=== PATIENT | female | born 1960 | race Caucasian/White ===

== ENCOUNTER 2020-04-16 13:41 | Inpatient (IN) | payer MEDICARE, MEDICAID, SELFPAY ==
[2020-04-16 13:52] VITALS: BP 104/83; PULSE 128; RESP 18; TEMP 36.6; O2SAT 95; BMI 32.9
[2020-04-16 14:55] LABS: Basophils Absolute Auto 0.1 X10*3/uL (0.0-0.2); Basophils Percent Auto 0.2 % (0-2); Eosinophils Absolute Auto 0.3 X10*3/uL (0.0-0.4); Hematocrit 42.8 % (37-47); Imm Gran Abs Auto 0.15 X10*3/uL (0.00-0.03); Imm Gran Pct Auto 0.5 % (0.0-0.4); Lymphocytes Percent Auto 7.2 % (20-40); MANUAL DIFF FLAG SCAN; Mean Corpuscular HGB Conc 32.7 g/dl (31.0-35.0); Mean Corpuscular Hemoglobin 29.1 pg (27.0-33.0); Mean Platelet Volume 10.7 fL (9.4-12.3); Monocytes Absolute Auto 1.4 X10*3/uL (0.1-1.2); Monocytes Percent Auto 4.9 % (2-11); Neutrophils Absolute Auto 23.8 X10*3/uL (2.0-8.3); Neutrophils Percent Auto 86.2 % (45-73); Platelet Count 412 X10*3/uL (160-400); Red Blood Count 4.81 X10*6/uL (4.20-5.50); Red Cell Distribution Width 12.7 % (11.0-16.0); SCAN SMEAR FLAG 1; White Blood Count 27.7 X10*3/uL (4.8-10.8)
[2020-04-16 15:21] LABS: Anion Gap 19 (12-20); Blood Urea Nitrogen 21 mg/dL (9-16); Calcium 9.8 mg/dL (8.4-10.2); Carbon Dioxide 24 mmol/L (22-29); Chloride 97 mmol/L (96-108); Creatinine Clr Calc Pharmacy 50.8; Estimated Glomerular Filt Rate 44; Glucose Random 189 mg/dL (60-115); Potassium 4.5 mmol/l (3.3-5.1); Sodium 135 mmol/L (135-145)
[2020-04-16 15:26] LABS: SLIDE REVIEW VERIFIED
[2020-04-16 19:34] VITALS: BP 103/66; PULSE 116; RESP 18; TEMP 37.1; O2SAT 96
--- NOTE | 2020-04-16 19:52 | CT_ITS ---
EXAMINATION: CT ABDOMEN AND PELVIS WITH CONTRAST CLINICAL INFORMATION: Left lower quadrant pain. COMPARISON: 09/27/2019 CT abdomen pelvis TECHNIQUE: Multidetector volumetric images were obtained from the superior aspect of the liver through the pubic symphysis following administration 100 mL of Omnipaque 350 intravenous contrast. Sagittal and coronal reformatted images were obtained on the technologist's workstation. Oral contrast: No This CT examination was performed using dose optimization techniques as appropriate, variously including the following: *Automated exposure control *Adjustment of mA and/or kV according to patient size (this includes techniques or standardized protocols for targeted exams where dose is matched to indication/reason for exam; i.e. extremities or head) *Use of iterative reconstruction technique DLP: 587 mGy-cm FINDINGS: LUNG BASES: The visualized lung bases are unremarkable. LIVER, GALLBLADDER, AND BILIARY TREE: Mild low-attenuation of liver parenchyma due to fatty change. Stable small hypodense lesion in the caudate lobe unchanged since CAT scan 09/27/2019. No suspicious focal liver lesion or intrahepatic bile duct dilatation. The right lobe of liver measures 19 cm superior inferior. Gallbladder is not visualized. There is no bile duct dilatation. PANCREAS: Unremarkable. SPLEEN: Unremarkable. ADRENAL GLANDS: Unremarkable. KIDNEYS AND URETERS: Mild fullness of the right and left renal pelvis and calyces without hydroureter. No renal or ureteral stone. Small exophytic cortical cyst at the midpole the right kidney. BLADDER: Unremarkable. GASTROINTESTINAL TRACT: Status post partial left kidney. Surgical suture line at the lower central pelvis at the rectum sigmoid junction. There are surgical sutures around the mid distal small bowel. There is no abnormal dilatation of the bowel loops or evidence of obstruction. There are scattered diverticula of the colon. There is no diverticulitis. There is no bowel wall thickening /edema. There is no bowel obstruction. There is a moderate volume of stool in the colon. The appendix is normal . The stomach is normal. There is no hiatal hernia. ABDOMINAL WALL: There is a complex Fat-containing abdominal wall hernia at the umbilicus and extending inferiorly. Inferior to the umbilicus is the largest hernia. This contains nonobstructed loops of small bowel. There is also a small right-sided spigelian hernia which contains nonobstructed loops of small bowel as well. LYMPH NODES: Normal. VASCULAR: Stable coarse calcification in the right gonadal vein. Normal enhancement of the abdominal and pelvic vasculature. PELVIC VISCERA: Unremarkable. OSSEOUS STRUCTURES: Unremarkable. CT/CT abdomen pelvis w con IMPRESSION: 1. No acute abnormality the abdomen or pelvis. 2. Stable ventral wall hernias and right-sided scalene hernia containing nonobstructive bowel loops. 3. Mild fullness of the right and left renal systems unchanged since prior studies. No renal or ureteral calculi. 4. Gallbladder is absent. No bile duct dilatation. 5. Hepatic steatosis. Stable small hypodense lesion caudate lobe
[2020-04-16] MEDS: iohexoL 350 MG/ML 100 ML INFUS..BTL IV (20:19)
--- NOTE | 2020-04-16 20:21 | ED_ITS ---
HPI - Abdominal Pain General Chief Complaint: Abdominal Pain Stated Complaint: abd pain Time Seen by Provider: 04/16/20 19:43 Source: patient Mode of arrival: ambulatory Limitations: no limitations History of Present Illness HPI narrative: Patient presents to ED for left lower quadrant pain. Patient states she is taking antibiotics for her diverticulitis that was diagnosed by telehealth by her PCP last . Patient states she started taking the meds yesterday. Patient denies any hematuria or dysuria, patient states no flank pain, fever, chills. Patient states history of multiple episodes of diverticul itis in the past. MD elicited complaint: abdominal pain Related Data Allergies Allergy/AdvReac Type Severity Reaction Status Date / Time Penicillins [PENICILLINS] Allergy Severe RASH Unverified 01/12/20 14:52 gabapentin [GABAPENTIN] Allergy Mild ABD PAIN Unverified 01/12/20 14:52 esomeprazole [Nexium] Allergy Unknown rash Verified 10/24/13 00:00 famotidine [From PEPCID] Allergy Unknown UPSET Unverified 01/12/20 14:52 STOMACH lansoprazole [Prevacid] Allergy Unknown rash Verified 10/24/13 00:00 penicillin V Allergy Unknown stomach Verified 10/24/13 00:00 pains From NEXIUM Allergy Unknown RASH Uncoded 01/12/20 14:52 Review of Systems Constitutional: Reports as per HPI and Reports no additional constitutional complaints Eyes: Reports as per HPI and Reports no additional eye complaints Reports system reviewed and no additional complaints, except as documented and Reports as per HPI Cardiovascular: Reports as per HPI and Reports no additional cardiovascular complaints Respiratory: Reports as per HPI and Reports no additional respiratory complaints Gastrointestinal: Reports as per HPI, Reports no additional gastrointestinal complaints, Reports abdominal pain and Reports vomiting Genitourinary: Reports no additional female genitourinary complaints and Reports as per HPI Musculoskeletal: Reports no additional musculoskeletal complaints and Reports as per HPI Skin/Breast: Reports system reviewed and no additional complaints, except as docu and Reports as per HPI Reports system reviewed and no additional complaints, except as documented and Reports as per HPI Physical Exam Vital Signs: Vital Signs: Last Vital Signs Temp 99.4 F 04/17/20 00:21 Pulse 112 H 04/17/20 00:21 Resp 16 04/17/20 00:21 BP 124/68 04/17/20 00:21 Pulse Ox 95 04/17/20 00:21 Body Mass Index 32.9 Const: General: cooperative, healthy appearing, comfortable, no acute distress, well developed, alert and awake Orientation/consciousness: oriented to person, oriented to place, oriented to time and patient oriented x3 HENMT: Head: Yes normal to inspection and Yes No palpable skull fracture present Eyes: General: appearance normal, both eyes and all related structures Neck: Neck: Yes normal visual inspection and Yes full ROM Chest: Chest palpation & inspection: normal inspection of the chest and normal palpation of entire chest wall Resp: Effort & Inspection: normal respiratory effort and able to speak in complete sentences Cardio: Jugular venous distension: no JVD Heart sounds: S1 normal heart sound present and S2 normal heart sound present GI: Inspection: Yes normal to inspection and No abdominal wall ecchymosis Palpation (GI): Soft to palpation, not firm and Tenderness to palpation present (GI) in the LLQ : General: No CVA tenderness and Yes no CVA tenderness Back/Spine/Pelvis: Back: no CVA tenderness, No CVA tenderness and No back tenderness Skin: General skin exam: no rashes or lesions noted and elasticity normal Neuro: General: oriented to person, oriented to place, oriented to time, patient oriented x3 and CN's II-XI intact bilaterally Cranial nerves: Yes CN's II-XII intact bilaterally Extrem: General: Yes normal to inspection and Yes full ROM Psych: Appearance: grossly normal, well kempt and not disheveled Course Course Course Narrative: Patient was in the waiting room for 5 hours before I saw her in a bed. Patient already have blood work done. Patient white blood cell count 27 and tachycardiac. Vital signs and labs were done and waiting room. Will start septic protocol which includes 2 L IV fluids, Levaquin, metronidazole IV antibiotics, and lactic acid. Patient also sent for abdominal CT scan Reevaluation(s) Reevaluation #1: Patient's abdominal CT scan came back negative for diverticulitis. Urine negative for infection. Chest x-ray negative for pneumonia. Due to patient meeting SIRS criteria is still having ?dry abdominal pain patient will be admitted to hospitalist service. Case accepted by hospitalist on-call. Time: 00:55 MDM - Abdominal Pain MDM Narrative Medical decision making narrative: Abdominal pain Lab Data Result diagrams: 04/16/20 14:48 04/16/20 14:48 Labs: Lab Results 04/16/20 04/16/20 04/16/20 Range/Units 14:48 14:48 20:07 WBC 27.7 H (4.8-10.8) X10*3/uL RBC 4.81 (4.20-5.50) X10*6/uL Hgb 14.0 (12.0-16.0) g/dl Hct 42.8 (37-47) % MCV 89.0 (80-98) fL MCH 29.1 (27.0-33.0) pg MCHC 32.7 (31.0-35.0) g/dl RDW 12.7 (11.0-16.0) % Plt Count 412 H (160-400) X10*3/uL MPV 10.7 (9.4-12.3) fL Immature Gran % (Auto) 0.5 H (0.0-0.4) % Neut % (Auto) 86.2 H (45-73) % Lymph % (Auto) 7.2 L (20-40) % [place] % (Auto) 4.9 (2-11) % Eos % (Auto) 1.0 (0-4) % Baso % (Auto) 0.2 (0-2) % Lymph # (Auto) 2.0 (1.2-4.9) X10*3/uL [place] # (Auto) 1.4 H (0.1-1.2) X10*3/uL Eos # (Auto) 0.3 (0.0-0.4) X10*3/uL Baso # (Auto) 0.1 (0.0-0.2) X10*3/uL Abs Immat Gran (auto) 0.15 H (0.00-0.03) X10*3/uL Absolute Neuts (auto) 23.8 H (2.0-8.3) X10*3/uL Absolute Nucleated RBC 0.000 (0.0-0.012) X10*3/uL Nucleated RBC % (auto) 0.0 (0.0-0.2) /100WBC Smear Tech's Comments VERIFIED Sodium 135 (135-145) mmol/L Potassium 4.5 (3.3-5.1) mmol/l Chloride 97 (96-108) mmol/L Carbon Dioxide 24 (22-29) mmol/L Anion Gap 19 (12-20) BUN 21 H (9-16) mg/dL Creatinine 1.24 (0.5-1.4) mg/dL Estim Creat Clear Calc 50.8 Estimated GFR 44 Random Glucose 189 H (60-115) mg/dL Lactic Acid 2.1 H* (0.5-2.0) mmol/L Lactic Acid Fup @ 2Hr (0.5-2.0) mmol/L Calcium 9.8 (8.4-10.2) mg/dL Urine Color Urine Appearance Urine pH (5.0-8.0) Ur Specific [place] (1.005-1.025) Urine Protein (NEG-TRACE) MG/DL Urine Glucose (UA) (NEG) MG/DL Urine Ketones (NEG) MG/DL Urine Blood (NEG) Urine Nitrite (NEG) Ur Leukocyte Esterase (NEG) 04/16/20 04/16/20 Range/Units 21:31 22:30 WBC (4.8-10.8) X10*3/uL RBC (4.20-5.50) X10*6/uL Hgb (12.0-16.0) g/dl Hct (37-47) % MCV (80-98) fL MCH (27.0-33.0) pg MCHC (31.0-35.0) g/dl RDW (11.0-16.0) % Plt Count (160-400) X10*3/uL MPV (9.4-12.3) fL Immature Gran % (Auto) (0.0-0.4) % Neut % (Auto) (45-73) % Lymph % (Auto) (20-40) % [place] % (Auto) (2-11) % Eos % (Auto) (0-4) % Baso % (Auto) (0-2) % Lymph # (Auto) (1.2-4.9) X10*3/uL [place] # (Auto) (0.1-1.2) X10*3/uL Eos # (Auto) (0.0-0.4) X10*3/uL Baso # (Auto) (0.0-0.2) X10*3/uL Abs Immat Gran (auto) (0.00-0.03) X10*3/uL Absolute Neuts (auto) (2.0-8.3) X10*3/uL Absolute Nucleated RBC (0.0-0.012) X10*3/uL Nucleated RBC % (auto) (0.0-0.2) /100WBC Smear Tech's Comments Sodium (135-145) mmol/L Potassium (3.3-5.1) mmol/l Chloride (96-108) mmol/L Carbon Dioxide (22-29) mmol/L Anion Gap (12-20) BUN (9-16) mg/dL Creatinine (0.5-1.4) mg/dL Estim Creat Clear Calc Estimated GFR Random Glucose (60-115) mg/dL Lactic Acid (0.5-2.0) mmol/L Lactic Acid Fup @ 2Hr 1.8 (0.5-2.0) mmol/L Calcium (8.4-10.2) mg/dL Urine Color YELLOW Urine Appearance CLEAR Urine pH 5.5 (5.0-8.0) Ur Specific [place] 1.025 (1.005-1.025) Urine Protein NEG (NEG-TRACE) MG/DL Urine Glucose (UA) 500 H (NEG) MG/DL Urine Ketones 5 (NEG) MG/DL Urine Blood NEG (NEG) Urine Nitrite NEG (NEG) Ur Leukocyte Esterase NEG (NEG) Discharge Plan Discharge Clinical Impression: Abdominal pain, SIRS (systemic inflammatory response syndrome) Patient Disposition: Admitted As Inpatient [facility] Past Medical History Medical History Asthma Depression Diabetes 1.5, managed as type 2 HTN (hypertension) Migraines Social History Social History Alcohol intake: never Smoking Status: Never smoker Use of substances other than those prescribed or required for medical reasons: No Advance Directives: No
[2020-04-16] MEDS: 0.9 % Sodium Chloride 1,000 ML 999 ML IV ×3 (20:26→22:15)
[2020-04-16] MEDS: metroNIDAZOLE/NS 500 MG/100 ML PIGGYBACK 100 MG IV (20:27)
[2020-04-16 21:02] LABS: Lactic Acid 2.1 mmol/L (0.5-2.0)
[2020-04-16] MEDS: Morphine Sulfate 4 MG/ML CARTRIDGE IVPUSH (21:03)
[2020-04-16] MEDS: ondansetron HCL 4 MG/2 ML VIAL IVPUSH (21:03)
[2020-04-16] MEDS: levoFLOXacin/D5W 750 MG/150 ML PIGGYBACK 100 MG IV (21:29)
[2020-04-16 21:37] VITALS: BP 116/68; PULSE 101; RESP 14; TEMP 36.7
[2020-04-16 21:38] LABS: Glucose Urine UA 500 MG/DL (NEG); Leukocyte Esterase Urine NEG (NEG); Nitrite Urine NEG (NEG); PH 5.5 (5.0-8.0); Specific Gravity - Urine 1.025 (1.005-1.025); Urine Blood NEG (NEG); Urine Ketones 5 MG/DL (NEG); Urine Protein NEG (NEG-TRACE)
[2020-04-16 21:42] LABS: Appearance Urine CLEAR; Color Urine YELLOW
--- NOTE | 2020-04-16 22:02 | XR_ITS ---
EXAMINATION: XR CHEST CLINICAL INFORMATION: Pneumonia COMPARISON: None TECHNIQUE: Frontal view of the chest was obtained. FINDINGS: Aside from hypoexpanded lungs and some minimal basilar cysts, no significant abnormality is noted involving the heart, lungs, mediastinum, bony thorax or soft tissues. XR/XR chest 1V IMPRESSION: No acute intrathoracic disease
[2020-04-16 22:13] LABS: Reflex Lactate? Lactic Acid Added
[2020-04-16 22:50] LABS: ~Lactic Acid-LAB USE ONLY 1.8 mmol/L (0.5-2.0)
[2020-04-17] VITALS (12 sets, daily range): BP systolic 98–138; BP diastolic 55–74; PULSE 56–112; RESP 16–20; TEMP 36.2–37.4; O2SAT 95–98; BMI 32.9
[2020-04-17 01:15] LABS: COVID-19 Test Negative (Negative)
--- NOTE | 2020-04-17 05:31 | P.HPHOSP_ITS ---
History of Present Illness Date of Service: 04/17/20 Chief Complaint: Abdominal pain This is a 59-year-old female with past medical history of diabetes, hypertension, migraine headaches, depression, asthma, history of diverticulitis status post colectomy who presents to the hospital with complaints of left lower quadrant abdominal pain that started on [place] night. Patient describes the pain as stabbing, 10/10, nonradiating, associated with nausea and vomiting, no diarrhea. Patient was clinically treated by her PCP for diverticulitis and was started on Cipro and Flagyl but patient was unable to give a down for 2 days. Therefore she decided to come to the hospital. She otherwise denies any chest pain, no shortness of breath cough. No fever but has been having chills. Currently experiencing a migraine headache , no change in vision, no urinary symptoms and no lower extremity edema. No weakness numb ness or tingling. On arrival to the ED hemodynamically stable with a heart rate of 128, other vitals normal Labs are significant for WBC count of 27.7, with a left shift, CMP significant for lactic acid of 2.1 which improved after fluids, BUN of 21, creatinine of 1.24 (baseline of 1.0) CT abdomen/pelvis shows no acute abnormality Past medical history: Diabetes, hypertension, migraine headache, depression, asthma, history of diverticulitis Surgical history: Colectomy after perforated diverticulitis per patient, hysterectomy, cholecystectomy Family history: Significant for diabetes hypertension Social history: Comes from home, denies any tobacco alcohol or illicit drugs Review of Systems Review of Systems: Yes all other systems are reviewed and are negative Neurologic: Reports system reviewed and no additional complaints, except as documented and Reports as per [facility] Medical History Asthma Depression Diabetes 1.5, managed as type 2 HTN (hypertension) Migraines Social History Household Members: Significant Other Housing: Apartment Do you presently have visiting nurse or other home services: No Alcohol intake: never Smoking Status: Never smoker Use of substances other than those prescribed or required for medical reasons: No Have you been hit, kicked, punched, or otherwise hurt by someone within the past year? If so, by whom?: No Do you feel safe in your current relationship?: Yes Is there a partner from a previous relationship who is making you feel unsafe now?: No Are you made to feel afraid or neglected: No Advance Directives: No Do you have thoughts of harming others: None Do you have a plan to hurt others: No Plan Recently lost weight without trying: No Meds Allergies Allergy/AdvReac Type Severity Reaction Status Date / Time Penicillins [PENICILLINS] Allergy Severe RASH Verified 04/17/20 05:30 gabapentin [GABAPENTIN] Allergy Mild ABD PAIN Verified 04/17/20 05:30 esomeprazole [Nexium] Allergy Unknown rash Verified 10/24/13 00:00 famotidine [From PEPCID] Allergy Unknown UPSET Verified 04/17/20 05:30 STOMACH lansoprazole [Prevacid] Allergy Unknown rash Verified 10/24/13 00:00 penicillin V Allergy Unknown stomach Verified 10/24/13 00:00 pains From NEXIUM Allergy Unknown RASH Uncoded 01/12/20 14:52 Home Medications Medication Instructions Recorded Confirmed Type aspirin 81 mg PO DAILY 04/17/20 04/17/20 History atorvastatin 1 tab PO DAILY 04/17/20 04/17/20 History budesonide-formoterol [Symbicort] 2 puff PO BID 04/17/20 04/17/20 History bupropion HCl 1 tab PO QAM 04/17/20 04/17/20 History yyrgqcshdl-mzzdgwi-nywwctov 1 cap PO Q6H PRN 04/17/20 04/17/20 History calcium carbonate-vitamin D3 1 tab PO BID 04/17/20 04/17/20 History empagliflozin [Jardiance] 1 tab PO DAILY 04/17/20 04/17/20 History glimepiride See Rx Instructions .ROUTE .COMPLEX 04/17/20 04/17/20 History hydroxyzine HCl 1 tab PO DAILY 04/17/20 04/17/20 History levocetirizine 1 tab PO BEDTIME 04/17/20 04/17/20 History lisinopril 1 tab PO DAILY 04/17/20 04/17/20 History omeprazole 2 cap PO BID 04/17/20 04/17/20 History ondansetron HCl 1 tab PO Q8H 04/17/20 04/17/20 History pregabalin 1 cap PO DAILY 04/17/20 04/17/20 History sucralfate 1 tab PO TID 04/17/20 04/17/20 History sumatriptan succinate 100 mg PO DAILY 04/17/20 04/17/20 History tiotropium bromide [Spiriva 2 puff INHALATION DAILY 04/17/20 04/17/20 History Respimat] tizanidine 1 tab PO TID 04/17/20 04/17/20 History zafirlukast 1 tab PO BID 04/17/20 04/17/20 History zolpidem 1 tab PO BEDTIME PRN 04/17/20 04/17/20 History Physical Exam Vital Signs and Narrative: Vital Signs: Last Vital Signs Temp 97.5 F 04/17/20 05:15 Pulse 56 04/17/20 05:15 Resp 18 04/17/20 05:15 BP 126/74 04/17/20 05:15 Pulse Ox 95 04/17/20 05:15 Body Mass Index 32.9 Const: General: cooperative and no acute distress Orientatio n/consciousness: patient oriented x3 Eyes: General: appearance normal, both eyes and all related structures Pupils: Equal, round and reactive pupils present Resp: Effort & Inspection: normal respiratory effort and able to speak in complete sentences Auscultation: clear to auscultation bilaterally Cardio: Rate: regular rate Rhythm: regular rhythm GI: Other: Very tender to soft palpation, in the left lower quadrant, there is rebound tenderness Auscultation: normal bowel sounds Skin: General skin exam: no rashes or lesions noted Neuro: General: patient oriented x3 Cranial nerves: Yes Equal, round and reactive pupils present Cognition (Neuro): normal cognition Extrem: General: Yes normal to inspection and Yes no pedal edema Results Labs CBC and Chem 7: 04/16/20 14:48 04/16/20 14:48 Labs: Laboratory Results - last 24 hr 04/16/20 04/16/20 04/16/20 14:48 14:48 20:07 MCV 89.0 MCH 29.1 MCHC 32.7 RDW 12.7 Plt Count 412 H MPV 10.7 Immature Gran % (Auto) 0.5 H Neut % (Auto) 86.2 H Lymph % (Auto) 7.2 L [place] % (Auto) 4.9 Eos % (Auto) 1.0 Baso % (Auto) 0.2 Lymph # (Auto) 2.0 [place] # (Auto) 1.4 H Eos # (Auto) 0.3 Baso # (Auto) 0.1 Abs Immat Gran (auto) 0.15 H Absolute Neuts (auto) 23.8 H Absolute Nucleated RBC 0.000 Nucleated RBC % (auto) 0.0 Smear Tech's Comments VERIFIED Anion Gap 19 Estim Creat Clear Calc 50.8 Estimated GFR 44 Random Glucose 189 H Lactic Acid 2.1 H* Lactic Acid Fup @ 2Hr Calcium 9.8 Urine Color Urine Appearance Urine pH Ur Specific [place] Urine Protein Urine Glucose (UA) Urine Ketones Urine Blood Urine Nitrite Ur Leukocyte Esterase COVID-19 (MARCI) COVID-19 Clin Com 04/16/20 04/16/20 04/17/20 21:31 22:30 00:35 MCV MCH MCHC RDW Plt Count MPV Immature Gran % (Auto) Neut % (Auto) Lymph % (Auto) [place] % (Auto) Eos % (Auto) Baso % (Auto) Lymph # (Auto) [place] # (Auto) Eos # (Auto) Baso # (Auto) Abs Immat Gran (auto) Absolute Neuts (auto) Absolute Nucleated RBC Nucleated RBC % (auto) Smear Tech's Comments Anion Gap Estim Creat Clear Calc Estimated GFR Random Glucose Lactic Acid Lactic Acid Fup @ 2Hr 1.8 Calcium Urine Color YELLOW Urine Appearance CLEAR Urine pH 5.5 Ur Specific [place] 1.025 Urine Protein NEG Urine Glucose (UA) 500 H Urine Ketones 5 Urine Blood NEG Urine Nitrite NEG Ur Leukocyte Esterase NEG COVID-19 (MARCI) Negative COVID-19 Clin Com See Note Imaging Radiologist's Impressions: Impressions Abdomen/Pelvis CT 04/16/20 19:52 IMPRESSION: 1. No acute abnormality the abdomen or pelvis. 2. Stable ventral wall hernias and right-sided scalene hernia containing nonobstructive bowel loops. 3. Mild fullness of the right and left renal systems unchanged since prior studies. No renal or ureteral calculi. 4. Gallbladder is absent. No bile duct dilatation. 5. Hepatic steatosis. Stable small hypodense lesion caudate lobe Chest X-Ray 04/16/20 22:02 IMPRESSION: No acute intrathoracic disease Assessment and Plan (1) Abdominal pain: Status: Acute (2) SIRS (systemic inflammatory response syndrome): Status: Acute (3) History of diverticulitis: Status: Acute This is an 59-year-old female who presents hospital with abdominal pain # intractable abdominal pain - patient has a history of diverticulitis, and although CT abdomen is negative, patient has intractable left lower quadrant abdominal - has leukocytosis with left shift - tachycardia, afebrile, - was treated with antibiotics outpatient was unable to acute p.o. due to constant vomiting Plan: - will start patient on antibiotics for presumed treatment of diverticulitis - pain control - follow symptom relief and also blood cultures # sepsis - has leukocytosis, tachycardia, lactic acidosis - source most likely diverticulitis although CT abdomen is negative Plan: - IV antibiotics as above - follow cultures # migraine headache - resume home regimen DVT prophylaxis: Lovenox
[2020-04-17] MEDS: cefTRIAXone sodium 1 GM in 0.9 % Sodium Chloride 50 ML IV (06:19)
[2020-04-17] MEDS: Morphine Sulfate 2 MG/ML CARTRIDGE IVPUSH ×4 (06:20→19:59)
[2020-04-17] MEDS: ondansetron HCL 4 MG/2 ML VIAL IVPUSH ×2 (06:20→17:10)
[2020-04-17] MEDS: Enoxaparin Sodium 40 MG/0.4 ML SYRINGE SUBCUT (06:21)
[2020-04-17] MEDS: Omeprazole 20 MG CAPSULE.DR 40 MG PO ×2 (06:25→17:10)
[2020-04-17] MEDS: metroNIDAZOLE/NS 500 MG/100 ML PIGGYBACK 100 MG IV ×3 (06:56→21:55)
[2020-04-17] MEDS: Fluticasone/Vilanterol 100/25 BLST.W.DEV 1 PUFF INHALE (07:43)
[2020-04-17] MEDS: Atorvastatin Calcium 20 MG TABLET PO (07:59)
[2020-04-17] MEDS: Aspirin Enteric Coated 81 MG TABLET.DR PO (07:59)
[2020-04-17] MEDS: SUMAtriptan succinate 100 MG TABLET PO (07:59)
[2020-04-17] MEDS: Pregabalin 150 MG CAPSULE PO (07:59)
[2020-04-17] MEDS: hydrOXYzine HCL 25 MG TABLET PO (07:59)
[2020-04-17] MEDS: Sucralfate 1 GM TABLET PO ×3 (07:59→17:10)
[2020-04-17] MEDS: buPROPion HCl XL 150 MG TAB.ER.24H PO (07:59)
[2020-04-17] MEDS: TiZANidine HCL 4 MG TABLET 2 MG PO ×3 (08:00→19:58)
[2020-04-17] MEDS: lisinopriL 10 MG TABLET PO (08:01)
[2020-04-17] MEDS: 0.9 % Sodium Chloride Flush 3 ML SYRINGE IVFLUSH ×2 (08:01→21:55)
[2020-04-17 08:12] LABS: Glucose, Whole Blood 105 mg/dL (60-115)
--- NOTE | 2020-04-17 10:13 | MHC.CM.PN ---
dc plan home n coraeiazul pt has own transportion home
[2020-04-17 11:27] LABS: Glucose, Whole Blood 112 mg/dL (60-115)
--- NOTE | 2020-04-17 12:07 | HO.PM.IMPN ---
Subjective Subjective Date of Service: 04/17/20 Interval History: abd pain Cardiovascular Cardiovascular: Reports no additional cardiovascular complaints Respiratory Respiratory: Reports no additional respiratory complaints Physical Exam Vital Signs: Vital Signs: Last Vital Signs Temp 97.7 F 04/17/20 11:29 Pulse 68 04/17/20 11:29 Resp 20 04/17/20 11:29 BP 106/57 L 04/17/20 11:29 Pulse Ox 95 04/17/20 11:29 Body Mass Index 32.9 General: AO X 3, no acute distress Resp: CTA bilateral CVS: S1,S2,RRR GI: soft, LLQ tender Neuro: motor grossly intact Psych: appropriate affect Objective Data Current Medications Generic Name Dose Route Start Last Admin Trade Name Freq PRN Reason Stop Dose Admin Acetaminophen 650 mg 04/17/20 04:38 Acetaminophen 325 Mg Tablet PO Q6H PRN Pain, Mild (Pain Scale 1-3) Acetaminophen/Butalbital/Caffeine 1 tab 04/17/20 06:24 Butalb/Acetamin/Caff 50/325/40 Tablet PO Q6H PRN Headache Aspirin 81 mg 04/17/20 09:00 04/17/20 07:59 Aspirin Enteric Coated 81 Mg Tablet.Dr PO 81 mg DAILY [facility] Administration Atorvastatin Calcium 20 mg 04/17/20 09:00 04/17/20 07:59 Atorvastatin Calcium 20 Mg Tablet PO 20 mg DAILY [facility] Administration Bupropion HCl 150 mg 04/17/20 09:00 04/17/20 07:59 Bupropion Hcl Xl 150 Mg Tab.Er.24h PO 150 mg DAILY [facility] Administration Docusate Sodium 100 mg 04/17/20 04:38 Docusate Sodium 100 Mg Capsule PO DAILY PRN Constipation Enoxaparin Sodium 40 mg 04/17/20 06:00 04/17/20 06:21 Enoxaparin Sodium 40 Mg/0.4 Ml Syringe SUBCUT 40 mg Q24H [facility] Administration Fluticasone/Vilanterol 1 puff 04/17/20 08:00 04/17/20 07:43 Fluticasone/Vilanterol 100/25 Blst.W.Dev INHALE 1 puff RDAILY [facility] Administration Hydroxyzine HCl 25 mg 04/17/20 09:00 04/17/20 07:59 Hydroxyzine Hcl 25 Mg Tablet PO 25 mg DAILY [facility] Administration Metronidazole 500 mg in 100 mls @ 100 mls/hr 04/17/20 06:00 04/17/20 07:56 Flagyl IV Infused Q8H [facility] Infusion Ceftriaxone Sodium 1 gm/ 50 mls @ 100 mls/hr 04/17/20 06:00 04/17/20 06:49 Sodium Chloride IV Infused Q24H [facility] Infusion Insulin Human Lispro 0 unit 04/17/20 07:30 04/17/20 11:30 Insulin Lispro 100 Unit/Ml 3 Ml Vial SUBCUT Not Given QIDACHS [facility] Protocol Lisinopril 10 mg 04/17/20 09:00 04/17/20 08:01 Lisinopril 10 Mg Tablet PO 10 mg DAILY [facility] Administration Protocol Morphine Sulfate 2 mg 04/17/20 04:38 04/17/20 11:30 Morphine Sulfate 2 Mg/Ml Cartridge IVPUSH 2 mg Q4H PRN Administration Pain, Severe (Pain Scale 7-10) Non-Formulary Medication 1 tab 04/17/20 09:00 Zafirlukast PO BID [facility] Non-Formulary Medication 1 tab 04/17/20 21:00 Levocetirizine PO BEDTIME [facility] Omeprazole 40 mg 04/17/20 06:30 04/17/20 06:25 Omeprazole 20 Mg Capsule.Dr PO 40 mg BID@0630,1630 [facility] Administration Ondansetron HCl 4 mg 04/17/20 04:38 04/17/20 06:20 Ondansetron Hcl 4 Mg/2 Ml Vial IVPUSH 4 mg Q8H PRN Administration Nausea and Vomiting Pregabalin 150 mg 04/17/20 09:00 04/17/20 07:59 Pregabalin 150 Mg Capsule PO 150 mg DAILY [facility] Administration Sodium Chloride 3 ml 04/17/20 08:00 04/17/20 08:01 0.9 % Sodium Chloride Flush 3 Ml Syringe IVFLUSH 3 ml QSHIFT [facility] Administration Sucralfate 1 gm 04/17/20 07:30 04/17/20 11:30 Sucralfate 1 Gm Tablet PO 1 gm TIDAC [facility] Administration Sumatriptan Succinate 100 mg 04/17/20 09:00 04/17/20 07:59 Sumatriptan Succinate 100 Mg Tablet PO 100 mg DAILY PRN Administration Migraine Headache Tiotropium [place] 1 puff 04/17/20 08:00 04/17/20 07:43 Tiotropium [place] 18 Mcg Cap.W.Dev INHALE 1 puff RDAILY [facility] Administration Tizanidine HCl 2 mg 04/17/20 09:00 04/17/20 08:00 Tizanidine Hcl 4 Mg Tablet PO 2 mg TID [facility] Administration Zolpidem Tartrate 5 mg 04/17/20 05:36 Zolpidem Tartrate 5 Mg Tablet PO BEDTIME PRN insomnia Labs CBC & Chem 7: 04/16/20 14:48 04/16/20 14:48 Assessment and Plan (1) Abdominal pain: Status: Acute (2) SIRS (systemic inflammatory response syndrome): Status: Acute (3) History of diverticulitis: Status: Acute Assessment and Plan: 59-year-old female who presents hospital with abdominal pain Left lower quadrant abdominal pain with inflammatory markers on labs No evidence of diverticulitis on CT scan GI eval Empiric antibiotics Doubt sepsis DM insulin HTN lisinipril
--- NOTE | 2020-04-17 13:13 | PM.EVENT ---
Event Note Date of Service: 04/17/20 Event Note: GI consult dictated LLQ pain, etiolgy unclear. Ddx includes partially treated diverticulitis, gastroenteritis, colitis CT reviewed, some nonspecific thickening of sigmoid rec, cont abx, check stools, follow clinically.
--- NOTE | 2020-04-17 13:27 | CONS_ITS ---
DATE OF SERVICE: 04/17/2020 REFERRING PHYSICIAN: Henok Celaya MD REASON FOR CONSULTATION: Left lower quadrant pain. HISTORY OF PRESENT ILLNESS: The patient is a pleasant 59-year-old woman, seen today in consultation because of left lower quadrant pain and she states she had this off and on over a week prior to admission and was seen by her primary care provider for a preop evaluation for cataract surgery and evaluated at that time. She was prescribed antibiotics and started these. Three days prior to admission, the pain became worse in the left lower quadrant, and was associated with nausea and vomiting of blackish material. She was unable to keep the medication down and presented to the emergency room. She denies fevers. She has had some chills. She has had some headaches. She denies any melena or hematochezia. She was evaluated in the emergency department, where she was noted to be tachycardic and laboratory studies showed an elevated white blood cell count to 27.7. She underwent CT scanning of the abdomen and pelvis, which was reviewed with Dr. Robins. This shows some nonspecific thickening in the sigmoid, but is negative for any pericolonic fat stranding. She does have a history of diverticular disease and previously underwent sigmoid resection approximately 10 years ago by her report. She has followed up at [facility] and has undergone upper endoscopy and colonoscopy about 3 years ago, which she states was remarkable for polyps. Those records are not available, but will be reviewed. PAST MEDICAL HISTORY: 1. Hypertension. 2. Diabetes. 3. Asthma. 4. Diverticular disease. 5. Migraines. 6. Depression. 7. Elevated cholesterol. CURRENT MEDICATIONS: Current medication list is reviewed in the chart. ALLERGIES: MULTIPLE MEDICATION ALLERGIES ARE REVIEWED. FAMILY HISTORY: This is reviewed with the patient and is noncontributory. SOCIAL HISTORY: There is no current tobacco, alcohol, or substance abuse. REVIEW OF SYSTEMS: SKIN: No pruritus. HEENT: Negative. CARDIOPULMONARY: She denies shortness of breath or chest pain. GASTROINTESTINAL: As above. GENITOURINARY: Negative. NEUROPSYCHIATRIC: Negative. PHYSICAL EXAMINATION: GENERAL: Shows a pleasant female, lying comfortably in bed. VITAL SIGNS: Reviewed in electronic medical record and are stable. SKIN: Anicteric. HEENT: No scleral icterus. NECK: Without lymphadenopathy or thyromegaly. LUNGS: Clear. HEART: Regular rate and rhythm. S1, S2. No murmur. ABDOMEN: Soft without focal masses or tenderness. Bowel sounds are present. There is some mild tenderness to palpation over the left lower quadrant. There is no guarding or rebound. EXTREMITIES: Without edema. LABORATORY DATA: Reviewed including her CT scan as above. IMPRESSION: Left lower quadrant pain. The etiology for her left lower quadrant pain is not clear. This is a broad differential diagnosis includes diverticular disease as well as colitis and gastroenteritis. We discussed possible causes today. Her CT scan shows some mild nonspecific thickening of the sigmoid and I did discuss with her that she may need followup colonoscopy as an outpatient. Once her present condition improves, I agree with treating her with antibiotics for the time being. I would obtain stool specimens to rule out any treatable infectious etiology and follow her clinically. Thank you for asking me to see her. I will follow her in the hospital with you. MD OSWALDO Grimes/NADYA / [id number]
[2020-04-17] MEDS: Butalb/Acetamin/Caff 50/325/40 TABLET 1 TAB PO ×2 (15:01→21:54)
[2020-04-17 16:50] LABS: Glucose, Whole Blood 93 mg/dL (60-115)
[2020-04-17 21:55] LABS: Glucose, Whole Blood 96 mg/dL (60-115)
[2020-04-17] MEDS: Zolpidem Tartrate 5 MG TABLET PO (21:55)
[2020-04-18] MEDS: Morphine Sulfate 2 MG/ML CARTRIDGE IVPUSH ×6 (04:15→21:35)
[2020-04-18 04:43] LABS: MANUAL DIFF FLAG NO
[2020-04-18 04:57] LABS: Basophils Percent Auto 0.2 % (0-2); Eosinophils Absolute Auto 0.4 X10*3/uL (0.0-0.4); Eosinophils Percent Auto 2.9 % (0-4); Imm Gran Abs Auto 0.08 X10*3/uL (0.00-0.03); Imm Gran Pct Auto 0.6 % (0.0-0.4); Lymphocytes Absolute Auto 2.5 X10*3/uL (1.2-4.9); Lymphocytes Percent Auto 17.7 % (20-40); Mean Corpuscular HGB Conc 32.3 g/dl (31.0-35.0); Mean Corpuscular Hemoglobin 29.5 pg (27.0-33.0); Mean Corpuscular Volume 91.4 fL (80-98); Mean Platelet Volume 10.8 fL (9.4-12.3); Monocytes Absolute Auto 0.9 X10*3/uL (0.1-1.2); Monocytes Percent Auto 6.5 % (2-11); Neutrophils Percent Auto 72.1 % (45-73); Platelet Count 239 X10*3/uL (160-400); Red Blood Count 3.39 X10*6/uL (4.20-5.50); Red Cell Distribution Width 12.6 % (11.0-16.0); White Blood Count 13.9 X10*3/uL (4.8-10.8)
[2020-04-18 05:20] LABS: Anion Gap 12 (12-20); Blood Urea Nitrogen 15 mg/dL (9-16); Calcium 7.6 mg/dL (8.4-10.2); Carbon Dioxide 21 mmol/L (22-29); Chloride 105 mmol/L (96-108); Creatinine Clr Calc Pharmacy 84.1; Estimated Glomerular Filt Rate > 60; Glucose Random 84 mg/dL (60-115); Potassium 3.8 mmol/l (3.3-5.1); Sodium 134 mmol/L (135-145)
[2020-04-18] MEDS: cefTRIAXone sodium 1 GM in 0.9 % Sodium Chloride 50 ML IV (05:38)
[2020-04-18] MEDS: Omeprazole 20 MG CAPSULE.DR 40 MG PO ×2 (05:38→17:27)
[2020-04-18] MEDS: Enoxaparin Sodium 40 MG/0.4 ML SYRINGE SUBCUT (05:38)
[2020-04-18] MEDS: SUMAtriptan succinate 100 MG TABLET PO (05:44)
[2020-04-18] MEDS: metroNIDAZOLE/NS 500 MG/100 ML PIGGYBACK 100 MG IV ×3 (06:14→21:57)
[2020-04-18] MEDS: ondansetron HCL 4 MG/2 ML VIAL IVPUSH ×2 (06:18→19:24)
[2020-04-18 07:25] VITALS: BP 108/63; PULSE 72; RESP 19; TEMP 36.7; O2SAT 94
[2020-04-18] MEDS: Fluticasone/Vilanterol 100/25 BLST.W.DEV 1 PUFF INHALE (07:35)
[2020-04-18 07:42] VITALS: PULSE 68; O2SAT 95
[2020-04-18] MEDS: TiZANidine HCL 4 MG TABLET 2 MG PO ×3 (07:51→20:34)
[2020-04-18] MEDS: buPROPion HCl XL 150 MG TAB.ER.24H PO (07:52)
[2020-04-18] MEDS: hydrOXYzine HCL 25 MG TABLET PO (07:52)
[2020-04-18] MEDS: Pregabalin 150 MG CAPSULE PO (07:53)
[2020-04-18] MEDS: Atorvastatin Calcium 20 MG TABLET PO (07:53)
[2020-04-18] MEDS: Aspirin Enteric Coated 81 MG TABLET.DR PO (07:54)
[2020-04-18] MEDS: Sucralfate 1 GM TABLET PO ×3 (07:54→17:27)
[2020-04-18] MEDS: lisinopriL 10 MG TABLET PO (07:55)
[2020-04-18 07:58] LABS: Glucose, Whole Blood 90 mg/dL (60-115)
[2020-04-18] MEDS: 0.9 % Sodium Chloride Flush 3 ML SYRINGE IVFLUSH ×3 (08:11→20:35)
--- NOTE | 2020-04-18 09:30 | HO.PM.IMPN ---
Subjective Subjective Date of Service: 04/18/20 Interval History: improving, wants to start diet Cardiovascular Cardiovascular: Reports no additional cardiovascular complaints Respiratory Respiratory: Reports no additional respiratory complaints Physical Exam Vital Signs: Vital Signs: Last Vital Signs Temp 98.0 F 04/18/20 07:25 Pulse 72 04/18/20 07:25 Resp 19 04/18/20 07:25 BP 108/63 04/18/20 07:25 Pulse Ox 94 04/18/20 07:25 Body Mass Index 32.9 General: AO X 3, no acute distress Resp: CTA bilateral CVS: S1,S2,RRR GI: soft, llq tender, non distended Neuro: motor grossly intact Psych: appropriate affect Objective Data Current Medications Generic Name Dose Route Start Last Admin Trade Name Freq PRN Reason Stop Dose Admin Acetaminophen 650 mg 04/17/20 04:38 Acetaminophen 325 Mg Tablet PO Q6H PRN Pain, Mild (Pain Scale 1-3) Acetaminophen/Butalbital/Caffeine 1 tab 04/17/20 06:24 04/17/20 21:54 Butalb/Acetamin/Caff 50/325/40 Tablet PO 1 tab Q6H PRN Administration Headache Aspirin 81 mg 04/17/20 09:00 04/18/20 07:54 Aspirin Enteric Coated 81 Mg Tablet.Dr PO 81 mg DAILY [facility] Administration Atorvastatin Calcium 20 mg 04/17/20 09:00 04/18/20 07:53 Atorvastatin Calcium 20 Mg Tablet PO 20 mg DAILY [facility] Administration Bupropion HCl 150 mg 04/17/20 09:00 04/18/20 07:52 Bupropion Hcl Xl 150 Mg Tab.Er.24h PO 150 mg DAILY [facility] Administration Docusate Sodium 100 mg 04/17/20 04:38 Docusate Sodium 100 Mg Capsule PO DAILY PRN Constipation Enoxaparin Sodium 40 mg 04/17/20 06:00 04/18/20 05:38 Enoxaparin Sodium 40 Mg/0.4 Ml Syringe SUBCUT 40 mg Q24H [facility] Administration Fluticasone/Vilanterol 1 puff 04/17/20 08:00 04/18/20 07:35 Fluticasone/Vilanterol 100/25 Blst.W.Dev INHALE 1 puff RDAILY [facility] Administration Hydroxyzine HCl 25 mg 04/17/20 09:00 04/18/20 07:52 Hydroxyzine Hcl 25 Mg Tablet PO 25 mg DAILY [facility] Administration Metronidazole 500 mg in 100 mls @ 100 mls/hr 04/17/20 06:00 04/18/20 07:21 Flagyl IV Infused Q8H [facility] Infusion Ceftriaxone Sodium 1 gm/ 50 mls @ 100 mls/hr 04/17/20 06:00 04/18/20 06:20 Sodium Chloride IV Infused Q24H [facility] Infusion Insulin Human Lispro 0 unit 04/17/20 07:30 04/18/20 07:31 Insulin Lispro 100 Unit/Ml 3 Ml Vial SUBCUT Not Given QIDACHS [facility] Protocol Lisinopril 10 mg 04/17/20 09:00 04/18/20 07:55 Lisinopril 10 Mg Tablet PO 10 mg DAILY [facility] Administration Protocol Morphine Sulfate 2 mg 04/17/20 04:38 04/18/20 08:11 Morphine Sulfate 2 Mg/Ml Cartridge IVPUSH 2 mg Q4H PRN Administration Pain, Severe (Pain Scale 7-10) Non-Formulary Medication 1 tab 04/17/20 09:00 Zafirlukast PO BID [facility] Non-Formulary Medication 1 tab 04/17/20 21:00 Levocetirizine PO BEDTIME [facility] Omeprazole 40 mg 04/17/20 06:30 04/18/20 05:38 Omeprazole 20 Mg Capsule.Dr PO 40 mg BID@0630,1630 [facility] Administration Ondansetron HCl 4 mg 04/17/20 04:38 04/18/20 06:18 Ondansetron Hcl 4 Mg/2 Ml Vial IVPUSH 4 mg Q8H PRN Administration Nausea and Vomiting Pregabalin 150 mg 04/17/20 09:00 04/18/20 07:53 Pregabalin 150 Mg Capsule PO 150 mg DAILY [facility] Administration Sodium Chloride 3 ml 04/17/20 08:00 04/18/20 08:11 0.9 % Sodium Chloride Flush 3 Ml Syringe IVFLUSH 3 ml QSHIFT [facility] Administration Sucralfate 1 gm 04/17/20 07:30 04/18/20 07:54 Sucralfate 1 Gm Tablet PO 1 gm TIDAC [facility] Administration Sumatriptan Succinate 100 mg 04/17/20 09:00 04/18/20 05:44 Sumatriptan Succinate 100 Mg Tablet PO 100 mg DAILY PRN Administration Migraine Headache Tiotropium [place] 1 puff 04/17/20 08:00 04/18/20 07:35 Tiotropium [place] 18 Mcg Cap.W.Dev INHALE 1 puff RDAILY [facility] Administration Tizanidine HCl 2 mg 04/17/20 09:00 04/18/20 07:51 Tizanidine Hcl 4 Mg Tablet PO 2 mg TID [facility] Administration Zolpidem Tartrate 5 mg 04/17/20 05:36 04/17/20 21:55 Zolpidem Tartrate 5 Mg Tablet PO 5 mg BEDTIME PRN Administration insomnia Labs CBC & Chem 7: 04/18/20 04:09 04/18/20 04:09 Microbiology Microbiology Results: Microbiology 04/16/20 20:08 Blood - Venous Blood Culture - Preliminary No growth after 24 hours. 04/16/20 20:07 Blood - Venous Blood Culture - Preliminary No growth after 24 hours. Assessment and Plan (1) Abdominal pain: Status: Acute (2) SIRS (systemic inflammatory response syndrome): Status: Acute (3) History of diverticulitis: Status: Acute Assessment and Plan: 59-year-old female who presents hospital with abdominal pain Left lower quadrant abdominal pain with inflammatory markers on labs No evidence of diverticulitis on CT scan GI appreciated - colitis vs undertreated diverticulitis vs gastroenteritis still no diarrhea for testing continue Empiric antibiotics will advance diet DM insulin HTN lisinipril
--- NOTE | 2020-04-18 10:56 | MHC.CM.PN ---
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
[2020-04-18 11:34] LABS: Glucose, Whole Blood 99 mg/dL (60-115)
--- NOTE | 2020-04-18 11:44 | MHC.CM.PN ---
PER PHYSICIAN ROUNDS, PATIENT NOT YET ABLE TO TOLERATE DIET. PLAN IS HOME NO SERVICES ONCE ABLE.
[2020-04-18] MEDS: Butalb/Acetamin/Caff 50/325/40 TABLET 1 TAB PO ×2 (12:29→19:27)
[2020-04-18 13:32] VITALS: RESP 18
[2020-04-18 15:14] VITALS: BP 94/57; PULSE 79; RESP 18; TEMP 37; O2SAT 93
[2020-04-18 16:25] LABS: Glucose, Whole Blood 179 mg/dL (60-115)
[2020-04-18] MEDS: Insulin Lispro 100 UNIT/ML 3 ML VIAL SUBCUT ×2 (17:28→20:35)
[2020-04-18] MEDS: Fluconazole 150 MG TABLET PO (19:21)
[2020-04-18 19:22] VITALS: BP 111/67; PULSE 94; RESP 19; TEMP 36.7; O2SAT 93
[2020-04-18 20:36] LABS: Glucose, Whole Blood 164 mg/dL (60-115)
[2020-04-18] MEDS: Zolpidem Tartrate 5 MG TABLET PO (21:57)
[2020-04-18 23:42] VITALS: BP 97/55; PULSE 81; RESP 19; TEMP 36.7; O2SAT 96
[2020-04-19 02:37] VITALS: BP 111/58; PULSE 80; RESP 19; TEMP 36.4; O2SAT 94
[2020-04-19] MEDS: Morphine Sulfate 2 MG/ML CARTRIDGE IVPUSH ×2 (02:45→08:03)
[2020-04-19] MEDS: Omeprazole 20 MG CAPSULE.DR 40 MG PO (05:43)
[2020-04-19] MEDS: Enoxaparin Sodium 40 MG/0.4 ML SYRINGE SUBCUT (05:43)
[2020-04-19] MEDS: cefTRIAXone sodium 1 GM in 0.9 % Sodium Chloride 50 ML IV (05:44)
[2020-04-19] MEDS: Butalb/Acetamin/Caff 50/325/40 TABLET 1 TAB PO (05:44)
[2020-04-19] MEDS: ondansetron HCL 4 MG/2 ML VIAL IVPUSH (05:49)
[2020-04-19] MEDS: metroNIDAZOLE/NS 500 MG/100 ML PIGGYBACK 100 MG IV (06:48)
[2020-04-19 07:13] VITALS: BP 102/61; PULSE 72; RESP 17; TEMP 36.8; O2SAT 94
[2020-04-19] MEDS: Fluticasone/Vilanterol 100/25 BLST.W.DEV 1 PUFF INHALE (07:37)
[2020-04-19 07:39] VITALS: PULSE 84; O2SAT 95
[2020-04-19] MEDS: Sucralfate 1 GM TABLET PO (08:01)
[2020-04-19] MEDS: Pregabalin 150 MG CAPSULE PO (08:01)
[2020-04-19] MEDS: Aspirin Enteric Coated 81 MG TABLET.DR PO (08:01)
[2020-04-19] MEDS: hydrOXYzine HCL 25 MG TABLET PO (08:02)
[2020-04-19] MEDS: buPROPion HCl XL 150 MG TAB.ER.24H PO (08:02)
[2020-04-19] MEDS: TiZANidine HCL 4 MG TABLET 2 MG PO (08:02)
[2020-04-19] MEDS: Atorvastatin Calcium 20 MG TABLET PO (08:02)
[2020-04-19 08:03] VITALS: BP 112/62; PULSE 71; RESP 16
[2020-04-19] MEDS: lisinopriL 10 MG TABLET PO (08:03)
[2020-04-19] MEDS: 0.9 % Sodium Chloride Flush 3 ML SYRINGE IVFLUSH (08:12)
[2020-04-19 08:15] LABS: Glucose, Whole Blood 126 mg/dL (60-115)
--- NOTE | 2020-04-19 09:42 | PM.DS ---
DS: Providers Provider Date of admission: 04/17/20 00:21 Primary care physician: Malika James MD Consults: 04/17/20 10:30 Consult to Gastroenterology Routine Consulting Provider: Oniel Agosto Reason for consultation: LLQ abdominal pain, CT negative, high WBC, platelets DS: Diagnosis Discharge Diagnosis (1) Abdominal pain: Status: Acute (2) SIRS (systemic inflammatory response syndrome): Status: Acute (3) History of diverticulitis: Status: Acute DS: Medications Discharge Medications Home Medications: Home Medications Medication Instructions Recorded Confirmed Jardiance 1 tab PO DAILY 04/17/20 04/17/20 Spiriva Respimat 2 puff INHALATION DAILY 04/17/20 04/17/20 aspirin 81 mg PO DAILY 04/17/20 04/17/20 atorvastatin 1 tab PO DAILY 04/17/20 04/17/20 budesonide-formoterol [Symbicort] 2 puff PO BID 04/17/20 04/17/20 bupropion HCl 1 tab PO QAM 04/17/20 04/17/20 bgidtxyvzv-awlpjrg-eoniceps 1 cap PO Q6H PRN 04/17/20 04/17/20 calcium carbonate-vitamin D3 1 tab PO BID 04/17/20 04/17/20 glimepiride See Rx Instructions .ROUTE .COMPLEX 04/17/20 04/17/20 hydroxyzine HCl 1 tab PO DAILY 04/17/20 04/17/20 levocetirizine 1 tab PO BEDTIME 04/17/20 04/17/20 lisinopril 1 tab PO DAILY 04/17/20 04/17/20 omeprazole 2 cap PO BID 04/17/20 04/17/20 ondansetron HCl 1 tab PO Q8H 04/17/20 04/17/20 pregabalin 1 cap PO DAILY 04/17/20 04/17/20 sucralfate 1 tab PO TID 04/17/20 04/17/20 sumatriptan succinate 100 mg PO DAILY 04/17/20 04/17/20 tizanidine 1 tab PO TID 04/17/20 04/17/20 zafirlukast 1 tab PO BID 04/17/20 04/17/20 zolpidem 1 tab PO BEDTIME PRN 04/17/20 04/17/20 buprenorphine 1 patch TRANSDERMAL Q7D 04/18/20 04/18/20 Previous Rx's Medication Instructions Recorded cefuroxime axetil 500 mg PO BID #14 tab 04/19/20 metronidazole [Flagyl] 500 mg PO BID #14 tab 04/19/20 DS: Summary Hospital Course Hospital Course: Patient was admitted for left lower quadrant abdominal pain and signs of inflammation. She was given ceftriaxone and Flagyl. Her abdominal pain improved and she was able to tolerate solid diet. She was seen by Gastroenterology felt differential could be incomplete the treated diverticulitis, versus colitis versus gastroenteritis. aS patient is doing much better she will be discharged home and will continue 1 more week of p.o. Ceftin and Flagyl and will follow up with GI as outpatient. Time Spent with Patient Time attestation: Total time spent providing and/or coordinating discharge services: Physical Exam Vital Signs: Vital Signs: Last Vital Signs Temp 98.2 F 04/19/20 07:13 Pulse 71 04/19/20 08:03 Resp 16 04/19/20 08:03 BP 112/62 04/19/20 08:03 Pulse Ox 94 04/19/20 07:13 Body Mass Index 32.9 General: AO X 3, no acute distress Resp: CTA bilateral CVS: S1,S2,RRR GI: soft, non tender, non distended Neuro: motor grossly intact Psych: appropriate affect DS: Data Data Completed and Pending Labs on day of discharge: 04/16/20 14:48 BMP [Basic Metabolic Panel] Stat Complete Blood Count Auto Diff Stat SLIDE REVIEW Stat 04/16/20 19:48 0.9 % Sodium Chloride [Ns] 1,000 ml IV 999 mls/hr levoFLOXacin/D5W [Levaquin] 750 mg in 150 ml IV ONCE metroNIDAZOLE/NS [Flagyl] 500 mg in 100 ml IV ONCE 04/16/20 19:51 0.9 % Sodium Chloride [Ns] 1,000 ml IV 999 mls/hr 04/16/20 19:52 CT abdomen pelvis w con Stat 0.9 % Sodium Chloride [Ns] 1,000 ml IV 999 mls/hr 04/16/20 20:07 Lactic Acid Stat 04/16/20 20:19 iohexoL 350 MG/ML [Omnipaque 350 MG/ML] 100 ml IV ONCE ONE 04/16/20 20:48 Morphine Sulfate 4 mg IVPUSH ONCE STA ondansetron HCL [Zofran] 4 mg IVPUSH ONCE STA 04/16/20 21:31 UA CC w/rflx Micro + Cult Stat 04/16/20 22:02 XR chest 1V Stat 04/16/20 22:30 ~Lactic Acid-LAB USE ONLY Stat 04/17/20 00:17 Transfer Order Routine 04/17/20 00:35 COVID-19 ID NOW ([facility]) Stat 04/17/20 06:07 cefTRIAXone sodium [Rocephin] 1 gm .ROUTE .STK-MED ONE 04/17/20 08:00 Tiotropium [place] [Spiriva] 1 puff INHALE RDAILY 04/17/20 08:08 Glucose, Whole Blood Routine 04/17/20 Breakfast NPO Diet 04/17/20 11:24 Glucose, Whole Blood Routine 04/17/20 16:47 Glucose, Whole Blood Routine 04/17/20 21:44 Glucose, Whole Blood Routine 04/18/20 04:09 Basic Metabolic Panel Routine Complete Blood Count Auto Diff Routine 04/18/20 05:34 cefTRIAXone sodium [Rocephin] 1 gm .ROUTE .STK-MED ONE 04/18/20 07:28 Glucose, Whole Blood Routine 04/18/20 11:19 Glucose, Whole Blood Routine 04/18/20 16:12 Glucose, Whole Blood Routine 04/18/20 17:43 Fluconazole [Diflucan] 150 mg PO ONCE ONE 04/18/20 20:20 Glucose, Whole Blood Routine 04/19/20 05:32 cefTRIAXone sodium [Rocephin] 1 gm .ROUTE .STK-MED ONE 04/19/20 07:10 Glucose, Whole Blood Routine Laboratory Last Values WBC 13.9 X10*3/uL (4.8-10.8) H 04/18/20 04:09 RBC 3.39 X10*6/uL (4.20-5.50) L D 04/18/20 04:09 Hgb 10.0 g/dl (12.0-16.0) L D 04/18/20 04:09 Hct 31.0 % (37-47) L D 04/18/20 04:09 MCV 91.4 fL (80-98) 04/18/20 04:09 MCH 29.5 pg (27.0-33.0) 04/18/20 04:09 MCHC 32.3 g/dl (31.0-35.0) 04/18/20 04:09 RDW 12.6 % (11.0-16.0) 04/18/20 04:09 Plt Count 239 X10*3/uL (160-400) D 04/18/20 04:09 MPV 10.8 fL (9.4-12.3) 04/18/20 04:09 Immature Gran % (Auto) 0.6 % (0.0-0.4) H 04/18/20 04:09 Neut % (Auto) 72.1 % (45-73) 04/18/20 04:09 Lymph % (Auto) 17.7 % (20-40) L 04/18/20 04:09 [place] % (Auto) 6.5 % (2-11) 04/18/20 04:09 Eos % (Auto) 2.9 % (0-4) 04/18/20 04:09 Baso % (Auto) 0.2 % (0-2) 04/18/20 04:09 Lymph # (Auto) 2.5 X10*3/uL (1.2-4.9) 04/18/20 04:09 [place] # (Auto) 0.9 X10*3/uL (0.1-1.2) 04/18/20 04:09 Eos # (Auto) 0.4 X10*3/uL (0.0-0.4) 04/18/20 04:09 Baso # (Auto) 0.0 X10*3/uL (0.0-0.2) 04/18/20 04:09 Abs Immat Gran (auto) 0.08 X10*3/uL (0.00-0.03) H 04/18/20 04:09 Absolute Neuts (auto) 10.0 X10*3/uL (2.0-8.3) H 04/18/20 04:09 Absolute Nucleated RBC 0.000 X10*3/uL (0.0-0.012) 04/18/20 04:09 Nucleated RBC % (auto) 0.0 /100WBC (0.0-0.2) 04/18/20 04:09 Smear Tech's Comments VERIFIED 04/16/20 14:48 Sodium 134 mmol/L (135-145) L 04/18/20 04:09 Potassium 3.8 mmol/l (3.3-5.1) 04/18/20 04:09 Chloride 105 mmol/L (96-108) 04/18/20 04:09 Carbon Dioxide 21 mmol/L (22-29) L 04/18/20 04:09 Anion Gap 12 (-) 04/18/20 04:09 BUN 15 mg/dL (9-16) 04/18/20 04:09 Creatinine 0.75 mg/dL (0.5-1.4) 04/18/20 04:09 Estim Creat Clear Calc 84.1 04/18/20 04:09 Estimated GFR > 60 04/18/20 04:09 POC Glucose 126 mg/dL (60-115) H 04/19/20 07:10 Random Glucose 84 mg/dL (60-115) D 04/18/20 04:09 Lactic Acid 2.1 mmol/L (0.5-2.0) H* 04/16/20 20:07 Lactic Acid Fup @ 2Hr 1.8 mmol/L (0.5-2.0) 04/16/20 22:30 Calcium 7.6 mg/dL (8.4-10.2) L D 04/18/20 04:09 Urine Color YELLOW 04/16/20 21:31 Urine Appearance CLEAR 04/16/20 21:31 Urine pH 5.5 (5.0-8.0) 04/16/20 21:31 Ur Specific [place] 1.025 (1.005-1.025) 04/16/20 21:31 Urine Protein NEG MG/DL (NEG-TRACE) 04/16/20 21:31 Urine Glucose (UA) 500 MG/DL (NEG) H 04/16/20 21:31 Urine Ketones 5 MG/DL (NEG) 04/16/20 21:31 Urine Blood NEG (NEG) 04/16/20 21:31 Urine Nitrite NEG (NEG) 04/16/20 21:31 Ur Leukocyte Esterase NEG (NEG) 04/16/20 21:31 COVID-19 ([facility]) Negative (Negative) 04/17/20 00:35 COVID-19 Clin Com See Note 04/17/20 00:35 Preliminary micro results at discharge 04/16/20 20:08 Blood Culture - Preliminary Blood - Venous No growth after 48 hours. 04/16/20 20:07 Blood Culture - Preliminary Blood - Venous No growth after 48 hours. Discharge Plan Discharge Patient Disposition: Home, Self-Care Referrals: Malika James MD [Primary Care Provider] - Discharge Medications: New cefuroxime axetil 500 mg tablet 500 mg PO BID Qty: 14 RF: 0 metronidazole [Flagyl] 500 mg tablet 500 mg PO BID Qty: 14 RF: 0 Continued atorvastatin 20 mg tablet 1 tab PO DAILY RF: 0 glimepiride 4 mg tablet See Rx Instructions .ROUTE .COMPLEX RF: 0 hydroxyzine HCl 25 mg tablet 1 tab PO DAILY RF: 0 zolpidem 5 mg tablet 1 tab PO BEDTIME PRN (Reason: insomnia) RF: 0 pregabalin 150 mg capsule 1 cap PO DAILY RF: 0 Jardiance 10 mg tablet 1 tab PO DAILY RF: 0 lisinopril 10 mg tablet 1 tab PO DAILY RF: 0 tizanidine 2 mg tablet 1 tab PO TID RF: 0 sumatriptan succinate 100 mg tablet 100 mg PO DAILY RF: 0 sucralfate 1 gram tablet 1 tab PO TID RF: 0 ondansetron HCl 4 mg tablet 1 tab PO Q8H RF: 0 ilwbsvhlci-ldudqhx-eteaohmy 50-325-40 mg capsule 1 cap PO Q6H PRN (Reason: Headache) RF: 0 zafirlukast 20 mg tablet 1 tab PO BID RF: 0 omeprazole 20 mg capsule,delayed release(DR/EC) 2 cap PO BID RF: 0 aspirin 81 mg Tablet 81 mg PO DAILY RF: 0 bupropion HCl 150 mg tablet extended release 24 hr 1 tab PO QAM RF: 0 calcium carbonate-vitamin D3 600 mg(1,500mg) -400 unit tablet 1 tab PO BID RF: 0 budesonide-formoterol [Symbicort] 80-4.5 mcg/actuation HFA aerosol inhaler 2 puff PO BID RF: 0 levocetirizine 5 mg tablet 1 tab PO BEDTIME RF: 0 Spiriva Respimat 2.5 mcg/actuation mist 2 puff inhalation DAILY RF: 0 buprenorphine 10 mcg/hour Patch Weekly 1 patch TRANSDERMAL Q7D RF: 0 Discharge Orders: Discharge Order (Routine); Ordered 04/19/20 Ordered By: Henok Celaya Activity on Discharge: As tolerated Visit Report Forms: Patient Portal Discharge page Care Plan Goals: recovery Health Concerns: pain Plan of Treatment: one week of antibiotics, follow up with gi
--- NOTE | 2020-04-19 09:59 | MHC.CM.PN ---
PT TO DC HOME NO SERVICES. PT TO SELF ARRANGE TRANSPORTATION
[2020-04-19] MEDS: SUMAtriptan succinate 100 MG TABLET PO (10:24)
== END 2020-04-19 11:10 | disposition home or self-care (01) | DRG 392 ==
LOC: HO.ED 04-17 00:56 → HO.IMC 04-17 03:23 → HO.S3 04-17 19:56
PROVIDERS: Physician Assistant; Admitting Provider Internal Medicine; Emergency Provider Internal Medicine; PCP Family Medicine; Visit Provider Internal Medicine
DX: K57.92 Diverticulitis of intestine, part unspecified, without perforation or abscess without bleeding (principal); R65.10 Systemic inflammatory response syndrome (SIRS) of non-infectious origin without acute organ dysfunction; F32.9 Major depressive disorder, single episode, unspecified; E11.9 Type 2 diabetes mellitus without complications; J45.909 Unspecified asthma, uncomplicated; G43.909 Migraine, unspecified, not intractable, without status migrainosus; Z20.828 Contact with and (suspected) exposure to other viral communicable diseases; Z88.0 Allergy status to penicillin; Z79.82 Long term (current) use of aspirin; Z79.899 Other long term (current) drug therapy
CPT/HCPCS: 36415; 71045; 74177; 80048; 81003; 82947; 83605; 85025; 87040; 87635; 96365; 96366; 96375; 99285; J0696; J1650; J1956; J2270; J2405; Q9967

== ENCOUNTER 2020-09-01 12:09 | Emergency (ER) | payer MEDICARE, MEDICAID, SELFPAY ==
--- NOTE | ~2020-09-01 | CT_ITS ---
EXAMINATION: CT ABDOMEN AND PELVIS WITH CONTRAST CLINICAL INFORMATION: Right-sided abdominal pain. History of diverticulitis. COMPARISON: 04/16/2020 CT abdomen. TECHNIQUE: Multidetector volumetric images were obtained from the superior aspect of the liver through the pubic symphysis following administration 85 mL of Omnipaque 350 intravenous contrast. Sagittal and coronal reformatted images were obtained on the technologist's workstation. Oral contrast: No This CT examination was performed using dose optimization techniques as appropriate, variously including the following: *Automated exposure control *Adjustment of mA and/or kV according to patient size (this includes techniques or standardized protocols for targeted exams where dose is matched to indication/reason for exam; i.e. extremities or head) *Use of iterative reconstruction technique DLP: 887 mGy-cm FINDINGS: LUNG BASES: Mild bibasilar atelectasis. LIVER, GALLBLADDER, AND BILIARY TREE: Liver measures 18.2 cm superior-inferior. Subtle small hypodense lesion in the caudate lobe, stable from previous. Gallbladder is not visualized, presumably surgically absent. No biliary duct dilatation seen. PANCREAS: Mildly atrophic. No acute inflammatory changes seen. SPLEEN: Unremarkable. ADRENAL GLANDS: Unremarkable. KIDNEYS AND URETERS: Mild right hydroureteronephrosis, new from previous. This probably is related to a 3 mm calculus in the distal right ureter in the region of the pelvis. Reference image 3:64, 5:68. No left renal calculi or hydronephrosis. BLADDER: Unremarkable. GASTROINTESTINAL TRACT: Redemonstrated is stable alignment in the lower central pelvis at the rectosigmoid junction. Surgical sutures in the small bowel in the right lower abdomen region. Stomach is nondistended. No dilated small-bowel loops. Moderate volume stool in the colon. Scattered colonic diverticuli. No findings to suggest diverticulitis. The cecum is in the pelvic region with the appendix in the left side of the pelvis, appearing unremarkable. No free fluid or free air. ABDOMINAL WALL: Redemonstrated is an umbilical hernia containing fat with mild stranding. Inferior to this, is a larger hernia which contains nonobstructed loops of small bowel. Similar findings were seen in the prior study. Small right-sided spigelian hernia, currently containing some fatty tissue. LYMPH NODES: No adenopathy seen. Normal caliber aorta. VASCULAR: Normal caliber aorta. PELVIC VISCERA: Unremarkable. OSSEOUS STRUCTURES: No evidence of acute osseous abnormality. CT/CT abdomen pelvis w con IMPRESSION: 1. Mild right hydroureteronephrosis, new from the prior study. This likely is related to a 3 mm calculus in the distal right ureter as detailed above. 2. Hepatomegaly. Stable small hypodense lesion in the caudate lobe. 3. Anterior abdominal wall hernias, similar to previous. The larger hernia contains nonobstructed small-bowel loops.
[2020-09-01 12:17] VITALS: BP 116/71; PULSE 101; RESP 16; TEMP 36.8; O2SAT 100; BMI 33.8
[2020-09-01 12:58] LABS: Basophils Absolute Auto 0.1 X10*3/uL (0.0-0.2); Basophils Percent Auto 0.3 % (0-2); Eosinophils Absolute Auto 0.5 X10*3/uL (0.0-0.4); Eosinophils Percent Auto 2.3 % (0-4); Hematocrit 40.2 % (37-47); Hemoglobin 12.8 g/dl (12.0-16.0); Imm Gran Abs Auto 0.08 X10*3/uL (0.00-0.03); Imm Gran Pct Auto 0.4 % (0.0-0.4); Lymphocytes Absolute Auto 3.1 X10*3/uL (1.2-4.9); Lymphocytes Percent Auto 15.1 % (20-40); MANUAL DIFF FLAG NO; Mean Corpuscular HGB Conc 31.8 g/dl (31.0-35.0); Mean Corpuscular Hemoglobin 27.8 pg (27.0-33.0); Mean Corpuscular Volume 87.4 fL (80-98); Mean Platelet Volume 10.3 fL (9.4-12.3); Monocytes Absolute Auto 1.1 X10*3/uL (0.1-1.2); Monocytes Percent Auto 5.6 % (2-11); Neutrophils Absolute Auto 15.5 X10*3/uL (2.0-8.3); Neutrophils Percent Auto 76.3 % (45-73); Platelet Count 345 X10*3/uL (160-400); Red Cell Distribution Width 13.8 % (11.0-16.0); White Blood Count 20.3 X10*3/uL (4.8-10.8)
--- NOTE | 2020-09-01 12:58 | ED.ABDPAIN ---
HPI - Abdominal Pain General Chief Complaint: Abdominal Pain Stated Complaint: Side Pain Time Seen by Provider: 09/01/20 12:38 Source: patient Mode of arrival: ambulatory Limitations: no limitations History of Present Illness HPI narrative: 59 yo female with a past medical history of diverticulitis status post partial resection, asthma, depression, diabetes, hypertension, migraines here with complaints of right-sided abdominal pain which has been going on for the last 2 weeks intermittently but this morning much more severe. Associated with nausea. No vomiting. No urinary symptoms, fevers, chills, diarrhea or constipation. Last BM yesterday and normal. Related Data Home Medications Medication Instructions Recorded Confirmed Jardiance 1 tab PO DAILY 04/17/20 04/17/20 Spiriva Respimat 2 puff INHALATION DAILY 04/17/20 04/17/20 aspirin 81 mg PO DAILY 04/17/20 04/17/20 atorvastatin 1 tab PO DAILY 04/17/20 04/17/20 budesonide-formoterol [Symbicort] 2 puff PO BID 04/17/20 04/17/20 bupropion HCl 1 tab PO QAM 04/17/20 04/17/20 zriklrmtpa-feumomp-dignsnvo 1 cap PO Q6H PRN 04/17/20 04/17/20 calcium carbonate-vitamin D3 1 tab PO BID 04/17/20 04/17/20 glimepiride See Rx Instructions .ROUTE .COMPLEX 04/17/20 04/17/20 hydroxyzine HCl 1 tab PO DAILY 04/17/20 04/17/20 levocetirizine 1 tab PO BEDTIME 04/17/20 04/17/20 lisinopril 1 tab PO DAILY 04/17/20 04/17/20 omeprazole 2 cap PO BID 04/17/20 04/17/20 ondansetron HCl 1 tab PO Q8H 04/17/20 04/17/20 pregabalin 1 cap PO DAILY 04/17/20 04/17/20 sucralfate 1 tab PO TID 04/17/20 04/17/20 sumatriptan succinate 100 mg PO DAILY 04/17/20 04/17/20 tizanidine 1 tab PO TID 04/17/20 04/17/20 zafirlukast 1 tab PO BID 04/17/20 04/17/20 zolpidem 1 tab PO BEDTIME PRN 04/17/20 04/17/20 buprenorphine 1 patch TRANSDERMAL Q7D 04/18/20 04/18/20 Previous Rx's Medication Instructions Recorded cefuroxime axetil 500 mg PO BID #14 tab 04/19/20 metronidazole [Flagyl] 500 mg PO BID #14 tab 04/19/20 ibuprofen 600 mg PO Q8H PRN #20 tab 09/01/20 oxycodone 5 mg PO Q6H PRN #5 tab 09/01/20 tamsulosin [Flomax] 0.4 mg PO DAILY #20 cap 09/01/20 Allergies Allergy/AdvReac Type Severity Reaction Status Date / Time Penicillins [PENICILLINS] Allergy Severe RASH Verified 04/17/20 05:30 gabapentin [GABAPENTIN] Allergy Mild ABD PAIN Verified 04/17/20 05:30 esomeprazole [Nexium] Allergy Unknown rash Verified 10/24/13 00:00 famotidine [From PEPCID] Allergy Unknown UPSET Verified 04/17/20 05:30 STOMACH lansoprazole [Prevacid] Allergy Unknown rash Verified 10/24/13 00:00 penicillin V Allergy Unknown stomach Verified 10/24/13 00:00 pains From NEXIUM Allergy Unknown RASH Uncoded 01/12/20 14:52 Review of Systems Review of Systems Yes all other systems are reviewed and are negative Constitutional: Reports no additional constitutional complaints, Denies body ache(s), Denies chills, Denies fever(s), Denies headache(s) and Denies weakness Eyes: Reports no additional eye complaints and Denies change in vision Reports system reviewed and no additional complaints, except as documented, Denies dizziness, Denies headache(s), Denies nasal congestion, Denies nasal discharge and Denies neck pain Cardiovascular: Reports no additional cardiovascular complaints, Denies chest pain, Denies leg edema and Denies dyspnea Respiratory: Reports no additional respiratory complaints, Denies cough and Denies dyspnea Gastrointestinal: Reports no additional gastrointestinal complaints, Reports abdominal pain, Denies diarrhea, Reports nausea and Denies vomiting Genitourinary: Reports no additional female genitourinary complaints and Denies urinary incontinence Musculoskeletal: Reports no additional musculoskeletal complaints, Denies back pain, Denies arthralgias, Denies joint swelling, Denies neck pain, Denies numbness and Denies tingling Skin/Breast: Reports system reviewed and no additional complaints, except as docu and Denies rash Reports system reviewed and no additional complaints, except as documented, Denies Abnormal speech present, Denies dizziness, Denies headache(s), Denies numbness, Denies tingling and Denies weakness Physical Exam Vital Signs: Vital Signs: Last Vital Signs Temp 98.6 F 09/01/20 15:40 Pulse 92 09/01/20 15:40 Resp 16 09/01/20 15:40 BP 113/58 L 09/01/20 15:40 Pulse Ox 96 09/01/20 15:40 Body Mass Index 33.8 Const: General: cooperative, healthy appearing, comfortable and no acute distress Orientation/consciousness: patient oriented x3 Limitations: no limitations HENMT: Head: Yes normal to inspection Ears: hearing grossly normal bilaterally General nose exam: Normal external nose present Face and sinus: Yes normal facial exam Mouth: Normal oral and palatal mucosa present Throat: Yes posterior oropharynx normal Eyes: General: appearance normal, both eyes and all related structures Pupils: Equal, round and reactive pupils present Neck: Neck: Yes normal visual inspection Chest: Chest palpation & inspection: normal inspection of the chest Resp: Effort & Inspection: normal respiratory effort Auscultation: clear to auscultation bilaterally Cardio: Rate: regular rate Rhythm: regular rhythm Peripheral pulses: Peripheral pulses 2+ throughout GI: Inspection: Yes normal to inspection Palpation (GI): Soft to palpation and Tenderness to palpation present (GI) (Moderate tenderness to the right lower quadrant with some guarding. No kristina) with no rebound tenderness Auscultation: normal bowel sounds Back/Spine/Pelvis: Thoracic/Lumbar Spine: thoracic and lumbar spine normal to inspection Skin: General skin exam: no rashes or lesions noted Neuro: General: patient oriented x3, no focal motor deficits and normal sensation to monofilament Cranial nerves: Yes Equal, round and reactive pupils present Cognition (Neuro): normal cognition Speech: No Abnormal speech present Gait exam (Neuro): Normal gait present Motor exam (neuro): 5/5 motor strength present throughout Extrem: General: Yes normal to inspection Course Course Course Narrative: 59 yo female here with right sided abdominal pain intermittent x 2 weeks now more focal, severe and persistent in right lower quadrant since this morning with associated with nausea. No vomiting or other associated symptoms. On exam has some tenderness with no rebound, +guarding. Will need labs, UA, CT A/P. Will provide analgesia, antiemetic and re-assess. 1750-CT shows a right 3 mm stone with mild right hydroureteronephrosis. UA shows no signs of infection. Renal function is stable. Patient has a leukocytosis which is likely reactive and not from infection. Patient required an additional dose of analgesia will plan to reassess, PO trial prior to dc 1745-pain is improved. Tolerating p.o.. Will discharge home with urology follow-up Reviewed worrisome signs and symptoms when to return to the emergency department. Comfortable discharge home. MDM - Abdominal Pain MDM Narrative Medical decision making narrative: Appendicitis, diverticulitis, small-bowel obstruction Medical Records Attestation: I reviewed the patient's medical records. Lab Data Attestation: I reviewed the patient's lab results. Result diagrams: 09/01/20 12:53 09/01/20 12:53 Labs: Lab Results 09/01/20 09/01/20 09/01/20 Range/Units 12:53 12:53 12:53 WBC 20.3 H (4.8-10.8) X10*3/uL RBC 4.60 D (4.20-5.50) X10*6/uL Hgb 12.8 D (12.0-16.0) g/dl Hct 40.2 D (37-47) % MCV 87.4 (80-98) fL MCH 27.8 (27.0-33.0) pg MCHC 31.8 (31.0-35.0) g/dl RDW 13.8 (11.0-16.0) % Plt Count 345 D (160-400) X10*3/uL MPV 10.3 (9.4-12.3) fL Immature Gran % (Auto) 0.4 (0.0-0.4) % Neut % (Auto) 76.3 H (45-73) % Lymph % (Auto) 15.1 L (20-40) % [place] % (Auto) 5.6 (2-11) % Eos % (Auto) 2.3 (0-4) % Baso % (Auto) 0.3 (0-2) % Lymph # (Auto) 3.1 (1.2-4.9) X10*3/uL [place] # (Auto) 1.1 (0.1-1.2) X10*3/uL Eos # (Auto) 0.5 H (0.0-0.4) X10*3/uL Baso # (Auto) 0.1 (0.0-0.2) X10*3/uL Abs Immat Gran (auto) 0.08 H (0.00-0.03) X10*3/uL Absolute Neuts (auto) 15.5 H (2.0-8.3) X10*3/uL Absolute Nucleated RBC 0.000 (0.0-0.012) X10*3/uL Nucleated RBC % (auto) 0.0 (0.0-0.2) /100WBC PT 12.6 (10.8-13.0) SEC INR 1.1 (0.9-1.1) Sodium 138 (135-145) mmol/L Potassium 4.5 (3.3-5.1) mmol/L Chloride 104 (96-108) mmol/L Carbon Dioxide 24 (22-29) mmol/L Anion Gap 15 (12-20) BUN 23 H D (9-16) mg/dL Creatinine 1.05 (0.5-1.4) mg/dL Estim Creat Clear Calc 58.7 Estimated GFR 54 Random Glucose 124 H D (60-115) mg/dL Calcium 9.6 D (8.4-10.2) mg/dL Magnesium 2.3 (1.6-2.6) mg/dL Total Bilirubin 0.2 (0.0-1.0) mg/dL Direct Bilirubin < 0.2 (0.0-0.5) mg/dL AST 12 (5-31) U/L ALT 20 (0-31) U/L Alkaline Phosphatase 116 (39-117) U/L Total Protein 7.5 (6.5-8.0) g/dL Albumin 4.2 (3.5-5.0) g/dL Lipase 15 (8-78) U/L Urine Color Urine Appearance Urine pH (5.0-8.0) Ur Specific Mcdonald (1.005-1.025) Urine Protein (NEG-TRACE) MG/DL Urine Glucose (UA) (NEG) MG/DL Urine Ketones (NEG) MG/DL Urine Blood (NEG) Urine Nitrite (NEG) Ur Leukocyte Esterase (NEG) Urine RBC (0) /HPF Urine WBC (0-4) /HPF Ur Squamous Epith Cells /LPF Urine Bacteria /LPF 09/01/20 Range/Units 12:53 WBC (4.8-10.8) X10*3/uL RBC (4.20-5.50) X10*6/uL Hgb (12.0-16.0) g/dl Hct (37-47) % MCV (80-98) fL MCH (27.0-33.0) pg MCHC (31.0-35.0) g/dl RDW (11.0-16.0) % Plt Count (160-400) X10*3/uL MPV (9.4-12.3) fL Immature Gran % (Auto) (0.0-0.4) % Neut % (Auto) (45-73) % Lymph % (Auto) (20-40) % [place] % (Auto) (2-11) % Eos % (Auto) (0-4) % Baso % (Auto) (0-2) % Lymph # (Auto) (1.2-4.9) X10*3/uL [place] # (Auto) (0.1-1.2) X10*3/uL Eos # (Auto) (0.0-0.4) X10*3/uL Baso # (Auto) (0.0-0.2) X10*3/uL Abs Immat Gran (auto) (0.00-0.03) X10*3/uL Absolute Neuts (auto) (2.0-8.3) X10*3/uL Absolute Nucleated RBC (0.0-0.012) X10*3/uL Nucleated RBC % (auto) (0.0-0.2) /100WBC PT (10.8-13.0) SEC INR (0.9-1.1) Sodium (135-145) mmol/L Potassium (3.3-5.1) mmol/L Chloride (96-108) mmol/L Carbon Dioxide (22-29) mmol/L Anion Gap (12-20) BUN (9-16) mg/dL Creatinine (0.5-1.4) mg/dL Estim Creat Clear Calc Estimated GFR Random Glucose (60-115) mg/dL Calcium (8.4-10.2) mg/dL Magnesium (1.6-2.6) mg/dL Total Bilirubin (0.0-1.0) mg/dL Direct Bilirubin (0.0-0.5) mg/dL AST (5-31) U/L ALT (0-31) U/L Alkaline Phosphatase (39-117) U/L Total Protein (6.5-8.0) g/dL Albumin (3.5-5.0) g/dL Lipase (8-78) U/L Urine Color YELLOW Urine Appearance CLEAR Urine pH 6.0 (5.0-8.0) Ur Specific Mcdonald 1.015 (1.005-1.025) Urine Protein NEG (NEG-TRACE) MG/DL Urine Glucose (UA) >=1000 H (NEG) MG/DL Urine Ketones NEG (NEG) MG/DL Urine Blood 3+ H (NEG) Urine Nitrite NEG (NEG) Ur Leukocyte Esterase NEG (NEG) Urine RBC 50-75 H (0) /HPF Urine WBC 0 (0-4) /HPF Ur Squamous Epith Cells TRACE /LPF Urine Bacteria NONE /LPF Imaging Data CT scan - abdomen: Attestation: I personally reviewed and interpreted this imaging study as follows: Radiologist's impression: 1. Mild right hydroureteronephrosis, new from the prior study. This likely is related to a 3 mm calculus in the distal right ureter as detailed above. 2. Hepatomegaly. Stable small hypodense lesion in the caudate lobe. 3. Anterior abdominal wall hernias, similar to previous. The larger hernia contains nonobstructed small-bowel loops. Discharge Plan Discharge Clinical Impression: Calculus of kidney Patient Disposition: Home, Self-Care Instructions: Renal Colic (ED) Additional Instructions: Increase fluids, rest Follow-up with urology Prescriptions: New tamsulosin [Flomax] 0.4 mg capsule 0.4 mg PO DAILY Qty: 20 RF: 0 ibuprofen 600 mg tablet 600 mg PO Q8H PRN (Reason: fever or pain) Qty: 20 RF: 0 oxycodone 5 mg tablet 5 mg PO Q6H PRN (Reason: pain) Qty: 5 RF: 0 No Action atorvastatin 20 mg tablet 1 tab PO DAILY RF: 0 glimepiride 4 mg tablet See Rx Instructions .ROUTE .COMPLEX RF: 0 hydroxyzine HCl 25 mg tablet 1 tab PO DAILY RF: 0 zolpidem 5 mg tablet 1 tab PO BEDTIME PRN (Reason: insomnia) RF: 0 pregabalin 150 mg capsule 1 cap PO DAILY RF: 0 Jardiance 10 mg tablet 1 tab PO DAILY RF: 0 lisinopril 10 mg tablet 1 tab PO DAILY RF: 0 tizanidine 2 mg tablet 1 tab PO TID RF: 0 sumatriptan succinate 100 mg tablet 100 mg PO DAILY RF: 0 sucralfate 1 gram tablet 1 tab PO TID RF: 0 ondansetron HCl 4 mg tablet 1 tab PO Q8H RF: 0 rlnprdbeyp-nvafwmy-tatbfggw 50-325-40 mg capsule 1 cap PO Q6H PRN (Reason: Headache) RF: 0 zafirlukast 20 mg tablet 1 tab PO BID RF: 0 omeprazole 20 mg capsule,delayed release(DR/EC) 2 cap PO BID RF: 0 aspirin 81 mg Tablet 81 mg PO DAILY RF: 0 bupropion HCl 150 mg tablet extended release 24 hr 1 tab PO QAM RF: 0 calcium carbonate-vitamin D3 600 mg(1,500mg) -400 unit tablet 1 tab PO BID RF: 0 budesonide-formoterol [Symbicort] 80-4.5 mcg/actuation HFA aerosol inhaler 2 puff PO BID RF: 0 levocetirizine 5 mg tablet 1 tab PO BEDTIME RF: 0 Spiriva Respimat 2.5 mcg/actuation mist 2 puff inhalation DAILY RF: 0 buprenorphine 10 mcg/hour Patch Weekly 1 patch TRANSDERMAL Q7D RF: 0 cefuroxime axetil 500 mg tablet 500 mg PO BID Qty: 14 RF: 0 metronidazole [Flagyl] 500 mg tablet 500 mg PO BID Qty: 14 RF: 0 Referrals: Sorin Lang MD [Physician] - 2 days [facility] [place] Past Medical History Attestation statement: The following information was validated with the patient. Source: old records reviewed and nursing notes reviewed Medical History Asthma Depression Diabetes 1.5, managed as type 2 Diverticulitis HTN (hypertension) Migraines Surgical History History of cholecystectomy Social History Social History Household Members: Significant Other Housing: Apartment Alcohol intake: never Smoking Status: Never smoker Smoked in Last 30 Days: No Use of substances other than those prescribed or required for medical reasons: No Advance Directives: No Advance Directives Information Provided: Yes Patient : No service: No
[2020-09-01 12:59] LABS: Glucose Urine UA >=1000 MG/DL (NEG); Leukocyte Esterase Urine NEG (NEG); Nitrite Urine NEG (NEG); Specific Gravity - Urine 1.015 (1.005-1.025); Urine Blood 3+ (NEG); Urine Ketones NEG (NEG); Urine Protein NEG (NEG-TRACE)
[2020-09-01 13:02] LABS: Appearance Urine CLEAR; Color Urine YELLOW
[2020-09-01 13:05] LABS: INTERNATIONAL NORM RATIO 1.1 (0.9-1.1); Prothrombin Time 12.6 SEC (10.8-13.0)
[2020-09-01] MEDS: ondansetron HCL 4 MG/2 ML VIAL IVPUSH (13:05)
[2020-09-01] MEDS: HYDROmorphone HCl 0.5 MG/0.5 ML SYRINGE IVPUSH (13:05)
[2020-09-01 13:13] LABS: WBC Urine 0 /HPF (0-4)
[2020-09-01 13:14] LABS: RBC Urine 50-75 /HPF (0); Squamous Epithelial Cell Urine TRACE /LPF
[2020-09-01 13:22] LABS: Alanine Aminotransferase 20 U/L (0-31); Albumin Level 4.2 g/dL (3.5-5.0); Alkaline Phosphatase 116 U/L (39-117); Anion Gap 15 (12-20); Aspartate Amino Transferase 12 U/L (5-31); Bilirubin Direct < 0.2 mg/dL (0.0-0.5); Bilirubin Total 0.2 mg/dL (0.0-1.0); Blood Urea Nitrogen 23 mg/dL (9-16); Calcium 9.6 mg/dL (8.4-10.2); Carbon Dioxide 24 mmol/L (22-29); Chloride 104 mmol/L (96-108); Creatinine Clr Calc Pharmacy 58.7; Estimated Glomerular Filt Rate 54; Glucose Random 124 mg/dL (60-115); Lipase 15 U/L (8-78); Magnesium 2.3 mg/dL (1.6-2.6); Potassium 4.5 mmol/L (3.3-5.1); Sodium 138 mmol/L (135-145); Total Protein 7.5 g/dL (6.5-8.0)
[2020-09-01 13:54] VITALS: BP 130/77
[2020-09-01] MEDS: iohexoL 350 MG/ML 100 ML INFUS..BTL IV (15:08)
[2020-09-01 15:40] VITALS: BP 113/58; PULSE 92; RESP 16; TEMP 37; O2SAT 96
[2020-09-01] MEDS: Ketorolac Tromethamine 30 MG/ML VIAL IVPUSH (16:51)
[2020-09-01] MEDS: Tamsulosin HCL 0.4 MG CAPSULE PO (16:51)
== END 2020-09-01 18:07 | disposition home or self-care (01) ==
PROVIDERS: Nurse Practitioner Family; Emergency Provider Emergency Medicine; PCP Family Medicine
DX: N13.2 Hydronephrosis with renal and ureteral calculous obstruction (principal); E11.9 Type 2 diabetes mellitus without complications; I10 Essential (primary) hypertension; Z87.19 Personal history of other diseases of the digestive system
CPT/HCPCS: 36415; 74177; 80048; 80076; 81001; 81003; 83690; 83735; 85025; 85610; 96374; 96375; 99284; J1170; J1885; J2405; Q9967

== ENCOUNTER → 2020-09-28 08:53 | Outpatient (BNVA) | payer MEDICARE, MEDICAID, SELFPAY | PROVIDERS: PCP Family Medicine; Visit Provider Urology | DX: N20.0 Calculus of kidney (principal) | CPT/HCPCS: 99202 ==

== ENCOUNTER 2020-10-01 18:08 | Day surgery (SDC) | payer MEDICARE, MEDICAID, SELFPAY ==
[2020-10-01] VITALS (11 sets, daily range): BP systolic 104–134; BP diastolic 54–66; PULSE 73–87; RESP 15–20; TEMP 36.2–36.7; O2SAT 93–99; BMI 32.4
--- NOTE | ~2020-10-01 | FL_ITS ---
EXAMINATION: XR FLUOROSCOPY WITH IMAGES CLINICAL INFORMATION: Right hydronephrosis COMPARISON: CT abdomen and pelvis 09/01/2020. TECHNIQUE: Fluoroscopy performed by Dr. Rickey Rowell. Fluoroscopy time: 35.8 second DAP: 14.51 mGycm2 Images: 1 FL/FL guidance in OR FINDINGS/IMPRESSION: Fluoroscopy was provided to Dr. Rickey Rowell for retrograde pyelogram. No images were obtained.
--- NOTE | 2020-10-01 17:56 | MHC.SHP ---
Pre-Procedural Eval Section A The patient is an INPATIENT: No Changes since office visit: No Cold of Flu in the past 2 weeks, No New Medical Problems, No Changes in Medication and No Patient answered all questions The History & Physical has been completed within 30 days and I have reviewed it.: Yes Section B Chief Complaint: calculus of kidney Allergies: Allergies Allergy/AdvReac Type Severity Reaction Status Date / Time Penicillins [PENICILLINS] Allergy Severe RASH Verified 09/28/20 08:58 gabapentin [GABAPENTIN] Allergy Mild ABD PAIN Verified 09/28/20 08:58 esomeprazole [Nexium] Allergy Unknown rash Verified 09/28/20 08:58 famotidine [From PEPCID] Allergy Unknown UPSET Verified 09/28/20 08:58 STOMACH lansoprazole [Prevacid] Allergy Unknown rash Verified 09/28/20 08:58 penicillin V Allergy Unknown stomach Verified 09/28/20 08:58 pains From NEXIUM Allergy Unknown RASH Uncoded 01/12/20 14:52 Plan Diagnosis/Plan: Unchanged ( cystoscopy, right retrograde, right ureteroscopy, laser, stent) I have reviewed the history and physical and performed a pertinent physical examination on my patient. No changes have occurred unless specified.
--- NOTE | 2020-10-01 18:11 | P.CONAN_ITS ---
[facility] Active Problems Active Problems: All Active Problems (Updated 09/28/20 @ 09:16 by Sorin hay MD) Abdominal pain (Acute) SIRS (systemic inflammatory response syndrome) (Acute) History of diverticulitis (Acute) Nephrolithiasis (Acute) Diabetes 1.5, managed as type 2 (Acute) Past Medical History Medical History Asthma Depression Diabetes 1.5, managed as type 2 Diverticulitis HTN (hypertension) Migraines Surgical History Surgical History (Updated 10/01/20 @ 17:58 by Nelly Diez, RN) History of cholecystectomy History of hysterectomy History of partial colectomy Social History Social History Household Members: Significant Other Housing: Apartment Do you presently have visiting nurse or other home services: No Alcohol intake: never Patient Tobacco Use Status: Never used Tobacco Second Hand Smoke Exposure: No Use of substances other than those prescribed or required for medical reasons: No Are you DNR?: No Advance Directives: Yes Advance Directives Information Provided: Yes Advance Directives on File: Yes (OBTAINED FROM PATIENT) Advance Directives Date on File: 10/01/20 Recently lost weight without trying: No Nutrition Risks: No Nutritional Risk Patient : No service: No Meds Allergies Allergy/AdvReac Type Severity Reaction Status Date / Time Penicillins [PENICILLINS] Allergy Severe RASH Verified 09/28/20 08:58 gabapentin [GABAPENTIN] Allergy Mild ABD PAIN Verified 09/28/20 08:58 esomeprazole [Nexium] Allergy Unknown rash Verified 09/28/20 08:58 famotidine [From PEPCID] Allergy Unknown UPSET Verified 09/28/20 08:58 STOMACH lansoprazole [Prevacid] Allergy Unknown rash Verified 09/28/20 08:58 penicillin V Allergy Unknown stomach Verified 09/28/20 08:58 pains From NEXIUM Allergy Unknown RASH Uncoded 01/12/20 14:52 Home Medications Medication Instructions Recorded Confirmed Last Taken Type Jardiance 1 tab PO DAILY 04/17/20 04/17/20 04/16/20 History Spiriva Respimat 2 puff INHALATION DAILY 04/17/20 04/17/20 04/15/20 History aspirin 81 mg PO DAILY 12/04/17/20 04/15/20 History atorvastatin 1 tab PO DAILY 04/17/20 04/17/20 04/15/20 History budesonide-formoterol [Symbicort] 2 puff PO BID 04/17/20 04/17/20 04/15/20 History bupropion HCl 1 tab PO QAM 04/17/20 04/17/20 04/15/20 History cjzgburvfv-naqmdfe-lyxxtnui 1 cap PO Q6H PRN 04/17/20 04/17/20 04/15/20 History calcium carbonate-vitamin D3 1 tab PO BID 04/17/20 04/17/20 04/15/20 History glimepiride See Rx Instructions .ROUTE .COMPLEX 04/17/20 04/17/20 04/16/20 History hydroxyzine HCl 1 tab PO DAILY 04/17/20 04/17/20 04/16/20 History levocetirizine 1 tab PO BEDTIME 04/17/20 04/17/20 04/15/20 History lisinopril 1 tab PO DAILY 04/17/20 04/17/20 04/15/20 History omeprazole 2 cap PO BID 04/17/20 04/17/20 04/15/20 History ondansetron HCl 1 tab PO Q8H 04/17/20 04/17/20 04/15/20 History pregabalin 1 cap PO DAILY 04/17/20 04/17/20 04/16/20 History sucralfate 1 tab PO TID 04/17/20 04/17/20 04/15/20 History sumatriptan succinate 100 mg PO DAILY 04/17/20 04/17/20 04/15/20 History tizanidine 1 tab PO TID 04/17/20 04/17/20 04/15/20 History zafirlukast 1 tab PO BID 04/17/20 04/17/20 04/15/20 History zolpidem 1 tab PO BEDTIME PRN 04/17/20 04/17/20 Unknown History buprenorphine 1 patch TRANSDERMAL Q7D 04/18/20 04/18/20 04/12/20 13:00 History blood sugar diagnostic #10 ea 09/28/20 Unknown History budesonide 180 mcg/actuation 1 inh PO BID 09/28/20 Unknown History breath activated powder inhaler buspirone 15 mg tablet 15 mg PO DAILY 09/28/20 Unknown History fluticasone propionate 50 spray INTRANASAL 09/28/20 Unknown History mcg/actuation nasal spray,suspension galcanezumab-gnlm 120 mg/mL 240 mg SUBCUT 09/28/20 Unknown History subcutaneous pen injector hydralazine 25 mg tablet 25 mg PO BEDTIME 09/28/20 Unknown History lancets 28 gauge #100 ea 09/28/20 Unknown History lisinopril 2.5 mg tablet 2.5 mg PO DAILY 09/28/20 Unknown History nystatin 100,000 unit/gram topical 1 appl TOPICAL BID-TID 09/28/20 Unknown History powder Exam Exam Date and Time: October 01, 20201810 Height,Weight and Vital Signs: Height 5 ft 3 in Weight 83.007 kg Last Vital Signs Temp 97.8 F 10/01/20 17:42 Pulse 87 10/01/20 17:42 Resp 20 10/01/20 17:42 BP 104/66 10/01/20 17:42 Pulse Ox 95 10/01/20 17:42 Airway Mallampati Class: II TM Dist: >3cm Neck ROM: Full Partial: Upper and Lower Heart: RRR Lungs: CTA Assessment and Plan Assessment Anesthesia Assessment: Anesthesia Plan Discussed and Chart Reviewed Final Anesthetic Review NPO: Yes ASA Class: III Final Preanesthetic Review: No Changes in Pt Med Stat, Meds/Allgs Chart Review ed, Consent Obtained/Reviewed and Anes Risks/Benef Reviewed Patient Risk: Intermediate Procedure Risk: Low Anesthetic Plan Anesthetic Plan: GA Disposition: Standard PACU
[2020-10-01] MEDS: levoFLOXacin 500 MG TABLET PO (18:14)
--- NOTE | 2020-10-01 19:50 | P.OP_ITS ---
Operative Note Operative Note Date of Service: 10/01/20 Narrative: PreOperative Diagnosis: distal right ureteric stone Post Operative Diagnosis: inflamed distal right ureter Procedure: - right cystoscopy, retrograde - dilatation of ureteric orifice under fluoroscopy - right ureteroscopy - stent placement Surgeon: Dr Sorin Lang Anesthesia: General Indications for procedure: Pati is a recurrent stone former. She presented through the emergency room last week with a CT scan that showed distal right 3 mm stone. She had symptoms. Recommendation was for intervention with ureteroscopy. Procedure: After informed consent was verified patient was brought to the operating placed in supine position. Anesthesia was administered per protocol. Patient was placed in modified dorsal lithotomy position and prepped and draped in a sterile fashion. Safety pause time-out and side of surgery confirmed. Antibiotics confirmed. A 22 Mauritian cystoscope was placed per urethra. No abnormality noted of the urethra or the bladder. Both ureteric orifices in normal position. Right ureteric orifice was cannulated and retrograde examination was performed. No filling defect was seen. Sensor guidewire was placed up to the level of the renal pelvis and the cystoscope was removed. The bladder was emptied. A rigid ureteral scope was then advanced alongside the wire. This was advanced up level to the anterior superior iliac spine level. No stone was noted within the ureter. Mild irritation was seen at the distal portion of the ureter consistent with stone passage. Due to ongoing symptoms a decision was made to place a stent. A 6 Mauritian by 22 cm stent was placed without difficulty and good coil was seen within the bladder and the kidney region. The patient tolerated the procedure well was extubated in operating room and transferred in stable condition to the recovery area Pathology: none Six Mauritian by 22 cm stent Drains:
[2020-10-01] MEDS: fentaNYL citrate/PF 100 MCG/2 ML VIAL 25 MCG IVPUSH (20:46)
[2020-10-01] MEDS: oxyCODONE HCl Immed Release 5 MG TABLET PO (21:05)
[2020-10-01] MEDS: Acetaminophen 325 MG TABLET 650 MG PO (21:05)
[2020-10-01] MEDS: Phenazopyridine HCL 100 MG TABLET PO (21:23)
--- NOTE | 2020-10-01 21:37 | PC.NURSE ---
[id number] Lang regarding history of tramadol making her nauseated and having abdominal pain. stated he would call in a different script.
[2020-10-02 07:30] LABS: Glucose, Whole Blood 85 mg/dL (60-115)
== END 2020-10-01 21:30 | disposition home or self-care (01) ==
PROVIDERS: PCP Family Medicine; Visit Provider Urology
PROC: (CPT 52351; principal; 2020-10-01 15:10)
DX: N20.1 Calculus of ureter (principal); Z87.442 Personal history of urinary calculi; I10 Essential (primary) hypertension; J45.909 Unspecified asthma, uncomplicated; E13.9 Other specified diabetes mellitus without complications; Z79.84 Long term (current) use of oral hypoglycemic drugs; Z79.82 Long term (current) use of aspirin; Z79.51 Long term (current) use of inhaled steroids; Z90.49 Acquired absence of other specified parts of digestive tract
CPT/HCPCS: 52351; 52332; 82947; C1758; C1769; C2617; J2405; J2550; J3010; Q9967

== ENCOUNTER → 2020-10-09 12:42 | Outpatient (BNVA) | payer MEDICARE, MEDICAID, SELFPAY | PROVIDERS: PCP Family Medicine; Visit Provider Urology | DX: N20.0 Calculus of kidney (principal) | CPT/HCPCS: 52310; 99212 ==

== ENCOUNTER 2020-11-07 13:15 | Inpatient (IN) | payer MEDICARE, MEDICAID, SELFPAY ==
[2020-11-07] VITALS (7 sets, daily range): BP systolic 94–148; BP diastolic 45–77; PULSE 61–91; RESP 16–18; TEMP 36.6–37.1; O2SAT 95–98; BMI 32.8
--- NOTE | ~2020-11-07 | CT_ITS ---
EXAMINATION: CT ABDOMEN AND PELVIS WITHOUT CONTRAST CLINICAL INFORMATION: Lower abdominal pain. Rule out diverticulitis. COMPARISON: Previous CT of the abdomen and pelvis August 2020 TECHNIQUE: Multidetector volumetric imaging was performed from the superior aspect of the liver through the pubic symphysis. Sagittal and coronal reformatted images were obtained on the technologist's workstation. This CT examination was performed using dose optimization techniques as appropriate, variously including the following: *Automated exposure control *Adjustment of mA and/or kV according to patient size (this includes techniques or standardized protocols for targeted exams where dose is matched to indication/reason for exam; i.e. extremities or head) *Use of iterative reconstruction technique DLP: 612 mGy-cm FINDINGS: LUNG BASES: The visualized lung bases are unremarkable. LIVER, GALLBLADDER, AND BILIARY TREE: The liver is normal in size, shape, and attenuation. No focal hepatic lesion or biliary ductal dilatation is present. The gallbladder is unremarkable with no evidence of radiopaque gallstones, gallbladder wall thickening, or obvious pericholecystic inflammatory changes. PANCREAS: Unremarkable. SPLEEN: Unremarkable. ADRENAL GLANDS: Unremarkable. KIDNEYS AND URETERS: There is a small 2 mm nonobstructing stone in the left kidney. The kidneys are otherwise unremarkable. BLADDER: Not optimally distended.. GASTROINTESTINAL TRACT: There are postsurgical changes with anastomotic staple line seen in the distal sigmoid colon or upper rectum. There is a surgical staple line seen in small bowel loops in the right lower quadrant. There is diverticulosis of the colon. There is mild wall thickening of the distal left and proximal sigmoid colon and mild stranding of the surrounding fat suggestive of mild diverticulitis. There is a low midline ventral hernia containing small bowel. The cecum is low in the pelvis. Small and large bowel is otherwise unremarkable. The appendix is unremarkable. ABDOMINAL WALL: There are multiple abdominal wall hernias. There is a small midline ventral hernia containing fat that is 10 cm above the umbilicus. There are multiple umbilical and periumbilical hernias containing fat. There is a larger lower abdominal wall hernia containing small bowel and fat. This is 5 cm inferior to the umbilicus. There is a right lateral abdominal wall hernia or spigelian hernia containing small bowel. LYMPH NODES: Normal. VASCULAR: Unremarkable. PELVIC VISCERA: The uterus appears to have been removed. No pelvic mass is seen. OSSEOUS STRUCTURES: Unremarkable. CT/CT abdomen pelvis wo con IMPRESSION: Mild diverticulitis of the distal left/proximal sigmoid colon. Multiple abdominal wall hernias including large lower midline abdominal wall hernia containing small bowel and fat and right lateral abdominal wall or spigelian hernia containing small bowel and fat.. No evidence of obstruction. Small left renal stone.
--- NOTE | ~2020-11-07 | XR_ITS ---
EXAMINATION: XR CHEST CLINICAL INFORMATION: Hypoxia COMPARISON: 04/16/2020 TECHNIQUE: Frontal view of the chest was obtained. FINDINGS: Normal symmetric lung volumes. No parenchymal consolidation. No pleural effusion. No pneumothorax. Cardiomediastinal silhouette and pulmonary vascularity are within normal limits. No acute osseous abnormalities. XR/XR chest 1V IMPRESSION: No acute findings
--- NOTE | 2020-11-07 15:23 | ED_ITS ---
HPI - Abdominal Pain General Chief Complaint: Abdominal Pain Stated Complaint: abd pain Time Seen by Provider: 11/07/20 15:17 Source: patient Mode of arrival: ambulatory Limitations: no limitations History of Present Illness HPI narrative: 60-year-old female came in for evaluation of abdominal pain. 60-year-old female started to have abdominal pain 2 days ago, pain is localized to lower abdomen, no radiation, no aggravating factor, no relieving factors, pain is associated with nausea but no vomiting, no urinary frequency or dysuria, no abnormal bowel movement. Patient had similar episode of abdominal pain in the past and patient was diagnosed with diverticulitis and kidney stones in the past. Related Data Home Medications Medication Instructions Recorded Confirmed Jardiance 1 tab PO DAILY 04/17/20 10/01/20 Spiriva Respimat 2 puff INHALATION DAILY 04/17/20 04/17/20 aspirin 81 mg PO DAILY 04/17/20 10/01/20 atorvastatin 1 tab PO DAILY 04/17/20 10/01/20 budesonide-formoterol [Symbicort] 2 puff PO BID 04/17/20 10/01/20 bupropion HCl 1 tab PO QAM 04/17/20 10/01/20 fngceztwax-umvoubo-dssgvqun 1 cap PO Q6H PRN 04/17/20 04/17/20 calcium carbonate-vitamin D3 1 tab PO BID 04/17/20 10/01/20 glimepiride See Rx Instructions .ROUTE .COMPLEX 04/17/20 04/17/20 hydroxyzine HCl 1 tab PO DAILY 04/17/20 04/17/20 levocetirizine 1 tab PO BEDTIME 04/17/20 10/01/20 lisinopril 1 tab PO DAILY 04/17/20 10/01/20 omeprazole 2 cap PO BID 04/17/20 04/17/20 ondansetron HCl 1 tab PO Q8H 04/17/20 04/17/20 pregabalin 1 cap PO DAILY 04/17/20 04/17/20 sucralfate 1 tab PO TID 04/17/20 04/17/20 sumatriptan succinate 100 mg PO DAILY 04/17/20 04/17/20 tizanidine 1 tab PO TID 04/17/20 04/17/20 zafirlukast 1 tab PO BID 04/17/20 04/17/20 zolpidem 1 tab PO BEDTIME PRN 04/17/20 04/17/20 buprenorphine 1 patch TRANSDERMAL Q7D 04/18/20 04/18/20 blood sugar diagnostic #10 ea 09/28/20 budesonide 180 mcg/actuation 1 inh PO BID 09/28/20 10/01/20 breath activated powder inhaler buspirone 15 mg tablet 15 mg PO DAILY 09/28/20 fluticasone propionate 50 spray INTRANASAL 09/28/20 mcg/actuation nasal spray,suspension galcanezumab-gnlm 120 mg/mL 240 mg SUBCUT 09/28/20 subcutaneous pen injector hydralazine 25 mg tablet 25 mg PO BEDTIME 09/28/20 lancets 28 gauge #100 ea 09/28/20 lisinopril 2.5 mg tablet 2.5 mg PO DAILY 09/28/20 nystatin 100,000 unit/gram topical 1 appl TOPICAL BID-TID 09/28/20 powder albuterol sulfate 90 mcg/actuation 2 puff INHALATION Q4H PRN 10/09/20 aerosol inhaler Previous Rx's Medication Instructions Recorded cefuroxime axetil 500 mg PO BID #14 tab 04/19/20 metronidazole [Flagyl] 500 mg PO BID #14 tab 04/19/20 ibuprofen 600 mg PO Q8H PRN #20 tab 09/01/20 oxycodone 5 mg PO Q6H PRN #5 tab 09/01/20 tamsulosin [Flomax] 0.4 mg PO DAILY #20 cap 09/01/20 phenazopyridine [Pyridium] 100 mg PO TID PRN 4 Days #12 tab 10/01/20 tamsulosin 0.4 mg PO BEDTIME 14 Days #14 cap 10/01/20 tramadol 50 mg PO Q6H PRN #14 tab 10/01/20 oxycodone-acetaminophen 5 mg-325 1 tab PO Q8H PRN #10 tab 10/02/20 mg tablet pyridoxine (vitamin B6) 100 mg 100 mg PO DAILY 90 Days #90 tab 10/09/20 tablet Allergies Allergy/AdvReac Type Severity Reaction Status Date / Time Penicillins [PENICILLINS] Allergy Severe RASH Verified 10/09/20 13:08 gabapentin [GABAPENTIN] Allergy Mild ABD PAIN Verified 10/09/20 13:08 esomeprazole [Nexium] Allergy Unknown rash Verified 10/09/20 13:08 famotidine [From PEPCID] Allergy Unknown UPSET Verified 10/09/20 13:08 STOMACH lansoprazole [Prevacid] Allergy Unknown rash Verified 10/09/20 13:08 penicillin V Allergy Unknown stomach Verified 10/09/20 13:08 pains From NEXIUM Allergy Unknown RASH Uncoded 01/12/20 14:52 Review of Systems Review of Systems All other systems are reviewed and are negative Constitutional: Reports as per HPI and Reports no additional constitutional complaints Eyes: Reports as per HPI and Reports no additional eye complaints Reports system reviewed and no additional complaints, except as documented Cardiovascular: Reports as per HPI and Reports no additional cardiovascular complaints Respiratory: Reports as per HPI and Reports no additional respiratory complaints Gastrointestinal: Reports as per HPI and Reports no additional gastrointestinal complaints Genitourinary: Reports no additional female genitourinary complaints Musculoskeletal: Reports no additional musculoskeletal complaints Skin/Breast: Reports system reviewed and no additional complaints, except as docu Psychiatric: Reports no additional psychiatric complaints Endocrine: Reports no additional endocrine complaints Hematologic/Lymphatic: Reports no additional hematologic/lymphatic complaints Allergic/Immunologic: Reports no additional allergic/immunologic complaints Reports system reviewed and no additional complaints, except as documented and Reports Abnormal speech present Physical Exam Vital Signs: Vital Signs: Last Vital Signs Temp 98.7 F 11/07/20 15:52 Pulse 78 11/07/20 15:52 Resp 18 11/07/20 15:52 BP 119/77 11/07/20 15:52 Pulse Ox 96 11/07/20 15:52 Body Mass Index 32.8 Vital signs have been reviewed as appeared to be correct. Blood pressure normal. Heart rate normal. Respiration rate normal. Temperature normal. Oxygen saturation normal. Appearance: Alert. Oriented X3. No acute distress. Head: Normal external exam. Normocephalic. Atraumatic. No Jesus signs noted. No raccoon eyes noted Eyes: PERRLA. EOMI. Conjunctiva and sclera normal. Eyelids normal. ENT: TM's Normal. Pharynx normal. Uvula midline. Moist mucous membranes. No trismus noted. No drooling noted. No muffled voice noted. Neck: Normal inspection. Neck supple. FROM. No adenopathy. Thyroid Normal. No meningeal signs. No neck mass noted. CVS: Normal heart rate and rhythm. Heart sound normal. No murmurs noted. Pulses normal throughout. Respiratory: No respiratory distress. Painless inspiration. Breath sounds normal. No wheezes/rales/rhonchi noted. Chest nontender. No accessory muscle usage noted or decreased air movement noted. Abdomen: Soft, mild suprapubic tenderness, no guarding, no rebound. Bowel sounds normal in all 4 quadrants. No distention noted. No organomegaly noted. No visible injury noted. Back: No CVA tenderness. Full range of motion noted. Skin: Skin warm and dry. Normal skin color. Normal skin turgor. No rashes/lesions/lacerations noted. Extremities: No lower extremity edema. Extremities exhibit normal range of motion. Extremities nontender. Neuro: Oriented X 3. No motor deficit. No sensory deficit. Reflexes normal. Course Course Course Narrative: Assessment and plan. 60 year female came in with abdominal pain, leukocytosis, nausea. Past history diverticulosis require colectomy in the past. Will start the patient on antibiotic/keeping p.o./IV fluids/admit. MDM - Abdominal Pain Lab Data Result diagrams: 11/07/20 16:05 11/07/20 16:03 Labs: Lab Results 11/07/20 11/07/20 11/07/20 Range/Units 16:03 16:03 16:03 WBC (4.8-10.8) X10*3/uL RBC (4.20-5.50) X10*6/uL Hgb (12.0-16.0) g/dl Hct (37-47) % MCV (80-98) fL MCH (27.0-33.0) pg MCHC (31.0-35.0) g/dl RDW (11.0-16.0) % Plt Count (160-400) X10*3/uL MPV (9.4-12.3) fL Immature Gran % (Auto) (0.0-0.4) % Neut % (Auto) (45-73) % Lymph % (Auto) (20-40) % Grant % (Auto) (2-11) % Eos % (Auto) (0-4) % Baso % (Auto) (0-2) % Lymph # (Auto) (1.2-4.9) X10*3/uL Grant # (Auto) (0.1-1.2) X10*3/uL Eos # (Auto) (0.0-0.4) X10*3/uL Baso # (Auto) (0.0-0.2) X10*3/uL Abs Immat Gran (auto) (0.00-0.03) X10*3/uL Absolute Neuts (auto) (2.0-8.3) X10*3/uL Absolute Nucleated RBC (0.0-0.012) X10*3/uL Nucleated RBC % (auto) (0.0-0.2) /100WBC Sodium 143 (135-145) mmol/L Potassium 4.5 (3.3-5.1) mmol/L Chloride 108 (96-108) mmol/L Carbon Dioxide 24 (22-29) mmol/L Anion Gap 16 (12-20) BUN 15 (9-16) mg/dL Creatinine 1.01 (0.5-1.4) mg/dL Estim Creat Clear Calc 61.5 Estimated GFR 56 Random Glucose 81 (60-115) mg/dL Calcium 10.2 D (8.4-10.2) mg/dL Total Bilirubin 0.4 (0.0-1.0) mg/dL Direct Bilirubin 0.2 (0.0-0.5) mg/dL AST 9 (5-31) U/L ALT 12 (0-31) U/L Alkaline Phosphatase 126 H (39-117) U/L Total Protein 7.7 (6.5-8.0) g/dL Albumin 4.2 (3.5-5.0) g/dL Lipase 13 (8-78) U/L Urine Color YELLOW Urine Appearance CLEAR Urine pH 6.0 (5.0-8.0) Ur Specific [place] <= 1.005 (1.005-1.025) Urine Protein NEG (NEG-TRACE) MG/DL Urine Glucose (UA) >=1000 H (NEG) MG/DL Urine Ketones NEG (NEG) MG/DL Urine Blood NEG (NEG) Urine Nitrite NEG (NEG) Ur Leukocyte Esterase NEG (NEG) Urine RBC 0 (0) /HPF Urine WBC 0 (0-4) /HPF Ur Squamous Epith Cells 2+ /LPF Talc Crystals TRACE /LPF Urine Bacteria 1+ /LPF Urine Yeast TRACE /HPF Urine Test NEGATIVE (NEGATIVE) 11/07/20 Range/Units 16:05 WBC 19.0 H (4.8-10.8) X10*3/uL RBC 4.62 (4.20-5.50) X10*6/uL Hgb 12.1 (12.0-16.0) g/dl Hct 38.9 (37-47) % MCV 84.2 (80-98) fL MCH 26.2 L (27.0-33.0) pg MCHC 31.1 (31.0-35.0) g/dl RDW 15.5 (11.0-16.0) % Plt Count 369 (160-400) X10*3/uL MPV 10.3 (9.4-12.3) fL Immature Gran % (Auto) 0.4 (0.0-0.4) % Neut % (Auto) 71.6 (45-73) % Lymph % (Auto) 20.2 (20-40) % Grant % (Auto) 5.5 (2-11) % Eos % (Auto) 1.9 (0-4) % Baso % (Auto) 0.4 (0-2) % Lymph # (Auto) 3.8 (1.2-4.9) X10*3/uL Grant # (Auto) 1.0 (0.1-1.2) X10*3/uL Eos # (Auto) 0.4 (0.0-0.4) X10*3/uL Baso # (Auto) 0.1 (0.0-0.2) X10*3/uL Abs Immat Gran (auto) 0.08 H (0.00-0.03) X10*3/uL Absolute Neuts (auto) 13.6 H (2.0-8.3) X10*3/uL Absolute Nucleated RBC 0.000 (0.0-0.012) X10*3/uL Nucleated RBC % (auto) 0.0 (0.0-0.2) /100WBC Sodium (135-145) mmol/L Potassium (3.3-5.1) mmol/L Chloride (96-108) mmol/L Carbon Dioxide (22-29) mmol/L Anion Gap (12-20) BUN (9-16) mg/dL Creatinine (0.5-1.4) mg/dL Estim Creat Clear Calc Estimated GFR Random Glucose (60-115) mg/dL Calcium (8.4-10.2) mg/dL Total Bilirubin (0.0-1.0) mg/dL Direct Bilirubin (0.0-0.5) mg/dL AST (5-31) U/L ALT (0-31) U/L Alkaline Phosphatase (39-117) U/L Total Protein (6.5-8.0) g/dL Albumin (3.5-5.0) g/dL Lipase (8-78) U/L Urine Color Urine Appearance Urine pH (5.0-8.0) Ur Specific [place] (1.005-1.025) Urine Protein (NEG-TRACE) MG/DL Urine Glucose (UA) (NEG) MG/DL Urine Ketones (NEG) MG/DL Urine Blood (NEG) Urine Nitrite (NEG) Ur Leukocyte Esterase (NEG) Urine RBC (0) /HPF Urine WBC (0-4) /HPF Ur Squamous Epith Cells /LPF Talc Crystals /LPF Urine Bacteria /LPF Urine Yeast /HPF Urine Test (NEGATIVE) Imaging Data CT scan - abdomen: Radiologist's impression: Mild diverticulitis of the distal left/proximal sigmoid colon. Multiple abdominal wall hernias including large lower midline abdominal wall hernia containing small bowel and fat and right lateral abdominal wall or spigelian hernia containing small bowel and fat.. No evidence of obstruction. Small left renal stone. Discharge Plan Discharge Clinical Impression: Abdominal pain, Diverticulitis Patient Disposition: Admitted As Inpatient Prescriptions: No Action oxycodone-acetaminophen [Percocet] 5-325 mg tablet 1 tab PO Q8H PRN (Reason: pain) Qty: 10 RF: 0 phenazopyridine [Pyridium] 100 mg tablet 100 mg PO TID PRN (Reason: spasm ) 4 Days Qty: 12 RF: 0 tramadol 50 mg tablet 50 mg PO Q6H PRN (Reason: pain (scale score 4-6)) Qty: 14 RF: 0 tamsulosin 0.4 mg capsule 0.4 mg PO BEDTIME 14 Days Qty: 14 RF: 0 atorvastatin 20 mg tablet 1 tab PO DAILY RF: 0 glimepiride 4 mg tablet See Rx Instructions .ROUTE .COMPLEX RF: 0 hydroxyzine HCl 25 mg tablet 1 tab PO DAILY RF: 0 zolpidem 5 mg tablet 1 tab PO BEDTIME PRN (Reason: insomnia) RF: 0 pregabalin 150 mg capsule 1 cap PO DAILY RF: 0 Jardiance 10 mg tablet 1 tab PO DAILY RF: 0 lisinopril 10 mg tablet 1 tab PO DAILY RF: 0 tizanidine 2 mg tablet 1 tab PO TID RF: 0 sumatriptan succinate 100 mg tablet 100 mg PO DAILY RF: 0 sucralfate 1 gram tablet 1 tab PO TID RF: 0 ondansetron HCl 4 mg tablet 1 tab PO Q8H RF: 0 qquyrquoff-uevmcoc-lndpmadx 50-325-40 mg capsule 1 cap PO Q6H PRN (Reason: Headache) RF: 0 zafirlukast 20 mg tablet 1 tab PO BID RF: 0 omeprazole 20 mg capsule,delayed release(DR/EC) 2 cap PO BID RF: 0 aspirin 81 mg Tablet 81 mg PO DAILY RF: 0 bupropion HCl 150 mg tablet extended release 24 hr 1 tab PO QAM RF: 0 calcium carbonate-vitamin D3 600 mg(1,500mg) -400 unit tablet 1 tab PO BID RF: 0 budesonide-formoterol [Symbicort] 80-4.5 mcg/actuation HFA aerosol inhaler 2 puff PO BID RF: 0 levocetirizine 5 mg tablet 1 tab PO BEDTIME RF: 0 Spiriva Respimat 2.5 mcg/actuation mist 2 puff inhalation DAILY RF: 0 buprenorphine 10 mcg/hour Patch Weekly 1 patch TRANSDERMAL Q7D RF: 0 cefuroxime axetil 500 mg tablet 500 mg PO BID Qty: 14 RF: 0 metronidazole [Flagyl] 500 mg tablet 500 mg PO BID Qty: 14 RF: 0 tamsulosin [Flomax] 0.4 mg capsule 0.4 mg PO DAILY Qty: 20 RF: 0 ibuprofen 600 mg tablet 600 mg PO Q8H PRN (Reason: fever or pain) Qty: 20 RF: 0 oxycodone 5 mg tablet 5 mg PO Q6H PRN (Reason: pain) Qty: 5 RF: 0 pyridoxine (vitamin B6) 100 mg tablet 100 mg PO DAILY 90 Days Qty: 90 RF: 1 PMFSH Past Medical History Medical History Asthma Depression Diabetes 1.5, managed as type 2 Diverticulitis HTN (hypertension) Migraines Surgical History History of cholecystectomy History of hysterectomy History of partial colectomy Social History Social History Household Members: Significant Other Housing: Apartment Do you presently have visiting nurse or other home services: No Alcohol intake: never Patient Tobacco Use Status: Never used Tobacco Second Hand Smoke Exposure: No Advance Directives: Yes Advance Directives on File: Yes Advance Directives Date on File: 10/01/20 Patient : No service: No
[2020-11-07 16:10] LABS: MANUAL DIFF FLAG NO
[2020-11-07] MEDS: Morphine Sulfate 2 MG/ML CARTRIDGE 1 MG IVPUSH (16:10)
[2020-11-07] MEDS: ondansetron HCL 4 MG/2 ML VIAL IVPUSH (16:10)
[2020-11-07] MEDS: 0.9 % Sodium Chloride 1,000 ML 999 ML IVCONT (16:10)
[2020-11-07 16:16] LABS: Basophils Absolute Auto 0.1 X10*3/uL (0.0-0.2); Basophils Percent Auto 0.4 % (0-2); Eosinophils Absolute Auto 0.4 X10*3/uL (0.0-0.4); Eosinophils Percent Auto 1.9 % (0-4); Hematocrit 38.9 % (37-47); Hemoglobin 12.1 g/dl (12.0-16.0); Imm Gran Abs Auto 0.08 X10*3/uL (0.00-0.03); Imm Gran Pct Auto 0.4 % (0.0-0.4); Lymphocytes Absolute Auto 3.8 X10*3/uL (1.2-4.9); Lymphocytes Percent Auto 20.2 % (20-40); Mean Corpuscular HGB Conc 31.1 g/dl (31.0-35.0); Mean Corpuscular Hemoglobin 26.2 pg (27.0-33.0); Mean Corpuscular Volume 84.2 fL (80-98); Mean Platelet Volume 10.3 fL (9.4-12.3); Monocytes Percent Auto 5.5 % (2-11); Neutrophils Absolute Auto 13.6 X10*3/uL (2.0-8.3); Neutrophils Percent Auto 71.6 % (45-73); Platelet Count 369 X10*3/uL (160-400); Red Blood Count 4.62 X10*6/uL (4.20-5.50); Red Cell Distribution Width 15.5 % (11.0-16.0)
[2020-11-07 16:19] LABS: Glucose Urine UA >=1000 MG/DL (NEG); Leukocyte Esterase Urine NEG (NEG); Nitrite Urine NEG (NEG); Specific Gravity - Urine <= 1.005 (1.005-1.025); Urine Blood NEG (NEG); Urine Ketones NEG (NEG); Urine Protein NEG (NEG-TRACE)
[2020-11-07 16:20] LABS: Appearance Urine CLEAR; Color Urine YELLOW
[2020-11-07 16:22] LABS: UPreg QC Valid YES; Urine Pregnancy NEGATIVE (NEGATIVE)
[2020-11-07 16:35] LABS: RBC Urine 0 /HPF (0); Squamous Epithelial Cell Urine 2+ /LPF; WBC Urine 0 /HPF (0-4)
[2020-11-07 16:36] LABS: Bacteria Urine 1+ /LPF; Urine Talc Crystals TRACE /LPF
[2020-11-07 16:41] LABS: Alanine Aminotransferase 12 U/L (0-31); Albumin Level 4.2 g/dL (3.5-5.0); Alkaline Phosphatase 126 U/L (39-117); Anion Gap 16 (12-20); Aspartate Amino Transferase 9 U/L (5-31); Bilirubin Direct 0.2 mg/dL (0.0-0.5); Bilirubin Total 0.4 mg/dL (0.0-1.0); Blood Urea Nitrogen 15 mg/dL (9-16); Calcium 10.2 mg/dL (8.4-10.2); Carbon Dioxide 24 mmol/L (22-29); Chloride 108 mmol/L (96-108); Creatinine Clr Calc Pharmacy 61.5; Estimated Glomerular Filt Rate 56; Glucose Random 81 mg/dL (60-115); Lipase 13 U/L (8-78); Potassium 4.5 mmol/L (3.3-5.1); Sodium 143 mmol/L (135-145); Total Protein 7.7 g/dL (6.5-8.0)
[2020-11-07] MEDS: metroNIDAZOLE 500 MG TABLET PO (17:09)
[2020-11-07] MEDS: levoFLOXacin/D5W 750 MG/150 ML PIGGYBACK 100 MG IV (17:09)
[2020-11-07 17:22] LABS: COVID-19 Test Negative (Negative)
[2020-11-07 17:23] LABS: Lactic Acid 1.2 mmol/L (0.5-2.0)
[2020-11-07] MEDS: Morphine Sulfate 2 MG/ML CARTRIDGE IVPUSH (17:41)
--- NOTE | 2020-11-07 17:44 | P.HPHOSP_ITS ---
History of Present Illness Date of Service: 11/07/20 Chief Complaint: abd pain 60yo F with DM2, asthma, nephrolithiasis, and 3 prior episodes of diverticulitis, presenting with 2d of bilateral lower quadrant abdominal pain, non-radiating, associated with nausea. 1 episode of watery diarrhea at onset, no blood present. No fever/chills. No urinary symptoms. No high-risk food or travel exposures. States the pain is similar to her prior episodes of diverticulitis. In 2010, she had sigmoid diverticulitis with abscess formation and subsequently underwent a laparoscopic sigmoid resection with ileostomy, which was subsequently closed. She had another 2 bouts of diverticulitis in 2018 and in 2019 that was managed medically with antibiotic treatment. She had a colonoscopy 3-4 years ago in [place] that she says showed diverticulosis and polyps. She is reportedly due for another colonoscopy in January at [facility]. In the ED, she met sepsis criteria by virtue of tachyardia and leukocytosis and was given levofloxacin and metronidazole due to penicillin allergy. Review of Systems Review of Systems: Yes all other systems are reviewed and are negative [facility] Medical History (Updated 11/07/20 @ 17:52 by Veronika Penn MD) Asthma Chronic back pain Depression Diabetes 1.5, managed as type 2 Diverticulitis HTN (hypertension) Migraines Pertinent family history: no FHx of colon CA Surgical History History of cholecystectomy History of hysterectomy History of partial colectomy Social History Household Members: Significant Other Housing: Apartment Do you presently have visiting nurse or other home services: No Alcohol intake: never Patient Tobacco Use Status: Never used Tobacco Second Hand Smoke Exposure: No Advance Directives: Yes Advance Directives on File: Yes Advance Directives Date on File: 10/01/20 Patient : No service: No Meds Allergies Allergy/AdvReac Type Severity Reaction Status Date / Time Penicillins [PENICILLINS] Allergy Severe RASH Verified 10/09/20 13:08 gabapentin [GABAPENTIN] Allergy Mild ABD PAIN Verified 10/09/20 13:08 esomeprazole [Nexium] Allergy Unknown rash Verified 10/09/20 13:08 famotidine [From PEPCID] Allergy Unknown UPSET Verified 10/09/20 13:08 STOMACH lansoprazole [Prevacid] Allergy Unknown rash Verified 10/09/20 13:08 penicillin V Allergy Unknown stomach Verified 10/09/20 13:08 pains From NEXIUM Allergy Unknown RASH Uncoded 01/12/20 14:52 Active Medications: Current Medications Generic Name Dose Route Start Last Admin Trade Name Freq PRN Reason Stop Dose Admin Levofloxacin 750 mg in 150 mls @ 100 mls/hr 11/07/20 17:45 Levaquin IV Q24H [facility] Metronidazole 500 mg in 100 mls @ 100 mls/hr 11/07/20 17:45 Flagyl IV Q8H [facility] Pharmacy Consult 1 each 11/07/20 17:18 Consult Rx Perform Med Rec MISCELLANE ONCE PRN Consult order Pharmacy Consult 1 each 11/07/20 17:41 Consult Rx Perform Med Rec MISCELLANE 11/07/20 17:42 STAT STA Home Medications Medication Instructions Recorded Confirmed Last Taken Type Jardiance 1 tab PO DAILY 04/17/20 11/07/20 09/30/20 History Spiriva Respimat 2 puff INHALATION DAILY 04/17/20 04/17/20 04/15/20 History aspirin 81 mg PO DAILY 04/17/20 11/07/20 11/07/20 History atorvastatin 1 tab PO DAILY 04/17/20 11/07/20 11/07/20 History budesonide-formoterol [Symbicort] 2 puff PO BID 04/17/20 11/07/20 11/07/20 History bupropion HCl 1 tab PO QAM 04/17/20 11/07/20 11/07/20 History calcium carbonate-vitamin D3 1 tab PO BID 04/17/20 11/07/20 11/07/20 History glimepiride See Rx Instructions .ROUTE .COMPLEX 04/17/20 11/07/20 04/16/20 History hydroxyzine HCl 1 tab PO DAILY 04/17/20 04/17/20 04/16/20 History levocetirizine 1 tab PO BEDTIME 04/17/20 11/07/20 09/30/20 History omeprazole 2 cap PO BID 04/17/20 04/17/20 04/15/20 History ondansetron HCl 1 tab PO Q8H 04/17/20 11/07/2004/15/20 History pregabalin 1 cap PO DAILY 04/17/20 11/07/20 04/16/20 History sucralfate 1 tab PO TID 04/17/20 11/07/20 04/15/20 History sumatriptan succinate 100 mg PO DAILY 04/17/20 11/07/20 04/15/20 History tizanidine 1 tab PO TID 04/17/20 11/07/20 04/15/20 History blood sugar diagnostic #10 ea 09/28/20 Unknown History budesonide 180 mcg/actuation 1 inh PO BID 09/28/20 11/07/20 11/07/20 History breath activated powder inhaler buspirone 15 mg tablet 15 mg PO DAILY 09/28/20 Unknown History lancets 28 gauge #100 ea 09/28/20 Unknown History lisinopril 2.5 mg tablet 2.5 mg PO DAILY 09/28/20 11/07/20 09/30/20 History nystatin 100,000 unit/gram topical 1 appl TOPICAL BID-TID 09/28/20 11/07/20 Unknown History powder albuterol sulfate 90 mcg/actuation 2 puff INHALATION Q4H PRN 10/09/20 11/07/20 11/07/20 History aerosol inhaler galcanezumab-gnlm [Emgality Pen] 120 mg SUBCUT Q4W 11/07/20 11/07/20 10/27/20 History glimepiride 2 mg PO BID@1400,2100 11/07/20 11/07/20 11/07/20 History glipizide 1 tab PO DAILY 11/07/20 11/07/20 Unknown History zileuton 2 tab PO BID 11/07/20 11/07/20 Unknown History Physical Exam Vital Signs and Narrative: Vital Signs: Last Vital Signs Temp 98.7 F 11/07/20 15:52 Pulse 78 11/07/20 15:52 Resp 18 11/07/20 15:52 BP 119/77 11/07/20 15:52 Pulse Ox 96 11/07/20 15:52 Body Mass Index 32.8 Gen: in no acute distress HEENT: sclera anicteric, moist mucus membranes Neck: supple Lungs: clear to auscultation bilaterally Heart: regular rate and rhythm, no murmurs Abd: soft, mildly tender bilateral lower quadrants Ext: no edema Skin: warm/well-perfused Neuro: alert and oriented x3, no focal findings Psych: appropriate affect Results Labs CBC and Chem 7: 11/07/20 16:05 11/07/20 16:03 Labs: Laboratory Results - last 24 hr 11/07/20 11/07/20 11/07/20 16:03 16:03 16:03 MCV MCH MCHC RDW Plt Count MPV Immature Gran % (Auto) Neut % (Auto) Lymph % (Auto) [place] % (Auto) Eos % (Auto) Baso % (Auto) Lymph # (Auto) [place] # (Auto) Eos # (Auto) Baso # (Auto) Abs Immat Gran (auto) Absolute Neuts (auto) Absolute Nucleated RBC Nucleated RBC % (auto) Anion Gap 16 Estim Creat Clear Calc 61.5 Estimated GFR 56 Random Glucose 81 Lactic Acid Calcium 10.2 D Total Bilirubin 0.4 Direct Bilirubin 0.2 AST 9 ALT 12 Alkaline Phosphatase 126 H Total Protein 7.7 Albumin 4.2 Lipase 13 Urine Color YELLOW Urine Appearance CLEAR Urine pH 6.0 Ur Specific [place] <= 1.005 Urine Protein NEG Urine Glucose (UA) >=1000 H Urine Ketones NEG Urine Blood NEG Urine Nitrite NEG Ur Leukocyte Esterase NEG Urine RBC 0 Urine WBC 0 Ur Squamous Epith Cells 2+ [place] Crystals TRACE Urine Bacteria 1+ Urine Yeast TRACE Urine Test NEGATIVE COVID-19 ([facility]) COVID-19 Clin Com 11/07/20 11/07/20 11/07/20 16:05 16:57 16:57 MCV 84.2 MCH 26.2 L MCHC 31.1 RDW 15.5 Plt Count 369 MPV 10.3 Immature Gran % (Auto) 0.4 Neut % (Auto) 71.6 Lymph % (Auto) 20.2 [place] % (Auto) 5.5 Eos % (Auto) 1.9 Baso % (Auto) 0.4 Lymph # (Auto) 3.8 [place] # (Auto) 1.0 Eos # (Auto) 0.4 Baso # (Auto) 0.1 Abs Immat Gran (auto) 0.08 H Absolute Neuts (auto) 13.6 H Absolute Nucleated RBC 0.000 Nucleated RBC % (auto) 0.0 Anion Gap Estim Creat Clear Calc Estimated GFR Random Glucose Lactic Acid 1.2 Calcium Total Bilirubin Direct Bilirubin AST ALT Alkaline Phosphatase Total Protein Albumin Lipase Urine Color Urine Appearance Urine pH Ur Specific [place] Urine Protein Urine Glucose (UA) Urine Ketones Urine Blood Urine Nitrite Ur Leukocyte Esterase Urine RBC Urine WBC Ur Squamous Epith Cells [place] Crystals Urine Bacteria Urine Yeast Urine Test COVID-19 ([facility]) Negative COVID-19 Clin Com See Note Imaging Radiologist's Impressions: Impressions Abdomen/Pelvis CT 11/07/20 15:17 IMPRESSION: Mild diverticulitis of the distal left/proximal sigmoid colon. Multiple abdominal wall hernias including large lower midline abdominal wall hernia containing small bowel and fat and right lateral abdominal wall or spigelian hernia containing small bowel and fat.. No evidence of obstruction. Small left renal stone. Assessment and Plan (1) Abdominal pain: Qualifiers: Abdominal location: lower abdomen, unspecified Qualified Code(s): R10.30 - Lower abdominal pain, unspecified Status: Acute (2) SIRS (systemic inflammatory response syndrome): Status: Acute (3) History of diverticulitis: Status: Acute 60yo F with DM2 and at least 3 prior episodes of diverticulitis and prior sigmoid resection presenting with recurrent sigmoid diverticulitis with sepsis # acute diverticulitis - admit to M/S, give IV levofloxacin/metronidazole, consult surgery for recurrence, give morphine prn pain, keep on clear liquid diet # chronic pain - continue pregabalin, tizanidine # migraines - prn sumatriptan, Fioricet # asthma, not in acute exacerbation - continue ICS/LABA, prn albuterol # HTN - continue lisinopril # DM2 - correction-dose lispro # VTE ppx - LMWH # code - FULL Quality Stroke Does the patient have a stroke diagnosis?: No VTE Prior VTE?: No VTE Risk Level:: Medical - moderate - high VTE Device Contraindication: N/A - Device Ordered VTE Drug Contraindication: N/A - Med Ordered
[2020-11-07 17:58] LABS: C Reactive Protein 2.71 mg/dL (< or = 0.50)
[2020-11-07 18:23] LABS: Glucose, Whole Blood 87 mg/dL (60-115)
[2020-11-07] MEDS: Acetaminophen 325 MG TABLET 650 MG PO (19:26)
--- NOTE | 2020-11-07 19:34 | MHC.CM.PN ---
CM met with pt. A&Ox3. IMM reviewed and signed per protocol 11/07/20@1900. [facility]/Luis Perez ([phone]), it is on file. Pt lives with Luis Chavez. Pt has no DME and no services. D/C plan is home without services. Transportation by family. CM to follow for d/c needs.
[2020-11-07] MEDS: Enoxaparin Sodium 40 MG/0.4 ML SYRINGE SUBCUT (21:00)
[2020-11-07] MEDS: Calcium + Vitamin D 250 MG TABLET 500 MG PO (21:00)
[2020-11-07] MEDS: TiZANidine HCL 4 MG TABLET 2 MG PO (21:01)
[2020-11-07] MEDS: Sucralfate 1 GM TABLET PO (21:01)
[2020-11-07 21:04] LABS: Glucose, Whole Blood 77 mg/dL (60-115)
--- NOTE | 2020-11-07 21:17 | PC.NURSE ---
PTS LOWER ABD PAIN HAS BEEN SOMEWHAT DIFFICULT TO CONTROL SINCE ARRIVAL TO ED. DISCUSSED WITH HOSPITALIST.
[2020-11-07] MEDS: HYDROmorphone HCl 0.5 MG/0.5 ML SYRINGE IVPUSH (21:42)
[2020-11-07] MEDS: SUMAtriptan succinate 100 MG TABLET PO (22:11)
[2020-11-08] VITALS (7 sets, daily range): BP systolic 93–116; BP diastolic 47–66; PULSE 60–77; RESP 16–20; TEMP 36.1–36.8; O2SAT 93–96
[2020-11-08] MEDS: metroNIDAZOLE/NS 500 MG/100 ML PIGGYBACK 100 MG IV ×3 (01:41→18:37)
[2020-11-08] MEDS: Zolpidem Tartrate 5 MG TABLET PO (01:41)
[2020-11-08] MEDS: HYDROmorphone HCl 0.5 MG/0.5 ML SYRINGE IVPUSH ×5 (01:41→18:44)
[2020-11-08] MEDS: ondansetron HCL 4 MG/2 ML VIAL IVPUSH (02:28)
[2020-11-08 06:49] LABS: Anion Gap 15 (12-20); Blood Urea Nitrogen 13 mg/dL (9-16); Calcium 9.1 mg/dL (8.4-10.2); Carbon Dioxide 21 mmol/L (22-29); Chloride 106 mmol/L (96-108); Creatinine Clr Calc Pharmacy 72.3; Estimated Glomerular Filt Rate > 60; Glucose Random 124 mg/dL (60-115); Potassium 4.2 mmol/L (3.3-5.1); Sodium 138 mmol/L (135-145)
[2020-11-08 06:51] LABS: Hematocrit 36.8 % (37-47); Hemoglobin 11.1 g/dl (12.0-16.0); Mean Corpuscular HGB Conc 30.2 g/dl (31.0-35.0); Mean Corpuscular Hemoglobin 25.8 pg (27.0-33.0); Mean Corpuscular Volume 85.4 fL (80-98); Mean Platelet Volume 10.6 fL (9.4-12.3); Platelet Count 305 X10*3/uL (160-400); Red Blood Count 4.31 X10*6/uL (4.20-5.50); Red Cell Distribution Width 15.4 % (11.0-16.0); White Blood Count 12.9 X10*3/uL (4.8-10.8)
[2020-11-08 07:21] LABS: Glucose, Whole Blood 119 mg/dL (60-115)
[2020-11-08] MEDS: Pregabalin 150 MG CAPSULE PO (08:19)
[2020-11-08] MEDS: Sucralfate 1 GM TABLET PO ×4 (08:19→20:38)
[2020-11-08] MEDS: Calcium + Vitamin D 250 MG TABLET 500 MG PO ×2 (08:19→20:38)
[2020-11-08] MEDS: TiZANidine HCL 4 MG TABLET 2 MG PO ×3 (08:19→20:37)
[2020-11-08] MEDS: Aspirin 81 MG TAB.CHEW PO (08:19)
[2020-11-08] MEDS: Atorvastatin Calcium 20 MG TABLET PO (08:19)
[2020-11-08] MEDS: buPROPion HCl XL 150 MG TAB.ER.24H PO (08:19)
[2020-11-08] MEDS: 0.9 % Sodium Chloride Flush 3 ML SYRINGE IVFLUSH ×2 (08:22→17:06)
--- NOTE | 2020-11-08 10:50 | P.CONGS_ITS ---
History of Present Illness Consult details Consult date: 11/08/20 Narrative: [age] year female referred to me because of diverticulitis. She was admitted last night because of a 2 day history lower abdominal pain. She denies any nausea or vomiting. She denies any fever at home. She has a history of diverticular disease. She had previously undergone anterior resection in [address] Paige with a diverting loop ileostomy because of her diverticular disease. The ileostomy was reversed in 2011. She says she has had about 3 episodes of diverticulitis again since then. Her last documented episode was in 2019 when she was admitted here. She had a colonoscopy in [place] about 4 years ago. She does state that she was told to have another colonoscopy sometime this year. Review of Systems Constitutional: Constitutional: Denies chills and Denies fever(s) Cardiovascular: Cardiovascular: Denies chest pain, Denies dyspnea and Denies dyspnea on exertion Respiratory: Respiratory: Denies cough, Denies dyspnea and Denies dyspnea on exertion Gastrointestinal: Gastrointestinal: Denies hematochezia and Denies change in bowel habits Genitourinary: Genitourinary: Denies hematuria Musculoskeletal: Musculoskeletal: Denies back pain and Denies limited range of motion Neurologic: Denies focal weakness and Denies convulsions Psychiatric: Psychiatric: Denies depression and Denies mood swings PMFSH Past Medical History Medical History Asthma Chronic back pain Depression Diabetes 1.5, managed as type 2 Diverticulitis HTN (hypertension) Migraines Surgical History Surgical History History of cholecystectomy History of hysterectomy History of partial colectomy Social History Social History Household Members: Significant Other Housing: Apartment Do you presently have visiting nurse or other home services: No Alcohol intake: never Patient Tobacco Use Status: Never used Tobacco Second Hand Smoke Exposure: Yes Use of substances other than those prescribed or required for medical reasons: No Currently Displaying Signs/Symptoms of Drug Intoxication Withdrawal: No Have you been hit, kicked, punched, or otherwise hurt by someone within the past year? If so, by whom?: No Do you feel safe in your current relationship?: Yes Is there a partner from a previous relationship who is making you feel unsafe now?: No Are you made to feel afraid or neglected: No Advance Directives: Yes Advance Directives on File: Yes Advance Directives Date on File: 10/01/20 Do you have thoughts of harming others: None Do you have a plan to hurt others: No Plan Recently lost weight without trying: No Eating poorly because of decreased appetite: No Nutrition Risks: No Nutritional Risk Patient : No : No Poor oral hygiene: No service: No Current occupational status: disabled Meds Allergies Allergy/AdvReac Type Severity Reaction Status Date / Time Penicillins [PENICILLINS] Allergy Severe RASH Verified 10/09/20 13:08 gabapentin [GABAPENTIN] Allergy Mild ABD PAIN Verified 10/09/20 13:08 esomeprazole [Nexium] Allergy Unknown rash Verified 10/09/20 13:08 famotidine [From PEPCID] Allergy Unknown UPSET Verified 10/09/20 13:08 STOMACH lansoprazole [Prevacid] Allergy Unknown rash Verified 10/09/20 13:08 penicillin V Allergy Unknown stomach Verified 10/09/20 13:08 pains From NEXIUM Allergy Unknown RASH Uncoded 01/12/20 14:52 Active Medications: Current Medications Generic Name Dose Route Start Last Admin Trade Name Freq PRN Reason Stop Dose Admin Acetaminophen 650 mg 11/07/20 18:02 11/07/20 19:26 Acetaminophen 325 Mg Tablet PO 650 mg Q6H PRN Administration Pain, Mild (Pain Scale 1-3) Albuterol Sulfate 2 puff 11/07/20 18:45 Albuterol Sulfate 90 Mcg 8 Gm Inhaler INHALE Q4H PRN Shortness of Breath/Wheezing Aspirin 81 mg 11/08/20 09:00 11/08/20 08:19 Aspirin 81 Mg Tab.Chew PO 81 mg DAILY [facility] Administration Atorvastatin Calcium 20 mg 11/08/20 09:00 11/08/20 08:19 Atorvastatin Calcium 20 Mg Tablet PO 20 mg DAILY [facility] Administration Bupropion HCl 150 mg 11/08/20 09:00 11/08/20 08:19 Bupropion Hcl Xl 150 Mg Tab.Er.24h PO 150 mg DAILY [facility] Administration Calcium Carbonate/Cholecalciferol 500 mg 11/07/20 21:00 11/08/20 08:19 Calcium + Vitamin D 250 Mg Tablet PO 500 mg BID [facility] Administration Enoxaparin Sodium 40 mg 11/07/20 20:00 11/07/20 21:00 Enoxaparin Sodium 40 Mg/0.4 Ml Syringe SUBCUT 40 mg Q24H [facility] Administration Fluticasone/Vilanterol 1 puff 11/08/20 08:00 Fluticasone/Vilanterol 100/25 Blst.W.Dev INHALE RDAILY [facility] Hydromorphone HCl 0.5 mg 11/07/20 21:14 11/08/20 10:22 Hydromorphone Hcl 0.5 Mg/0.5 Ml Syringe IVPUSH 0.5 mg Q4H PRN Administration Pain, Severe (Pain Scale 7-10) Levofloxacin 750 mg in 150 mls @ 100 mls/hr 11/08/20 17:00 Levaquin IV Q24H [facility] Metronidazole 500 mg in 100 mls @ 100 mls/hr 11/08/20 01:00 11/08/20 09:40 Flagyl IV Infused Q8H [facility] Infusion Promethazine HCl 12.5 mg/ 50.5 mls @ 202 mls/hr 11/08/20 09:08 11/08/20 10:25 Sodium Chloride IV Infused Q6H PRN Infusion Nausea Insulin Human Lispro 0 unit 11/07/20 21:00 11/08/20 08:12 Insulin Lispro 100 Unit/Ml 3 Ml Vial SUBCUT [facility] Protocol Insulin Human Lispro 0 unit 11/08/20 07:30 11/08/20 08:12 Insulin Lispro 100 Unit/Ml 3 Ml Vial SUBCUT Not Given [facility] Protocol Ondansetron HCl 4 mg 11/07/20 18:02 11/08/20 02:28 Ondansetron Hcl 4 Mg/2 Ml Vial IVPUSH 4 mg Q8H PRN Administration Nausea and Vomiting Pharmacy Consult 1 each 11/07/20 17:18 Consult Rx Perform Med Rec MISCELLANE ONCE PRN Consult order Pregabalin 150 mg 11/08/20 09:00 11/08/20 08:19 Pregabalin 150 Mg Capsule PO 150 mg DAILY [facility] Administration Sodium Chloride 3 ml 11/08/20 00:00 11/08/20 08:22 0.9 % Sodium Chloride Flush 3 Ml Syringe IVFLUSH 3 ml QSHIFT [facility] Administration Sucralfate 1 gm 11/07/20 21:00 11/08/20 08:19 Sucralfate 1 Gm Tablet PO 1 gm QIDWMHS [facility] Administration Sumatriptan Succinate 100 mg 11/07/20 18:39 11/07/20 22:11 Sumatriptan Succinate 100 Mg Tablet PO 100 mg DAILY PRN Administration headache Tiotropium [place] 2 puff 11/08/20 08:00 Tiotropium [place] 18 Mcg Cap.W.Dev INHALE RDAILY [facility] Tizanidine HCl 2 mg 11/07/20 21:00 11/08/20 08:19 Tizanidine Hcl 4 Mg Tablet PO 2 mg TID [facility] Administration Zolpidem Tartrate 5 mg 11/07/20 18:39 11/08/20 01:41 Zolpidem Tartrate 5 Mg Tablet PO 5 mg BEDTIME PRN Administration insomnia Home Medications Medication Instructions Recorded Confirmed Last Taken Type Jardiance 1 tab PO DAILY 04/17/20 11/07/20 11/07/20 History aspirin 81 mg PO DAILY 04/17/20 11/07/20 11/07/20 History atorvastatin 1 tab PO DAILY 04/17/20 11/07/20 11/07/20 History budesonide-formoterol [Symbicort] 2 puff PO BID 04/17/20 11/07/20 11/07/20 History bupropion HCl 1 tab PO QAM 04/17/20 11/07/20 11/07/20 History calcium carbonate-vitamin D3 1 tab PO BID 04/17/20 11/07/20 11/07/20 History glimepiride 4 mg PO QAM 04/17/20 11/07/20 04/16/20 History hydroxyzine HCl 1 tab PO DAILY 04/17/20 11/07/20 11/07/20 History levocetirizine 1 tab PO BEDTIME 04/17/20 11/07/20 11/07/20 History omeprazole 2 cap PO BID 04/17/20 11/07/20 11/07/20 History ondansetron HCl 1 tab PO Q8H 04/17/20 11/07/20 04/15/20 History pregabalin 1 cap PO DAILY 04/17/20 11/07/20 11/07/20 History sucralfate 1 tab PO QIDWMHS 04/17/20 11/07/20 04/15/20 History sumatriptan succinate 100 mg PO DAILY 04/17/20 11/07/20 04/15/20 History tizanidine 1 tab PO TID 04/17/20 11/07/20 11/07/20 History blood sugar diagnostic #10 ea 09/28/20 Unknown History lancets 28 gauge #100 ea 09/28/20 Unknown History albuterol sulfate 90 mcg/actuation 2 puff INHALATION Q4H PRN 10/09/20 11/07/20 11/07/20 History aerosol inhaler buspirone 1 tab PO DAILY 11/07/20 11/07/20 11/07/20 History galcanezumab-gnlm [Emgality Pen] 120 mg SUBCUT Q4W 11/07/20 11/07/20 10/27/20 History glimepiride 2 mg PO BID@1400,2100 11/07/20 11/07/20 11/07/20 History glipizide 1 tab PO DAILY 11/07/20 11/07/20 11/07/20 History lisinopril 2.5 mg PO DAILY 11/07/20 11/07/20 11/07/20 History tiotropium bromide [Spiriva with 1 cap INHALATION DAILY 11/07/20 11/07/20 11/07/20 History HandiHaler] zileuton 2 tab PO BID 11/07/20 11/07/20 11/07/20 History Physical Exam Vital Signs: Vital Signs: Last Vital Signs Temp 97.7 F 11/08/20 07:46 Pulse 65 11/08/20 07:46 Resp 20 11/08/20 07:46 BP 116/62 11/08/20 07:46 Pulse Ox 94 11/08/20 07:46 Body Mass Index 32.8 Const: General: comfortable and no acute distress Orientation/consciousness: patient oriented x3 Neck: Neck: Yes no lymphadenopathy Resp: Auscultation: clear to auscultation bilaterally Cardio: Rhythm: regular rhythm GI: Other: Mild tenderness on the lower abdomen without any rebound or guarding Palpation (GI): Soft to palpation and no guarding Neuro: General: patient oriented x3 Results Labs Result diagrams: 11/08/20 05:38 11/08/20 05:38 Labs: Abnormal lab results 11/07/20 11/07/20 11/07/20 Range/Units 16:03 16:03 16:05 WBC 19.0 H (4.8-10.8) X10*3/uL Hgb (12.0-16.0) g/dl Hct (37-47) % MCH 26.2 L (27.0-33.0) pg MCHC (31.0-35.0) g/dl Abs Immat Gran (auto) 0.08 H (0.00-0.03) X10*3/uL Absolute Neuts (auto) 13.6 H (2.0-8.3) X10*3/uL Carbon Dioxide (22-29) mmol/L POC Glucose (60-115) mg/dL Random Glucose (60-115) mg/dL Alkaline Phosphatase 126 H (39-117) U/L C-Reactive Protein 2.71 H (< or = 0.50) mg/dL Urine Glucose (UA) >=1000 H (NEG) MG/DL 11/08/20 11/08/20 11/08/20 Range/Units 05:38 05:38 07:17 WBC 12.9 H (4.8-10.8) X10*3/uL Hgb 11.1 L (12.0-16.0) g/dl Hct 36.8 L (37-47) % MCH 25.8 L (27.0-33.0) pg MCHC 30.2 L (31.0-35.0) g/dl Abs Immat Gran (auto) (0.00-0.03) X10*3/uL Absolute Neuts (auto) (2.0-8.3) X10*3/uL Carbon Dioxide 21 L (22-29) mmol/L POC Glucose 119 H (60-115) mg/dL Random Glucose 124 H D (60-115) mg/dL Alkaline Phosphatase (39-117) U/L C-Reactive Protein (< or = 0.50) mg/dL Urine Glucose (UA) (NEG) MG/DL Short CBC 11/07/20 11/08/20 Range/Units 16:05 05:38 WBC 19.0 H 12.9 H (4.8-10.8) X10*3/uL Hgb 12.1 11.1 L (12.0-16.0) g/dl Hct 38.9 36.8 L (37-47) % Plt Count 369 305 (160-400) X10*3/uL BMP 11/07/20 11/08/20 16:03 05:38 Sodium 143 138 Potassium 4.5 4.2 Chloride 108 106 Carbon Dioxide 24 21 L BUN 15 13 Creatinine 1.01 0.86 Calcium 10.2 D 9.1 D Liver Function 11/07/20 Range/Units 16:03 Total Bilirubin 0.4 (0.0-1.0) mg/dL Direct Bilirubin 0.2 (0.0-0.5) mg/dL AST 9 (5-31) U/L ALT 12 (0-31) U/L Alkaline Phosphatase 126 H (39-117) U/L Albumin 4.2 (3.5-5.0) g/dL Urine 11/07/20 11/07/20 Range/Units 16:03 16:03 Urine Color YELLOW Urine Appearance CLEAR Urine pH 6.0 (5.0-8.0) Ur Specific [place] <= 1.005 (1.005-1.025) Urine Protein NEG (NEG-TRACE) MG/DL Urine Glucose (UA) >=1000 H (NEG) MG/DL Urine Test NEGATIVE (NEGATIVE) All other labs normal. Imaging Abdomen CT scan report/results: report reviewed and image reviewed CT scan - pelvis: report reviewed and image reviewed Assessment and Plan (1) Diverticulitis: Status: Acute She has changes consistent with diverticulitis on the area of the colon just proximal to her previous resection. She does have a benign exam at this time and says that pain is better compared to yesterday. I would agree on continuing her treatment with antibiotic therapy. She does not appear to require urgent surgical intervention at this time. She does understand that if she has repeated episodes, she has the option of proceeding with another resection down the line. I will follow along while she is in the hospital. Reviewed her CAT scan and this shows mild inflammatory stranding around the proximal sigmoid. There was no abscess or significant wall thickening. Procedures Date of Service Date of Service: 11/09/20
--- NOTE | 2020-11-08 10:54 | HO.PM.IMPN ---
Subjective Subjective Date of Service: 11/08/20 Interval History: reports nausea lower abd pain improved Physical Exam Vital Signs: Vital Signs: Last Vital Signs Temp 97.7 F 11/08/20 07:46 Pulse 65 11/08/20 07:46 Resp 20 11/08/20 07:46 BP 116/62 11/08/20 07:46 Pulse Ox 94 11/08/20 07:46 Body Mass Index 32.8 Gen: in no acute distress HEENT: sclera anicteric, moist mucus membranes Neck: supple Lungs: clear to auscultation bilaterally Heart: regular rate and rhythm, no murmurs Abd: soft, mildly tender bilateral lower quadrants without rebound or guarding Ext: no edema Skin: warm/well-perfused Neuro: alert and oriented x3, no focal findings Psych: appropriate affect Objective Data Current Medications Generic Name Dose Route Start Last Admin Trade Name Freq PRN Reason Stop Dose Admin Acetaminophen 650 mg 11/07/20 18:02 11/07/20 19:26 Acetaminophen 325 Mg Tablet PO 650 mg Q6H PRN Administration Pain, Mild (Pain Scale 1-3) Albuterol Sulfate 2 puff 11/07/20 18:45 Albuterol Sulfate 90 Mcg 8 Gm Inhaler INHALE Q4H PRN Shortness of Breath/Wheezing Aspirin 81 mg 11/08/20 09:00 11/08/20 08:19 Aspirin 81 Mg Tab.Chew PO 81 mg DAILY [facility]ORIO Administration Atorvastatin Calcium 20 mg 11/08/20 09:00 11/08/20 08:19 Atorvastatin Calcium 20 Mg Tablet PO 20 mg DAILY [facility]ORIO Administration Bupropion HCl 150 mg 11/08/20 09:00 11/08/20 08:19 Bupropion Hcl Xl 150 Mg Tab.Er.24h PO 150 mg DAILY [facility]ORIO Administration Calcium Carbonate/Cholecalciferol 500 mg 11/07/20 21:00 11/08/20 08:19 Calcium + Vitamin D 250 Mg Tablet PO 500 mg BID [facility]IO Administration Enoxaparin Sodium 40 mg 11/07/20 20:00 11/07/20 21:00 Enoxaparin Sodium 40 Mg/0.4 Ml Syringe SUBCUT 40 mg Q24H [facility] Administration Fluticasone/Vilanterol 1 puff 11/08/20 08:00 Fluticasone/Vilanterol 100/25 Blst.W.Dev INHALE RDAILY [facility] Hydromorphone HCl 0.5 mg 11/07/20 21:14 11/08/20 10:22 Hydromorphone Hcl 0.5 Mg/0.5 Ml Syringe IVPUSH 0.5 mg Q4H PRN Administration Pain, Severe (Pain Scale 7-10) Levofloxacin 750 mg in 150 mls @ 100 mls/hr 11/08/20 17:00 Levaquin IV Q24H [facility] Metronidazole 500 mg in 100 mls @ 100 mls/hr 11/08/20 01:00 11/08/20 09:40 Flagyl IV Infused Q8H [facility] Infusion Promethazine HCl 12.5 mg/ 50.5 mls @ 202 mls/hr 11/08/20 09:08 11/08/20 10:25 Sodium Chloride IV Infused Q6H PRN Infusion Nausea Insulin Human Lispro 0 unit 11/07/20 21:00 11/08/20 08:12 Insulin Lispro 100 Unit/Ml 3 Ml Vial SUBCUT [facility] Protocol Insulin Human Lispro 0 unit 11/08/20 07:30 11/08/20 08:12 Insulin Lispro 100 Unit/Ml 3 Ml Vial SUBCUT Not [facility] Protocol Ondansetron HCl 4 mg 11/07/20 18:02 11/08/20 02:28 Ondansetron Hcl 4 Mg/2 Ml Vial IVPUSH 4 mg Q8H PRN Administration Nausea and Vomiting Pharmacy Consult 1 each 11/07/20 17:18 Consult Rx Perform Med Rec MISCELLANE ONCE PRN Consult order Pregabalin 150 mg 11/08/20 09:00 11/08/20 08:19 Pregabalin 150 Mg Capsule PO 150 mg DAILY [facility] Administration Sodium Chloride 3 ml 11/08/20 00:00 11/08/20 08:22 0.9 % Sodium Chloride Flush 3 Ml Syringe IVFLUSH 3 ml QSHIFT [facility] Administration Sucralfate 1 gm 11/07/20 21:00 11/08/20 08:19 Sucralfate 1 Gm Tablet PO 1 gm QIDWMHS [facility] Administration Sumatriptan Succinate 100 mg 11/07/20 18:39 11/07/20 22:11 Sumatriptan Succinate 100 Mg Tablet PO 100 mg DAILY PRN Administration headache Tiotropium [place] 2 puff 11/08/20 08:00 Tiotropium [place] 18 Mcg Cap.W.Dev INHALE RDAILY LIBORIO Tizanidine HCl 2 mg 11/07/20 21:00 11/08/20 08:19 Tizanidine Hcl 4 Mg Tablet PO 2 mg TID [facility]ORIO Administration Zolpidem Tartrate 5 mg 11/07/20 18:39 11/08/20 01:41 Zolpidem Tartrate 5 Mg Tablet PO 5 mg BEDTIME PRN Administration insomnia Labs CBC & Chem 7: 11/08/20 05:38 11/08/20 05:38 Labs: Laboratory Results - last 24 hr 11/07/20 11/07/20 11/07/20 16:03 16:03 16:03 WBC RBC Hgb Hct MCV MCH MCHC RDW Plt Count MPV Immature Gran % (Auto) Neut % (Auto) Lymph % (Auto) Me[place] % (Auto) Eos % (Auto) Baso % (Auto) Lymph # (Auto) [place] # (Auto) Eos # (Auto) Baso # (Auto) Abs Immat Gran (auto) Absolute Neuts (auto) Absolute Nucleated RBC Nucleated RBC % (auto) Sodium 143 Potassium 4.5 Chloride 108 Carbon Dioxide 24 Anion Gap 16 BUN 15 Creatinine 1.01 Estim Creat Clear Calc 61.5 Estimated GFR 56 POC Glucose Random Glucose 81 Lactic Acid Calcium 10.2 D Total Bilirubin 0.4 Direct Bilirubin 0.2 AST 9 ALT 12 Alkaline Phosphatase 126 H C-Reactive Protein 2.71 H Total Protein 7.7 Albumin 4.2 Lipase 13 Urine Color YELLOW Urine Appearance CLEAR Urine pH 6.0 Ur Specific [place] <= 1.005 Urine Protein NEG Urine Glucose (UA) >=1000 H Urine Ketones NEG Urine Blood NEG Urine Nitrite NEG Ur Leukocyte Esterase NEG Urine RBC 0 Urine WBC 0 Ur Squamous Epith Cells 2+ [place] Crystals TRACE Urine Bacteria 1+ Urine Yeast TRACE Urine Test NEGATIVE COVID-19 ([facility]) COVID-19 Clin Com 11/07/20 11/07/20 11/07/20 16:05 16:57 16:57 WBC 19.0 H RBC 4.62 Hgb 12.1 Hct 38.9 MCV 84.2 MCH 26.2 L MCHC 31.1 RDW 15.5 Plt Count 369 MPV 10.3 Immature Gran % (Auto) 0.4 Neut % (Auto) 71.6 Lymph % (Auto) 20.2 Meagher % (Auto) 5.5 Eos % (Auto) 1.9 Baso % (Auto) 0.4 Lymph # (Auto) 3.8 Meagher # (Auto) 1.0 Eos # (Auto) 0.4 Baso # (Auto) 0.1 Abs Immat Gran (auto) 0.08 H Absolute Neuts (auto) 13.6 H Absolute Nucleated RBC 0.000 Nucleated RBC % (auto) 0.0 Sodium Potassium Chloride Carbon Dioxide Anion Gap BUN Creatinine Estim Creat Clear Calc Estimated GFR POC Glucose Random Glucose Lactic Acid 1.2 Calcium Total Bilirubin Direct Bilirubin AST ALT Alkaline Phosphatase C-Reactive Protein Total Protein Albumin Lipase Urine Color Urine Appearance Urine pH Ur Specific [place] Urine Protein Urine Glucose (UA) Urine Ketones Urine Blood Urine Nitrite Ur Leukocyte Esterase Urine RBC Urine WBC Ur Squamous Epith Cells Talc Crystals Urine Bacteria Urine Yeast Urine Test COVID-19 ([facility]) Negative COVID-19 Clin Com See Note 11/07/20 11/07/20 11/08/20 18:19 21:01 05:38 WBC 12.9 H RBC 4.31 Hgb 11.1 L Hct 36.8 L MCV 85.4 MCH 25.8 L MCHC 30.2 L RDW 15.4 Plt Count 305 MPV 10.6 Immature Gran % (Auto) Neut % (Auto) Lymph % (Auto) [place] % (Auto) Eos % (Auto) Baso % (Auto) Lymph # (Auto) [place] # (Auto) Eos # (Auto) Baso # (Auto) Abs Immat Gran (auto) Absolute Neuts (auto) Absolute Nucleated RBC 0.000 Nucleated RBC % (auto) 0.0 Sodium Potassium Chloride Carbon Dioxide Anion Gap BUN Creatinine Estim Creat Clear Calc Estimated GFR POC Glucose 87 77 Random Glucose Lactic Acid Calcium Total Bilirubin Direct Bilirubin AST ALT Alkaline Phosphatase C-Reactive Protein Total Protein Albumin Lipase Urine Color Urine Appearance Urine pH Ur Specific [place] Urine Protein Urine Glucose (UA) Urine Ketones Urine Blood Urine Nitrite Ur Leukocyte Esterase Urine RBC Urine WBC Ur Squamous Epith Cells Talc Crystals Urine Bacteria Urine Yeast Urine Test COVID-19 ([facility]) COVID-SoCAT Com 11/08/20 11/08/20 05:38 07:17 WBC RBC Hgb Hct MCV MCH MCHC RDW Plt Count MPV Immature Gran % (Auto) Neut % (Auto) Lymph % (Auto) [place] % (Auto) Eos % (Auto) Baso % (Auto) Lymph # (Auto) [place] # (Auto) Eos # (Auto) Baso # (Auto) Abs Immat Gran (auto) Absolute Neuts (auto) Absolute Nucleated RBC Nucleated RBC % (auto) Sodium 138 Potassium 4.2 Chloride 106 Carbon Dioxide 21 L Anion Gap 15 BUN 13 Creatinine 0.86 Estim Creat Clear Calc 72.3 Estimated GFR > 60 POC Glucose 119 H Random Glucose 124 H D Lactic Acid Calcium 9.1 D Total Bilirubin Direct Bilirubin AST ALT Alkaline Phosphatase C-Reactive Protein Total Protein Albumin Lipase Urine Color Urine Appearance Urine pH Ur Specific [place] Urine Protein Urine Glucose (UA) Urine Ketones Urine Blood Urine Nitrite Ur Leukocyte Esterase Urine RBC Urine WBC Ur Squamous Epith Cells Talc Crystals Urine Bacteria Urine Yeast Urine Test COVID-19 ([facility]) COVID-19 Clin Com Quality Stroke Does the patient have a stroke diagnosis?: No VTE Prior VTE?: No VTE Risk Level:: Medical - moderate - high VTE Device Contraindication: N/A - Device Ordered VTE Drug Contraindication: N/A - Med Ordered Assessment and Plan (1) Diverticulitis: Status: Acute Assessment and Plan: 60yo F with DM2 and at least 3 prior episodes of diverticulitis and prior sigmoid resection presenting with recurrent sigmoid diverticulitis with sepsis # acute diverticulitis - IV levofloxacin/metronidazole d#2, consult surgery given recurrence, give morphine prn pain, keep on clear liquid diet # chronic pain - continue pregabalin, tizanidine # migraines - prn sumatriptan, Fioricet # asthma, not in acute exacerbation - continue ICS/LABA, prn albuterol # HTN - continue lisinopril # DM2 - correction-dose lispro # VTE ppx - LMWH
[2020-11-08 11:22] LABS: Glucose, Whole Blood 136 mg/dL (60-115)
[2020-11-08] MEDS: lisinopriL 2.5 MG TABLET PO (12:25)
[2020-11-08] MEDS: Butalb/Acetamin/Caff 50/325/40 TABLET 1 TAB PO ×2 (13:08→18:40)
[2020-11-08 16:43] LABS: Glucose, Whole Blood 84 mg/dL (60-115)
[2020-11-08] MEDS: levoFLOXacin/D5W 750 MG/150 ML PIGGYBACK 100 MG IV (17:06)
[2020-11-08] MEDS: Omeprazole 40 MG CAPSULE.DR PO (17:06)
[2020-11-08] MEDS: Enoxaparin Sodium 40 MG/0.4 ML SYRINGE SUBCUT (20:31)
[2020-11-08] MEDS: busPIRone HCl 5 MG TABLET 15 MG PO (20:37)
[2020-11-08] MEDS: Clotrimazole 1 % Vaginal Cream 45 GM TUBE 1 APPL VAGINAL (20:40)
[2020-11-08 21:00] LABS: Glucose, Whole Blood 98 mg/dL (60-115)
[2020-11-09] VITALS (13 sets, daily range): BP systolic 83–134; BP diastolic 50–70; PULSE 60–86; RESP 18–20; TEMP 36–36.8; O2SAT 92–96
[2020-11-09] MEDS: 0.9 % Sodium Chloride Flush 3 ML SYRINGE IVFLUSH ×4 (00:01→21:23)
[2020-11-09] MEDS: SUMAtriptan succinate 100 MG TABLET PO (00:04)
[2020-11-09] MEDS: Zolpidem Tartrate 5 MG TABLET PO ×2 (00:04→21:28)
[2020-11-09] MEDS: HYDROmorphone HCl 0.5 MG/0.5 ML SYRINGE IVPUSH ×6 (04:35→21:22)
[2020-11-09] MEDS: Omeprazole 40 MG CAPSULE.DR PO ×2 (06:27→16:37)
[2020-11-09 07:56] LABS: Glucose, Whole Blood 127 mg/dL (60-115)
[2020-11-09] MEDS: buPROPion HCl XL 150 MG TAB.ER.24H PO (08:49)
[2020-11-09] MEDS: Aspirin 81 MG TAB.CHEW PO (08:49)
[2020-11-09] MEDS: lisinopriL 2.5 MG TABLET PO (08:49)
[2020-11-09] MEDS: TiZANidine HCL 4 MG TABLET 2 MG PO ×3 (08:49→21:28)
[2020-11-09] MEDS: Atorvastatin Calcium 20 MG TABLET PO (08:49)
[2020-11-09] MEDS: ondansetron HCL 4 MG/2 ML VIAL IVPUSH ×2 (08:50→19:24)
[2020-11-09] MEDS: Pregabalin 150 MG CAPSULE PO (08:50)
[2020-11-09] MEDS: Sucralfate 1 GM TABLET PO ×4 (08:50→21:23)
[2020-11-09] MEDS: Calcium + Vitamin D 250 MG TABLET 500 MG PO ×2 (08:50→21:23)
[2020-11-09] MEDS: metroNIDAZOLE/NS 500 MG/100 ML PIGGYBACK 100 MG IV ×3 (08:51→18:04)
[2020-11-09] MEDS: Butalb/Acetamin/Caff 50/325/40 TABLET 1 TAB PO ×2 (08:58→17:16)
[2020-11-09] MEDS: Fluticasone/Vilanterol 100/25 BLST.W.DEV 1 PUFF INHALE (09:09)
--- NOTE | 2020-11-09 10:19 | P.PNGS_ITS ---
Subjective Subjective Date of Service: 11/09/20 Interval history: Says she feels a little nauseous when she eats - says she is not ready for regular food yet Still some lower abdominal pain Passing flatus Physical Exam Vital Signs: Vital Signs: Last Vital Signs Temp 98.2 F 11/09/20 08:00 Pulse 78 11/09/20 09:19 Resp 18 11/09/20 08:51 BP 113/58 L 11/09/20 08:49 Pulse Ox 95 11/09/20 08:00 Body Mass Index 32.8 Chemistry 11/07/20 11/08/20 16:03 05:38 Sodium 143 138 Potassium 4.5 4.2 Carbon Dioxide 24 21 L BUN 15 13 Creatinine 1.01 0.86 Calcium 10.2 D 9.1 D Hematology 11/07/20 11/08/20 16:05 05:38 WBC 19.0 H 12.9 H Hgb 12.1 11.1 L Plt Count 369 305 Urinalysis 11/07/20 16:03 Urine Color YELLOW Urine Appearance CLEAR Urine pH 6.0 Ur Specific Gravit y <= 1.005 Urine Protein NEG Urine Glucose (UA) >=1000 H Urine Ketones NEG Urine Blood NEG Urine Nitrite NEG Ur Leukocyte Tere ase NEG Urine RBC 0 Urine WBC 0 Ur Squamous Epith Cells 2+ Const: Other: Appears anxious General: no acute distress Resp: Effort & Inspection: normal respiratory effort Cardio: Rate: regular rate GI: Other: Soft, no guarding or rebound, some tenderness in lower abdomen Progress Note: A&P Assessment and plan (1) Diverticulitis: Status: Acute Assessment and Plan: She states she is not ready to regular food - with therefore put back clear liquids WBC improved No fever Exam otherwise benign CT scan shows only mild inflammatory changes Continue antibiotics Advance diet as tolerated Fall Risk Details Current Medications: Current Medications Generic Name Dose Route Start Last Admin Trade Name Freq PRN Reason Stop Dose Admin Acetaminophen 650 mg 11/07/20 18:02 11/07/20 19:26 Acetaminophen 325 Mg Tablet PO 650 mg Q6H PRN Administration Pain, Mild (Pain Scale 1-3) Acetaminophen/Butalbital/Caffeine 1 tab 11/08/20 12:34 11/09/20 08:58 Butalb/Acetamin/Caff 50/325/40 Tablet PO 1 tab Q4H PRN Administration migraine headache Albuterol Sulfate 2 puff 11/07/20 18:45 Albuterol Sulfate 90 Mcg 8 Gm Inhaler INHALE Q4H PRN Shortness of Breath/Wheezing Aspirin 81 mg 11/08/20 09:00 11/09/20 08:49 Aspirin 81 Mg Tab.Chew PO 81 mg DAILY [facility] Administration Atorvastatin Calcium 20 mg 11/08/20 09:00 11/09/20 08:49 Atorvastatin Calcium 20 Mg Tablet PO 20 mg DAILY [facility] Administration Bupropion HCl 150 mg 11/08/20 09:00 11/09/20 08:49 Bupropion Hcl Xl 150 Mg Tab.Er.24h PO 150 mg DAILY [facility] Administration Buspirone HCl 15 mg 11/08/20 21:00 11/08/20 20:37 Buspirone Hcl 5 Mg Tablet PO 15 mg BEDTIME [facility] Administration Calcium Carbonate/Cholecalciferol 500 mg 11/07/20 21:00 11/09/20 08:50 Calcium + Vitamin D 250 Mg Tablet PO 500 mg BID [facility] Administration Clotrimazole 1 appl 11/08/20 21:00 11/08/20 20:40 Clotrimazole 1 % Vaginal Cream 45 Gm Tube VAGINAL 11/14/20 21:01 1 appl BEDTIME [facility] Administration Enoxaparin Sodium 40 mg 11/07/20 20:00 11/08/20 20:31 Enoxaparin Sodium 40 Mg/0.4 Ml Syringe SUBCUT 40 mg Q24H [facility] Administration Fluticasone/Vilanterol 1 puff 11/08/20 08:00 11/09/20 09:09 Fluticasone/Vilanterol 100/25 Blst.W.Dev INHALE 1 puff RDAILY [facility] Administration Hydromorphone HCl 0.5 mg 11/07/20 21:14 11/09/20 08:51 Hydromorphone Hcl 0.5 Mg/0.5 Ml Syringe IVPUSH 0.5 mg Q4H PRN Administration Pain, Severe (Pain Scale 7-10) Levofloxacin 750 mg in 150 mls @ 100 mls/hr 11/08/20 17:00 11/08/20 18:48 Levaquin IV Infused Q24H [facility] Infusion Metronidazole 500 mg in 100 mls @ 100 mls/hr 11/08/20 01:00 11/09/20 10:04 Flagyl IV Infused Q8H [facility] Infusion Promethazine HCl 12.5 mg/ 50.5 mls @ 202 mls/hr 11/08/20 09:08 11/08/20 20:43 Sodium Chloride IV Infused Q6H PRN Infusion Nausea Insulin Human Lispro 0 unit 11/07/20 21:00 11/09/20 07:57 Insulin Lispro 100 Unit/Ml 3 Ml Vial SUBCUT Not Given QIDACHS [facility] Protocol Insulin Human Lispro 0 unit 11/08/20 07:30 11/09/20 07:35 Insulin Lispro 100 Unit/Ml 3 Ml [facility]ial SUBCUT [facility] Protocol Lisinopril 2.5 mg 11/08/20 12:15 11/09/20 08:49 Lisinopril 2.5 Mg Tablet PO 2.5 mg DAILY [facility] Administration Protocol Omeprazole 40 mg 11/08/20 16:30 11/09/20 06:27 Omeprazole 40 Mg Capsule.Dr PO 40 mg BID@0630,1630 [facility] Administration Ondansetron HCl 4 mg 11/07/20 18:02 11/09/20 08:50 Ondansetron Hcl 4 Mg/2 Ml Vial IVPUSH 4 mg Q8H PRN Administration Nausea and Vomiting Pharmacy Consult 1 each 11/07/20 17:18 Consult Rx Perform Med Rec MISCELLANE ONCE PRN Consult order Pregabalin 150 mg 11/08/20 09:00 11/09/20 08:50 Pregabalin 150 Mg Capsule PO 150 mg DAILY [facility] Administration Sodium Chloride 3 ml 11/08/20 00:00 11/09/20 08:48 0.9 % Sodium Chloride Flush 3 Ml Syringe IVFLUSH 3 ml QSHIFT [facility] Administration Sucralfate 1 gm 11/07/20 21:00 11/09/20 08:50 Sucralfate 1 Gm Tablet PO 1 gm QIDWMHS [facility] Administration Sumatriptan Succinate 100 mg 11/07/20 18:39 11/09/20 00:04 Sumatriptan Succinate 100 Mg Tablet PO 100 mg DAILY PRN Administration headache Tiotropium [place] 2 puff 11/08/20 08:00 11/09/20 09:10 Tiotropium [place] 18 Mcg Cap.W.Dev INHALE 2 puff RDAILY [facility] Administration Tizanidine HCl 2 mg 11/07/20 21:00 11/09/20 08:49 Tizanidine Hcl 4 Mg Tablet PO 2 mg TID [facility] Administration Zolpidem Tartrate 5 mg 11/07/20 18:39 11/09/20 00:04 Zolpidem Tartrate 5 Mg Tablet PO 5 mg BEDTIME PRN Administration insomnia Time Spent With Patient Time: Total time spent is greater than 50% in coordination of care (as documented) at patient's floor/unit and/or counseling patient: Time with patient: 15 - 24 minutes Procedures Date of Service Date of Service: 11/09/20 Quality Stroke Does the patient have a stroke diagnosis?: No VTE Prior VTE?: No VTE Risk Level:: Medical - moderate - high VTE Device Contraindication: N/A - Device Ordered VTE Drug Contraindication: N/A - Med Ordered
--- NOTE | 2020-11-09 11:25 | MHC.CM.PN ---
Per ROUNDS discussion, Patient is not yet medically cleared for dc (on clear liquids and will attempt to advance diet). Home is the goal for dc and CM will follow for possible need to adjust the dc plan.
[2020-11-09 12:20] LABS: Glucose, Whole Blood 184 mg/dL (60-115)
[2020-11-09] MEDS: Insulin Lispro 100 UNIT/ML 3 ML VIAL SUBCUT (12:30)
--- NOTE | 2020-11-09 14:55 | HO.PM.IMPN ---
Subjective Subjective Date of Service: 11/09/20 Interval History: more nauseous- placed back on clear liquids diet abd pain improved no fever no headache Physical Exam Vital Signs: Vital Signs: Last Vital Signs Temp 98.1 F 11/09/20 12:00 Pulse 71 11/09/20 12:00 Resp 19 11/09/20 12:59 BP 103/57 L 11/09/20 12:00 Pulse Ox 94 11/09/20 12:00 Body Mass Index 32.8 Gen: in no acute distress HEENT: sclera anicteric, moist mucus membranes Neck: supple Lungs: clear to auscultation bilaterally Heart: regular rate and rhythm, no murmurs Abd: soft, mildly tender bilateral lower quadrants without rebound or guarding Ext: no edema Skin: warm/well-perfused Neuro: alert and oriented x3, no focal findings Psych: appropriate affect Objective Data Current Medications Generic Name Dose Route Start Last Admin Trade Name Freq PRN Reason Stop Dose Admin Acetaminophen 650 mg 11/07/20 18:02 11/07/20 19:26 Acetaminophen 325 Mg Tablet PO 650 mg Q6H PRN Administration Pain, Mild (Pain Scale 1-3) Acetaminophen/Butalbital/Caffeine 1 tab 11/08/20 12:34 11/09/20 08:58 Butalb/Acetamin/Caff 50/325/40 Tablet PO 1 tab Q4H PRN Administration migraine headache Albuterol Sulfate 2 puff 11/07/20 18:45 Albuterol Sulfate 90 Mcg 8 Gm Inhaler INHALE Q4H PRN Shortness of Breath/Wheezing Aspirin 81 mg 11/08/20 09:00 11/09/20 08:49 Aspirin 81 Mg Tab.Chew PO 81 mg DAILY [facility] Administration Atorvastatin Calcium 20 mg 11/08/20 09:00 11/09/20 08:49 Atorvastatin Calcium 20 Mg Tablet PO 20 mg DAILY [facility] Administration Bupropion HCl 150 mg 11/08/20 09:00 11/09/20 08:49 Bupropion Hcl Xl 150 Mg Tab.Er.24h PO 150 mg DAILY [facility] Administration Buspirone HCl 15 mg 11/08/20 21:00 11/08/20 20:37 Buspirone Hcl 5 Mg Tablet PO 15 mg BEDTIME [facility] Administration Calcium Carbonate/Cholecalciferol 500 mg 11/07/20 21:00 11/09/20 08:50 Calcium + Vitamin D 250 Mg Tablet PO 500 mg BID [facility] Administration Clotrimazole 1 appl 11/08/20 21:00 11/08/20 20:40 Clotrimazole 1 % Vaginal Cream 45 Gm Tube VAGINAL 11/14/20 21:01 1 appl BEDTIME [facility] Administration Enoxaparin Sodium 40 mg 11/07/20 20:00 11/08/20 20:31 Enoxaparin Sodium 40 Mg/0.4 Ml Syringe SUBCUT 40 mg Q24H [facility] Administration Fluticasone/Vilanterol 1 puff 11/08/20 08:00 11/09/20 09:09 Fluticasone/Vilanterol 100/25 Blst.W.Dev INHALE 1 puff RDAILY [facility] Administration Hydromorphone HCl 0.5 mg 11/07/20 21:14 11/09/20 12:59 Hydromorphone Hcl 0.5 Mg/0.5 Ml Syringe IVPUSH 0.5 mg Q4H PRN Administration Pain, Severe (Pain Scale 7-10) Levofloxacin 750 mg in 150 mls @ 100 mls/hr 11/08/20 17:00 11/08/20 18:48 Levaquin IV Infused Q24H [facility] Infusion Metronidazole 500 mg in 100 mls @ 100 mls/hr 11/08/20 01:00 11/09/20 10:04 Flagyl IV Infused Q8H [facility] Infusion Promethazine HCl 12.5 mg/ 50.5 mls @ 202 mls/hr 11/08/20 09:08 11/08/20 20:43 Sodium Chloride IV Infused Q6H PRN Infusion Nausea Insulin Human Lispro 0 unit 11/07/20 21:00 11/09/20 12:30 Insulin Lispro 100 Unit/Ml 3 Ml Vial SUBCUT 2 unit [facility]ID[facility]HS [facility] Administration Protocol Insulin Human Lispro 0 unit 11/08/20 07:30 11/09/20 11:40 Insulin Lispro 100 Unit/Ml 3 Ml Vial SUBCUT [facility] Protocol Lisinopril 2.5 mg 11/08/20 12:15 11/09/20 08:49 Lisinopril 2.5 Mg Tablet PO 2.5 mg DAILY [facility] Administration Protocol Omeprazole 40 mg 11/08/20 16:30 11/09/20 06:27 Omeprazole 40 Mg Capsule. PO 40 mg BID@0630,1630 [facility] Administration Ondansetron HCl 4 mg 11/07/20 18:02 11/09/20 08:50 Ondansetron Hcl 4 Mg/2 Ml Vial IVPUSH 4 mg Q8H PRN Administration Nausea and Vomiting Pharmacy Consult 1 each 11/07/20 17:18 Consult Rx Perform Med Rec MISCELLANE ONCE PRN Consult order Pregabalin 150 mg 11/08/20 09:00 11/09/20 08:50 Pregabalin 150 Mg Capsule PO 150 mg DAILY [facility] Administration Sodium Chloride 3 ml 11/08/20 00:00 11/09/20 08:48 0.9 % Sodium Chloride Flush 3 Ml Syringe IVFLUSH 3 ml QSHIFT [facility] Administration Sucralfate 1 gm 11/07/20 21:00 11/09/20 12:30 Sucralfate 1 Gm Tablet PO 1 gm QIDWMHS [facility] Administration Sumatriptan Succinate 100 mg 11/07/20 18:39 11/09/20 00:04 Sumatriptan Succinate 100 Mg Tablet PO 100 mg DAILY PRN Administration headache Tiotropium [place] 2 puff 11/08/20 08:00 11/09/20 09:10 Tiotropium [place] 18 Mcg Cap.W.Dev INHALE 2 puff RDAILY [facility] Administration Tizanidine HCl 2 mg 11/07/20 21:00 11/09/20 14:14 Tizanidine Hcl 4 Mg Tablet PO 2 mg TID [facility] Administration Zolpidem Tartrate 5 mg 11/07/20 18:39 11/09/20 00:04 Zolpidem Tartrate 5 Mg Tablet PO 5 mg BEDTIME PRN Administration insomnia Labs CBC & Chem 7: 11/08/20 05:38 11/08/20 05:38 Labs: Laboratory Results - last 24 hr 11/08/20 11/08/20 11/09/20 16:40 20:52 07:52 POC Glucose 84 98 127 H 11/09/20 12:01 POC Glucose 184 H Microbiology Microbiology Results: Microbiology 11/07/20 17:14 Blood Culture - Preliminary Blood - Venous No growth after 24 hours. 11/07/20 16:57 Blood Culture - Preliminary Blood - Venous No growth after 24 hours. Quality Stroke Does the patient have a stroke diagnosis?: No VTE Prior VTE?: No VTE Risk Level:: Medical - moderate - high VTE Device Contraindication: N/A - Device Ordered VTE Drug Contraindication: N/A - Med Ordered Assessment and Plan (1) Diverticulitis: Status: Acute Assessment and Plan: hospital d#3 60yo F with DM2 and at least 3 prior episodes of diverticulitis and prior sigmoid resection presenting with recurrent sigmoid diverticulitis with sepsis # acute diverticulitis - IV levofloxacin/metronidazole d#3, surgery following, clear liquid diet, morphine prn pain # chronic pain - continue pregabalin, tizanidine # migraines - prn sumatriptan, Fioricet # asthma, not in acute exacerbation - continue ICS/LABA, prn albuterol # HTN - continue lisinopril # DM2 - correction-dose lispro # VTE ppx - LMWH
[2020-11-09] MEDS: 0.9 % Sodium Chloride 1,000 ML 999 ML IV (15:45)
[2020-11-09 16:24] LABS: Glucose, Whole Blood 71 mg/dL (60-115)
[2020-11-09] MEDS: levoFLOXacin/D5W 750 MG/150 ML PIGGYBACK 100 MG IV (16:38)
[2020-11-09 20:11] LABS: Glucose, Whole Blood 71 mg/dL (60-115)
[2020-11-09] MEDS: Enoxaparin Sodium 40 MG/0.4 ML SYRINGE SUBCUT (21:23)
[2020-11-09] MEDS: busPIRone HCl 5 MG TABLET 15 MG PO (21:24)
[2020-11-10] VITALS (9 sets, daily range): BP systolic 93–122; BP diastolic 53–61; PULSE 58–83; RESP 18–20; TEMP 36.4–37.2; O2SAT 88–95
[2020-11-10] MEDS: SUMAtriptan succinate 100 MG TABLET PO (01:13)
[2020-11-10] MEDS: metroNIDAZOLE/NS 500 MG/100 ML PIGGYBACK 100 MG IV ×3 (01:13→17:35)
[2020-11-10] MEDS: HYDROmorphone HCl 0.5 MG/0.5 ML SYRINGE IVPUSH ×6 (01:14→21:39)
[2020-11-10] MEDS: ondansetron HCL 4 MG/2 ML VIAL IVPUSH ×2 (05:43→19:33)
[2020-11-10] MEDS: Omeprazole 40 MG CAPSULE.DR PO ×2 (05:44→17:34)
[2020-11-10] MEDS: Butalb/Acetamin/Caff 50/325/40 TABLET 1 TAB PO ×4 (05:44→23:50)
[2020-11-10 06:10] LABS: Hematocrit 35.5 % (37-47); Hemoglobin 10.9 g/dl (12.0-16.0); Mean Corpuscular HGB Conc 30.7 g/dl (31.0-35.0); Mean Corpuscular Hemoglobin 25.8 pg (27.0-33.0); Mean Corpuscular Volume 83.9 fL (80-98); Mean Platelet Volume 10.7 fL (9.4-12.3); Platelet Count 328 X10*3/uL (160-400); Red Blood Count 4.23 X10*6/uL (4.20-5.50); Red Cell Distribution Width 15.1 % (11.0-16.0); White Blood Count 11.8 X10*3/uL (4.8-10.8)
[2020-11-10 07:14] LABS: Glucose, Whole Blood 120 mg/dL (60-115)
[2020-11-10] MEDS: Fluticasone/Vilanterol 100/25 BLST.W.DEV 1 PUFF INHALE (07:48)
[2020-11-10] MEDS: 0.9 % Sodium Chloride Flush 3 ML SYRINGE IVFLUSH ×2 (09:38→17:31)
[2020-11-10] MEDS: Aspirin 81 MG TAB.CHEW PO (09:50)
[2020-11-10] MEDS: Calcium + Vitamin D 250 MG TABLET 500 MG PO ×2 (09:50→20:15)
[2020-11-10] MEDS: Pregabalin 150 MG CAPSULE PO (09:50)
[2020-11-10] MEDS: buPROPion HCl XL 150 MG TAB.ER.24H PO (09:50)
[2020-11-10] MEDS: Atorvastatin Calcium 20 MG TABLET PO (09:51)
[2020-11-10] MEDS: Sucralfate 1 GM TABLET PO ×4 (09:51→20:15)
[2020-11-10] MEDS: lisinopriL 2.5 MG TABLET PO (09:51)
[2020-11-10] MEDS: TiZANidine HCL 4 MG TABLET 2 MG PO ×3 (11:45→20:15)
[2020-11-10 11:47] LABS: Glucose, Whole Blood 142 mg/dL (60-115)
--- NOTE | 2020-11-10 12:11 | P.PNIM_ITS ---
Subjective Subjective Date of Service: 11/10/20 Interval History: still nauseous + notes lower abd pain/cramping got IV fluid bolus yesterday for low BP -> improved Physical Exam Vital Signs: Vital Signs: Last Vital Signs Temp 98.6 F 11/10/20 11:29 Pulse 70 11/10/20 11:29 Resp 18 11/10/20 11:29 BP 99/59 L 11/10/20 11:29 Pulse Ox 88 L 11/10/20 11:29 Body Mass Index 32.8 Gen: in no acute distress HEENT: sclera anicteric, moist mucus membranes Neck: supple Lungs: clear to auscultation bilaterally Heart: regular rate and rhythm, no murmurs Abd: soft, mildly tender bilateral lower quadrants without rebound or guarding Ext: no edema Skin: warm/well-perfused Neuro: alert and oriented x3, no focal findings Psych: appropriate affect Objective Data Current Medications Generic Name Dose Route Start Last Admin Trade Name Freq PRN Reason Stop Dose Admin Acetaminophen 650 mg 11/07/20 18:02 11/07/20 19:26 Acetaminophen 325 Mg Tablet PO 650 mg Q6H PRN Administration Pain, Mild (Pain Scale 1-3) Acetaminophen/Butalbital/Caffeine 1 tab 11/08/20 12:34 11/10/20 11:42 Butalb/Acetamin/Caff 50/325/40 Tablet PO 1 tab Q4H PRN Administration migraine headache Albuterol Sulfate 2 puff 11/07/20 18:45 Albuterol Sulfate 90 Mcg 8 Gm Inhaler INHALE Q4H PRN Shortness of Breath/Wheezing Aspirin 81 mg 11/08/20 09:00 11/10/20 09:50 Aspirin 81 Mg Tab.Chew PO 81 mg DAILY [facility] Administration Atorvastatin Calcium 20 mg 11/08/20 09:00 11/10/20 09:51 Atorvastatin Calcium 20 Mg Tablet PO 20 mg DAILY [facility] Administration Bupropion HCl 150 mg 11/08/20 09:00 11/10/20 09:50 Bupropion Hcl Xl 150 Mg Tab.Er.24h PO 150 mg DAILY [facility] Administration Buspirone HCl 15 mg 11/08/20 21:00 11/09/20 21:24 Buspirone Hcl 5 Mg Tablet PO 15 mg BEDTIME [facility] Administration Calcium Carbonate/Cholecalciferol 500 mg 11/07/20 21:00 11/10/20 09:50 Calcium + Vitamin D 250 Mg Tablet PO 500 mg BID COUNTS INCLUDE 234 BEDS AT [facility] Administration Clotrimazole 1 appl 11/08/20 21:00 11/09/20 21:34 Clotrimazole 1 % Vaginal Cream 45 Gm Tube VAGINAL 11/14/20 21:01 Not Given BEDTIME [facility] Enoxaparin Sodium 40 mg 11/07/20 20:00 11/09/20 21:23 Enoxaparin Sodium 40 Mg/0.4 Ml Syringe SUBCUT 40 mg Q24H [facility] Administration Fluticasone/Vilanterol 1 puff 11/08/20 08:00 11/10/20 07:48 Fluticasone/Vilanterol 100/25 Blst.W.Dev INHALE 1 puff RDAILY COUNTS INCLUDE 234 BEDS AT [facility] Administration Hydromorphone HCl 0.5 mg 11/07/20 21:14 11/10/20 09:40 Hydromorphone Hcl 0.5 Mg/0.5 Ml Syringe IVPUSH 0.5 mg Q4H PRN Administration Pain, Severe (Pain Scale 7-10) Levofloxacin 750 mg in 150 mls @ 100 mls/hr 11/08/20 17:00 11/09/20 18:25 Levaquin IV Infused Q24H [facility] Infusion Metronidazole 500 mg in 100 mls @ 100 mls/hr 11/08/20 01:00 11/10/20 11:47 Flagyl IV Infused Q8H [facility] Infusion Promethazine HCl 12.5 mg/ 50.5 mls @ 202 mls/hr 11/08/20 09:08 11/10/20 11:46 Sodium Chloride IV Infused Q6H PRN Infusion Nausea Insulin Human Lispro 0 unit 11/07/20 21:00 11/10/20 07:34 Insulin Lispro 100 Unit/Ml 3 Ml Vial SUBCUT [facility] Protocol Insulin Human Lispro 0 unit 11/08/20 07:30 11/10/20 07:35 Insulin Lispro 100 Unit/Ml 3 Ml Vial SUBCUT Not Given QIDAS COUNTS INCLUDE 234 BEDS AT [facility] Protocol Lisinopril 2.5 mg 11/08/20 12:15 11/10/20 09:51 Lisinopril 2.5 Mg Tablet PO 2.5 mg DAILY COUNTS INCLUDE 234 BEDS AT [facility] Administration Protocol Omeprazole 40 mg 11/08/20 16:30 11/10/20 05:44 Omeprazole 40 Mg Capsule.Dr PO 40 mg BID@5672,3620 [facility] Administration Ondansetron HCl 4 mg 11/07/20 18:02 11/10/20 05:43 Ondansetron Hcl 4 Mg/2 Ml Vial IVPUSH 4 mg Q8H PRN Administration Nausea and Vomiting Pharmacy Consult 1 each 11/07/20 17:18 Consult Rx Perform Med Rec MISCELLANE ONCE PRN Consult order Pregabalin 150 mg 11/08/20 09:00 11/10/20 09:50 Pregabalin 150 Mg Capsule PO 150 mg DAILY [facility] Administration Sodium Chloride 3 ml 11/08/20 00:00 11/10/20 09:38 0.9 % Sodium Chloride Flush 3 Ml Syringe IVFLUSH 3 ml QSHIFT [facility] Administration Sucralfate 1 gm 11/07/20 21:00 11/10/20 11:42 Sucralfate 1 Gm Tablet PO 1 gm QIDWMHS [facility] Administration Sumatriptan Succinate 100 mg 11/07/20 18:39 11/10/20 01:13 Sumatriptan Succinate 100 Mg Tablet PO 100 mg DAILY PRN Administration headache Tiotropium [place] 2 puff 11/08/20 08:00 11/10/20 07:48 Tiotropium [place] 18 Mcg Cap.W.Dev INHALE 2 puff RDAILY [facility] Administration Tizanidine HCl 2 mg 11/07/20 21:00 11/10/20 11:45 Tizanidine Hcl 4 Mg Tablet PO 2 mg TID [facility] Administration Zolpidem Tartrate 5 mg 11/07/20 18:39 11/09/20 21:28 Zolpidem Tartrate 5 Mg Tablet PO 5 mg BEDTIME PRN Administration insomnia Labs CBC & Chem 7: 11/10/20 05:14 11/08/20 05:38 Labs: Laboratory Results - last 24 hr 11/09/20 11/09/20 11/09/20 12:01 16:21 20:07 WBC RBC Hgb Hct MCV MCH MCHC RDW Plt Count MPV Absolute Nucleated RBC Nucleated RBC % (auto) POC Glucose 184 H 71 71 C-Reactive Protein 11/10/20 11/10/20 11/10/20 05:14 05:14 07:04 WBC 11.8 H RBC 4.23 Hgb 10.9 L Hct 35.5 L MCV 83.9 MCH 25.8 L MCHC 30.7 L RDW 15.1 Plt Count 328 MPV 10.7 Absolute Nucleated RBC 0.000 Nucleated RBC % (auto) 0.0 POC Glucose 120 H C-Reactive Protein 1.30 H 11/10/20 11:33 WBC RBC Hgb Hct MCV MCH MCHC RDW Plt Count MPV Absolute Nucleated RBC Nucleated RBC % (auto) POC Glucose 142 H C-Reactive Protein Microbiology Microbiology Results: Microbiology 11/07/20 17:14 Blood Culture - Preliminary Blood - Venous No growth after 48 hours. 11/07/20 16:57 Blood Culture - Preliminary Blood - Venous No growth after 48 hours. Quality Stroke Does the patient have a stroke diagnosis?: No VTE Prior VTE?: No VTE Risk Level:: Medical - moderate - high VTE Device Contraindication: N/A - Device Ordered VTE Drug Contraindication: N/A - Med Ordered Assessment and Plan (1) Diverticulitis: Status: Acute Assessment and Plan: hospital d#4 60yo F with DM2 and at least 3 prior episodes of diverticulitis and prior sigmoid resection presenting with recurrent sigmoid diverticulitis with sepsis # acute diverticulitis - IV levofloxacin/metronidazole d#4, surgery following, continue clear liquid diet, morphine prn pain. WBCs improved # hypotension - fluid-responsive; hold lisinopril # chronic pain - continue pregabalin, tizanidine # migraines - prn sumatriptan, Fioricet # asthma, not in acute exacerbation - continue ICS/LABA, prn albuterol # HTN - hold lisinopril as above # DM2 - correction-dose lispro # VTE ppx - LMWH
[2020-11-10 15:54] LABS: Glucose, Whole Blood 83 mg/dL (60-115)
--- NOTE | 2020-11-10 16:27 | P.PNGS_ITS ---
Subjective Subjective Date of Service: 11/10/20 Interval history: Complains of left lower abdominal pain, mildly improved. No BM, passing flatus Physical Exam Vital Signs: Vital Signs: Last Vital Signs Temp 98.5 F 11/10/20 15:35 Pulse 58 11/10/20 15:35 Resp 18 11/10/20 15:35 BP 114/55 L 11/10/20 15:35 Pulse Ox 95 11/10/20 15:35 Body Mass Index 32.8 Resp: Effort & Inspection: normal respiratory effort GI: Other: soft, obese, nondistended, tender in the LLQ, no rebound or guarding Extrem: General: Yes no clubbing, cyanosis or edema Progress Note: A&P Assessment and plan (1) Diverticulitis: Status: Acute Assessment and Plan: 60 year old female patient with a previous history of diverticulitis, s/p sigmoid resection, now with recurrent left lower quadrant abdominal pain, found to have mild sigmoid diverticulitis at the distal left colon; multiple incisional hernias noted as well. WBC is improving. Continue IV antibiotics (Levaquin and Flagyl) and follow clinical exam. Fall Risk Details Current Medications: Current Medications Generic Name Dose Route Start Last Admin Trade Name Freq PRN Reason Stop Dose Admin Acetaminophen 650 mg 11/07/20 18:02 11/07/20 19:26 Acetaminophen 325 Mg Tablet PO 650 mg Q6H PRN Administration Pain, Mild (Pain Scale 1-3) Acetaminophen/Butalbital/Caffeine 1 tab 11/08/20 12:34 11/10/20 11:42 Butalb/Acetamin/Caff 50/325/40 Tablet PO 1 tab Q4H PRN Administration migraine headache Albuterol Sulfate 2 puff 11/07/20 18:45 Albuterol Sulfate 90 Mcg 8 Gm Inhaler INHALE Q4H PRN Shortness of Breath/Wheezing Aspirin 81 mg 11/08/20 09:00 11/10/20 09:50 Aspirin 81 Mg Tab.Chew PO 81 mg DAILY [facility] Administration Atorvastatin Calcium 20 mg 11/08/20 09:00 11/10/20 09:51 Atorvastatin Calcium 20 Mg Tablet PO 20 mg DAILY [facility] Administration Bupropion HCl 150 mg 11/08/20 09:00 11/10/20 09:50 Bupropion Hcl Xl 150 Mg Tab.Er.24h PO 150 mg DAILY [facility] Administration Buspirone HCl 15 mg 11/08/20 21:00 11/09/20 21:24 Buspirone Hcl 5 Mg Tablet PO 15 mg BEDTIME [facility] Administration Calcium Carbonate/Cholecalciferol 500 mg 11/07/20 21:00 11/10/20 09:50 Calcium + Vitamin D 250 Mg Tablet PO 500 mg BID [facility] Administration Clotrimazole 1 appl 11/08/20 21:00 11/09/20 21:34 Clotrimazole 1 % Vaginal Cream 45 Gm Tube VAGINAL 11/14/20 21:01 Not Given BEDTIME [facility] Enoxaparin Sodium 40 mg 11/07/20 20:00 11/09/20 21:23 Enoxaparin Sodium 40 Mg/0.4 Ml Syringe SUBCUT 40 mg Q24H [facility] Administration Fluticasone/Vilanterol 1 puff 11/08/20 08:00 11/10/20 07:48 Fluticasone/Vilanterol 100/25 Blst.W.Dev INHALE 1 puff RDAILY [facility] Administration Hydromorphone HCl 0.5 mg 11/07/20 21:14 11/10/20 13:35 Hydromorphone Hcl 0.5 Mg/0.5 Ml Syringe IVPUSH 0.5 mg Q4H PRN Administration Pain, Severe (Pain Scale 7-10) Levofloxacin 750 mg in 150 mls @ 100 mls/hr 11/08/20 17:00 11/09/20 18:25 Levaquin IV Infused Q24H [facility] Infusion Metronidazole 500 mg in 100 mls @ 100 mls/hr 11/08/20 01:00 11/10/20 11:47 Flagyl IV Infused Q8H [facility] Infusion Promethazine HCl 12.5 mg/ 50.5 mls @ 202 mls/hr 11/08/20 09:08 11/10/20 11:46 Sodium Chloride IV Infused Q6H PRN Infusion Nausea Insulin Human Lispro 0 unit 11/07/20 21:00 11/10/20 12:42 Insulin Lispro 100 Unit/Ml 3 Ml Vial SUBCUT [facility] Insulin Human Lispro 0 unit 11/08/20 07:30 11/10/20 12:42 Insulin Lispro 100 Unit/Ml 3 Ml Vial SUBCUT Not [facility] Protocol Omeprazole 40 mg 11/08/20 16:30 11/10/20 05:44 Omeprazole 40 Mg Capsule.Dr PO 40 mg BID@0603,1580 [facility] Administration Ondansetron HCl 4 mg 11/07/20 18:02 11/10/20 05:43 Ondansetron Hcl 4 Mg/2 Ml Vial IVPUSH 4 mg Q8H PRN Administration Nausea and Vomiting Pharmacy Consult 1 each 11/07/20 17:18 Consult Rx Perform Med Rec MISCELLANE ONCE PRN Consult order Pregabalin 150 mg 11/08/20 09:00 11/10/20 09:50 Pregabalin 150 Mg Capsule PO 150 mg DAILY [facility] Administration Sodium Chloride 3 ml 11/08/20 00:00 11/10/20 09:38 0.9 % Sodium Chloride Flush 3 Ml Syringe IVFLUSH 3 ml QSHIFT [facility] Administration Sucralfate 1 gm 11/07/20 21:00 11/10/20 11:42 Sucralfate 1 Gm Tablet PO 1 gm QIDWMHS [facility] Administration Sumatriptan Succinate 100 mg 11/07/20 18:39 11/10/20 01:13 Sumatriptan Succinate 100 Mg Tablet PO 100 mg DAILY PRN Administration headache Tiotropium [place] 2 puff 11/08/20 08:00 11/10/20 07:48 Tiotropium [place] 18 Mcg Cap.W.Dev INHALE 2 puff RDAILY [facility] Administration Tizanidine HCl 2 mg 11/07/20 21:00 11/10/20 15:48 Tizanidine Hcl 4 Mg Tablet PO 2 mg TID [facility] Administration Zolpidem Tartrate 5 mg 11/07/20 18:39 11/09/20 21:28 Zolpidem Tartrate 5 Mg Tablet PO 5 mg BEDTIME PRN Administration insomnia Time Spent With Patient Time: Total time spent is greater than 50% in coordination of care (as documented) at patient's floor/unit and/or counseling patient: Time with patient: 15 - 24 minutes Procedures Date of Service Date of Service: 11/10/20 Quality Stroke Does the patient have a stroke diagnosis?: No VTE Prior VTE?: No VTE Risk Level:: Medical - moderate - high VTE Device Contraindication: N/A - Device Ordered VTE Drug Contraindication: N/A - Med Ordered
[2020-11-10] MEDS: levoFLOXacin/D5W 750 MG/150 ML PIGGYBACK 100 MG IV (18:47)
[2020-11-10 19:51] LABS: Glucose, Whole Blood 167 mg/dL (60-115)
[2020-11-10] MEDS: Enoxaparin Sodium 40 MG/0.4 ML SYRINGE SUBCUT (20:14)
[2020-11-10] MEDS: Zolpidem Tartrate 5 MG TABLET PO (20:15)
[2020-11-10] MEDS: Lactated Ringers 500 ML IV (20:15)
[2020-11-10] MEDS: busPIRone HCl 5 MG TABLET 15 MG PO (20:15)
[2020-11-10] MEDS: Clotrimazole 1 % Vaginal Cream 45 GM TUBE 1 APPL VAGINAL (21:39)
[2020-11-11] MEDS: HYDROmorphone HCl 0.5 MG/0.5 ML SYRINGE IVPUSH ×3 (01:31→10:59)
[2020-11-11] MEDS: SUMAtriptan succinate 100 MG TABLET PO (01:35)
[2020-11-11] MEDS: metroNIDAZOLE/NS 500 MG/100 ML PIGGYBACK 100 MG IV ×2 (02:08→09:14)
[2020-11-11 03:11] VITALS: BP 111/56; PULSE 67; RESP 18; TEMP 36.4; O2SAT 93
[2020-11-11 05:22] LABS: Hematocrit 34.4 % (37-47); Hemoglobin 10.6 g/dl (12.0-16.0); Mean Corpuscular HGB Conc 30.8 g/dl (31.0-35.0); Mean Corpuscular Volume 84.3 fL (80-98); Mean Platelet Volume 10.1 fL (9.4-12.3); Platelet Count 308 X10*3/uL (160-400); Red Blood Count 4.08 X10*6/uL (4.20-5.50); White Blood Count 11.6 X10*3/uL (4.8-10.8)
[2020-11-11 05:52] LABS: Anion Gap 13 (12-20); Blood Urea Nitrogen 7 mg/dL (9-16); Calcium 8.7 mg/dL (8.4-10.2); Carbon Dioxide 21 mmol/L (22-29); Chloride 111 mmol/L (96-108); Creatinine Clr Calc Pharmacy 78.6; Estimated Glomerular Filt Rate > 60; Glucose Random 102 mg/dL (60-115); Potassium 3.7 mmol/L (3.3-5.1); Sodium 141 mmol/L (135-145)
[2020-11-11] MEDS: Omeprazole 40 MG CAPSULE.DR PO (06:18)
[2020-11-11] MEDS: Lactated Ringers 1,000 ML 100 ML IVCONT (06:19)
[2020-11-11] MEDS: Butalb/Acetamin/Caff 50/325/40 TABLET 1 TAB PO ×2 (06:27→11:47)
[2020-11-11] MEDS: Fluticasone/Vilanterol 100/25 BLST.W.DEV 1 PUFF INHALE (07:48)
[2020-11-11 07:50] VITALS: PULSE 78; O2SAT 91
[2020-11-11 08:00] VITALS: BP 112/58; PULSE 67; RESP 16; TEMP 36.9; O2SAT 96
[2020-11-11 08:15] LABS: Glucose, Whole Blood 127 mg/dL (60-115)
[2020-11-11] MEDS: TiZANidine HCL 4 MG TABLET 2 MG PO (09:13)
[2020-11-11] MEDS: Aspirin 81 MG TAB.CHEW PO (09:14)
[2020-11-11] MEDS: Pregabalin 150 MG CAPSULE PO (09:14)
[2020-11-11] MEDS: Calcium + Vitamin D 250 MG TABLET 500 MG PO (09:14)
[2020-11-11] MEDS: Atorvastatin Calcium 20 MG TABLET PO (09:14)
[2020-11-11] MEDS: Sucralfate 1 GM TABLET PO ×2 (09:14→11:47)
[2020-11-11] MEDS: buPROPion HCl XL 150 MG TAB.ER.24H PO (09:14)
[2020-11-11] MEDS: ondansetron HCL 4 MG/2 ML VIAL IVPUSH (09:14)
[2020-11-11 11:17] VITALS: BP 110/69; PULSE 76; RESP 16; TEMP 36.8; O2SAT 96
[2020-11-11 11:36] LABS: Glucose, Whole Blood 151 mg/dL (60-115)
--- NOTE | 2020-11-11 12:50 | P.DS_ITS ---
DS: Providers Provider Date of Service: 11/11/20 Date of admission: 11/07/20 18:02 Primary care physician: Venancio Lomeli NP Consults: 11/07/20 17:52 Consult to General Surgery Routine Consulting Provider: [facility] [place] General Surgeons Reason for consultation: recurrent diverticulitis episode #3 DS: Diagnosis Discharge Diagnosis (1) Diverticulitis: Status: Acute (2) Sepsis: Status: Acute DS: Medications Discharge Medications Home Medications: Home Medications Medication Instructions Recorded Confirmed Jardiance 1 tab PO DAILY 04/17/20 11/07/20 aspirin 81 mg PO DAILY 04/17/20 11/07/20 atorvastatin 1 tab PO DAILY 04/17/20 11/07/20 budesonide-formoterol [Symbicort] 2 puff PO BID 04/17/20 11/07/20 bupropion HCl 1 tab PO QAM 04/17/20 11/07/20 calcium carbonate-vitamin D3 1 tab PO BID 04/17/20 11/07/20 glimepiride 4 mg PO QAM 04/17/20 11/07/20 hydroxyzine HCl 1 tab PO DAILY 04/17/20 11/07/20 levocetirizine 1 tab PO BEDTIME 04/17/20 11/07/20 omeprazole 2 cap PO BID 04/17/20 11/07/20 ondansetron HCl 1 tab PO Q8H 04/17/20 11/07/20 pregabalin 1 cap PO DAILY 04/17/20 11/07/20 sucralfate 1 tab PO QIDWMHS 04/17/20 11/07/20 sumatriptan succinate 100 mg PO DAILY 04/17/20 11/07/20 tizanidine 1 tab PO TID 04/17/20 11/07/20 blood sugar diagnostic #10 ea 09/28/20 lancets 28 gauge #100 ea 09/28/20 albuterol sulfate 90 mcg/actuation 2 puff INHALATION Q4H PRN 10/09/20 11/07/20 aerosol inhaler Emgality Pen 120 mg SUBCUT Q4W 11/07/20 11/07/20 Spiriva with HandiHaler 1 cap INHALATION DAILY 11/07/20 11/07/20 buspirone 1 tab PO DAILY 11/07/20 11/07/20 glimepiride 2 mg PO BID@1400,2100 11/07/20 11/07/20 glipizide 1 tab PO DAILY 11/07/20 11/07/20 lisinopril 2.5 mg PO DAILY 11/07/20 11/07/20 zileuton 2 tab PO BID 11/07/20 11/07/20 Previous Rx's Medication Instructions Recorded hydrocodone-acetaminophen 1 tab PO Q8H PRN #10 tab 11/11/20 levofloxacin 750 mg PO DAILY #6 tab 11/11/20 metronidazole 500 mg PO TID #18 tab 11/11/20 DS: Summary Hospital Course Hospital Course: from my admission H+P, 11/07/20: 60yo F with DM2, asthma, nephrolithiasis, and 3 prior episodes of diverticulitis, presenting with 2d of bilateral lower quadrant abdominal pain, non-radiating, associated with nausea. 1 episode of watery diarrhea at onset, no blood present. No fever/chills. No urinary symptoms. No high-risk food or travel exposures. States the pain is similar to her prior episodes of diverticulitis. In 2010, she had sigmoid diverticulitis with abscess formation and subsequently underwent a laparoscopic sigmoid resection with ileostomy, which was subsequently closed. She had another 2 bouts of diverticulitis in 2018 and in 2019 that was managed medically with antibiotic treatment. She had a colonoscopy 3-4 years ago in [place] that she says showed diverticulosis and polyps. She is reportedly due for another colonoscopy in January at [facility]. In the ED, she met sepsis criteria by virtue of tachyardia and leukocytosis and was given levofloxacin and metronidazole due to penicillin allergy. The patient was admitted to the medical/surgical service and treated with IV levofloxacin and metronidazole and clear liquid diet. Surgery was consulted and medical management was recommended. She gradually improved to the point where she was tolerating a solid diet. Leukocytosis improved and abdominal pain resolved. She was discharged home with 6 more days of antibiotic treatment and should follow up with her PCP in 1 week and the surgeon in 2 weeks. Time Spent with Patient Time attestation: Total time spent providing and/or coordinating discharge services: 35 Discharge coordination time: Greater than 30 minutes Quality: Stroke Does the patient have a stroke diagnosis?: No Physical Exam Vital Signs: Vital Signs: Last Vital Signs Temp 98.3 F 11/11/20 11:17 Pulse 76 11/11/20 11:17 Resp 16 11/11/20 11:17 BP 110/69 11/11/20 11:17 Pulse Ox 96 11/11/20 11:17 Body Mass Index 32.8 Gen: in no acute distress HEENT: sclera anicteric, moist mucus membranes Neck: supple Lungs: clear to auscultation bilaterally Heart: regular rate and rhythm, no murmurs Abd: soft, non-tender, no rebound/guarding Ext: no edema Skin: warm/well-perfused Neuro: alert and oriented x3, no focal findings Psych: appropriate affect DS: Data Data Completed and Pending Completed studies during hospitalization [Text1]: Laboratory Results WBC 11.6 X10*3/uL (4.8-10.8) H 11/11/20 04:57 RBC 4.08 X10*6/uL (4.20-5.50) L 11/11/20 04:57 Hgb 10.6 g/dl (12.0-16.0) L 11/11/20 04:57 Hct 34.4 % (37-47) L 11/11/20 04:57 MCV 84.3 fL (80-98) 11/11/20 04:57 MCH 26.0 pg (27.0-33.0) L 11/11/20 04:57 MCHC 30.8 g/dl (31.0-35.0) L 11/11/20 04:57 RDW 15.0 % (11.0-16.0) 11/11/20 04:57 Plt Count 308 X10*3/uL (160-400) 11/11/20 04:57 MPV 10.1 fL (9.4-12.3) 11/11/20 04:57 Immature Gran % (Auto) 0.4 % (0.0-0.4) 11/07/20 16:05 Neut % (Auto) 71.6 % (45-73) 11/07/20 16:05 Lymph % (Auto) 20.2 % (20-40) 11/07/20 16:05 [place] % (Auto) 5.5 % (2-11) 11/07/20 16:05 Eos % (Auto) 1.9 % (0-4) 11/07/20 16:05 Baso % (Auto) 0.4 % (0-2) 11/07/20 16:05 Lymph # (Auto) 3.8 X10*3/uL (1.2-4.9) 11/07/20 16:05 [place]ies # (Auto) 1.0 X10*3/uL (0.1-1.2) 11/07/20 16:05 Eos # (Auto) 0.4 X10*3/uL (0.0-0.4) 11/07/20 16:05 Baso # (Auto) 0.1 X10*3/uL (0.0-0.2) 11/07/20 16:05 Abs Immat Gran (auto) 0.08 X10*3/uL (0.00-0.03) H 11/07/20 16:05 Absolute Neuts (auto) 13.6 X10*3/uL (2.0-8.3) H 11/07/20 16:05 Absolute Nucleated RBC 0.000 X10*3/uL (0.0-0.012) 11/11/20 04:57 Nucleated RBC % (auto) 0.0 /100WBC (0.0-0.2) 11/11/20 04:57 Sodium 141 mmol/L (135-145) 11/11/20 04:57 Potassium 3.7 mmol/L (3.3-5.1) 11/11/20 04:57 Chloride 111 mmol/L (96-108) H 11/11/20 04:57 Carbon Dioxide 21 mmol/L (22-29) L 11/11/20 04:57 Anion Gap 13 (12-20) 11/11/20 04:57 BUN 7 mg/dL (9-16) L 11/11/20 04:57 Creatinine 0.79 mg/dL (0.5-1.4) 11/11/20 04:57 Estim Creat Clear Calc 78.6 11/11/20 04:57 Estimated GFR > 60 11/11/20 04:57 POC Glucose 151 mg/dL (60-115) H 11/11/20 11:19 Random Glucose 102 mg/dL (60-115) 11/11/20 04:57 Lactic Acid 1.2 mmol/L (0.5-2.0) 11/07/20 16:57 Calcium 8.7 mg/dL (8.4-10.2) 11/11/20 04:57 Total Bilirubin 0.4 mg/dL (0.0-1.0) 11/07/20 16:03 Direct Bilirubin 0.2 mg/dL (0.0-0.5) 11/07/20 16:03 AST 9 U/L (5-31) 11/07/20 16:03 ALT 12 U/L (0-31) 11/07/20 16:03 Alkaline Phosphatase 126 U/L (39-117) H 11/07/20 16:03 C-Reactive Protein 1.30 mg/dL (< or = 0.50) H 11/10/20 05:14 Total Protein 7.7 g/dL (6.5-8.0) 11/07/20 16:03 Albumin 4.2 g/dL (3.5-5.0) 11/07/20 16:03 Lipase 13 U/L (8-78) 11/07/20 16:03 Urine Color YELLOW 11/07/20 16:03 Urine Appearance CLEAR 11/07/20 16:03 Urine pH 6.0 (5.0-8.0) 11/07/20 16:03 Ur Specific [place] <= 1.005 (1.005-1.025) 11/07/20 16:03 Urine Protein NEG MG/DL (NEG-TRACE) 11/07/20 16:03 Urine Glucose (UA) >=1000 MG/DL (NEG) H 11/07/20 16:03 Urine Ketones NEG MG/DL (NEG) 11/07/20 16:03 Urine Blood NEG (NEG) 11/07/20 16:03 Urine Nitrite NEG (NEG) 11/07/20 16:03 Ur Leukocyte Esterase NEG (NEG) 11/07/20 16:03 Urine RBC 0 /HPF (0) 11/07/20 16:03 Urine WBC 0 /HPF (0-4) 11/07/20 16:03 Ur Squamous Epith Cells 2+ /LPF 11/07/20 16:03 Talc Crystals TRACE /LPF 11/07/20 16:03 Urine Bacteria 1+ /LPF 11/07/20 16:03 Urine Yeast TRACE /HPF 11/07/20 16:03 Urine Test NEGATIVE (NEGATIVE) 11/07/20 16:03 COVID-19 (MARCI) Negative (Negative) 11/07/20 16:57 COVID-19 Clin Com See Note 11/07/20 16:57 Impressions Abdomen/Pelvis CT 11/07/20 15:17 IMPRESSION: Mild diverticulitis of the distal left/proximal sigmoid colon. Multiple abdominal wall hernias including large lower midline abdominal wall hernia containing small bowel and fat and right lateral abdominal wall or spigelian hernia containing small bowel and fat.. No evidence of obstruction. Small left renal stone. Chest X-Ray 11/10/20 13:23 IMPRESSION: No acute findings Discharge Plan Discharge Patient Disposition: Home, Self-Care Discharge Diagnosis: sepsis from diverticulitis Referrals: Ramses Rabago MD [Physician] - 1 Week Venancio Lomeli NP [Primary Care Provider] - 1 Week Discharge Medications: New levofloxacin 750 mg tablet 750 mg PO DAILY Qty: 6 RF: 0 metronidazole 500 mg tablet 500 mg PO TID Qty: 18 RF: 0 hydrocodone-acetaminophen 5-325 mg tablet 1 tab PO Q8H PRN (Reason: severe pain) Qty: 10 RF: 0 Continued glipizide 2.5 mg tablet extended release 24hr 1 tab PO DAILY RF: 0 zileuton 600 mg tablet, ER multiphase 12 hr 2 tab PO BID RF: 0 glimepiride 2 mg tablet 2 mg PO BID@1400,2100 RF: 0 Emgality Pen 120 mg/mL Pen Injector 120 mg SUBCUT Q4W RF: 0 lisinopril 2.5 mg Tablet 2.5 mg PO DAILY RF: 0 Spiriva with HandiHaler 18 mcg Capsule, W/Inhalation Device 1 cap INHALATION DAILY RF: 0 buspirone 15 mg tablet 1 tab PO DAILY RF: 0 atorvastatin 20 mg tablet 1 tab PO DAILY RF: 0 glimepiride 4 mg tablet 4 mg PO QAM RF: 0 hydroxyzine HCl 25 mg tablet 1 tab PO DAILY RF: 0 pregabalin 150 mg capsule 1 cap PO DAILY RF: 0 Jardiance 10 mg tablet 1 tab PO DAILY RF: 0 tizanidine 2 mg tablet 1 tab PO TID RF: 0 sumatriptan succinate 100 mg tablet 100 mg PO DAILY RF: 0 sucralfate 1 gram tablet 1 tab PO QIDWMHS RF: 0 ondansetron HCl 4 mg tablet 1 tab PO Q8H RF: 0 omeprazole 20 mg capsule,delayed release(DR/EC) 2 cap PO BID RF: 0 aspirin 81 mg Tablet 81 mg PO DAILY RF: 0 bupropion HCl 150 mg tablet extended release 24 hr 1 tab PO QAM RF: 0 calcium carbonate-vitamin D3 600 mg(1,500mg) -400 unit tablet 1 tab PO BID RF: 0 budesonide-formoterol [Symbicort] 80-4.5 mcg/actuation HFA aerosol inhaler 2 puff PO BID RF: 0 levocetirizine 5 mg tablet 1 tab PO BEDTIME RF: 0 Discharge Orders: Discharge Order (Routine); Ordered 11/11/20 Ordered By: Veronika Penn Diet: diabetic diet Activity on Discharge: As tolerated Stand Alone Forms: Patient Portal Discharge page Care Plan Goals: treat diverticulitis, avoid future episodes Health Concerns: recurrent diverticulitis Plan of Treatment: take antibiotics for 6 days: levofloxacin 750 mg daily metronidazole 500 mg three times a day [place] as needed for severe pain; acetaminophen for moderate pain see your primary care doctor in 1 week see the surgeon in 2 weeks Assessment: as above
--- NOTE | 2020-11-11 13:10 | MHC.CM.PN ---
PATIENT IS DISCHARGED HOME - SELF CARE. SHE HAS TRANSPORTATION HOME. RN AWARE OF PLAN. IMM 11/10 IN CHART
== END 2020-11-11 14:26 | disposition home or self-care (01) | DRG 872 ==
LOC: HO.ED 17:04 → HO.EDOVER 18:12 → HO.IMC 23:33 → HO.S3 11-11 05:56
PROVIDERS: Admitting Provider Family Medicine; Emergency Provider Emergency Medicine; PCP Nurse Practitioner Family; Visit Provider Family Medicine
DX: A41.9 Sepsis, unspecified organism (principal); K57.32 Diverticulitis of large intestine without perforation or abscess without bleeding; F32.9 Major depressive disorder, single episode, unspecified; G89.29 Other chronic pain; I10 Essential (primary) hypertension; E11.9 Type 2 diabetes mellitus without complications; J45.909 Unspecified asthma, uncomplicated; G43.909 Migraine, unspecified, not intractable, without status migrainosus; Z20.822 Contact with and (suspected) exposure to COVID-19; Z88.0 Allergy status to penicillin; Z79.82 Long term (current) use of aspirin; Z79.84 Long term (current) use of oral hypoglycemic drugs; Z79.899 Other long term (current) drug therapy
CPT/HCPCS: 36415; 71045; 74176; 80048; 80076; 81001; 81025; 82947; 83605; 83690; 85025; 85027; 86140; 87040; 87635; 94640; 99285; J1170; J1650; J1956; J2270; J2405; J2550

== ENCOUNTER 2020-11-17 15:42 | Inpatient (IN) | payer MEDICARE, MEDICAID, SELFPAY ==
--- NOTE | ~2020-11-17 | CT_ITS ---
EXAMINATION: CT ABDOMEN AND PELVIS WITH CONTRAST CLINICAL INFORMATION: Abdominal pain COMPARISON: 11/07/2020 TECHNIQUE: Multidetector volumetric images were obtained from the superior aspect of the liver through the pubic symphysis following administration 85 mL of Omnipaque 350 intravenous contrast. Sagittal and coronal reformatted images were obtained on the technologist's workstation. Oral contrast: No This CT examination was performed using dose optimization techniques as appropriate, variously including the following: *Automated exposure control *Adjustment of mA and/or kV according to patient size (this includes techniques or standardized protocols for targeted exams where dose is matched to indication/reason for exam; i.e. extremities or head) *Use of iterative reconstruction technique DLP: 669 mGy-cm FINDINGS: LUNG BASES: The visualized lung bases are unremarkable. LIVER, GALLBLADDER, AND BILIARY TREE: The liver is normal in size, shape, and attenuation. No focal hepatic lesion or biliary ductal dilatation is present. The gallbladder has been removed. PANCREAS: Unremarkable. SPLEEN: Unremarkable. ADRENAL GLANDS: Unremarkable. KIDNEYS AND URETERS: The kidneys are normal in size, shape, and attenuation. No hydronephrosis or hydroureter seen. No perinephric stranding. A punctate nonobstructive intrarenal calculus is again noted in the mid left kidney. No ureteral calculus is seen. There is an 8 mm cortical cyst posteriorly in the mid right kidney which remains stable. BLADDER: Unremarkable. GASTROINTESTINAL TRACT: There is been previous resection and anastomosis of the sigmoid colon. There is mild diverticulosis in the distal descending and proximal sigmoid colon. Previously demonstrated pericolonic inflammation this region has improved and nearly resolved. There is no perforation or abscess. No bowel dilatation or other focal bowel inflammation is seen. There is evidence of a small bowel anastomosis in the right lower quadrant. The cecum is located in the pelvis. The appendix is normal. ABDOMINAL WALL: There are midline ventral hernias containing fat. There is an infraumbilical hernia containing fat and loops of small bowel without bowel obstruction or inflammation. There is also a small right lateral lower abdominal wall hernia containing fat and small bowel, also without inflammation or bowel obstruction. LYMPH NODES: No adenopathy is seen. VASCULAR: Unremarkable. PELVIC VISCERA: The uterus and ovaries have been removed. OSSEOUS STRUCTURES: Unremarkable. CT/CT abdomen pelvis w con IMPRESSION: Mild colonic diverticulosis with evidence of improving resolving diverticulitis in the proximal sigmoid colon in the left pelvis. No other acute process is seen in the abdomen or pelvis. Anterior abdominal wall hernias are seen which contain bowel, but there is no associated inflammation or obstruction.
[2020-11-17 15:48] VITALS: BP 117/60; PULSE 75; RESP 18; TEMP 36.9; O2SAT 95
[2020-11-17 15:53] VITALS: BP 117/60; PULSE 73; RESP 18; TEMP 36.9; O2SAT 96; BMI 33.8
--- NOTE | 2020-11-17 16:18 | ECG_ITS ---
Test Reason : ABDOMINAL PAIN Blood Pressure : / mmHG Vent. Rate : 073 BPM Atrial Rate : 073 BPM P-R Int : 150 ms QRS Dur : 080 ms QT Int : 392 ms P-R-T Axes : 026 023 019 degrees QTc Int : 431 ms Normal sinus rhythm Normal ECG When compared with ECG of 10-FEB-2011 14:28, No significant change was found Referred By: Delmy Walter Electronically Signed By:NICOLLE CROSS MD
--- NOTE | 2020-11-17 16:23 | ED_ITS ---
HPI - Abdominal Pain General Chief Complaint: Abdominal Pain Stated Complaint: abd pain Time Seen by Provider: 11/17/20 21:01 Source: patient Mode of arrival: ambulatory Limitations: no limitations History of Present Illness HPI narrative: 60-year-old female with past medical history of diabetes, high blood pressure, hyperlipidemia, peptic ulcer disease, asthma, migraines, recently admitted to this facility for diverticulitis on 11/07/2020 and discharged with p.o. antibiotics Levaquin. She presents with 10 abdominal pain that has increased from manageable to severe since her discharge on Thursday. She has not been able to eat or drink for 2 days, and vomits everything she takes in. She feels weak, fatigued, and has subjective fevers and chills. Related Data Home Medications Medication Instructions Recorded Confirmed Jardiance 1 tab PO DAILY 04/17/20 11/17/20 aspirin 81 mg PO DAILY 04/17/20 11/17/20 atorvastatin 1 tab PO DAILY 04/17/20 11/17/20 budesonide-formoterol [Symbicort] 2 puff PO BID 04/17/20 11/17/20 bupropion HCl 1 tab PO QAM 04/17/20 11/17/20 calcium carbonate-vitamin D3 1 tab PO BID 04/17/20 11/17/20 glimepiride 4 mg PO QAM 04/17/20 11/17/20 hydroxyzine HCl 1 tab PO DAILY 04/17/20 11/17/20 levocetirizine 1 tab PO BEDTIME 04/17/20 11/17/20 omeprazole 2 cap PO BID 04/17/20 11/17/20 ondansetron HCl 1 tab PO Q8H 04/17/20 11/17/20 pregabalin 1 cap PO DAILY 04/17/20 11/17/20 sucralfate 1 tab PO QIDWMHS 04/17/20 11/17/20 sumatriptan succinate 100 mg PO DAILY 04/17/20 11/17/20 tizanidine 1 tab PO TID 04/17/20 11/17/20 blood sugar diagnostic #10 ea 09/28/20 11/17/20 lancets 28 gauge #100 ea 09/28/20 11/17/20 albuterol sulfate 90 mcg/actuation 2 puff INHALATION Q4H PRN 10/09/20 11/17/20 aerosol inhaler Emgality Pen 120 mg SUBCUT Q4W 11/07/20 11/17/20 Spiriva with HandiHaler 1 cap INHALATION DAILY 11/07/20 11/17/20 buspirone 1 tab PO DAILY 11/07/20 11/17/20 glimepiride 2 mg PO BID@1400,2100 11/07/20 11/17/20 glipizide 1 tab PO DAILY 11/07/20 11/17/20 lisinopril 2.5 mg PO DAILY 11/07/20 11/17/20 zileuton 2 tab PO BID 11/07/20 11/17/20 Previous Rx's Medication Instructions Recorded hydrocodone-acetaminophen 1 tab PO Q8H PRN #10 tab 11/11/20 levofloxacin 750 mg PO DAILY #6 tab 11/11/20 metronidazole 500 mg PO TID #18 tab 11/11/20 Allergies Allergy/AdvReac Type Severity Reaction Status Date / Time Penicillins [PENICILLINS] Allergy Severe RASH Verified 10/09/20 13:08 gabapentin [GABAPENTIN] Allergy Mild ABD PAIN Verified 10/09/20 13:08 esomeprazole [Nexium] Allergy Unknown rash Verified 10/09/20 13:08 famotidine [From PEPCID] Allergy Unknown UPSET Verified 10/09/20 13:08 STOMACH lansoprazole [Prevacid] Allergy Unknown rash Verified 10/09/20 13:08 penicillin V Allergy Unknown stomach Verified 10/09/20 13:08 pains From NEXIUM Allergy Unknown RASH Uncoded 01/12/20 14:52 Review of Systems Review of Systems Constitutional: No Weight loss, Positive Fever, positive Chills, No Night Sweats, No Fatigue, No Malaise ENT/Mouth: No Hearing loss, No Ear Pain, No Nasal Congestion, No Sinus Pain, No Hoarseness, No sore throat, No Rhinorrhea, No Swallowing Difficulty Eyes: No Eye Pain, No Swelling, No Redness, No Foreign Body, No Discharge, No Vision Changes Cardiovascular: No Chest Pain, No SOB, No Dyspnea on Exertion, No Orthopnea, No Edema, No Palpitations Respiratory: No Cough, No Sputum, No Wheezing, No Smoke Exposure, No Dyspnea Gastrointestinal: Positive Nausea, Positive Vomiting, positive Diarrhea, positive abdominal Pain, No Hematochezia, No Melena Genitourinary: no irregular bleeding, No Dysuria, No Urinary Frequency, No Hematuria, No Urinary Incontinence, No Urgency, No Flank Pain, No Urinary Flow Changes, No Hesitancy Musculoskeletal: No joint pain, No Myalgias, No Joint Swelling Skin: No Skin Lesions, No rash Neuro: No Weakness, No Numbness, No Paresthesias, No Loss of Consciousness, No Dizziness, No Headache Psych: No Anxiety/Panic, No Depression, No SI/HI/AH/VH, No Social Issues Heme/Lymph: No Bruising, No Bleeding,No Lymphadenopathy Endocrine: No Polyuria, No Polydipsia, No Temperature Intolerance Yes all other systems are reviewed and are negative Physical Exam Vital Signs: Vital Signs: Last Vital Signs Temp 98.6 F 11/17/20 21:58 Pulse 87 11/17/20 21:58 Resp 16 11/17/20 21:58 BP 108/48 L 11/17/20 21:58 Pulse Ox 93 11/17/20 21:58 Body Mass Index 33.8 Appearance: Alert. Oriented X3. moderate distress. Eyes: Pupils equal, round and reactive to light. ENT: Pharynx normal. Neck: Normal inspection. Neck supple. CVS: Normal heart rate and rhythm. Pulses normal. Respiratory: No respiratory distress. Breath sounds normal. Abdomen: Soft and diffusely tender with rebound. Skin: Skin warm and dry. Normal skin color. Normal skin turgor. Extremities: No lower extremity edema. Neuro: No motor deficit. No sensory deficit. Course Course Course Narrative: 60-year-old female presents with abdominal pain nausea vo miting subjective fevers and chills, recent admission for diverticulitis, last dose of p.o. antibiotics this morning Levaquin. Patient's abdomen is tender with rebound, question perforation or abscess. Will order labs, CT scan of abdomen and pelvis with contrast. Will give Zosyn and resuscitate with fluids at this time. Will give antiemetics and pain management. White count is 17, lactate 1.2, patient is afebrile, normotensive, without tachycardia. Patient is not septic at this time. CT scan of abdomen and pelvis indicates diverticulitis which is improving, and 2 small-bowel hernias. I did discuss this case with Dr. Leos, who deferred to Surgical. 8:04 p.m., discussion with on-call surgery, plan to admit Consultations Consultation #1: [place] Time: 19:54 Consultation #2: Candie Time: 20:04 MDM - Abdominal Pain Differential Diagnosis Differential diagnosis: Likely abdominal pain, acute appendicitis, bowel perforation, diverticulitis, mesenteric ischemia, pancreatitis, peptic ulcer disease and small bowel obstruction Medical Records Attestation: I reviewed the patient's medical records. Lab Data Attestation: I reviewed the patient's lab results. Result diagrams: 11/17/20 16:49 11/17/20 16:49 Labs: Lab Results 11/17/20 11/17/20 11/17/20 Range/Units 16:49 16:49 16:49 WBC 17.0 H (4.8-10.8) X10*3/uL RBC 4.38 (4.20-5.50) X10*6/uL Hgb 11.2 L (12.0-16.0) g/dl Hct 36.6 L (37-47) % MCV 83.6 (80-98) fL MCH 25.6 L (27.0-33.0) pg MCHC 30.6 L (31.0-35.0) g/dl RDW 15.8 (11.0-16.0) % Plt Count 382 (160-400) X10*3/uL MPV 10.9 (9.4-12.3) fL Immature Gran % (Auto) 0.6 H (0.0-0.4) % Neut % (Auto) 75.1 H (45-73) % Lymph % (Auto) 16.3 L (20-40) % [place] % (Auto) 5.5 (2-11) % Eos % (Auto) 2.0 (0-4) % Baso % (Auto) 0.5 (0-2) % Lymph # (Auto) 2.8 (1.2-4.9) X10*3/uL [place] # (Auto) 0.9 (0.1-1.2) X10*3/uL Eos # (Auto) 0.3 (0.0-0.4) X10*3/uL Baso # (Auto) 0.1 (0.0-0.2) X10*3/uL Abs Immat Gran (auto) 0.10 H (0.00-0.03) X10*3/uL Absolute Neuts (auto) 12.7 H (2.0-8.3) X10*3/uL Absolute Nucleated RBC 0.000 (0.0-0.012) X10*3/uL Nucleated RBC % (auto) 0.0 (0.0-0.2) /100WBC PT 14.5 H (9.9-13.0) SEC INR 1.3 H (0.9-1.1) Sodium 140 (135-145) mmol/L Potassium 3.8 (3.3-5.1) mmol/L Chloride 107 (96-108) mmol/L Carbon Dioxide 23 (22-29) mmol/L Anion Gap 14 (12-20) BUN 9 (9-16) mg/dL Creatinine 0.94 (0.5-1.4) mg/dL Estim Creat Clear Calc 67.2 Estimated GFR > 60 Random Glucose 72 (60-115) mg/dL Lactic Acid (0.5-2.0) mmol/L Calcium 9.2 (8.4-10.2) mg/dL Magnesium (1.6-2.6) mg/dL Total Bilirubin 0.2 (0.0-1.0) mg/dL Direct Bilirubin < 0.2 (0.0-0.5) mg/dL AST 11 (5-31) U/L ALT 7 (0-31) U/L Alkaline Phosphatase 106 (39-117) U/L Troponin I High Sens (<3.5-17.0) ng/L Total Protein 7.0 (6.5-8.0) g/dL Albumin 3.9 (3.5-5.0) g/dL Lipase 14 (8-78) U/L Urine Color Urine Appearance Urine pH (5.0-8.0) Ur Specific [place] (1.005-1.025) Urine Protein (NEG-TRACE) MG/DL Urine Glucose (UA) (NEG) MG/DL Urine Ketones (NEG) MG/DL Urine Blood (NEG) Urine Nitrite (NEG) Ur Leukocyte Esterase (NEG) 11/17/20 11/17/20 11/17/20 Range/Units 16:49 16:49 16:49 WBC (4.8-10.8) X10*3/uL RBC (4.20-5.50) X10*6/uL Hgb (12.0-16.0) g/dl Hct (37-47) % MCV (80-98) fL MCH (27.0-33.0) pg MCHC (31.0-35.0) g/dl RDW (11.0-16.0) % Plt Count (160-400) X10*3/uL MPV (9.4-12.3) fL Immature Gran % (Auto) (0.0-0.4) % Neut % (Auto) (45-73) % Lymph % (Auto) (20-40) % [place] % (Auto) (2-11) % Eos % (Auto) (0-4) % Baso % (Auto) (0-2) % Lymph # (Auto) (1.2-4.9) X10*3/uL [place] # (Auto) (0.1-1.2) X10*3/uL Eos # (Auto) (0.0-0.4) X10*3/uL Baso # (Auto) (0.0-0.2) X10*3/uL Abs Immat Gran (auto) (0.00-0.03) X10*3/uL Absolute Neuts (auto) (2.0-8.3) X10*3/uL Absolute Nucleated RBC (0.0-0.012) X10*3/uL Nucleated RBC % (auto) (0.0-0.2) /100WBC PT (9.9-13.0) SEC INR (0.9-1.1) Sodium (135-145) mmol/L Potassium (3.3-5.1) mmol/L Chloride (96-108) mmol/L Carbon Dioxide (22-29) mmol/L Anion Gap (12-20) BUN (9-16) mg/dL Creatinine (0.5-1.4) mg/dL Estim Creat Clear Calc Estimated GFR Random Glucose (60-115) mg/dL Lactic Acid 1.2 (0.5-2.0) mmol/L Calcium (8.4-10.2) mg/dL Magnesium 2.1 (1.6-2.6) mg/dL Total Bilirubin (0.0-1.0) mg/dL Direct Bilirubin (0.0-0.5) mg/dL AST (5-31) U/L ALT (0-31) U/L Alkaline Phosphatase (39-117) U/L Troponin I High Sens < 3.5 (<3.5-17.0) ng/L Total Protein (6.5-8.0) g/dL Albumin (3.5-5.0) g/dL Lipase (8-78) U/L Urine Color Urine Appearance Urine pH (5.0-8.0) Ur Specific [place] (1.005-1.025) Urine Protein (NEG-TRACE) MG/DL Urine Glucose (UA) (NEG) MG/DL Urine Ketones (NEG) MG/DL Urine Blood (NEG) Urine Nitrite (NEG) Ur Leukocyte Esterase (NEG) 11/17/20 Range/Units 16:49 WBC (4.8-10.8) X10*3/uL RBC (4.20-5.50) X10*6/uL Hgb (12.0-16.0) g/dl Hct (37-47) % MCV (80-98) fL MCH (27.0-33.0) pg MCHC (31.0-35.0) g/dl RDW (11.0-16.0) % Plt Count (160-400) X10*3/uL MPV (9.4-12.3) fL Immature Gran % (Auto) (0.0-0.4) % Neut % (Auto) (45-73) % Lymph % (Auto) (20-40) % [place] % (Auto) (2-11) % Eos % (Auto) (0-4) % Baso % (Auto) (0-2) % Lymph # (Auto) (1.2-4.9) X10*3/uL [place] # (Auto) (0.1-1.2) X10*3/uL Eos # (Auto) (0.0-0.4) X10*3/uL Baso # (Auto) (0.0-0.2) X10*3/uL Abs Immat Gran (auto) (0.00-0.03) X10*3/uL Absolute Neuts (auto) (2.0-8.3) X10*3/uL Absolute Nucleated RBC (0.0-0.012) X10*3/uL Nucleated RBC % (auto) (0.0-0.2) /100WBC PT (9.9-13.0) SEC INR (0.9-1.1) Sodium (135-145) mmol/L Potassium (3.3-5.1) mmol/L Chloride (96-108) mmol/L Carbon Dioxide (22-29) mmol/L Anion Gap (12-20) BUN (9-16) mg/dL Creatinine (0.5-1.4) mg/dL Estim Creat Clear Calc Estimated GFR Random Glucose (60-115) mg/dL Lactic Acid (0.5-2.0) mmol/L Calcium (8.4-10.2) mg/dL Magnesium (1.6-2.6) mg/dL Total Bilirubin (0.0-1.0) mg/dL Direct Bilirubin (0.0-0.5) mg/dL AST (5-31) U/L ALT (0-31) U/L Alkaline Phosphatase (39-117) U/L Troponin I High Sens (<3.5-17.0) ng/L Total Protein (6.5-8.0) g/dL Albumin (3.5-5.0) g/dL Lipase (8-78) U/L Urine Color STRAW Urine Appearance CLEAR Urine pH 6.0 (5.0-8.0) Ur Specific [place] <= 1.005 (1.005-1.025) Urine Protein NEG (NEG-TRACE) MG/DL Urine Glucose (UA) 250 H (NEG) MG/DL Urine Ketones NEG (NEG) MG/DL Urine Blood NEG (NEG) Urine Nitrite NEG (NEG) Ur Leukocyte Esterase NEG (NEG) Imaging Data CT scan - abdomen: Attestation: I personally reviewed and interpreted this imaging study as follows: Radiologist's impression: FINDINGS: LUNG BASES: The visualized lung bases are unremarkable. LIVER, GALLBLADDER, AND BILIARY TREE: The liver is normal in size, shape, and attenuation. No focal hepatic lesion or biliary ductal dilatation is present. The gallbladder has been removed. PANCREAS: Unremarkable. SPLEEN: Unremarkable. ADRENAL GLANDS: Unremarkable. KIDNEYS AND URETERS: The kidneys are normal in size, shape, and attenuation. No hydronephrosis or hydroureter seen. No perinephric stranding. A punctate nonobstructive intrarenal calculus is again noted in the mid left kidney. No ureteral calculus is seen. There is an 8 mm cortical cyst posteriorly in the mid right kidney which remains stable. BLADDER: Unremarkable. GASTROINTESTINAL TRACT: There is been previous resection and anastomosis of the sigmoid colon. There is mild diverticulosis in the distal descending and proximal sigmoid colon. Previously demonstrated pericolonic inflammation this region has improved and nearly resolved. There is no perforation or abscess. No bowel dilatation or other focal bowel inflammation is seen. There is evidence of a small bowel anastomosis in the right lower quadrant. The cecum is located in the pelvis. The appendix is normal. ABDOMINAL WALL: There are midline ventral hernias containing fat. There is an infraumbilical hernia containing fat and loops of small bowel without bowel obstruction or inflammation. There is also a small right lateral lower abdominal wall hernia containing fat and small bowel, also without inflammation or bowel obstruction. LYMPH NODES: No adenopathy is seen. VASCULAR: Unremarkable. PELVIC VISCERA: The uterus and ovaries have been removed. OSSEOUS STRUCTURES: Unremarkable. IMPRESSION: Mild colonic diverticulosis with evidence of improving resolving diverticulitis in the proximal sigmoid colon in the left pelvis. No other acute process is seen in the abdomen or pelvis. Anterior abdominal wall hernias are seen which contain bowel, but there is no associated inflammation or obstruction. ECG Data Attestation: I personally reviewed and interpreted this ECG as follows: ECG interpretation date: 11/17/20 ECG interpretation time: 16:36 Prior ECG tracings: available for review Interpretation: Vent. rate 73 BPM GA interval 150 ms QRS duration 80 ms QT/QTc 392/431 ms P-R-T axes 26 23 19 Normal sinus rhythm Normal ECG When compared with ECG of 10-FEB-2011 14:28, No significant change was found Critical Care Time Critical Care Time Critical Care Time: Yes Total Critical Care Time: 65 Attestation: I have personally provided critical care time exclusive of time spent on separately billable procedures. Time includes review of laboratory data, radiology results, discussion with consultants, and monitoring for potential decompensation. Interventions were performed as documented. Discharge Plan Discharge Clinical Impression: Diverticulitis, Hernia of small intestine Patient Disposition: Admitted As Inpatient [facility] Past Medical History Attestation statement: The following information was validated with the patient. Source: old records reviewed Medical History Asthma Chronic back pain Depression Diabetes 1.5, managed as type 2 Diverticulitis HTN (hypertension) Migraines Surgical History History of cholecystectomy History of hysterectomy History of partial colectomy Social History Social History Household Members: Significant Other Housing: Apartment Do you presently have visiting nurse or other home services: No Alcohol intake: never Patient Tobacco Use Status: Never used Tobacco Second Hand Smoke Exposure: Yes Use of substances other than those prescribed or required for medical reasons: No Advance Directives: No Advance Directives Information Provided: No Advance Directives Date on File: 10/01/20 Patient : No service: No Current occupational status: disabled
[2020-11-17] MEDS: oxyCODONE HCl Immed Release 5 MG TABLET PO (16:36)
[2020-11-17] MEDS: 0.9 % Sodium Chloride 1,000 ML 999 ML IVCONT (16:37)
[2020-11-17 16:56] LABS: MANUAL DIFF FLAG NO
[2020-11-17 16:58] LABS: Basophils Absolute Auto 0.1 X10*3/uL (0.0-0.2); Basophils Percent Auto 0.5 % (0-2); Eosinophils Absolute Auto 0.3 X10*3/uL (0.0-0.4); Hematocrit 36.6 % (37-47); Hemoglobin 11.2 g/dl (12.0-16.0); Imm Gran Pct Auto 0.6 % (0.0-0.4); Lymphocytes Absolute Auto 2.8 X10*3/uL (1.2-4.9); Lymphocytes Percent Auto 16.3 % (20-40); Mean Corpuscular HGB Conc 30.6 g/dl (31.0-35.0); Mean Corpuscular Hemoglobin 25.6 pg (27.0-33.0); Mean Corpuscular Volume 83.6 fL (80-98); Mean Platelet Volume 10.9 fL (9.4-12.3); Monocytes Absolute Auto 0.9 X10*3/uL (0.1-1.2); Monocytes Percent Auto 5.5 % (2-11); Neutrophils Absolute Auto 12.7 X10*3/uL (2.0-8.3); Neutrophils Percent Auto 75.1 % (45-73); Platelet Count 382 X10*3/uL (160-400); Red Blood Count 4.38 X10*6/uL (4.20-5.50); Red Cell Distribution Width 15.8 % (11.0-16.0)
[2020-11-17 17:04] LABS: INTERNATIONAL NORM RATIO 1.3 (0.9-1.1); Prothrombin Time 14.5 SEC (9.9-13.0)
[2020-11-17 17:07] LABS: Glucose Urine UA 250 MG/DL (NEG); Leukocyte Esterase Urine NEG (NEG); Nitrite Urine NEG (NEG); Specific Gravity - Urine <= 1.005 (1.005-1.025); Urine Blood NEG (NEG); Urine Ketones NEG (NEG); Urine Protein NEG (NEG-TRACE)
[2020-11-17 17:09] LABS: Appearance Urine CLEAR; Color Urine STRAW
[2020-11-17 17:15] LABS: Lactic Acid 1.2 mmol/L (0.5-2.0)
[2020-11-17 17:19] LABS: Magnesium 2.1 mg/dL (1.6-2.6)
[2020-11-17 17:20] LABS: Alanine Aminotransferase 7 U/L (0-31); Albumin Level 3.9 g/dL (3.5-5.0); Alkaline Phosphatase 106 U/L (39-117); Anion Gap 14 (12-20); Aspartate Amino Transferase 11 U/L (5-31); Bilirubin Direct < 0.2 mg/dL (0.0-0.5); Bilirubin Total 0.2 mg/dL (0.0-1.0); Blood Urea Nitrogen 9 mg/dL (9-16); Calcium 9.2 mg/dL (8.4-10.2); Carbon Dioxide 23 mmol/L (22-29); Chloride 107 mmol/L (96-108); Creatinine Clr Calc Pharmacy 67.2; Estimated Glomerular Filt Rate > 60; Glucose Random 72 mg/dL (60-115); Lipase 14 U/L (8-78); Potassium 3.8 mmol/L (3.3-5.1); Sodium 140 mmol/L (135-145)
[2020-11-17 17:23] LABS: Troponin-I High Sensitivity < 3.5 ng/L (<3.5-17.0)
[2020-11-17 17:43] VITALS: RESP 16
[2020-11-17] MEDS: HYDROmorphone HCl 2 MG/ML VIAL IVPUSH ×2 (17:43→21:07)
[2020-11-17] MEDS: Piperacillin Sodium/Tazobactam 4.5 GM in 0.9 % Sodium Chloride 100 ML IV (17:43)
--- NOTE | 2020-11-17 17:44 | PC.NURSE ---
IV FROM EMS INFILTRATED. IV PLACED BY JEAN-PIERRE SAMS R AC 20G
[2020-11-17] MEDS: iohexoL 350 MG/ML 100 ML INFUS..BTL IV (18:08)
[2020-11-17] MEDS: diphenhydrAMINE HCL 50 MG/ML VIAL 25 MG IVPUSH ×2 (18:27→22:44)
[2020-11-17] MEDS: Metoclopramide HCl 10 MG/2 ML VIAL IVPUSH (18:27)
--- NOTE | 2020-11-17 18:31 | PC.NURSE ---
pt reports continued nausea- medicated per emar. 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
[2020-11-17 18:32] VITALS: BP 115/43; PULSE 70; RESP 18; TEMP 36.8; O2SAT 97
[2020-11-17] MEDS: metroNIDAZOLE 500 MG TABLET PO (18:48)
[2020-11-17 21:03] VITALS: BP 108/48; PULSE 87; RESP 16; TEMP 37; O2SAT 93
[2020-11-17 21:58] VITALS: BP 108/48; PULSE 87; RESP 16; TEMP 37; O2SAT 93
[2020-11-17] MEDS: 0.9 % Sodium Chloride 1,000 ML 100 ML IVCONT (22:06)
--- NOTE | 2020-11-17 22:13 | PM.HPGS ---
Assessment and Plan (1) Diverticulitis: Status: Acute pt is a 60 year old female, DM, Htn, Asthma with recurrent sig diverticulitis despite remote sig colectomy - recent admission did well but now worsened on levaquin and flagyl po meds. ct scan not showing any complication, wbc 17 and pt with right lower quad pain but no peritoneal signs. plan for conservative care, npo, ivf, iv antibx, serial exam and labs. hope to get her better perhaps do cscope and then plan for elective re-resection. her ventral hernias are not obstructing or complicating at this time. she understands and agrees with the above plan. History of Present Illness History of Present Illness Date of Service: 11/17/20 Chief complaint: abd pain Narrative: Pati Rawls is a 60 year old female with a known history of recurrent diverticulitis and was here several days ago treated with iv and then po antibx for this. She went home about a week ago taking Levaquin and Flagyl and this ended today but yesterday she felt worse with increasing pain in the suprapubic and right lower quadrant area consistent with the pain she gets for her diverticulitis. As a result she comes into the ER. no fever or chills, no vomiting but nauseated with eating. has been trying to eat lightly. Had a sigmoid resection here several years ago with Dr Rabago but unfortunately it looks like an area in the recto sigmoid junction has had recurrent flare ups. She had a cscope about 4 yrs ago at [facility] and was told she had polyps. She is due for another one now. Review of Systems Review of Systems: Constitutional: No Weight loss, Positive Fever, positive Chills, No Night Sweats, No Fatigue, No Malaise ENT/Mouth: No Hearing loss, No Ear Pain, No Nasal Congestion, No Sinus Pain, No Hoarseness, No sore throat, No Rhinorrhea, No Swallowing Difficulty Eyes: No Eye Pain, No Swelling, No Redness, No Foreign Body, No Discharge, No Vision Changes Cardiovascular: No Chest Pain, No SOB, No Dyspnea on Exertion, No Orthopnea, No Edema, No Palpitations Respiratory: No Cough, No Sputum, No Wheezing, No Smoke Exposure, No Dyspnea Gastrointestinal: Positive Nausea, Positive Vomiting, positive Diarrhea, positive abdominal Pain, No Hematochezia, No Melena Genitourinary: no irregular bleeding, No Dysuria, No Urinary Frequency, No Hematuria, No Urinary Incontinence, No Urgency, No Flank Pain, No Urinary Flow Changes, No Hesitancy Musculoskeletal: No joint pain, No Myalgias, No Joint Swelling Skin: No Skin Lesions, No rash Neuro: No Weakness, No Numbness, No Paresthesias, No Loss of Consciousness, No Dizziness, No Headache Psych: No Anxiety/Panic, No Depression, No SI/HI/AH/VH, No Social Issues Heme/Lymph: No Bruising, No Bleeding,No Lymphadenopathy Endocrine: No Polyuria, No Polydipsia, No Temperature Intolerance Yes all other systems are reviewed and are negative [facility] Past Medical History Medical History Asthma Chronic back pain Depression Diabetes 1.5, managed as type 2 Diverticulitis HTN (hypertension) Migraines Surgical History Surgical History History of cholecystectomy History of hysterectomy History of partial colectomy Social History Social History Household Members: Significant Other Housing: Apartment Do you presently have visiting nurse or other home services: No Alcohol intake: never Patient Tobacco Use Status: Never used Tobacco Second Hand Smoke Exposure: Yes Use of substances other than those prescribed or required for medical reasons: No Advance Directives: No Advance Directives Information Provided: No Advance Directives Date on File: 10/01/20 Patient : No service: No Current occupational status: disabled Meds Allergies Allergy/AdvReac Type Severity Reaction Status Date / Time Penicillins [PENICILLINS] Allergy Severe RASH Verified 10/09/20 13:08 gabapentin [GABAPENTIN] Allergy Mild ABD PAIN Verified 10/09/20 13:08 esomeprazole [Nexium] Allergy Unknown rash Verified 10/09/20 13:08 famotidine [From PEPCID] Allergy Unknown UPSET Verified 10/09/20 13:08 STOMACH lansoprazole [Prevacid] Allergy Unknown rash Verified 10/09/20 13:08 penicillin V Allergy Unknown stomach Verified 10/09/20 13:08 pains From NEXIUM Allergy Unknown RASH Uncoded 01/12/20 14:52 Active Medications: Current Medications Generic Name Dose Route Start Last Admin Trade Name Freq PRN Reason Stop Dose Admin Bupropion HCl 150 mg 11/18/20 09:00 Bupropion Hcl Xl 150 Mg Tab.Er.24h PO DAILY [facility] Buspirone HCl 15 mg 11/18/20 09:00 Buspirone Hcl 5 Mg Tablet PO DAILY [facility] Enoxaparin Sodium 40 mg 11/17/20 22:00 Enoxaparin Sodium 40 Mg/0.4 Ml Syringe SUBCUT Q24H [facility] Fluticasone/Vilanterol 1 puff 11/18/20 09:00 Fluticasone/Vilanterol 100/25 Blst.W.Dev INHALE DAILY [facility] Hydromorphone HCl 1 mg 11/17/20 22:03 Hydromorphone Hcl 1 Mg/Ml Syringe IVPUSH Q4H PRN Pain, Severe (Pain Scale 7-10) Hydroxyzine HCl 25 mg 11/18/20 09:00 Hydroxyzine Hcl 25 Mg Tablet PO DAILY [facility] Sodium Chloride 1,000 mls @ 125 mls/hr 11/17/20 22:00 11/17/20 22:06 Ns IVCONT 100 mls/hr .Q8H [facility] Administration Piperacillin Sod/Tazobactam 50 mls @ 100 mls/hr 11/17/20 22:15 Sod 3.375 gm/ Sodium Chloride IV Q6H [facility] Lisinopril 2.5 mg 11/18/20 09:00 Lisinopril 2.5 Mg Tablet PO DAILY [facility] Protocol Montelukast Sodium 10 mg 11/18/20 21:00 Montelukast Sodium 10 Mg Tablet PO BEDTIME [facility] Ondansetron HCl 4 mg 11/17/20 22:04 Ondansetron Hcl 4 Mg/2 Ml Vial IVPUSH Q6H PRN Nausea Pregabalin 150 mg 11/18/20 09:00 Pregabalin 150 Mg Capsule PO DAILY [facility] Sodium Chloride 3 ml 11/18/20 00:00 0.9 % Sodium Chloride Flush 3 Ml Syringe IVFLUSH QSHIFT [facility] Sumatriptan Succinate 100 mg 11/18/20 09:00 Sumatriptan Succinate 100 Mg Tablet PO DAILY [facility]N [facility] Tiotropium [place] 1 puff 11/18/20 09:00 Tiotropium [place] 18 Mcg Cap.W.Dev INHALE DAILY [facility] Tizanidine HCl 2 mg 11/18/20 09:00 Tizanidine Hcl 4 Mg Tablet PO TID [facility] Home Medications Medication Instructions Recorded Confirmed Last Taken Type Jardiance 1 tab PO DAILY 04/17/20 11/17/20 11/07/20 History aspirin 81 mg PO DAILY 04/17/20 11/17/20 11/07/20 History atorvastatin 1 tab PO DAILY 04/17/20 11/17/20 11/07/20 History budesonide-formoterol [Symbicort] 2 puff PO BID 04/17/20 11/17/20 11/07/20 History bupropion HCl 1 tab PO QAM 04/17/20 11/17/20 11/07/20 History calcium carbonate-vitamin D3 1 tab PO BID 04/17/20 11/17/20 11/07/20 History glimepiride 4 mg PO QAM 04/17/20 11/17/20 04/16/20 History hydroxyzine HCl 1 tab PO DAILY 04/17/20 11/17/20 11/07/20 History levocetirizine 1 tab PO BEDTIME 04/17/20 11/17/20 11/07/20 History omeprazole 2 cap PO BID 04/17/20 11/17/20 11/07/20 History ondansetron HCl 1 tab PO Q8H 04/17/20 11/17/20 04/15/20 History pregabalin 1 cap PO DAILY 04/17/20 11/17/20 11/07/20 History sucralfate 1 tab PO QIDWMHS 04/17/20 11/17/20 04/15/20 History sumatriptan succinate 100 mg PO DAILY 04/17/20 11/17/20 04/15/20 History tizanidine 1 tab PO TID 04/17/20 11/17/20 11/07/20 History blood sugar diagnostic #10 ea 09/28/20 11/17/20 Unknown History lancets 28 gauge #100 ea 09/28/20 11/17/20 Unknown History albuterol sulfate 90 mcg/actuation 2 puff INHALATION Q4H PRN 10/09/20 11/17/20 11/07/20 History aerosol inhaler Emgality Pen 120 mg SUBCUT Q4W 11/07/20 11/17/20 10/27/20 History Spiriva with HandiHaler 1 cap INHALATION DAILY 11/07/20 11/17/20 11/07/20 History buspirone 1 tab PO DAILY 11/07/20 11/17/20 11/07/20 History glimepiride 2 mg PO BID@1400,2100 11/07/20 11/17/20 11/07/20 History glipizide 1 tab PO DAILY 11/07/20 11/17/20 11/07/20 History lisinopril 2.5 mg PO DAILY 11/07/20 11/17/20 11/07/20 History zileuton 2 tab PO BID 11/07/20 11/17/20 11/07/20 History Physical Exam Vital Signs: Vital Signs: Last Vital Signs Temp 98.6 F 11/17/20 21:58 Pulse 87 11/17/20 21:58 Resp 16 11/17/20 21:58 BP 108/48 L 11/17/20 21:58 Pulse Ox 93 11/17/20 21:58 Body Mass Index 33.8 Const: General: cooperative, healthy appearing, comfortable, alert and awake Nutritional Appearance: overweight Orientation/consciousness: oriented to person, oriented to place and oriented to time Limitations: no limitations HENMT: Head: Yes normal to inspection Eyes: Sclerae: sclerae normal Neck: Neck: Yes normal visual inspection, Yes full ROM and Yes supple Chest: Chest palpation & inspection: normal inspection of the chest Resp: Auscultation: clear to auscultation bilaterally Cardio: Rate: regular rate Rhythm: regular rhythm GI: Other: soft tender in right lower quadrant area with some guarding no peritoneal signs, active bowel sounds, midline area inferior to umbilicus has mass nontender consitent with ventral/incisional hernia Skin: General skin exam: no rashes or lesions noted Neuro: General: oriented to person, oriented to place and oriented to time Cranial nerves: Yes CN's II-XII intact bilaterally Extrem: General: Yes normal to inspection and Yes full ROM Psych: Appearance: grossly normal Mental Status: mental status grossly normal Speech and movement: Normal speech and movement present Affect: normal affect Attitude: cooperative Thought process: Normal thought process present Thought content: Normal thought content present Insight: Good insight present (Psych) Judgement: Good judgement present (Psych) Results Results Labs: Short CBC 11/17/20 Range/Units 16:49 WBC 17.0 H (4.8-10.8) X10*3/uL Hgb 11.2 L (12.0-16.0) g/dl Hct 36.6 L (37-47) % Plt Count 382 (160-400) X10*3/uL BMP 11/17/20 16:49 Sodium 140 Potassium 3.8 Chloride 107 Carbon Dioxide 23 BUN 9 Creatinine 0.94 Calcium 9.2 Liver Function 11/17/20 Range/Units 16:49 Total Bilirubin 0.2 (0.0-1.0) mg/dL Direct Bilirubin < 0.2 (0.0-0.5) mg/dL AST 11 (5-31) U/L ALT 7 (0-31) U/L Alkaline Phosphatase 106 (39-117) U/L Albumin 3.9 (3.5-5.0) g/dL Urine 11/17/20 Range/Units 16:49 Urine Color STRAW Urine Appearance CLEAR Urine pH 6.0 (5.0-8.0) Ur Specific [place] <= 1.005 (1.005-1.025) Urine Protein NEG (NEG-TRACE) MG/DL Urine Glucose (UA) 250 H (NEG) MG/DL Quality Stroke Does the patient have a stroke diagnosis?: No VTE Prior VTE?: No VTE Risk Level:: Medical - moderate - high VTE Device Contraindication: N/A - Device Ordered VTE Drug Contraindication: N/A - Med Ordered Procedures Date of Service Date of Service: 11/17/20
[2020-11-17 22:24] LABS: COVID-19 Test Negative (Negative); IDNOW Serial# 9DD0AD1C
[2020-11-17] MEDS: Enoxaparin Sodium 40 MG/0.4 ML SYRINGE SUBCUT (22:44)
[2020-11-17] MEDS: Piperacillin Sodium/Tazobactam 3.375 GM in 0.9 % Sodium Chloride 50 ML IV (22:48)
[2020-11-18] MEDS: HYDROmorphone HCl 1 MG/ML SYRINGE IVPUSH ×5 (00:31→22:12)
[2020-11-18] MEDS: ondansetron HCL 4 MG/2 ML VIAL IVPUSH ×2 (00:34→18:46)
[2020-11-18] MEDS: SUMAtriptan succinate 100 MG TABLET PO ×2 (03:10→14:54)
[2020-11-18] MEDS: Piperacillin Sodium/Tazobactam 3.375 GM in 0.9 % Sodium Chloride 50 ML IV ×3 (05:21→18:06)
[2020-11-18] MEDS: 0.9 % Sodium Chloride 1,000 ML 100 ML IVCONT (05:21)
[2020-11-18 05:22] VITALS: BP 105/45; PULSE 65; RESP 16; O2SAT 100
[2020-11-18] MEDS: diphenhydrAMINE HCL 50 MG/ML VIAL 25 MG IVPUSH ×3 (05:28→18:04)
[2020-11-18 07:23] LABS: MANUAL DIFF FLAG NO
[2020-11-18 07:25] LABS: Basophils Percent Auto 0.4 % (0-2); Eosinophils Absolute Auto 0.4 X10*3/uL (0.0-0.4); Eosinophils Percent Auto 3.5 % (0-4); Hemoglobin 11.2 g/dl (12.0-16.0); Imm Gran Abs Auto 0.08 X10*3/uL (0.00-0.03); Imm Gran Pct Auto 0.7 % (0.0-0.4); Lymphocytes Absolute Auto 3.4 X10*3/uL (1.2-4.9); Lymphocytes Percent Auto 32.1 % (20-40); Mean Corpuscular HGB Conc 30.3 g/dl (31.0-35.0); Mean Platelet Volume 10.9 fL (9.4-12.3); Monocytes Absolute Auto 0.6 X10*3/uL (0.1-1.2); Monocytes Percent Auto 5.9 % (2-11); Neutrophils Absolute Auto 6.2 X10*3/uL (2.0-8.3); Neutrophils Percent Auto 57.4 % (45-73); Platelet Count 289 X10*3/uL (160-400); White Blood Count 10.7 X10*3/uL (4.8-10.8)
[2020-11-18 07:54] LABS: Anion Gap 11 (12-20); Blood Urea Nitrogen 7 mg/dL (9-16); Carbon Dioxide 21 mmol/L (22-29); Chloride 112 mmol/L (96-108); Creatinine Clr Calc Pharmacy 68.7; Estimated Glomerular Filt Rate > 60; Glucose Random 98 mg/dL (60-115); Potassium 4.1 mmol/L (3.3-5.1); Sodium 140 mmol/L (135-145)
[2020-11-18] MEDS: busPIRone HCl 5 MG TABLET 15 MG PO (08:04)
[2020-11-18 08:05] VITALS: BP 132/75; PULSE 65
[2020-11-18 08:05] LABS: Calcium 7.8 mg/dL (8.4-10.2)
[2020-11-18] MEDS: lisinopriL 2.5 MG TABLET PO (08:05)
[2020-11-18] MEDS: hydrOXYzine HCL 25 MG TABLET PO (08:07)
[2020-11-18] MEDS: buPROPion HCl XL 150 MG TAB.ER.24H PO (08:07)
[2020-11-18] MEDS: Pregabalin 150 MG CAPSULE PO (08:07)
[2020-11-18] MEDS: TiZANidine HCL 4 MG TABLET 2 MG PO ×3 (08:07→20:35)
[2020-11-18] MEDS: Fluticasone/Vilanterol 100/25 BLST.W.DEV 1 PUFF INHALE (09:29)
[2020-11-18 09:34] VITALS: PULSE 69; O2SAT 90
--- NOTE | 2020-11-18 13:01 | MHC.CM.PN ---
Met with pt to discuss d/c planning: Pt resides with her significant other Scott and is independent with all care needs. She does not have adaptive equipment or services and offers no barriers to medical care. HCP on file: verified with pt. IMM reviewed and copy given to pt. PCP verified. At this time, no d/c services needs are identified and pt should be able to d/c to home with family support. Scott to transport.
--- NOTE | 2020-11-18 15:57 | P.PNGS_ITS ---
Progress Note: A&P Assessment and plan (1) Diverticulitis: Status: Acute Assessment and Plan: pt is a 60 year old female, DM, Htn, Asthma with recurrent sig diverticulitis despite remote sig colectomy - recent admission did well but now worsened on lev aquin and flagyl po meds. doing better, less tender and wbc normal now. cont with iv antibx and ice chips and sips of clears. will discuss with dr Rabago tomorrow she understands and agrees with the above plan. Fall Risk Details Current Medications: Current Medications Generic Name Dose Route Start Last Admin Trade Name Freq PRN Reason Stop Dose Admin Bupropion HCl 150 mg 11/18/20 09:00 11/18/20 08:07 Bupropion Hcl Xl 150 Mg Tab.Er.24h PO 150 mg DAILY [facility] Administration Buspirone HCl 15 mg 11/18/20 09:00 11/18/20 08:04 Buspirone Hcl 5 Mg Tablet PO 15 mg DAILY [facility] Administration Diphenhydramine HCl 25 mg 11/18/20 00:00 11/18/20 13:45 Diphenhydramine Hcl 50 Mg/Ml Vial IVPUSH 25 mg Q6H [facility] Administration Enoxaparin Sodium 40 mg 11/17/20 22:00 11/17/20 22:44 Enoxaparin Sodium 40 Mg/0.4 Ml Syringe SUBCUT 40 mg Q24H [facility] Administration Fluticasone/Vilanterol 1 puff 11/18/20 09:00 11/18/20 09:29 Fluticasone/Vilanterol 100/25 Blst.W.Dev INHALE 1 puff DAILY [facility] Administration Hydromorphone HCl 1 mg 11/17/20 22:03 11/18/20 13:45 Hydromorphone Hcl 1 Mg/Ml Syringe IVPUSH 1 mg Q4H PRN Administration Pain, Severe (Pain Scale 7-10) Hydroxyzine HCl 25 mg 11/18/20 09:00 11/18/20 08:07 Hydroxyzine Hcl 25 Mg Tablet PO 25 mg DAILY [facility] Administration Sodium Chloride 1,000 mls @ 125 mls/hr 11/17/20 22:00 11/18/20 05:21 Ns IVCONT 100 mls/hr .Q8H [facility] Administration Piperacillin Sod/Tazobactam 50 mls @ 100 mls/hr 11/18/20 00:00 11/18/20 13:31 Sod 3.375 gm/ Sodium Chloride IV 100 mls/hr Q6H [facility] Administration Sodium Chloride 1,000 mls @ 125 mls/hr 11/18/20 16:00 Ns IVCONT .Q8H [facility] Lisinopril 2.5 mg 11/18/20 09:00 11/18/20 08:05 Lisinopril 2.5 Mg Tablet PO 2.5 mg DAILY [facility] Administration Protocol Montelukast Sodium 10 mg 11/18/20 21:00 Montelukast Sodium 10 Mg Tablet PO BEDTIME [facility] Ondansetron HCl 4 mg 11/17/20 22:04 11/18/20 00:34 Ondansetron Hcl 4 Mg/2 Ml Vial IVPUSH 4 mg Q6H PRN Administration Nausea Pregabalin 150 mg 11/18/20 09:00 11/18/20 08:07 Pregabalin 150 Mg Capsule PO 150 mg DAILY [facility] Administration Sodium Chloride 3 ml 11/18/20 00:00 11/18/20 13:46 0.9 % Sodium Chloride Flush 3 Ml Syringe IVFLUSH Not Given QSHIFT [facility] Sumatriptan Succinate 100 mg 11/18/20 09:00 11/18/20 14:54 Sumatriptan Succinate 100 Mg Tablet PO 100 mg DAILY PRN Administration MIGRANE Tiotropium [place] 1 puff 11/18/20 09:00 11/18/20 09:29 Tiotropium [place] 18 Mcg Cap.W.Dev INHALE 1 puff DAILY [facility] Administration Tizanidine HCl 2 mg 11/18/20 09:00 11/18/20 13:46 Tizanidine Hcl 4 Mg Tablet PO 2 mg TID [facility] Administration Time Spent With Patient Time: Total time spent is greater than 50% in coordination of care (as documented) at patient's floor/unit and/or counseling patient: Time with patient: 25 - 35 minutes Subjective Subjective Date of Service: 11/18/20 Physical Exam Vital Signs: Vital Signs: Last Vital Signs Temp 98.6 F 11/17/20 21:58 Pulse 69 11/18/20 09:34 Resp 16 11/18/20 05:22 BP 132/75 11/18/20 08:05 Pulse Ox 100 11/18/20 05:22 Body Mass Index 33.8 Const: General: cooperative, healthy appearing, comfortable, alert and awake Nutritional Appearance: overweight Orientation/consciousness: oriented to person, oriented to place and oriented to time Limitations: no limitations HENMT: Head: Yes normal to inspection Eyes: Sclerae: sclerae normal Neck: Neck: Yes normal visual inspection, Yes full ROM and Yes supple Chest: Chest palpation & inspection: normal inspection of the chest Resp: Auscultation: clear to auscultation bilaterally Cardio: Rate: regular rate Rhythm: regular rhythm GI: Other: decreased tenderness but still with some in lowr abdomen Skin: General skin exam: no rashes or lesions noted Neuro: General: oriented to person, oriented to place and oriented to time Cranial nerves: Yes CN's II-XII intact bilaterally Extrem: General: Yes normal to inspection and Yes full ROM Psych: Appearance: grossly normal Mental Status: mental status grossly normal Speech and movement: Normal speech and movement present Affect: normal affect Attitude: cooperative Thought process: Normal thought process present Thought content: Normal thought content present Insight: Good insight present (Psych) Judgement: Good judgement present (Psych) Procedures Date of Service Date of Service: 11/18/20 Quality Stroke Does the patient have a stroke diagnosis?: No VTE Prior VTE?: No VTE Risk Level:: Medical - moderate - high VTE Device Contraindication: N/A - Device Ordered VTE Drug Contraindication: N/A - Med Ordered
[2020-11-18 17:57] VITALS: BP 129/60; PULSE 71; RESP 16; TEMP 36.4; O2SAT 93
[2020-11-18] MEDS: metroNIDAZOLE/NS 500 MG/100 ML PIGGYBACK 100 MG IV (18:04)
[2020-11-18] MEDS: 0.9 % Sodium Chloride Flush 3 ML SYRINGE IVFLUSH (18:06)
[2020-11-18] MEDS: 0.9 % Sodium Chloride 1,000 ML 125 ML IVCONT (18:06)
[2020-11-18 18:14] VITALS: BMI 32.5
[2020-11-18] MEDS: Butalb/Acetamin/Caff 50/325/40 TABLET 1 TAB PO (19:44)
[2020-11-18 20:33] LABS: Glucose, Whole Blood 78 mg/dL (60-115)
[2020-11-18] MEDS: Enoxaparin Sodium 40 MG/0.4 ML SYRINGE SUBCUT (20:35)
[2020-11-18] MEDS: HYDROmorphone HCl 0.5 MG/0.5 ML SYRINGE IVPUSH (20:35)
[2020-11-18] MEDS: Montelukast Sodium 10 MG TABLET PO (20:36)
[2020-11-18] MEDS: Zolpidem Tartrate 5 MG TABLET PO (23:25)
[2020-11-19] VITALS: BP 101/59; PULSE 54; RESP 18; O2SAT 91
[2020-11-19] MEDS: ondansetron HCL 4 MG/2 ML VIAL IVPUSH ×3 (00:20→13:22)
[2020-11-19] MEDS: metroNIDAZOLE/NS 500 MG/100 ML PIGGYBACK 100 MG IV ×4 (00:20→23:11)
[2020-11-19] MEDS: Piperacillin Sodium/Tazobactam 3.375 GM in 0.9 % Sodium Chloride 50 ML IV ×5 (00:20→23:12)
[2020-11-19] MEDS: diphenhydrAMINE HCL 50 MG/ML VIAL 25 MG IVPUSH ×5 (00:26→23:10)
[2020-11-19] MEDS: Butalb/Acetamin/Caff 50/325/40 TABLET 1 TAB PO ×4 (00:27→23:11)
[2020-11-19] MEDS: 0.9 % Sodium Chloride 1,000 ML 125 ML IVCONT ×3 (01:32→23:11)
[2020-11-19] MEDS: HYDROmorphone HCl 1 MG/ML SYRINGE IVPUSH ×5 (03:04→20:35)
[2020-11-19 03:11] LABS: Glucose, Whole Blood 92 mg/dL (60-115)
[2020-11-19 06:00] VITALS: BMI 32.8
[2020-11-19 07:28] VITALS: BP 105/52; PULSE 63; RESP 18; TEMP 36.7; O2SAT 92
[2020-11-19] MEDS: buPROPion HCl XL 150 MG TAB.ER.24H PO (07:33)
[2020-11-19] MEDS: busPIRone HCl 5 MG TABLET 15 MG PO (07:33)
[2020-11-19] MEDS: Pregabalin 150 MG CAPSULE PO (07:33)
[2020-11-19] MEDS: TiZANidine HCL 4 MG TABLET 2 MG PO ×3 (07:33→20:33)
[2020-11-19] MEDS: hydrOXYzine HCL 25 MG TABLET PO (07:37)
[2020-11-19 07:47] LABS: Glucose, Whole Blood 103 mg/dL (60-115)
[2020-11-19 11:52] VITALS: BP 110/55; PULSE 55; RESP 18; TEMP 36.1; O2SAT 93
[2020-11-19] MEDS: SUMAtriptan succinate 100 MG TABLET PO (12:07)
[2020-11-19 13:24] LABS: Glucose, Whole Blood 98 mg/dL (60-115)
--- NOTE | 2020-11-19 13:25 | P.PNGS_ITS ---
Subjective Subjective Date of Service: 11/19/20 <Nova Dennis PA-C - Last Filed: 11/19/20 14:17> 11/19/20 <Ramses Rabago MD - Last Filed: 11/19/20 14:25> Interval history: Does not feel any better. Pain is the same as when she was admitted- remains in RLQ, sharp. Continues to have nausea. Passing flatus. <Nova Dennis PA-C - Last Filed: 11/19/20 14:17> Physical Exam Vital Signs: Vital Signs: Last Vital Signs Temp 97.0 F 11/19/20 11:52 Pulse 55 11/19/20 11:52 Resp 18 11/19/20 11:52 BP 110/55 L 11/19/20 11:52 Pulse Ox 93 11/19/20 11:52 Body Mass Index 32.8 <Nova Dennis PA-C - Last Filed: 11/19/20 14:17> Const: General: comfortable and no acute distress <TRACY Prado - Last Filed: 11/19/20 14:17> Nutritional Appearance: obese <Nova Dennis PA-C - Last Filed: 11/19/20 14:17> Orientation/consciousness: patient oriented x3 <Nova Dennis PA-C - Last Filed: 11/19/20 14:17> Resp: Effort & Inspection: normal respiratory effort <Nova Dennis PA-C - Last Filed: 11/19/20 14:17> Cardio: Rate: regular rate <Nova Dennis PA-C - Last Filed: 11/19/20 14:17> GI: Inspection: No distended <Nova Dennis PA-C - Last Filed: 11/19/20 14:17> Palpation (GI): Soft to palpation, Tenderness to palpation present (GI) in the RLQ, no guarding and not rigid <VICKY Prado Last Filed: 11/19/20 14:17> Percussion: Yes normal to percussion <Nova Dennis PA-C - Last Filed: 11/19/20 14:17> Auscultation: normal bowel sounds <Nova Dennis PA-C Narendra Last Filed: 11/19/20 14:17> Skin: General skin exam: no rashes or lesions noted <Nova Dennis PA-C Last Filed: 11/19/20 14:17> Neuro: General: patient oriented x3 <Nova Dennis PA-C Narendra Last Filed: 11/19/20 14:17> Extrem: General: Yes no clubbing, cyanosis or edema <Nova Dennis PA-C Filed: 11/19/20 14:17> Procedures Date of Service Date of Service: 11/19/20 <Nova Dennis PA-C Filed: 11/19/20 14:17> Progress Note: A&P Assessment and plan (1) Abdominal pain: Status: Acute <Nova Dennis PA-C Narendra Filed: 11/19/20 14:17> Assessment and Plan: Ms. Rawls is a 60 year old female with PMH including DM, HtN, asthma presenting with c/o RLQ abdominal pain. Patient with history of sig diverticulitis requiring low anterior resection, ileostomy with subsequent ileostomy reversal. She had a recent admission this October and did well with nonoperative management but worsened at home after finishing PO course of abx. CT scan showed resolution of inflammatory changes, no evidence of abscess or perforation. She was admitted to the surgical service and treated conservatively for recurrent diverticulitis with IV zosyn and flagyl. Today she does not feel improved- her pain remains the same and now has persistent nausea. VSS. Abd exam- soft, non distended, RLQ tender to palpation. Her WBC has normalized. Unclear etiology of current pain as CT scan suggests resolution of inflammatory changes. Will consult GI for input, possible colonoscopy. Cont IV abx, IVF, PRN antiemetics and analgesics for now. <Nova Dennis PA-C Narendra Last Filed: 11/19/20 14:17> Patient seen and examined H&P reviewed Unclear as to the exact etiology of her abdominal pain She points to the right lower quadrant as where her pain usually is CT scan shows resolution of inflammatory changes in the sigmoid Heavy stool volume in the distal colon Abdomen soft, benign, mild tenderness in right upper quadrant Okay to start on clear liquids GI consult - patient says he is due for her colonoscopy Seen and examined independently - agree with CHARLIE Dennis <Ramses Rabago MD - Last Filed: 11/19/20 14:25> Fall Risk Details Current Medications: Current Medications Generic Name Dose Route Start Last Admin Trade Name Freq PRN Reason Stop Dose Admin Acetaminophen/Butalbital/Caffeine 1 tab 11/18/20 18:40 11/19/20 06:26 Butalb/Acetamin/Caff 50/325/40 Tablet PO 1 tab Q4H PRN Administration Migraine Headache Bupropion HCl 150 mg 11/18/20 09:00 11/19/20 07:33 Bupropion Hcl Xl 150 Mg Tab.Er.24h PO 150 mg DAILY [facility] Administration Buspirone HCl 15 mg 11/18/20 09:00 11/19/20 07:33 Buspirone Hcl 5 Mg Tablet PO 15 mg DAILY [facility] Administration Diphenhydramine HCl 25 mg 11/18/20 00:00 11/19/20 11:42 Diphenhydramine Hcl 50 Mg/Ml Vial IVPUSH 25 mg Q6H [facility] Administration Enoxaparin Sodium 40 mg 11/17/20 22:00 11/18/20 20:35 Enoxaparin Sodium 40 Mg/0.4 Ml Syringe SUBCUT 40 mg Q24H [facility] Administration Fluticasone/Vilanterol 1 puff 11/18/20 09:00 11/19/20 08:29 Fluticasone/Vilanterol 100/25 Blst.W.Dev INHALE Not Given DAILY [facility] Hydromorphone HCl 1 mg 11/17/20 22:03 11/19/20 12:08 Hydromorphone Hcl 1 Mg/Ml Syringe IVPUSH 1 mg Q4H PRN Administration Pain, Severe (Pain Scale 7-10) Hydroxyzine HCl 25 mg 11/18/20 09:00 11/19/20 07:37 Hydroxyzine Hcl 25 Mg Tablet PO 25 mg DAILY [facility] Administration Piperacillin Sod/Tazobactam 50 mls @ 100 mls/hr 11/18/20 00:00 11/19/20 12:28 Sod 3.375 gm/ Sodium Chloride IV Infused Q6H [facility] Infusion Sodium Chloride 1,000 mls @ 125 mls/hr 11/18/20 16:00 11/19/20 11:41 Ns IVCONT 125 mls/hr .Q8H [facility] Administration Metronidazole 500 mg in 100 mls @ 100 mls/hr 11/18/20 16:00 11/19/20 09:51 Flagyl IV Infused Q8H [facility] Infusion Lisinopril 2.5 mg 11/18/20 09:00 11/19/20 11:08 Lisinopril 2.5 Mg Tablet PO Not Given DAILY [facility] Protocol Montelukast Sodium 10 mg 11/18/20 21:00 11/18/20 20:36 Montelukast Sodium 10 Mg Tablet PO 10 mg BEDTIME [facility] Administration Ondansetron HCl 4 mg 11/17/20 22:04 11/19/20 13:22 Ondansetron Hcl 4 Mg/2 Ml Vial IVPUSH 4 mg Q6H PRN Administration Nausea Pregabalin 150 mg 11/18/20 09:00 11/19/20 07:33 Pregabalin 150 Mg Capsule PO 150 mg DAILY [facility] Administration Sodium Chloride 3 ml 11/18/20 00:00 11/19/20 09:43 0.9 % Sodium Chloride Flush 3 Ml Syringe IVFLUSH Not Given QSHIFT [facility] Sumatriptan Succinate 100 mg 11/18/20 09:00 11/19/20 12:07 Sumatriptan Succinate 100 Mg Tablet PO 100 mg DAILY PRN Administration MIGRANE Tiotropium [place] 1 puff 11/18/20 09:00 11/19/20 08:29 Tiotropium [place] 18 Mcg Cap.W.Dev INHALE Not Given DAILY [facility] Tizanidine HCl 2 mg 11/18/20 09:00 11/19/20 07:33 Tizanidine Hcl 4 Mg Tablet PO 2 mg TID [facility] Administration <Nova Dennis PA-C - Last Filed: 11/19/20 14:17> Time Spent With Patient Time: Total time spent is greater than 50% in coordination of care (as documented) at patient's floor/unit and/or counseling patient: <VICKY Prado Last Filed: 11/19/20 14:17> Time with patient: 15 - 24 minutes <VICKY Prado Last Filed: 11/19/20 14:17> Quality Stroke Does the patient have a stroke diagnosis?: No <Nova Dennis PA-C - Last Filed: 11/19/20 14:17> VTE Prior VTE?: No <Nova Dennis PA-C - Last Filed: 11/19/20 14:17> VTE Risk Level:: Medical - moderate - high <Nova Dennis PA-C - Last Filed: 11/19/20 14:17> VTE Device Contraindication: N/A - Device Ordered <Nova Dennis PA-C - Last Filed: 11/19/20 14:17> VTE Drug Contraindication: N/A - Med Ordered <Nova Dennis PA-C - Last Filed: 11/19/20 14:17>
--- NOTE | 2020-11-19 15:00 | P.CNGI_ITS ---
History of Present Illness Data of Consult Service Date: 11/19/20 Requesting physician: Claudia Schreiber Primary Care Provider: Venancio Lomeli NP [facility] Reason for consult: recurrent diverticulitis 60 year old female with PMH of DM, HtN, asthma, hx of LAR with ileostomy and reversal who I am seeing for assessment for RLQ pain. She has had RLQ sharp, burning pain for 2 weeks. She felt this pain was similar to her prior episodes of diverticulitis, at least 6 since her LAR surgery 2010. It was severe and worse with movement. she has persistent nausea for months and was waiting for an EGD at [facility], She denies diarrhea, consitpation, no melena or rectal bleeding. No fever or sweats. She feels better today, passing gas and stool. LAst colonoscopy 3 yrs ago at [facility], results not known. She had CT scan 11/07/20 with sigmoid diverticulitis and several internal hernias, incl ventral and umbilical areas. Repeat CT 11/18/20--- no areas of stranding seen but large ventral hernia noted, lots of stool content in bowel Review of Systems Review of Systems: Constitutional: No Weight loss, Positive Fever, positive Chills, No Night Sweats, No Fatigue, No Malaise ENT/Mouth: No Hearing loss, No Ear Pain, No Nasal Congestion, No Sinus Pain, No Hoarseness, No sore throat, No Rhinorrhea, No Swallowing Difficulty Eyes: No Eye Pain, No Swelling, No Redness, No Foreign Body, No Discharge, No Vision Changes Cardiovascular: No Chest Pain, No SOB, No Dyspnea on Exertion, No Orthopnea, No Edema, No Palpitations Respiratory: No Cough, No Sputum, No Wheezing, No Smoke Exposure, No Dyspnea Gastrointestinal: Positive Nausea, Positive Vomiting, positive Diarrhea, positive abdominal Pain, No Hematochezia, No Melena Genitourinary: no irregular bleeding, No Dysuria, No Urinary Frequency, No Hematuria, No Urinary Incontinence, No Urgency, No Flank Pain, No Urinary Flow Changes, No Hesitancy Musculoskeletal: No joint pain, No Myalgias, No Joint Swelling --chornic back pain Skin: No Skin Lesions, No rash Neuro: No Weakness, No Numbness, No Paresthesias, No Loss of Consciousness, No Dizziness, No Headache Psych: No Anxiety/Panic, No Depression, No SI/HI/AH/VH, No Social Issues Heme/Lymph: No Bruising, No Bleeding,No Lymphadenopathy Endocrine: No Polyuria, No Polydipsia, No Temperature Intolerance Yes all other systems are reviewed and are negative [facility] Past Medical History Medical History Asthma Chronic back pain Depression Diabetes 1.5, managed as type 2 Diverticulitis HTN (hypertension) Migraines Surgical History Surgical History History of cholecystectomy History of hysterectomy History of partial colectomy Social History Social History Household Members: Spouse Housing: House Do you presently have visiting nurse or other home services: No Alcohol intake: never Patient Tobacco Use Status: Never used Tobacco Second Hand Smoke Exposure: Yes Use of substances other than those prescribed or required for medical reasons: No Currently Displaying Signs/Symptoms of Drug Intoxication Withdrawal: No Have you been hit, kicked, punched, or otherwise hurt by someone within the past year? If so, by whom?: No Do you feel safe in your current relationship?: Yes Is there a partner from a previous relationship who is making you feel unsafe now?: No Are you made to feel afraid or neglected: No Advance Directives: No Advance Directives Information Provided: No Advance Directives Date on File: 10/01/20 Do you have thoughts of harming others: None Do you have a plan to hurt others: No Plan Recently lost weight without trying: No Nutrition Risks: Poor intake 0-25% >4 days Patient : No : No Poor oral hygiene: No service: No Current occupational status: disabled Meds Allergies Allergy/AdvReac Type Severity Reaction Status Date / Time Penicillins [PENICILLINS] Allergy Severe RASH Verified 10/09/20 13:08 gabapentin [GABAPENTIN] Allergy Mild ABD PAIN Verified 10/09/20 13:08 esomeprazole [Nexium] Allergy Unknown rash Verified 10/09/20 13:08 famotidine [From PEPCID] Allergy Unknown UPSET Verified 10/09/20 13:08 STOMACH lansoprazole [Prevacid] Allergy Unknown rash Verified 10/09/20 13:08 penicillin V Allergy Unknown stomach Verified 10/09/20 13:08 pains From NEXIUM Allergy Unknown RASH Uncoded 01/12/20 14:52 Active Medications: Current Medications Generic Name Dose Route Start Last Admin Trade Name Freq PRN Reason Stop Dose Admin Acetaminophen/Butalbital/Caffeine 1 tab 11/18/20 18:40 11/19/20 06:26 Butalb/Acetamin/Caff 50/325/40 Tablet PO 1 tab Q4H PRN Administration Migraine Headache Bupropion HCl 150 mg 11/18/20 09:00 11/19/20 07:33 Bupropion Hcl Xl 150 Mg Tab.Er.24h PO 150 mg DAILY [facility]ORIO Administration Buspirone HCl 15 mg 11/18/20 09:00 11/19/20 07:33 Buspirone Hcl 5 Mg Tablet PO 15 mg DAILY [facility]IO Administration Diphenhydramine HCl 25 mg 11/18/20 00:00 11/19/20 11:42 Diphenhydramine Hcl 50 Mg/Ml Vial IVPUSH 25 mg Q6H [facility]IO Administration Enoxaparin Sodium 40 mg 11/17/20 22:00 11/18/20 20:35 Enoxaparin Sodium 40 Mg/0.4 Ml Syringe SUBCUT 40 mg Q24H [facility]ORIO Administration Fluticasone/Vilanterol 1 puff 11/18/20 09:00 11/19/20 08:29 Fluticasone/Vilanterol 100/25 Blst.W.Dev INHALE Not Given DAILY [facility]IO Hydromorphone HCl 1 mg 11/17/20 22:03 11/19/20 12:08 Hydromorphone Hcl 1 Mg/Ml Syringe IVPUSH 1 mg Q4H PRN Administration Pain, Severe (Pain Scale 7-10) Hydroxyzine HCl 25 mg 11/18/20 09:00 11/19/20 07:37 Hydroxyzine Hcl 25 Mg Tablet PO 25 mg DAILY [facility]ORIO Administration Piperacillin Sod/Tazobactam 50 mls @ 100 mls/hr 11/18/20 00:00 11/19/20 12:28 Sod 3.375 gm/ Sodium Chloride IV Infused Q6H [facility] Infusion Sodium Chloride 1,000 mls @ 125 mls/hr 11/18/20 16:00 11/19/20 11:41 Ns IVCONT 125 mls/hr .Q8H [facility] Administration Metronidazole 500 mg in 100 mls @ 100 mls/hr 11/18/20 16:00 11/19/20 09:51 Flagyl IV Infused Q8H [facility] Infusion Lisinopril 2.5 mg 11/18/20 09:00 11/19/20 11:08 Lisinopril 2.5 Mg Tablet PO Not Given DAILY [facility]ORIO Protocol Montelukast Sodium 10 mg 11/18/20 21:00 11/18/20 20:36 Montelukast Sodium 10 Mg Tablet PO 10 mg BEDTIME [facility]IO Administration Ondansetron HCl 4 mg 11/17/20 22:04 11/19/20 13:22 Ondansetron Hcl 4 Mg/2 Ml Vial IVPUSH 4 mg Q6H PRN Administration Nausea Pregabalin 150 mg 11/18/20 09:00 11/19/20 07:33 Pregabalin 150 Mg Capsule PO 150 mg DAILY [facility]ORIO Administration Sodium Chloride 3 ml 11/18/20 00:00 11/19/20 09:43 0.9 % Sodium Chloride Flush 3 Ml Syringe IVFLUSH Not Given QSHIFT [facility] Sumatriptan Succinate 100 mg 11/18/20 09:00 11/19/20 12:07 Sumatriptan Succinate 100 Mg Tablet PO 100 mg DAILY PRN Administration MIGRANE Tiotropium [place] 1 puff 11/18/20 09:00 11/19/20 08:29 Tiotropium [place] 18 Mcg Cap.W.Dev INHALE Not Given DAILY [facility] Tizanidine HCl 2 mg 11/18/20 09:00 11/19/20 07:33 Tizanidine Hcl 4 Mg Tablet PO 2 mg TID LIBORIO Administration Home Medications Medication Instructions Recorded Confirmed Last Taken Type Jardiance 1 tab PO DAILY 04/17/20 11/17/20 11/07/20 History aspirin 81 mg PO DAILY 04/17/20 11/17/20 11/07/20 History atorvastatin 1 tab PO DAILY 04/17/20 11/17/20 11/07/20 History budesonide-formoterol [Symbicort] 2 puff PO BID 04/17/20 11/17/20 11/07/20 History bupropion HCl 1 tab PO QAM 04/17/20 11/17/20 11/07/20 History calcium carbonate-vitamin D3 1 tab PO BID 04/17/20 11/17/20 11/07/20 History glimepiride 4 mg PO QAM 04/17/20 11/17/20 04/16/20 History hydroxyzine HCl 1 tab PO DAILY 04/17/20 11/17/20 11/07/20 History levocetirizine 1 tab PO BEDTIME 04/17/20 11/17/20 11/07/20 History omeprazole 2 cap PO BID 04/17/20 11/17/20 11/07/20 History ondansetron HCl 1 tab PO Q8H 04/17/20 11/17/20 04/15/20 History pregabalin 1 cap PO DAILY 04/17/20 11/17/20 11/07/20 History sucralfate 1 tab PO QIDWMHS 04/17/20 11/17/20 04/15/20 History sumatriptan succinate 100 mg PO DAILY 04/17/20 11/17/20 04/15/20 History tizanidine 1 tab PO TID 04/17/20 11/17/20 11/07/20 History blood sugar diagnostic #10 ea 09/28/20 11/17/20 Unknown History lancets 28 gauge #100 ea 09/28/20 11/17/20 Unknown History albuterol sulfate 90 mcg/actuation 2 puff INHALATION Q4H PRN 10/09/20 11/17/20 11/07/20 History aerosol inhaler Emgality Pen 120 mg SUBCUT Q4W 11/07/20 11/17/20 10/27/20 History Spiriva with HandiHaler 1 cap INHALATION DAILY 11/07/20 11/17/20 11/07/20 History buspirone 1 tab PO DAILY 11/07/20 11/17/20 11/07/20 History glimepiride 2 mg PO BID@1400,2100 11/07/20 11/17/20 11/07/20 History glipizide 1 tab PO DAILY 11/07/20 11/17/20 11/07/20 History lisinopril 2.5 mg PO DAILY 11/07/20 11/17/20 11/07/20 History zileuton 2 tab PO BID 11/07/20 11/17/20 11/07/20 History Physical Exam Vital Signs: Vital Signs: Last Vital Signs Temp 97.0 F 11/19/20 11:52 Pulse 55 11/19/20 11:52 Resp 18 11/19/20 11:52 BP 110/55 L 11/19/20 11:52 Pulse Ox 93 11/19/20 11:52 Body Mass Index 32.8 Const: General: cooperative, healthy appearing, comfortable, no acute distress, alert and awake Nutritional Appearance: obese and overweight Orientation/consciousness: oriented to person, oriented to place, oriented to time and patient oriented x3 Limitations: no limitations HENMT: Head: Yes normal to inspection Eyes: Sclerae: sclerae normal Neck: Neck: Yes normal visual inspection, Yes full ROM and Yes supple Chest: Chest palpation & inspection: normal inspection of the chest Resp: Effort & Inspection: normal respiratory effort Auscultation: clear to auscultation bilaterally Cardio: Rate: regular rate Rhythm: regular rhythm GI: Inspection: No distended Palpation (GI): Soft to palpation, Tenderness to palpation present (GI) in the RLQ, no guarding and not rigid Percussion: Yes normal to percussion Auscultation: normal bowel sounds Skin: General skin exam: no rashes or lesions noted Neuro: General: oriented to person, oriented to place, oriented to time and patient oriented x3 Cranial nerves: Yes CN's II-XII intact bilaterally Extrem: General: Yes normal to inspection, Yes full ROM and Yes no clubbing, cyanosis or edema Psych: Appearance: grossly normal Mental Status: mental status grossly normal Speech and movement: Normal speech and movement present Affect: normal affect Attitude: cooperative Thought process: Normal thought process present Thought content: Normal thought content present Insight: Good insight present (Psych) Judgement: Good judgement present (Psych) Results Labs CBC & Chem 7: 11/18/20 07:11 11/18/20 07:11 Microbiology Microbiology Results: Microbiology 11/17/20 17:14 Blood - Venous Blood Culture - Preliminary No growth after 24 hours. 11/17/20 16:49 Blood - Venous Blood Culture - Preliminary No growth after 24 hours. Assessment and Plan (1) Hernia of small intestine: Status: Acute (2) Abdominal pain: Status: Acute 1/ Ongoing but improving RLQ abdominal pain, initial imaging with mild diverticulitis ofr sigmoid, WCC has normalized. Suspect her pain is combination due to her large ventral hernia and not necessarily her diverticulitis alone. Biochemically has improved also, as well as radiologically. May also be due to her constipation and stool burden, vs radicular pain from her back. PLAN: 1/stool regimen, e.g miralax bid, and colace, high fiber diet 2/ minimize narcotics 3/ o/p colonoscopy in 3-4 weeks if conts to improve otherwise inpatient colonoscopy along with EGD for her nausea (may be due to gastroparesis or 2/2 diabtes medications) 4/ o/p surgical assessment for henria repairs 5/ check tsh Procedures Date of Service Date of Service: 11/19/20
[2020-11-19 16:00] VITALS: BP 141/76; PULSE 58; RESP 18; TEMP 36.3; O2SAT 99
[2020-11-19] MEDS: 0.9 % Sodium Chloride Flush 3 ML SYRINGE IVFLUSH ×2 (16:07→20:35)
[2020-11-19 19:51] VITALS: BP 96/45; PULSE 62; RESP 18; TEMP 36.1; O2SAT 94
[2020-11-19] MEDS: Montelukast Sodium 10 MG TABLET PO (20:33)
[2020-11-19] MEDS: Enoxaparin Sodium 40 MG/0.4 ML SYRINGE SUBCUT (20:33)
[2020-11-19 22:58] VITALS: BP 111/53; PULSE 65; RESP 18; TEMP 36.4; O2SAT 96
[2020-11-20] MEDS: HYDROmorphone HCl 1 MG/ML SYRINGE IVPUSH ×5 (01:22→22:04)
[2020-11-20] MEDS: ondansetron HCL 4 MG/2 ML VIAL IVPUSH ×3 (01:29→16:13)
[2020-11-20 03:24] VITALS: BP 139/66; PULSE 55; RESP 18; TEMP 37; O2SAT 93
[2020-11-20] MEDS: Butalb/Acetamin/Caff 50/325/40 TABLET 1 TAB PO ×3 (03:30→21:11)
[2020-11-20 05:47] VITALS: BMI 32.9
[2020-11-20] MEDS: diphenhydrAMINE HCL 50 MG/ML VIAL 25 MG IVPUSH ×4 (05:56→23:52)
[2020-11-20 05:57] VITALS: RESP 18
[2020-11-20] MEDS: Piperacillin Sodium/Tazobactam 3.375 GM in 0.9 % Sodium Chloride 50 ML IV ×4 (05:59→23:52)
[2020-11-20 06:03] LABS: MANUAL DIFF FLAG NO
[2020-11-20 06:04] LABS: Basophils Percent Auto 0.3 % (0-2); Eosinophils Absolute Auto 0.4 X10*3/uL (0.0-0.4); Eosinophils Percent Auto 3.2 % (0-4); Hematocrit 32.4 % (37-47); Imm Gran Abs Auto 0.06 X10*3/uL (0.00-0.03); Imm Gran Pct Auto 0.5 % (0.0-0.4); Lymphocytes Absolute Auto 3.1 X10*3/uL (1.2-4.9); Lymphocytes Percent Auto 25.8 % (20-40); Mean Corpuscular HGB Conc 30.9 g/dl (31.0-35.0); Mean Corpuscular Hemoglobin 26.2 pg (27.0-33.0); Mean Platelet Volume 10.9 fL (9.4-12.3); Monocytes Absolute Auto 0.8 X10*3/uL (0.1-1.2); Monocytes Percent Auto 6.8 % (2-11); Neutrophils Absolute Auto 7.7 X10*3/uL (2.0-8.3); Neutrophils Percent Auto 63.4 % (45-73); Platelet Count 305 X10*3/uL (160-400); Red Blood Count 3.81 X10*6/uL (4.20-5.50); Red Cell Distribution Width 15.4 % (11.0-16.0); White Blood Count 12.2 X10*3/uL (4.8-10.8)
[2020-11-20 06:38] LABS: Anion Gap 9 (12-20); Blood Urea Nitrogen 6 mg/dL (9-16); Calcium 7.8 mg/dL (8.4-10.2); Carbon Dioxide 22 mmol/L (22-29); Chloride 113 mmol/L (96-108); Creatinine Clr Calc Pharmacy 79.9; Estimated Glomerular Filt Rate > 60; Glucose Fasting 101 mg/dL (60-99); Potassium 3.7 mmol/L (3.3-5.1); Sodium 140 mmol/L (135-145)
[2020-11-20] MEDS: metroNIDAZOLE/NS 500 MG/100 ML PIGGYBACK 100 MG IV ×2 (07:17→16:13)
[2020-11-20] MEDS: 0.9 % Sodium Chloride 1,000 ML 125 ML IVCONT ×2 (07:21→21:23)
[2020-11-20 07:35] VITALS: BP 103/51; PULSE 57; RESP 16; TEMP 36.1; O2SAT 92
--- NOTE | 2020-11-20 08:25 | PM.PNGS ---
Subjective Subjective Date of Service: 11/20/20 <Nova Dennis PA-C - Last Filed: 11/20/20 08:32> 11/20/20 <Ramses Rabago MD - Last Filed: 11/20/20 12:13> Interval history: Feels better this morning. Pain improved and nausea improved yesterday but woke up with it this morning. Tolerating some clear liquids. Passing flatus but no BM. Asking to go home tomorrow. <Nova Dennis PA-C - Last Filed: 11/20/20 08:32> Physical Exam Vital Signs: Vital Signs: Last Vital Signs Temp 97.0 F 11/20/20 07:35 Pulse 57 11/20/20 07:35 Resp 16 11/20/20 07:35 BP 103/51 L 11/20/20 07:35 Pulse Ox 92 11/20/20 07:35 Body Mass Index 32.9 <Nova Dennis PA-C - Last Filed: 11/20/20 08:32> Const: General: comfortable, no acute distress and alert <Nova Dennis PA-C - Last Filed: 11/20/20 08:32> Orientation/consciousness: patient oriented x3 <VICKY Prado Last Filed: 11/20/20 08:32> Eyes: Sclerae: sclerae normal <Nova Dennis PA-C - Last Filed: 11/20/20 08:32> Resp: Effort & Inspection: normal respiratory effort <Nova Dennis PA-C - Last Filed: 11/20/20 08:32> GI: Inspection: No distended <Nova Dennis PA-C - Last Filed: 11/20/20 08:32> Palpation (GI): Soft to palpation and Tenderness to palpation present (GI) in the RLQ (moderate, improved) <VICKY Prado Last Filed: 11/20/20 08:32> Percussion: Yes normal to percussion <VICKY Prado Last Filed: 11/20/20 08:32> Auscultation: normal bowel sounds <VICKY Prado Last Filed: 11/20/20 08:32> Skin: General skin exam: no rashes or lesions noted <Nova Dennis PA-C - Last Filed: 11/20/20 08:32> Neuro: General: patient oriented x3 <Nova Dennis PA-C - Last Filed: 11/20/20 08:32> Extrem: General: Yes no clubbing, cyanosis or edema <Nova Dennis PA-C - Last Filed: 11/20/20 08:32> Procedures Date of Service Date of Service: 11/20/20 <Nova Dennis PA-C - Last Filed: 11/20/20 08:32> Progress Note: A&P Assessment and plan (1) Abdominal pain: Status: Acute <Nova Dennis PA-C - Last Filed: 11/20/20 08:32> Assessment and Plan: She feels improved this morning pain geiger but still having nausea. VSS. Abd exam improved- remains soft, non distended, tender at RLQ. Abd pain etiology unclear, may be multifactorial and related to stool burden or hernias. Started on miralax/colace for bowel regimen. Encouraged OOB/ambulation. If continues to improve, advance diet later today. Seen by GI- outpatient colonoscopy, possible inpatient endoscopy if nausea does not improve. Will consult ID for one positive blood culture. If contaminant, will d/c IV abx, as pain likely not secondary to acute diverticulitis. <Nova Dennis PA-C - Last Filed: 11/20/20 08:32> feels better looks well predominant complaint now is nausea tolerating liquids abd remains soft and benign 1/2 blood cultures positive for E coli currentlly on ZOsyn, Dr. [place] consulted she remains afebrile advance diet as tolerated etiology of complains unclear - does not seem to be c/w diverticulitis <Ramses Rabago MD - Last Filed: 11/20/20 12:13> Fall Risk Details Current Medications: Current Medications Generic Name Dose Route Start Last Admin Trade Name Freq PRN Reason Stop Dose Admin Acetaminophen 650 mg 11/20/20 07:15 Acetaminophen 325 Mg Tablet PO Q6H PRN Pain, Mild (Pain Scale 1-3) Acetaminophen/Butalbital/Caffeine 1 tab 11/18/20 18:40 11/20/20 03:30 Butalb/Acetamin/Caff 50/325/40 Tablet PO 1 tab Q4H PRN Administration Migraine Headache Bupropion HCl 150 mg 11/18/20 09:00 11/19/20 07:33 Bupropion Hcl Xl 150 Mg Tab.Er.24h PO 150 mg DAILY LIBORIO Administration Buspirone HCl 15 mg 11/18/20 09:00 11/19/20 07:33 Buspirone Hcl 5 Mg Tablet PO 15 mg DAILY LIBORIO Administration Diphenhydramine HCl 25 mg 11/18/20 00:00 11/20/20 05:56 Diphenhydramine Hcl 50 Mg/Ml Vial IVPUSH 25 mg Q6H LIBORIO Administration Docusate Sodium 100 mg 11/20/20 09:00 Docusate Sodium 100 Mg Capsule PO BID LIBORIO Enoxaparin Sodium 40 mg 11/17/20 22:00 11/19/20 20:33 Enoxaparin Sodium 40 Mg/0.4 Ml Syringe SUBCUT 40 mg Q24H LIBORIO Administration Fluticasone/Vilanterol 1 puff 11/18/20 09:00 11/20/20 07:44 Fluticasone/Vilanterol 100/25 Blst.W.Dev INHALE Not Given DAILY LIBORIO Hydromorphone HCl 1 mg 11/17/20 22:03 11/20/20 05:57 Hydromorphone Hcl 1 Mg/Ml Syringe IVPUSH 1 mg Q4H PRN Administration Pain, Severe (Pain Scale 7-10) Hydroxyzine HCl 25 mg 11/18/20 09:00 11/19/20 07:37 Hydroxyzine Hcl 25 Mg Tablet PO 25 mg DAILY LIBORIO Administration Piperacillin Sod/Tazobactam 50 mls @ 100 mls/hr 11/18/20 00:00 11/20/20 07:14 Sod 3.375 gm/ Sodium Chloride IV Infused Q6H LIBORIO Infusion Sodium Chloride 1,000 mls @ 125 mls/hr 11/18/20 16:00 11/20/20 07:21 Ns IVCONT 125 mls/hr .Q8H LIBORIO Administration Metronidazole 500 mg in 100 mls @ 100 mls/hr 11/18/20 16:00 11/20/20 07:17 Flagyl IV 100 mls/hr Q8H LIBORIO Administration Lisinopril 2.5 mg 11/18/20 09:00 11/19/20 11:08 Lisinopril 2.5 Mg Tablet PO Not Given DAILY LIBORIO Protocol Montelukast Sodium 10 mg 11/18/20 21:00 11/19/20 20:33 Montelukast Sodium 10 Mg Tablet PO 10 mg BEDTIME LIBORIO Administration Ondansetron HCl 4 mg 11/17/20 22:04 11/20/20 01:29 Ondansetron Hcl 4 Mg/2 Ml Vial IVPUSH 4 mg Q6H PRN Administration Nausea Oxycodone HCl 5 mg 11/20/20 07:15 Oxycodone Hcl Immed Release 5 Mg Tablet PO Q4H PRN Pain, Moderate (Pain Scale 4-6 Polyethylene Glycol 17 gm 11/20/20 09:00 Polyethylene Glycol 3350 17 Gm Powd.Pack PO DAILY LIBORIO Pregabalin 150 mg 11/18/20 09:00 11/19/20 07:33 Pregabalin 150 Mg Capsule PO 150 mg DAILY LIBORIO Administration Sodium Chloride 3 ml 11/18/20 00:00 11/20/20 07:21 0.9 % Sodium Chloride Flush 3 Ml Syringe IVFLUSH Not Given QSHIFT LIBORIO Sumatriptan Succinate 100 mg 11/18/20 09:00 11/19/20 12:07 Sumatriptan Succinate 100 Mg Tablet PO 100 mg DAILY PRN Administration MIGRANE Tiotropium [place] 1 puff 11/18/20 09:00 11/20/20 07:44 Tiotropium [place] 18 Mcg Cap.W.Dev INHALE Not Given DAILY LIBORIO Tizanidine HCl 2 mg 11/18/20 09:00 11/19/20 20:33 Tizanidine Hcl 4 Mg Tablet PO 2 mg TID LIBORIO Administration <Nova Dennis PA-C - Last Filed: 11/20/20 08:32> Time Spent With Patient Time: Total time spent is greater than 50% in coordination of care (as documented) at patient's floor/unit and/or counseling patient: <VICKY Prado Last Filed: 11/20/20 08:32> Time with patient: 15 - 24 minutes <VICKY Prado Last Filed: 11/20/20 08:32> Quality Stroke Does the patient have a stroke diagnosis?: No <Nova Dennis PA-C - Last Filed: 11/20/20 08:32> VTE Prior VTE?: No <Nova Dennis PA-C - Last Filed: 11/20/20 08:32> VTE Risk Level:: Medical - moderate - high <Nova Dennis PA-C - Last Filed: 11/20/20 08:32> VTE Device Contraindication: N/A - Device Ordered <Nova Dennis PA-C - Last Filed: 11/20/20 08:32> VTE Drug Contraindication: N/A - Med Ordered <Nova Dennis PA-C - Last Filed: 11/20/20 08:32>
[2020-11-20] MEDS: busPIRone HCl 5 MG TABLET 15 MG PO (09:10)
[2020-11-20] MEDS: lisinopriL 2.5 MG TABLET PO (09:10)
[2020-11-20] MEDS: buPROPion HCl XL 150 MG TAB.ER.24H PO (09:11)
[2020-11-20] MEDS: Docusate Sodium 100 MG CAPSULE PO ×2 (09:11→21:11)
[2020-11-20] MEDS: TiZANidine HCL 4 MG TABLET 2 MG PO ×3 (09:11→21:11)
[2020-11-20] MEDS: hydrOXYzine HCL 25 MG TABLET PO (09:11)
[2020-11-20] MEDS: Pregabalin 150 MG CAPSULE PO (09:11)
[2020-11-20] MEDS: SUMAtriptan succinate 100 MG TABLET PO (12:24)
--- NOTE | 2020-11-20 13:29 | MHC.CM.PN ---
PER REVIEW OF REPORTS, PATIENT IS ADVANCE DIET TO SIPS IF TOLERATE, INCREASE DIET POSSIBLE DC TO HOME TUESDAY 11/21. CASE MANAGEMENT FOLLOWING.
[2020-11-20 16:00] VITALS: BP 120/65; PULSE 57; RESP 18; TEMP 36.4; O2SAT 95
[2020-11-20 20:08] VITALS: BP 121/77; PULSE 55; RESP 12; TEMP 37.3; O2SAT 90
[2020-11-20] MEDS: Enoxaparin Sodium 40 MG/0.4 ML SYRINGE SUBCUT (21:11)
[2020-11-20] MEDS: Montelukast Sodium 10 MG TABLET PO (21:11)
[2020-11-20] MEDS: Zolpidem Tartrate 5 MG TABLET PO (22:04)
[2020-11-20 23:56] VITALS: BP 91/48; PULSE 60; RESP 12; TEMP 37.1; O2SAT 90
[2020-11-21] MEDS: metroNIDAZOLE/NS 500 MG/100 ML PIGGYBACK 100 MG IV ×2 (00:24→07:41)
[2020-11-21] MEDS: ondansetron HCL 4 MG/2 ML VIAL IVPUSH ×3 (00:36→13:22)
[2020-11-21] MEDS: HYDROmorphone HCl 1 MG/ML SYRINGE IVPUSH ×3 (04:00→12:17)
[2020-11-21] MEDS: Butalb/Acetamin/Caff 50/325/40 TABLET 1 TAB PO ×2 (04:00→08:17)
[2020-11-21] MEDS: diphenhydrAMINE HCL 50 MG/ML VIAL 25 MG IVPUSH ×2 (05:45→12:11)
[2020-11-21] MEDS: Piperacillin Sodium/Tazobactam 3.375 GM in 0.9 % Sodium Chloride 50 ML IV ×2 (05:45→12:11)
[2020-11-21 06:00] VITALS: BMI 33.1
[2020-11-21] MEDS: 0.9 % Sodium Chloride 1,000 ML 125 ML IVCONT (06:33)
--- NOTE | 2020-11-21 07:40 | PM.PNGS ---
Subjective Subjective Date of Service: 11/21/20 <Nova Dennis PA-C - Last Filed: 11/21/20 07:43> 11/21/20 <Ramses Rabago MD - Last Filed: 11/21/20 09:48> Interval history: Pain improved. Continues to c/o nausea. Had this prior to admission- worsening nausea following eating. WAnts solid food. <Nova Dennis PA-C - Last Filed: 11/21/20 07:43> Physical Exam Vital Signs: Vital Signs: Last Vital Signs Temp 98.7 F 11/20/20 23:56 Pulse 60 11/20/20 23:56 Resp 12 11/20/20 23:56 BP 91/48 L 11/20/20 23:56 Pulse Ox 90 L 11/20/20 23:56 Body Mass Index 33.1 <Nova Dennis PA-C - Last Filed: 11/21/20 07:43> Const: General: healthy appearing, comfortable, no acute distress and alert <Nova Dennis PA-C - Last Filed: 11/21/20 07:43> Orientation/consciousness: patient oriented x3 <Nova Dennis PA-C - Last Filed: 11/21/20 07:43> Resp: Effort & Inspection: normal respiratory effort <Nova Dennis PA-C - Last Filed: 11/21/20 07:43> GI: Inspection: No distended <Nova Dennis PA-C - Last Filed: 11/21/20 07:43> Palpation (GI): Soft to palpation and Tenderness to palpation present (GI) (mild, RLQ) <Nova Dennis PA-C - Last Filed: 11/21/20 07:43> Skin: General skin exam: no rashes or lesions noted <VICKY Prado Last Filed: 11/21/20 07:43> Neuro: General: patient oriented x3 <Nova Dennis PA-C - Last Filed: 11/21/20 07:43> Procedures Date of Service Date of Service: 11/21/20 <Nova Dennis PA-C - Last Filed: 11/21/20 07:43> Progress Note: A&P Assessment and plan (1) Abdominal pain: Status: Acute <Nova Dennis PA-C - Last Filed: 11/21/20 07:43> Assessment and Plan: Nausea persistent- seems more of chronic problem. VSS. Abd exam improved- remains soft, non distended, tender at RLQ. Advance to solid diet. On miralax/colace for bowel regimen. Encouraged OOB/ambulation. Seen by GI- outpatient colonoscopy, endoscopy for nausea. Possible gastroparesis. Awaiting final blood culture. On zosyn. Possibly home later today. <Nova Dennis PA-C - Last Filed: 11/21/20 07:43> Assessment and Plan: Patient seen and examined Looks comfortable Passing flatus and had bowel movements Predominant complaint is nausea GI follow-up She wants to eat regular food Otherwise benign exam Nausea appears to be chronic by history If able to tolerate regular diet, possible discharge with GI follow-up She says she is agreeable with the plan <Ramses Rabago MD - Last Filed: 11/21/20 09:48> Fall Risk Details Current Medications: Current Medications Generic Name Dose Route Start Last Admin Trade Name Freq PRN Reason Stop Dose Admin Acetaminophen 650 mg 11/20/20 07:15 Acetaminophen 325 Mg Tablet PO Q6H PRN Pain, Mild (Pain Scale 1-3) Acetaminophen/Butalbital/Caffeine 1 tab 11/18/20 18:40 11/21/20 04:00 Butalb/Acetamin/Caff 50/325/40 Tablet PO 1 tab Q4H PRN Administration Migraine Headache Bupropion HCl 150 mg 11/18/20 09:00 11/20/20 09:11 Bupropion Hcl Xl 150 Mg Tab.Er.24h PO 150 mg DAILY LIBORIO Administration Buspirone HCl 15 mg 11/18/20 09:00 11/20/20 09:10 Buspirone Hcl 5 Mg Tablet PO 15 mg DAILY LIBORIO Administration Diphenhydramine HCl 25 mg 11/18/20 00:00 11/21/20 05:45 Diphenhydramine Hcl 50 Mg/Ml Vial IVPUSH 25 mg Q6H LIBORIO Administration Docusate Sodium 100 mg 11/20/20 09:00 11/20/20 21:11 Docusate Sodium 100 Mg Capsule PO 100 mg BID LIBORIO Administration Enoxaparin Sodium 40 mg 11/17/20 22:00 11/20/20 21:11 Enoxaparin Sodium 40 Mg/0.4 Ml Syringe SUBCUT 40 mg Q24H LIBORIO Administration Fluticasone/Vilanterol 1 puff 11/18/20 09:00 11/20/20 07:44 Fluticasone/Vilanterol 100/25 Blst.W.Dev INHALE Not Given DAILY LIBORIO Hydromorphone HCl 1 mg 11/17/20 22:03 11/21/20 04:00 Hydromorphone Hcl 1 Mg/Ml Syringe IVPUSH 1 mg Q4H PRN Administration Pain, Severe (Pain Scale 7-10) Hydroxyzine HCl 25 mg 11/18/20 09:00 11/20/20 09:11 Hydroxyzine Hcl 25 Mg Tablet PO 25 mg DAILY LIBORIO Administration Piperacillin Sod/Tazobactam 50 mls @ 100 mls/hr 11/18/20 00:00 11/21/20 06:20 Sod 3.375 gm/ Sodium Chloride IV Infused Q6H LIBORIO Infusion Metronidazole 500 mg in 100 mls @ 100 mls/hr 11/18/20 16:00 11/21/20 01:30 Flagyl IV Infused Q8H LIBORIO Infusion Lisinopril 2.5 mg 11/18/20 09:00 11/20/20 09:10 Lisinopril 2.5 Mg Tablet PO 2.5 mg DAILY LIBORIO Administration Protocol Montelukast Sodium 10 mg 11/18/20 21:00 11/20/20 21:11 Montelukast Sodium 10 Mg Tablet PO 10 mg BEDTIME LIBORIO Administration Ondansetron HCl 4 mg 11/17/20 22:04 11/21/20 06:33 Ondansetron Hcl 4 Mg/2 Ml Vial IVPUSH 4 mg Q6H PRN Administration Nausea Oxycodone HCl 5 mg 11/20/20 07:15 Oxycodone Hcl Immed Release 5 Mg Tablet PO Q4H PRN Pain, Moderate (Pain Scale 4-6 Polyethylene Glycol 17 gm 11/20/20 09:00 11/20/20 09:10 Polyethylene Glycol 3350 17 Gm Powd.Pack PO 17 gm DAILY LIBORIO Administration Pregabalin 150 mg 11/18/20 09:00 11/20/20 09:11 Pregabalin 150 Mg Capsule PO 150 mg DAILY LIBORIO Administration Sodium Chloride 3 ml 11/18/20 00:00 11/21/20 07:35 0.9 % Sodium Chloride Flush 3 Ml Syringe IVFLUSH Not Given QSHIFT LIBORIO Sumatriptan Succinate 100 mg 11/18/20 09:00 11/20/20 12:24 Sumatriptan Succinate 100 Mg Tablet PO 100 mg DAILY PRN Administration MIGRANE Tiotropium [place] 1 puff 11/18/20 09:00 11/20/20 07:44 Tiotropium [place] 18 Mcg Cap.W.Dev INHALE Not Given DAILY LIBORIO Tizanidine HCl 2 mg 11/18/20 09:00 11/20/20 21:11 Tizanidine Hcl 4 Mg Tablet PO 2 mg TID LIBORIO Administration Zolpidem Tartrate 5 mg 11/20/20 21:52 11/20/20 22:04 Zolpidem Tartrate 5 Mg Tablet PO 5 mg BEDTIME PRN Administration Insomnia <Nova Dennis PA-C - Last Filed: 11/21/20 07:43> Time Spent With Patient Time: Total time spent is greater than 50% in coordination of care (as documented) at patient's floor/unit and/or counseling patient: <Nova Dennis PA-C - Last Filed: 11/21/20 07:43> Time with patient: 15 - 24 minutes <Nova Dennis PA-C - Last Filed: 11/21/20 07:43> Quality Stroke Does the patient have a stroke diagnosis?: No <Nova Dennis PA-C - Last Filed: 11/21/20 07:43> VTE Prior VTE?: No <Nova Dennis PA-C - Last Filed: 11/21/20 07:43> VTE Risk Level:: Medical - moderate - high <Nova Dennis PA-C - Last Filed: 11/21/20 07:43> VTE Device Contraindication: N/A - Device Ordered <Nova Dennis PA-C - Last Filed: 11/21/20 07:43> VTE Drug Contraindication: N/A - Med Ordered <Nova Dennis PA-C - Last Filed: 11/21/20 07:43>
[2020-11-21] MEDS: busPIRone HCl 5 MG TABLET 15 MG PO (07:41)
[2020-11-21] MEDS: Docusate Sodium 100 MG CAPSULE PO (07:41)
[2020-11-21] MEDS: lisinopriL 2.5 MG TABLET PO (07:41)
[2020-11-21] MEDS: Pregabalin 150 MG CAPSULE PO (07:41)
[2020-11-21] MEDS: buPROPion HCl XL 150 MG TAB.ER.24H PO (07:42)
[2020-11-21] MEDS: TiZANidine HCL 4 MG TABLET 2 MG PO (07:42)
[2020-11-21] MEDS: hydrOXYzine HCL 25 MG TABLET PO (07:42)
[2020-11-21 08:00] VITALS: BP 115/63; PULSE 51; RESP 18; TEMP 36.9; O2SAT 92
[2020-11-21] MEDS: Fluticasone/Vilanterol 100/25 BLST.W.DEV 1 PUFF INHALE (08:47)
[2020-11-21 08:52] VITALS: PULSE 62; O2SAT 94
--- NOTE | 2020-11-21 10:52 | P.DS_ITS ---
DS: Providers Provider Date of Service: 11/21/20 Date of admission: 11/17/20 21:58 Primary care physician: Venancio Lomeli NP Consults: 11/19/20 14:17 Consult to Gastroenterology Routine Consulting Provider: Garland Mendiola Reason for consultation: RLQ pain, hx of recurrent diverticulitis Has provider been notified: No 11/20/20 08:30 Consult to Infectious Diseases Routine Consulting Provider: Imani Hendricks Reason for consultation: one positive blood culture, ?contaminant Has provider been notified: No DS: Diagnosis Discharge Diagnosis (1) Abdominal pain: Status: Acute DS: Medications Discharge Medications Home Medications: Home Medications Medication Instructions Recorded Confirmed aspirin 81 mg tablet 81 mg PO DAILY 04/17/20 11/17/20 atorvastatin 20 mg tablet 1 tab PO DAILY 04/17/20 11/17/20 budesonide-formoterol HFA 80 2 puff PO BID 04/17/20 11/17/20 mcg-4.5 mcg/actuation aerosol inhaler (Symbicort) bupropion HCl 150 mg 24 hr tablet, 1 tab PO QAM 04/17/20 11/17/20 extended release calcium carbonate 600 mg (1,500 1 tab PO BID 04/17/20 11/17/20 mg)-vitamin D3 400 unit tablet empagliflozin 10 mg tablet 1 tab PO DAILY 04/17/20 11/17/20 (Jardiance) glimepiride 4 mg tablet 4 mg PO QAM 04/17/20 11/17/20 hydroxyzine HCl 25 mg tablet 1 tab PO DAILY 04/17/20 11/17/20 levocetirizine 5 mg tablet 1 tab PO BEDTIME 04/17/20 11/17/20 omeprazole 20 mg capsule,delayed 2 cap PO BID 04/17/20 11/17/20 release ondansetron HCl 4 mg tablet 1 tab PO Q8H 04/17/20 11/17/20 pregabalin 150 mg capsule 1 cap PO DAILY 04/17/20 11/17/20 sucralfate 1 gram tablet 1 tab PO QIDWMHS 04/17/20 11/17/20 sumatriptan succinate 100 mg tablet 100 mg PO DAILY 04/17/20 11/17/20 tizanidine 2 mg tablet 1 tab PO TID 04/17/20 11/17/20 blood sugar diagnostic #10 ea 09/28/20 11/17/20 lancets 28 gauge #100 ea 09/28/20 11/17/20 albuterol sulfate 90 mcg/actuation 2 puff INHALATION Q4H PRN 10/09/20 11/17/20 aerosol inhaler buspirone 15 mg tablet 1 tab PO DAILY 11/07/20 11/17/20 galcanezumab-gnlm 120 mg/mL 120 mg SUBCUT Q4W 11/07/20 11/17/20 subcutaneous pen injector (Emgality Pen) glimepiride 2 mg tablet 2 mg PO BID@1400,2100 11/07/20 11/17/20 glipizide 2.5 mg tablet, extended 1 tab PO DAILY 11/07/20 11/17/20 release 24 hr lisinopril 2.5 mg tablet 2.5 mg PO DAILY 11/07/20 11/17/20 tiotropium bromide 18 mcg capsule 1 cap INHALATION DAILY 11/07/20 11/17/20 with inhalation device (Spiriva with HandiHaler) zileuton 600 mg tablet,extended 2 tab PO BID 11/07/20 11/17/20 release 12hr mphase Previous Rx's Medication Instructions Recorded hydrocodone 5 mg-acetaminophen 325 1 tab PO Q8H PRN #10 tab 11/11/20 mg tablet levofloxacin 750 mg tablet 750 mg PO DAILY #6 tab 11/11/20 metronidazole 500 mg tablet 500 mg PO TID #18 tab 11/11/20 DS: Summary Hospital Course Hospital Course: Brief HPI: Pati Rawls is a 60 year old female with a known history of recurrent diverticulitis and was here several days ago treated with iv and then po antibx for this. She went home about a week ago taking Levaquin and Flagyl and this ended today but yesterday she felt worse with increasing pain in the suprapubic and right lower quadrant area consistent with the pain she gets for her diverticulitis. As a result she comes into the ER. no fever or chills, no vomiting but nauseated with eating. has been trying to eat lightly. She had a sigmoid resection here several years ago with Dr Paige but unfortunately it looks like an area in the recto sigmoid junction has had recurrent flare ups.? She had a cscope about 4 yrs ago at [facility] and was told she had polyps. She is due for another one now. Hospital course: The patient was admitted to the surgical service under Dr. Schreiber. She was started on IV zosyn and flagyl and managed conservatively. Care was transferred to Dr. Rabago. Her pain did not seem consistent with diverticulitis. Review of the CT scan showed resolution of the prior inflammatory changes however she had a large stool burden. Her main complaint became nausea. A GI consult was obtained who recommended initiation of a bowel regimen with outpatient colonoscopy and endoscopy for the nausea. She was advanced to a clear liquid diet and this was advanced further as tolerated. Her RLQ pain and nausea improved. On the day of discharge, she was tolerating a solid diet, her pain was improved and she was comfortable and moving her bowels. She did have one positive blood culture for coag negative Staph upon admission. This was discussed with ID and deemed likely a contaminant. Her antibiotics were discontinued. She was discharged to home on 11/21/20 with follow up with her PCP and Dr. Mendiola for outpatient colonoscopy and endoscopy. She can follow up with general surgery if she decides to proceed with repair of her ventral hernias. Status at Discharge Functional status at discharge: independent ambulation Overall status at discharge: patient is progressing back to baseline Time Spent with Patient Time attestation: Total time spent providing and/or coordinating discharge ser vices: Discharge coordination time: Greater than 30 minutes Quality: Stroke Does the patient have a stroke diagnosis?: No Physical Exam Vital Signs: Vital Signs: Last Vital Signs Temp 98.5 F 11/21/20 08:00 Pulse 62 11/21/20 08:52 Resp 18 11/21/20 08:00 BP 115/63 11/21/20 08:00 Pulse Ox 92 11/21/20 08:00 Body Mass Index 33.1 Const: General: comfortable, no acute distress and alert Orientation /consciousness: patient oriented x3 Resp: Effort & Inspection: normal respiratory effort GI: Inspection: No distended Palpation (GI): Soft to palpation, Tenderness to palpation present (GI) (RLQ, mild), no guarding and not rigid Skin: General skin exam: no rashes or lesions noted Neuro: General: patient oriented x3 Extrem: General: Yes no clubbing, cyanosis or edema DS: Data Data Completed and Pending Labs on day of discharge: Preliminary micro results at discharge 11/17/20 17:14 Blood Culture - Preliminary Blood - Venous No growth after 48 hours. Discharge Plan Discharge Patient Disposition: Home, Self-Care Discharge Diagnosis: abdominal pain Referrals: Garland Mendiola MD [Physician] - 1 Week (Repeat colonoscopy, possible upper endoscopy) Venancio Lomeli NP [Primary Care Provider] - 11/26/20 3:00 pm (You have a primary care follow up appointment on November 26 at 3 pm. Please call your doctor's office if you need to reschedule.) Discharge Medications: New docusate sodium [Colace] 100 mg capsule 100 mg PO BID Qty: 60 RF: 0 polyethylene glycol 3350 [Miralax] 17 gram/dose powder 17 g PO DAILY Qty: 119 RF: 0 ondansetron 8 mg tablet,disintegrating 8 mg PO Q8H PRN (Reason: nausea and vomiting) Qty: 30 RF: 0 oxycodone 5 mg tablet 5 mg PO Q6H PRN (Reason: pain) Qty: 12 RF: 0 Continued glipizide 2.5 mg tablet extended release 24hr 1 tab PO DAILY RF: 0 zileuton 600 mg tablet, ER multiphase 12 hr 2 tab PO BID RF: 0 glimepiride 2 mg tablet 2 mg PO BID@1400,2100 RF: 0 Emgality Pen 120 mg/mL Pen Injector 120 mg SUBCUT Q4W RF: 0 lisinopril 2.5 mg Tablet 2.5 mg PO DAILY RF: 0 Spiriva with HandiHaler 18 mcg Capsule, W/Inhalation Device 1 cap INHALATION DAILY RF: 0 buspirone 15 mg tablet 1 tab PO DAILY RF: 0 hydrocodone-acetaminophen 5-325 mg tablet 1 tab PO Q8H PRN (Reason: severe pain) Qty: 10 RF: 0 atorvastatin 20 mg tablet 1 tab PO DAILY RF: 0 glimepiride 4 mg tablet 4 mg PO QAM RF: 0 hydroxyzine HCl 25 mg tablet 1 tab PO DAILY RF: 0 pregabalin 150 mg capsule 1 cap PO DAILY RF: 0 Jardiance 10 mg tablet 1 tab PO DAILY RF: 0 tizanidine 2 mg tablet 1 tab PO TID RF: 0 sumatriptan succinate 100 mg tablet 100 mg PO DAILY RF: 0 sucralfate 1 gram tablet 1 tab PO QIDWMHS RF: 0 ondansetron HCl 4 mg tablet 1 tab PO Q8H RF: 0 omeprazole 20 mg capsule,delayed release(DR/EC) 2 cap PO BID RF: 0 aspirin 81 mg Tablet 81 mg PO DAILY RF: 0 bupropion HCl 150 mg tablet extended release 24 hr 1 tab PO QAM RF: 0 calcium carbonate-vitamin D3 600 mg(1,500mg) -400 unit tablet 1 tab PO BID RF: 0 budesonide-formoterol [Symbicort] 80-4.5 mcg/actuation HFA aerosol inhaler 2 puff PO BID RF: 0 levocetirizine 5 mg tablet 1 tab PO BEDTIME RF: 0 Discontinued levofloxacin 750 mg tablet 750 mg PO DAILY Qty: 6 RF: 0 metronidazole 500 mg tablet 500 mg PO TID Qty: 18 RF: 0 Discharge Orders: Discharge Order (Routine); Ordered 11/21/20 Ordered By: Nova Dennis Diet: advance to usual diet and diabetic diet Activity on Discharge: As tolerated Stand Alone Forms: Patient Portal Discharge page Care Plan Goals: Return to baseline health and activity. Health Concerns: Diabetes Mellitus Plan of Treatment: Discharge to home, follow up in office with Dr. Mendiola for repeat colonoscopy. Assessment: Ms. Rawls is a 60 year old female with PMH including DM, HtN, asthma presenting with c/o RLQ abdominal pain. Patient with history of sig diverticulitis requiring low anterior resection, ileostomy with subsequent ileostomy reversal. She had a recent admission this October and did well with nonoperative management but worsened at home after finishing PO course of abx. CT scan showed resolution of inflammatory changes, no evidence of abscess or perforation. She was initially admitted to the surgical service and treated conservatively for recurrent diverticulitis with IV zosyn and flagyl. Her abdominal pain improved slowly and nausea became the persistent symptom, which was thought secondary to possible gastroparesis. She was eventually able to tolerate a solid diet and is to follow up with GI for outpatient colonoscopy, endoscopy. Discharge Date/Time: 11/21/20 15:28
[2020-11-21] MEDS: SUMAtriptan succinate 100 MG TABLET PO (12:11)
--- NOTE | 2020-11-21 14:57 | MHC.CM.PN ---
PATIENT IS DISCHARGED HOME - SELF CARE. SPOUSE TO TRANSPORT. RN AWARE OF PLAN. IMM 11/21 IN CHART
--- NOTE | 2020-11-21 15:12 | MHC.CLN ---
FOLLOW UP DIET=DIABETIC 1800 KCAL. REPORTS THAT INTAKE IS LIMITED BY [facility]. PATIENT SCHEDULED FOR DISCHARGE TODAY.
== END 2020-11-21 15:28 | disposition home or self-care (01) | DRG 74 ==
LOC: HO.ED 21:56 → HO.EDOVER 23:18 → HO.S3 11-18 16:42
PROVIDERS: Nurse Practitioner Family; Physician Assistant Surgical; Admitting Provider Surgery; Emergency Provider Emergency Medicine; PCP Nurse Practitioner Family; Visit Provider Surgery
DX: E11.43 Type 2 diabetes mellitus with diabetic autonomic (poly)neuropathy (principal); K57.92 Diverticulitis of intestine, part unspecified, without perforation or abscess without bleeding; E78.5 Hyperlipidemia, unspecified; K31.84 Gastroparesis; I10 Essential (primary) hypertension; J45.909 Unspecified asthma, uncomplicated; K59.00 Constipation, unspecified; K43.9 Ventral hernia without obstruction or gangrene; Z20.822 Contact with and (suspected) exposure to COVID-19; Z88.0 Allergy status to penicillin; Z79.82 Long term (current) use of aspirin; Z79.84 Long term (current) use of oral hypoglycemic drugs; Z79.899 Other long term (current) drug therapy
CPT/HCPCS: 36415; 74177; 80048; 80076; 81003; 82947; 83605; 83690; 83735; 84484; 85025; 85610; 87040; 87147; 87205; 87635; 93005; 94640; 99285; J1170; J1200; J1650; J2405; J2543; J2765; Q9967

== ENCOUNTER 2020-11-29 09:07 | Day surgery (SDC) | payer MEDICARE, MEDICAID, SELFPAY ==
--- NOTE | 2020-11-28 09:22 | P.CONAN_ITS ---
Documented by User: Ann Diazney 11/28/20 09:25 HPI - Anesthesia Eval Consult details Narrative: 60yo F for Upper Endoscopy and Colonoscopy *multiple med allergies* 11/20/20 [facility] [place]/o [place]ic. PMFSH Active Problems Active Problems: All Active Problems (Updated 11/19/20 @ 13:28 by Nova Dennis PA-C) Abdominal pain (Acute) Hernia of small intestine (Acute) Sepsis (Acute) Nephrolithiasis (Acute) Diabetes 1.5, managed as type 2 (Acute) Past Medical History Medical History Asthma Chronic back pain Depression Diabetes 1.5, managed as type 2 Diverticulitis HTN (hypertension) Migraines Surgical History Surgical History History of cholecystectomy History of hysterectomy History of partial colectomy Social History Social History Household Members: Spouse Housing: House Do you presently have visiting nurse or other home services: No Alcohol intake: never Patient Tobacco Use Status: Never used Tobacco Second Hand Smoke Exposure: Yes Use of substances other than those prescribed or required for medical reasons: No Are you DNR?: No Advance Directives: No Advance Directives Information Provided: Yes Advance Directives Date on File: 10/01/20 Recently lost weight without trying: No Nutrition Risks: No Nutritional Risk Patient : No service: No Current occupational status: disabled Meds Allergies Allergy/AdvReac Type Severity Reaction Status Date / Time Penicillins [PENICILLINS] Allergy Severe RASH Verified 10/09/20 13:08 gabapentin [GABAPENTIN] Allergy Mild ABD PAIN Verified 10/09/20 13:08 esomeprazole [Nexium] Allergy Unknown rash Verified 10/09/20 13:08 famotidine [From PEPCID] Allergy Unknown UPSET Verified 10/09/20 13:08 STOMACH lansoprazole [Prevacid] Allergy Unknown rash Verified 10/09/20 13:08 penicillin V Allergy Unknown stomach Verified 10/09/20 13:08 pains tramadol Allergy Hives Verified 11/29/20 09:14 morphine AdvReac Headache Verified 11/29/20 09:13 From NEXIUM Allergy Unknown RASH Uncoded 01/12/20 14:52 Home Medications Medication Instructions Recorded Confirmed Last Taken Type aspirin 81 mg tablet 81 mg PO DAILY 04/17/20 11/17/20 11/26/20 History atorvastatin 20 mg tablet 1 tab PO DAILY 04/17/20 11/17/20 11/07/20 History budesonide-formoterol HFA 80 2 puff PO BID 04/17/20 11/17/20 11/07/20 History mcg-4.5 mcg/actuation aerosol inhaler (Symbicort) bupropion HCl 150 mg 24 hr tablet, 1 tab PO QAM 04/17/20 11/17/20 11/07/20 History extended release calcium carbonate 600 mg (1,500 1 tab PO BID 04/17/20 11/17/20 11/07/20 History mg)-vitamin D3 400 unit tablet empagliflozin 10 mg tablet 1 tab PO DAILY 04/17/20 11/17/20 11/07/20 History (Jardiance) glimepiride 4 mg tablet 4 mg PO QAM 04/17/20 11/17/20 04/16/20 History hydroxyzine HCl 25 mg tablet 1 tab PO DAILY 04/17/20 11/17/20 11/07/20 History levocetirizine 5 mg tablet 1 tab PO BEDTIME 04/17/20 11/17/20 11/07/20 History omeprazole 20 mg capsule,delayed 2 cap PO BID 04/17/20 11/17/20 11/07/20 History release ondansetron HCl 4 mg tablet 1 tab PO Q8H 04/17/20 11/17/20 11/29/20 History pregabalin 150 mg capsule 1 cap PO DAILY 04/17/20 11/17/20 11/07/20 History sucralfate 1 gram tablet 1 tab PO QIDWMHS 04/17/20 11/17/20 04/15/20 History sumatriptan succinate 100 mg tablet 100 mg PO DAILY 04/17/20 11/17/20 04/15/20 History tizanidine 2 mg tablet 1 tab PO TID 04/17/20 11/17/20 11/07/20 History blood sugar diagnostic #10 ea 09/28/20 11/17/20 Unknown History lancets 28 gauge #100 ea 09/28/20 11/17/20 Unknown History albuterol sulfate 90 mcg/actuation 2 puff INHALATION Q4H PRN 10/09/20 11/17/20 11/07/20 History aerosol inhaler buspirone 15 mg tablet 1 tab PO DAILY 11/07/20 11/17/20 11/07/20 History galcanezumab-gnlm 120 mg/mL 120 mg SUBCUT Q4W 11/07/20 11/17/20 10/27/20 History subcutaneous pen injector (Emgality Pen) glimepiride 2 mg tablet 2 mg PO BID@1400,2100 11/07/20 11/17/20 11/07/20 History glipizide 2.5 mg tablet, extended 1 tab PO DAILY 11/07/20 11/17/20 11/07/20 History release 24 hr lisinopril 2.5 mg tablet 2.5 mg PO DAILY 11/07/20 11/17/20 11/07/20 History tiotropium bromide 18 mcg capsule 1 cap INHALATION DAILY 11/07/20 11/17/20 11/07/20 History with inhalation device (Spiriva with HandiHaler) zileuton 600 mg tablet,extended 2 tab PO BID 11/07/20 11/17/20 11/07/20 History release 12hr mphase Exam Exam Date and Time: November 28, [id number] Pertinent Lab Results Pertinent Lab Results: Laboratory Tests 11/20/20 11/20/20 05:34 05:34 WBC 12.2 H Hgb 10.0 L Hct 32.4 L Plt Count 305 Sodium 140 Potassium 3.7 Chloride 113 H Carbon Dioxide 22 BUN 6 L Creatinine 0.78 Narrative Narrative: EKG 10/2020 Vent. Rate : 073 BPM ? ? Atrial Rate : 073 BPM ?? P-R Int : 150 ms? QRS Dur : 080 ms ? ? QT Int : 392 ms ? ? ? P-R-T Axes : 026 023 019 degrees ?? QTc Int : 431 ms ? Normal sinus rhythm Normal ECG When compared with ECG of 10-FEB-2011 14:28, No significant change was found Assessment and Plan Assessment Anesthesia Assessment: Chart Reviewed Documented by User: Analisa Lorenzo MD 11/29/20 09:57 PMFSH Past Medical History Medical History Asthma Chronic back pain Depression Diabetes 1.5, managed as type 2 Diverticulitis HTN (hypertension) Migraines Surgical History Surgical History History of cholecystectomy History of hysterectomy History of partial colectomy History of Problems with Anesthesia: No Social History Social History Household Members: Spouse Housing: House Do you presently have visiting nurse or other home services: No Alcohol intake: never Patient Tobacco Use Status: Never used Tobacco Second Hand Smoke Exposure: Yes Use of substances other than those prescribed or required for medical reasons: No Are you DNR?: No Advance Directives: No Advance Directives Information Provided: Yes Advance Directives Date on File: 10/01/20 Recently lost weight without trying: No Nutrition Risks: No Nutritional Risk Patient : No service: No Current occupational status: disabled Meds Allergies Allergy/AdvReac Type Severity Reaction Status Date / Time Penicillins [PENICILLINS] Allergy Severe RASH Verified 10/09/20 13:08 gabapentin [GABAPENTIN] Allergy Mild ABD PAIN Verified 10/09/20 13:08 esomeprazole [Nexium] Allergy Unknown rash Verified 10/09/20 13:08 famotidine [From PEPCID] Allergy Unknown UPSET Verified 10/09/20 13:08 STOMACH lansoprazole [Prevacid] Allergy Unknown rash Verified 10/09/20 13:08 penicillin V Allergy Unknown stomach Verified 10/09/20 13:08 pains tramadol Allergy Hives Verified 11/29/20 09:14 morphine AdvReac Headache Verified 11/29/20 09:13 From NEXIUM Allergy Unknown RASH Uncoded 01/12/20 14:52 Home Medications Medication Instructions Recorded Confirmed Last Taken Type aspirin 81 mg tablet 81 mg PO DAILY 04/17/20 11/17/20 11/26/20 History atorvastatin 20 mg tablet 1 tab PO DAILY 04/17/20 11/17/20 11/07/20 History budesonide-formoterol HFA 80 2 puff PO BID 04/17/20 11/17/20 11/07/20 History mcg-4.5 mcg/actuation aerosol inhaler (Symbicort) bupropion HCl 150 mg 24 hr tablet, 1 tab PO QAM 04/17/20 11/17/20 11/07/20 History extended release calcium carbonate 600 mg (1,500 1 tab PO BID 04/17/20 11/17/20 11/07/20 History mg)-vitamin D3 400 unit tablet empagliflozin 10 mg tablet 1 tab PO DAILY 04/17/20 11/17/20 11/07/20 History (Jardiance) glimepiride 4 mg tablet 4 mg PO QAM 04/17/20 11/17/20 04/16/20 History hydroxyzine HCl 25 mg tablet 1 tab PO DAILY 04/17/20 11/17/20 11/07/20 History levocetirizine 5 mg tablet 1 tab PO BEDTIME 04/17/20 11/17/20 11/07/20 History omeprazole 20 mg capsule,delayed 2 cap PO BID 04/17/20 11/17/20 11/07/20 History release ondansetron HCl 4 mg tablet 1 tab PO Q8H 04/17/20 11/17/20 11/29/20 History pregabalin 150 mg capsule 1 cap PO DAILY 04/17/20 11/17/20 11/07/20 History sucralfate 1 gram tablet 1 tab PO QIDWMHS 04/17/20 11/17/20 04/15/20 History sumatriptan succinate 100 mg tablet 100 mg PO DAILY 04/17/20 11/17/20 04/15/20 History tizanidine 2 mg tablet 1 tab PO TID 04/17/20 11/17/20 11/07/20 History blood sugar diagnostic #10 ea 09/28/20 11/17/20 Unknown History lancets 28 gauge #100 ea 09/28/20 11/17/20 Unknown History albuterol sulfate 90 mcg/actuation 2 puff INHALATION Q4H PRN 10/09/20 11/17/20 11/07/20 History aerosol inhaler buspirone 15 mg tablet 1 tab PO DAILY 11/07/20 11/17/2021 History galcanezumab-gnlm 120 mg/mL 120 mg SUBCUT Q4W 11/07/20 11/17/20 10/27/20 History subcutaneous pen injector (Emgality Pen) glimepiride 2 mg tablet 2 mg PO BID@1400,2100 11/07/20 11/17/20 11/07/20 History glipizide 2.5 mg tablet, extended 1 tab PO DAILY 11/07/20 11/17/20 11/07/20 History release 24 hr lisinopril 2.5 mg tablet 2.5 mg PO DAILY 11/07/20 11/17/20 11/07/20 History tiotropium bromide 18 mcg capsule 1 cap INHALATION DAILY 11/07/20 11/17/20 11/07/20 History with inhalation device (Spiriva with HandiHaler) zileuton 600 mg tablet,extended 2 tab PO BID 11/07/20 11/17/20 11/07/20 History release 12hr mphase Exam Airway Mallampati Class: II Neck ROM: Full Loose/Missing/Broken Teeth: Yes, Upper and Lower Heart: RRR Lungs: CTA Assessment and Plan Assessment Anesthesia Assessment: Anesthesia Plan Discussed Final Anesthetic Review History of Problems with Anesthesia: No NPO: Yes ASA Class: II and III Final Preanesthetic Review: Meds/Allgs Chart Reviewed, Consent Obtained/Reviewed and Anes Risks/Benef Reviewed Patient Risk: Low Procedure Risk: Intermediate Anesthetic Plan Anesthetic Plan: MAC: Disposition: Standard PACU
[2020-11-29 09:16] VITALS: BMI 31.8
[2020-11-29 09:19] VITALS: BP 144/74; PULSE 89; RESP 16; TEMP 36.7; O2SAT 96
--- NOTE | 2020-11-29 09:19 | MHC.SHP ---
Pre-Procedural Eval Section A Date of Service: 11/29/20 Section B Chief Complaint: diverticulitis of intestine,abdominal pain, Details of Present Illness: nausea possibel gastroparesis Relevant Family History (Specify if Yes): No Relevant Social History: None Present Medications: see Short Stay Collaborative assessment Medical History: Significant History (Asthma Chronic back pain Depression Diabetes 1.5, managed as type 2 Diverticulitis HTN (hypertension) Migraines) History of Previous Operations: Relevant previous surgery/procedure and date(s) (History of cholecystectomy History of hysterectomy History of partial colectomy) Allergies: Allergies Allergy/AdvReac Type Severity Reaction Status Date / Time Penicillins [PENICILLINS] Allergy Severe RASH Verified 10/09/20 13:08 gabapentin [GABAPENTIN] Allergy Mild ABD PAIN Verified 10/09/20 13:08 esomeprazole [Nexium] Allergy Unknown rash Verified 10/09/20 13:08 famotidine [From PEPCID] Allergy Unknown UPSET Verified 10/09/20 13:08 STOMACH lansoprazole [Prevacid] Allergy Unknown rash Verified 10/09/20 13:08 penicillin V Allergy Unknown stomach Verified 10/09/20 13:08 pains tramadol Allergy Hives Verified 11/29/20 09:14 morphine AdvReac Headache Verified 11/29/20 09:13 From NEXIUM Allergy Unknown RASH Uncoded 01/12/20 14:52 Review of Systems Sugical H&P ROS: Negative: Constitution, Cardiovascular, Respiratory, Neurological, Psychiatric, Hem-Onc, Allergic/Immunologic, Gastrointestinal, Genitourinary, Musculoskeletal, Integumentary, Endocrine and Eyes/Ears/Nose/Throat Exam Surgical H&P Exam: Normal: HEENT, Normal: Heart, Normal: Lungs, Normal: Extremities, Normal: Abdomen, Normal: Skin and Normal: Neurological Plan Diagnosis/Plan: Unchanged I have reviewed the history and physical and performed a pertinent physical examination on my patient. No changes have occurred unless specified.
[2020-11-29 09:20] LABS: Glucose, Whole Blood 173 mg/dL (60-115)
[2020-11-29] MEDS: Lactated Ringers 1,000 ML 100 ML IVCONT (09:48)
--- NOTE | 2020-11-29 10:26 | PM.OP ---
Brief Operative Note Date of Service: 11/29/20 Pre-op diagnosis: nausea, abdo pain, diverticulitis Post-op diagnosis: same Procedure: see op note Surgeon: Garland Mendiola MD Anesthesia: MAC Was an Water[employer]er used for this Procedure?: No Estimated blood loss (mL): 0 Condition: stable Disposition: PACU
--- NOTE | 2020-11-29 10:26 | W.PM.OPN ---
Operative Note Operative Note Date of Service: 11/29/20 Narrative: Operative Information Procedure Description: EGD, Colonoscopy FLEXIBLE TRANSORAL UPPER GASTROINTESTINAL ENDOSCOPY AND COLONOSCOPY PROCEDURE NOTE UPPER ENDOSCOPY Consent: Indications for the procedure and potential complications of bleeding, perforation, reaction to medications and missed diagnosis were discussed with the patient and informed consent was obtained. Instrument: Olympus GIF H 190 J mid size upper endoscope Monitoring: Vital signs and clinical assessment, continuous EKG monitoring, Pulse oximetry, Carbon Dioxide monitoring and blood pressure monitoring were done throughout the procedure. Procedure: The patient was placed in the left lateral decubitis position and pre-procedure medications were administered and a bite block was placed. The endoscope was inserted into the mouth and advanced under direct vision to the third part of duodenum. A careful inspection was made as the upper endoscope was withdrawn including a retroflexed examination of the proximal stomach; Findings and interventions are described below. Findings: Larynx:normal Esophagus: GE junction at 33 cm, diaphragm hiatus not easily identified and I wasn;t sure if in fact she had a large hiatal hernia, the esophagus had nodular appearing mucosa with granularity, random bx taken Stomach: Marked inflamamtion and redness in distal stomach. Biopsies were obtained. Grade 2 flap valve on retroflexed examination of the cardia. several fundic gland polyps noted, x2 were 10-12 mm in length and removed with cold snare. Duodenum: Normal bulb and descending duodenum, bx taken Intervention: Biopsies as noted above COLONOSCOPY Instrument: Olympus variable stiffness pediatric scope 190L Colonoscopy Monitoring: Vital signs and clinical assessment, continuous EKG monitoring, Pulse oximetry, Carbon Dioxide monitoring and blood pressure monitoring were done throughout the procedure. Colon withdrawal time was [] minutes. Procedure: The patient was placed in the left lateral decubitis position and pre-procedure medications were administered. After a digital rectal examination of the ano-rectum, the video colonoscope was inserted into the rectum and advanced through the colon to the cecum/TI. The colonoscope was slowly withdrawn in a retrograde panoramic fashion and the colon mucosa was carefully examined including a retroflexed view of the rectum. Findings and interventions are described below. Procedure Difficulty:moderate Findings: Terminal Ileum-not intubated due to looping Cecum:normal Ascending Colon: several diverticula seen Transverse Colon -several diverticula seen Descending Colon: many small diverticula seen colo-colonic anastomosis seen-- side to side Rectum: Retroflexion with small internal hemorrhoids, grade I Anorectum - normal Colon preparation: [place] Bowel Preparation Scale Right colon; borderline 2 Transverse colon: 2 Left colon; 2 (0 = Unprepared colon segment with mucosa not seen due to solid stool that cannot be cleared. 1 = Portion of mucosa of the colon segment seen, but other areas of the colon segment not well seen due to staining, residual stool and/or opaque liquid. 2 = Minor amount of residual staining, small fragments of stool and/or opaque liquid, but mucosa of colon segment seen well. 3 = Entire mucosa of colon segment seen well with no residual staining, small fragments of stool or opaque liquid) Impression and Post Procedure Diagnosis: Endoscopy Findings: possible hiatal hernia gastritis fundic gland polyps Colonoscopy Findings: internal hemorrhoids diverticular disease Plan: Await Pathology results Repeat Colonoscopy in 5 years due to fair prep on right side or earlier if clinically indicated High fiber diet leaflet avoid straining at stool, epsom salts and sitz bath, anusol supps or cream Ba swallow for further delineation of whether she has a hiatal hernia and its size Above findings were reviewed with the patient and relevant handouts were provided if indicated.
[2020-11-29 11:10] VITALS: BP 97/48; PULSE 64; RESP 18; TEMP 36.4; O2SAT 99
[2020-11-29 11:25] VITALS: BP 134/65; PULSE 64; RESP 18; TEMP 36.4; O2SAT 96
== END 2020-11-29 11:55 | disposition home or self-care (01) ==
PROVIDERS: PCP Nurse Practitioner Family; Visit Provider Internal Medicine Gastroenterology
PROC: (CPT 43251; principal; 2020-11-29 10:30)
DX: K57.30 Diverticulosis of large intestine without perforation or abscess without bleeding (principal); K64.0 First degree hemorrhoids; K29.50 Unspecified chronic gastritis without bleeding; K31.7 Polyp of stomach and duodenum; K44.9 Diaphragmatic hernia without obstruction or gangrene; E13.9 Other specified diabetes mellitus without complications; Z90.49 Acquired absence of other specified parts of digestive tract; Z79.84 Long term (current) use of oral hypoglycemic drugs; Z79.82 Long term (current) use of aspirin; Z79.899 Other long term (current) drug therapy
CPT/HCPCS: 43251; 43239; G0121; 82947; 88305; 88312; 88342; J1610; Q9967

== ENCOUNTER → 2020-12-03 09:10 | Outpatient (BNVA) | payer MEDICARE, MEDICAID, SELFPAY | PROVIDERS: PCP Nurse Practitioner Family; Visit Provider Surgery | DX: R10.9 Unspecified abdominal pain (principal); K44.9 Diaphragmatic hernia without obstruction or gangrene | CPT/HCPCS: 99215; Q3014 ==

== ENCOUNTER 2020-12-06 08:55 | Outpatient (REF) | payer MEDICARE, MEDICAID, SELFPAY ==
--- NOTE | ~2020-12-06 | FL_ITS ---
EXAMINATION: FL UPPER GI SERIES AND BARIUM SWALLOW CLINICAL INFORMATION: R10.9 - Unspecified abdominal pain. Recent endoscopic findings: Possible hiatal hernia, gastritis, fundic gland polyps. COMPARISON: CT abdomen and pelvis noncontrast 11/07/2020, endoscopy report 11/29/2020. TECHNIQUE: Upper GI series and barium swallow are performed using fluoroscopic evaluation in addition to multiple fluoroscopic spot views, including cine images during swallowing. The patient is imaged both upright and prone and using both thick and thin barium sulfate along with effervescent granules. Water siphon test performed. Fluoroscopy time: 1.6 minutes DAP: 23.715 Gycm2 Fluoroscopic spot images: 43 FINDINGS: There is normal esophageal motility. The cervical esophagus shows no web or diverticulum, No cervical achalasia. The thoracic esophagus show no obstruction, stricture, or ulceration. There is no hiatal hernia demonstrated. No gastroesophageal reflux. The stomach shows no thickened folds or ulcer crater or outlet obstruction. The duodenal bulb is pliable and without ulcer crater or scarring. The post bulbar duodenum and the upper jejunal mucosal pattern are unremarkable. FL/FL upper GI w Ba Swallow IMPRESSION: 1. Normal esophageal motility. No hiatal hernia or gastroesophageal reflux. 2. No gastric ulcer crater or outlet obstruction.
== END 2020-12-06 08:56 | disposition home or self-care (01) ==
LOC: HO.XRAY 08:55
PROVIDERS: PCP Nurse Practitioner Family; Visit Provider Internal Medicine Gastroenterology
DX: R10.9 Unspecified abdominal pain (principal); K46.9 Unspecified abdominal hernia without obstruction or gangrene
CPT/HCPCS: 74220; 74250

== ENCOUNTER 2020-12-11 14:17 | Inpatient (IN) | payer MEDICARE, MEDICAID, SELFPAY ==
--- NOTE | ~2020-12-11 | CT_ITS ---
EXAMINATION: CT ABDOMEN AND PELVIS WITH CONTRAST CLINICAL INFORMATION: lower abd pain> LLQ. Concern for complicated diverticulitis COMPARISON: CT abdomen pelvis 11/17/2020, 10/08/2020, 09/01/2020 and multiple others TECHNIQUE: Initial manual plate filler film was performed that demonstrated a large amount of dense retained barium in the colon presumably from the patient's recent upper GI. Because of this, the CT scan was not performed. CT/CT abdomen pelvis w con IMPRESSION: CT scan not performed because of dense contrast in the colon.
[2020-12-11 14:51] VITALS: BP 136/71; PULSE 72; RESP 18; TEMP 37.1; O2SAT 96; BMI 31.8
[2020-12-11 16:59] LABS: MANUAL DIFF FLAG NO
[2020-12-11 17:08] LABS: Basophils Absolute Auto 0.1 X10*3/uL (0.0-0.2); Basophils Percent Auto 0.3 % (0-2); Eosinophils Absolute Auto 0.6 X10*3/uL (0.0-0.4); Eosinophils Percent Auto 2.8 % (0-4); Hematocrit 38.5 % (37-47); Imm Gran Abs Auto 0.15 X10*3/uL (0.00-0.03); Imm Gran Pct Auto 0.8 % (0.0-0.4); Lymphocytes Absolute Auto 3.4 X10*3/uL (1.2-4.9); Lymphocytes Percent Auto 17.5 % (20-40); Mean Corpuscular HGB Conc 31.2 g/dl (31.0-35.0); Mean Corpuscular Hemoglobin 25.6 pg (27.0-33.0); Mean Corpuscular Volume 82.3 fL (80-98); Mean Platelet Volume 11.6 fL (9.4-12.3); Monocytes Absolute Auto 0.9 X10*3/uL (0.1-1.2); Monocytes Percent Auto 4.8 % (2-11); Neutrophils Absolute Auto 14.3 X10*3/uL (2.0-8.3); Neutrophils Percent Auto 73.8 % (45-73); Platelet Count 308 X10*3/uL (160-400); Red Blood Count 4.68 X10*6/uL (4.20-5.50); Red Cell Distribution Width 15.9 % (11.0-16.0); White Blood Count 19.3 X10*3/uL (4.8-10.8)
[2020-12-11 17:19] LABS: Glucose Urine UA 500 MG/DL (NEG); Leukocyte Esterase Urine NEG (NEG); Nitrite Urine NEG (NEG); Specific Gravity - Urine 1.015 (1.005-1.025); Urine Blood NEG (NEG); Urine Ketones NEG (NEG); Urine Protein NEG (NEG-TRACE)
[2020-12-11 17:22] LABS: Appearance Urine CLEAR; Color Urine YELLOW
[2020-12-11 17:38] LABS: Alanine Aminotransferase 16 U/L (0-31); Albumin Level 4.4 g/dL (3.5-5.0); Alkaline Phosphatase 129 U/L (39-117); Anion Gap 16 (12-20); Aspartate Amino Transferase 12 U/L (5-31); Bilirubin Total 0.3 mg/dL (0.0-1.0); Blood Urea Nitrogen 14 mg/dL (9-16); Calcium 9.7 mg/dL (8.4-10.2); Carbon Dioxide 21 mmol/L (22-29); Chloride 108 mmol/L (96-108); Creatinine Clr Calc Pharmacy 68.1; Estimated Glomerular Filt Rate > 60; Glucose Random 82 mg/dL (60-115); Potassium 3.9 mmol/L (3.3-5.1); Sodium 141 mmol/L (135-145); Total Protein 7.9 g/dL (6.5-8.0)
[2020-12-11 20:00] VITALS: BP 136/71; PULSE 72; RESP 18; TEMP 37.1; O2SAT 96
--- NOTE | 2020-12-11 20:14 | ED_ITS ---
HPI - Abdominal Pain General Chief Complaint: Abdominal Pain Stated Complaint: abd pain x3 days Time Seen by Provider: 12/11/20 19:57 Source: patient Mode of arrival: ambulatory History of Present Illness HPI narrative: 60-year-old female with a past medical history of asthma, depression, diabetes, HTN, recent admission for facility on 11/07 and 11/17 for recurrent diverticulitis presenting to the ED complaining of recurrent lower abdominal pain > LLQ with associated nausea and decreased p.o. intake x4 days. Also reports chills. Denies fever, vomiting, diarrhea/constipation, dysuria/hematuria. MD elicited complaint: abdominal pain Pertinent past history: diverticulitis Related Data Home Medications Medication Instructions Recorded Confirmed atorvastatin 20 mg tablet 1 tab PO DAILY 04/17/20 12/11/20 bupropion HCl 150 mg 24 hr tablet, 1 tab PO QAM 04/17/20 12/11/20 extended release calcium carbonate 600 mg (1,500 1 tab PO BID 04/17/20 12/11/20 mg)-vitamin D3 400 unit tablet empagliflozin 10 mg tablet 1 tab PO DAILY 04/17/20 12/11/20 (Jardiance) glimepiride 4 mg tablet 4 mg PO QAM 04/17/20 12/11/20 levocetirizine 5 mg tablet 1 tab PO BEDTIME 04/17/20 12/11/20 omeprazole 20 mg capsule,delayed 2 cap PO BID 04/17/20 12/11/20 release pregabalin 150 mg capsule 1 cap PO DAILY 04/17/20 12/11/20 sucralfate 1 gram tablet 1 tab PO QIDWMHS 04/17/20 12/11/20 sumatriptan succinate 100 mg tablet 100 mg PO DAILY MRX1 PRN 04/17/20 12/11/20 blood sugar diagnostic #10 ea 09/28/20 12/03/20 lancets 28 gauge #100 ea 09/28/20 12/03/20 albuterol sulfate 90 mcg/actuation 2 puff INHALATION Q4H PRN 10/09/20 12/11/20 aerosol inhaler buspirone 15 mg tablet 1 tab PO DAILY 11/07/20 12/11/20 galcanezumab-gnlm 120 mg/mL 120 mg SUBCUT Q4W 11/07/20 12/11/20 subcutaneous pen injector (Emgality Pen) glimepiride 2 mg tablet 2 mg PO BID@1400,2100 11/07/20 12/11/20 glipizide 2.5 mg tablet, extended 1 tab PO DAILY 11/07/20 12/11/20 release 24 hr lisinopril 2.5 mg tablet 2.5 mg PO DAILY 11/07/20 12/11/20 zileuton 600 mg tablet,extended 2 tab PO BID 11/07/20 12/11/20 release 12hr mphase aspirin 81 mg tablet,delayed 81 mg PO DAILY 12/11/20 12/11/20 release budesonide 180 mcg/actuation 1 puff PO BID 12/11/20 12/11/20 breath activated powder inhaler (Pulmicort Flexhaler) ldpcpxbkiw-rqjnpka-fkygpoqy 50 1 cap PO Q6H PRN 12/11/20 12/11/20 mg-325 mg-40 mg capsule cromolyn 4 % eye drops 1 drp OPHTHALMIC (EYE) QID 12/11/20 12/11/20 hydralazine 25 mg tablet 1 tab PO DAILY 12/11/20 12/11/20 levalbuterol HCl 0.31 mg/3 mL 0.31 mg INHALATION QID PRN 12/11/20 12/11/20 solution for nebulization nystatin 100,000 unit/gram topical 1 appl TOPICAL BID 12/11/20 12/11/20 powder tiotropium bromide 2.5 2 puff INHALATION DAILY 12/11/20 12/11/20 mcg/actuation mist for inhalation (Spiriva Respimat) tizanidine 4 mg tablet 1 tab PO Q8H 12/11/20 12/11/20 zolpidem 5 mg tablet 1 tab PO BEDTIME PRN 12/11/20 12/11/20 Previous Rx's Medication Instructions Recorded docusate sodium 100 mg capsule 100 mg PO BID #60 cap 11/21/20 (Colace) ondansetron 8 mg disintegrating 8 mg PO Q8H PRN #30 tab 11/21/20 tablet oxycodone 5 mg tablet 5 mg PO Q6H PRN #12 tab 11/21/20 Allergies Allergy/AdvReac Type Severity Reaction Status Date / Time Penicillins [PENICILLINS] Allergy Severe RASH Verified 12/03/20 09:17 gabapentin [GABAPENTIN] Allergy Mild ABD PAIN Verified 12/03/20 09:17 esomeprazole [Nexium] Allergy Unknown rash Verified 12/03/20 09:17 famotidine [From PEPCID] Allergy Unknown UPSET Verified 12/03/20 09:17 STOMACH lansoprazole [Prevacid] Allergy Unknown rash Verified 12/03/20 09:17 penicillin V Allergy Unknown stomach Verified 12/03/20 09:17 pains tramadol Allergy Hives Verified 12/03/20 09:17 morphine AdvReac Headache Verified 12/03/20 09:17 From NEXIUM Allergy Unknown RASH Uncoded 01/12/20 14:52 Review of Systems Review of Systems Constitutional: No Fever, + Chills, No Fatigue, No Malaise ENT/Mouth: No Ear Pain, No Nasal Congestion, No Swallowing Difficulty Eyes: No Eye Pain, No Swelling, No Vision Changes Cardiovascular: No Chest Pain, No SOB Respiratory: No Cough, No Dyspnea Gastrointestinal: + Nausea, No Vomiting, No Diarrhea, No Constipation, + Abdominal pain Genitourinary: No Dysuria, No Urinary Frequency, No Hematuria, No Flank Pain Musculoskeletal: No joint pain, No Myalgias, No Joint Swelling Skin: No Skin Lesions, No rash Neuro: No Weakness, No Numbness, No Headache Yes all other systems are reviewed and are negative Physical Exam Vital Signs: Vital Signs: Last Vital Signs Temp 98.7 F 12/11/20 20:00 Pulse 72 12/11/20 20:00 Resp 18 12/11/20 20:00 BP 136/71 12/11/20 20:00 Pulse Ox 96 12/11/20 20:00 Body Mass Index 31.8 Const: General: cooperative and healthy appearing Orientatio n/consciousness: patient oriented x3 Limitations: no limitations HENMT: Head: Yes normal to inspection Ears: hearing grossly normal bilaterally General nose exam: Normal external nose present Face and sinus: Yes normal facial exam Eyes: General: appearance normal, both eyes and all related structures EOM: EOMs intact bilaterally Neck: Neck: Yes normal visual inspection Resp: Effort & Inspection: normal respiratory effort and no respiratory distress Cardio: Rate: regular rate GI: Inspection: Yes normal to inspection Palpation (GI): Soft to palpation, Tenderness to palpation present (GI) (Lower abdomen) in the LLQ, no guarding and not rigid Skin: Rashes: no rashes Wounds: no wounds Neuro: General: patient oriented x3 Gait exam (Neuro): Normal gait present Extrem: General: Yes normal to inspection Course Course Course Narrative: -2018-- leukocytosis of 19.3 >> empiric IV Levaquin and Flagyl ordered. -labs otherwise reassuring, UA with glucose/not infected -2241--patient on CT table however still has barium contrast in abdomen from study last week which will inhibit CT today, unable to perform CT, will be nondiagnostic per radiologist. Case discussed with Dr. Rabago, surgery, he will evaluate patient in the ED -patient will be admitted to surgical service for observation/further management MDM - Abdominal Pain MDM Narrative Medical decision making narrative: 60-year-old female with a past medical history of asthma, depression, diabetes, HTN, recent admission for facility on 11/07 and 11/17 for recurrent diverticulitis presenting to the ED complaining of recurrent lower abdominal pain > LLQ with associated nausea and decreased p.o. intake x4 days. On exam VSS, NAD, abdomen soft and lower/LLQ TTP, no rebound or guarding. Concern for recurrent/complicated diverticulitis. Low concern for SBO/appendicitis or cholecystitis/pancreatitis Plan: Repeat labs, UA, repeat CT, IVF, empiric IV antibiotics, anticipate admission Medical Records Attestation: I reviewed the patient's medical records. Lab Data Attestation: I reviewed the patient's lab results. Result diagrams: 12/11/20 16:53 12/11/20 16:53 Labs: Lab Results 12/11/20 12/11/20 12/11/20 Range/Units 16:53 16:53 17:07 WBC 19.3 H (4.8-10.8) X10*3/uL RBC 4.68 D (4.20-5.50) X10*6/uL Hgb 12.0 (12.0-16.0) g/dl Hct 38.5 (37-47) % MCV 82.3 (80-98) fL MCH 25.6 L (27.0-33.0) pg MCHC 31.2 (31.0-35.0) g/dl RDW 15.9 (11.0-16.0) % Plt Count 308 (160-400) X10*3/uL MPV 11.6 (9.4-12.3) fL Immature Gran % (Auto) 0.8 H (0.0-0.4) % Neut % (Auto) 73.8 H (45-73) % Lymph % (Auto) 17.5 L (20-40) % [place] % (Auto) 4.8 (2-11) % Eos % (Auto) 2.8 (0-4) % Baso % (Auto) 0.3 (0-2) % Lymph # (Auto) 3.4 (1.2-4.9) X10*3/uL [place] # (Auto) 0.9 (0.1-1.2) X10*3/uL Eos # (Auto) 0.6 H (0.0-0.4) X10*3/uL Baso # (Auto) 0.1 (0.0-0.2) X10*3/uL Abs Immat Gran (auto) 0.15 H (0.00-0.03) X10*3/uL Absolute Neuts (auto) 14.3 H (2.0-8.3) X10*3/uL Absolute Nucleated RBC 0.000 (0.0-0.012) X10*3/uL Nucleated RBC % (auto) 0.0 (0.0-0.2) /100WBC Sodium 141 (135-145) mmol/L Potassium 3.9 (3.3-5.1) mmol/L Chloride 108 (96-108) mmol/L Carbon Dioxide 21 L (22-29) mmol/L Anion Gap 16 (12-20) BUN 14 D (9-16) mg/dL Creatinine 0.90 (0.5-1.4) mg/dL Estim Creat Clear Calc 68.1 Estimated GFR > 60 Random Glucose 82 (60-115) mg/dL Lactic Acid (0.5-2.0) mmol/L Calcium 9.7 D (8.4-10.2) mg/dL Magnesium 2.1 (1.6-2.6) mg/dL Total Bilirubin 0.3 (0.0-1.0) mg/dL AST 12 (5-31) U/L ALT 16 (0-31) U/L Alkaline Phosphatase 129 H D (39-117) U/L Total Protein 7.9 (6.5-8.0) g/dL Albumin 4.4 (3.5-5.0) g/dL Lipase 12 (8-78) U/L Urine Color YELLOW Urine Appearance CLEAR Urine pH 6.0 (5.0-8.0) Ur Specific [place] 1.015 (1.005-1.025) Urine Protein NEG (NEG-TRACE) MG/DL Urine Glucose (UA) 500 H (NEG) MG/DL Urine Ketones NEG (NEG) MG/DL Urine Blood NEG (NEG) Urine Nitrite NEG (NEG) Ur Leukocyte Esterase NEG (NEG) COVID-19 (MARCI) (Negative) COVID-19 Clin Com 12/11/20 12/11/20 Range/Units 22:44 22:45 WBC (4.8-10.8) X10*3/uL RBC (4.20-5.50) X10*6/uL Hgb (12.0-16.0) g/dl Hct (37-47) % MCV (80-98) fL MCH (27.0-33.0) pg MCHC (31.0-35.0) g/dl RDW (11.0-16.0) % Plt Count (160-400) X10*3/uL MPV (9.4-12.3) fL Immature Gran % (Auto) (0.0-0.4) % Neut % (Auto) (45-73) % Lymph % (Auto) (20-40) % [place] % (Auto) (2-11) % Eos % (Auto) (0-4) % Baso % (Auto) (0-2) % Lymph # (Auto) (1.2-4.9) X10*3/uL [place] # (Auto) (0.1-1.2) X10*3/uL Eos # (Auto) (0.0-0.4) X10*3/uL Baso # (Auto) (0.0-0.2) X10*3/uL Abs Immat Gran (auto) (0.00-0.03) X10*3/uL Absolute Neuts (auto) (2.0-8.3) X10*3/uL Absolute Nucleated RBC (0.0-0.012) X10*3/uL Nucleated RBC % (auto) (0.0-0.2) /100WBC Sodium (135-145) mmol/L Potassium (3.3-5.1) mmol/L Chloride (96-108) mmol/L Carbon Dioxide (22-29) mmol/L Anion Gap (12-20) BUN (9-16) mg/dL Creatinine (0.5-1.4) mg/dL Estim Creat Clear Calc Estimated GFR Random Glucose (60-115) mg/dL Lactic Acid 1.3 (0.5-2.0) mmol/L Calcium (8.4-10.2) mg/dL Magnesium (1.6-2.6) mg/dL Total Bilirubin (0.0-1.0) mg/dL AST (5-31) U/L ALT (0-31) U/L Alkaline Phosphatase (39-117) U/L Total Protein (6.5-8.0) g/dL Albumin (3.5-5.0) g/dL Lipase (8-78) U/L Urine Color Urine Appearance Urine pH (5.0-8.0) Ur Specific [place] (1.005-1.025) Urine Protein (NEG-TRACE) MG/DL Urine Glucose (UA) (NEG) MG/DL Urine Ketones (NEG) MG/DL Urine Blood (NEG) Urine Nitrite (NEG) Ur Leukocyte Esterase (NEG) COVID-19 (MARCI) Negative (Negative) COVID-19 Clin Com See Note Discharge Plan Discharge Clinical Impression: Abdominal pain Patient Disposition: Admitted As Inpatient Prescriptions: No Action glipizide 2.5 mg tablet extended release 24hr 1 tab PO DAILY RF: 0 zileuton 600 mg tablet, ER multiphase 12 hr 2 tab PO BID RF: 0 glimepiride 2 mg tablet 2 mg PO BID@1400,2100 RF: 0 Emgality Pen 120 mg/mL Pen Injector 120 mg SUBCUT Q4W RF: 0 lisinopril 2.5 mg Tablet 2.5 mg PO DAILY RF: 0 buspirone 15 mg tablet 1 tab PO DAILY RF: 0 atorvastatin 20 mg tablet 1 tab PO DAILY RF: 0 glimepiride 4 mg tablet 4 mg PO QAM RF: 0 pregabalin 150 mg capsule 1 cap PO DAILY RF: 0 Jardiance 10 mg tablet 1 tab PO DAILY RF: 0 sumatriptan succinate 100 mg tablet 100 mg PO DAILY MRX1 PRN (Reason: Migraine Headache) RF: 0 sucralfate 1 gram tablet 1 tab PO QIDWMHS RF: 0 omeprazole 20 mg capsule,delayed release(DR/EC) 2 cap PO BID RF: 0 bupropion HCl 150 mg tablet extended release 24 hr 1 tab PO QAM RF: 0 calcium carbonate-vitamin D3 600 mg(1,500mg) -400 unit tablet 1 tab PO BID RF: 0 levocetirizine 5 mg tablet 1 tab PO BEDTIME RF: 0 docusate sodium [Colace] 100 mg capsule 100 mg PO BID Qty: 60 RF: 0 ondansetron 8 mg tablet,disintegrating 8 mg PO Q8H PRN (Reason: nausea and vomiting) Qty: 30 RF: 0 oxycodone 5 mg tablet 5 mg PO Q6H PRN (Reason: pain) Qty: 12 RF: 0 tizanidine 4 mg tablet 1 tab PO Q8H RF: 0 cromolyn 4 % drops 1 drp ophthalmic (eye) QID RF: 0 hydralazine 25 mg tablet 1 tab PO DAILY RF: 0 qavvuhyiqv-imntijz-zousjmow 50-325-40 mg capsule 1 cap PO Q6H PRN (Reason: Headache) RF: 0 zolpidem 5 mg tablet 1 tab PO BEDTIME PRN (Reason: Insomnia) RF: 0 nystatin 100,000 unit/gram powder 1 appl topical BID RF: 0 levalbuterol HCl 0.31 mg/3 mL solution for nebulization 0.31 mg inhalation QID PRN (Reason: Shortness Of Breath) RF: 0 Pulmicort Flexhaler 180 mcg/actuation aerosol powdr breath activated 1 puff PO BID RF: 0 Spiriva Respimat 2.5 mcg/actuation mist 2 puff inhalation DAILY RF: 0 aspirin 81 mg Tablet,Delayed Release (Dr/Ec) 81 mg PO DAILY RF: 0 (DME) blood sugar diagnostic Strip See Rx Instructions ea Not Applicable TID Qty: 10 RF: 0 (DME) lancets 28 gauge misc See Rx Instructions ea topical TID Qty: 100 RF: 0 albuterol sulfate 90 mcg/actuation HFA aerosol inhaler 2 puff inhalation Q4H PRN (Reason: wheezing) RF: 0 PMFSH Past Medical History Attestation statement: The following information was validated with the patient. Medical History Abdominal pain Asthma Chronic back pain Depression Diabetes 1.5, managed as type 2 Diverticulitis Diverticulitis History of diverticulitis HTN (hypertension) Migraines SIRS (systemic inflammatory response syndrome) Surgical History History of cholecystectomy History of hysterectomy History of partial colectomy Social History Social History Household Members: Spouse Housing: House Do you presently have visiting nurse or other home services: No Alcohol intake: never Patient Tobacco Use Status: Never used Tobacco Second Hand Smoke Exposure: Yes Advance Directives: Yes Advance Directives on File: Yes Advance Directives Date on File: 10/01/20 service: No Current occupational status: disabled
[2020-12-11 20:43] LABS: Lipase 12 U/L (8-78); Magnesium 2.1 mg/dL (1.6-2.6)
--- NOTE | 2020-12-11 21:00 | PHA.MEDREC ---
Pharmacy Consult ? Medication Reconciliation Pharmacy has completed the medication reconciliation.
[2020-12-11 23:08] LABS: COVID-19 Test Negative (Negative)
--- NOTE | 2020-12-11 23:10 | PM.HPGS ---
History of Present Illness History of Present Illness Date of Service: 12/13/20 Chief complaint: Abd pain Narrative: Pati Rawls is a 60 year old female who is well known to me, who came to the emergency room today because of about a 4 day history of abdominal pain. She describes is mostly in the lower abdomen. She describes significant nausea as well. She describes nausea as more of a reflux as she does not really have vomiting. She feels that her stomach contents go up all the way into the upper chest. She has had similar problems for the past month. As matter of fact, she was admitted twice last October because of this similar problem. She therefore underwent an EGD and colonoscopy with Dr. Mendiola as an outpatient last November 29 and she was noted to have erythema of the distal stomach, with diverticulosis of the remaining colon. She had a volumes swallow study last week which was unremarkable. She has a history of diverticular disease.? She had previously undergone anterior resection in [address] Paige with a diverting loop ileostomy because of her diverticular disease.? The ileostomy was reversed in 2011. She says she has had about 3 episodes of diverticulitis again since then.? Prior to her admission last month, her last episode of abdominal pain was in 2019. She had a CAT scan last month which showed mild diverticulitis proximal to the staple line in the left colon, and multiple nonobstructing hernias of the abdominal wall. She denies diarrhea constipation. She denies any fever or chills at home. She says she had called the office of Dr. Mendiola yesterday and was instructed to go to the emergency room. Review of Systems Constitutional: Constitutional: Denies chills and Denies fever(s) Cardiovascular: Cardiovascular: Denies chest pain, Denies dyspnea and Denies dyspnea on exertion Respiratory: Respiratory: Denies cough, Denies dyspnea and Denies dyspnea on exertion Gastrointestinal: Gastrointestinal: Denies hematochezia and Denies change in bowel habits Genitourinary: Genitourinary: Denies hematuria Musculoskeletal: Musculoskeletal: Denies back pain and Denies limited range of motion Neurologic: Denies focal weakness and Denies convulsions Psychiatric: Psychiatric: Denies depression and Denies mood swings PMFSH Past Medical History Medical History Abdominal pain Asthma Chronic back pain Depression Diabetes 1.5, managed as type 2 Diverticulitis Diverticulitis History of diverticulitis HTN (hypertension) Migraines SIRS (systemic inflammatory response syndrome) Surgical History Surgical History History of cholecystectomy History of hysterectomy History of partial colectomy Social History Social History Household Members: Spouse Housing: Apartment Do you presently have visiting nurse or other home services: No Alcohol intake: never Patient Tobacco Use Status: Never used Tobacco Second Hand Smoke Exposure: Yes Use of substances other than those prescribed or required for medical reasons: No Currently Displaying Signs/Symptoms of Drug Intoxication Withdrawal: No Have you been hit, kicked, punched, or otherwise hurt by someone within the past year? If so, by whom?: No Do you feel safe in your current relationship?: Yes Is there a partner from a previous relationship who is making you feel unsafe now?: No Are you made to feel afraid or neglected: No Advance Directives: Yes Advance Directives on File: Yes Advance Directives Date on File: 10/01/20 Do you have thoughts of harming others: None Do you have a plan to hurt others: No Plan Recently lost weight without trying: No Eating poorly because of decreased appetite: No Nutrition Risks: No Nutritional Risk Patient : No : No Poor oral hygiene: No service: No Current occupational status: disabled Meds Allergies Allergy/AdvReac Type Severity Reaction Status Date / Time Penicillins [PENICILLINS] Allergy Severe RASH Verified 12/03/20 09:17 gabapentin [GABAPENTIN] Allergy Mild ABD PAIN Verified 12/03/20 09:17 esomeprazole [Nexium] Allergy Unknown rash Verified 12/03/20 09:17 famotidine [From PEPCID] Allergy Unknown UPSET Verified 12/03/20 09:17 STOMACH lansoprazole [Prevacid] Allergy Unknown rash Verified 12/03/20 09:17 penicillin V Allergy Unknown stomach Verified 12/03/20 09:17 pains tramadol Allergy Hives Verified 12/03/20 09:17 morphine AdvReac Headache Verified 12/03/20 09:17 From NEXIUM Allergy Unknown RASH Uncoded 01/12/20 14:52 Active Medications: Current Medications Generic Name Dose Route Start Last Admin Trade Name Nisha PRN Reason Stop Dose Admin Pharmacy Consult 1 each 12/11/20 20:09 Consult Rx Perform Med Rec MISCELLANE ONCE PRN Consult order Home Medications Medication Instructions Recorded Confirmed Last Taken Type atorvastatin 20 mg tablet 1 tab PO DAILY 04/17/20 12/11/20 11/07/20 History bupropion HCl 150 mg 24 hr tablet, 1 tab PO QAM 04/17/20 12/11/20 11/07/20 History extended release calcium carbonate 600 mg (1,500 1 tab PO BID 04/17/20 12/11/20 11/07/20 History mg)-vitamin D3 400 unit tablet empagliflozin 10 mg tablet 1 tab PO DAILY 04/17/20 12/11/20 11/07/20 History (Jardiance) glimepiride 4 mg tablet 4 mg PO QAM 04/17/20 12/11/20 04/16/20 History levocetirizine 5 mg tablet 1 tab PO BEDTIME 04/17/20 12/11/20 11/07/20 History omeprazole 20 mg capsule,delayed 2 cap PO BID 04/17/20 12/11/20 11/07/20 History release pregabalin 150 mg capsule 1 cap PO DAILY 04/17/20 12/11/20 11/07/20 History sucralfate 1 gram tablet 1 tab PO QIDWMHS 04/17/20 12/11/20 04/15/20 History sumatriptan succinate 100 mg tablet 100 mg PO DAILY MRX1 PRN 04/17/20 12/11/20 04/15/20 History blood sugar diagnostic #10 ea 09/28/20 12/03/20 Unknown History lancets 28 gauge #100 ea 09/28/20 12/03/20 Unknown History albuterol sulfate 90 mcg/actuation 2 puff INHALATION Q4H PRN 10/09/20 12/11/20 11/07/20 History aerosol inhaler buspirone 15 mg tablet 1 tab PO DAILY 11/07/20 12/11/20 11/07/20 History galcanezumab-gnlm 120 mg/mL 120 mg SUBCUT Q4W 11/07/20 12/11/20 10/27/20 History subcutaneous pen injector (Emgality Pen) glimepiride 2 mg tablet 2 mg PO BID@1400,2100 11/07/20 12/11/20 11/07/20 History glipizide 2.5 mg tablet, extended 1 tab PO DAILY 11/07/20 12/11/20 11/07/20 History release 24 hr lisinopril 2.5 mg tablet 2.5 mg PO DAILY 11/07/20 12/11/20 11/07/20 History zileuton 600 mg tablet,extended 2 tab PO BID 11/07/20 12/11/20 11/07/20 History release 12hr mphase aspirin 81 mg tablet,delayed 81 mg PO DAILY 12/11/20 12/11/20 Unknown History release budesonide 180 mcg/actuation 1 puff PO BID 12/11/20 12/11/20 Unknown History breath activated powder inhaler (Pulmicort Flexhaler) kctbvnuzdh-coulghz-xhmgjiwx 50 1 cap PO Q6H PRN 12/11/20 12/11/20 Unknown History mg-325 mg-40 mg capsule cromolyn 4 % eye drops 1 drp OPHTHALMIC (EYE) QID 12/11/20 12/11/20 Unknown History hydralazine 25 mg tablet 1 tab PO DAILY 12/11/20 12/11/20 Unknown History levalbuterol HCl 0.31 mg/3 mL 0.31 mg INHALATION QID PRN 12/11/20 12/11/20 Unknown History solution for nebulization nystatin 100,000 unit/gram topical 1 appl TOPICAL BID 12/11/20 12/11/20 Unknown History powder tiotropium bromide 2.5 2 puff INHALATION DAILY 12/11/20 12/11/20 Unknown History mcg/actuation mist for inhalation (Spiriva Respimat) tizanidine 4 mg tablet 1 tab PO Q8H 12/11/20 12/11/20 Unknown History zolpidem 5 mg tablet 1 tab PO BEDTIME PRN 12/11/20 12/11/20 Unknown History Physical Exam Vital Signs: Vital Signs: Last Vital Signs Temp 98.7 F 12/11/20 20:00 Pulse 72 12/11/20 20:00 Resp 18 12/11/20 20:00 BP 136/71 12/11/20 20:00 Pulse Ox 96 12/11/20 20:00 Body Mass Index 31.8 Const: General: comfortable and no acute distress Orientation/consciousness: patient oriented x3 Neck: Neck: Yes no lymphadenopathy Resp: Auscultation: clear to auscultation bilaterally Cardio: Rhythm: regular rhythm GI: Other: Soft, nondistended, some tenderness the lower abdomen, no rebound or guarding, hernias difficult to palpate Palpation (GI): Soft to palpation, nontender and no guarding Neuro: General: patient oriented x3 Results Results Labs: Short CBC 12/11/20 Range/Units 16:53 WBC 19.3 H (4.8-10.8) X10*3/uL Hgb 12.0 (12.0-16.0) g/dl Hct 38.5 (37-47) % Plt Count 308 (160-400) X10*3/uL BMP 12/11/20 16:53 Sodium 141 Potassium 3.9 Chloride 108 Carbon Dioxide 21 L BUN 14 D Creatinine 0.90 Calcium 9.7 D Liver Function 12/11/20 Range/Units 16:53 Total Bilirubin 0.3 (0.0-1.0) mg/dL AST 12 (5-31) U/L ALT 16 (0-31) U/L Alkaline Phosphatase 129 H D (39-117) U/L Albumin 4.4 (3.5-5.0) g/dL Urine 12/11/20 Range/Units 17:07 Urine Color YELLOW Urine Appearance CLEAR Urine pH 6.0 (5.0-8.0) Ur Specific [place] 1.015 (1.005-1.025) Urine Protein NEG (NEG-TRACE) MG/DL Urine Glucose (UA) 500 H (NEG) MG/DL Abdominal x-ray: report reviewed and image reviewed Assessment and Plan (1) Abdominal pain: Status: Acute She has had recurrent episodes of abdominal pain which were in clear with regard to etiology. She has a history of diverticulitis in the past. He had a CAT scan that was showing mild diverticulitis of the left colon proximal to previous anastomosis. Her main complaints at this time are frequent nausea and lower abdominal pain. Clinically, she is not obstructed. She describes good passage of flatus and bowel movements. She does have leukocytosis but does not have any fever does not appear toxic. She states that she has had poor oral intake for the past 2 days had this may be secondary to dehydration. 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 She does have a benign exam. I am going to start her on IV antibiotics for a presumed diverticulitis although this is uncertain at this time. I will give her some MiraLax to clear her colon so as to allow her to be able to undergo a CT scan. She otherwise is hemodynamically stable. I will consult the hospitalist because of her multiple medical problems. She understands the plan well. Quality Stroke Does the patient have a stroke diagnosis?: No VTE Prior VTE?: No VTE Risk Level:: Medical - moderate - high VTE Device Contraindication: N/A - Device Ordered VTE Drug Contraindication: N/A - Med Ordered Procedures Date of Service Date of Service: 12/11/20
[2020-12-11 23:11] LABS: Lactic Acid 1.3 mmol/L (0.5-2.0)
[2020-12-11] MEDS: Ketorolac Tromethamine 15 MG/ML VIAL IVPUSH (23:18)
[2020-12-11] MEDS: levoFLOXacin/D5W 750 MG/150 ML PIGGYBACK 100 MG IV (23:18)
[2020-12-11] MEDS: 0.9 % Sodium Chloride 1,000 ML 999 ML IVCONT ×2 (23:19)
[2020-12-11 23:20] VITALS: BP 138/67; PULSE 65; RESP 22; O2SAT 97
--- NOTE | 2020-12-11 23:20 | PC.NURSE ---
Medications delayed due to patient being at CAT SCAN for over 40 minutes.
--- NOTE | 2020-12-11 23:21 | PC.NURSE ---
Helped FLAQUITA Marmolejo move pt from 18 H to 15. Got pt changed over to yamel. Put Pt on heart monitor and updated vitals
[2020-12-12] VITALS (12 sets, daily range): BP systolic 96–149; BP diastolic 51–81; PULSE 58–67; RESP 16–63; TEMP 36–36.8; O2SAT 93–99
[2020-12-12] MEDS: metroNIDAZOLE/NS 500 MG/100 ML PIGGYBACK 100 MG IV ×3 (00:36→15:43)
[2020-12-12] MEDS: SUMAtriptan succinate 100 MG TABLET PO ×3 (02:21→15:57)
[2020-12-12] MEDS: Morphine Sulfate 4 MG/ML CARTRIDGE 3 MG IVPUSH ×3 (03:15→11:55)
[2020-12-12 03:41] LABS: MANUAL DIFF FLAG NO
[2020-12-12 03:43] LABS: Basophils Absolute Auto 0.1 X10*3/uL (0.0-0.2); Basophils Percent Auto 0.3 % (0-2); Eosinophils Absolute Auto 0.4 X10*3/uL (0.0-0.4); Eosinophils Percent Auto 2.7 % (0-4); Hematocrit 35.2 % (37-47); Imm Gran Abs Auto 0.08 X10*3/uL (0.00-0.03); Imm Gran Pct Auto 0.5 % (0.0-0.4); Lymphocytes Absolute Auto 3.6 X10*3/uL (1.2-4.9); Lymphocytes Percent Auto 24.2 % (20-40); Mean Corpuscular HGB Conc 31.3 g/dl (31.0-35.0); Mean Corpuscular Hemoglobin 25.5 pg (27.0-33.0); Mean Corpuscular Volume 81.7 fL (80-98); Mean Platelet Volume 11.8 fL (9.4-12.3); Monocytes Percent Auto 6.5 % (2-11); Neutrophils Absolute Auto 9.7 X10*3/uL (2.0-8.3); Neutrophils Percent Auto 65.8 % (45-73); Platelet Count 290 X10*3/uL (160-400); Red Blood Count 4.31 X10*6/uL (4.20-5.50); Red Cell Distribution Width 15.9 % (11.0-16.0); White Blood Count 14.7 X10*3/uL (4.8-10.8)
[2020-12-12 04:15] LABS: Anion Gap 15 (12-20); Blood Urea Nitrogen 14 mg/dL (9-16); Calcium 8.7 mg/dL (8.4-10.2); Carbon Dioxide 21 mmol/L (22-29); Chloride 109 mmol/L (96-108); Creatinine Clr Calc Pharmacy 71.2; Estimated Glomerular Filt Rate > 60; Glucose Random 109 mg/dL (60-115); Potassium 3.9 mmol/L (3.3-5.1); Sodium 141 mmol/L (135-145)
--- NOTE | 2020-12-12 07:39 | PM.IMCN ---
History of Present Illness Data of Consult Service Date: 12/12/20 Requesting physician: Ramses Rabago Primary Care Provider: Unknown Physician HPI Reason for consult: Medical management 60 yo F with DM2, asthma, nephrolithiasis, and 3 prior episodes of diverticulitis, chronic abdominal pain. She presented yet again with abdominal pain, nausea and vomitting, CT was not done due to patient having residual contrast from a recent barium CT. She increased WBC, and is being treated for for diverticulitis. She still has nausea and vomiting and pain. Review of Systems Review of Systems: Gen: no fever Resp: no sob, no cough CV: no chest, no PIERRE, no leg edema GI: No nausea, vomitting, and abdominal pain Neuro: No confusion [facility] Medical History Abdominal pain Asthma Chronic back pain Depression Diabetes 1.5, managed as type 2 Diverticulitis Diverticulitis History of diverticulitis HTN (hypertension) Migraines SIRS (systemic inflammatory response syndrome) Surgical History History of cholecystectomy History of hysterectomy History of partial colectomy Social History Household Members: Spouse Housing: Apartment Do you presently have visiting nurse or other home services: No Alcohol intake: never Patient Tobacco Use Status: Never used Tobacco Second Hand Smoke Exposure: Yes Use of substances other than those prescribed or required for medical reasons: No Have you been hit, kicked, punched, or otherwise hurt by someone within the past year? If so, by whom?: No Do you feel safe in your current relationship?: Yes Is there a partner from a previous relationship who is making you feel unsafe now?: No Are you made to feel afraid or neglected: No Advance Directives: Yes Advance Directives on File: Yes Advance Directives Date on File: 10/01/20 Do you have thoughts of harming others: None Do you have a plan to hurt others: No Plan Recently lost weight without trying: No Eating poorly because of decreased appetite: No Nutrition Risks: No Nutritional Risk Patient : No : No Poor oral hygiene: No service: No Current occupational status: disabled Meds Allergies Allergy/AdvReac Type Severity Reaction Status Date / Time Penicillins [PENICILLINS] Allergy Severe RASH Verified 12/03/20 09:17 gabapentin [GABAPENTIN] Allergy Mild ABD PAIN Verified 12/03/20 09:17 esomeprazole [Nexium] Allergy Unknown rash Verified 12/03/20 09:17 famotidine [From PEPCID] Allergy Unknown UPSET Verified 12/03/20 09:17 STOMACH lansoprazole [Prevacid] Allergy Unknown rash Verified 12/03/20 09:17 penicillin V Allergy Unknown stomach Verified 12/03/20 09:17 pains tramadol Allergy Hives Verified 12/03/20 09:17 morphine AdvReac Headache Verified 12/03/20 09:17 From NEXIUM Allergy Unknown RASH Uncoded 01/12/20 14:52 Active Medications: Current Medications Generic Name Dose Route Start Last Admin Trade Name Freq PRN Reason Stop Dose Admin Albuterol Sulfate 2 puff 12/11/20 23:25 Albuterol Sulfate 90 Mcg 8 Gm Inhaler INHALE Q4H PRN wheezing Albuterol Sulfate 1.25 mg 12/12/20 00:10 Albuterol Sulfate (0.042%) 1.25 Mg/3 Ml Vial.Neb INHALE QID PRN Shortness Of Breath Aspirin 81 mg 12/12/20 09:00 Aspirin Enteric Coated 81 Mg Tablet.Dr PO DAILY [facility] Atorvastatin Calcium 20 mg 12/12/20 09:00 Atorvastatin Calcium 20 Mg Tablet PO DAILY [facility] Budesonide 1 puff 12/12/20 09:00 Budesonide 180 Mcg Aer.Pow.Ba INHALE BID [facility] Bupropion HCl 150 mg 12/11/20 23:30 12/12/20 01:49 Bupropion Hcl Xl 150 Mg Tab.Er.24h PO Not Given DAILY [facility] Buspirone HCl 15 mg 12/12/20 09:00 Buspirone Hcl 5 Mg Tablet PO DAILY [facility] Docusate Sodium 100 mg 12/12/20 09:00 Docusate Sodium 100 Mg Capsule PO BID [facility] Heparin Sodium (Porcine) 5,000 unit 12/11/20 23:30 18 01:49 Heparin Sodium,Porcine 5,000 Unit/Ml Vial SUBCUT Not Given Q12H [facility] Hydralazine HCl 25 mg 12/12/20 09:00 Hydralazine Hcl 25 Mg Tablet PO DAILY [facility] Protocol Sodium Chloride 1,000 mls @ 100 mls/hr 12/11/20 23:30 12/12/20 01:49 Ns IVCONT Not Given .Q10H [facility] Levofloxacin 500 mg in 100 mls @ 100 mls/hr 12/11/20 23:30 12/12/20 01:50 Levaquin IV Not Given Q24H [facility] Metronidazole 500 mg in 100 mls @ 100 mls/hr 12/11/20 23:30 12/12/20 01:51 Flagyl IV Infused Q8H [facility] Infusion Lisinopril 2.5 mg 12/12/20 09:00 Lisinopril 2.5 Mg Tablet PO DAILY [facility] Protocol Morphine Sulfate 3 mg 12/11/20 23:20 12/12/20 03:15 Morphine Sulfate 4 Mg/Ml Cartridge IVPUSH 3 mg Q3H PRN Administration Pain, Severe (Pain Scale 7-10) Protocol Non-Formulary Medication 1 drop 12/12/20 09:00 Cromolyn EYE-BOTH QID [facility] Omeprazole 40 mg 12/12/20 09:00 Omeprazole 40 Mg Capsule.Dr PO BID [facility] Ondansetron HCl 4 mg 12/11/20 23:20 Ondansetron Hcl 4 Mg/2 Ml Vial IVPUSH Q8H PRN Nausea and Vomiting Pharmacy Consult 1 each 12/11/20 20:09 Consult Rx Perform Med Rec MISCELLANE ONCE PRN Consult order Pregabalin 150 mg 12/12/20 09:00 Pregabalin 150 Mg Capsule PO DAILY [facility] Sodium Chloride 3 ml 12/12/20 00:00 12/12/20 00:37 0.9 % Sodium Chloride Flush 3 Ml Syringe IVFLUSH Not Given QSHIFT [facility] Sumatriptan Succinate 100 mg 12/11/20 23:25 12/12/20 02:21 Sumatriptan Succinate 100 Mg Tablet PO 100 mg DAILY MRX1 PRN Administration Migraine Headache Tiotropium [place] 1 puff 12/12/20 08:00 Tiotropium [place] 18 Mcg Cap.W.Dev INHALE RDAILY [facility] Tizanidine HCl 4 mg 12/11/20 23:30 12/12/20 01:50 Tizanidine Hcl 4 Mg Tablet PO Not Given Q8H [facility] Zolpidem Tartrate 5 mg 12/11/20 23:25 Zolpidem Tartrate 5 Mg Tablet PO BEDTIME PRN Insomnia Home Medications Medication Instructions Recorded Confirmed Last Taken Type atorvastatin 20 mg tablet 1 tab PO DAILY 04/17/20 12/11/20 11/07/20 History bupropion HCl 150 mg 24 hr tablet, 1 tab PO QAM 04/17/20 12/11/20 11/07/20 History extended release calcium carbonate 600 mg (1,500 1 tab PO BID 04/17/20 12/11/20 11/07/20 History mg)-vitamin D3 400 unit tablet empagliflozin 10 mg tablet 1 tab PO DAILY 04/17/20 12/11/20 11/07/20 History (Jardiance) glimepiride 4 mg tablet 4 mg PO QAM 04/17/20 12/11/20 04/16/20 History levocetirizine 5 mg tablet 1 tab PO BEDTIME 04/17/20 12/11/20 11/07/20 History omeprazole 20 mg capsule,delayed 2 cap PO BID 04/17/20 12/11/20 11/07/20 History release pregabalin 150 mg capsule 1 cap PO DAILY 04/17/20 12/11/20 11/07/20 History sucralfate 1 gram tablet 1 tab PO QIDWMHS 04/17/20 12/11/20 04/15/20 History sumatriptan succinate 100 mg tablet 100 mg PO DAILY MRX1 PRN 04/17/20 12/11/20 04/15/20 History blood sugar diagnostic #10 ea 09/28/20 12/03/20 Unknown History lancets 28 gauge #100 ea 09/28/20 12/03/20 Unknown History albuterol sulfate 90 mcg/actuation 2 puff INHALATION Q4H PRN 10/09/20 12/11/20 11/07/20 History aerosol inhaler buspirone 15 mg tablet 1 tab PO DAILY 11/07/20 12/11/20 11/07/20 History galcanezumab-gnlm 120 mg/mL 120 mg SUBCUT Q4W 11/07/20 12/11/20 10/27/20 History subcutaneous pen injector (Emgality Pen) glimepiride 2 mg tablet 2 mg PO BID@1400,2100 11/07/20 12/11/20 11/07/20 History glipizide 2.5 mg tablet, extended 1 tab PO DAILY 11/07/20 12/11/20 11/07/20 History release 24 hr lisinopril 2.5 mg tablet 2.5 mg PO DAILY 11/07/20 12/11/20 11/07/20 History zileuton 600 mg tablet,extended 2 tab PO BID 11/07/20 12/11/20 11/07/20 History release 12hr mphase aspirin 81 mg tablet,delayed 81 mg PO DAILY 12/11/20 12/11/20 Unknown History release budesonide 180 mcg/actuation 1 puff PO BID 12/11/20 12/11/20 Unknown History breath activated powder inhaler (Pulmicort Flexhaler) udkzpxnxhh-zyqqzqf-[id number] 50 1 cap PO Q6H PRN 12/11/20 12/11/20 Unknown History mg-325 mg-40 mg capsule cromolyn 4 % eye drops 1 drp OPHTHALMIC (EYE) QID 12/11/20 12/11/20 Unknown History hydralazine 25 mg tablet 1 tab PO DAILY 12/11/20 12/11/20 Unknown History levalbuterol HCl 0.31 mg/3 mL 0.31 mg INHALATION QID PRN 12/11/20 12/11/20 Unknown History solution for nebulization nystatin 100,000 unit/gram topical 1 appl TOPICAL BID 12/11/20 12/11/20 Unknown History powder tiotropium bromide 2.5 2 puff INHALATION DAILY 12/11/20 12/11/20 Unknown History mcg/actuation mist for inhalation (Spiriva Respimat) tizanidine 4 mg tablet 1 tab PO Q8H 12/11/20 12/11/20 Unknown History zolpidem 5 mg tablet 1 tab PO BEDTIME PRN 12/11/20 12/11/20 Unknown History Physical Exam Vital Signs and Narrative: Vital Signs: Last Vital Signs Temp 97 F 12/12/20 04:00 Pulse 58 12/12/20 04:00 Resp 16 12/12/20 04:00 BP 147/68 H 12/12/20 04:00 Pulse Ox 95 12/12/20 04:00 Body Mass Index 31.8 Results Labs CBC and Chem 7: 12/12/20 03:25 12/12/20 03:25 Labs: Laboratory Results - last 24 hr 12/11/20 12/11/20 12/11/20 16:53 16:53 17:07 MCV 82.3 MCH 25.6 L MCHC 31.2 RDW 15.9 Plt Count 308 MPV 11.6 Immature Gran % (Auto) 0.8 H Neut % (Auto) 73.8 H Lymph % (Auto) 17.[address] [place] % (Auto) 4.8 Eos % (Auto) 2.8 Baso % (Auto) 0.3 Lymph # (Auto) 3.4 [place] # (Auto) 0.9 Eos # (Auto) 0.6 H Baso # (Auto) 0.1 Abs Immat Gran (auto) 0.15 H Absolute Neuts (auto) 14.3 H Absolute Nucleated RBC 0.000 Nucleated RBC % (auto) 0.0 Anion Gap 16 Estim Creat Clear Calc 68.1 Estimated GFR > 60 Random Glucose 82 Lactic Acid Calcium 9.7 D Magnesium 2.1 Total Bilirubin 0.3 AST 12 ALT 16 Alkaline Phosphatase 129 H D Total Protein 7.9 Albumin 4.4 Lipase 12 Urine Color YELLOW Urine Appearance CLEAR Urine pH 6.0 Ur Specific [place] 1.015 Urine Protein NEG Urine Glucose (UA) 500 H Urine Ketones NEG Urine Blood NEG Urine Nitrite NEG Ur Leukocyte Esterase NEG COVID-19 ([facility]) COVID-19 Clin [facility] 12/11/20 12/11/20 12/12/20 22:44 22:45 03:25 MCV 81.7 MCH 25.5 L MCHC 31.3 RDW 15.9 Plt Count 290 MPV 11.8 Immature Gran % (Auto) 0.5 H Neut % (Auto) 65.8 Lymph % (Auto) 24.2 [place] % (Auto) 6.5 Eos % (Auto) 2.7 Baso % (Auto) 0.3 Lymph # (Auto) 3.6 [place] # (Auto) 1.0 Eos # (Auto) 0.4 Baso # (Auto) 0.1 Abs Immat Gran (auto) 0.08 H Absolute Neuts (auto) 9.7 H Absolute Nucleated RBC 0.000 Nucleated RBC % (auto) 0.0 Anion Gap Estim Creat Clear Calc Estimated GFR Random Glucose Lactic Acid 1.3 Calcium Magnesium Total Bilirubin AST ALT Alkaline Phosphatase Total Protein Albumin Lipase Urine Color Urine Appearance Urine pH Ur Specific [place] Urine Protein Urine Glucose (UA) Urine Ketones Urine Blood Urine Nitrite Ur Leukocyte Esterase COVID-19 ([facility]) Negative COVID-19 Clin Com See Note 12/12/20 03:25 MCV MCH MCHC RDW Plt Count MPV Immature Gran % (Auto) Neut % (Auto) Lymph % (Auto) [place] % (Auto) Eos % (Auto) Baso % (Auto) Lymph # (Auto) [place] # (Auto) Eos # (Auto) Baso # (Auto) Abs Immat Gran (auto) Absolute Neuts (auto) Absolute Nucleated RBC Nucleated RBC % (auto) Anion Gap 15 Estim Creat Clear Calc 71.2 Estimated GFR > 60 Random Glucose 109 Lactic Acid Calcium 8.7 D Magnesium Total Bilirubin AST ALT Alkaline Phosphatase Total Protein Albumin Lipase Urine Color Urine Appearance Urine pH Ur Specific [place] Urine Protein Urine Glucose (UA) Urine Ketones Urine Blood Urine Nitrite Ur Leukocyte Esterase COVID-19 ([facility]) COVID-19 Clin Com Imaging Radiologist's Impressions: Impressions Abdomen/Pelvis CT 12/11/20 21:48 IMPRESSION: CT scan not performed because of dense contrast in the colon. Assessment and Plan (1) Diverticulitis: Status: Acute (2) Diabetes 1.5, managed as type 2: Status: Acute 60yo F with DM2 and recurrent diverticulitis and prior sigmoid resection presenting with abdominal pain, and being treated for recurrent diverticulitis and concern for possible bowel obstruction--but clinically doesn't seem obstructed # acute diverticulitis - Continue IV levofloxacin/metronidazole surgery following, continue liquid diet and follow clinically, monitor WBC # chronic pain - continue pregabalin, tizanidine # migraines - prn sumatriptan, Fioricet # asthma, not in acute exacerbation - continue ICS/LABA, prn albuterol # HTN--continue Lisinopril and Hydralazine # DM2- correction-dose lispro, and monitor POCs # VTE Heparin
[2020-12-12] MEDS: Pregabalin 150 MG CAPSULE PO (08:34)
[2020-12-12] MEDS: busPIRone HCl 5 MG TABLET 15 MG PO (08:34)
[2020-12-12] MEDS: Aspirin Enteric Coated 81 MG TABLET.DR PO (08:34)
[2020-12-12] MEDS: lisinopriL 2.5 MG TABLET PO (08:34)
[2020-12-12] MEDS: Atorvastatin Calcium 20 MG TABLET PO (08:35)
[2020-12-12] MEDS: TiZANidine HCL 4 MG TABLET PO ×2 (08:35→15:51)
[2020-12-12] MEDS: buPROPion HCl XL 150 MG TAB.ER.24H PO (08:35)
[2020-12-12] MEDS: 0.9 % Sodium Chloride 1,000 ML 100 ML IVCONT ×2 (08:36→19:14)
[2020-12-12] MEDS: Docusate Sodium 100 MG CAPSULE PO ×2 (08:36→21:17)
[2020-12-12] MEDS: hydrALAZINE HCl 25 MG TABLET PO (08:36)
[2020-12-12] MEDS: Omeprazole 40 MG CAPSULE.DR PO ×2 (08:38→21:17)
[2020-12-12] MEDS: ondansetron HCL 4 MG/2 ML VIAL IVPUSH (08:57)
[2020-12-12] MEDS: polyethylene glycoL 3350 17 GM POWD.PACK PO (09:00)
--- NOTE | 2020-12-12 09:11 | MHC.CLN ---
NUTRITION CURRENT DIET=CLEAR LIQUIDS. WHEN DIET ADVANCES, RECOMMEND DIABETIC 1800 KCAL (30.3 KCAL/KG CMW). REVIEW OF WEIGHTS SHOWS WEIGHT LOSS -3.3% X 3 MONTHS, NOT SIGNIFICANT.
--- NOTE | 2020-12-12 09:45 | P.PNGS_ITS ---
Subjective Subjective Date of Service: 12/12/20 Interval history: Feels the same although pain much better controlled No vomiting Passing significant flatus but denies BM Physical Exam Vital Signs: Vital Signs: Last Vital Signs Temp 97.2 F 12/12/20 08:00 Pulse 61 12/12/20 08:00 Resp 18 12/12/20 08:00 BP 127/71 12/12/20 08:00 Pulse Ox 96 12/12/20 08:00 Body Mass Index 31.8 Chemistry 12/11/20 12/12/20 16:53 03:25 Sodium 141 141 Potassium 3.9 3.9 Carbon Dioxide 21 L 21 L BUN 14 D 14 Creatinine 0.90 0.86 Calcium 9.7 D 8.7 D Hematology 12/11/20 12/12/20 16:53 03:25 WBC 19.3 H 14.7 H Hgb 12.0 11.0 L Plt Count 308 290 Urinalysis 12/11/20 17:07 Urine Color YELLOW Urine Appearance CLEAR Urine pH 6.0 Ur Specific Gravit y 1.015 Urine Protein NEG Urine Glucose (UA) 500 H Urine Ketones NEG Urine Blood NEG Urine Nitrite NEG Ur Leukocyte Tere ase NEG Const: General: comfortable and no acute distress Orientation/conscious ness: patient oriented x3 Neck: Neck: Yes no lymphadenopathy Resp: Auscultation: clear to auscultation bilaterally Cardio: Rhythm: regular rhythm GI: Other: Some tenderness on lower abdomen, no rebound or guarding Palpation (GI): Soft to palpation and no guarding Neuro: General: patient oriented x3 Procedures Date of Service Date of Service: 12/12/20 Progress Note: A&P Assessment and plan (1) Abdominal pain: Status: Acute Assessment and Plan: Possibly diverticulitis? Awaiting BMs so that we can proceed with CT scan - she has a lot of residual contrast from barium swallow last week Exam benign WBC lower Ambulate IV fluids Keep on clear liquids for now Fall Risk Details Current Medications: Current Medications Generic Name Dose Route Start Last Admin Trade Name Freq PRN Reason Stop Dose Admin Albuterol Sulfate 2 puff 12/11/20 23:25 Albuterol Sulfate 90 Mcg 8 Gm Inhaler INHALE Q4H PRN wheezing Albuterol Sulfate 1.25 mg 12/12/20 00:10 Albuterol Sulfate (0.042%) 1.25 Mg/3 Ml Vial.Neb INHALE QID PRN Shortness Of Breath Aspirin 81 mg 12/12/20 09:00 12/12/20 08:34 Aspirin Enteric Coated 81 Mg Tablet. PO 81 mg DAILY [facility] Administration Atorvastatin Calcium 20 mg 12/12/20 09:00 12/12/20 08:35 Atorvastatin Calcium 20 Mg Tablet PO 20 mg DAILY [facility] Administration Budesonide 1 puff 12/12/20 09:00 Budesonide 180 Mcg Aer.Pow.Ba INHALE BID [facility] Bupropion HCl 150 mg 12/11/20 23:30 12/12/20 08:35 Bupropion Hcl Xl 150 Mg Tab.Er.24h PO 150 mg DAILY [facility] Administration Buspirone HCl 15 mg 12/12/20 09:00 12/12/20 08:34 Buspirone Hcl 5 Mg Tablet PO 15 mg DAILY [facility] Administration Docusate Sodium 100 mg 12/12/20 09:00 12/12/20 08:36 Docusate Sodium 100 Mg Capsule PO 100 mg BID [facility] Administration Heparin Sodium (Porcine) 5,000 unit 12/11/20 23:30 12/12/20 01:49 Heparin Sodium,Porcine 5,000 Unit/Ml Vial SUBCUT Not Given Q12H [facility] Hydralazine HCl 25 mg 12/12/20 09:00 12/12/20 08:36 Hydralazine Hcl 25 Mg Tablet PO 25 mg DAILY [facility] Administration Protocol Sodium Chloride 1,000 mls @ 100 mls/hr 12/11/20 23:30 12/12/20 08:36 Ns IVCONT 100 mls/hr .Q10H [facility] Administration Levofloxacin 500 mg in 100 mls @ 100 mls/hr 12/11/20 23:30 12/12/20 01:50 Levaquin IV Not Given Q24H [facility] Metronidazole 500 mg in 100 mls @ 100 mls/hr 12/11/20 23:30 12/12/20 08:37 Flagyl IV 100 mls/hr Q8H [facility] Administration Lisinopril 2.5 mg 12/12/20 09:00 12/12/20 08:34 Lisinopril 2.5 Mg Tablet PO 2.5 mg DAILY [facility] Administration Protocol Morphine Sulfate 3 mg 12/11/20 23:20 12/12/20 08:57 Morphine Sulfate 4 Mg/Ml Cartridge IVPUSH 3 mg Q3H PRN Administration Pain, Severe (Pain Scale 7-10) Protocol Non-Formulary Medication 1 drop 12/12/20 09:00 Cromolyn EYE-BOTH QID [facility] Omeprazole 40 mg 12/12/20 09:00 12/12/20 08:38 Omeprazole 40 Mg Capsule.Dr PO 40 mg BID [facility] Administration Ondansetron HCl 4 mg 12/11/20 23:20 12/12/20 08:57 Ondansetron Hcl 4 Mg/2 Ml Vial IVPUSH 4 mg Q8H PRN Administration Nausea and Vomiting Pharmacy Consult 1 each 12/11/20 20:09 Consult Rx Perform Med Rec MISCELLANE ONCE PRN Consult order Pregabalin 150 mg 12/12/20 09:00 12/12/20 08:34 Pregabalin 150 Mg Capsule PO 150 mg DAILY [facility] Administration Sodium Chloride 3 ml 12/12/20 00:00 12/12/20 08:38 0.9 % Sodium Chloride Flush 3 Ml Syringe IVFLUSH Not Given QSHIFT [facility] Sumatriptan Succinate 100 mg 12/11/20 23:25 12/12/20 08:57 Sumatriptan Succinate 100 Mg Tablet PO 100 mg DAILY MRX1 PRN Administration Migraine Headache Tiotropium [place] 1 puff 12/12/20 08:00 Tiotropium [place] 18 Mcg Cap.W.Dev INHALE RDAILY [facility] Tizanidine HCl 4 mg 12/11/20 23:30 12/12/20 08:35 Tizanidine Hcl 4 Mg Tablet PO 4 mg Q8H [facility] Administration Zolpidem Tartrate 5 mg 12/11/20 23:25 Zolpidem Tartrate 5 Mg Tablet PO BEDTIME PRN Insomnia Time Spent With Patient Time: Total time spent is greater than 50% in coordination of care (as documented) at patient's floor/unit and/or counseling patient: Time with patient: 15 - 24 minutes Quality Stroke Does the patient have a stroke diagnosis?: No VTE Prior VTE?: No VTE Risk Level:: Medical - moderate - high VTE Device Contraindication: N/A - Device Ordered VTE Drug Contraindication: N/A - Med Ordered
--- NOTE | 2020-12-12 10:20 | MHC.CM.PN ---
PATIENT LIVES WITH HER SPOUSE/HCP (ON FILE AND VERIFIED) NO DME FOR AMBULATION ASSIST. NO VNA OR ELDER SERVICES. SHE IS HOPING TO RETURN HOME WITHOUT ANY SURGICAL INTERVENTION. CASE MANAGEMENT FOLLOWING FOR DC PLANS AND NEEDS. IMM 12/12 IN CHART.
[2020-12-12] MEDS: Heparin Sodium,Porcine 5,000 UNIT/ML VIAL 5000 UNIT SUBCUT ×2 (11:57→23:50)
[2020-12-12] MEDS: HYDROmorphone HCl 0.5 MG/0.5 ML SYRINGE 0.25 MG IVPUSH ×3 (13:19→21:27)
[2020-12-12 13:43] LABS: Glucose, Whole Blood 161 mg/dL (60-115)
--- NOTE | 2020-12-12 14:25 | MHC.CM.PN ---
PCP IS LG MOSS NP, OF [facility] @ [address] [place] [address] . UPDATE MADE IN [employer]
--- NOTE | 2020-12-12 16:17 | PM.EVENT ---
Event Note Date of Service: 12/12/20 Event Note: Seen on afternoon rounds Describes some nausea Also says the pain now mostly on the upper abdomen towards the chest Abdomen remained soft No guarding or rebound No fever She says by experience, Dilaudid works better than morphine so I will switch her pain meds Still had no BM - receive her dose of MiraLax this morning Continues to pass good flatus Otherwise appears benign Will do CT scan after she has BMs so as to avoid artifacts with residual barium contrast from barium swallow
[2020-12-12] MEDS: Zolpidem Tartrate 5 MG TABLET PO (21:16)
[2020-12-12] MEDS: levoFLOXacin/D5W 500 MG/100 ML PIGGYBACK 100 MG IV (23:50)
[2020-12-13] VITALS (11 sets, daily range): BP systolic 96–137; BP diastolic 51–70; PULSE 58–71; RESP 15–20; TEMP 36.4–36.5; O2SAT 94–97
[2020-12-13] MEDS: TiZANidine HCL 4 MG TABLET PO ×4 (00:19→23:55)
[2020-12-13] MEDS: metroNIDAZOLE/NS 500 MG/100 ML PIGGYBACK 100 MG IV ×4 (01:24→23:01)
[2020-12-13] MEDS: HYDROmorphone HCl 0.5 MG/0.5 ML SYRINGE 0.25 MG IVPUSH ×6 (01:31→20:42)
[2020-12-13] MEDS: ondansetron HCL 4 MG/2 ML VIAL IVPUSH ×2 (01:43→10:40)
[2020-12-13] MEDS: 0.9 % Sodium Chloride 1,000 ML 100 ML IVCONT ×2 (05:54→16:56)
--- NOTE | 2020-12-13 08:38 | P.PNGS_ITS ---
Subjective Subjective Date of Service: 12/13/20 Interval history: Says she feels better Less abdominal pain Still with some nausea Passing good amount of flatus but denies BMs Physical Exam Vital Signs: Vital Signs: Last Vital Signs Temp 97.6 F 12/13/20 07:57 Pulse 67 12/13/20 07:57 Resp 16 12/13/20 07:57 BP 129/59 L 12/13/20 07:57 Pulse Ox 95 12/13/20 07:57 Body Mass Index 31.8 Chemistry 12/11/20 12/12/20 16:53 03:25 Sodium 141 141 Potassium 3.9 3.9 Carbon Dioxide 21 L 21 L BUN 14 D 14 Creatinine 0.90 0.86 Calcium 9.7 D 8.7 D Hematology 12/11/20 12/12/20 16:53 03:25 WBC 19.3 H 14.7 H Hgb 12.0 11.0 L Plt Count 308 290 Urinalysis 12/11/20 17:07 Urine Color YELLOW Urine Appearance CLEAR Urine pH 6.0 Ur Specific Gravit y 1.015 Urine Protein NEG Urine Glucose (UA) 500 H Urine Ketones NEG Urine Blood NEG Urine Nitrite NEG Ur Leukocyte Tere ase NEG Const: Other: Looks anxious General: no acute distress Resp: Effort & Inspection: normal respiratory effort Cardio: Rate: regular rate GI: Other: Soft, no guarding rebound, sometenderness, diffuse, not localized Procedures Date of Service Date of Service: 12/13/20 Progress Note: A&P Assessment and plan (1) Abdominal pain: Status: Acute Assessment and Plan: Etiology uncertain Has history of diverticulitis CT not done for this admission yet in view of presence of dense residual contrast from barium swallow Given MiraLax yesterday, repeat today Abdomen benign White count trending down Not toxic looking otherwise Continue clear liquids, IV antibiotics Plan to repeat CT scan when she has BMs Fall Risk Details Current Medications: Current Medications Generic Name Dose Route Start Last Admin Trade Name Freq PRN Reason Stop Dose Admin Acetaminophen/Butalbital/Caffeine 1 tab 12/13/20 08:08 Butalb/Acetamin/Caff 50/325/40 Tablet PO Q4H PRN Headache Albuterol Sulfate 2 puff 12/11/20 23:25 Albuterol Sulfate 90 Mcg 8 Gm Inhaler INHALE Q4H PRN wheezing Albuterol Sulfate 1.25 mg 12/12/20 00:10 Albuterol Sulfate (0.042%) 1.25 Mg/3 Ml Vial.Neb INHALE QID PRN Shortness Of Breath Aspirin 81 mg 12/12/20 09:00 12/12/20 08:34 Aspirin Enteric Coated 81 Mg Tablet.Dr PO 81 mg DAILY [facility] Administration Atorvastatin Calcium 20 mg 12/12/20 09:00 12/12/20 08:35 Atorvastatin Calcium 20 Mg Tablet PO 20 mg DAILY [facility] Administration Budesonide 1 puff 12/12/20 09:00 12/12/20 15:53 Budesonide 180 Mcg Aer.Pow.Ba INHALE Not Given BID [facility] Bupropion HCl 150 mg 12/11/20 23:30 12/12/20 08:35 Bupropion Hcl Xl 150 Mg Tab.Er.24h PO 150 mg DAILY [facility] Administration Buspirone HCl 15 mg 12/12/20 09:00 12/12/20 08:34 Buspirone Hcl 5 Mg Tablet PO 15 mg DAILY [facility] Administration Docusate Sodium 100 mg 12/12/20 09:00 12/12/20 21:17 Docusate Sodium 100 Mg Capsule PO 100 mg BID [facility] Administration Heparin Sodium (Porcine) 5,000 unit 12/11/20 23:30 12/12/20 23:50 Heparin Sodium,Porcine 5,000 Unit/Ml Vial SUBCUT 5,000 unit Q12H [facility] Administration Hydralazine HCl 25 mg 12/12/20 09:00 12/12/20 08:36 Hydralazine Hcl 25 Mg Tablet PO 25 mg DAILY [facility] Administration Protocol Hydromorphone HCl 0.25 mg 12/12/20 13:00 12/13/20 05:50 Hydromorphone Hcl 0.5 Mg/0.5 Ml Syringe IVPUSH 0.25 mg Q3H PRN Administration Pain, Severe (Pain Scale 7-10) Protocol Sodium Chloride 1,000 mls @ 100 mls/hr 12/11/20 23:30 12/13/20 05:54 Ns IVCONT 100 mls/hr .Q10H [facility] Administration Levofloxacin 500 mg in 100 mls @ 100 mls/hr 12/11/20 23:30 12/13/20 01:28 Levaquin IV Infused Q24H [facility] Infusion Metronidazole 500 mg in 100 mls @ 100 mls/hr 12/11/20 23:30 12/13/20 02:31 Flagyl IV Infused Q8H [facility] Infusion Promethazine HCl 12.5 mg/ 50.5 mls @ 202 mls/hr 12/12/20 12:50 12/12/20 14:18 Sodium Chloride IV Infused Q6H PRN Infusion Nausea Lisinopril 2.5 mg 12/12/20 09:00 12/12/20 08:34 Lisinopril 2.5 Mg Tablet PO 2.5 mg DAILY [facility] Administration Protocol Patient Own Med ( 1 each 12/12/20 17:00 12/12/20 21:17 [place] 4% Eye EYE-BOTH 1 each Drops) QID [facility] Administration Omeprazole 40 mg 12/12/20 09:00 12/12/20 21:17 Omeprazole 40 Mg Capsule.Dr PO 40 mg BID [facility] Administration Ondansetron HCl 4 mg 12/11/20 23:20 12/13/20 01:43 Ondansetron Hcl 4 Mg/2 Ml Vial IVPUSH 4 mg Q8H PRN Administration Nausea and Vomiting Pharmacy Consult 1 each 12/11/20 20:09 Consult Rx Perform Med Rec MISCELLANE ONCE PRN Consult order Pregabalin 150 mg 12/12/20 09:00 12/12/20 08:34 Pregabalin 150 Mg Capsule PO 150 mg DAILY [facility] Administration Sodium Chloride 3 ml 12/12/20 00:00 12/13/20 01:24 0.9 % Sodium Chloride Flush 3 Ml Syringe IVFLUSH Not Given QSHIFT [facility] Sumatriptan Succinate 100 mg 12/11/20 23:25 12/12/20 15:57 Sumatriptan Succinate 100 Mg Tablet PO 100 mg DAILY MRX1 PRN Administration Migraine Headache Tiotropium [place] 1 puff 12/12/20 08:00 12/12/20 15:53 Tiotropium [place] 18 Mcg Cap.W.Dev INHALE Not Given RDAILY [facility] Tizanidine HCl 4 mg 12/11/20 23:30 12/13/20 00:19 Tizanidine Hcl 4 Mg Tablet PO 4 mg Q8H [facility] Administration Zolpidem Tartrate 5 mg 12/11/20 23:25 12/12/20 21:16 Zolpidem Tartrate 5 Mg Tablet PO 5 mg BEDTIME PRN Administration Insomnia Time Spent With Patient Time: Total time spent is greater than 50% in coordination of care (as documented) at patient's floor/unit and/or counseling patient: Time with patient: 15 - 24 minutes Quality Stroke Does the patient have a stroke diagnosis?: No VTE Prior VTE?: No VTE Risk Level:: Medical - moderate - high VTE Device Contraindication: N/A - Device Ordered VTE Drug Contraindication: N/A - Med Ordered
[2020-12-13] MEDS: polyethylene glycoL 3350 17 GM POWD.PACK PO (09:14)
[2020-12-13] MEDS: Atorvastatin Calcium 20 MG TABLET PO (09:15)
[2020-12-13] MEDS: buPROPion HCl XL 150 MG TAB.ER.24H PO (09:15)
[2020-12-13] MEDS: Docusate Sodium 100 MG CAPSULE PO ×2 (09:16→20:43)
[2020-12-13] MEDS: lisinopriL 2.5 MG TABLET PO (09:16)
[2020-12-13] MEDS: hydrALAZINE HCl 25 MG TABLET PO (09:16)
[2020-12-13] MEDS: Omeprazole 40 MG CAPSULE.DR PO ×2 (09:17→20:44)
[2020-12-13] MEDS: busPIRone HCl 5 MG TABLET 15 MG PO (09:17)
[2020-12-13] MEDS: Aspirin Enteric Coated 81 MG TABLET.DR PO (09:17)
[2020-12-13] MEDS: Pregabalin 150 MG CAPSULE PO (09:34)
[2020-12-13] MEDS: Butalb/Acetamin/Caff 50/325/40 TABLET 1 TAB PO ×2 (10:38→16:01)
[2020-12-13] MEDS: Heparin Sodium,Porcine 5,000 UNIT/ML VIAL 5000 UNIT SUBCUT ×2 (10:40→23:57)
[2020-12-13] MEDS: Budesonide 180 MCG AER.POW.BA 1 PUFF INHALE ×2 (12:47→21:47)
--- NOTE | 2020-12-13 13:37 | HO.PM.IMPN ---
Subjective Subjective Date of Service: 12/13/20 Interval History: COMPLAINING OF ABDOMINAL PAIN, mild nausea, PASSING FLATUS, COMPLAINING OF VAGINAL ITCH . Review of Systems General no headache, no dizziness no fever chills. CVS no chest pain, no palpitation. Respiratory no cough, no sob Gastrointestinal as above, no bowel movement Physical Exam Vital Signs: Vital Signs: Last Vital Signs Temp 97.7 F 12/13/20 12:00 Pulse 59 12/13/20 12:00 Resp 16 12/13/20 12:00 BP 101/51 L 12/13/20 12:00 Pulse Ox 97 12/13/20 12:00 Body Mass Index 31.8 General no acute distress. Neck supple no JVD. CVS regular rate rhythm, Respiratory lungs clear to auscultation, no respiratory distress Gastrointestinal abdomen soft,mild tenderness lower abd, bowel sounds audible, no guarding , no rigidity. Extremities no edema. Neuro nonfocal Skin no rash Objective Data Current Medications Generic Name Dose Route Start Last Admin Trade Name Freq PRN Reason Stop Dose Admin Acetaminophen/Butalbital/Caffeine 1 tab 12/13/20 08:08 12/13/20 10:38 Butalb/Acetamin/Caff 50/325/40 Tablet PO 1 tab Q4H PRN Administration Headache Albuterol Sulfate 2 puff 12/11/20 23:25 Albuterol Sulfate 90 Mcg 8 Gm Inhaler INHALE Q4H PRN wheezing Albuterol Sulfate 1.25 mg 12/12/20 00:10 Albuterol Sulfate (0.042%) 1.25 Mg/3 Ml Vial.Neb INHALE QID PRN Shortness Of Breath Aspirin 81 mg 12/12/20 09:00 12/13/20 09:17 Aspirin Enteric Coated 81 Mg Tablet. PO 81 mg DAILY [facility] Administration Atorvastatin Calcium 20 mg 12/12/20 09:00 12/13/20 09:15 Atorvastatin Calcium 20 Mg Tablet PO 20 mg DAILY [facility] Administration Budesonide 1 puff 12/12/20 09:00 12/13/20 12:47 Budesonide 180 Mcg Aer.Pow.Ba INHALE 1 puff BID [facility] Administration Bupropion HCl 150 mg 12/11/20 23:30 12/13/20 09:15 Bupropion Hcl Xl 150 Mg Tab.Er.24h PO 150 mg DAILY [facility] Administration Buspirone HCl 15 mg 12/12/20 09:00 12/13/20 09:17 Buspirone Hcl 5 Mg Tablet PO 15 mg DAILY [facility] Administration Docusate Sodium 100 mg 12/12/20 09:00 12/13/20 09:16 Docusate Sodium 100 Mg Capsule PO 100 mg BID [facility] Administration Fluconazole 150 mg 12/13/20 13:36 Fluconazole 150 Mg Tablet PO 12/13/20 13:37 ONCE ONE Heparin Sodium (Porcine) 5,000 unit 12/11/20 23:30 12/13/20 10:40 Heparin Sodium,Porcine 5,000 Unit/Ml Vial SUBCUT 5,000 unit Q12H [facility] Administration Hydralazine HCl 25 mg 12/12/20 09:00 12/13/20 09:16 Hydralazine Hcl 25 Mg Tablet PO 25 mg DAILY [facility] Administration Protocol Hydromorphone HCl 0.25 mg 12/12/20 13:00 12/13/20 12:43 Hydromorphone Hcl 0.5 Mg/0.5 Ml Syringe IVPUSH 0.25 mg Q3H PRN Administration Pain, Severe (Pain Scale 7-10) Protocol Sodium Chloride 1,000 mls @ 100 mls/hr 12/11/20 23:30 12/13/20 05:54 Ns IVCONT 100 mls/hr .Q10H [facility] Administration Levofloxacin 500 mg in 100 mls @ 100 mls/hr 12/11/20 23:30 12/13/20 01:28 Levaquin IV Infused Q24H [facility] Infusion Metronidazole 500 mg in 100 mls @ 100 mls/hr 12/11/20 23:30 12/13/20 10:56 Flagyl IV Infused Q8H [facility] Infusion Promethazine HCl 12.5 mg/ 50.5 mls @ 202 mls/hr 12/12/20 12:50 12/12/20 14:18 Sodium Chloride IV Infused Q6H PRN Infusion Nausea Lisinopril 2.5 mg 12/12/20 09:00 12/13/20 09:16 Lisinopril 2.5 Mg Tablet PO 2.5 mg DAILY [facility] Administration Protocol Patient Own Med ( 1 each 12/12/20 17:00 12/13/20 12:43 [place] 4% Eye EYE-BOTH 1 each Drops) QID [facility] Administration Omeprazole 40 mg 12/12/20 09:00 12/13/20 09:17 Omeprazole 40 Mg Capsule.Dr PO 40 mg BID [facility] Administration Ondansetron HCl 4 mg 12/11/20 23:20 12/13/20 10:40 Ondansetron Hcl 4 Mg/2 Ml Vial IVPUSH 4 mg Q8H PRN Administration Nausea and Vomiting Pharmacy Consult 1 each 12/11/20 20:09 Consult Rx Perform Med Rec MISCELLANE ONCE PRN Consult order Pregabalin 150 mg 12/12/20 09:00 12/13/20 09:34 Pregabalin 150 Mg Capsule PO 150 mg DAILY [facility] Administration Sodium Chloride 3 ml 12/12/20 00:00 12/13/20 09:18 0.9 % Sodium Chloride Flush 3 Ml Syringe IVFLUSH Not Given QSHIFT [facility] Sumatriptan Succinate 100 mg 12/11/20 23:25 12/12/20 15:57 Sumatriptan Succinate 100 Mg Tablet PO 100 mg DAILY MRX1 PRN Administration Migraine Headache Tiotropium [place] 1 puff 12/12/20 08:00 12/13/20 12:48 Tiotropium [place] 18 Mcg Cap.W.Dev INHALE 1 puff RDAILY [facility] Administration Tizanidine HCl 4 mg 12/11/20 23:30 12/13/20 09:16 Tizanidine Hcl 4 Mg Tablet PO 4 mg Q8H [facility] Administration Zolpidem Tartrate 5 mg 12/11/20 23:25 12/12/20 21:16 Zolpidem Tartrate 5 Mg Tablet PO 5 mg BEDTIME PRN Administration Insomnia Labs CBC & Chem 7: 12/12/20 03:25 12/12/20 03:25 Labs: Laboratory Results - last 24 hr 12/12/20 13:40 POC Glucose 161 H Microbiology Microbiology Results: Microbiology 12/12/20 03:25 Blood Culture - Preliminary Blood - Venous No growth after 24 hours. 12/11/20 22:44 Blood Culture - Preliminary Blood - Venous No growth after 24 hours. Assessment and Plan (1) Abdominal pain: Status: Acute (2) Diverticulitis: Status: Acute (3) Diabetes 1.5, managed as type 2: Status: Acute Assessment and Plan: 60yo F with DM2 and recurrent diverticulitis? and prior sigmoid resection presenting with abdominal pain, and being treated for recurrent diverticulitis and concern for possible bowel obstruction--but clinically doesn't seem obstructed # abdominal pain likely related to acute diverticulitis Less abdominal pain and nausea, WBC trending down being followed by General surgery Continue? IV levofloxacin/metronidazole , clear liquid diet plan is for repeat abdominal CT scan once patient has bowel movement Follow clinical course # Vaginal candidiasis due to antibiotic use, will give Diflucan x1 dose # chronic pain - continue pregabalin, and tizanidine # migraines - no acute pain, prn sumatriptan, Fioricet # asthma, no acute exacerbation - continue ICS/LABA, prn albuterol # HTN--low bp will hold hydralazine and continue Lisinopril # DM2- will add correction-dose lispro, and monitor POCs # VTE Heparin Quality Stroke Does the patient have a stroke diagnosis?: No VTE Prior VTE?: No VTE Risk Level:: Medical - moderate - high VTE Device Contraindication: N/A - Device Ordered VTE Drug Contraindication: N/A - Med Ordered
[2020-12-13] MEDS: SUMAtriptan succinate 100 MG TABLET PO (13:47)
[2020-12-13] MEDS: Fluconazole 150 MG TABLET PO (14:34)
[2020-12-13 16:24] LABS: Glucose, Whole Blood 90 mg/dL (60-115)
[2020-12-13 20:17] LABS: Glucose, Whole Blood 107 mg/dL (60-115)
[2020-12-13] MEDS: Zolpidem Tartrate 5 MG TABLET PO (20:43)
[2020-12-13] MEDS: Albuterol Sulfate (0.042%) 1.25 MG/3 ML VIAL.NEB INHALE (21:42)
[2020-12-13] MEDS: levoFLOXacin/D5W 500 MG/100 ML PIGGYBACK 100 MG IV (23:57)
[2020-12-14] VITALS (8 sets, daily range): BP systolic 116–140; BP diastolic 52–64; PULSE 54–77; RESP 16–20; TEMP 36–36.7; O2SAT 94–96
[2020-12-14] MEDS: HYDROmorphone HCl 0.5 MG/0.5 ML SYRINGE 0.25 MG IVPUSH ×3 (00:04→08:38)
[2020-12-14] MEDS: Butalb/Acetamin/Caff 50/325/40 TABLET 1 TAB PO ×2 (01:06→09:50)
[2020-12-14] MEDS: 0.9 % Sodium Chloride 1,000 ML 100 ML IVCONT (03:46)
[2020-12-14 06:27] LABS: MANUAL DIFF FLAG NO
[2020-12-14 06:38] LABS: Basophils Percent Auto 0.3 % (0-2); Eosinophils Absolute Auto 0.2 X10*3/uL (0.0-0.4); Eosinophils Percent Auto 1.9 % (0-4); Hemoglobin 10.2 g/dl (12.0-16.0); Imm Gran Abs Auto 0.05 X10*3/uL (0.00-0.03); Imm Gran Pct Auto 0.4 % (0.0-0.4); Lymphocytes Absolute Auto 2.2 X10*3/uL (1.2-4.9); Lymphocytes Percent Auto 19.2 % (20-40); Mean Corpuscular HGB Conc 30.9 g/dl (31.0-35.0); Mean Corpuscular Hemoglobin 25.2 pg (27.0-33.0); Mean Corpuscular Volume 81.7 fL (80-98); Mean Platelet Volume 11.4 fL (9.4-12.3); Monocytes Absolute Auto 0.6 X10*3/uL (0.1-1.2); Monocytes Percent Auto 5.3 % (2-11); Neutrophils Absolute Auto 8.4 X10*3/uL (2.0-8.3); Neutrophils Percent Auto 72.9 % (45-73); Platelet Count 256 X10*3/uL (160-400); Red Blood Count 4.04 X10*6/uL (4.20-5.50); Red Cell Distribution Width 15.5 % (11.0-16.0); White Blood Count 11.5 X10*3/uL (4.8-10.8)
[2020-12-14 07:00] LABS: Anion Gap 12 (12-20); Blood Urea Nitrogen 8 mg/dL (9-16); Calcium 8.6 mg/dL (8.4-10.2); Carbon Dioxide 22 mmol/L (22-29); Chloride 109 mmol/L (96-108); Creatinine Clr Calc Pharmacy 83.9; Estimated Glomerular Filt Rate > 60; Glucose Random 126 mg/dL (60-115); Potassium 3.7 mmol/L (3.3-5.1); Sodium 139 mmol/L (135-145)
[2020-12-14 07:52] LABS: Glucose, Whole Blood 130 mg/dL (60-115)
[2020-12-14] MEDS: busPIRone HCl 5 MG TABLET 15 MG PO (07:53)
[2020-12-14] MEDS: Docusate Sodium 100 MG CAPSULE PO (07:54)
[2020-12-14] MEDS: Pregabalin 150 MG CAPSULE PO (07:54)
[2020-12-14] MEDS: Aspirin Enteric Coated 81 MG TABLET.DR PO (07:54)
[2020-12-14] MEDS: Omeprazole 40 MG CAPSULE.DR PO (07:54)
[2020-12-14] MEDS: TiZANidine HCL 4 MG TABLET PO (07:54)
[2020-12-14] MEDS: buPROPion HCl XL 150 MG TAB.ER.24H PO (07:54)
[2020-12-14] MEDS: Atorvastatin Calcium 20 MG TABLET PO (07:55)
[2020-12-14] MEDS: metroNIDAZOLE/NS 500 MG/100 ML PIGGYBACK 100 MG IV (07:56)
[2020-12-14] MEDS: Budesonide 180 MCG AER.POW.BA 1 PUFF INHALE (07:56)
[2020-12-14] MEDS: ondansetron HCL 4 MG/2 ML VIAL IVPUSH (08:38)
--- NOTE | 2020-12-14 08:59 | PM.PNGS ---
Subjective Subjective Date of Service: 12/14/20 <Nova Dennis PA-C - Last Filed: 12/14/20 09:01> 12/14/20 <Ramses Rabago MD - Last Filed: 12/14/20 12:05> Interval history: Had multiple bowel movements. Feeling a little better. Wants to eat. <Nova Dennis PA-C - Last Filed: 12/14/20 09:01> Physical Exam Vital Signs: Vital Signs: Last Vital Signs Temp 97.1 F 12/14/20 07:41 Pulse 54 12/14/20 07:41 Resp 18 12/14/20 07:41 BP 140/58 H 12/14/20 07:41 Pulse Ox 96 12/14/20 07:41 Body Mass Index 31.8 <VICKY Prado Last Filed: 12/14/20 09:01> Const: General: comfortable and no acute distress <Nova Dennis PA-C - Last Filed: 12/14/20 09:01> Orientation/consciousness: patient oriented x3 <Nova Dennis PA-C - Last Filed: 12/14/20 09:01> GI: Inspection: No distended <Nova Dennis PA-C - Last Filed: 12/14/20 09:01> Palpation (GI): Tenderness to palpation present (GI) (lower abdomen), no guarding and not rigid <Nova Dennis PA-C - Last Filed: 12/14/20 09:01> Percussion: Yes normal to percussion <Nova Dennis PA-C - Last Filed: 12/14/20 09:01> Skin: General skin exam: no rashes or lesions noted <Nova Dennis PA-C - Last Filed: 12/14/20 09:01> Neuro: General: patient oriented x3 <VICKY Prado Last Filed: 12/14/20 09:01> Procedures Date of Service Date of Service: 12/14/20 <VICKY Prado Last Filed: 12/14/20 09:01> Progress Note: A&P Assessment and plan (1) Diverticulitis: Status: Acute <Nova Dennis PA-C - Last Filed: 12/14/20 09:01> (2) Abdominal pain: Status: Acute <Nova Dennis PA-C - Last Filed: 12/14/20 09:01> Assessment and Plan: feels much better has had BMs good flatus abd soft very minimal tenderness good vital signs has remained afebrile WBC down she wants to go home tolerating diet well will dc home on PO abx seen and examined - agree with CAHRLIE Dennis <Ramses Rabago MD - Last Filed: 12/14/20 12:05> Assessment and Plan: 60 year old female admitted with abdominal pain, etiology uncertain. She has history of diverticulitis hwoever CT not done for this admission yet in view of presence of dense residual contrast from barium swallow. Given MiraLax, now moving bowels with improvement. Her abdomen remains benign. Will advance diet, continue abx. Possibly home over the weekend. Patient comfortable with plan. <Nova Dennis PA-C - Last Filed: 12/14/20 09:01> Fall Risk Details Current Medications: Current Medications Generic Name Dose Route Start Last Admin Trade Name Freq PRN Reason Stop Dose Admin Acetaminophen/Butalbital/Caffeine 1 tab 12/13/20 08:08 12/14/20 01:06 Butalb/Acetamin/Caff 50/325/40 Tablet PO 1 tab Q4H PRN Administration Headache Albuterol Sulfate 2 puff 12/11/20 23:25 Albuterol Sulfate 90 Mcg 8 Gm Inhaler INHALE Q4H PRN wheezing Albuterol Sulfate 1.25 mg 12/12/20 00:10 12/13/20 21:42 Albuterol Sulfate (0.042%) 1.25 Mg/3 Ml Vial.Neb INHALE 1.25 mg QID PRN Administration Shortness Of Breath Aspirin 81 mg 12/12/20 09:00 12/14/20 07:54 Aspirin Enteric Coated 81 Mg Tablet. PO 81 mg DAILY [facility] Administration Atorvastatin Calcium 20 mg 12/12/20 09:00 12/14/20 07:55 Atorvastatin Calcium 20 Mg Tablet PO 20 mg DAILY [facility] Administration Budesonide 1 puff 12/12/20 09:00 12/14/20 07:56 Budesonide 180 Mcg Aer.Pow.Ba INHALE 1 puff BID [facility] Administration Bupropion HCl 150 mg 12/11/20 23:30 12/14/20 07:54 Bupropion Hcl Xl 150 Mg Tab.Er.24h PO 150 mg DAILY [facility] Administration Buspirone HCl 15 mg 12/12/20 09:00 12/14/20 07:53 Buspirone Hcl 5 Mg Tablet PO 15 mg DAILY [facility] Administration Dextrose 25 gm 12/13/20 13:49 Dextrose 50 % 25 Gm/50 Ml Vial IVPUSH Q15M PRN per Hypoglycemia Standing Ord. Protocol Docusate Sodium 100 mg 12/12/20 09:00 12/14/20 07:54 Docusate Sodium 100 Mg Capsule PO 100 mg BID [facility] Administration Glucose 15 gm 12/13/20 13:49 Glucose Gel 15 Gm Gel..Gram. PO Q15M PRN per Hypoglycemia Standing Ord. Protocol Heparin Sodium (Porcine) 5,000 unit 12/11/20 23:30 12/13/20 23:57 Heparin Sodium,Porcine 5,000 Unit/Ml Vial SUBCUT 5,000 unit Q12H [facility] Administration Hydromorphone HCl 0.25 mg 12/12/20 13:00 12/14/20 08:38 Hydromorphone Hcl 0.5 Mg/0.5 Ml Syringe IVPUSH 0.25 mg Q3H PRN Administration Pain, Severe (Pain Scale 7-10) Protocol Sodium Chloride 1,000 mls @ 100 mls/hr 12/11/20 23:30 12/14/20 03:46 Ns IVCONT 100 mls/hr .Q10H [facility] Administration Levofloxacin 500 mg in 100 mls @ 100 mls/hr 12/11/20 23:30 12/14/20 01:02 Levaquin IV Infused Q24H [facility] Infusion Metronidazole 500 mg in 100 mls @ 100 mls/hr 12/11/20 23:30 12/14/20 07:56 Flagyl IV 100 mls/hr Q8H [facility] Administration Promethazine HCl 12.5 mg/ 50.5 mls @ 202 mls/hr 12/12/20 12:50 12/12/20 14:18 Sodium Chloride IV Infused Q6H PRN Infusion Nausea Insulin Human Lispro 0 unit 12/13/20 16:30 12/14/20 08:38 Insulin Lispro 100 Unit/Ml 3 Ml Vial SUBCUT Not Given QIDACHS [facility] Protocol Loratadine 10 mg 12/14/20 21:00 Loratadine 10 Mg Tablet PO BEDTIME [facility] Patient Own Med ( 1 each 12/12/20 17:00 12/14/20 07:52 [place] 4% Eye EYE-BOTH 1 each Drops) QID [facility] Administration Omeprazole 40 mg 12/12/20 09:00 12/14/20 07:54 Omeprazole 40 Mg Capsule.Dr PO 40 mg BID [facility] Administration Ondansetron HCl 4 mg 12/11/20 23:20 12/14/20 08:38 Ondansetron Hcl 4 Mg/2 Ml Vial IVPUSH 4 mg Q8H PRN Administration Nausea and Vomiting Pharmacy Consult 1 each 12/11/20 20:09 Consult Rx Perform Med Rec MISCELLANE ONCE PRN Consult order Pregabalin 150 mg 12/12/20 09:00 12/14/20 07:54 Pregabalin 150 Mg Capsule PO 150 mg DAILY [facility] Administration Sodium Chloride 3 ml 12/12/20 00:00 12/14/20 07:55 0.9 % Sodium Chloride Flush 3 Ml Syringe IVFLUSH Not Given QSHIFT [facility] Sucralfate 1 gm 12/14/20 12:00 Sucralfate 1 Gm Tablet PO QIDWS [facility] Sumatriptan Succinate 100 mg 12/11/20 23:25 12/13/20 13:47 Sumatriptan Succinate 100 Mg Tablet PO 100 mg DAILY MRX1 PRN Administration Migraine Headache Tiotropium [place] 1 puff 12/12/20 08:00 12/14/20 07:53 Tiotropium [place] 18 Mcg Cap.W.Dev INHALE 1 puff RDAILY [facility] Administration Tizanidine HCl 4 mg 12/11/20 23:30 12/14/20 07:54 Tizanidine Hcl 4 Mg Tablet PO 4 mg Q8H [facility] Administration Zolpidem Tartrate 5 mg 12/11/20 23:25 12/13/20 20:43 Zolpidem Tartrate 5 Mg Tablet PO 5 mg BEDTIME PRN Administration Insomnia <Nova Dennis PA-C - Last Filed: 12/14/20 09:01> Time Spent With Patient Time: Total time spent is greater than 50% in coordination of care (as documented) at patient's floor/unit and/or counseling patient: <Nova Dennis PA-C - Last Filed: 12/14/20 09:01> Time with patient: 15 - 24 minutes <Nova Dennis PA-C - Last Filed: 12/14/20 09:01> Quality Stroke Does the patient have a stroke diagnosis?: No <Nova Dennis PA-C - Last Filed: 12/14/20 09:01> VTE Prior VTE?: No <Nova Dennis PA-C - Last Filed: 12/14/20 09:01> VTE Risk Level:: Medical - moderate - high <Nova Dennis PA-C - Last Filed: 12/14/20 09:01> VTE Device Contraindication: N/A - Device Ordered <Nova Dennis PA-C - Last Filed: 12/14/20 09:01> VTE Drug Contraindication: N/A - Med Ordered <Nova Dennis PA-C - Last Filed: 12/14/20 09:01>
--- NOTE | 2020-12-14 11:22 | MHC.CM.PN ---
PER PHYSICIAN ROUNDS, LIKELY DISCHARGE HOME TODAY - SELF CARE.
[2020-12-14] MEDS: Sucralfate 1 GM TABLET PO (11:38)
[2020-12-14] MEDS: Insulin Lispro 100 UNIT/ML 3 ML VIAL SUBCUT (11:38)
[2020-12-14] MEDS: Heparin Sodium,Porcine 5,000 UNIT/ML VIAL 5000 UNIT SUBCUT (11:39)
[2020-12-14 11:43] LABS: Glucose, Whole Blood 154 mg/dL (60-115)
--- NOTE | 2020-12-14 12:22 | MHC.CM.PN ---
HOME - SELF CARE ORDER IS IN. RN AWARE OF PLAN.
--- NOTE | 2020-12-14 13:12 | HO.PM.IMPN ---
Subjective Subjective Date of Service: 12/14/20 Interval History: Feeling better this morning denies abdominal pain tolerated breakfast, no nausea, no vomiting, no diarrhea, had a regular bowel movement. Review of Systems General no headache, no dizziness no fever chills.? CVS no chest pain, no palpitation.? Respiratory no cough, no sob? Gastrointestinal no abdominal pain, no diarrhea Physical Exam Vital Signs: Vital Signs: Last Vital Signs Temp 96.8 F 12/14/20 11:19 Pulse 57 12/14/20 11:19 Resp 18 12/14/20 11:19 BP 116/52 L 12/14/20 11:19 Pulse Ox 96 12/14/20 11:19 Body Mass Index 31.8 General no acute distress.? Neck supple no JVD. CVS? regular rate rhythm, Respiratory lungs clear to auscultation, no respiratory distress Gastrointestinal abdomen soft, nontender, bowel sounds audible, no guarding , no rigidity. Extremities no edema. Neuro nonfocal Skin no rash Objective Data Current Medications Generic Name Dose Route Start Last Admin Trade Name Freq PRN Reason Stop Dose Admin Acetaminophen/Butalbital/Caffeine 1 tab 12/13/20 08:08 12/14/20 09:50 Butalb/Acetamin/Caff 50/325/40 Tablet PO 1 tab Q4H PRN Administration Headache Albuterol Sulfate 2 puff 12/11/20 23:25 Albuterol Sulfate 90 Mcg 8 Gm Inhaler INHALE Q4H PRN wheezing Albuterol Sulfate 1.25 mg 12/12/20 00:10 12/13/20 21:42 Albuterol Sulfate (0.042%) 1.25 Mg/3 Ml Vial.Neb INHALE 1.25 mg QID PRN Administration Shortness Of Breath Aspirin 81 mg 12/12/20 09:00 12/14/20 07:54 Aspirin Enteric Coated 81 Mg Tablet.Dr PO 81 mg DAILY LIBORIO Administration Atorvastatin Calcium 20 mg 12/12/20 09:00 12/14/20 07:55 Atorvastatin Calcium 20 Mg Tablet PO 20 mg DAILY LIBORIO Administration Budesonide 1 puff 12/12/20 09:00 12/14/20 07:56 Budesonide 180 Mcg Aer.Pow.Ba INHALE 1 puff BID LIBORIO Administration Bupropion HCl 150 mg 12/11/20 23:30 12/14/20 07:54 Bupropion Hcl Xl 150 Mg Tab.Er.24h PO 150 mg DAILY LIBORIO Administration Buspirone HCl 15 mg 12/12/20 09:00 12/14/20 07:53 Buspirone Hcl 5 Mg Tablet PO 15 mg DAILY LIBORIO Administration Dextrose 25 gm 12/13/20 13:49 Dextrose 50 % 25 Gm/50 Ml Vial IVPUSH Q15M PRN per Hypoglycemia Standing Ord. Protocol Docusate Sodium 100 mg 12/12/20 09:00 12/14/20 07:54 Docusate Sodium 100 Mg Capsule PO 100 mg BID LIBORIO Administration Glucose 15 gm 12/13/20 13:49 Glucose Gel 15 Gm Gel..Gram. PO Q15M PRN per Hypoglycemia Standing Ord. Protocol Heparin Sodium (Porcine) 5,000 unit 12/11/20 23:30 12/14/20 11:39 Heparin Sodium,Porcine 5,000 Unit/Ml Vial SUBCUT 5,000 unit Q12H LIBORIO Administration Hydromorphone HCl 0.25 mg 12/12/20 13:00 12/14/20 08:38 Hydromorphone Hcl 0.5 Mg/0.5 Ml Syringe IVPUSH 0.25 mg Q3H PRN Administration Pain, Severe (Pain Scale 7-10) Protocol Levofloxacin 500 mg in 100 mls @ 100 mls/hr 12/11/20 23:30 12/14/20 01:02 Levaquin IV Infused Q24H LIBORIO Infusion Metronidazole 500 mg in 100 mls @ 100 mls/hr 12/11/20 23:30 12/14/20 09:24 Flagyl IV Infused Q8H LIBORIO Infusion Promethazine HCl 12.5 mg/ 50.5 mls @ 202 mls/hr 12/12/20 12:50 12/12/20 14:18 Sodium Chloride IV Infused Q6H PRN Infusion Nausea Insulin Human Lispro 0 unit 12/13/20 16:30 12/14/20 11:38 Insulin Lispro 100 Unit/Ml 3 Ml Vial SUBCUT 2 unit QIDACHS LIBORIO Administration Protocol Loratadine 10 mg 12/14/20 21:00 Loratadine 10 Mg Tablet PO BEDTIME LIBORIO Patient Own Med ( 1 each 12/12/20 17:00 12/14/20 07:52 [place] 4% Eye EYE-BOTH 1 each Drops) QID LIBORIO Administration Omeprazole 40 mg 12/12/20 09:00 12/14/20 07:54 Omeprazole 40 Mg Capsule.Dr PO 40 mg BID LIBORIO Administration Ondansetron HCl 4 mg 12/11/20 23:20 12/14/20 08:38 Ondansetron Hcl 4 Mg/2 Ml Vial IVPUSH 4 mg Q8H PRN Administration Nausea and Vomiting Pharmacy Consult 1 each 12/11/20 20:09 Consult Rx Perform Med Rec MISCELLANE ONCE PRN Consult order Pregabalin 150 mg 12/12/20 09:00 12/14/20 07:54 Pregabalin 150 Mg Capsule PO 150 mg DAILY LIBORIO Administration Sodium Chloride 3 ml 12/12/20 00:00 12/14/20 07:55 0.9 % Sodium Chloride Flush 3 Ml Syringe IVFLUSH Not Given [facility] Sucralfate 1 gm 12/14/20 12:00 12/14/20 11:38 Sucralfate 1 Gm Tablet PO 1 gm QIDWMHS LIBORIO Administration Sumatriptan Succinate 100 mg 12/11/20 23:25 12/13/20 13:47 Sumatriptan Succinate 100 Mg Tablet PO 100 mg DAILY MRX1 PRN Administration Migraine Headache Tiotropium [place] 1 puff 12/12/20 08:00 12/14/20 07:53 Tiotropium [place] 18 Mcg Cap.W.Dev INHALE 1 puff RDAILY LIBORIO Administration Tizanidine HCl 4 mg 12/11/20 23:30 12/14/20 07:54 Tizanidine Hcl 4 Mg Tablet PO 4 mg Q8H LIBORIO Administration Zolpidem Tartrate 5 mg 12/11/20 23:25 12/13/20 20:43 Zolpidem Tartrate 5 Mg Tablet PO 5 mg BEDTIME PRN Administration Insomnia Labs CBC & Chem 7: 12/14/20 06:03 12/14/20 06:03 Labs: Laboratory Results - last 24 hr 12/13/20 12/13/20 12/14/20 16:16 20:10 06:03 MCV 81.7 MCH 25.2 L MCHC 30.9 L RDW 15.5 Plt Count 256 MPV 11.4 Immature Gran % (Auto) 0.4 Neut % (Auto) 72.9 Lymph % (Auto) 19.2 L [place] % (Auto) 5.3 Eos % (Auto) 1.9 Baso % (Auto) 0.3 Lymph # (Auto) 2.2 [place] # (Auto) 0.6 Eos # (Auto) 0.2 Baso # (Auto) 0.0 Abs Immat Gran (auto) 0.05 H Absolute Neuts (auto) 8.4 H Absolute Nucleated RBC 0.000 Nucleated RBC % (auto) 0.0 Anion Gap Estim Creat Clear Calc Estimated GFR POC Glucose 90 107 Random Glucose Calcium 12/14/20 12/14/20 12/14/20 06:03 07:40 11:18 MCV MCH MCHC RDW Plt Count MPV Immature Gran % (Auto) Neut % (Auto) Lymph % (Auto) [place] % (Auto) Eos % (Auto) Baso % (Auto) Lymph # (Auto) [place] # (Auto) Eos # (Auto) Baso # (Auto) Abs Immat Gran (auto) Absolute Neuts (auto) Absolute Nucleated RBC Nucleated RBC % (auto) Anion Gap 12 Estim Creat Clear Calc 83.9 Estimated GFR > 60 POC Glucose 130 H 154 H Random Glucose 126 H Calcium 8.6 Microbiology Microbiology Results: Microbiology 12/12/20 03:25 Blood Culture - Preliminary Blood - Venous No growth after 48 hours. 12/11/20 22:44 Blood Culture - Preliminary Blood - Venous No growth after 48 hours. Assessment and Plan (1) Diverticulitis: Status: Acute (2) Abdominal pain: Status: Acute (3) Diabetes 1.5, managed as type 2: Status: Acute Assessment and Plan: 60yo F with DM2 and recurrent diverticulitis? and prior sigmoid resection presenting with abdominal pain, and being treated for recurrent diverticulitis and concern for possible bowel obstruction--but clinically doesn't seem obstructed # abdominal pain likely related to acute diverticulitis ?? Abdominal pain resolved, had regular bowel movement, no nausea, no vomiting, tolerating diet will DC IV fluid on? IV levofloxacin/metronidazole day 3 question will need longer duration of antibiotic due to recurrent diverticulitis # Vaginal candidiasis due to antibiotic use, s/p Diflucan x1 dose # chronic pain - continue pregabalin, and tizanidine # migraines - no acute pain, prn sumatriptan, Fioricet # asthma, no acute exacerbation - continue ICS/LABA, prn albuterol # HTN--BP stable, is on low-dose hydralazine and lisinopril, will DC hydralazine continue lisinopril upon discharge # DM2- blood sugar 154, resume home medication # VTE Heparin Quality Stroke Does the patient have a stroke diagnosis?: No VTE Prior VTE?: No VTE Risk Level:: Medical - moderate - high VTE Device Contraindication: N/A - Device Ordered VTE Drug Contraindication: N/A - Med Ordered
--- NOTE | 2020-12-18 09:05 | PM.DS ---
DS: Providers Provider Date of Service: 12/14/20 Date of admission: 12/11/20 23:20 Primary care physician: Venancio Lomeli NP Consults: 12/11/20 23:20 Consult to Hospitalist Routine Consulting Provider: Hospitalist Reason For Exam: DM, COPD DS: Diagnosis Discharge Diagnosis (1) Diverticulitis: Status: Acute (2) Abdominal pain: Status: Acute (3) Diabetes 1.5, managed as type 2: Status: Acute DS: Medications Discharge Medications Home Medications: Home Medications Medication Instructions Recorded Confirmed atorvastatin 20 mg tablet 1 tab PO DAILY 04/17/20 12/11/20 bupropion HCl 150 mg 24 hr tablet, 1 tab PO QAM 04/17/20 12/11/20 extended release calcium carbonate 600 mg (1,500 1 tab PO BID 04/17/20 12/11/20 mg)-vitamin D3 400 unit tablet empagliflozin 10 mg tablet 1 tab PO DAILY 04/17/20 12/11/20 (Jardiance) glimepiride 4 mg tablet 4 mg PO QAM 04/17/20 12/11/20 levocetirizine 5 mg tablet 1 tab PO BEDTIME 04/17/20 12/11/20 omeprazole 20 mg capsule,delayed 2 cap PO BID 04/17/20 12/11/20 release pregabalin 150 mg capsule 1 cap PO DAILY 04/17/20 12/11/20 sucralfate 1 gram tablet 1 tab PO QIDWMHS 04/17/20 12/11/20 sumatriptan succinate 100 mg tablet 100 mg PO DAILY MRX1 PRN 04/17/20 12/11/20 blood sugar diagnostic #10 ea 09/28/20 12/03/20 lancets 28 gauge #100 ea 09/28/20 12/03/20 albuterol sulfate 90 mcg/actuation 2 puff INHALATION Q4H PRN 10/09/20 12/11/20 aerosol inhaler buspirone 15 mg tablet 1 tab PO DAILY 11/07/20 12/11/20 galcanezumab-gnlm 120 mg/mL 120 mg SUBCUT Q4W 11/07/20 12/11/20 subcutaneous pen injector (Emgality Pen) glimepiride 2 mg tablet 2 mg PO BID@1400,2100 11/07/20 12/11/20 glipizide 2.5 mg tablet, extended 1 tab PO DAILY 11/07/20 12/11/20 release 24 hr lisinopril 2.5 mg tablet 2.5 mg PO DAILY 11/07/20 12/11/20 zileuton 600 mg tablet,extended 2 tab PO BID 11/07/20 12/11/20 release 12hr mphase aspirin 81 mg tablet,delayed 81 mg PO DAILY 12/11/20 12/11/20 release budesonide 180 mcg/actuation 1 puff PO BID 12/11/20 12/11/20 breath activated powder inhaler (Pulmicort Flexhaler) rhztukjdfr-rnjzzbg-xtihdfub 50 1 cap PO Q6H PRN 12/11/20 12/11/20 mg-325 mg-40 mg capsule cromolyn 4 % eye drops 1 drp OPHTHALMIC (EYE) QID 12/11/20 12/11/20 hydralazine 25 mg tablet 1 tab PO DAILY 12/11/20 12/11/20 levalbuterol HCl 0.31 mg/3 mL 0.31 mg INHALATION QID PRN 12/11/20 12/11/20 solution for nebulization nystatin 100,000 unit/gram topical 1 appl TOPICAL BID 12/11/20 12/11/20 powder tiotropium bromide 2.5 2 puff INHALATION DAILY 12/11/20 12/11/20 mcg/actuation mist for inhalation (Spiriva Respimat) tizanidine 4 mg tablet 1 tab PO Q8H 12/11/20 12/11/20 zolpidem 5 mg tablet 1 tab PO BEDTIME PRN 12/11/20 12/11/20 Previous Rx's Medication Instructions Recorded docusate sodium 100 mg capsule 100 mg PO BID #60 cap 11/21/20 (Colace) ondansetron 8 mg disintegrating 8 mg PO Q8H PRN #30 tab 11/21/20 tablet oxycodone 5 mg tablet 5 mg PO Q6H PRN #12 tab 11/21/20 levofloxacin 500 mg tablet 500 mg PO DAILY 5 Days #5 tab 12/14/20 metronidazole 500 mg tablet 500 mg PO TID #15 tab 12/14/20 (Flagyl) oxycodone 5 mg tablet 5 mg PO TID PRN #14 tab 12/14/20 DS: Summary Hospital Course Hospital Course: BRIEF HPI: Pati Rawls is a 60 year old female who came to the emergency room today for a 4 day history of abdominal pain.? She describes it is mostly in the lower abdomen associated with nausea without vomiting. She feels that her stomach contents go up all the way into the upper chest.? She has had similar problems for the past month.? She was admitted twice in October because of this similar problem. She therefore underwent an EGD and colonoscopy with Dr. Mendiola as an outpatient November 29 and she was noted to have erythema of the distal stomach and diverticulosis of the remaining colon.? She had a barium swallow study last week which was unremarkable. She has a history of diverticular disease and had previously undergone anterior resection [place] [address] Paige with a diverting loop ileostomy because of her diverticular disease.? The ileostomy was reversed in 2011. She says she has had about 3 episodes of diverticulitis again since then.? Prior to her admission last month, her last episode of abdominal pain was in 2018. She had a CAT scan during her recent admission which showed mild diverticulitis proximal to the staple line in the left colon, and multiple nonobstructing hernias of the abdominal wall. She denies diarrhea constipation.? She denies any fever or chills at home. Ms. Rawls had called Dr. Mendiola's office yesterday and was instructed to go to the emergency room. HOSPITAL COURSE: She was unable to have a CT scan right now because her films show dense residual contrast in the colon from her recent barium swallow last week. She did have a leukocytosis but this may have been secondary to dehydration. The patient was admitted to the surgical service for further treatment of her abdominal pain. She has had recurrent episodes of abdominal pain which were unclear with regard to etiology. She was started on IV antibiotics for presumed diverticulitis although etiology of her abdominal pain remained uncertain.? She was started on miralax to clear her colon so as to allow her to be able to undergo a CT scan for futher evaluation. A hospitalist consult was obtained for management of her medical comorbidities. The patient's WBC count continuously downtrended on IV abx and her symptoms slowly improved and resolved. She began to have multiple bowel movements and was tolerating liquids. In view of her symptom resolution and marked clinical improvement, it was decided to hold off on doing another CT scan as she has had multiple in the past. Her diet was therefore advanced to low residue which was she was tolerating. She felt well and ready for discharge. She was discharged to home on a PO course of levaquin and flagyl with plan to follow up with Dr. Mendiola. Status at Discharge Functional status at discharge: independent ambulation Overall status at discharge: patient is progressing back to baseline Time Spent with Patient Time attestation: Total time spent providing and/or coordinating discharge services: Discharge coordination time: Greater than 30 minutes Quality: Stroke Does the patient have a stroke diagnosis?: No Physical Exam Vital Signs: Vital Signs: Last Vital Signs Temp 96.8 F 12/14/20 11:19 Pulse 57 12/14/20 11:19 Resp 18 12/14/20 11:19 BP 116/52 L 12/14/20 11:19 Pulse Ox 96 12/14/20 11:19 Body Mass Index 31.8 Const: General: comfortable, no acute distress and alert Orientation/consciousness: patient oriented x3 Resp: Effort & Inspection: normal respiratory effort GI: Inspection: No distended Palpation (GI): Soft to palpation, Tenderness to palpation present (GI) (lower abdomen) Negative for with no rebound tenderness, no guarding and not rigid Percussion: Yes normal to percussion Skin: General skin exam: no rashes or lesions noted Neuro: General: patient oriented x3 Extrem: General: Yes no clubbing, cyanosis or edema Discharge Plan Discharge Patient Disposition: Home, Self-Care Discharge Diagnosis: abdominal pain Referrals: Garland Mendiola MD [Physician] - 2 Weeks Venancio Lomeli NP [Primary Care Provider] - 1 Week Discharge Medications: New levofloxacin 500 mg tablet 500 mg PO DAILY 5 Days Qty: 5 RF: 0 metronidazole [Flagyl] 500 mg tablet 500 mg PO TID Qty: 15 RF: 0 oxycodone 5 mg tablet 5 mg PO TID PRN (Reason: pain) Qty: 14 RF: 0 Continued glipizide 2.5 mg tablet extended release 24hr 1 tab PO DAILY RF: 0 zileuton 600 mg tablet, ER multiphase 12 hr 2 tab PO BID RF: 0 glimepiride 2 mg tablet 2 mg PO BID@1400,2100 RF: 0 Emgality Pen 120 mg/mL Pen Injector 120 mg SUBCUT Q4W RF: 0 lisinopril 2.5 mg Tablet 2.5 mg PO DAILY RF: 0 buspirone 15 mg tablet 1 tab PO DAILY RF: 0 atorvastatin 20 mg tablet 1 tab PO DAILY RF: 0 glimepiride 4 mg tablet 4 mg PO QAM RF: 0 pregabalin 150 mg capsule 1 cap PO DAILY RF: 0 Jardiance 10 mg tablet 1 tab PO DAILY RF: 0 sumatriptan succinate 100 mg tablet 100 mg PO DAILY MRX1 PRN (Reason: Migraine Headache) RF: 0 sucralfate 1 gram tablet 1 tab PO QIDWMHS RF: 0 omeprazole 20 mg capsule,delayed release(DR/EC) 2 cap PO BID RF: 0 bupropion HCl 150 mg tablet extended release 24 hr 1 tab PO QAM RF: 0 calcium carbonate-vitamin D3 600 mg(1,500mg) -400 unit tablet 1 tab PO BID RF: 0 levocetirizine 5 mg tablet 1 tab PO BEDTIME RF: 0 docusate sodium [Colace] 100 mg capsule 100 mg PO BID Qty: 60 RF: 0 ondansetron 8 mg tablet,disintegrating 8 mg PO Q8H PRN (Reason: nausea and vomiting) Qty: 30 RF: 0 oxycodone 5 mg tablet 5 mg PO Q6H PRN (Reason: pain) Qty: 12 RF: 0 tizanidine 4 mg tablet 1 tab PO Q8H RF: 0 cromolyn 4 % drops 1 drp ophthalmic (eye) QID RF: 0 hydralazine 25 mg tablet 1 tab PO DAILY RF: 0 ugtsmsgbst-spyzfzu-lxshiksj 50-325-40 mg capsule 1 cap PO Q6H PRN (Reason: Headache) RF: 0 zolpidem 5 mg tablet 1 tab PO BEDTIME PRN (Reason: Insomnia) RF: 0 nystatin 100,000 unit/gram powder 1 appl topical BID RF: 0 levalbuterol HCl 0.31 mg/3 mL solution for nebulization 0.31 mg inhalation QID PRN (Reason: Shortness Of Breath) RF: 0 Pulmicort Flexhaler 180 mcg/actuation aerosol powdr breath activated 1 puff PO BID RF: 0 Spiriva Respimat 2.5 mcg/actuation mist 2 puff inhalation DAILY RF: 0 aspirin 81 mg Tablet,Delayed Release (Dr/Ec) 81 mg PO DAILY RF: 0 (DME) blood sugar diagnostic Strip See Rx Instructions ea Not Applicable TID Qty: 10 RF: 0 (DME) lancets 28 gauge misc See Rx Instructions ea topical TID Qty: 100 RF: 0 albuterol sulfate 90 mcg/actuation HFA aerosol inhaler 2 puff inhalation Q4H PRN (Reason: wheezing) RF: 0 Discharge Orders: Discharge Order (Routine); Ordered 12/14/20 Ordered By: Ramses Rabago Activity on Discharge: As tolerated Stand Alone Forms: Patient Portal Discharge page Care Plan Goals: control DM ffup with GI Health Concerns: recurrent abdl pain blood sugar control Plan of Treatment: control DM antibiotics for presumed diverticulitis Assessment: much improved doing well Discharge Date/Time: 12/14/20 13:51
== END 2020-12-14 13:51 | disposition home or self-care (01) | DRG 392 ==
LOC: HO.ED 23:23 → HO.S3 23:41
PROVIDERS: Hospitalist; Physician Assistant; Admitting Provider Surgery; Emergency Provider Student in an Organized Health Care Education/Training Program; PCP Nurse Practitioner Family; Visit Provider Surgery
DX: K57.92 Diverticulitis of intestine, part unspecified, without perforation or abscess without bleeding (principal); G89.29 Other chronic pain; J45.909 Unspecified asthma, uncomplicated; E11.9 Type 2 diabetes mellitus without complications; I10 Essential (primary) hypertension; E86.0 Dehydration; B37.3 Candidiasis of vulva and vagina; T36.95XA Adverse effect of unspecified systemic antibiotic, initial encounter; Y92.239 Unspecified place in hospital as the place of occurrence of the external cause; Z20.822 Contact with and (suspected) exposure to COVID-19; Z88.0 Allergy status to penicillin; Z88.5 Allergy status to narcotic agent; Z79.82 Long term (current) use of aspirin; Z79.899 Other long term (current) drug therapy
CPT/HCPCS: 36415; 74177; 80048; 80053; 81003; 82947; 83605; 83690; 83735; 85025; 87040; 87635; 96361; 96365; 96375; 99284; 99285; J1170; J1885; J1956; J2270; J2405; J2550

== ENCOUNTER 2020-12-20 13:18 | Outpatient (REF) | payer MEDICARE, MEDICAID, SELFPAY ==
--- NOTE | ~2020-12-20 | US_ITS ---
EXAMINATION: US RETROPERITONEAL LIMITED (RENAL ONLY) CLINICAL INFORMATION: CT abdomen and pelvis 12/11/2020. X-ray abdomen 07/17/2012. COMPARISON: None TECHNIQUE: Real-time imaging of the kidneys. FINDINGS: RIGHT KIDNEY: 11.9 x 4.8 x 4.4 cm (SAG x AP x TRV). The kidney is normal in size, contour, and echogenicity. Renal cortical thickness is normal. There is a cyst in the midpole that measures 9 x 6 x 6 mm. No renal calculi or hydronephrosis. LEFT KIDNEY: 11.4 x 5.2 x 5.3 cm (SAG x AP x TRV). The kidney is normal in size, contour, and echogenicity. Renal cortical thickness is normal. There is a 3 x 1 mm echogenic density in the midpole suggestive of a small stone. No focal parenchymal lesions or hydronephrosis. US/US renal BI IMPRESSION: Small left renal stone. Small right renal cyst..
== END 2020-12-20 13:19 | disposition home or self-care (01) ==
LOC: HO.US 13:18
PROVIDERS: Visit Provider Urology
DX: N20.0 Calculus of kidney (principal)
CPT/HCPCS: 76775

== ENCOUNTER → 2020-12-27 12:59 | Outpatient (BNVA) | payer MEDICARE, MEDICAID, SELFPAY | PROVIDERS: PCP Family Medicine | CPT/HCPCS: Q3014 ==

== ENCOUNTER → 2021-01-04 11:35 | Outpatient (BNVA) | payer MEDICARE, MEDICAID, SELFPAY | PROVIDERS: PCP Family Medicine; Visit Provider Internal Medicine Gastroenterology | DX: R10.13 Epigastric pain (principal); R10.30 Lower abdominal pain, unspecified | CPT/HCPCS: 99212 ==

== ENCOUNTER 2021-06-27 12:42 | Outpatient (REF) | payer MEDICARE, MEDICAID, SELFPAY ==
--- NOTE | ~2021-06-27 | US_ITS ---
EXAMINATION: US RETROPERITONEAL LIMITED (RENAL ONLY) CLINICAL INFORMATION: Renal stones. COMPARISON: Renal ultrasound 12/20/2020. CT abdomen and pelvis 12/11/2020. TECHNIQUE: Real-time imaging of the kidneys. FINDINGS: RIGHT KIDNEY: 10.6 x 4.68 x 5.85 cm (SAG x AP x TRV). The kidney is normal in size, contour, and echogenicity. Renal cortical thickness is normal. There is a 8 x 6 x 7 mm cyst exophytic to the upper pole. No renal calculi or hydronephrosis. LEFT KIDNEY: 11.4 x 4.91 x 5.89 cm (SAG x AP x TRV). The kidney is normal in size, contour, and echogenicity. Renal cortical thickness is normal. There is a 3 mm stone in the midpole. No focal parenchymal lesions or hydronephrosis. US/US renal BI IMPRESSION: Small left renal stone. Small right renal cyst.
== END 2021-06-27 12:43 | disposition home or self-care (01) ==
LOC: HO.HMGCX 12:42
PROVIDERS: PCP Family Medicine
DX: N20.0 Calculus of kidney (principal)
CPT/HCPCS: 76775

== ENCOUNTER → 2021-07-18 13:02 | Outpatient (BNVA) | payer MEDICARE, MEDICAID, SELFPAY | PROVIDERS: PCP Family Medicine | DX: Z13.89 Encounter for screening for other disorder (principal) | CPT/HCPCS: Q3014 ==

== ENCOUNTER 2021-07-24 13:01 | Outpatient (REF) | payer MEDICARE, MEDICAID, SELFPAY | END 2021-07-24 13:02 | disposition home or self-care (01) | LOC: HO.HMGCLDS 13:01 | DX: N39.0 Urinary tract infection, site not specified (principal) | CPT/HCPCS: 87086; 87147 ==

== ENCOUNTER → 2021-07-29 11:21 | Outpatient (BNVA) | payer MEDICARE, MEDICAID, SELFPAY | PROVIDERS: PCP Family Medicine; Visit Provider Internal Medicine Gastroenterology | DX: R10.30 Lower abdominal pain, unspecified (principal) | CPT/HCPCS: Q3014 ==

== ENCOUNTER 2022-01-14 14:21 | Outpatient (REF) | payer MEDICARE, MEDICAID, SELFPAY ==
--- NOTE | ~2022-01-14 | US_ITS ---
EXAMINATION: US RETROPERITONEAL LIMITED (RENAL ONLY) CLINICAL INFORMATION: Calculus of kidney. COMPARISON: Ultrasound retroperitoneal limited (renal only) 06/27/2021 and 12/20/2020. CT abdomen and pelvis with contrast 12/11/2020. TECHNIQUE: Real-time imaging of the kidneys. FINDINGS: RIGHT KIDNEY: 12.2 x 4.9 x 6.2 cm (SAG x AP x TRV). The kidney is normal in size, contour, and echogenicity. Renal cortical thickness is normal. There is a cyst in the lateral upper pole measuring 8 x 9 mm. There is mild fullness of the renal pelvis. This is similar to previous ultrasound. No renal calculi or hydronephrosis. LEFT KIDNEY: 10.9 x 5.5 x 5.8 cm (SAG x AP x TRV). The kidney is normal in size, contour, and echogenicity. There is mild cortical thinning in the upper pole. There is a 3 mm echogenic density with twinkle artifact in the upper pole questionable for a stone. No focal parenchymal lesions or hydronephrosis. US/US renal BI IMPRESSION: Small left renal stone. Small right renal cyst.
== END 2022-01-14 14:22 | disposition home or self-care (01) ==
LOC: HO.HMGCX 14:21
PROVIDERS: PCP Family Medicine
DX: N20.0 Calculus of kidney (principal)
CPT/HCPCS: 76775

== ENCOUNTER → 2022-01-17 11:32 | Outpatient (BNVA) | payer MEDICARE, MEDICAID, SELFPAY | PROVIDERS: PCP Family Medicine; Visit Provider Internal Medicine Gastroenterology | DX: R10.9 Unspecified abdominal pain (principal) | CPT/HCPCS: 99212 ==

== ENCOUNTER 2022-03-29 19:30 | Emergency (ER) | payer MEDICARE, MEDICAID, SELFPAY ==
[2022-03-29 19:58] VITALS: BP 106/64; PULSE 82; RESP 18; TEMP 36.2; O2SAT 96; BMI 30.4
--- NOTE | 2022-03-29 19:58 | ED.ABDPAIN ---
HPI - Abdominal Pain General Chief Complaint: Abdominal Pain Stated Complaint: Stomach pain Time Seen by Provider: 03/29/22 23:12 Related Data Home Medications Medication Instructions Recorded Confirmed atorvastatin 20 mg tablet 1 tab PO DAILY 04/17/20 12/11/20 bupropion HCl 150 mg 24 hr tablet, 1 tab PO QAM 04/17/20 12/11/20 extended release calcium carbonate 600 mg-vitamin 1 tab PO BID 04/17/20 12/11/20 D3 10 mcg (400 unit) tablet levocetirizine 5 mg tablet 1 tab PO BEDTIME 04/17/20 12/11/20 pregabalin 150 mg capsule 1 cap PO DAILY 04/17/20 12/11/20 sumatriptan succinate 100 mg tablet 100 mg PO DAILY MRX1 PRN Migraine 04/17/20 12/11/20 Headache blood sugar diagnostic #10 ea 09/28/20 12/03/20 lancets 28 gauge #100 ea 09/28/20 12/03/20 albuterol sulfate 90 mcg/actuation 2 puff inhalation Q4H PRN wheezing 10/09/20 12/11/20 aerosol inhaler buspirone 15 mg tablet 1 tab PO DAILY 11/07/20 12/11/20 galcanezumab-gnlm 120 mg/mL 120 mg subcut Q4W 11/07/20 12/11/20 subcutaneous pen injector (Emgality Pen) lisinopril 2.5 mg tablet 2.5 mg PO DAILY 11/07/20 12/11/20 zileuton 600 mg tablet,extended 2 tab PO BID 11/07/20 12/11/20 release 12hr mphase aspirin 81 mg tablet,delayed 81 mg PO DAILY 12/11/20 12/11/20 release budesonide 180 mcg/actuation 1 puff PO BID 12/11/20 12/11/20 breath activated powder inhaler (Pulmicort Flexhaler) ibjmhxjbcj-oeowsqx-lrxpapnz 50 1 cap PO Q6H PRN Headache 12/11/20 12/11/20 mg-325 mg-40 mg capsule cromolyn 4 % eye drops 1 drp ophthalmic (eye) QID 12/11/20 12/11/20 levalbuterol HCl 0.31 mg/3 mL 0.31 mg inhalation QID PRN 12/11/20 12/11/20 solution for nebulization Shortness Of Breath nystatin 100,000 unit/gram topical 1 appl topical BID 12/11/20 12/11/20 powder tiotropium bromide 2.5 2 puff inhalation DAILY 12/11/20 12/11/20 mcg/actuation mist for inhalation (Spiriva Respimat) tizanidine 4 mg tablet 1 tab PO Q8H 12/11/20 12/11/20 zolpidem 5 mg tablet 1 tab PO BEDTIME PRN Insomnia 12/11/20 12/11/20 zolpidem 10 mg tablet 10 mg PO BEDTIME PRN insomnia 01/04/21 bupropion HCl 300 mg 24 hr tablet, 300 mg PO DAILY 07/18/21 extended release lorazepam 0.5 mg tablet 0.5 mg PO BID PRN 07/18/21 promethazine 12.5 mg tablet mg PO 07/18/21 dulaglutide 0.75 mg/0.5 mL mg subcut 07/29/21 subcutaneous pen injector (Trulicity) ferrous gluconate 324 mg (38 mg 324 mg PO BID 07/29/21 iron) tablet sucralfate 100 mg/mL oral 5 ml PO QID 07/29/21 suspension (Carafate) empagliflozin 25 mg tablet 25 mg PO DAILY 01/17/22 (Jardiance) Previous Rx's Medication Instructions Recorded docusate sodium 100 mg capsule 100 mg PO BID constipation #60 caps 11/21/20 (Colace) oxycodone 5 mg tablet 5 mg PO TID PRN pain #14 tabs 12/14/20 omeprazole 40 mg capsule,delayed 40 mg PO BID #90 caps 01/17/22 release pyridoxine (vitamin B6) 50 mg 50 mg PO DAILY #90 caps 02/11/22 capsule dicyclomine 10 mg capsule 10 mg PO Q6-8H PRN for cramps #120 03/03/22 caps methylnaltrexone 150 mg tablet 450 mg PO DAILY #90 tabs 03/03/22 (Relistor) ondansetron 8 mg disintegrating 8 mg PO Q8H #90 tabs 03/26/22 tablet Allergies Allergy/AdvReac Type Severity Reaction Status Date / Time Penicillins [PENICILLINS] Allergy Severe RASH Verified 03/29/22 20:01 acetaminophen [From Tylenol] Allergy Mild Unknown Verified 03/29/22 20:01 gabapentin [GABAPENTIN] Allergy Mild ABD PAIN Verified 03/29/22 20:01 esomeprazole [Nexium] Allergy Unknown rash Verified 03/29/22 20:01 famotidine [From PEPCID] Allergy Unknown UPSET Verified 03/29/22 20:01 STOMACH lansoprazole [Prevacid] Allergy Unknown rash Verified 03/29/22 20:01 penicillin V Allergy Unknown stomach Verified 03/29/22 20:01 pains tramadol Allergy Hives Verified 03/29/22 20:01 morphine AdvReac Headache Verified 03/29/22 20:01 From NEXIUM Allergy Unknown RASH Uncoded 01/17/22 11:38 PMFSH Past Medical History Medical History Abdominal pain Asthma Chronic back pain Depression Diabetes 1.5, managed as type 2 Diverticulitis Diverticulitis History of diverticulitis HTN (hypertension) Migraines SIRS (systemic inflammatory response syndrome) UTI (urinary tract infection) Surgical History History of cholecystectomy History of esophagogastroduodenoscopy (EGD) History of hysterectomy History of partial colectomy Hx of colonoscopy Social History Social History Household Members: Spouse Housing: Apartment Do you presently have visiting nurse or other home services: No Alcohol intake: never Patient Tobacco Use Status: Never used Tobacco Smoked in Last 30 Days: Yes Second Hand Smoke Exposure: Yes Use of substances other than those prescribed or required for medical reasons: No Advance Directives: Yes Advance Directives on File: Yes Advance Directives Date on File: 10/01/20 Patient : No service: No Current occupational status: disabled Physical Exam ED Vital Signs: Vital Signs - 24 hr 03/29/22 19:58 03/29/22 23:14 Temperature 97.2 F 98.5 F Pulse Rate 82 58 Respiratory Rate 18 20 Blood Pressure 106/64 116/57 L Pulse Oximetry 96 97 Oxygen Delivery Method Room Air Room Air BMI result Body Mass Index 30.4 Course Course Course Narrative: This is a rapid medial exam. Deferred additional HPI, ROS, PE to primary provider. 61 female with history of diabetes here upper abdominal pain intermittent x months worsened since thursday, nausea. No vomiting, diarrhea, fevers, urinary symptoms. Will check labs, UA. VSS. MDM - Abdominal Pain Lab Data Result diagrams: 03/29/22 20:07 03/29/22 20:07 Labs: Lab Results 03/29/22 03/29/22 03/30/22 Range/Units 20:07 20:07 00:05 WBC 14.5 H (4.8-10.8) X10*3/uL RBC 4.93 (4.20-5.50) X10*6/uL Hgb 14.5 (12.0-16.0) g/dl Hct 43.6 (37.0-47.0) % MCV 88.4 (80.0-98.0) fL MCH 29.4 (27.0-33.0) pg MCHC 33.3 (31.0-35.0) g/dl RDW 13.7 (11.0-16.0) % Plt Count 335 (160-400) X10*3/uL MPV 10.5 (9.4-12.3) fL Immature Gran % (Auto) 0.5 H (0.0-0.4) % Neut % (Auto) 68.7 (45-73) % Lymph % (Auto) 23.4 (20-40) % [place] % (Auto) 5.9 (2-11) % Eos % (Auto) 1.0 (0-4) % Baso % (Auto) 0.5 (0-2) % Lymph # (Auto) 3.4 (1.2-4.9) X10*3/uL [place] # (Auto) 0.9 (0.1-1.2) X10*3/uL Eos # (Auto) 0.2 (0.0-0.4) X10*3/uL Baso # (Auto) 0.1 (0.0-0.2) X10*3/uL Abs Immat Gran (auto) 0.07 H (0.00-0.03) X10*3/uL Absolute Neuts (auto) 10.0 H (2.0-8.3) x10*3/uL Absolute Nucleated RBC 0.000 (0.0-0.012) X10*3/uL Nucleated RBC % (auto) 0.0 (0.0-0.2) /100WBC Sodium 135 (135-145) mmol/L Potassium 3.9 (3.3-5.1) mmol/L Chloride 102 (96-108) mmol/L Carbon Dioxide 24 (22-29) mmol/L Anion Gap 13 (12-20) BUN 15 (9-16) mg/dL Creatinine 1.11 (0.5-1.4) mg/dL Estim Creat Clear Calc 53.3 Estimated GFR 50 Random Glucose 94 (60-115) mg/dL Calcium 9.9 D (8.4-10.2) mg/dL Total Bilirubin 0.4 (0.0-1.0) mg/dL Direct Bilirubin 0.2 (0.0-0.5) mg/dL AST 15 (5-31) U/L ALT 14 (0-31) U/L Alkaline Phosphatase 117 (39-117) U/L Total Protein 7.9 (6.5-8.0) g/dL Albumin 4.5 (3.5-5.0) g/dL Lipase 16 (8-78) U/L Urine Color Yellow Urine Appearance Clear Urine pH 6.5 (5.0-9.0) Ur Specific [place] 1.015 (1.005-1.025) Urine Protein Negative (Neg-Trace) mg/dL Urine Glucose (UA) >=1000 H (Negative) mg/dL Urine Ketones Negative (Negative) mg/dL Urine Blood Negative (Negative) Urine Nitrite Negative (Negative) Ur Leukocyte Esterase Negative (Negative) Urine RBC 0-2 (0-2) /HPF Urine WBC 0-5 (0-5) /HPF Ur Squamous Epith Cells 0-2 (0-2) /HPF Urine Bacteria None Seen (None Seen) Hyaline Casts 0-2 (0-2) /LPF Discharge Plan Discharge Clinical Impression: Gastritis Patient Disposition: Home, Self-Care Instructions: Gastritis (ED) Prescriptions: No Action pyridoxine (vitamin B6) 50 mg capsule 50 mg PO DAILY Qty: 90 1RF dicyclomine 10 mg capsule 10 mg PO Q6-8H PRN (Reason: for cramps) Qty: 120 1RF Relistor 150 mg tablet 450 mg PO DAILY Qty: 90 1RF ondansetron 8 mg tablet,disintegrating 8 mg PO Q8H Qty: 90 2RF zileuton 600 mg tablet, ER multiphase 12 hr 2 tab PO BID Emgality Pen 120 mg/mL Pen Injector 120 mg SUBCUT Q4W lisinopril 2.5 mg Tablet 2.5 mg PO DAILY buspirone 15 mg tablet 1 tab PO DAILY atorvastatin 20 mg tablet 1 tab PO DAILY pregabalin 150 mg capsule 1 cap PO DAILY sumatriptan succinate 100 mg tablet 100 mg PO DAILY MRX1 PRN (Reason: Migraine Headache) Rx Instructions: max 200mg bupropion HCl 150 mg tablet extended release 24 hr 1 tab PO QAM calcium carbonate-vitamin D3 600 mg(1,500mg) -400 unit tablet 1 tab PO BID levocetirizine 5 mg tablet 1 tab PO BEDTIME docusate sodium [Colace] 100 mg capsule 100 mg PO BID Qty: 60 0RF tizanidine 4 mg tablet 1 tab PO Q8H cromolyn 4 % drops 1 drp ophthalmic (eye) QID zyjsrbkwxc-saduluq-yjdmvrpw 50-325-40 mg capsule 1 cap PO Q6H PRN (Reason: Headache) zolpidem 5 mg tablet 1 tab PO BEDTIME PRN (Reason: Insomnia) nystatin 100,000 unit/gram powder 1 appl topical BID levalbuterol HCl 0.31 mg/3 mL solution for nebulization 0.31 mg inhalation QID PRN (Reason: Shortness Of Breath) Pulmicort Flexhaler 180 mcg/actuation aerosol powdr breath activated 1 puff PO BID Spiriva Respimat 2.5 mcg/actuation mist 2 puff inhalation DAILY aspirin 81 mg Tablet,Delayed Release (Dr/Ec) 81 mg PO DAILY oxycodone 5 mg tablet 5 mg PO TID PRN (Reason: pain) Qty: 14 0RF zolpidem 10 mg tablet 10 mg PO BEDTIME PRN (Reason: insomnia) promethazine 12.5 mg tablet PO bupropion HCl 300 mg tablet extended release 24 hr 300 mg PO DAILY lorazepam 0.5 mg tablet 0.5 mg PO BID PRN Trulicity 0.75 mg/0.5 mL pen injector subcut sucralfate [Carafate] 100 mg/mL suspension 5 ml PO QID Rx Instructions: swish in mouth and swallow; use after food/drink ferrous gluconate 324 mg (38 mg iron) tablet 324 mg PO BID (DME) blood sugar diagnostic Strip See Rx Instructions Not Applicable TID Qty: 10 Rx Instructions: As directed (DME) lancets 28 gauge misc See Rx Instructions topical TID Qty: 100 Rx Instructions: As directed albuterol sulfate 90 mcg/actuation HFA aerosol inhaler 2 puff inhalation Q4H PRN (Reason: wheezing) Jardiance 25 mg tablet 25 mg PO DAILY omeprazole 40 mg capsule,delayed release(DR/EC) 40 mg PO BID Qty: 90 2RF Referrals: Cooper Adam MD [Primary Care Provider] - 03/31/22 Interventions: ED Discharge Assessment Last Done: 03/30/22 01:00 Discharge Date/Time: 03/30/22 01:01
[2022-03-29 20:14] LABS: MANUAL DIFF FLAG NO
[2022-03-29 20:27] LABS: Basophils Absolute Auto 0.1 X10*3/uL (0.0-0.2); Basophils Percent Auto 0.5 % (0-2); Eosinophils Absolute Auto 0.2 X10*3/uL (0.0-0.4); Hematocrit 43.6 % (37.0-47.0); Hemoglobin 14.5 g/dl (12.0-16.0); Imm Gran Abs Auto 0.07 X10*3/uL (0.00-0.03); Imm Gran Pct Auto 0.5 % (0.0-0.4); Lymphocytes Absolute Auto 3.4 X10*3/uL (1.2-4.9); Lymphocytes Percent Auto 23.4 % (20-40); Mean Corpuscular HGB Conc 33.3 g/dl (31.0-35.0); Mean Corpuscular Hemoglobin 29.4 pg (27.0-33.0); Mean Corpuscular Volume 88.4 fL (80.0-98.0); Mean Platelet Volume 10.5 fL (9.4-12.3); Monocytes Absolute Auto 0.9 X10*3/uL (0.1-1.2); Monocytes Percent Auto 5.9 % (2-11); Neutrophils Percent Auto 68.7 % (45-73); Platelet Count 335 X10*3/uL (160-400); Red Blood Count 4.93 X10*6/uL (4.20-5.50); Red Cell Distribution Width 13.7 % (11.0-16.0); White Blood Count 14.5 X10*3/uL (4.8-10.8)
[2022-03-29 20:37] LABS: Alanine Aminotransferase 14 U/L (0-31); Albumin Level 4.5 g/dL (3.5-5.0); Alkaline Phosphatase 117 U/L (39-117); Anion Gap 13 (12-20); Aspartate Amino Transferase 15 U/L (5-31); Bilirubin Direct 0.2 mg/dL (0.0-0.5); Bilirubin Total 0.4 mg/dL (0.0-1.0); Blood Urea Nitrogen 15 mg/dL (9-16); Calcium 9.9 mg/dL (8.4-10.2); Carbon Dioxide 24 mmol/L (22-29); Chloride 102 mmol/L (96-108); Creatinine Clr Calc Pharmacy 53.3; Estimated Glomerular Filt Rate 50; Glucose Random 94 mg/dL (60-115); Lipase 16 U/L (8-78); Potassium 3.9 mmol/L (3.3-5.1); Sodium 135 mmol/L (135-145); Total Protein 7.9 g/dL (6.5-8.0)
[2022-03-29 23:14] VITALS: BP 116/57; PULSE 58; RESP 20; TEMP 36.9; O2SAT 97
--- NOTE | 2022-03-29 23:46 | ECG_ITS ---
Test Reason : ABDOMINAL PAIN Blood Pressure : / mmHG Vent. Rate : 058 BPM Atrial Rate : 058 BPM P-R Int : 162 ms QRS Dur : 080 ms QT Int : 448 ms P-R-T Axes : 030 030 021 degrees QTc Int : 439 ms Sinus bradycardia Otherwise normal ECG When compared with ECG of 17-NOV-2020 16:36, No significant change was found Referred By: Radha Toussaint Electronically Signed By:Galo Zhu
--- NOTE | 2022-03-29 23:49 | ED.ABDPAIN ---
HPI - Abdominal Pain General Chief Complaint: Abdominal Pain Stated Complaint: Stomach pain Time Seen by Provider: 03/29/22 23:12 History of Present Illness HPI narrative: patient is a 61-year-old female with a history of diabetes history of reflux presents today with having epigastric pain. Not associated with any chest pain or shortness of breath no diaphoresis. Patient is from home. History of allergies to Pepcid and to Nexium. Patient is currently on sucralfate. Patient had an abdominal CT done approximately [address] scan did not show any acute evidence of obstruction, abscess, perforation. She had had multiple surgeries in the past including hysterectomy and appendectomy. Status post cholecystectomy. Patient states the abdominal pain is been ongoing for weeks. No diaphoresis. Not associated with ambulation. Pain is constant all day. Related Data Home Medications Medication Instructions Recorded Confirmed atorvastatin 20 mg tablet 1 tab PO DAILY 04/17/20 12/11/20 bupropion HCl 150 mg 24 hr tablet, 1 tab PO QAM 04/17/20 12/11/20 extended release calcium carbonate 600 mg-vitamin 1 tab PO BID 04/17/20 12/11/20 D3 10 mcg (400 unit) tablet levocetirizine 5 mg tablet 1 tab PO BEDTIME 04/17/20 12/11/20 pregabalin 150 mg capsule 1 cap PO DAILY 04/17/20 12/11/20 sumatriptan succinate 100 mg tablet 100 mg PO DAILY MRX1 PRN Migraine 04/17/20 12/11/20 Headache blood sugar diagnostic #10 ea 09/28/20 12/03/20 lancets 28 gauge #100 ea 09/28/20 12/03/20 albuterol sulfate 90 mcg/actuation 2 puff inhalation Q4H PRN wheezing 10/09/20 12/11/20 aerosol inhaler buspirone 15 mg tablet 1 tab PO DAILY 11/07/20 12/11/20 galcanezumab-gnlm 120 mg/mL 120 mg subcut Q4W 11/07/20 12/11/20 subcutaneous pen injector (Emgality Pen) lisinopril 2.5 mg tablet 2.5 mg PO DAILY 11/07/20 12/11/20 zileuton 600 mg tablet,extended 2 tab PO BID 11/07/20 12/11/20 release 12hr mphase aspirin 81 mg tablet,delayed 81 mg PO DAILY 12/11/20 12/11/20 release budesonide 180 mcg/actuation 1 puff PO BID 12/11/20 12/11/20 breath activated powder inhaler (Pulmicort Flexhaler) cpftxexqnj-tynajsn-vpbcmniz 50 1 cap PO Q6H PRN Headache 12/11/20 12/11/20 mg-325 mg-40 mg capsule cromolyn 4 % eye drops 1 drp ophthalmic (eye) QID 12/11/20 12/11/20 levalbuterol HCl 0.31 mg/3 mL 0.31 mg inhalation QID PRN 12/11/20 12/11/20 solution for nebulization Shortness Of Breath nystatin 100,000 unit/gram topical 1 appl topical BID 12/11/20 12/11/20 powder tiotropium bromide 2.5 2 puff inhalation DAILY 12/11/20 12/11/20 mcg/actuation mist for inhalation (Spiriva Respimat) tizanidine 4 mg tablet 1 tab PO Q8H 12/11/20 12/11/20 zolpidem 5 mg tablet 1 tab PO BEDTIME PRN Insomnia 12/11/20 12/11/20 zolpidem 10 mg tablet 10 mg PO BEDTIME PRN insomnia 01/04/21 bupropion HCl 300 mg 24 hr tablet, 300 mg PO DAILY 07/18/21 extended release lorazepam 0.5 mg tablet 0.5 mg PO BID PRN 07/18/21 promethazine 12.5 mg tablet mg PO 07/18/21 dulaglutide 0.75 mg/0.5 mL mg subcut 07/29/21 subcutaneous pen injector (Trulicity) ferrous gluconate 324 mg (38 mg 324 mg PO BID 07/29/21 iron) tablet sucralfate 100 mg/mL oral 5 ml PO QID 07/29/21 suspension (Carafate) empagliflozin 25 mg tablet 25 mg PO DAILY 01/17/22 (Jardiance) Previous Rx's Medication Instructions Recorded docusate sodium 100 mg capsule 100 mg PO BID constipation #60 caps 11/21/20 (Colace) oxycodone 5 mg tablet 5 mg PO TID PRN pain #14 tabs 12/14/20 omeprazole 40 mg capsule,delayed 40 mg PO BID #90 caps 01/17/22 release pyridoxine (vitamin B6) 50 mg 50 mg PO DAILY #90 caps 02/11/22 capsule dicyclomine 10 mg capsule 10 mg PO Q6-8H PRN for cramps #120 03/03/22 caps methylnaltrexone 150 mg tablet 450 mg PO DAILY #90 tabs 03/03/22 (Relistor) ondansetron 8 mg disintegrating 8 mg PO Q8H #90 tabs 03/26/22 tablet Allergies Allergy/AdvReac Type Severity Reaction Status Date / Time Penicillins [PENICILLINS] Allergy Severe RASH Verified 03/29/22 20:01 acetaminophen [From Tylenol] Allergy Mild Unknown Verified 03/29/22 20:01 gabapentin [GABAPENTIN] Allergy Mild ABD PAIN Verified 03/29/22 20:01 esomeprazole [Nexium] Allergy Unknown rash Verified 03/29/22 20:01 famotidine [From PEPCID] Allergy Unknown UPSET Verified 03/29/22 20:01 STOMACH lansoprazole [Prevacid] Allergy Unknown rash Verified 03/29/22 20:01 penicillin V Allergy Unknown stomach Verified 03/29/22 20:01 pains tramadol Allergy Hives Verified 03/29/22 20:01 morphine AdvReac Headache Verified 03/29/22 20:01 From NEXIUM Allergy Unknown RASH Uncoded 01/17/22 11:38 Review of Systems Review of Systems Positive epigastric pain Yes all other systems are reviewed and are negative PMFSH Past Medical History Attestation statement: The following information was validated with the patient. Medical History Abdominal pain Asthma Chronic back pain Depression Diabetes 1.5, managed as type 2 Diverticulitis Diverticulitis History of diverticulitis HTN (hypertension) Migraines SIRS (systemic inflammatory response syndrome) UTI (urinary tract infection) Surgical History History of cholecystectomy History of esophagogastroduodenoscopy (EGD) History of hysterectomy History of partial colectomy Hx of colonoscopy Social History Social History Household Members: Spouse Housing: Apartment Do you presently have visiting nurse or other home services: No Alcohol intake: never Patient Tobacco Use Status: Never used Tobacco Smoked in Last 30 Days: Yes Second Hand Smoke Exposure: Yes Use of substances other than those prescribed or required for medical reasons: No Advance Directives: Yes Advance Directives on File: Yes Advance Directives Date on File: 10/01/20 Patient : No service: No Current occupational status: disabled Physical Exam ED Vital Signs: Vital Signs - 24 hr 03/29/22 19:58 03/29/22 23:14 Temperature 97.2 F 98.5 F Pulse Rate 82 58 Respiratory Rate 18 20 Blood Pressure 106/64 116/57 L Pulse Oximetry 96 97 Oxygen Delivery Method Room Air Room Air BMI result Body Mass Index 30.4 Appearance: Alert. Oriented X3. No acute distress. Eyes: Pupils equal, round and reactive to light. ENT: Pharynx normal. Neck: Normal inspection. Neck supple. No lymph nodes noted. No crepitus CVS: Normal heart rate and rhythm. Pulses normal. Normal S1 and S2 Respiratory: No respiratory distress. Breath sounds normal. No Wheezing. No rales Abdomen: Soft and nontender. No rigidity. No distention. good BS x4 Skin: Skin warm and dry. Normal skin color. Normal skin turgor. Extremities: No lower extremity edema. Neurovascular intact to all extremities. No Lacerations. No Rash Neuro: Oriented X 3. No motor deficit. No sensory deficit. Moving all extermities. No slurred speech MDM - Abdominal Pain MDM Narrative Medical decision making narrative: Patient's white count slightly elevated but however she had a history of the same in the past. LFTs are normal. Lipase is normal. No evidence for biliary disease. Patient been having this pain for few weeks. CT scan within the last week showed no evidence of obstruction, abscess, perforation. Patient states that she needs a follow-up ultrasound for something in her pelvis only. She is moving her bowels. She is not vomiting. Urine is pending. She is well appearing. Will get an EKG. If that is normal unchanged will discharge patient home follow up on an outpatient basis. She is in stable condition Patient's EKG showed a sinus pattern heart rate was 70 [place] cares QT within normal limits there is no acute ST segment elevation. Patient's urine was grossly negative. No evidence for UTI. Question gastritis. Already had a CT scan of the abdomen done. Patient has allergies to proton pump inhibitors and H2 blockers. Will ask patient to use Maalox. Close follow-up on an outpatient basis. In stable condition with discharge home. Differential Diagnosis Differential diagnosis narrative:: Patient's white count Medical Records Attestation: I reviewed the patient's medical records. Lab Data Attestation: I reviewed the patient's lab results. Result diagrams: 03/29/22 20:07 03/29/22 20:07 Labs: Lab Results 03/29/22 03/29/22 03/30/22 Range/Units 20:07 20:07 00:05 WBC 14.5 H (4.8-10.8) X10*3/uL RBC 4.93 (4.20-5.50) X10*6/uL Hgb 14.5 (12.0-16.0) g/dl Hct 43.6 (37.0-47.0) % MCV 88.4 (80.0-98.0) fL MCH 29.4 (27.0-33.0) pg MCHC 33.3 (31.0-35.0) g/dl RDW 13.7 (11.0-16.0) % Plt Count 335 (160-400) X10*3/uL MPV 10.5 (9.4-12.3) fL Immature Gran % (Auto) 0.5 H (0.0-0.4) % Neut % (Auto) 68.7 (45-73) % Lymph % (Auto) 23.4 (20-40) % [place] % (Auto) 5.9 (2-11) % Eos % (Auto) 1.0 (0-4) % Baso % (Auto) 0.5 (0-2) % Lymph # (Auto) 3.4 (1.2-4.9) X10*3/uL [place] # (Auto) 0.9 (0.1-1.2) X10*3/uL Eos # (Auto) 0.2 (0.0-0.4) X10*3/uL Baso # (Auto) 0.1 (0.0-0.2) X10*3/uL Abs Immat Gran (auto) 0.07 H (0.00-0.03) X10*3/uL Absolute Neuts (auto) 10.0 H (2.0-8.3) x10*3/uL Absolute Nucleated RBC 0.000 (0.0-0.012) X10*3/uL Nucleated RBC % (auto) 0.0 (0.0-0.2) /100WBC Sodium 135 (135-145) mmol/L Potassium 3.9 (3.3-5.1) mmol/L Chloride 102 (96-108) mmol/L Carbon Dioxide 24 (22-29) mmol/L Anion Gap 13 (12-20) BUN 15 (9-16) mg/dL Creatinine 1.11 (0.5-1.4) mg/dL Estim Creat Clear Calc 53.3 Estimated GFR 50 Random Glucose 94 (60-115) mg/dL Calcium 9.9 D (8.4-10.2) mg/dL Total Bilirubin 0.4 (0.0-1.0) mg/dL Direct Bilirubin 0.2 (0.0-0.5) mg/dL AST 15 (5-31) U/L ALT 14 (0-31) U/L Alkaline Phosphatase 117 (39-117) U/L Total Protein 7.9 (6.5-8.0) g/dL Albumin 4.5 (3.5-5.0) g/dL Lipase 16 (8-78) U/L Urine Color Yellow Urine Appearance Clear Urine pH 6.5 (5.0-9.0) Ur Specific [place] 1.015 (1.005-1.025) Urine Protein Negative (Neg-Trace) mg/dL Urine Glucose (UA) >=1000 H (Negative) mg/dL Urine Ketones Negative (Negative) mg/dL Urine Blood Negative (Negative) Urine Nitrite Negative (Negative) Ur Leukocyte Esterase Negative (Negative) Urine RBC 0-2 (0-2) /HPF Urine WBC 0-5 (0-5) /HPF Ur Squamous Epith Cells 0-2 (0-2) /HPF Urine Bacteria None Seen (None Seen) Hyaline Casts 0-2 (0-2) /LPF Discharge Plan Discharge Clinical Impression: Gastritis Patient Disposition: Home, Self-Care Instructions: Gastritis (ED) Prescriptions: No Action pyridoxine (vitamin B6) 50 mg capsule 50 mg PO DAILY Qty: 90 1RF dicyclomine 10 mg capsule 10 mg PO Q6-8H PRN (Reason: for cramps) Qty: 120 1RF Relistor 150 mg tablet 450 mg PO DAILY Qty: 90 1RF ondansetron 8 mg tablet,disintegrating 8 mg PO Q8H Qty: 90 2RF zileuton 600 mg tablet, ER multiphase 12 hr 2 tab PO BID Emgality Pen 120 mg/mL Pen Injector 120 mg SUBCUT Q4W lisinopril 2.5 mg Tablet 2.5 mg PO DAILY buspirone 15 mg tablet 1 tab PO DAILY atorvastatin 20 mg tablet 1 tab PO DAILY pregabalin 150 mg capsule 1 cap PO DAILY sumatriptan succinate 100 mg tablet 100 mg PO DAILY MRX1 PRN (Reason: Migraine Headache) Rx Instructions: max 200mg bupropion HCl 150 mg tablet extended release 24 hr 1 tab PO QAM calcium carbonate-vitamin D3 600 mg(1,500mg) -400 unit tablet 1 tab PO BID levocetirizine 5 mg tablet 1 tab PO BEDTIME docusate sodium [Colace] 100 mg capsule 100 mg PO BID Qty: 60 0RF tizanidine 4 mg tablet 1 tab PO Q8H cromolyn 4 % drops 1 drp ophthalmic (eye) QID utuogrhswx-dlbszpl-vpjsvsgq 50-325-40 mg capsule 1 cap PO Q6H PRN (Reason: Headache) zolpidem 5 mg tablet 1 tab PO BEDTIME PRN (Reason: Insomnia) nystatin 100,000 unit/gram powder 1 appl topical BID levalbuterol HCl 0.31 mg/3 mL solution for nebulization 0.31 mg inhalation QID PRN (Reason: Shortness Of Breath) Pulmicort Flexhaler 180 mcg/actuation aerosol powdr breath activated 1 puff PO BID Spiriva Respimat 2.5 mcg/actuation mist 2 puff inhalation DAILY aspirin 81 mg Tablet,Delayed Release (Dr/Ec) 81 mg PO DAILY oxycodone 5 mg tablet 5 mg PO TID PRN (Reason: pain) Qty: 14 0RF zolpidem 10 mg tablet 10 mg PO BEDTIME PRN (Reason: insomnia) promethazine 12.5 mg tablet PO bupropion HCl 300 mg tablet extended release 24 hr 300 mg PO DAILY lorazepam 0.5 mg tablet 0.5 mg PO BID PRN Trulicity 0.75 mg/0.5 mL pen injector subcut sucralfate [Carafate] 100 mg/mL suspension 5 ml PO QID Rx Instructions: swish in mouth and swallow; use after food/drink ferrous gluconate 324 mg (38 mg iron) tablet 324 mg PO BID (DME) blood sugar diagnostic Strip See Rx Instructions Not Applicable TID Qty: 10 Rx Instructions: As directed (DME) lancets 28 gauge misc See Rx Instructions topical TID Qty: 100 Rx Instructions: As directed albuterol sulfate 90 mcg/actuation HFA aerosol inhaler 2 puff inhalation Q4H PRN (Reason: wheezing) Jardiance 25 mg tablet 25 mg PO DAILY omeprazole 40 mg capsule,delayed release(DR/EC) 40 mg PO BID Qty: 90 2RF Referrals: Cooper Adam MD [Primary Care Provider] - 03/31/22
[2022-03-30 00:11] LABS: Appearance Urine Clear; Color Urine Yellow; Glucose Urine UA >=1000 mg/dL (Negative); Leukocyte Esterase Urine Negative (Negative); Nitrite Urine Negative (Negative); PH 6.5 (5.0-9.0); Specific Gravity - Urine 1.015 (1.005-1.025); UMIC TRIGGER UACC YES; Urine Blood Negative (Negative); Urine Ketones Negative (Negative); Urine Protein Negative (Neg-Trace)
[2022-03-30 00:16] LABS: Bacteria Urine None Seen (None Seen); Hyaline Casts Urine 0-2 /LPF (0-2); RBC Urine 0-2 /HPF (0-2); Squamous Epithelial Cell Urine 0-2 /HPF (0-2); WBC Urine 0-5 /HPF (0-5)
== END 2022-03-30 01:01 | disposition home or self-care (01) ==
PROVIDERS: Nurse Practitioner Family; Emergency Provider Emergency Medicine Emergency Medical Services; PCP Family Medicine
DX: K29.70 Gastritis, unspecified, without bleeding (principal); E13.9 Other specified diabetes mellitus without complications; I10 Essential (primary) hypertension; Z79.899 Other long term (current) drug therapy; Z79.02 Long term (current) use of antithrombotics/antiplatelets
CPT/HCPCS: 36415; 80048; 80076; 81001; 83690; 85025; 93005; 99283; 99285

== ENCOUNTER → 2022-07-11 11:30 | Outpatient (BNVA) | payer MEDICARE, MEDICAID, SELFPAY | PROVIDERS: PCP Family Medicine; Visit Provider Internal Medicine Gastroenterology | DX: F11.188 Opioid abuse with other opioid-induced disorder (principal); K92.89 Other specified diseases of the digestive system | CPT/HCPCS: 99212 ==

== ENCOUNTER → 2022-08-04 12:39 | Outpatient (BNVA) | payer MEDICARE, MEDICAID, SELFPAY | PROVIDERS: PCP Family Medicine; Referring Provider Internal Medicine Gastroenterology; Visit Provider Surgery | DX: K43.2 Incisional hernia without obstruction or gangrene (principal) | CPT/HCPCS: 99212 ==

== ENCOUNTER 2022-08-22 10:00 | Outpatient (REF) | payer MEDICARE, MEDICAID, SELFPAY ==
--- NOTE | ~2022-08-22 | CT_ITS ---
EXAMINATION: CT ABDOMEN AND PELVIS WITHOUT CONTRAST CLINICAL INFORMATION: Incisional hernia COMPARISON: 11/17/2020 TECHNIQUE: Multidetector volumetric imaging was performed from the superior aspect of the liver through the pubic symphysis. Sagittal and coronal reformatted images were obtained on the technologist's workstation. This CT examination was performed using dose optimization techniques as appropriate, variously including the following: *Automated exposure control *Adjustment of mA and/or kV according to patient size (this includes techniques or standardized protocols for targeted exams where dose is matched to indication/reason for exam; i.e. extremities or head) *Use of iterative reconstruction technique DLP: 445 mGy-cm FINDINGS: LUNG BASES: The visualized lung bases are unremarkable. LIVER, GALLBLADDER, AND BILIARY TREE: The liver is normal in size, shape, and attenuation. No focal hepatic lesion or biliary ductal dilatation is identified. Patient appears to be status post cholecystectomy. PANCREAS: Unremarkable. SPLEEN: Unremarkable. ADRENAL GLANDS: Unremarkable. KIDNEYS AND URETERS: The kidneys are normal in size, shape, and attenuation. No hydronephrosis, hydroureter, or calculi seen. No perinephric stranding. BLADDER: Unremarkable. GASTROINTESTINAL TRACT: There is a small bowel suture line in the right abdomen. Suture line also noted in the rectosigmoid region. Mild sigmoid colon diverticulosis. No evidence of bowel obstruction or significant wall thickening. Moderate amount of stool is present. There is hyperdense material in the appendix which appears nondilated. ABDOMINAL WALL: There is an infraumbilical ventral hernia containing fat and loops of nondilated small bowel. Fat-containing periumbilical hernias are also present. There is also is a right-sided spigelian hernia containing a short segment of nondilated small bowel. These hernias appear similar to 11/17/2020. LYMPH NODES: Normal. VASCULAR: Unremarkable. PELVIC VISCERA: Patient is status post hysterectomy. Pelvic floor laxity is suspected. OSSEOUS STRUCTURES: Unremarkable. CT/CT abdomen pelvis wo IV con IMPRESSION: Multiple abdominal hernias as described above, without significant change since 11/17/2020. No new acute findings identified.
== END 2022-08-22 10:01 | disposition home or self-care (01) ==
LOC: HO.CT 10:00
PROVIDERS: PCP Family Medicine; Visit Provider Surgery
DX: K43.2 Incisional hernia without obstruction or gangrene (principal)
CPT/HCPCS: 74176

== ENCOUNTER 2022-08-26 02:34 | Emergency (ER) | payer MEDICARE, MEDICAID, SELFPAY ==
[2022-08-26 02:44] VITALS: BP 101/50; BP 109/59; PULSE 72; PULSE 73; RESP 18; TEMP 36.9; O2SAT 93; O2SAT 98; BMI 31.1
--- NOTE | 2022-08-26 03:51 | ED.ABDPAIN ---
HPI - Abdominal Pain General Chief Complaint: Abdominal Pain Stated Complaint: quadrant pain Time Seen by Provider: 08/26/22 03:50 Source: patient Mode of arrival: ambulatory Limitations: no limitations History of Present Illness HPI narrative: Patient with chronic abdominal pain for months secondary to ventral hernia was seen by surgeon and CT scan was done on 08/23 which was negative for obstruction or any acute pathology comes here as she been having pain for last 4 days with nausea patient took oxycodone prior to arrival Related Data Home Medications Medication Instructions Recorded Confirmed atorvastatin 20 mg tablet 1 tab PO DAILY 04/17/20 08/04/22 calcium carbonate 600 mg-vitamin 1 tab PO BID 04/17/20 08/04/22 D3 10 mcg (400 unit) tablet levocetirizine 5 mg tablet 1 tab PO BEDTIME 04/17/20 08/04/22 sumatriptan succinate 100 mg tablet 100 mg PO DAILY MRX1 PRN Migraine 04/17/20 08/04/22 Headache blood sugar diagnostic #10 ea 09/28/20 08/04/22 lancets 28 gauge #100 ea 09/28/20 08/04/22 albuterol sulfate 90 mcg/actuation 2 puff inhalation Q4H PRN wheezing 10/09/20 08/04/22 aerosol inhaler lisinopril 2.5 mg tablet 2.5 mg PO DAILY 11/07/20 08/04/22 zileuton 600 mg tablet,extended 2 tab PO BID 11/07/20 08/04/22 release 12hr mphase aspirin 81 mg tablet,delayed 81 mg PO DAILY 12/11/20 08/04/22 release budesonide 180 mcg/actuation 1 puff PO BID 12/11/20 08/04/22 breath activated powder inhaler (Pulmicort Flexhaler) alkglawxvr-alzkpyi-lejakaez 50 1 cap PO Q6H PRN Headache 12/11/20 08/04/22 mg-325 mg-40 mg capsule cromolyn 4 % eye drops 1 drp ophthalmic (eye) QID 12/11/20 08/04/22 levalbuterol HCl 0.31 mg/3 mL 0.31 mg inhalation QID PRN 12/11/20 08/04/22 solution for nebulization Shortness Of Breath nystatin 100,000 unit/gram topical 1 appl topical BID 12/11/20 08/04/22 powder tiotropium bromide 2.5 2 puff inhalation DAILY 12/11/20 08/04/22 mcg/actuation mist for inhalation (Spiriva Respimat) tizanidine 4 mg tablet 1 tab PO Q8H 12/11/20 08/04/22 zolpidem 10 mg tablet 10 mg PO BEDTIME PRN insomnia 01/04/21 08/04/22 bupropion HCl 300 mg 24 hr tablet, 300 mg PO DAILY 07/18/21 08/04/22 extended release lorazepam 0.5 mg tablet 0.5 mg PO BID PRN 07/18/21 08/04/22 dulaglutide 0.75 mg/0.5 mL mg subcut 07/29/21 08/04/22 subcutaneous pen injector (Trulicity) ferrous gluconate 324 mg (38 mg 324 mg PO BID 07/29/21 08/04/22 iron) tablet sucralfate 100 mg/mL oral 5 ml PO QID 07/29/21 08/04/22 suspension (Carafate) empagliflozin 25 mg tablet 25 mg PO DAILY 01/17/22 08/04/22 (Jardiance) dupilumab 300 mg/2 mL subcutaneous mg subcut 07/11/22 08/04/22 pen injector (Dupixent) zafirlukast 20 mg tablet 20 mg PO BID 07/11/22 08/04/22 estradiol 0.025 mg/24 hr weekly 1 patch transdermal QWEEK 08/04/22 08/04/22 transdermal patch fluticasone furoate 200 1 ea inhalation DAILY 08/04/22 08/04/22 mcg-vilanterol 25 mcg/dose inhalation powder (Breo Ellipta) Previous Rx's Medication Instructions Recorded docusate sodium 100 mg capsule 100 mg PO BID constipation #60 caps 11/21/20 (Colace) oxycodone 5 mg tablet 5 mg PO TID PRN pain #14 tabs 12/14/20 omeprazole 40 mg capsule,delayed 40 mg PO BID #90 caps 07/18/22 release dicyclomine 10 mg capsule 10 mg PO Q6-8H PRN for cramps #120 08/04/22 caps methylnaltrexone 150 mg tablet 450 mg PO DAILY #90 tabs 08/25/22 (Relistor) ondansetron 8 mg disintegrating See Rx Instructions .Route 08/25/22 tablet .COMPLEX #90 tabs promethazine 25 mg tablet 25 mg PO Q4-6H PRN nausea and 08/25/22 vomiting #90 tabs pyridoxine (vitamin B6) 50 mg 50 mg PO DAILY 90 days #90 tabs 08/25/22 tablet Allergies Allergy/AdvReac Type Severity Reaction Status Date / Time Penicillins [PENICILLINS] Allergy Severe RASH Verified 08/04/22 13:20 acetaminophen [From Tylenol] Allergy Mild Unknown Verified 08/04/22 13:20 gabapentin [GABAPENTIN] Allergy Mild ABD PAIN Verified 08/04/22 13:20 esomeprazole [Nexium] Allergy Unknown rash Verified 08/04/22 13:20 famotidine [From PEPCID] Allergy Unknown UPSET Verified 08/04/22 13:20 STOMACH lansoprazole [Prevacid] Allergy Unknown rash Verified 08/04/22 13:20 penicillin V Allergy Unknown stomach Verified 08/04/22 13:20 pains tramadol Allergy Hives Verified 08/04/22 13:20 morphine AdvReac Headache Verified 08/04/22 13:20 From NEXIUM Allergy Unknown RASH Uncoded 07/11/22 11:48 Review of Systems Review of Systems Yes all other systems are reviewed and are negative PMFSH Past Medical History Medical History Abdominal pain Asthma Chronic back pain Depression Diabetes 1.5, managed as type 2 Diverticulitis Diverticulitis History of diverticulitis HTN (hypertension) Incisional hernia Migraines SIRS (systemic inflammatory response syndrome) UTI (urinary tract infection) Surgical History History of cholecystectomy History of esophagogastroduodenoscopy (EGD) History of hysterectomy History of partial colectomy Hx of colonoscopy Hx of hand surgery Family History Family History Father Cancer Social History Social History Household Members: Spouse Housing: Apartment Do you presently have visiting nurse or other home services: No Alcohol intake: never Patient Tobacco Use Status: Never used Tobacco Smoked in Last 30 Days: No Second Hand Smoke Exposure: Yes Use of substances other than those prescribed or required for medical reasons: No Advance Directives: Yes Advance Directives on File: Yes Advance Directives Date on File: 10/02/20 Patient : No service: No Current occupational status: disabled Physical Exam ED Vital Signs: Vital Signs - 24 hr 08/26/22 02:44 08/26/22 05:01 Temperature 98.5 F 98.0 F Pulse Rate 72 58 Respiratory Rate 18 20 Blood Pressure 109/59 L 101/51 L Pulse Oximetry 93 93 Oxygen Delivery Method Room Air Room Air BMI result Body Mass Index 31.1 Appearance: Alert. Oriented X3. No acute distress. Eyes: PERRLA, No Nystagmus ENT: Pharynx normal. Oral Mucosa moist Neck: Normal inspection. Neck supple. CVS: Normal heart rate and rhythm. Pulses normal. Respiratory: No respiratory distress. Equal air entry bilateral, no wheezing/rales/rhonchi Abdomen: Soft and nontender. Bowel sounds are present, no mass palpable, no CVA tenderness reducible ventral hernias mild tenderness Skin: Skin warm and dry. Normal skin color. Normal skin turgor. Extremities: No lower extremity edema. No calf tenderness Neuro: Oriented X 3. No motor deficit. No sensory deficit.No cerebellar signs , cranial nerves II-XII intact Medical Decision Making Medical Decision Making [facility] Narrative: Patient is stable labs no signs of small-bowel obstruction her multiple ventral hernias which was seen in the CT scan done 2 days ago patient planned to have surgery done will discharge patient home advised to follow with surgeon Lab Data [facility] Lab Attestation statement: I reviewed the patient's lab results. 08/26/22 04:28 08/26/22 04:28 Labs: Lab Results 08/26/22 08/26/22 08/26/22 Range/Units 04:28 04:28 04:28 WBC 15.7 H (4.8-10.8) X10*3/uL RBC 4.08 L (4.20-5.50) X10*6/uL Hgb 12.8 (12.0-16.0) g/dl Hct 38.1 (37.0-47.0) % MCV 93.4 (80.0-98.0) fL MCH 31.4 (27.0-33.0) pg MCHC 33.6 (31.0-35.0) g/dl RDW 12.5 (11.0-16.0) % Plt Count 265 (160-400) X10*3/uL MPV 10.3 (9.4-12.3) fL Immature Gran % (Auto) 0.5 H (0.0-0.4) % Neut % (Auto) 62.2 (45-73) % Lymph % (Auto) 27.6 (20-40) % Butts % (Auto) 5.7 (2-11) % Eos % (Auto) 3.4 (0-4) % Baso % (Auto) 0.6 (0-2) % Lymph # (Auto) 4.3 (1.2-4.9) X10*3/uL Butts # (Auto) 0.9 (0.1-1.2) X10*3/uL Eos # (Auto) 0.5 H (0.0-0.4) X10*3/uL Baso # (Auto) 0.1 (0.0-0.2) X10*3/uL Abs Immat Gran (auto) 0.08 H (0.00-0.03) X10*3/uL Absolute Neuts (auto) 9.7 H (2.0-8.3) x10*3/uL Absolute Nucleated RBC 0.000 (0.0-0.012) X10*3/uL Nucleated RBC % (auto) 0.0 (0.0-0.2) /100WBC Sodium 139 (135-145) mmol/L Potassium 4.3 (3.3-5.1) mmol/L Chloride 109 H (96-108) mmol/L Carbon Dioxide 22 (22-29) mmol/L Anion Gap 12 (12-20) BUN 15 (9-16) mg/dL Creatinine 0.85 (0.5-1.4) mg/dL Estim Creat Clear Calc 67.7 Estimated GFR > 60 Random Glucose 128 H (60-115) mg/dL Calcium 9.0 D (8.4-10.2) mg/dL Total Bilirubin 0.4 (0.0-1.0) mg/dL AST 18 (5-31) U/L ALT 14 (0-31) U/L Alkaline Phosphatase 80 (39-117) U/L Total Protein 6.4 L (6.5-8.0) g/dL Albumin 3.6 (3.5-5.0) g/dL Lipase 9 (8-78) U/L Urine Color Yellow Urine Appearance Clear Urine pH 5.5 (5.0-9.0) Ur Specific [place] 1.025 (1.005-1.025) Urine Protein Negative (Neg-Trace) mg/dL Urine Glucose (UA) >=1000 H (Negative) mg/dL Urine Ketones Negative (Negative) mg/dL Urine Blood Negative (Negative) Urine Nitrite Negative (Negative) Ur Leukocyte Esterase Negative (Negative) Urine RBC 0-2 (0-2) /HPF Urine WBC 0-5 (0-5) /HPF Ur Squamous Epith Cells 0-2 (0-2) /HPF Urine Bacteria None Seen (None Seen) Hyaline Casts 0-2 (0-2) /LPF Medications Administered Discontinued Medications Generic Name Dose Route Start Last Admin Trade Name Freq PRN Reason Stop Dose Admin Sodium Chloride 1,000 mls @ 999 mls/hr 08/26/22 03:53 08/26/22 04:36 Ns IV 08/26/22 04:53 999 mls/hr .Q1H1M ONE Administration Ketorolac Tromethamine 30 mg 08/26/22 03:53 08/26/22 04:40 Ketorolac Tromethamine 30 Mg/Ml Vial IVPUSH 08/26/22 03:54 30 mg ONCE ONE Administration Ondansetron HCl 4 mg 08/26/22 03:53 08/26/22 04:40 Ondansetron Hcl 4 Mg/2 Ml Vial IVPUSH 08/26/22 03:54 4 mg ONCE ONE Administration Discharge Plan Discharge Clinical Impression: Abdominal pain, Hernia, ventral Patient Disposition: Home, Self-Care Instructions: Ventral Hernia (ED), Chronic Abdominal Pain (ED) Additional Instructions: Continue pain medication follow-up with surgeon as scheduled Prescriptions: No Action omeprazole 40 mg capsule,delayed release(DR/EC) 40 mg PO BID Qty: 90 2RF dicyclomine 10 mg capsule 10 mg PO Q6-8H PRN (Reason: for cramps) Qty: 120 1RF pyridoxine (vitamin B6) 50 mg tablet 50 mg PO DAILY 90 Days Qty: 90 1RF Relistor 150 mg tablet 450 mg PO DAILY Qty: 90 2RF promethazine 25 mg tablet 25 mg PO Q4-6H PRN (Reason: nausea and vomiting) Qty: 90 1RF ondansetron 8 mg tablet,disintegrating See Rx Instructions .ROUTE .COMPLEX Qty: 90 2RF Dose Instruction: TAKE 1 TABLET BY MOUTH EVERY 8 HOURS Rx Instructions: TAKE 1 TABLET BY MOUTH EVERY 8 HOURS zileuton 600 mg tablet, ER multiphase 12 hr 2 tab PO BID lisinopril 2.5 mg Tablet 2.5 mg PO DAILY atorvastatin 20 mg tablet 1 tab PO DAILY sumatriptan succinate 100 mg tablet 100 mg PO DAILY MRX1 PRN (Reason: Migraine Headache) Rx Instructions: max 200mg calcium carbonate-vitamin D3 600 mg(1,500mg) -400 unit tablet 1 tab PO BID levocetirizine 5 mg tablet 1 tab PO BEDTIME docusate sodium [Colace] 100 mg capsule 100 mg PO BID Qty: 60 0RF tizanidine 4 mg tablet 1 tab PO Q8H cromolyn 4 % drops 1 drp ophthalmic (eye) QID idyxuosfjj-dkaypqv-yxnbiihv 50-325-40 mg capsule 1 cap PO Q6H PRN (Reason: Headache) nystatin 100,000 unit/gram powder 1 appl topical BID levalbuterol HCl 0.31 mg/3 mL solution for nebulization 0.31 mg inhalation QID PRN (Reason: Shortness Of Breath) Pulmicort Flexhaler 180 mcg/actuation aerosol powdr breath activated 1 puff PO BID Spiriva Respimat 2.5 mcg/actuation mist 2 puff inhalation DAILY aspirin 81 mg Tablet,Delayed Release (Dr/Ec) 81 mg PO DAILY oxycodone 5 mg tablet 5 mg PO TID PRN (Reason: pain) Qty: 14 0RF zolpidem 10 mg tablet 10 mg PO BEDTIME PRN (Reason: insomnia) bupropion HCl 300 mg tablet extended release 24 hr 300 mg PO DAILY lorazepam 0.5 mg tablet 0.5 mg PO BID PRN Trulicity 0.75 mg/0.5 mL pen injector subcut sucralfate [Carafate] 100 mg/mL suspension 5 ml PO QID Rx Instructions: swish in mouth and swallow; use after food/drink ferrous gluconate 324 mg (38 mg iron) tablet 324 mg PO BID (DME) blood sugar diagnostic Strip See Rx Instructions Not Applicable TID Qty: 10 Rx Instructions: As directed (DME) lancets 28 gauge misc See Rx Instructions topical TID Qty: 100 Rx Instructions: As directed albuterol sulfate 90 mcg/actuation HFA aerosol inhaler 2 puff inhalation Q4H PRN (Reason: wheezing) Jardiance 25 mg tablet 25 mg PO DAILY Dupixent Pen 300 mg/2 mL pen injector subcut zafirlukast 20 mg tablet 20 mg PO BID fluticasone furoate-vilanterol [Breo Ellipta] 200-25 mcg/dose blister with device 1 ea inhalation DAILY estradiol 0.025 mg/24 hr patch weekly 1 patch transdermal QWEEK
[2022-08-26 04:32] LABS: MANUAL DIFF FLAG NO
[2022-08-26 04:33] LABS: Basophils Absolute Auto 0.1 X10*3/uL (0.0-0.2); Basophils Percent Auto 0.6 % (0-2); Eosinophils Absolute Auto 0.5 X10*3/uL (0.0-0.4); Eosinophils Percent Auto 3.4 % (0-4); Hematocrit 38.1 % (37.0-47.0); Hemoglobin 12.8 g/dl (12.0-16.0); Imm Gran Abs Auto 0.08 X10*3/uL (0.00-0.03); Imm Gran Pct Auto 0.5 % (0.0-0.4); Lymphocytes Absolute Auto 4.3 X10*3/uL (1.2-4.9); Lymphocytes Percent Auto 27.6 % (20-40); Mean Corpuscular HGB Conc 33.6 g/dl (31.0-35.0); Mean Corpuscular Hemoglobin 31.4 pg (27.0-33.0); Mean Corpuscular Volume 93.4 fL (80.0-98.0); Mean Platelet Volume 10.3 fL (9.4-12.3); Monocytes Absolute Auto 0.9 X10*3/uL (0.1-1.2); Monocytes Percent Auto 5.7 % (2-11); Neutrophils Absolute Auto 9.7 x10*3/uL (2.0-8.3); Neutrophils Percent Auto 62.2 % (45-73); Platelet Count 265 X10*3/uL (160-400); Red Blood Count 4.08 X10*6/uL (4.20-5.50); Red Cell Distribution Width 12.5 % (11.0-16.0); White Blood Count 15.7 X10*3/uL (4.8-10.8)
[2022-08-26 04:34] LABS: Appearance Urine Clear; Color Urine Yellow; Glucose Urine UA >=1000 mg/dL (Negative); Leukocyte Esterase Urine Negative (Negative); Nitrite Urine Negative (Negative); PH 5.5 (5.0-9.0); Specific Gravity - Urine 1.025 (1.005-1.025); UMIC TRIGGER UACC YES; Urine Blood Negative (Negative); Urine Ketones Negative (Negative); Urine Protein Negative (Neg-Trace)
[2022-08-26] MEDS: 0.9 % Sodium Chloride 1,000 ML 999 ML IV (04:36)
[2022-08-26 04:39] LABS: Bacteria Urine None Seen (None Seen); Hyaline Casts Urine 0-2 /LPF (0-2); RBC Urine 0-2 /HPF (0-2); Squamous Epithelial Cell Urine 0-2 /HPF (0-2); WBC Urine 0-5 /HPF (0-5)
[2022-08-26] MEDS: Ketorolac Tromethamine 30 MG/ML VIAL IVPUSH (04:40)
[2022-08-26] MEDS: ondansetron HCL 4 MG/2 ML VIAL IVPUSH (04:40)
--- NOTE | 2022-08-26 04:52 | PC.NURSE ---
late entry- this rn assumed care of pt @ 0245. pt biba from home. pt changed into hospital gown. resting on stretcher awaiting to be seen by ed provider
[2022-08-26 04:53] LABS: Alanine Aminotransferase 14 U/L (0-31); Albumin Level 3.6 g/dL (3.5-5.0); Alkaline Phosphatase 80 U/L (39-117); Anion Gap 12 (12-20); Aspartate Amino Transferase 18 U/L (5-31); Bilirubin Total 0.4 mg/dL (0.0-1.0); Blood Urea Nitrogen 15 mg/dL (9-16); Carbon Dioxide 22 mmol/L (22-29); Chloride 109 mmol/L (96-108); Creatinine Clr Calc Pharmacy 67.7; Estimated Glomerular Filt Rate > 60; Glucose Random 128 mg/dL (60-115); Lipase 9 U/L (8-78); Potassium 4.3 mmol/L (3.3-5.1); Sodium 139 mmol/L (135-145); Total Protein 6.4 g/dL (6.5-8.0)
--- NOTE | 2022-08-26 04:53 | PC.NURSE ---
this rn attempted iv placement. kiln charger able to place 22g in L hand. pt medicated according to mar
[2022-08-26 05:01] VITALS: BP 101/51; PULSE 58; RESP 20; TEMP 36.7; O2SAT 93
[2022-08-26 07:12] VITALS: BP 110/65; PULSE 56; RESP 19; TEMP 36.6; O2SAT 92
[2022-08-26 08:02] VITALS: BP 110/65; PULSE 56; RESP 19; TEMP 36.6; O2SAT 92
== END 2022-08-26 08:06 | disposition home or self-care (01) ==
PROVIDERS: Emergency Provider Internal Medicine; PCP Family Medicine
DX: K43.9 Ventral hernia without obstruction or gangrene (principal); R10.31 Right lower quadrant pain; Z79.899 Other long term (current) drug therapy
CPT/HCPCS: 36415; 80053; 81001; 83690; 85025; 96374; 96375; 99284; J1885; J2405

== ENCOUNTER → 2022-09-04 10:52 | Outpatient (BNVA) | payer MEDICARE, MEDICAID, SELFPAY | PROVIDERS: PCP Family Medicine; Visit Provider Surgery | DX: K43.2 Incisional hernia without obstruction or gangrene (principal) | CPT/HCPCS: 99212 ==

== ENCOUNTER 2022-12-15 09:40 | Outpatient (REF) | payer MEDICARE, MEDICAID, SELFPAY ==
--- NOTE | ~2022-12-15 | US_ITS ---
EXAMINATION: US RETROPERITONEAL LIMITED (RENAL ONLY) CLINICAL INFORMATION: Calculus of kidney. COMPARISON: CT abdomen and pelvis without contrast 08/22/2022. Ultrasound retroperitoneal limited (renal only) 01/14/2022 and 06/27/2021. TECHNIQUE: Real-time imaging of the kidneys. FINDINGS: RIGHT KIDNEY: 11.1 x 4.5 x 6.5 cm (SAG x AP x TRV). The kidney is normal in size, contour, and echogenicity. Renal cortical thickness is normal. Mild renal pelvic fullness again demonstrated. Unchanged 0.9 x 0.8 x 0.8 cm upper pole cyst is seen. Twinkle artifact identified in the lower pole. LEFT KIDNEY: 9.4 x 4.6 x 5.7 cm (SAG x AP x TRV). The kidney is normal in size, contour, and echogenicity. Renal cortical thickness is normal. No focal parenchymal lesions or hydronephrosis. 0.2 x 0.2 x 0.2 cm mid pole calculus. On previous study, 0.3 x 0.2 x 0.3 cm upper pole calculus is seen. US/US renal BI IMPRESSION: No change right mild renal pelvic fullness and right upper pole subcentimeter renal cyst. 2 mm left mid pole renal calculus and twinkle artifact without measurable stone right lower pole.
== END 2022-12-15 09:41 | disposition home or self-care (01) ==
LOC: HO.HMGCX 09:40
PROVIDERS: PCP Family Medicine; Visit Provider Nurse Practitioner Family
DX: N20.0 Calculus of kidney (principal)
CPT/HCPCS: 76775

== ENCOUNTER 2023-01-22 14:33 | Outpatient (AMB) | payer MEDICARE, MEDICAID, SELFPAY ==
--- NOTE | 2023-01-22 14:38 | MHC.OFFVIS ---
Intake Intake Visit Reasons: nephrolithias- 1 yr renal US follow up(set) Intake Note: Patient presents for follow up nephrolithiasis/ultrasound (imaging 12/15/22) Urology Medications: Vitamin B6 Blood Thinner: aspirin Playroom Attendant Required: No Accompanied by: Unknown Allergies Penicillins [PENICILLINS] Allergy (Severe, Verified 01/22/23 21:30) RASH acetaminophen [From Tylenol] Allergy (Mild, Verified 01/22/23 21:30) Unknown gabapentin [GABAPENTIN] Allergy (Mild, Verified 01/22/23 21:30) ABD PAIN esomeprazole [Nexium] Allergy (Unknown, Verified 01/22/23 21:30) rash famotidine [From PEPCID] Allergy (Unknown, Verified 01/22/23 21:30) UPSET STOMACH lansoprazole [Prevacid] Allergy (Unknown, Verified 01/22/23 21:30) rash penicillin V Allergy (Unknown, Verified 01/22/23 21:30) stomach pains tramadol Allergy (Verified 01/22/23 21:30) Hives morphine Adverse Reaction (Verified 01/22/23 21:30) Headache From NEXIUM Allergy (Unknown, Uncoded 01/22/23 21:30) RASH Medication List - Last Reconciled 01/22/23 by ENID Ashby-OSWALDO albuterol sulfate 90 mcg/actuation 2 puffs inhalation Q4H PRN aspirin 81 mg PO DAILY atorvastatin 1 tab PO DAILY blood sugar diagnostic As directed budesonide 180 mcg/actuation (Pulmicort Flexhaler) 1 puff PO BID bupropion HCl 300 mg PO DAILY onghmvdjzg-rdomviu-fejgyfrk 50-325-40 mg 1 cap PO Q6H PRN calcium carbonate-vitamin D3 600 mg-10 mcg (400 unit) 1 tab PO BID conjugated estrogens (Premarin) vaginal DAILY cromolyn 4% 1 drp ophthalmic (eye) QID dicyclomine 10 mg PO Q6-8H PRN docusate sodium (Colace) 100 mg PO BID dulaglutide (Trulicity) mg subcut dulaglutide (Trulicity) mg subcut dupilumab (Dupixent) mg subcut empagliflozin (Jardiance) 25 mg PO DAILY estradiol 1 patch transdermal QWEEK ferrous gluconate 324 mg PO BID fluticasone furoate-vilanterol 200-25 mcg/dose (Breo Ellipta) 1 ea inhalation DAILY lancets As directed levalbuterol HCl 0.31 mg inhalation QID PRN levocetirizine 1 tab PO BEDTIME lisinopril 2.5 mg PO DAILY lorazepam 0.5 mg PO BID PRN methylnaltrexone (Relistor) 450 mg (3 x 150 mg) PO DAILY nystatin 1 appl topical BID omeprazole 40 mg PO BID ondansetron 8 mg PO Q8H oxycodone 5 mg PO TID PRN promethazine 25 mg PO Q4-6H PRN pyridoxine (vitamin B6) 50 mg PO DAILY 90 days sucralfate (Carafate) 5 mL PO QID sumatriptan succinate 100 mg PO DAILY MRX1 PRN tiotropium bromide 2.5 mcg/actuation (Spiriva Respimat) 2 puffs inhalation DAILY tizanidine 1 tab PO Q8H zafirlukast 20 mg PO BID zileuton ER 2 tabs PO BID zolpidem 10 mg PO BEDTIME PRN HPI HPI Comments History of Present Illness Details Pati is a pleasant 62-year-old female patient who was accompanied by her partner at today's visit. She has a past medical history of incisional hernia, UTI, chronic back pain, diverticulitis, systemic inflammatory response syndrome, asthma, depression, migraines, diabetes, and hypertension. In discussion with the patient today she reports to be doing and feeling well. She presents to the office today for follow-up of her longstanding history of nephrolithiasis. Recent renal imaging results reviewed with the patient today. Right kidney with mild renal pelvic fullness again demonstrated. Unchanged 0.9 x 0.8 x 0.8 cm upper pole cyst is seen. Twinkle artifact identified in the lower pole. Left kidney with no lesions or hydronephrosis. 2 mm mid pole calculus. When asked patient denies any bothersome urinary issues or concerns at this time. She denies urinary urgency, urinary frequency, incontinence, nocturia, hematuria, dysuria, foul smelling urine, changes to urinary stream, flank pain, fever, and or chills. She is happy with her current voiding parameters. Discussed at length potential causes for renal cyst as well as nephrolithiasis. In office urinalysis results reviewed with the patient today. Patient otherwise denies any other issues or concerns at this time. [facility] Medical History Incisional hernia UTI (urinary tract infection) Chronic back pain Diverticulitis Diverticulitis History of diverticulitis SIRS (systemic inflammatory response syndrome) Abdominal pain Asthma Depression Migraines Diabetes 1.5, managed as type 2 HTN (hypertension) Surgical History Hx of hand surgery Hx of colonoscopy History of esophagogastroduodenoscopy (EGD) History of partial colectomy History of hysterectomy History of cholecystectomy Family History Father Cancer Social History Household Members: Spouse Housing: Apartment Do you presently have visiting nurse or other home services: No Alcohol intake: never Patient Tobacco Use Status: Never used Tobacco Second Hand Smoke Exposure: Yes Advance Directives Date on File: 10/02/20 service: No Current occupational status: disabled Review of Systems Const Reports as per HPI Eyes Reports no additional complaints ENT Reports no additional complaints Card Reports as per HPI Resp Reports as per HPI GI Reports as per HPI Reports as per HPI Musc Reports as per HPI Neuro Reports as per HPI Psych Reports as per HPI Endo Reports as per HPI Bipin/Lymph Reports no additional complaints Aller/Immun Reports no additional complaints Physical Exam Const General: cooperative, healthy appearing, comfortable, no acute distress, well developed, alert and awake Orientation/consciousness: patient oriented x3 Limitations: no limitations HEENT Head: Yes normal to inspection, Yes normocephalic and Yes atraumatic Ears: hearing grossly normal bilaterally Eyes General: appearance normal, both eyes and all related structures Neck Neck: Yes normal visual inspection and Yes trachea midline Chest Chest palpation & inspection: normal inspection of the chest Resp Effort & Inspection: normal respiratory effort and able to speak in complete sentences Cardio Rate: regular rate GI Inspection: Yes normal to inspection General: Yes no CVA tenderness Back/Spine/Pelvis Back: no CVA tenderness Skin General skin exam: no rashes or lesions noted Neuro General: patient oriented x3 Extrem General: Yes normal to inspection Psych Appearance: grossly normal and well kempt Mental Status: mental status grossly normal Speech and movement: Normal speech and movement present and Clear speech present Affect: normal affect Attitude: cooperative Thought process: Normal thought process present Thought content: Normal thought content present Insight: Good insight present (Psych) Judgement: Good judgement present (Psych) Results AMB Urinalysis, Automated UA Leukoctes 0 Tani/uL Last Edit by [employer] on 01/22/23 14:50 UA Nitrite Last Edit by [employer] on 01/22/23 14:50 UA Urobilinogen 0.2 mg/dL Last Edit by [employer] on 01/22/23 14:50 UA Protein 0 mg/dL Last Edit by [employer] on 01/22/23 14:50 UA pH 7.0 Last Edit by [employer] on 01/22/23 14:50 UA Blood 0 Terrell/uL Last Edit by [employer] on 01/22/23 14:50 UA Specific [place] 1.015 Last Edit by [employer] on 01/22/23 14:50 UA Ketone Last Edit by [employer] on 01/22/23 14:50 UA Bilirubin 0 mg/dL Last Edit by [employer] on 01/22/23 14:50 UA Glucose 1000 mg/dL Last Edit by [employer] on 01/22/23 14:50 Results Reviewed Results Reviewed: Laboratory Last Values Urine pH (Auto) 7.0 01/22/23 14:44 Specific [place] (Auto) 1.015 01/22/23 14:44 Urine Protein (Auto) 0 mg/dL 01/22/23 14:44 Glucose (UA)(Auto) 1000 mg/dL 01/22/23 14:44 Urine Blood (Auto) 0 Terrell/uL 01/22/23 14:44 Urine Bilirubin (Auto) 0 mg/dL 01/22/23 14:44 Urine Urobilinogen (Auto) 0.2 mg/dL 01/22/23 14:44 Leukocyte Esterase (Auto) 0 Tani/uL 01/22/23 14:44 Date of Service: 12/15/22 EXAMINATION: US RETROPERITONEAL LIMITED (RENAL ONLY) FINDINGS: RIGHT KIDNEY: 11.1 x 4.5 x 6.5 cm (SAG x AP x TRV). The kidney is normal in size, contour, and echogenicity. Renal cortical thickness is normal. Mild renal pelvic fullness again demonstrated. Unchanged 0.9 x 0.8 x 0.8 cm upper pole cyst is seen. Twinkle artifact identified in the lower pole. LEFT KIDNEY: 9.4 x 4.6 x 5.7 cm (SAG x AP x TRV). The kidney is normal in size, contour, and echogenicity. Renal cortical thickness is normal. No focal parenchymal lesions or hydronephrosis. 0.2 x 0.2 x 0.2 cm mid pole calculus. On previous study, 0.3 x 0.2 x 0.3 cm upper pole calculus is seen. IMPRESSION: No change right mild renal pelvic fullness and right upper pole subcentimeter renal cyst. 2 mm left mid pole renal calculus and twinkle artifact without measurable stone right lower pole. Assessment & Plan Assessment & Plan (1) Renal cyst: Code(s): N28.1 - Cyst of kidney, acquired (2) Nephrolithiasis: Code(s): N20.0 - Calculus of kidney Plan In office urinalysis results reviewed with the patient today; as noted above. Recent renal imaging results reviewed with the patient today; as noted above. Patient denies any bothersome urinary issues or concerns at this time. Discussed, educated, encouraged on the importance of drinking plenty of water daily. Discussed adding 1 oz of lemon juice to water daily. Continue vitamin B6 as discussed and prescribed. Discussed importance of managing diabetes for overall health and well-being. Will obtain renal ultrasound in 1 year. Follow-up in 1 year with imaging to be completed prior; or sooner with any issues, concerns, and or questions. Orders: Orders AMB Urinalysis Automated Today Z13.9 - Encounter for screening, unspecified US renal BI 364 Days N20.0 - Calculus of kidney, N28.1 - Cyst of kidney, acquired Patient Instructions: The patient had an opportunity to ask questions regarding the treatment plan. All questions were answered. Physical exam, labs, and imaging were discussed and reviewed in detail. As well as risks, benefits, and discussion of treatment choices. No major barriers to understanding were identified. The patient expressed understanding and agreement with the above treatment plan. The patient was made aware they should contact our office by phone for worsening of their current condition, the appearance of new symptoms, or with any questions or concerns. Compliance is encouraged with any medications and follow up testing that is ordered. It is a privilege to be allowed the opportunity to participate in? your urological care.? Again, if you have any questions or concerns If you have any questions or concerns please do not hesitate to contact me. The office is [phone]. This note is constructed using voice recognition software. While every effort has been made to ensure accuracy professor of geography errors may have been included. Yours sincerely, YVONNE Ashby Coding Level of Care Code Est Pt Level 3 (49257) Diagnoses Renal cyst N28.1 Nephrolithiasis N20.0
== END 2023-01-22 15:19 | disposition home or self-care (01) ==
PROVIDERS: PCP Family Medicine; Visit Provider Nurse Practitioner Family
DX: N28.1 Cyst of kidney, acquired (principal); N20.0 Calculus of kidney
CPT/HCPCS: 99213

== ENCOUNTER → 2023-01-22 14:33 | Outpatient (BNVA) | payer MEDICARE, MEDICAID, SELFPAY | PROVIDERS: Visit Provider Nurse Practitioner Family | DX: N28.1 Cyst of kidney, acquired (principal); N20.0 Calculus of kidney | CPT/HCPCS: 81003; 99212 ==

== ENCOUNTER 2023-05-15 06:02 | Inpatient (IN) | payer MEDICARE, MEDICAID, SELFPAY ==
--- NOTE | ~2023-05-15 | FL_ITS ---
EXAMINATION: FL SMALL BOWEL SERIES CLINICAL INFORMATION: Abdominal pain, persistent nausea COMPARISON: None available. TECHNIQUE: Study is limited by patient habitus. Following a sheet metal foreman image of the abdomen, contrast was administered orally, and interval abdominal radiographs were performed to assess for contrast progression through the small bowel. Following contrast transit through the small bowel and into the colon, the patient was placed on the fluoroscopy table, and multiple spot images were obtained. FINDINGS: There is normal transit time of contrast material through the small bowel, with contrast present in the colon by 1 hour 30 minutes. A large amount contrast remains in the fundus of the stomach. Small bowel loops are of normal caliber throughout the abdomen and pelvis. No fixed regions of luminal narrowing are seen to suggest stricturing. The cecum is located in the deep pelvis. Anastomotic suture line is seen overlying the sacrum. FLUOROSCOPY TIME: 27 seconds DOSE AREA PRODUCT: 1118 uGy-m2 (microgray-meter squared) FL/FL small bowel follow through IMPRESSION: 1. Contrast is seen in the right colon at 1 hour 30 minutes. 2. No small bowel dilation is seen to suggest obstruction. The small bowel appears normal. 2. A large amount of contrast is still present in the fundus of the stomach at the end of this exam. This procedure was performed by Nasir Bronson PA-C, and supervised by Dr. Velasquez
--- NOTE | ~2023-05-15 | CT_ITS ---
EXAMINATION: CT ABDOMEN AND PELVIS WITH CONTRAST CLINICAL INFORMATION: Left lower quadrant tenderness. COMPARISON: 08/22/2022 TECHNIQUE: Multidetector volumetric images were obtained from the superior aspect of the liver through the pubic symphysis following administration 85 mL of Omnipaque 350 intravenous contrast. Sagittal and coronal reformatted images were obtained on the technologist's workstation. Oral contrast: No This CT examination was performed using dose optimization techniques as appropriate, variously including the following: *Automated exposure control *Adjustment of mA and/or kV according to patient size (this includes techniques or standardized protocols for targeted exams where dose is matched to indication/reason for exam; i.e. extremities or head) *Use of iterative reconstruction technique DLP: 588 mGy-cm FINDINGS: LUNG BASES: The visualized lung bases are unremarkable. LIVER, GALLBLADDER, AND BILIARY TREE: The liver is normal in size and contour. No focal hepatic lesion or biliary ductal dilatation is present. The gallbladder is not visualized. PANCREAS: No ductal dilatation. SPLEEN: Not enlarged. ADRENAL GLANDS: No adrenal mass. KIDNEYS AND URETERS: The kidneys are symmetric in size and enhancement. 9 mm posterior midpole right renal cyst. No further routine follow-up is needed. No hydronephrosis, hydroureter, or calculi seen. No perinephric stranding. BLADDER: Underdistended. GASTROINTESTINAL TRACT: There is a surgical anastomosis in the distal small bowel as well as in the rectosigmoid colon. There is fecalization of the distal small bowel loops suggesting intestinal dysmotility. There is distention of mid to distal small bowel. Appendix is within normal limits. Moderate retained stool in the colon. Diverticular disease of the sigmoid colon. ABDOMINAL WALL: There are several fat-containing hernias in the periumbilical region. The right-sided spigelian hernia appears reduced on the current study. Midline hernia inferior to the umbilicus contains nonobstructed small bowel. The hernia measures 11.7 x 5.2 x 9.8 cm. The neck of the hernia measures 5.3 cm. There is no fluid in the hernia sac. LYMPH NODES: No bulky lymphadenopathy. VASCULAR: Normal caliber abdominal aorta. PELVIC VISCERA: Uterus is surgically absent. OSSEOUS STRUCTURES: No destructive bone lesions. CT/CT abdomen pelvis w IV con IMPRESSION: Multiple abdominal hernias as described in detail above. The right-sided spigelian hernia appears reduced on the current study. New dilatation/distention of mid to distal small bowel loops measuring up to 3 cm with fecalization. No transition point. No focal bowel wall thickening. Advise clinical correlation for partial small bowel obstruction.
[2023-05-15 06:06] VITALS: BP 136/82; PULSE 104; RESP 18; TEMP 36.8; O2SAT 96; BMI 31.1
[2023-05-15 06:50] LABS: MANUAL DIFF FLAG NO
[2023-05-15 06:51] LABS: Basophils Absolute Auto 0.1 X10*3/uL (0.0-0.2); Basophils Percent Auto 0.3 % (0-2); Eosinophils Absolute Auto 0.3 X10*3/uL (0.0-0.4); Eosinophils Percent Auto 1.8 % (0-4); Hemoglobin 14.7 g/dl (12.0-16.0); Imm Gran Abs Auto 0.08 X10*3/uL (0.00-0.03); Imm Gran Pct Auto 0.4 % (0.0-0.4); Lymphocytes Percent Auto 10.5 % (20-40); Mean Corpuscular HGB Conc 34.2 g/dl (31.0-35.0); Mean Corpuscular Hemoglobin 31.7 pg (27.0-33.0); Mean Corpuscular Volume 92.9 fL (80.0-98.0); Mean Platelet Volume 10.6 fL (9.4-12.3); Monocytes Absolute Auto 1.1 X10*3/uL (0.1-1.2); Monocytes Percent Auto 5.8 % (2-11); Neutrophils Percent Auto 81.2 % (45-73); Platelet Count 284 X10*3/uL (160-400); Red Blood Count 4.63 X10*6/uL (4.20-5.50); Red Cell Distribution Width 12.5 % (11.0-16.0); White Blood Count 18.5 X10*3/uL (4.8-10.8)
[2023-05-15 07:06] LABS: Alanine Aminotransferase 21 U/L (0-31); Albumin Level 4.3 g/dL (3.5-5.0); Alkaline Phosphatase 90 U/L (39-117); Anion Gap 14 (12-20); Aspartate Amino Transferase 15 U/L (5-31); Bilirubin Total 0.4 mg/dL (0.0-1.0); Blood Urea Nitrogen 14 mg/dL (9-16); Calcium 9.8 mg/dL (8.4-10.2); Carbon Dioxide 25 mmol/L (22-29); Chloride 105 mmol/L (96-108); Creatinine Clr Calc Pharmacy 51.3; Estimated Glomerular Filt Rate 48; Glucose Random 181 mg/dL (60-115); Potassium 4.2 mmol/L (3.3-5.1); Sodium 140 mmol/L (135-145)
--- NOTE | 2023-05-15 07:31 | ED.ABDPAIN ---
HPI - Abdominal Pain General Chief Complaint: Abdominal Pain Stated Complaint: abd pain Time Seen by Provider: 05/15/23 07:16 Source: patient Mode of arrival: ambulatory Limitations: no limitations History of Present Illness HPI narrative: Patient is a 62-year-old female with history of T2 DM, nephrolithiasis, diverticulitis presenting to the emergency department with worsening left lower quadrant abdominal pain since the end of March. Also complains of nausea and vomiting but denies diarrhea or constipation. Reports emesis is nonbloody, nonbilious. Denies fevers. Denies any dysuria, frequency or other urinary symptoms. States that she recently saw PCP for her symptoms and has an outpatient CT scheduled for Thursday but pain significantly increased overnight. Has not taken any boki-xac-nkzkxda medications for her symptoms. MD elicited complaint: abdominal pain Pertinent past history: diverticulitis and kidney stones Onset (ago): week(s) Pain Consistency: colicky Location: LLQ Severity: severe Pain scale (0-10): 10 Quality: sharp Radiation: none Migration to: no migration Exacerbating factors: movement Relieving factors: rest Associated symptoms: nausea and vomiting Related Data Home Medications Medication Instructions Recorded Confirmed atorvastatin 20 mg tablet 1 tab PO DAILY 04/17/20 09/04/22 calcium carbonate 600 mg-vitamin 1 tab PO BID 04/17/20 09/04/22 D3 10 mcg (400 unit) tablet levocetirizine 5 mg tablet 1 tab PO BEDTIME 04/17/20 09/04/22 sumatriptan succinate 100 mg tablet 100 mg PO DAILY MRX1 PRN Migraine 04/17/20 09/04/22 Headache blood sugar diagnostic #10 ea 09/28/20 09/04/22 lancets 28 gauge #100 ea 09/28/20 09/04/22 albuterol sulfate 90 mcg/actuation 2 puff inhalation Q4H PRN wheezing 10/09/20 09/04/22 aerosol inhaler lisinopril 2.5 mg tablet 2.5 mg PO DAILY 11/07/20 09/04/22 zileuton 600 mg tablet,extended 2 tab PO BID 11/07/20 09/04/22 release 12hr mphase aspirin 81 mg tablet,delayed 81 mg PO DAILY 12/11/20 09/04/22 release budesonide 180 mcg/actuation 1 puff PO BID 12/11/20 09/04/22 breath activated powder inhaler (Pulmicort Flexhaler) ovqtqioefq-ufydomr-ubjarlou 50 1 cap PO Q6H PRN Headache 12/11/20 09/04/22 mg-325 mg-40 mg capsule cromolyn 4 % eye drops 1 drp ophthalmic (eye) QID 12/11/20 09/04/22 levalbuterol HCl 0.31 mg/3 mL 0.31 mg inhalation QID PRN 12/11/20 09/04/22 solution for nebulization Shortness Of Breath nystatin 100,000 unit/gram topical 1 appl topical BID 12/11/20 09/04/22 powder tiotropium bromide 2.5 2 puff inhalation DAILY 12/11/20 09/04/22 mcg/actuation mist for inhalation (Spiriva Respimat) tizanidine 4 mg tablet 1 tab PO Q8H 12/11/20 09/04/22 zolpidem 10 mg tablet 10 mg PO BEDTIME PRN insomnia 01/04/21 09/04/22 bupropion HCl 300 mg 24 hr tablet, 300 mg PO DAILY 07/18/21 09/04/22 extended release lorazepam 0.5 mg tablet 0.5 mg PO BID PRN 07/18/21 09/04/22 dulaglutide 0.75 mg/0.5 mL mg subcut 07/29/21 09/04/22 subcutaneous pen injector (Trulicity) ferrous gluconate 324 mg (38 mg 324 mg PO BID 07/29/21 09/04/22 iron) tablet sucralfate 100 mg/mL oral 5 ml PO QID 07/29/21 09/04/22 suspension (Carafate) empagliflozin 25 mg tablet 25 mg PO DAILY 01/17/22 09/04/22 (Jardiance) dupilumab 300 mg/2 mL subcutaneous mg subcut 07/11/22 09/04/22 pen injector (Dupixent) zafirlukast 20 mg tablet 20 mg PO BID 07/11/22 09/04/22 estradiol 0.025 mg/24 hr weekly 1 patch transdermal QWEEK 08/04/22 09/04/22 transdermal patch fluticasone furoate 200 1 ea inhalation DAILY 08/04/22 09/04/22 mcg-vilanterol 25 mcg/dose inhalation powder (Breo Ellipta) conjugated estrogens 0.625 mg/gram vaginal DAILY 01/22/23 vaginal cream (Premarin) dulaglutide 1.5 mg/0.5 mL mg subcut 01/22/23 subcutaneous pen injector (Trulicity) Previous Rx's Medication Instructions Recorded docusate sodium 100 mg capsule 100 mg PO BID constipation #60 caps 11/21/20 (Colace) oxycodone 5 mg tablet 5 mg PO TID PRN pain #14 tabs 12/14/20 methylnaltrexone 150 mg tablet 450 mg (3 x 150 mg) PO DAILY #90 12/31/22 (Relistor) tabs pyridoxine (vitamin B6) 50 mg 50 mg PO DAILY 90 days #90 tabs 12/31/22 tablet dicyclomine 10 mg capsule 10 mg PO Q6-8H PRN for cramps #120 02/04/23 caps omeprazole 40 mg capsule,delayed 40 mg PO BID 90 days #180 caps 03/24/23 release ondansetron 8 mg disintegrating 8 mg PO Q8H #90 tabs 05/04/23 tablet promethazine 25 mg tablet 25 mg PO Q4-6H PRN for 05/04/23 nausea/vomiting #90 tabs Allergies Allergy/AdvReac Type Severity Reaction Status Date / Time Penicillins [PENICILLINS] Allergy Severe RASH Verified 05/15/23 06:06 acetaminophen [From Tylenol] Allergy Mild Unknown Verified 05/15/23 06:06 gabapentin [GABAPENTIN] Allergy Mild ABD PAIN Verified 05/15/23 06:06 esomeprazole [Nexium] Allergy Unknown rash Verified 05/15/23 06:06 famotidine [From PEPCID] Allergy Unknown UPSET Verified 05/15/23 06:06 STOMACH lansoprazole [Prevacid] Allergy Unknown rash Verified 05/15/23 06:06 penicillin V Allergy Unknown stomach Verified 05/15/23 06:06 pains tramadol Allergy Hives Verified 05/15/23 06:06 morphine AdvReac Headache Verified 05/15/23 06:06 From NEXIUM Allergy Unknown RASH Uncoded 05/15/23 06:06 Review of Systems Review of Systems As per HPI. Yes all other systems are reviewed and are negative Constitutional: Reports as per HPI PMFSH Past Medical History Onset Date is defined in the Problem List Problems that require an onset date and time if occurred within 24 hrs of arrival to the ED Aortic Dissection and Rupture; Neurologic impairment; Cardiopulmonary Arrest; Endotracheal Intubation; Insertion or Replacement of Mechanical Circulatory Assist Device Medical History Incisional hernia UTI (urinary tract infection) Chronic back pain Diverticulitis Diverticulitis History of diverticulitis SIRS (systemic inflammatory response syndrome) Abdominal pain Asthma Depression Migraines Diabetes 1.5, managed as type 2 HTN (hypertension) Surgical History Hx of hand surgery Hx of colonoscopy History of esophagogastroduodenoscopy (EGD) History of partial colectomy History of hysterectomy History of cholecystectomy Family History Family History Father Cancer Social History Social History Household Members: Spouse Housing: Apartment Do you presently have visiting nurse or other home services: No Alcohol intake: never Comment: Pt. sleeping Patient Tobacco Use Status: Never used Tobacco Second Hand Smoke Exposure: Yes Advance Directives: Yes Advance Directives on File: Yes Advance Directives Date on File: 10/02/20 service: No Current occupational status: disabled Physical Exam ED Vital Signs: Vital Signs - 24 hr 05/15/23 06:06 05/15/23 09:46 Temperature 98.2 F Pulse Rate 104 H Respiratory Rate 18 16 Blood Pressure 136/82 Pulse Oximetry 96 Oxygen Delivery Method Room Air BMI result Body Mass Index 31.1 Vital signs have been reviewed and appear to be correct. Blood pressure normal. Heart rate mild tachycardia. Respiratory rate normal. Temperature normal. Oxygen saturation normal. Const General: cooperative, healthy appearing and no acute distress Orientation/consciousness: oriented to person, oriented to place, oriented to time and patient oriented x3 Limitations: no limitations HENMT Head: Yes normocephalic and Yes atraumatic Ears: external ears normal General nose exam: Normal external nose present Face and sinus: Yes face symmetric Mouth: oropharynx normal and moist mucous membranes Throat: Yes uvula midline Eyes Pupils: Equal, round and reactive pupils present Neck Neck: Yes normal visual inspection and Yes supple Resp Effort & Inspection: normal respiratory effort and able to speak in complete sentences Auscultation: clear to auscultation bilaterally Cardio Rate: regular rate Rhythm: regular rhythm Heart sounds: S1 normal heart sound present and S2 normal heart sound present GI Inspection: Yes normal to inspection Palpation (GI): Soft to palpation, Tenderness to palpation present (GI) in the LLQ, no guarding and No Rebound tenderness present Auscultation: normoactive bowel sounds General: Yes no CVA tenderness Back/Spine/Pelvis Back: no CVA tenderness Skin General skin exam: elasticity normal and turgor normal Neuro General: oriented to person, oriented to place, oriented to time, patient oriented x3, moves all extremities, no focal motor deficits and CN's II-XI intact bilaterally Cranial nerves: Yes Equal, round and reactive pupils present Cognition (Neuro): normal cognition Extrem General: Yes full ROM, Yes no pedal edema and Yes no calf tenderness Psych Mental Status: mental status grossly normal Affect: normal affect Thought process: Normal thought process present Medical Decision Making Medical Decision Making [facility] Narrative: Patient is a 62-year-old female with history of T2 DM, nephrolithiasis, diverticulitis presenting to the emergency department with worsening left lower quadrant abdominal pain since the end of March. On exam patient is awake, A+Ox3, mild tachycardia, VS otherwise WNL, afebrile, normal neurological exam without focal deficits, physical exam findings as above. Given reported symptoms and physical exam findings, initial differential includes diverticulitis, UTI/pyelonephritis, obstruction, ovarian cyst. Less likely appendicitis. Labs notable for leukocytosis with left shift, no electrolyte abnormalities. CT notable for new dilatation of mid to distal small bowel loops up to 3cm with fecalization, no transition point, no focal bowel wall thickening. My interpretation is in agreement with the radiologist's interpretation. Results discussed with patient bedside. [place] Text to Dr. Rabago from general surgery who states he will come to ED to evaluate patient. 13:15 Patient evaluated in the ED by Dr. Rabago who states he will admit patient. Differential Diagnosis Differential Diagnoses: The differential diagnosis associated with the presentation includes As per [facility] Admission/Observation Consideration of admission/observation: Escalation of care including admission/observation considered Consult Healthcare Provider Management of the patient was discussed with: Photography Editor (Dr. Rabago, surgery) Lab Data [facility] Lab Attestation statement: I reviewed the patient's lab results. As per MDM 05/15/23 06:46 05/15/23 06:46 Labs: Lab Results 05/15/23 Range/Units 06:46 WBC 18.5 H (4.8-10.8) X10*3/uL RBC 4.63 (4.20-5.50) X10*6/uL Hgb 14.7 (12.0-16.0) g/dl Hct 43.0 (37.0-47.0) % MCV 92.9 (80.0-98.0) fL MCH 31.7 (27.0-33.0) pg MCHC 34.2 (31.0-35.0) g/dl RDW 12.5 (11.0-16.0) % Plt Count 284 (160-400) X10*3/uL MPV 10.6 (9.4-12.3) fL Immature Gran % (Auto) 0.4 (0.0-0.4) % Neut % (Auto) 81.2 H (45-73) % Lymph % (Auto) 10.5 L (20-40) % Lynn % (Auto) 5.8 (2-11) % Eos % (Auto) 1.8 (0-4) % Baso % (Auto) 0.3 (0-2) % Lymph # (Auto) 2.0 (1.2-4.9) X10*3/uL Lynn # (Auto) 1.1 (0.1-1.2) X10*3/uL Eos # (Auto) 0.3 (0.0-0.4) X10*3/uL Baso # (Auto) 0.1 (0.0-0.2) X10*3/uL Abs Immat Gran (auto) 0.08 H (0.00-0.03) X10*3/uL Absolute Neuts (auto) 15.0 H (2.0-8.3) x10*3/uL Absolute Nucleated RBC 0.000 (0.0-0.012) X10*3/uL Nucleated RBC % (auto) 0.0 (0.0-0.2) /100WBC Sodium 140 (135-145) mmol/L Potassium 4.2 (3.3-5.1) mmol/L Chloride 105 (96-108) mmol/L Carbon Dioxide 25 (22-29) mmol/L Anion Gap 14 (12-20) BUN 14 (9-16) mg/dL Creatinine 1.15 (0.5-1.4) mg/dL Estim Creat Clear Calc 51.3 Estimated GFR 48 Random Glucose 181 H (60-115) mg/dL Calcium 9.8 D (8.4-10.2) mg/dL Total Bilirubin 0.4 (0.0-1.0) mg/dL AST 15 (5-31) U/L ALT 21 (0-31) U/L Alkaline Phosphatase 90 (39-117) U/L Total Protein 8.0 (6.5-8.0) g/dL Albumin 4.3 (3.5-5.0) g/dL Independent Interpretation I performed an independent interpretation of an: CT Scan Interpretation: new dilatation of mid to distal small bowel loops up to 3cm with fecalization, no transition point, no focal bowel wall thickening Radiology Impression Discussion of test interpretation with radiology: I have reviewed the radiologist's reading. Radiologist Impression: CT/CT abdomen pelvis w IV con IMPRESSION: Multiple abdominal hernias as described in detail above. The right-sided spigelian hernia appears reduced on the current study. New dilatation/distention of mid to distal small bowel loops measuring up to 3 cm with fecalization. No transition point. No focal bowel wall thickening. Advise clinical correlation for partial small bowel obstruction. External Record Review External record reviewed: Inpatient record, Office record and Outpatient record Medications Administered Discontinued Medications Generic Name Dose Route Start Last Admin Trade Name Nisha PRN Reason Stop Dose Admin Fentanyl 50 mcg 05/15/23 09:39 05/15/23 09:46 Fentanyl Citrate/Pf 100 Mcg/2 Ml Vial IVPUSH 05/15/23 09:40 50 mcg ONCE ONE Administration Protocol Sodium Chloride 1,000 mls @ 999 mls/hr 05/15/23 07:45 05/15/23 08:41 Ns IV 05/15/23 08:45 Infused .Q1H1M LIBORIO Infusion Iohexol 100 ml 05/15/23 08:16 05/15/23 08:17 Iohexol 350 Mg/Ml 100 Ml Infus..Btl IV 05/15/23 08:17 85 ml ONCE ONE Administration Ketorolac Tromethamine 15 mg 05/15/23 07:36 05/15/23 07:48 Ketorolac Tromethamine 15 Mg/Ml Vial IVPUSH 05/15/23 07:37 15 mg ONCE ONE Administration Ondansetron HCl 4 mg 05/15/23 07:36 05/15/23 07:48 Ondansetron Hcl 4 Mg/2 Ml Vial IVPUSH 05/15/23 07:37 4 mg ONCE ONE Administration Discharge Plan Discharge Patient Disposition: Admitted As Inpatient Prescriptions: No Action Relistor 150 mg tablet 450 mg PO DAILY Qty: 90 2RF pyridoxine (vitamin B6) 50 mg tablet 50 mg PO DAILY 90 Days Qty: 90 1RF dicyclomine 10 mg capsule 10 mg PO Q6-8H PRN (Reason: for cramps) Qty: 120 3RF omeprazole 40 mg capsule,delayed release(DR/EC) 40 mg PO BID 90 Days Qty: 180 2RF promethazine 25 mg tablet 25 mg PO Q4-6H PRN (Reason: for nausea/vomiting) Qty: 90 1RF ondansetron 8 mg tablet,disintegrating 8 mg PO Q8H Qty: 90 0RF zileuton 600 mg tablet, ER multiphase 12 hr 2 tab PO BID lisinopril 2.5 mg Tablet 2.5 mg PO DAILY atorvastatin 20 mg tablet 1 tab PO DAILY sumatriptan succinate 100 mg tablet 100 mg PO DAILY MRX1 PRN (Reason: Migraine Headache) Rx Instructions: max 200mg calcium carbonate-vitamin D3 600 mg(1,500mg) -400 unit tablet 1 tab PO BID levocetirizine 5 mg tablet 1 tab PO BEDTIME docusate sodium [Colace] 100 mg capsule 100 mg PO BID Qty: 60 0RF tizanidine 4 mg tablet 1 tab PO Q8H cromolyn 4 % drops 1 drp ophthalmic (eye) QID ivpvwwqoex-sqmllre-ystrhgac 50-325-40 mg capsule 1 cap PO Q6H PRN (Reason: Headache) nystatin 100,000 unit/gram powder 1 appl topical BID levalbuterol HCl 0.31 mg/3 mL solution for nebulization 0.31 mg inhalation QID PRN (Reason: Shortness Of Breath) Pulmicort Flexhaler 180 mcg/actuation aerosol powdr breath activated 1 puff PO BID Spiriva Respimat 2.5 mcg/actuation mist 2 puff inhalation DAILY aspirin 81 mg Tablet,Delayed Release (Dr/Ec) 81 mg PO DAILY oxycodone 5 mg tablet 5 mg PO TID PRN (Reason: pain) Qty: 14 0RF zolpidem 10 mg tablet 10 mg PO BEDTIME PRN (Reason: insomnia) bupropion HCl 300 mg tablet extended release 24 hr 300 mg PO DAILY lorazepam 0.5 mg tablet 0.5 mg PO BID PRN Trulicity 0.75 mg/0.5 mL pen injector subcut sucralfate [Carafate] 100 mg/mL suspension 5 ml PO QID Rx Instructions: swish in mouth and swallow; use after food/drink ferrous gluconate 324 mg (38 mg iron) tablet 324 mg PO BID (DME) blood sugar diagnostic Strip See Rx Instructions Not Applicable TID Qty: 10 Rx Instructions: As directed (DME) lancets 28 gauge misc See Rx Instructions topical TID Qty: 100 Rx Instructions: As directed albuterol sulfate 90 mcg/actuation HFA aerosol inhaler 2 puff inhalation Q4H PRN (Reason: wheezing) Premarin 0.625 mg/gram cream vaginal DAILY Trulicity 1.5 mg/0.5 mL pen injector subcut Jardiance 25 mg tablet 25 mg PO DAILY Dupixent Pen 300 mg/2 mL pen injector subcut zafirlukast 20 mg tablet 20 mg PO BID fluticasone furoate-vilanterol [Breo Ellipta] 200-25 mcg/dose blister with device 1 ea inhalation DAILY estradiol 0.025 mg/24 hr patch weekly 1 patch transdermal QWEEK
[2023-05-15] MEDS: Ketorolac Tromethamine 15 MG/ML VIAL IVPUSH (07:48)
[2023-05-15] MEDS: ondansetron HCL 4 MG/2 ML VIAL IVPUSH ×3 (07:48→21:18)
[2023-05-15] MEDS: 0.9 % Sodium Chloride 1,000 ML 999 ML IV (07:48)
--- NOTE | 2023-05-15 08:01 | PC.NURSE ---
IV placed for medications/CT, provider at bedside for exam, pt visually uncomfortable during exam. Pt aware she needs to give urine sample, cup at bedside, pt instructed to ring to get up for BR, or if pain is unrelieved
[2023-05-15] MEDS: iohexoL 350 MG/ML 100 ML INFUS..BTL IV (08:17)
[2023-05-15 09:46] VITALS: RESP 16
[2023-05-15] MEDS: fentaNYL citrate/PF 100 MCG/2 ML VIAL 50 MCG IVPUSH (09:46)
--- NOTE | 2023-05-15 13:18 | P.HPGS_ITS ---
History of Present Illness History of Present Illness Date of Service: 05/21/23 Chief complaint: abdominal pain Narrative: Pati Rawls is a 62 year old female here in the emergency room because of abdominal pain. This started last night and had persisted. She describes this is mostly diffuse. She also had 2 episodes of vomiting earlier with the last 1 at around 05:00 o'clock in the morning She says her pain has improved significantly since she has been in the ER She has had not had anymore vomiting She has a history of emergency Roxy's procedure as an ileostomy in the distant past for diverticulitis. She also had reversal of the ileostomy eventually. She describes being able to pass gas She was admitted to the hospital in 2020 because of what appeared to be recurrent diverticulitis just proximal to the anastomotic line. She denies any fever or chills. Review of Systems Constitutional: Constitutional: Denies chills and Denies fever(s) Cardiovascular: Cardiovascular: Denies chest pain, Denies dyspnea and Denies dyspnea on exertion Respiratory: Respiratory: Denies cough, Denies dyspnea and Denies dyspnea on exertion Gastrointestinal: Gastrointestinal: Denies hematochezia and Denies change in bowel habits Genitourinary: Genitourinary: Denies hematuria Musculoskeletal: Musculoskeletal: Denies back pain and Denies limited range of motion Neurologic: Denies focal weakness and Denies convulsions Psychiatric: Psychiatric: Denies depression and Denies mood swings [facility] Past Medical History Medical History Morbid obesity due to excess calories Incisional hernia UTI (urinary tract infection) Chronic back pain Diverticulitis Diverticulitis History of diverticulitis SIRS (systemic inflammatory response syndrome) Abdominal pain Asthma Depression Migraines Diabetes 1.5, managed as type 2 HTN (hypertension) Family History Family History Father Cancer Surgical History Surgical History Hx of hand surgery Hx of colonoscopy History of esophagogastroduodenoscopy (EGD) History of partial colectomy History of hysterectomy History of cholecystectomy Social History Social History Household Members: Spouse Housing: Apartment Do you presently have visiting nurse or other home services: No Alcohol intake: never Comment: Pt. sleeping Patient Tobacco Use Status: Never used Tobacco e-Cigarette/Vaping Use: Never Used Second Hand Smoke Exposure: Yes Advance Directives Date on File: 10/02/20 service: No Current occupational status: disabled Meds Allergies Allergy/AdvReac Type Severity Reaction Status Date / Time Penicillins [PENICILLINS] Allergy Severe RASH Verified 05/15/23 06:06 acetaminophen [From Tylenol] Allergy Mild Unknown Verified 05/15/23 06:06 gabapentin [GABAPENTIN] Allergy Mild ABD PAIN Verified 05/15/23 06:06 esomeprazole [Nexium] Allergy Unknown rash Verified 05/15/23 06:06 famotidine [From PEPCID] Allergy Unknown UPSET Verified 05/15/23 06:06 STOMACH lansoprazole [Prevacid] Allergy Unknown rash Verified 05/15/23 06:06 penicillin V Allergy Unknown stomach Verified 05/15/23 06:06 pains tramadol Allergy Hives Verified 05/15/23 06:06 morphine AdvReac Headache Verified 05/15/23 06:06 From NEXIUM Allergy Unknown RASH Uncoded 05/15/23 06:06 Home Medications Medication Instructions Recorded Confirmed Last Taken Type atorvastatin 20 mg tablet 1 tab PO DAILY 04/17/20 05/15/23 11/07/20 History calcium carbonate 600 mg-vitamin 1 tab PO BID 04/17/20 05/15/23 11/07/20 History D3 10 mcg (400 unit) tablet levocetirizine 5 mg tablet 1 tab PO BEDTIME 04/17/20 05/15/23 11/07/20 History sumatriptan succinate 100 mg tablet 100 mg PO DAILY MRX1 PRN Migraine 04/17/20 05/15/23 04/15/20 History Headache blood sugar diagnostic #10 ea 09/28/20 09/04/22 Unknown History lancets 28 gauge #100 ea 09/28/20 09/04/22 Unknown History albuterol sulfate 90 mcg/actuation 2 puff inhalation Q4H PRN wheezing 10/09/20 05/15/23 11/07/20 History aerosol inhaler lisinopril 2.5 mg tablet 2.5 mg PO DAILY 11/07/20 05/15/23 11/07/20 History aspirin 81 mg tablet,delayed 81 mg PO DAILY 12/11/20 05/15/23 Unknown History release budesonide 180 mcg/actuation 1 puff PO BID 12/11/20 05/15/23 Unknown History breath activated powder inhaler (Pulmicort Flexhaler) brnntmwxvv-zetbjng-aymrweix 50 1 cap PO Q6H PRN Headache 12/11/20 05/15/23 Unknown History mg-325 mg-40 mg capsule cromolyn 4 % eye drops 1 drp ophthalmic (eye) QID 12/11/20 05/15/23 Unknown History nystatin 100,000 unit/gram topical 1 appl topical BID 12/11/20 05/15/23 Unknown History powder tiotropium bromide 2.5 2 puff inhalation DAILY 12/11/20 05/15/23 Unknown History mcg/actuation mist for inhalation (Spiriva Respimat) tizanidine 4 mg tablet 1 tab PO Q8H 12/11/20 05/15/23 Unknown History zolpidem 10 mg tablet 10 mg PO BEDTIME PRN insomnia 01/04/21 05/15/23 Unknown History bupropion HCl 300 mg 24 hr tablet, 300 mg PO DAILY 07/18/21 05/15/23 Unknown History extended release lorazepam 0.5 mg tablet 0.5 mg PO BID PRN Anxiety 07/18/21 05/15/23 Unknown History ferrous gluconate 324 mg (38 mg 324 mg PO BID 07/29/21 05/15/23 Unknown History iron) tablet sucralfate 100 mg/mL oral 5 ml PO QID 07/29/21 05/15/23 Unknown History suspension (Carafate) dupilumab 300 mg/2 mL subcutaneous 300 mg subcut Q2W 07/11/22 05/15/23 Unknown History pen injector (Dupixent) zafirlukast 20 mg tablet 20 mg PO BID 07/11/22 05/15/23 Unknown History fluticasone furoate 200 1 ea inhalation DAILY 08/04/22 05/15/23 Unknown History mcg-vilanterol 25 mcg/dose inhalation powder (Breo Ellipta) conjugated estrogens 0.625 mg/gram 0.625 mg vaginal DAILY 01/22/23 05/15/23 Unknown History vaginal cream (Premarin) dulaglutide 1.5 mg/0.5 mL 1.5 mg subcut Q7D 01/22/23 05/15/23 Unknown History subcutaneous pen injector (Trulicity) betamethasone dipropionate 0.05 % 1 appl topical DAILY 05/15/23 05/15/23 Unknown History topical cream cyanocobalamin (vitamin B-12) 1,000 mcg IM QMONTH 05/15/23 05/15/23 Unknown History 1,000 mcg/mL injection kit methylnaltrexone 150 mg tablet 150 mg PO TID 05/15/23 05/15/23 Unknown History (Relistor) triamcinolone acetonide 0.025 % 1 appl topical DAILY 05/15/23 05/15/23 Unknown History topical cream Physical Exam Vital Signs: Vital Signs: Last Vital Signs Temp 98.2 F 05/15/23 06:06 Pulse 104 H 05/15/23 06:06 Resp 16 05/15/23 09:46 BP 136/82 05/15/23 06:06 Pulse Ox 96 05/15/23 06:06 O2 Del Method Room Air 05/15/23 06:06 BMI result Body Mass Index 31.1 Results Results Labs: Short CBC 05/15/23 Range/Units 06:46 WBC 18.5 H (4.8-10.8) X10*3/uL Hgb 14.7 (12.0-16.0) g/dl Hct 43.0 (37.0-47.0) % Plt Count 284 (160-400) X10*3/uL BMP 05/15/23 06:46 Sodium 140 Potassium 4.2 Chloride 105 Carbon Dioxide 25 BUN 14 Creatinine 1.15 Calcium 9.8 D Liver Function 05/15/23 Range/Units 06:46 Total Bilirubin 0.4 (0.0-1.0) mg/dL AST 15 (5-31) U/L ALT 21 (0-31) U/L Alkaline Phosphatase 90 (39-117) U/L Albumin 4.3 (3.5-5.0) g/dL Abdomen CT scan report/results: report reviewed and image reviewed CT scan - pelvis: report reviewed and image reviewed Assessment and Plan (1) Abdominal pain: Qualifiers: Abdominal location: lower abdomen, unspecified Qualified Code(s): R10.30 - Lower abdominal pain, unspecified Status: Acute 62 year female with multiple abdominal surgeries in the past for diverticulitis, here in the ER because of the abdominal pain. I have reviewed her CAT scan. She has some dilated small bowel loops without any obvious lesions own. She has good amount of air distally. She is passing flatus. There was no other pathology Will ever. She has multiple abdominal hernias with bowel loops from her previous surgeries but none of these appeared to be obstructing, and are wide-mouth. There is no suggestion of recurrent diverticulitis Etiology of her abdominal pain is likely partial small-bowel obstruction. I am going to admit her. I will hold off on an NG tube placement as she has not vomiting Her abdominal exam is benign at this time. I will repeat her CBC tomorrow. She looks well and is not toxic looking. Quality Stroke Does the patient have a stroke diagnosis?: No VTE Prior VTE?: No VTE Risk Level:: Medical - moderate - high VTE Device Contraindication: N/A - Device Ordered VTE Drug Contraindication: N/A - Med Ordered Procedures Date of Service Date of Service: 05/21/23
[2023-05-15 14:18] VITALS: BP 120/67; PULSE 75; RESP 18; TEMP 37.1; O2SAT 96
[2023-05-15 15:04] VITALS: BMI 31.6
[2023-05-15] MEDS: HYDROmorphone HCl 0.5 MG/0.5 ML SYRINGE 0.25 MG IVPUSH (15:16)
[2023-05-15] MEDS: Heparin Sodium,Porcine 5,000 UNIT/ML VIAL 5000 UNIT SUBCUT ×2 (15:16→21:22)
[2023-05-15] MEDS: 0.9 % Sodium Chloride Flush 3 ML SYRINGE IVFLUSH ×2 (15:17→19:21)
[2023-05-15] MEDS: Lactated Ringers 1,000 ML 80 ML IVCONT (15:17)
[2023-05-15 15:51] LABS: Appearance Urine Clear; Color Urine Yellow; Glucose Urine UA 500 mg/dL (Negative); Leukocyte Esterase Urine Negative (Negative); Nitrite Urine Negative (Negative); Specific Gravity - Urine >= 1.030 (1.005-1.025); Urine Blood Negative (Negative); Urine Ketones Negative (Negative); Urine Protein Negative (Neg-Trace)
[2023-05-15 15:53] VITALS: BP 113/56; PULSE 58; RESP 17; TEMP 36.4; O2SAT 97
[2023-05-15] MEDS: HYDROmorphone HCl 0.5 MG/0.5 ML SYRINGE IVPUSH ×3 (17:09→21:58)
[2023-05-15 17:50] LABS: Glucose, Whole Blood 83 mg/dL (60-115)
--- NOTE | 2023-05-15 18:12 | PM.EVENT ---
Event Note Date of Service: 05/16/23 Event Note: states she still has abd pain and nausea although not as much abd renains soft, benign she looks comfortable bowel rest for now IVF follow labs Time Spent With Patient Time: Total time managing care of this patient today ____ minutes.
--- NOTE | 2023-05-15 18:56 | PHA.MEDREC ---
Pharmacy Consult ? Medication Reconciliation Pharmacy has completed the medication reconciliation. Patient had list with her
[2023-05-15] MEDS: Butalb/Acetamin/Caff 50/325/40 TABLET 1 TAB PO (19:20)
--- NOTE | 2023-05-15 19:36 | HO.PM.IMCN ---
History of Present Illness Data of Consult Service Date: 05/15/23 Primary Care Provider: Cooper Adam MD HPI Reason for consult: Medical management Patient is a 62-year-old female with PMH significant for kar-hnoouhb-xejcknfaf diabetes type 2, moderate persistent asthma, hx of diverticulitis with abscess sigmoid resection, and ileostomy now reversed, migraines, GERD, HTN, and HLD who initially presented to the ED due to severe lower left-sided abdominal pain that started last night. Patient was admitted to the hospital under general surgery surfaces for treatment and evaluation of likely partial small bowel obstruction. Hospitalist consult for medical management. Patient is being treated conservatively at the moment with bowel rest. No NGT has been placed as patient is currently not vomiting and is passing gas. No bowel movement yet. Pt states pain is now better controlled since medication increase. Has had some nausea but no vomiting. Denies fever, chills. No SOB. Review of Systems Review of Systems: Mild nausea, no vomiting Lower abdominal pain that wraps around to back Passing gas, no bowel movement yet Denies fever, chills No shortness a breath Denies chest pain/pressure, palpitations PMFSH Medical History Morbid obesity due to excess calories Incisional hernia UTI (urinary tract infection) Chronic back pain Diverticulitis Diverticulitis History of diverticulitis SIRS (systemic inflammatory response syndrome) Abdominal pain Asthma Depression Migraines Diabetes 1.5, managed as type 2 HTN (hypertension) Family History Father Cancer Surgical History Hx of hand surgery Hx of colonoscopy History of esophagogastroduodenoscopy (EGD) History of partial colectomy History of hysterectomy History of cholecystectomy Social History Household Members: Spouse Housing: Apartment Do you presently have visiting nurse or other home services: No Alcohol intake: never Comment: Pt. sleeping Patient Tobacco Use Status: Never used Tobacco e-Cigarette/Vaping Use: Never Used Second Hand Smoke Exposure: Yes Use of substances other than those prescribed or required for medical reasons: No Have you been hit, kicked, punched, or otherwise hurt by someone within the past year? If so, by whom?: No Do you feel safe in your current relationship?: Yes Is there a partner from a previous relationship who is making you feel unsafe now?: No Are you made to feel afraid or neglected: No Advance Directives: Yes Advance Directives on File: Yes Advance Directives Date on File: 10/02/20 Do you have thoughts of harming others: None Do you have a plan to hurt others: No Plan Recently lost weight without trying: No How much weight loss: Not applicable Eating poorly because of decreased appetite: No Nutrition screen score: 0 Nutrition Risks: No Nutritional Risk Patient : No Poor oral hygiene: No service: No Current occupational status: disabled Meds Allergies Allergy/AdvReac Type Severity Reaction Status Date / Time Penicillins [PENICILLINS] Allergy Severe RASH Verified 05/15/23 06:06 acetaminophen [From Tylenol] Allergy Mild Unknown Verified 05/15/23 06:06 gabapentin [GABAPENTIN] Allergy Mild ABD PAIN Verified 05/15/23 06:06 esomeprazole [Nexium] Allergy Unknown rash Verified 05/15/23 06:06 famotidine [From PEPCID] Allergy Unknown UPSET Verified 05/15/23 06:06 STOMACH lansoprazole [Prevacid] Allergy Unknown rash Verified 05/15/23 06:06 penicillin V Allergy Unknown stomach Verified 05/15/23 06:06 pains tramadol Allergy Hives Verified 05/15/23 06:06 morphine AdvReac Headache Verified 05/15/23 06:06 From NEXIUM Allergy Unknown RASH Uncoded 05/15/23 06:06 Active Medications: Current Medications Acetaminophen/Butalbital/Caffeine (Butalb/Acetamin/Caff 50/325/40 Tablet) 1 tab PO Q6H PRN PRN Reason: Headache Last Admin: 05/15/23 19:20 Dose: 1 tab Albuterol Sulfate (Albuterol Sulfate 90 Mcg 8 Gm Inhaler) 2 puff INHALE Q4H PRN PRN Reason: wheezing Budesonide (Budesonide 180 Mcg Aer.Pow.Ba) 1 puff INHALE RBID [facility] Bupropion HCl (Bupropion Hcl Xl 300 Mg Tab.Er.24h) 300 mg PO DAILY [facility] Fluticasone/Vilanterol (Fluticasone/Vilanterol 200/25 Blst.W.Dev) 1 puff INHALE RDAILY [facility] Glucose (Glucose Gel 15 Gm Gel..Gram.) 15 gm PO Q15M PRN PRN Reason: per Hypoglycemia Standing Ord. Heparin Sodium (Porcine) (Heparin Sodium,Porcine 5,000 Unit/Ml Vial) 5,000 unit SUBCUT Q8H [facility] Last Admin: 05/15/23 15:16 Dose: 5,000 unit Hydromorphone HCl (Hydromorphone Hcl 0.5 Mg/0.5 Ml Syringe) 0.25 mg IVPUSH Q3H PRN; Protocol PRN Reason: pain, severe Last Admin: 05/15/23 15:16 Dose: 0.25 mg Hydromorphone HCl (Hydromorphone Hcl 0.5 Mg/0.5 Ml Syringe) 0.5 mg IVPUSH Q2H PRN; Protocol PRN Reason: Pain, Severe (Pain Scale 7-10) Last Admin: 05/15/23 19:21 Dose: 0.5 mg Lactated Ringer's (Lr) 1,000 mls @ 80 mls/hr IVCONT .[id number] [facility] Last Admin: 05/15/23 15:17 Dose: 80 mls/hr Lisinopril (Lisinopril 2.5 Mg Tablet) 2.5 mg PO DAILY [facility]; Protocol Non-Formulary Medication (Cromolyn) 1 drop EYE-BOTH QID [facility] Non-Formulary Medication (Levocetirizine) 1 tab PO BEDTIME [facility] Omeprazole (Omeprazole 40 Mg Capsule.Dr) 40 mg PO BID@0630,1630 [facility] Ondansetron HCl (Ondansetron Hcl 4 Mg/2 Ml Vial) 4 mg IVPUSH Q6H PRN PRN Reason: nausea Last Admin: 05/15/23 15:16 Dose: 4 mg Sodium Chloride (0.9 % Sodium Chloride Flush 3 Ml Syringe) 3 ml IVFLUSH QSHIFT [facility] Last Admin: 05/15/23 19:21 Dose: 3 ml Tiotropium [place] (Tiotropium [place] 2.5 Mcg 1 Puff/2.5 Mcg Mist.Inhal) 2 puff INHALE RDAILY [facility] Tizanidine HCl (Tizanidine Hcl 4 Mg Tablet) 4 mg PO TID [facility] Home Medications Medication Instructions Recorded Confirmed Last Taken Type atorvastatin 20 mg tablet 1 tab PO DAILY 12/22/20 01/19/24 07/14/21 History calcium carbonate 600 mg-vitamin 1 tab PO BID 04/17/20 05/15/23 11/07/20 History D3 10 mcg (400 unit) tablet levocetirizine 5 mg tablet 1 tab PO BEDTIME 04/17/20 05/15/23 11/07/20 History sumatriptan succinate 100 mg tablet 100 mg PO DAILY MRX1 PRN Migraine 04/17/20 05/15/23 04/15/20 History Headache blood sugar diagnostic #10 ea 09/28/20 09/04/22 Unknown History lancets 28 gauge #100 ea 09/28/20 09/04/22 Unknown History albuterol sulfate 90 mcg/actuation 2 puff inhalation Q4H PRN wheezing 10/09/20 05/15/23 11/07/20 History aerosol inhaler lisinopril 2.5 mg tablet 2.5 mg PO DAILY 11/07/20 05/15/23 11/07/20 History aspirin 81 mg tablet,delayed 81 mg PO DAILY 12/11/20 05/15/23 Unknown History release budesonide 180 mcg/actuation 1 puff PO BID 12/11/20 05/15/23 Unknown History breath activated powder inhaler (Pulmicort Flexhaler) ppxmsifyjo-lqfjvkx-ymutbtmi 50 1 cap PO Q6H PRN Headache 12/11/20 05/15/23 Unknown History mg-325 mg-40 mg capsule cromolyn 4 % eye drops 1 drp ophthalmic (eye) QID 12/11/20 05/15/23 Unknown History nystatin 100,000 unit/gram topical 1 appl topical BID 12/11/20 05/15/23 Unknown History powder tiotropium bromide 2.5 2 puff inhalation DAILY 12/11/20 05/15/23 Unknown History mcg/actuation mist for inhalation (Spiriva Respimat) tizanidine 4 mg tablet 1 tab PO Q8H 12/11/20 05/15/23 Unknown History zolpidem 10 mg tablet 10 mg PO BEDTIME PRN insomnia 01/04/21 05/15/23 Unknown History bupropion HCl 300 mg 24 hr tablet, 300 mg PO DAILY 07/18/21 05/15/23 Unknown History extended release lorazepam 0.5 mg tablet 0.5 mg PO BID PRN Anxiety 07/18/21 05/15/23 Unknown History ferrous gluconate 324 mg (38 mg 324 mg PO BID 07/29/21 05/15/23 Unknown History iron) tablet sucralfate 100 mg/mL oral 5 ml PO QID 07/29/21 05/15/23 Unknown History suspension (Carafate) dupilumab 300 mg/2 mL subcutaneous 300 mg subcut Q2W 07/11/22 05/15/23 Unknown History pen injector (Dupixent) zafirlukast 20 mg tablet 20 mg PO BID 07/11/22 05/15/23 Unknown History fluticasone furoate 200 1 ea inhalation DAILY 08/04/22 05/15/23 Unknown History mcg-vilanterol 25 mcg/dose inhalation powder (Breo Ellipta) conjugated estrogens 0.625 mg/gram 0.625 mg vaginal DAILY 01/22/23 05/15/23 Unknown History vaginal cream (Premarin) dulaglutide 1.5 mg/0.5 mL 1.5 mg subcut Q7D 01/22/23 05/15/23 Unknown History subcutaneous pen injector (Trulicity) betamethasone dipropionate 0.05 % 1 appl topical DAILY 05/15/23 05/15/23 Unknown History topical cream cyanocobalamin (vitamin B-12) 1,000 mcg IM QMONTH 05/15/23 05/15/23 Unknown History 1,000 mcg/mL injection kit methylnaltrexone 150 mg tablet 150 mg PO TID 05/15/23 05/15/23 Unknown History (Relistor) triamcinolone acetonide 0.025 % 1 appl topical DAILY 05/15/23 05/15/23 Unknown History topical cream Physical Exam Vital Signs and Narrative: Vital Signs: Last Vital Signs Temp 97.5 F 05/15/23 15:53 Pulse 58 05/15/23 15:53 Resp 17 05/15/23 15:53 BP 113/56 L 05/15/23 15:53 Pulse Ox 97 05/15/23 15:53 O2 Del Method Room Air 05/15/23 15:53 BMI result Body Mass Index 31.6 General: AOx3, no acute distress Resp: CTA bilaterally CVS: S1, S2, RRR GI: +BS, no distention, diffuse lower abdominal tenderness, worse in LLQ Skin: Warm, dry Neuro: Cranial nerves II-XII grossly intact bilaterally. Motor grossly intact bilaterally Extremities: No edema Psych: Appropriate affect Results Labs 05/15/23 06:46 05/15/23 06:46 Labs: Laboratory Results - last 24 hr 05/15/23 05/15/23 05/15/23 06:46 15:40 17:45 MCV 92.9 MCH 31.7 MCHC 34.2 RDW 12.5 Plt Count 284 MPV 10.6 Immature Gran % (Auto) 0.4 Neut % (Auto) 81.2 H Lymph % (Auto) 10.5 L Martin % (Auto) 5.8 Eos % (Auto) 1.8 Baso % (Auto) 0.3 Lymph # (Auto) 2.0 Martin # (Auto) 1.1 Eos # (Auto) 0.3 Baso # (Auto) 0.1 Abs Immat Gran (auto) 0.08 H Absolute Neuts (auto) 15.0 H Absolute Nucleated RBC 0.000 Nucleated RBC % (auto) 0.0 Anion Gap 14 Estim Creat Clear Calc 51.3 Estimated GFR 48 POC Glucose 83 Random Glucose 181 H Calcium 9.8 D Total Bilirubin 0.4 AST 15 ALT 21 Alkaline Phosphatase 90 Total Protein 8.0 Albumin 4.3 Urine Color Yellow Urine Appearance Clear Urine pH 7.0 Ur Specific [place] >= 1.030 H Urine Protein Negative Urine Glucose (UA) 500 H Urine Ketones Negative Urine Blood Negative Urine Nitrite Negative Ur Leukocyte Esterase Negative Imaging Radiologist's Impressions: Impressions Abdomen/Pelvis CT 05/15/23 08:18 IMPRESSION: Multiple abdominal hernias as described in detail above. The right-sided spigelian hernia appears reduced on the current study. New dilatation/distention of mid to distal small bowel loops measuring up to 3 cm with fecalization. No transition point. No focal bowel wall thickening. Advise clinical correlation for partial small bowel obstruction. Assessment and Plan (1) Partial small bowel obstruction: Status: Acute Plan Patient is a 62-year-old female with PMH significant for fse-bmhuocb-ytcfbbldu diabetes type 2, moderate persistent asthma, hx of diverticulitis with abscess sigmoid resection, and ileostomy now reversed, migraines, GERD, HTN, and HLD who initially presented to the ED due to severe lower left-sided abdominal pain that started last night. Patient was admitted to the hospital under general surgery surfaces for treatment and evaluation of likely partial small bowel obstruction. Hospitalist consult for medical management. Partial small bowel obstruction Plan as per General Surgery Lam-utwezsu-nojhdhlmf diabetes type [address] on sliding scale insulin Diabetic diet once no longer NPO Moderate persistent asthma Not in acute exacerbation Continue home inhalers HTN Continue lisinopril HLD Continue statin Hold aspirin Migraine headaches Hold txuugcuyly-oaawmgl-jyjpggoy Continue sumatriptan p.r.n. GERD Continue omeprazole Mood disorder Continue home meds Attending: Dr. Lopez Pt appears quite stable from a medical standpoint. Will sign off for now. Thank you for allowing us to take care of this patient with you, and please re-consult if anything acute arises.
[2023-05-15] MEDS: TiZANidine HCL 4 MG TABLET PO (21:26)
[2023-05-15] MEDS: Zolpidem Tartrate 5 MG TABLET PO (22:01)
[2023-05-15 23:38] VITALS: BP 92/54; PULSE 59; RESP 18; TEMP 36.2; O2SAT 92
[2023-05-15 23:58] LABS: Glucose, Whole Blood 122 mg/dL (60-115)
[2023-05-16] VITALS (7 sets, daily range): BP systolic 80–125; BP diastolic 50–69; PULSE 60–72; RESP 18–20; TEMP 36.9–37.1; O2SAT 93–95
--- NOTE | 2023-05-16 00:11 | PC.NURSE ---
Addendum entered by Laurie Quinones 05/16/23 05:55: Pt's BP after IV bolus went up to 98/60 manually. MD Lopez made aware of the new BP. No new orders were given. Will continue to monitor pt's BP. Addendum entered by Laurie Quinones 05/16/23 02:05: Pt c/o of 10/10 abdominal pain, this RN rechecked BP due to being low earlier in shift, BP 80/50 manually, pt asymmetric. MD Lopez notified of the decreased BP. One time dose of IV bolus was ordered per JUN. Will recheck pt's BP after IV bolus is complete. Original Note: Pt has low BP 92/54, asymptomatic, POC 122. MD Lopez made aware of the pt's low BP. Per MD Lopez hold AM Lisinopril for 05/16/23. Will continue to monitor pt's BP.
[2023-05-16] MEDS: 0.9 % Sodium Chloride 500 ML IV (01:35)
[2023-05-16] MEDS: HYDROmorphone HCl 0.5 MG/0.5 ML SYRINGE 0.25 MG IVPUSH ×4 (02:52→21:36)
[2023-05-16] MEDS: Lactated Ringers 1,000 ML 80 ML IVCONT ×2 (04:59→13:58)
[2023-05-16] MEDS: Heparin Sodium,Porcine 5,000 UNIT/ML VIAL 5000 UNIT SUBCUT ×3 (05:35→21:34)
[2023-05-16] MEDS: ondansetron HCL 4 MG/2 ML VIAL IVPUSH ×3 (05:50→22:54)
[2023-05-16 05:52] LABS: Hematocrit 35.6 % (37.0-47.0); Hemoglobin 12.1 g/dl (12.0-16.0); Mean Corpuscular Hemoglobin 31.8 pg (27.0-33.0); Mean Corpuscular Volume 93.7 fL (80.0-98.0); Mean Platelet Volume 10.5 fL (9.4-12.3); Platelet Count 221 X10*3/uL (160-400); Red Cell Distribution Width 12.4 % (11.0-16.0); White Blood Count 9.3 X10*3/uL (4.8-10.8)
[2023-05-16 06:07] LABS: Anion Gap 12 (12-20); Blood Urea Nitrogen 12 mg/dL (9-16); Calcium 8.3 mg/dL (8.4-10.2); Carbon Dioxide 23 mmol/L (22-29); Chloride 108 mmol/L (96-108); Creatinine Clr Calc Pharmacy 78.3; Estimated Glomerular Filt Rate > 60; Glucose Random 112 mg/dL (60-115); Potassium 3.9 mmol/L (3.3-5.1); Sodium 139 mmol/L (135-145)
[2023-05-16 07:43] LABS: Glucose, Whole Blood 121 mg/dL (60-115)
[2023-05-16] MEDS: Fluticasone/Vilanterol 200/25 BLST.W.DEV 1 PUFF INHALE (08:02)
[2023-05-16] MEDS: Tiotropium Bromide 2.5 mcg 1 PUFF/2.5 MCG MIST.INHAL 2 PUFF INHALE (08:02)
[2023-05-16] MEDS: Budesonide 180 MCG AER.POW.BA 1 PUFF INHALE ×2 (08:02→19:17)
[2023-05-16] MEDS: Triamcinolone Acet 0.5 % Cream 15 GM TUBE 1 APPL TOPICAL (08:26)
[2023-05-16] MEDS: 0.9 % Sodium Chloride Flush 3 ML SYRINGE IVFLUSH (08:26)
[2023-05-16] MEDS: SUMAtriptan succinate 100 MG TABLET PO (08:40)
--- NOTE | 2023-05-16 08:53 | MHC.CM.PN ---
IMM DELIVERED. PATIENT IS FROM HOME W/ PARTNER. FUNCTIONALLY INDEPENDENT. HAS A NEBULIZER, SUPPLIES THROUGH [employer]. USES CANE PRN FOR HIP PAIN, HAS NOT HAD TO USE RECENTLY. PCP: JINNY PHILIP MD HCP: OPAL POWELL, PARTNER. ON FILE AND VERIFIED. DP: GOAL IS HOME SELF CARE. PARTNER TO TRANSPORT. CM WILL CONTINUE TO FOLLOW.
--- NOTE | 2023-05-16 09:21 | PM.PNGS ---
Subjective Subjective Date of Service: 05/16/23 Interval history: says she had episodes of pain overnight had good BMs, flatus this AM no vomitting today Physical Exam Vital Signs: Vital Signs: Last Vital Signs Temp 98.7 F 05/16/23 07:28 Pulse 72 05/16/23 08:06 Resp 18 05/16/23 08:06 BP 103/59 L 05/16/23 07:28 Pulse Ox 94 05/16/23 07:28 O2 Del Method Room Air 05/16/23 07:28 BMI result Body Mass Index 31.6 Const: Other: looks comfortable General: comfortable and no acute distress Resp: Effort & Inspection: normal respiratory effort Cardio: Rate: regular rate GI: Palpation (GI): Soft to palpation, not firm, Tenderness to palpation present (GI) (mild diffuse tenderness) and no guarding Objective Data Active Medications Acetaminophen/Butalbital/Caffeine (Butalb/Acetamin/Caff 50/325/40 Tablet) 1 tab PO Q6H PRN PRN Reason: Headache Last Admin: 05/15/23 19:20 Dose: 1 tab Documented By: NISA Albuterol Sulfate (Albuterol Sulfate 90 Mcg 8 Gm Inhaler) 2 puff INHALE Q4H PRN PRN Reason: wheezing Budesonide (Budesonide 180 Mcg Aer.Pow.Ba) 1 puff INHALE RBID [facility] Last Admin: 05/16/23 08:02 Dose: 1 puff Documented By: MARY Bupropion HCl (Bupropion Hcl Xl 300 Mg Tab.Er.24h) 300 mg PO DAILY [facility] Last Admin: 05/16/23 08:27 Dose: Not Given Documented By: LISSETH Non-Admin Reason: Patient Refused Cyanocobalamin (Cyanocobalamin (Vitamin B-12) 1,000 Mcg/Ml Vial) 1,000 mcg IM Q30D [facility] Dextrose (Dextrose 50 % 25 Gm/50 Ml Syringe) 25 gm IVPUSH Q15M PRN; Protocol PRN Reason: per Hypoglycemia Standing Ord. Fluticasone/Vilanterol (Fluticasone/Vilanterol 200/25 Blst.W.Dev) 1 puff INHALE RDAILY [facility] Last Admin: 05/16/23 08:02 Dose: 1 puff Documented By: HO.BRESNE Glucose (Glucose Gel 15 Gm Gel..Gram.) 15 gm PO Q15M PRN; Protocol PRN Reason: per Hypoglycemia Standing Ord. Heparin Sodium (Porcine) (Heparin Sodium,Porcine 5,000 Unit/Ml Vial) 5,000 unit SUBCUT Q8H [facility] Last Admin: 05/16/23 05:35 Dose: 5,000 unit Documented By: NISA Hydromorphone HCl (Hydromorphone Hcl 0.5 Mg/0.5 Ml Syringe) 0.25 mg IVPUSH Q3H PRN; Protocol PRN Reason: pain, severe Last Admin: 05/16/23 08:25 Dose: 0.25 mg Documented By: LISSETH Hydromorphone HCl (Hydromorphone Hcl 0.5 Mg/0.5 Ml Syringe) 0.5 mg IVPUSH Q2H PRN; Protocol PRN Reason: Pain, Severe (Pain Scale 7-10) Last Admin: 05/15/23 21:58 Dose: 0.5 mg Documented By: NISA Lactated Ringer's (Lr) 1,000 mls @ 80 mls/hr IVCONT .[id number] [facility] Last Admin: 05/16/23 04:59 Dose: 80 mls/hr Documented By: NISA Insulin Human Lispro (Insulin Lispro 100 Unit/Ml 3 Ml Vial) 0 unit SUBCUT QIDACHS [facility]; Protocol Last Admin: 05/16/23 07:46 Dose: Not Given Documented By: LISSETH Non-Admin Reason: No Insulin Coverage Non-Formulary Medication (Cromolyn) 1 drop EYE-BOTH QID [facility] Non-Formulary Medication (Levocetirizine) 1 tab PO BEDTIME [facility] Omeprazole (Omeprazole 40 Mg Capsule.Dr) 40 mg PO BID@0630,1630 [facility] Last Admin: 05/16/23 05:37 Dose: Not Given Documented By: NISA Non-Admin Reason: Nausea Ondansetron HCl (Ondansetron Hcl 4 Mg/2 Ml Vial) 4 mg IVPUSH Q6H PRN PRN Reason: nausea Last Admin: 05/16/23 05:50 Dose: 4 mg Documented By: NISA Sodium Chloride (0.9 % Sodium Chloride Flush 3 Ml Syringe) 3 ml IVFLUSH QSHIFT [facility] Last Admin: 05/16/23 08:26 Dose: 3 ml Documented By: LISSETH Sumatriptan Succinate (Sumatriptan Succinate 100 Mg Tablet) 100 mg PO DAILY MRX1 PRN PRN Reason: Migraine Headache Last Admin: 05/16/23 08:40 Dose: 100 mg Documented By: LISSETH Tiotropium [place] (Tiotropium [place] 2.5 Mcg 1 Puff/2.5 Mcg Mist.Inhal) 2 puff INHALE RDAILY [facility] Last Admin: 05/16/23 08:02 Dose: 2 puff Documented By: MARY Tizanidine HCl (Tizanidine Hcl 4 Mg Tablet) 4 mg PO TID [facility] Last Admin: 05/16/23 08:27 Dose: Not Given Documented By: LISSETH Non-Admin Reason: Patient Refused Triamcinolone Acetonide (Triamcinolone Acet 0.5 % Cream 15 Gm Tube) 1 appl TOPICAL DAILY [facility] Last Admin: 05/16/23 08:26 Dose: 1 appl Documented By: LISSETH Zolpidem Tartrate (Zolpidem Tartrate 5 Mg Tablet) 5 mg PO BEDTIME PRN PRN Reason: Insomnia Last Admin: 05/15/23 22:01 Dose: 5 mg Documented By: NISA Labs 05/16/23 05:40 05/16/23 05:40 Labs: Laboratory Results - last 24 hr 05/15/23 05/15/23 05/15/23 15:40 17:45 23:54 MCV MCH MCHC RDW Plt Count MPV Absolute Nucleated RBC Nucleated RBC % (auto) Anion Gap Estim Creat Clear Calc Estimated GFR POC Glucose 83 122 H Random Glucose Calcium Urine Color Yellow Urine Appearance Clear Urine pH 7.0 Ur Specific [place] >= 1.030 H Urine Protein Negative Urine Glucose (UA) 500 H Urine Ketones Negative Urine Blood Negative Urine Nitrite Negative Ur Leukocyte Esterase Negative 05/16/23 05/16/23 05:40 07:31 MCV 93.7 MCH 31.8 MCHC 34.0 RDW 12.4 Plt Count 221 MPV 10.5 Absolute Nucleated RBC 0.000 Nucleated RBC % (auto) 0.0 Anion Gap 12 Estim Creat Clear Calc 78.3 Estimated GFR > 60 POC Glucose 121 H Random Glucose 112 Calcium 8.3 L D Urine Color Urine Appearance Urine pH Ur Specific [place] Urine Protein Urine Glucose (UA) Urine Ketones Urine Blood Urine Nitrite Ur Leukocyte Esterase Procedures Date of Service Date of Service: 05/16/23 Progress Note: A&P Assessment and plan (1) Partial small bowel obstruction: Status: Acute Assessment and Plan: some crampy abdl pain, asking for pain meds will keep on sips of clears only for now for bowel rest passing flatus labs ok exam benign she does have multiple hernias from her previous surgeries - not obstructing at this time, chronic but may be symmptomativ Time Spent With Patient Time: Total time managing care of this patient today ____ minutes. Quality Stroke Does the patient have a stroke diagnosis?: No VTE Prior VTE?: No VTE Risk Level:: Medical - moderate - high VTE Device Contraindication: N/A - Device Ordered VTE Drug Contraindication: N/A - Med Ordered
[2023-05-16 11:09] LABS: Glucose, Whole Blood 99 mg/dL (60-115)
[2023-05-16] MEDS: buPROPion HCl XL 300 MG TAB.ER.24H PO (13:13)
[2023-05-16] MEDS: TiZANidine HCL 4 MG TABLET PO ×2 (13:13→21:30)
[2023-05-16] MEDS: Omeprazole 40 MG CAPSULE.DR PO ×2 (13:14→18:05)
[2023-05-16] MEDS: HYDROmorphone HCl 0.5 MG/0.5 ML SYRINGE IVPUSH ×2 (15:05→18:05)
[2023-05-16] MEDS: Butalb/Acetamin/Caff 50/325/40 TABLET 1 TAB PO (16:10)
[2023-05-16 16:15] LABS: Glucose, Whole Blood 115 mg/dL (60-115)
[2023-05-16 21:12] LABS: Glucose, Whole Blood 88 mg/dL (60-115)
[2023-05-16] MEDS: Zolpidem Tartrate 5 MG TABLET PO (21:33)
[2023-05-17] VITALS (7 sets, daily range): BP systolic 101–124; BP diastolic 50–67; PULSE 52–69; RESP 17–20; TEMP 36.1–37.1; O2SAT 90–97
[2023-05-17] MEDS: Lactated Ringers 1,000 ML 80 ML IVCONT ×2 (01:57→14:09)
[2023-05-17] MEDS: HYDROmorphone HCl 0.5 MG/0.5 ML SYRINGE 0.25 MG IVPUSH ×2 (02:05→06:01)
[2023-05-17] MEDS: ondansetron HCL 4 MG/2 ML VIAL IVPUSH ×2 (05:50→15:20)
[2023-05-17] MEDS: Heparin Sodium,Porcine 5,000 UNIT/ML VIAL 5000 UNIT SUBCUT ×3 (05:53→21:19)
[2023-05-17 07:56] LABS: Glucose, Whole Blood 100 mg/dL (60-115)
[2023-05-17] MEDS: SUMAtriptan succinate 100 MG TABLET PO (08:00)
[2023-05-17] MEDS: buPROPion HCl XL 300 MG TAB.ER.24H PO (08:00)
[2023-05-17] MEDS: Omeprazole 40 MG CAPSULE.DR PO ×2 (08:00→16:27)
[2023-05-17] MEDS: TiZANidine HCL 4 MG TABLET PO ×3 (08:01→21:18)
[2023-05-17] MEDS: Fluticasone/Vilanterol 200/25 BLST.W.DEV 1 PUFF INHALE (08:21)
[2023-05-17] MEDS: Budesonide 180 MCG AER.POW.BA 1 PUFF INHALE ×2 (08:21→19:51)
[2023-05-17] MEDS: Tiotropium Bromide 2.5 mcg 1 PUFF/2.5 MCG MIST.INHAL 2 PUFF INHALE (08:21)
[2023-05-17] MEDS: HYDROmorphone HCl 0.5 MG/0.5 ML SYRINGE IVPUSH ×6 (09:12→22:49)
[2023-05-17] MEDS: Triamcinolone Acet 0.5 % Cream 15 GM TUBE 1 APPL TOPICAL (09:15)
--- NOTE | 2023-05-17 09:57 | PM.PNGS ---
Subjective Subjective Date of Service: 05/17/23 Interval history: c/o pain around anus says this started after BM last night still has occasional abdominal pain, diffuse Physical Exam Vital Signs: Vital Signs: Last Vital Signs Temp 98 F 05/17/23 07:29 Pulse 59 05/17/23 08:24 Resp 18 05/17/23 08:24 BP 122/67 05/17/23 07:29 Pulse Ox 96 05/17/23 07:29 O2 Del Method Room Air 05/17/23 07:29 BMI result Body Mass Index 31.6 Const: General: comfortable and no acute distress Resp: Effort & Inspection: normal respiratory effort Cardio: Rate: regular rate GI: Other: mild diffuse tenderness digital rectal exam - mild tenderness psoterior anal canal, no fluctuance or induration, no blood Palpation (GI): Soft to palpation, not firm and no guarding Objective Data Active Medications Acetaminophen/Butalbital/Caffeine (Butalb/Acetamin/Caff 50/325/40 Tablet) 1 tab PO Q6H PRN PRN Reason: Headache Last Admin: 05/16/23 16:10 Dose: 1 tab Documented By: LISSETH Albuterol Sulfate (Albuterol Sulfate 90 Mcg 8 Gm Inhaler) 2 puff INHALE Q4H PRN PRN Reason: wheezing Budesonide (Budesonide 180 Mcg Aer.Pow.Ba) 1 puff INHALE RBID [facility] Last Admin: 05/17/23 08:21 Dose: 1 puff Documented By: MARY Bupropion HCl (Bupropion Hcl Xl 300 Mg Tab.Er.24h) 300 mg PO DAILY [facility] Last Admin: 05/17/23 08:00 Dose: 300 mg Documented By: LISSETH Cyanocobalamin (Cyanocobalamin (Vitamin B-12) 1,000 Mcg/Ml Vial) 1,000 mcg IM Q30D [facility] Dextrose (Dextrose 50 % 25 Gm/50 Ml Syringe) 25 gm IVPUSH Q15M PRN; Protocol PRN Reason: per Hypoglycemia Standing Ord. Fluticasone/Vilanterol (Fluticasone/Vilanterol 200/25 Blst.W.Dev) 1 puff INHALE RDAILY [facility] Last Admin: 05/17/23 08:21 Dose: 1 puff Documented By: HO.BRESNE Glucose (Glucose Gel 15 Gm Gel..Gram.) 15 gm PO Q15M PRN; Protocol PRN Reason: per Hypoglycemia Standing Ord. Heparin Sodium (Porcine) (Heparin Sodium,Porcine 5,000 Unit/Ml Vial) 5,000 unit SUBCUT Q8H [facility] Last Admin: 05/17/23 05:53 Dose: 5,000 unit Documented By: NISA Hydromorphone HCl (Hydromorphone Hcl 0.5 Mg/0.5 Ml Syringe) 0.25 mg IVPUSH Q3H PRN; Protocol PRN Reason: pain, severe Last Admin: 05/17/23 06:01 Dose: 0.25 mg Documented By: NISA Hydromorphone HCl (Hydromorphone Hcl 0.5 Mg/0.5 Ml Syringe) 0.5 mg IVPUSH Q2H PRN; Protocol PRN Reason: Pain, Severe (Pain Scale 7-10) Last Admin: 05/17/23 09:12 Dose: 0.5 mg Documented By: LISSETH Lactated Ringer's (Lr) 1,000 mls @ 80 mls/hr IVCONT .[id number] [facility] Last Admin: 05/17/23 04:09 Dose: Not Given Documented By: NISA Non-Admin Reason: IV Running Insulin Human Lispro (Insulin Lispro 100 Unit/Ml 3 Ml Vial) 0 unit SUBCUT QIDACHS [facility]; Protocol Last Admin: 05/17/23 08:01 Dose: Not Given Documented By: LISSETH Non-Admin Reason: No Insulin Coverage Non-Formulary Medication (Cromolyn) 1 drop EYE-BOTH QID [facility] Non-Formulary Medication (Levocetirizine) 1 tab PO BEDTIME [facility] Omeprazole (Omeprazole 40 Mg Capsule.Dr) 40 mg PO BID@0630,1630 [facility] Last Admin: 05/17/23 08:00 Dose: 40 mg Documented By: LISSETH Ondansetron HCl (Ondansetron Hcl 4 Mg/2 Ml Vial) 4 mg IVPUSH Q6H PRN PRN Reason: nausea Last Admin: 05/17/23 05:50 Dose: 4 mg Documented By: NISA Sodium Chloride (0.9 % Sodium Chloride Flush 3 Ml Syringe) 3 ml IVFLUSH QSHIFT [facility] Last Admin: 05/17/23 06:52 Dose: Not Given Documented By: LISSETH Non-Admin Reason: IV Running Sumatriptan Succinate (Sumatriptan Succinate 100 Mg Tablet) 100 mg PO DAILY MRX1 PRN PRN Reason: Migraine Headache Last Admin: 05/17/23 08:00 Dose: 100 mg Documented By: LISSETH Tiotropium [place] (Tiotropium [place] 2.5 Mcg 1 Puff/2.5 Mcg Mist.Inhal) 2 puff INHALE RDAILY [facility] Last Admin: 05/17/23 08:21 Dose: 2 puff Documented By: MARY Tizanidine HCl (Tizanidine Hcl 4 Mg Tablet) 4 mg PO TID [facility] Last Admin: 05/17/23 08:01 Dose: 4 mg Documented By: LISSETH Triamcinolone Acetonide (Triamcinolone Acet 0.5 % Cream 15 Gm Tube) 1 appl TOPICAL DAILY [facility] Last Admin: 05/17/23 09:15 Dose: 1 appl Documented By: LISSETH Zolpidem Tartrate (Zolpidem Tartrate 5 Mg Tablet) 5 mg PO BEDTIME PRN PRN Reason: Insomnia Last Admin: 05/16/23 21:33 Dose: 5 mg Documented By: NISA Labs 05/16/23 05:40 05/16/23 05:40 Labs: Laboratory Results - last 24 hr 05/16/23 05/16/23 05/16/23 11:03 16:05 21:09 POC Glucose 99 115 88 05/17/23 07:31 POC Glucose 100 Procedures Date of Service Date of Service: 05/17/23 Progress Note: A&P Assessment and plan (1) Partial small bowel obstruction: Status: Acute Assessment and Plan: passing flatus has BMs still with some abdl pain, diffuse may be due to her hernias exam benign rectal exam done does not show any abscess - pain may be from hemorrhoids clear liquid diet if she continues to have abdl pain, plan SB series OOB Time Spent With Patient Time: Total time managing care of this patient today ____ minutes. Quality Stroke Does the patient have a stroke diagnosis?: No VTE Prior VTE?: No VTE Risk Level:: Medical - moderate - high VTE Device Contraindication: N/A - Device Ordered VTE Drug Contraindication: N/A - Med Ordered
[2023-05-17 11:08] LABS: Glucose, Whole Blood 127 mg/dL (60-115)
[2023-05-17 16:10] LABS: Glucose, Whole Blood 101 mg/dL (60-115)
[2023-05-17] MEDS: Butalb/Acetamin/Caff 50/325/40 TABLET 1 TAB PO (16:27)
[2023-05-17 20:32] LABS: Glucose, Whole Blood 97 mg/dL (60-115)
[2023-05-17] MEDS: Zolpidem Tartrate 5 MG TABLET PO (21:43)
[2023-05-18] VITALS (7 sets, daily range): BP systolic 101–119; BP diastolic 53–62; PULSE 56–71; RESP 16–20; TEMP 36–36.8; O2SAT 96–98
[2023-05-18] MEDS: HYDROmorphone HCl 0.5 MG/0.5 ML SYRINGE IVPUSH ×8 (00:53→22:57)
[2023-05-18] MEDS: Lactated Ringers 1,000 ML 80 ML IVCONT ×2 (00:56→15:49)
[2023-05-18] MEDS: ondansetron HCL 4 MG/2 ML VIAL IVPUSH ×3 (01:59→14:22)
[2023-05-18] MEDS: Omeprazole 40 MG CAPSULE.DR PO ×2 (05:56→17:30)
[2023-05-18] MEDS: Heparin Sodium,Porcine 5,000 UNIT/ML VIAL 5000 UNIT SUBCUT ×3 (05:57→23:02)
[2023-05-18 06:29] LABS: Anion Gap 11 (12-20); Blood Urea Nitrogen 9 mg/dL (9-16); Calcium 8.9 mg/dL (8.4-10.2); Carbon Dioxide 26 mmol/L (22-29); Chloride 105 mmol/L (96-108); Creatinine Clr Calc Pharmacy 71.7; Estimated Glomerular Filt Rate > 60; Glucose Random 125 mg/dL (60-115); Potassium 3.9 mmol/L (3.3-5.1); Sodium 138 mmol/L (135-145)
[2023-05-18 06:53] LABS: Hematocrit 37.8 % (37.0-47.0); Hemoglobin 12.5 g/dl (12.0-16.0); Mean Corpuscular HGB Conc 33.1 g/dl (31.0-35.0); Mean Corpuscular Hemoglobin 31.6 pg (27.0-33.0); Mean Corpuscular Volume 95.7 fL (80.0-98.0); Mean Platelet Volume 11.1 fL (9.4-12.3); Platelet Count 223 X10*3/uL (160-400); Red Blood Count 3.95 X10*6/uL (4.20-5.50); Red Cell Distribution Width 12.2 % (11.0-16.0); White Blood Count 10.8 X10*3/uL (4.8-10.8)
[2023-05-18 07:12] LABS: Glucose, Whole Blood 123 mg/dL (60-115)
[2023-05-18] MEDS: Tiotropium Bromide 2.5 mcg 1 PUFF/2.5 MCG MIST.INHAL 2 PUFF INHALE (07:29)
[2023-05-18] MEDS: Fluticasone/Vilanterol 200/25 BLST.W.DEV 1 PUFF INHALE (07:30)
[2023-05-18] MEDS: Budesonide 180 MCG AER.POW.BA 1 PUFF INHALE ×2 (07:30→19:51)
[2023-05-18] MEDS: buPROPion HCl XL 300 MG TAB.ER.24H PO (08:20)
[2023-05-18] MEDS: TiZANidine HCL 4 MG TABLET PO ×3 (08:21→22:57)
[2023-05-18] MEDS: SUMAtriptan succinate 100 MG TABLET PO (08:29)
[2023-05-18] MEDS: Triamcinolone Acet 0.5 % Cream 15 GM TUBE 1 APPL TOPICAL (10:58)
[2023-05-18] MEDS: Diatrizoate Meglumine, Sodium 120 ML SOLUTION 240 ML PO (11:45)
[2023-05-18 12:13] LABS: Glucose, Whole Blood 124 mg/dL (60-115)
--- NOTE | 2023-05-18 13:00 | P.PNGS_ITS ---
Subjective Subjective Date of Service: 05/18/23 Interval history: states she still feels nausea some periodic abdl pain passing flatus and BMs Physical Exam 2 Vital Signs: Vital Signs: Last Vital Signs Temp 96.8 F 05/18/23 06:57 Pulse 71 05/18/23 07:30 Resp 18 05/18/23 07:30 BP 118/62 05/18/23 06:57 Pulse Ox 98 05/18/23 06:57 O2 Del Method Room Air 05/18/23 06:57 BMI result Body Mass Index 31.6 Const: General: comfortable and no acute distress Resp: Effort & Inspection: normal respiratory effort Cardio: Rate: regular rate GI: Other: mild diffuse tenderness Inspection: No distended Palpation (GI): Soft to palpation, not firm and no guarding Objective Data Active Medications Acetaminophen/Butalbital/Caffeine (Butalb/Acetamin/Caff 50/325/40 Tablet) 1 tab PO Q6H PRN PRN Reason: Headache Last Admin: 05/17/23 16:27 Dose: 1 tab Documented By: LISSETH Albuterol Sulfate (Albuterol Sulfate 90 Mcg 8 Gm Inhaler) 2 puff INHALE Q4H PRN PRN Reason: wheezing Budesonide (Budesonide 180 Mcg Aer.Pow.Ba) 1 puff INHALE RBID [facility] Last Admin: 05/18/23 07:30 Dose: 1 puff Documented By: LILLIAN Bupropion HCl (Bupropion Hcl Xl 300 Mg Tab.Er.24h) 300 mg PO DAILY [facility] Last Admin: 05/18/23 08:20 Dose: 300 mg Documented By: DEANNE Cyanocobalamin (Cyanocobalamin (Vitamin B-12) 1,000 Mcg/Ml Vial) 1,000 mcg IM Q30D [facility] Dextrose (Dextrose 50 % 25 Gm/50 Ml Syringe) 25 gm IVPUSH Q15M PRN; Protocol PRN Reason: per Hypoglycemia Standing Ord. Fluticasone/Vilanterol (Fluticasone/Vilanterol 200/25 Blst.W.Dev) 1 puff INHALE RDAILY [facility] Last Admin: 05/18/23 07:30 Dose: 1 puff Documented By: LILLIAN Glucose (Glucose Gel 15 Gm Gel..Gram.) 15 gm PO Q15M PRN; Protocol PRN Reason: per Hypoglycemia Standing Ord. Heparin Sodium (Porcine) (Heparin Sodium,Porcine 5,000 Unit/Ml Vial) 5,000 unit SUBCUT Q8H [facility] Last Admin: 05/18/23 05:57 Dose: 5,000 unit Documented By: LAKHWINDER Hydromorphone HCl (Hydromorphone Hcl 0.5 Mg/0.5 Ml Syringe) 0.25 mg IVPUSH Q3H PRN; Protocol PRN Reason: pain, severe Last Admin: 05/17/23 06:01 Dose: 0.25 mg Documented By: NISA Hydromorphone HCl (Hydromorphone Hcl 0.5 Mg/0.5 Ml Syringe) 0.5 mg IVPUSH Q2H PRN; Protocol PRN Reason: Pain, Severe (Pain Scale 7-10) Last Admin: 05/18/23 11:55 Dose: 0.5 mg Documented By: DEANNE Lactated Ringer's (Lr) 1,000 mls @ 80 mls/hr IVCONT .[id number] [facility] Last Admin: 05/18/23 00:56 Dose: 80 mls/hr Documented By: LAKHWINDER Insulin Human Lispro (Insulin Lispro 100 Unit/Ml 3 Ml Vial) 0 unit SUBCUT QIDACHS [facility]; Protocol Last Admin: 05/18/23 12:21 Dose: Not Given Documented By: DEANNE Non-Admin Reason: No Insulin Coverage Non-Formulary Medication (Cromolyn) 1 drop EYE-BOTH QID [facility] Non-Formulary Medication (Levocetirizine) 1 tab PO BEDTIME [facility] Omeprazole (Omeprazole 40 Mg Capsule.Dr) 40 mg PO BID@0630,1630 [facility] Last Admin: 05/18/23 05:56 Dose: 40 mg Documented By: LAKHWINDER Ondansetron HCl (Ondansetron Hcl 4 Mg/2 Ml Vial) 4 mg IVPUSH Q6H PRN PRN Reason: nausea Last Admin: 05/18/23 08:25 Dose: 4 mg Documented By: DEANNE Sodium Chloride (0.9 % Sodium Chloride Flush 3 Ml Syringe) 3 ml IVFLUSH QSHIFT [facility] Last Admin: 05/18/23 07:28 Dose: Not Given Documented By: DEANNE Non-Admin Reason: IV Running Sumatriptan Succinate (Sumatriptan Succinate 100 Mg Tablet) 100 mg PO DAILY MRX1 PRN PRN Reason: Migraine Headache Last Admin: 05/18/23 08:29 Dose: 100 mg Documented By: DEANNE Tiotropium [place] (Tiotropium [place] 2.5 Mcg 1 Puff/2.5 Mcg Mist.Inhal) 2 puff INHALE RDAILY [facility] Last Admin: 05/18/23 07:29 Dose: 2 puff Documented By: LILLIAN Tizanidine HCl (Tizanidine Hcl 4 Mg Tablet) 4 mg PO TID [facility] Last Admin: 05/18/23 08:21 Dose: 4 mg Documented By: DEANNE Triamcinolone Acetonide (Triamcinolone Acet 0.5 % Cream 15 Gm Tube) 1 appl TOPICAL DAILY [facility] Last Admin: 05/18/23 10:58 Dose: 1 appl Documented By: DEANNE Zolpidem Tartrate (Zolpidem Tartrate 5 Mg Tablet) 5 mg PO BEDTIME PRN PRN Reason: Insomnia Labs 05/18/23 05:59 05/18/23 05:59 Labs: Laboratory Results - last 24 hr 05/17/23 05/17/23 05/18/23 16:03 20:15 05:59 MCV 95.7 MCH 31.6 MCHC 33.1 RDW 12.2 Plt Count 223 MPV 11.1 Absolute Nucleated RBC 0.000 Nucleated RBC % (auto) 0.0 Anion Gap 11 L Estim Creat Clear Calc 71.7 Estimated GFR > 60 POC Glucose 101 97 Random Glucose 125 H Calcium 8.9 D 05/18/23 05/18/23 06:57 12:09 MCV MCH MCHC RDW Plt Count MPV Absolute Nucleated RBC Nucleated RBC % (auto) Anion Gap Estim Creat Clear Calc Estimated GFR POC Glucose 123 H 124 H Random Glucose Calcium Procedures Date of Service Date of Service: 05/18/23 Progress Note: A&P Assessment and plan (1) Abdominal pain: Status: Acute Assessment and Plan: clinically not obstructed still having nausea Sb series ordered she does have multiple hernias exam remains benign on clear liquids Time Spent With Patient Time: Total time managing care of this patient today ____ minutes. Quality Stroke Does the patient have a stroke diagnosis?: No VTE Prior VTE?: No VTE Risk Level:: Medical - moderate - high VTE Device Contraindication: N/A - Device Ordered VTE Drug Contraindication: N/A - Med Ordered
--- NOTE | 2023-05-18 14:56 | MHC.CM.PN ---
EMR REVIEWED AND PER MD ROUNDS, PT NOT MEDICALLY CLEARED FOR DC HOME.(CONTINUES WITH NAUSEA) CM WILL CONTINUE TO FOLLOW FOR ANY CHANGE IN DC PLAN/NEEDS.
[2023-05-18 16:28] LABS: Glucose, Whole Blood 119 mg/dL (60-115)
[2023-05-18 20:41] LABS: Glucose, Whole Blood 78 mg/dL (60-115)
[2023-05-18] MEDS: Zolpidem Tartrate 5 MG TABLET PO (22:57)
[2023-05-18] MEDS: Butalb/Acetamin/Caff 50/325/40 TABLET 1 TAB PO (23:10)
[2023-05-19] VITALS (8 sets, daily range): BP systolic 85–138; BP diastolic 54–63; PULSE 56–77; RESP 15–16; TEMP 36–36.6; O2SAT 94–97
[2023-05-19] MEDS: 0.9 % Sodium Chloride 500 ML IV (01:25)
[2023-05-19] MEDS: Heparin Sodium,Porcine 5,000 UNIT/ML VIAL 5000 UNIT SUBCUT ×3 (05:10→21:33)
[2023-05-19] MEDS: Omeprazole 40 MG CAPSULE.DR PO ×2 (05:10→17:08)
[2023-05-19] MEDS: Lactated Ringers 1,000 ML 80 ML IVCONT (05:10)
[2023-05-19 07:18] LABS: Glucose, Whole Blood 108 mg/dL (60-115)
[2023-05-19] MEDS: buPROPion HCl XL 300 MG TAB.ER.24H PO (07:28)
[2023-05-19] MEDS: HYDROmorphone HCl 0.5 MG/0.5 ML SYRINGE IVPUSH ×6 (07:28→23:32)
[2023-05-19] MEDS: TiZANidine HCL 4 MG TABLET PO ×3 (07:28→21:31)
[2023-05-19] MEDS: Budesonide 180 MCG AER.POW.BA 1 PUFF INHALE ×2 (07:56→20:17)
[2023-05-19] MEDS: Fluticasone/Vilanterol 200/25 BLST.W.DEV 1 PUFF INHALE (07:56)
[2023-05-19] MEDS: Tiotropium Bromide 2.5 mcg 1 PUFF/2.5 MCG MIST.INHAL 2 PUFF INHALE (07:56)
--- NOTE | 2023-05-19 10:15 | P.PNGS_ITS ---
Subjective Subjective Date of Service: 05/19/23 Interval history: passing flatus and BMs some abdl pain but she says she feels better no vomitting Physical Exam 2 Vital Signs: Vital Signs: Last Vital Signs Temp 98 F 05/19/23 07:06 Pulse 73 05/19/23 07:58 Resp 16 05/19/23 07:58 BP 120/57 L 05/19/23 07:06 Pulse Ox 96 05/19/23 07:06 O2 Del Method Room Air 05/19/23 07:06 BMI result Body Mass Index 31.6 Const: Other: Obese General: comfortable and no acute distress Resp: Effort & Inspection: normal respiratory effort Cardio: Rate: regular rate GI: Palpation (GI): Soft to palpation, not firm, nontender and no guarding Objective Data Active Medications Acetaminophen/Butalbital/Caffeine (Butalb/Acetamin/Caff 50/325/40 Tablet) 1 tab PO Q6H PRN PRN Reason: Headache Last Admin: 05/18/23 23:10 Dose: 1 tab Documented By: HUY Albuterol Sulfate (Albuterol Sulfate 90 Mcg 8 Gm Inhaler) 2 puff INHALE Q4H PRN PRN Reason: wheezing Budesonide (Budesonide 180 Mcg Aer.Pow.Ba) 1 puff INHALE RBID [facility] Last Admin: 05/19/23 07:56 Dose: 1 puff Documented By: OMERO Bupropion HCl (Bupropion Hcl Xl 300 Mg Tab.Er.24h) 300 mg PO DAILY [facility] Last Admin: 05/19/23 07:28 Dose: 300 mg Documented By: DEANNE Cyanocobalamin (Cyanocobalamin (Vitamin B-12) 1,000 Mcg/Ml Vial) 1,000 mcg IM Q30D [facility] Dextrose (Dextrose 50 % 25 Gm/50 Ml Syringe) 25 gm IVPUSH Q15M PRN; Protocol PRN Reason: per Hypoglycemia Standing Ord. Fluticasone/Vilanterol (Fluticasone/Vilanterol 200/25 Blst.W.Dev) 1 puff INHALE RDAILY [facility] Last Admin: 05/19/23 07:56 Dose: 1 puff Documented By: OMERO Glucose (Glucose Gel 15 Gm Gel..Gram.) 15 gm PO Q15M PRN; Protocol PRN Reason: per Hypoglycemia Standing Ord. Heparin Sodium (Porcine) (Heparin Sodium,Porcine 5,000 Unit/Ml Vial) 5,000 unit SUBCUT Q8H [facility] Last Admin: 05/19/23 05:10 Dose: 5,000 unit Documented By: HUY Hydromorphone HCl (Hydromorphone Hcl 0.5 Mg/0.5 Ml Syringe) 0.25 mg IVPUSH Q3H PRN; Protocol PRN Reason: pain, severe Last Admin: 05/17/23 06:01 Dose: 0.25 mg Documented By: NISA Hydromorphone HCl (Hydromorphone Hcl 0.5 Mg/0.5 Ml Syringe) 0.5 mg IVPUSH Q2H PRN; Protocol PRN Reason: Pain, Severe (Pain Scale 7-10) Last Admin: 05/19/23 07:28 Dose: 0.5 mg Documented By: DEANNE Insulin Human Lispro (Insulin Lispro 100 Unit/Ml 3 Ml Vial) 0 unit SUBCUT QIDACHS [facility]; Protocol Last Admin: 05/19/23 07:31 Dose: Not Given Documented By: DEANNE Non-Admin Reason: No Insulin Coverage Non-Formulary Medication (Cromolyn) 1 drop EYE-BOTH QID [facility] Non-Formulary Medication (Levocetirizine) 1 tab PO BEDTIME [facility] Omeprazole (Omeprazole 40 Mg Capsule.Dr) 40 mg PO BID@0630,1630 [facility] Last Admin: 05/19/23 05:10 Dose: 40 mg Documented By: HUY Ondansetron HCl (Ondansetron Hcl 4 Mg/2 Ml Vial) 4 mg IVPUSH Q6H PRN PRN Reason: nausea Last Admin: 05/18/23 14:22 Dose: 4 mg Documented By: DEANNE Sodium Chloride (0.9 % Sodium Chloride Flush 3 Ml Syringe) 3 ml IVFLUSH QSHIFT [facility] Last Admin: 05/19/23 08:14 Dose: Not Given Documented By: DENANE Non-Admin Reason: IV Running Sumatriptan Succinate (Sumatriptan Succinate 100 Mg Tablet) 100 mg PO DAILY MRX1 PRN PRN Reason: Migraine Headache Last Admin: 05/18/23 08:29 Dose: 100 mg Documented By: DEANNE Tiotropium [place] (Tiotropium [place] 2.5 Mcg 1 Puff/2.5 Mcg Mist.Inhal) 2 puff INHALE RDAILY [facility] Last Admin: 05/19/23 07:56 Dose: 2 puff Documented By: OMERO Tizanidine HCl (Tizanidine Hcl 4 Mg Tablet) 4 mg PO TID [facility] Last Admin: 05/19/23 07:28 Dose: 4 mg Documented By: DEANNE Triamcinolone Acetonide (Triamcinolone Acet 0.5 % Cream 15 Gm Tube) 1 appl TOPICAL DAILY [facility] Last Admin: 05/18/23 10:58 Dose: 1 appl Documented By: DEANNE Zolpidem Tartrate (Zolpidem Tartrate 5 Mg Tablet) 5 mg PO BEDTIME PRN PRN Reason: Insomnia Last Admin: 05/18/23 22:57 Dose: 5 mg Documented By: HUY Labs 05/18/23 05:59 05/18/23 05:59 Labs: Laboratory Results - last 24 hr 05/18/23 05/18/23 05/18/23 12:09 16:22 20:37 POC Glucose 124 H 119 H 78 05/19/23 07:14 POC Glucose 108 Procedures Date of Service Date of Service: 05/19/23 Progress Note: A&P Assessment and plan (1) Abdominal pain: Status: Acute Assessment and Plan: Nonobstructed on small bowel series yesterday - reviewed with Radiology May have delayed gastric emptying Feels better Has flatus and BMs She does have multiple incisional hernias - she had been planning on losing more weight prior to repair Diet advanced today She looks well otherwise Time Spent With Patient Time: Total time managing care of this patient today ____ minutes. Quality Stroke Does the patient have a stroke diagnosis?: No VTE Prior VTE?: No VTE Risk Level:: Medical - moderate - high VTE Device Contraindication: N/A - Device Ordered VTE Drug Contraindication: N/A - Med Ordered
[2023-05-19] MEDS: Triamcinolone Acet 0.5 % Cream 15 GM TUBE 1 APPL TOPICAL (11:15)
[2023-05-19 11:27] LABS: Glucose, Whole Blood 134 mg/dL (60-115)
[2023-05-19] MEDS: SUMAtriptan succinate 100 MG TABLET PO (12:33)
[2023-05-19] MEDS: ondansetron HCL 4 MG/2 ML VIAL IVPUSH ×2 (12:33→18:50)
--- NOTE | 2023-05-19 12:39 | P.CDIM_ITS ---
PROVIDER RESPONSE TEXT: To clarify, the appropriate diagnosis supported by the clinical indicators: Hemorrhoids: internal, not strangulated, not prolapsed QUERY TEXT: PHYSICIAN'S DOCUMENTATION REQUEST Date of Query: 05/18/2023 09:25 AM EST Patient Name: Pati Rawls Admit Date: 05/15/2023 Dear Ramses Rabago, A review of the medical record indicates additional documentation may be needed. Please review below and update the documentation accordingly. Clinical Indicators: Surgery progress note dated 05/17 - Rectal exam done does not show any abscess- pain may be from hemor rhoids. clear liquid diet Based on the above, could you clarify any specifics of the diagnosis of hemorrhoids noted: Hemorrhoids Internal, external, 1st, 2nd, strangulated etc Other Other (explain) Clinically unable to determine (explain) Thank you, Ree Montoya, CCS, CDIS Use of terms such as suspected, likely, concern for, or probable (associated with a specific diagnosi s that is being evaluated, monitored, or treated as if it exists) are acceptable and can be coded in the inpatient se tting, when documented at the time of discharge. Please use your independent medical judgment in providing your response. THIS QUERY IS PART OF THE PERMANENT MEDICAL RECORD
[2023-05-19 16:12] LABS: Glucose, Whole Blood 86 mg/dL (60-115)
[2023-05-19] MEDS: 0.9 % Sodium Chloride Flush 3 ML SYRINGE IVFLUSH ×2 (17:08→21:37)
[2023-05-19 20:46] LABS: Glucose, Whole Blood 115 mg/dL (60-115)
[2023-05-19] MEDS: Butalb/Acetamin/Caff 50/325/40 TABLET 1 TAB PO (21:31)
[2023-05-19] MEDS: Zolpidem Tartrate 5 MG TABLET PO (21:32)
[2023-05-20] MEDS: HYDROmorphone HCl 0.5 MG/0.5 ML SYRINGE IVPUSH ×10 (01:37→23:26)
[2023-05-20] MEDS: ondansetron HCL 4 MG/2 ML VIAL IVPUSH ×2 (01:37→16:20)
[2023-05-20 04:02] VITALS: BP 119/69; PULSE 59; RESP 16; TEMP 36; O2SAT 97
[2023-05-20] MEDS: Heparin Sodium,Porcine 5,000 UNIT/ML VIAL 5000 UNIT SUBCUT ×3 (04:21→20:16)
[2023-05-20] MEDS: Omeprazole 40 MG CAPSULE.DR PO ×2 (04:22→16:20)
[2023-05-20 06:57] VITALS: BP 117/69; PULSE 52; RESP 17; TEMP 36.7; O2SAT 95
[2023-05-20 07:12] LABS: Glucose, Whole Blood 123 mg/dL (60-115)
[2023-05-20] MEDS: Fluticasone/Vilanterol 200/25 BLST.W.DEV 1 PUFF INHALE (08:27)
[2023-05-20] MEDS: Tiotropium Bromide 2.5 mcg 1 PUFF/2.5 MCG MIST.INHAL 2 PUFF INHALE (08:27)
[2023-05-20] MEDS: Budesonide 180 MCG AER.POW.BA 1 PUFF INHALE ×2 (08:27→19:55)
[2023-05-20 08:29] VITALS: PULSE 61; RESP 18; O2SAT 98
[2023-05-20] MEDS: 0.9 % Sodium Chloride Flush 3 ML SYRINGE IVFLUSH ×3 (08:31→23:32)
[2023-05-20] MEDS: buPROPion HCl XL 300 MG TAB.ER.24H PO (08:31)
[2023-05-20] MEDS: TiZANidine HCL 4 MG TABLET PO ×3 (08:31→20:14)
[2023-05-20] MEDS: Butalb/Acetamin/Caff 50/325/40 TABLET 1 TAB PO ×2 (08:44→18:50)
[2023-05-20 11:18] LABS: Glucose, Whole Blood 166 mg/dL (60-115)
[2023-05-20] MEDS: Insulin Lispro 100 UNIT/ML 3 ML VIAL SUBCUT (11:52)
--- NOTE | 2023-05-20 12:43 | P.PNGS_ITS ---
Subjective Subjective Date of Service: 05/21/23 Interval history: passing flatus tolerating diet says she stilll have some left sided pain although better Physical Exam 2 Vital Signs: Vital Signs: Last Vital Signs Temp 98.1 F 05/20/23 06:57 Pulse 61 05/20/23 08:29 Resp 18 05/20/23 08:29 BP 117/69 05/20/23 06:57 Pulse Ox 95 05/20/23 06:57 O2 Del Method Room Air 05/20/23 06:57 BMI result Body Mass Index 31.6 Const: General: comfortable and no acute distress Resp: Effort & Inspection: normal respiratory effort Cardio: Rate: regular rate GI: Palpation (GI): Soft to palpation, not firm, nontender and no guarding Objective Data Active Medications Acetaminophen/Butalbital/Caffeine (Butalb/Acetamin/Caff 50/325/40 Tablet) 1 tab PO Q6H PRN PRN Reason: Headache Last Admin: 05/20/23 08:44 Dose: 1 tab Documented By: OSMAN Albuterol Sulfate (Albuterol Sulfate 90 Mcg 8 Gm Inhaler) 2 puff INHALE Q4H PRN PRN Reason: wheezing Budesonide (Budesonide 180 Mcg Aer.Pow.Ba) 1 puff INHALE RBID [facility] Last Admin: 05/20/23 08:27 Dose: 1 puff Documented By: OMERO Bupropion HCl (Bupropion Hcl Xl 300 Mg Tab.Er.24h) 300 mg PO DAILY [facility] Last Admin: 05/20/23 08:31 Dose: 300 mg Documented By: OSMAN Cyanocobalamin (Cyanocobalamin (Vitamin B-12) 1,000 Mcg/Ml Vial) 1,000 mcg IM Q30D [facility] Dextrose (Dextrose 50 % 25 Gm/50 Ml Syringe) 25 gm IVPUSH Q15M PRN; Protocol PRN Reason: per Hypoglycemia Standing Ord. Fluticasone/Vilanterol (Fluticasone/Vilanterol 200/25 Blst.W.Dev) 1 puff INHALE RDAILY [facility] Last Admin: 05/20/23 08:27 Dose: 1 puff Documented By: OMERO Glucose (Glucose Gel 15 Gm Gel..Gram.) 15 gm PO Q15M PRN; Protocol PRN Reason: per Hypoglycemia Standing Ord. Heparin Sodium (Porcine) (Heparin Sodium,Porcine 5,000 Unit/Ml Vial) 5,000 unit SUBCUT Q8H [facility] Last Admin: 05/20/23 04:21 Dose: 5,000 unit Documented By: HUY Hydromorphone HCl (Hydromorphone Hcl 0.5 Mg/0.5 Ml Syringe) 0.25 mg IVPUSH Q3H PRN; Protocol PRN Reason: pain, severe Last Admin: 05/17/23 06:01 Dose: 0.25 mg Documented By: NISA Hydromorphone HCl (Hydromorphone Hcl 0.5 Mg/0.5 Ml Syringe) 0.5 mg IVPUSH Q2H PRN; Protocol PRN Reason: Pain, Severe (Pain Scale 7-10) Last Admin: 05/20/23 11:15 Dose: 0.5 mg Documented By: OSMAN Insulin Human Lispro (Insulin Lispro 100 Unit/Ml 3 Ml Vial) 0 unit SUBCUT QIDACHS [facility]; Protocol Last Admin: 05/20/23 11:52 Dose: 2 unit Documented By: OSMAN Non-Formulary Medication (Cromolyn) 1 drop EYE-BOTH QID [facility] Non-Formulary Medication (Levocetirizine) 1 tab PO BEDTIME [facility] Omeprazole (Omeprazole 40 Mg Capsule.Dr) 40 mg PO BID@0630,1630 [facility] Last Admin: 05/20/23 04:22 Dose: 40 mg Documented By: HUY Ondansetron HCl (Ondansetron Hcl 4 Mg/2 Ml Vial) 4 mg IVPUSH Q6H PRN PRN Reason: nausea Last Admin: 05/20/23 01:37 Dose: 4 mg Documented By: HUY Sodium Chloride (0.9 % Sodium Chloride Flush 3 Ml Syringe) 3 ml IVFLUSH QSHIFT [facility] Last Admin: 05/20/23 08:31 Dose: 3 ml Documented By: OSMAN Sumatriptan Succinate (Sumatriptan Succinate 100 Mg Tablet) 100 mg PO DAILY MRX1 PRN PRN Reason: Migraine Headache Last Admin: 05/19/23 12:33 Dose: 100 mg Documented By: DEANNE Tiotropium [place] (Tiotropium [place] 2.5 Mcg 1 Puff/2.5 Mcg Mist.Inhal) 2 puff INHALE RDAILY [facility] Last Admin: 05/20/23 08:27 Dose: 2 puff Documented By: OMERO Tizanidine HCl (Tizanidine Hcl 4 Mg Tablet) 4 mg PO TID [facility] Last Admin: 05/20/23 08:31 Dose: 4 mg Documented By: OSMAN Triamcinolone Acetonide (Triamcinolone Acet 0.5 % Cream 15 Gm Tube) 1 appl TOPICAL DAILY [facility] Last Admin: 05/20/23 09:24 Dose: Not Given Documented By: OSMAN Non-Admin Reason: Previously Administered Zolpidem Tartrate (Zolpidem Tartrate 5 Mg Tablet) 5 mg PO BEDTIME PRN PRN Reason: Insomnia Last Admin: 05/19/23 21:32 Dose: 5 mg Documented By: HUY Labs 05/18/23 05:59 05/18/23 05:59 Labs: Laboratory Results - last 24 hr 05/19/23 05/19/23 05/20/23 16:07 20:43 07:08 POC Glucose 86 115 123 H 05/20/23 11:15 POC Glucose 166 H Procedures Date of Service Date of Service: 05/21/23 Progress Note: A&P Assessment and plan (1) Abdominal pain: Status: Acute Assessment and Plan: abdl pain much improved SB series does not show obstruction abd benign on regular diet continue to monitor plan discharge when tolerating diet well, pain resolved Time Spent With Patient Time: Total time managing care of this patient today ____ minutes. Quality Stroke Does the patient have a stroke diagnosis?: No VTE Prior VTE?: No VTE Risk Level:: Medical - moderate - high VTE Device Contraindication: N/A - Device Ordered VTE Drug Contraindication: N/A - Med Ordered
[2023-05-20 15:23] VITALS: BP 135/65; PULSE 59; RESP 20; TEMP 36.1; O2SAT 99
[2023-05-20 16:10] LABS: Glucose, Whole Blood 123 mg/dL (60-115)
[2023-05-20 19:55] VITALS: PULSE 59; RESP 20; O2SAT 99
[2023-05-20 20:07] LABS: Glucose, Whole Blood 130 mg/dL (60-115)
[2023-05-20] MEDS: Zolpidem Tartrate 5 MG TABLET PO (21:24)
[2023-05-20 23:46] VITALS: BP 109/55; PULSE 62; RESP 18; TEMP 36.1; O2SAT 98
[2023-05-21] MEDS: HYDROmorphone HCl 0.5 MG/0.5 ML SYRINGE IVPUSH ×3 (01:52→09:15)
[2023-05-21] MEDS: Heparin Sodium,Porcine 5,000 UNIT/ML VIAL 5000 UNIT SUBCUT (06:03)
[2023-05-21] MEDS: Omeprazole 40 MG CAPSULE.DR PO (06:05)
[2023-05-21] MEDS: ondansetron HCL 4 MG/2 ML VIAL IVPUSH (06:08)
[2023-05-21 07:14] VITALS: BP 120/58; PULSE 59; RESP 18; TEMP 37.2; O2SAT 97
[2023-05-21 07:20] LABS: Glucose, Whole Blood 131 mg/dL (60-115)
[2023-05-21] MEDS: Butalb/Acetamin/Caff 50/325/40 TABLET 1 TAB PO (07:21)
[2023-05-21] MEDS: Fluticasone/Vilanterol 200/25 BLST.W.DEV 1 PUFF INHALE (08:24)
[2023-05-21] MEDS: Budesonide 180 MCG AER.POW.BA 1 PUFF INHALE (08:24)
[2023-05-21] MEDS: Tiotropium Bromide 2.5 mcg 1 PUFF/2.5 MCG MIST.INHAL 2 PUFF INHALE (08:24)
[2023-05-21 08:27] VITALS: PULSE 61; RESP 18; O2SAT 97
--- NOTE | 2023-05-21 08:40 | P.PNGS_ITS ---
Subjective Subjective Date of Service: 05/21/23 Interval history: Continues to feel better Tolerating diet Has BMs and flatus Physical Exam 2 Vital Signs: Vital Signs: Last Vital Signs Temp 99.0 F 05/21/23 07:14 Pulse 61 05/21/23 08:27 Resp 18 05/21/23 08:27 BP 120/58 L 05/21/23 07:14 Pulse Ox 97 05/21/23 07:14 O2 Del Method Room Air 05/21/23 07:14 BMI result Body Mass Index 31.6 Const: General: comfortable and no acute distress Resp: Effort & Inspection: normal respiratory effort Cardio: Rate: regular rate GI: Palpation (GI): Soft to palpation, not firm and nontender Objective Data Active Medications Acetaminophen/Butalbital/Caffeine (Butalb/Acetamin/Caff 50/325/40 Tablet) 1 tab PO Q6H PRN PRN Reason: Headache Last Admin: 05/21/23 07:21 Dose: 1 tab Documented By: OSMAN Albuterol Sulfate (Albuterol Sulfate 90 Mcg 8 Gm Inhaler) 2 puff INHALE Q4H PRN PRN Reason: wheezing Budesonide (Budesonide 180 Mcg Aer.Pow.Ba) 1 puff INHALE RBID [facility] Last Admin: 05/21/23 08:24 Dose: 1 puff Documented By: MARY Bupropion HCl (Bupropion Hcl Xl 300 Mg Tab.Er.24h) 300 mg PO DAILY [facility] Last Admin: 05/20/23 08:31 Dose: 300 mg Documented By: OSMAN Cyanocobalamin (Cyanocobalamin (Vitamin B-12) 1,000 Mcg/Ml Vial) 1,000 mcg IM Q30D [facility] Dextrose (Dextrose 50 % 25 Gm/50 Ml Syringe) 25 gm IVPUSH Q15M PRN; Protocol PRN Reason: per Hypoglycemia Standing Ord. Fluticasone/Vilanterol (Fluticasone/Vilanterol 200/25 Blst.W.Dev) 1 puff INHALE RDAILY [facility] Last Admin: 05/21/23 08:24 Dose: 1 puff Documented By: MARY Glucose (Glucose Gel 15 Gm Gel..Gram.) 15 gm PO Q15M PRN; Protocol PRN Reason: per Hypoglycemia Standing Ord. Heparin Sodium (Porcine) (Heparin Sodium,Porcine 5,000 Unit/Ml Vial) 5,000 unit SUBCUT Q8H [facility] Last Admin: 05/21/23 06:03 Dose: 5,000 unit Documented By: MARIA DOLORES Hydromorphone HCl (Hydromorphone Hcl 0.5 Mg/0.5 Ml Syringe) 0.25 mg IVPUSH Q3H PRN; Protocol PRN Reason: pain, severe Last Admin: 05/17/23 06:01 Dose: 0.25 mg Documented By: NISA Hydromorphone HCl (Hydromorphone Hcl 0.5 Mg/0.5 Ml Syringe) 0.5 mg IVPUSH Q2H PRN; Protocol PRN Reason: Pain, Severe (Pain Scale 7-10) Last Admin: 05/21/23 06:05 Dose: 0.5 mg Documented By: MARIA DOLORES Insulin Human Lispro (Insulin Lispro 100 Unit/Ml 3 Ml Vial) 0 unit SUBCUT QIDACHS [facility]; Protocol Last Admin: 05/21/23 07:18 Dose: Not Given Documented By: OSMAN Non-Admin Reason: No Insulin Coverage Non-Formulary Medication (Cromolyn) 1 drop EYE-BOTH QID [facility] Non-Formulary Medication (Levocetirizine) 1 tab PO BEDTIME [facility] Omeprazole (Omeprazole 40 Mg Capsule.Dr) 40 mg PO BID@0630,1630 [facility] Last Admin: 05/21/23 06:05 Dose: 40 mg Documented By: MARIA DOLORES Ondansetron HCl (Ondansetron Hcl 4 Mg/2 Ml Vial) 4 mg IVPUSH Q6H PRN PRN Reason: nausea Last Admin: 05/21/23 06:08 Dose: 4 mg Documented By: MARIA DOLORES Sodium Chloride (0.9 % Sodium Chloride Flush 3 Ml Syringe) 3 ml IVFLUSH QSHIFT [facility] Last Admin: 05/20/23 23:32 Dose: 3 ml Documented By: MARIA DOLORES Sumatriptan Succinate (Sumatriptan Succinate 100 Mg Tablet) 100 mg PO DAILY MRX1 PRN PRN Reason: Migraine Headache Last Admin: 05/19/23 12:33 Dose: 100 mg Documented By: DEANNE Tiotropium [place] (Tiotropium [place] 2.5 Mcg 1 Puff/2.5 Mcg Mist.Inhal) 2 puff INHALE RDAILY [facility] Last Admin: 05/21/23 08:24 Dose: 2 puff Documented By: MARY Tizanidine HCl (Tizanidine Hcl 4 Mg Tablet) 4 mg PO TID [facility] Last Admin: 05/20/23 20:14 Dose: 4 mg Documented By: KINGS Triamcinolone Acetonide (Triamcinolone Acet 0.5 % Cream 15 Gm Tube) 1 appl TOPICAL DAILY [facility] Last Admin: 05/20/23 09:24 Dose: Not Given Documented By: OSMAN Non-Admin Reason: Previously Administered Zolpidem Tartrate (Zolpidem Tartrate 5 Mg Tablet) 5 mg PO BEDTIME PRN PRN Reason: Insomnia Last Admin: 05/20/23 21:24 Dose: 5 mg Documented By: KINGS Labs 05/18/23 05:59 05/18/23 05:59 Labs: Laboratory Results - last 24 hr 05/20/23 05/20/23 05/20/23 11:15 16:06 20:03 POC Glucose 166 H 123 H 130 H 05/21/23 07:16 POC Glucose 131 H Procedures Date of Service Date of Service: 05/21/23 Progress Note: A&P Assessment and plan (1) Abdominal pain: Status: Acute Assessment and Plan: Has occasional abdominal pain still but much improved Tolerating diet Abdomen is soft and benign Good GI function She states she is ready to go home today Abdominal binder provided for the patient - she has multiple hernias She will see me in the office for follow-up discuss hernia repair Time Spent With Patient Time: Total time managing care of this patient today ____ minutes. Quality Stroke Does the patient have a stroke diagnosis?: No VTE Prior VTE?: No VTE Risk Level:: Medical - moderate - high VTE Device Contraindication: N/A - Device Ordered VTE Drug Contraindication: N/A - Med Ordered
[2023-05-21] MEDS: buPROPion HCl XL 300 MG TAB.ER.24H PO (09:14)
[2023-05-21] MEDS: TiZANidine HCL 4 MG TABLET PO (09:14)
[2023-05-21] MEDS: 0.9 % Sodium Chloride Flush 3 ML SYRINGE IVFLUSH (09:17)
--- NOTE | 2023-05-21 09:40 | MHC.CM.PN ---
IMM 05/21/22 Patient is discharged to home today with family support and transportation home.
--- NOTE | 2023-05-26 15:17 | PM.DS ---
DS: Providers Provider Date of Service: 05/22/23 Date of admission: 05/15/23 13:23 Primary care physician: Cooper Adam MD Consults: 05/15/23 13:26 Consult to Hospitalist Routine Comment: Consulting Provider: Hospitalist Reason For Exam: DM, asthma DS: Diagnosis Discharge Diagnosis (1) Abdominal pain: Status: Acute (2) Abdominal hernia: Status: Acute (3) Incisional hernia: Status: Acute DS: Summary Hospital Course Hospital Course: 62-year-old female with obesity, and diabetes, and multiple previous abdominal surgeries, admitted on 05/15/2022 for abdominal pain. She she also had some vomiting associated with this. She has a history of partial small-bowel obstructions in the past. She also has multiple incisional hernias from her previous abdominal surgeries. Her CT scan did not highly suggest any obstruction. We kept her NPO in the hospital and place her on IV fluids. She continued to have some vague abdominal pains without any vomiting. She was passing flatus. I therefore sent her for a small bowel series on May 18, 2022. This did not reveal any obstruction. Contrast went through all the way to the colon without difficulty. She did have some I does not of low gastric motility. I therefore started to advance her diet from clear liquids slowly all the way to her food which she had tolerated. She did not have any vomiting and continue have bowel movements as well as flatus during her hospital stay. She describes some periodic abdominal pain although this had improved. She continued to have improvement with her level of pain. She tolerated her diet well and continued to have bowel movements and flatus. She was therefore discharged home on May 22, 2022. She had an abdominal binder placed because of her multiple abdominal hernias with bowel loops. Time Attestation Discharge coordination time: Less than 30 minutes Quality: Safe Use of Opioids Does Pt have an Active Cancer Diagnosis on the Problem List?: No Quality: Stroke Does the patient have a stroke diagnosis?: No Physical Exam Vital Signs: Vital Signs: Last Vital Signs Temp 99.0 F 05/21/23 07:14 Pulse 61 05/21/23 08:27 Resp 18 05/21/23 08:27 BP 120/58 L 05/21/23 07:14 Pulse Ox 97 05/21/23 07:14 O2 Del Method Room Air 05/21/23 07:14 BMI result Body Mass Index 31.6 Const: Other: Obese General: comfortable and no acute distress Orientation/consciousness: patient oriented x3 Neck: Neck: Yes no lymphadenopathy Resp: Auscultation: clear to auscultation bilaterally Cardio: Rhythm: regular rhythm GI: Other: Has thick abdominal wall fat, vague hernias along her old incision and colostomy Palpation (GI): Soft to palpation, nontender and no guarding Neuro: General: patient oriented x3 DS: Data Data Completed and Pending Pending studies at discharge: Laboratory Results WBC 10.8 X10*3/uL (4.8-10.8) 05/18/23 05:59 RBC 3.95 X10*6/uL (4.20-5.50) L 05/18/23 05:59 Hgb 12.5 g/dl (12.0-16.0) 05/18/23 05:59 Hct 37.8 % (37.0-47.0) 05/18/23 05:59 MCV 95.7 fL (80.0-98.0) 05/18/23 05:59 MCH 31.6 pg (27.0-33.0) 05/18/23 05:59 MCHC 33.1 g/dl (31.0-35.0) 05/18/23 05:59 RDW 12.2 % (11.0-16.0) 05/18/23 05:59 Plt Count 223 X10*3/uL (160-400) 05/18/23 05:59 MPV 11.1 fL (9.4-12.3) 05/18/23 05:59 Immature Gran % (Auto) 0.4 % (0.0-0.4) 05/15/23 06:46 Neut % (Auto) 81.2 % (45-73) H 05/15/23 06:46 Lymph % (Auto) 10.5 % (20-40) L 05/15/23 06:46 [place] % (Auto) 5.8 % (2-11) 05/15/23 06:46 Eos % (Auto) 1.8 % (0-4) 05/15/23 06:46 Baso % (Auto) 0.3 % (0-2) 05/15/23 06:46 Lymph # (Auto) 2.0 X10*3/uL (1.2-4.9) 05/15/23 06:46 [place] # (Auto) 1.1 X10*3/uL (0.1-1.2) 05/15/23 06:46 Eos # (Auto) 0.3 X10*3/uL (0.0-0.4) 05/15/23 06:46 Baso # (Auto) 0.1 X10*3/uL (0.0-0.2) 05/15/23 06:46 Abs Immat Gran (auto) 0.08 X10*3/uL (0.00-0.03) H 05/15/23 06:46 Absolute Neuts (auto) 15.0 x10*3/uL (2.0-8.3) H 05/15/23 06:46 Absolute Nucleated RBC 0.000 X10*3/uL (0.0-0.012) 05/18/23 05:59 Nucleated RBC % (auto) 0.0 /100WBC (0.0-0.2) 05/18/23 05:59 Sodium 138 mmol/L (135-145) 05/18/23 05:59 Potassium 3.9 mmol/L (3.3-5.1) 05/18/23 05:59 Chloride 105 mmol/L (96-108) 05/18/23 05:59 Carbon Dioxide 26 mmol/L (22-29) 05/18/23 05:59 Anion Gap 11 (12-20) L 05/18/23 05:59 BUN 9 mg/dL (9-16) 05/18/23 05:59 Creatinine 0.83 mg/dL (0.5-1.4) 05/18/23 05:59 Estim Creat Clear Calc 71.7 05/18/23 05:59 Estimated GFR > 60 05/18/23 05:59 POC Glucose 131 mg/dL (60-115) H 05/21/23 07:16 Random Glucose 125 mg/dL (60-115) H 05/18/23 05:59 Calcium 8.9 mg/dL (8.4-10.2) D 05/18/23 05:59 Total Bilirubin 0.4 mg/dL (0.0-1.0) 05/15/23 06:46 AST 15 U/L (5-31) 05/15/23 06:46 ALT 21 U/L (0-31) 05/15/23 06:46 Alkaline Phosphatase 90 U/L (39-117) 05/15/23 06:46 Total Protein 8.0 g/dL (6.5-8.0) 05/15/23 06:46 Albumin 4.3 g/dL (3.5-5.0) 05/15/23 06:46 Urine Color Yellow 05/15/23 15:40 Urine Appearance Clear 05/15/23 15:40 Urine pH 7.0 (5.0-9.0) 05/15/23 15:40 Ur Specific [place] >= 1.030 (1.005-1.025) H 05/15/23 15:40 Urine Protein Negative mg/dL (Neg-Trace) 05/15/23 15:40 Urine Glucose (UA) 500 mg/dL (Negative) H 05/15/23 15:40 Urine Ketones Negative mg/dL (Negative) 05/15/23 15:40 Urine Blood Negative (Negative) 05/15/23 15:40 Urine Nitrite Negative (Negative) 05/15/23 15:40 Ur Leukocyte Esterase Negative (Negative) 05/15/23 15:40 Impressions Abdomen/Pelvis CT 05/15/23 08:18 IMPRESSION: Multiple abdominal hernias as described in detail above. The right-sided spigelian hernia appears reduced on the current study. New dilatation/distention of mid to distal small bowel loops measuring up to 3 cm with fecalization. No transition point. No focal bowel wall thickening. Advise clinical correlation for partial small bowel obstruction. Upper GI and Small Bowel X-Ray 05/18/23 11:45 IMPRESSION: 1. Contrast is seen in the right colon at 1 hour 30 minutes. 2. No small bowel dilation is seen to suggest obstruction. The small bowel appears normal. 2. A large amount of contrast is still present in the fundus of the stomach at the end of this exam. This procedure was performed by Nasir Bronson PA-C, and supervised by Dr. Velasquez Discharge Plan Discharge Anticipated Discharge Date/Time: 05/21/23 08:41 Patient Disposition: Home, Self-Care Discharge Diagnosis: Abdominal pain, question partial small-bowel obstruction Referrals: Cooper Adam MD [Primary Care Provider] - 1 Week Discharge Medications: Continued pyridoxine (vitamin B6) 50 mg tablet 50 mg PO DAILY 90 Days Qty: 90 1RF dicyclomine 10 mg capsule 10 mg PO Q6-8H PRN (Reason: for cramps) Qty: 120 3RF omeprazole 40 mg capsule,delayed release(DR/EC) 40 mg PO BID 90 Days Qty: 180 2RF promethazine 25 mg tablet 25 mg PO Q4-6H PRN (Reason: for nausea/vomiting) Qty: 90 1RF ondansetron 8 mg tablet,disintegrating 8 mg PO Q8H Qty: 90 0RF lisinopril 2.5 mg Tablet 2.5 mg PO DAILY atorvastatin 20 mg tablet 1 tab PO DAILY sumatriptan succinate 100 mg tablet 100 mg PO DAILY MRX1 PRN (Reason: Migraine Headache) Rx Instructions: max 200mg calcium carbonate-vitamin D3 600 mg(1,500mg) -400 unit tablet 1 tab PO BID levocetirizine 5 mg tablet 1 tab PO BEDTIME docusate sodium [Colace] 100 mg capsule 100 mg PO BID Qty: 60 0RF tizanidine 4 mg tablet 1 tab PO Q8H cromolyn 4 % drops 1 drp ophthalmic (eye) QID enupuxqunn-iiwatfe-jxxmmrrh 50-325-40 mg capsule 1 cap PO Q6H PRN (Reason: Headache) nystatin 100,000 unit/gram powder 1 appl topical BID Pulmicort Flexhaler 180 mcg/actuation aerosol powdr breath activated 1 puff PO BID Spiriva Respimat 2.5 mcg/actuation mist 2 puff inhalation DAILY aspirin 81 mg Tablet,Delayed Release (Dr/Ec) 81 mg PO DAILY oxycodone 5 mg tablet 5 mg PO TID PRN (Reason: pain) Qty: 14 0RF triamcinolone acetonide 0.025 % Cream 1 appl TOPICAL DAILY betamethasone dipropionate 0.05 % cream 1 appl topical DAILY cyanocobalamin (vitamin B-12) 1,000 mcg/mL Kit 1,000 mcg IM QMONTH Relistor 150 mg Tablet 150 mg PO TID zolpidem 10 mg tablet 10 mg PO BEDTIME PRN (Reason: insomnia) bupropion HCl 300 mg tablet extended release 24 hr 300 mg PO DAILY lorazepam 0.5 mg tablet 0.5 mg PO BID PRN (Reason: Anxiety) sucralfate [Carafate] 100 mg/mL suspension 5 ml PO QID Rx Instructions: swish in mouth and swallow; use after food/drink ferrous gluconate 324 mg (38 mg iron) tablet 324 mg PO BID (DME) blood sugar diagnostic Strip See Rx Instructions Not Applicable TID Qty: 10 Rx Instructions: As directed (DME) lancets 28 gauge misc See Rx Instructions topical TID Qty: 100 Rx Instructions: As directed albuterol sulfate 90 mcg/actuation HFA aerosol inhaler 2 puff inhalation Q4H PRN (Reason: wheezing) Premarin 0.625 mg/gram cream 0.625 mg vaginal DAILY Trulicity 1.5 mg/0.5 mL pen injector 1.5 mg subcut Q7D Dupixent Pen 300 mg/2 mL pen injector 300 mg subcut Q2W zafirlukast 20 mg tablet 20 mg PO BID fluticasone furoate-vilanterol [Breo Ellipta] 200-25 mcg/dose blister with device 1 ea inhalation DAILY Discharge Orders: Discharge Order (Routine); Ordered 05/21/23 Ordered By: Ramses Rabago Activity on Discharge: No heavy lifting Stand Alone Forms: Patient Portal Discharge page Care Plan Goals: control DM weight management Health Concerns: DM OBESITY hernias Plan of Treatment: restart meds ffup in office Assessment: much improved Discharge Date/Time: 05/21/23 11:19
== END 2023-05-21 11:19 | disposition home or self-care (01) | DRG 392 ==
LOC: HO.ED 13:16 → HO.EDOVER 13:32 → HO.S3 13:57
PROVIDERS: Registered Nurse Emergency; Admitting Provider Surgery; Emergency Provider Emergency Medicine; PCP Family Medicine; Visit Provider Surgery
DX: K30 Functional dyspepsia (principal); J45.41 Moderate persistent asthma with (acute) exacerbation; E66.9 Obesity, unspecified; E11.9 Type 2 diabetes mellitus without complications; K64.8 Other hemorrhoids; K43.9 Ventral hernia without obstruction or gangrene; Z68.31 Body mass index [BMI] 31.0-31.9, adult; Z79.82 Long term (current) use of aspirin; Z79.899 Other long term (current) drug therapy
CPT/HCPCS: 36415; 74177; 74250; 80048; 80053; 81003; 82947; 85025; 85027; 94640; 99285; J1170; J1644; J1885; J2405; J3010; J7120; Q9967

== ENCOUNTER 2023-05-15 13:23 | Outpatient (BNV) | payer MEDICARE, MEDICAID, SELFPAY | END 2023-05-18 09:10 | PROVIDERS: Admitting Provider Surgery; Emergency Provider Emergency Medicine; PCP Family Medicine; Visit Provider Radiology Diagnostic Radiology | DX: R10.9 Unspecified abdominal pain (principal); R11.2 Nausea with vomiting, unspecified | CPT/HCPCS: 74250 ==

== ENCOUNTER → 2023-05-15 13:23 | Outpatient (BNV) | payer MEDICARE, MEDICAID, SELFPAY | PROVIDERS: Admitting Provider Surgery; Emergency Provider Emergency Medicine; PCP Family Medicine; Visit Provider Surgery | DX: R10.30 Lower abdominal pain, unspecified (principal); K46.9 Unspecified abdominal hernia without obstruction or gangrene; K43.2 Incisional hernia without obstruction or gangrene | CPT/HCPCS: 99222; 99232; 99238; 99499 ==

== ENCOUNTER → 2023-05-15 13:23 | Outpatient (BNV) | payer MEDICARE, MEDICAID, SELFPAY | PROVIDERS: Admitting Provider Surgery; Emergency Provider Emergency Medicine; PCP Family Medicine; Visit Provider Student in an Organized Health Care Education/Training Program | DX: K56.600 Partial intestinal obstruction, unspecified as to cause (principal) | CPT/HCPCS: 99222 ==

== ENCOUNTER 2023-05-28 11:35 | Outpatient (AMB) | payer MEDICARE, MEDICAID, SELFPAY ==
--- NOTE | 2023-05-28 11:37 | MHC.OFFVIS ---
Intake Vital Signs 05/28/23 11:43 Weight 177 lb BP 112/59 L Blood Pressure Location Rt brachial Position Sitting Pulse 91 Intake Visit Reasons: Hernia, ? [place], [place] [facility] [place] Intake Note: This patient presents [place] [facility] [place] follow-[place] for hernia, abdominal pain. *Inpatient follow-up* Patient c/o; reports abdominal pain. Apparel Embroidery Digitizer Required: No Accompanied by: Other Relationship Allergies Penicillins [PENICILLINS] Allergy (Severe, Verified 05/28/23 11:45) RASH acetaminophen [From Tylenol] Allergy (Mild, Verified 05/28/23 11:45) Unknown gabapentin [GABAPENTIN] Allergy (Mild, Verified 05/28/23 11:45) ABD PAIN esomeprazole [Nexium] Allergy (Unknown, Verified 05/28/23 11:45) rash famotidine [From PEPCID] Allergy (Unknown, Verified 05/28/23 11:45) UPSET STOMACH lansoprazole [Prevacid] Allergy (Unknown, Verified 05/28/23 11:45) rash penicillin V Allergy (Unknown, Verified 05/28/23 11:45) stomach pains tramadol Allergy (Verified 05/28/23 11:45) Hives morphine Adverse Reaction (Verified 05/28/23 11:45) Headache From NEXIUM Allergy (Unknown, Uncoded 05/28/23 11:45) RASH Medication List - Last Reconciled 05/28/23 by Ramses Rabago MD albuterol sulfate 90 mcg/actuation 2 puffs inhalation Q4H PRN aspirin 81 mg PO DAILY atorvastatin 1 tab PO DAILY betamethasone dipropionate 0.05% 1 appl topical DAILY blood sugar diagnostic As directed budesonide 180 mcg/actuation (Pulmicort Flexhaler) 1 puff PO BID bupropion HCl 300 mg PO DAILY swquiitneb-gbljchp-brfmxwnn 50-325-40 mg 1 cap PO Q6H PRN calcium carbonate-vitamin D3 600 mg-10 mcg (400 unit) 1 tab PO BID conjugated estrogens (Premarin) 0.625 mg vaginal DAILY cromolyn 4% 1 drp ophthalmic (eye) QID cyanocobalamin (vitamin B-12) 1,000 mcg IM QMONTH dicyclomine 10 mg PO Q6-8H PRN docusate sodium (Colace) 100 mg PO BID dulaglutide (Trulicity) 1.5 mg subcut Q7D dupilumab (Dupixent) 300 mg subcut Q2W ferrous gluconate 324 mg PO BID fluticasone furoate-vilanterol 200-25 mcg/dose (Breo Ellipta) 1 ea inhalation DAILY lancets As directed levocetirizine 1 tab PO BEDTIME lisinopril 2.5 mg PO DAILY lorazepam 0.5 mg PO BID PRN methylnaltrexone (Relistor) 150 mg PO TID nystatin 1 appl topical BID omeprazole 40 mg PO BID 90 days ondansetron 8 mg PO Q8H oxycodone 5 mg PO TID PRN promethazine 25 mg PO Q4-6H PRN pyridoxine (vitamin B6) 50 mg PO DAILY 90 days sucralfate (Carafate) 5 mL PO QID sumatriptan succinate 100 mg PO DAILY MRX1 PRN tiotropium bromide 2.5 mcg/actuation (Spiriva Respimat) 2 puffs inhalation DAILY tizanidine 1 tab PO Q8H triamcinolone acetonide 0.025% 1 appl topical DAILY zafirlukast 20 mg PO BID zolpidem 10 mg PO BEDTIME PRN HPI Hernia, ? SBO, [place] pain, [facility] [place] HPI Details She is here for follow-up because of her abdominal wall hernias. She had surgery for diverticular disease in 2010 and had an diverting loop ileostomy thereafter which was eventually reversed. She has developed multiple hernias on her abdominal wall. I had admitted her to the hospital last May 20 abdominal pain. She had a small bowel series which did not reveal any obstruction at that time She is interested in repair of her multiple hernias because of the symptoms associated with this. [facility] Medical History Abdominal hernia Morbid obesity due to excess calories Incisional hernia UTI (urinary tract infection) Chronic back pain Diverticulitis Diverticulitis History of diverticulitis SIRS (systemic inflammatory response syndrome) Abdominal pain Asthma Depression Migraines Diabetes 1.5, managed as type 2 HTN (hypertension) Surgical History Hx of hand surgery Hx of colonoscopy History of esophagogastroduodenoscopy (EGD) History of partial colectomy History of hysterectomy History of cholecystectomy Family History Father Cancer Social History Household Members: Spouse Housing: Apartment Do you presently have visiting nurse or other home services: No Alcohol intake: never Comment: Pt. sleeping Patient Tobacco Use Status: Never used Tobacco e-Cigarette/Vaping Use: Never Used Second Hand Smoke Exposure: Yes Advance Directives Date on File: 10/02/20 service: No Current occupational status: disabled Review of Systems Const Denies chills and Denies fever(s) Card Denies chest pain, Denies dyspnea and Denies dyspnea on exertion Resp Denies cough, Denies dyspnea and Denies dyspnea on exertion GI Denies hematochezia and Denies change in bowel habits Denies hematuria Musc Denies back pain and Denies limited range of motion Neuro Denies focal weakness and Denies convulsions Psych Denies depression and Denies mood swings Physical Exam Vital Signs: Last Vital Signs Pulse 91 05/28/23 11:43 BP 112/59 L 05/28/23 11:43 Const Other: Obese looking General: comfortable and no acute distress Resp Effort & Inspection: normal respiratory effort Cardio Rate: regular rate GI Other: Obese abdomen, large palpable hernia with Valsalva on the low abdomen, nontender Assessment & Plan Assessment & Plan (1) Incisional hernia: Code(s): K43.2 - Incisional hernia without obstruction or gangrene Plan: She has known multiple incisional hernias. Review of her CT scan shows a large hernia on the lower midline, about 5 cm wide on the fascial defect, with bowel loops. Another hernia about 3.3 cm above this is also seen. This was much smaller hernia above the umbilicus measuring about 1.5 cm She I had reviewed with her the option of proceeding with hernia repair for this multiple hernias. I discussed the technique of this procedure which will likely involve mesh. I explained the risks including but not limited to bleeding, infections, bowel injury, recurrence. She does have large amounts of visceral fat and truncal obesity so understands that her perioperative risks are higher. She is planning to lose more weight and will come back to me in 2 months to review plans for surgery. Coding Level of Care Code Est Pt Level 3 (21764) Diagnoses Incisional hernia K43.2
[2023-05-28 11:43] VITALS: BP 112/59; PULSE 91
== END 2023-05-28 11:52 | disposition home or self-care (01) ==
PROVIDERS: PCP Family Medicine; Visit Provider Surgery
DX: K43.2 Incisional hernia without obstruction or gangrene (principal)
CPT/HCPCS: 99213

== ENCOUNTER → 2023-05-28 11:35 | Outpatient (BNVA) | payer MEDICARE, MEDICAID, SELFPAY | PROVIDERS: PCP Family Medicine; Visit Provider Surgery | DX: K43.2 Incisional hernia without obstruction or gangrene (principal) | CPT/HCPCS: 99212 ==

== ENCOUNTER 2023-06-26 10:08 | Outpatient (AMB) | payer MEDICARE, MEDICAID, SELFPAY ==
--- NOTE | 2023-06-26 10:15 | MHC.OFFVIS ---
Intake Vital Signs 06/26/23 10:19 Height 5 ft 3 in Weight 174 lb 2.643 oz BMI 30.8 BP 124/60 Blood Pressure Location Lt brachial Position Sitting Pulse 73 Intake Visit Reasons: 3 month follow up Intake Note: Pati presents in the office as a 3 month follow up. CC: She states that she is not having any concerns at this time. Just needs refills on her medications. Mass Spectrometry Specialist Required: No Allergies Penicillins [PENICILLINS] Allergy (Severe, Verified 06/26/23 10:20) RASH acetaminophen [From Tylenol] Allergy (Mild, Verified 06/26/23 10:20) Unknown gabapentin [GABAPENTIN] Allergy (Mild, Verified 06/26/23 10:20) ABD PAIN esomeprazole [Nexium] Allergy (Unknown, Verified 06/26/23 10:20) rash famotidine [From PEPCID] Allergy (Unknown, Verified 06/26/23 10:20) UPSET STOMACH lansoprazole [Prevacid] Allergy (Unknown, Verified 06/26/23 10:20) rash penicillin V Allergy (Unknown, Verified 06/26/23 10:20) stomach pains tramadol Allergy (Verified 06/26/23 10:20) Hives morphine Adverse Reaction (Verified 06/26/23 10:20) Headache From NEXIUM Allergy (Unknown, Uncoded 06/26/23 10:20) RASH HPI 3 month follow up HPI Details 62 year old female with PMH of DM, HtN, asthma, hx of LAR with ileostomy and reversal who I am seeing for f/u after I initially saw her as an inpatient for RLQ pain. RECAP: She had RLQ sharp, burning pain for 2 weeks prior to admission. She felt this pain was similar to her prior episodes of diverticulitis, at least 6 since her LAR surgery 2010. It was severe and worse with movement. she has persistent nausea for months and was waiting for an EGD at [facility], Last colonoscopy 3 yrs ago at [facility], results not known. She had CT scan 11/07/20 with sigmoid diverticulitis and several internal hernias, incl ventral and umbilical areas. Repeat CT 11/18/20--- no areas of stranding seen but large ventral hernia noted, lots of stool content in bowel I did an EGD/colonoscopy with gastritis, noted, surgical changes to colon, diverticulosis, lots of looping of colon ba swallow 12/06/2020--normal, no hiatal hernia, no GOO\ she has seen Dr Rabago and discussed hernia repair INTERIM: she has ongoing pain over the hernia area feels her bowel regimen is still not optimal, does go once a day using heat pack using relistor and dulcolax trying to lose weight for hernia surgery EXAM: GENERAL: The patient is well developed and nontoxic. VITAL SIGNS:see workflow HEENT: Nonicteric sclerae, PERRLA, EOMI. Oropharynx clear. Moist mucous membranes. Conjunctivae appear well perfused. No thyroid mass. CHEST: Chest wall is nontender. HEART: Regular rate and rhythm without murmurs. LUNGS: Clear to auscultation bilaterally. ABDOMEN: Soft, positive bowel sounds, nontender, no organomegaly.no flank tenderness--large right ventral hernia SKIN: No rash, no excessive bruising, petechiae, or purpura. NEUROLOGIC: Cranial nerves II-XII intact without motor/sensory deficit. A/P: 1/ Opiate related side effect and GI dysmotility, seems to be doing well with current treatment regimen--sx also from her hernia PLAN: 1/ cont with relistor, bentyl, and compazine prn, can add low dose linaclotide 2/ advised to use ice pack instead of heat pack PFSH Medical History Abdominal hernia Morbid obesity due to excess calories Incisional hernia UTI (urinary tract infection) Chronic back pain Diverticulitis Diverticulitis History of diverticulitis SIRS (systemic inflammatory response syndrome) Abdominal pain Asthma Depression Migraines Diabetes 1.5, managed as type 2 HTN (hypertension) Surgical History Hx of hand surgery Hx of colonoscopy History of esophagogastroduodenoscopy (EGD) History of partial colectomy History of hysterectomy History of cholecystectomy Family History Father Cancer Social History Household Members: Spouse Housing: Apartment Do you presently have visiting nurse or other home services: No Alcohol intake: never Comment: Pt. sleeping Patient Tobacco Use Status: Never used Tobacco e-Cigarette/Vaping Use: Never Used Second Hand Smoke Exposure: Yes Advance Directives Date on File: 10/02/20 service: No Current occupational status: disabled Assessment & Plan Assessment & Plan (1) Gastrointestinal dysmotility: Code(s): K92.89 - Other specified diseases of the digestive system Plan: see above Medications: New linaclotide 72 mcg PO DAILY 30 caps 3RF Refilled dicyclomine 10 mg PO Q6-8H PRN 120 caps 3RF for cramps Coding Level of Care Code Est Pt Level 3 (91247) Diagnoses Gastrointestinal dysmotility K92.89
[2023-06-26 10:19] VITALS: BP 124/60; PULSE 73; BMI 30.8
== END 2023-06-26 11:02 | disposition home or self-care (01) ==
PROVIDERS: PCP Family Medicine; Visit Provider Internal Medicine Gastroenterology
DX: K92.89 Other specified diseases of the digestive system (principal)
CPT/HCPCS: 99213

== ENCOUNTER → 2023-06-26 10:08 | Outpatient (BNVA) | payer MEDICARE, MEDICAID, SELFPAY | PROVIDERS: PCP Family Medicine; Visit Provider Internal Medicine Gastroenterology | DX: K92.89 Other specified diseases of the digestive system (principal) | CPT/HCPCS: 99212 ==

== ENCOUNTER 2023-07-22 10:51 | Outpatient (AMB) | payer MEDICARE, MEDICAID, SELFPAY ==
[2023-07-22 11:08] VITALS: BMI 31.2
--- NOTE | 2023-07-22 11:08 | MHC.OFFVIS ---
Intake Vital Signs 07/22/23 11:08 Height 5 ft 3 in Weight 176 lb BMI 31.2 Intake Visit Reasons: Multiple incisional hernias, 2 mo follow up Intake Note: This patient presents for an assessment for multiple incisional hernias, 2 month follow up. Patient c/o; reports no improvements since last visit. Equipment Application Specialist Required: No Accompanied by: Other Relationship Allergies Penicillins [PENICILLINS] Allergy (Severe, Verified 07/22/23 11:15) RASH acetaminophen [From Tylenol] Allergy (Mild, Verified 07/22/23 11:15) Unknown gabapentin [GABAPENTIN] Allergy (Mild, Verified 07/22/23 11:15) ABD PAIN esomeprazole [Nexium] Allergy (Unknown, Verified 07/22/23 11:15) rash famotidine [From PEPCID] Allergy (Unknown, Verified 07/22/23 11:15) UPSET STOMACH lansoprazole [Prevacid] Allergy (Unknown, Verified 07/22/23 11:15) rash penicillin V Allergy (Unknown, Verified 07/22/23 11:15) stomach pains tramadol Allergy (Verified 07/22/23 11:15) Hives morphine Adverse Reaction (Verified 07/22/23 11:15) Headache From NEXIUM Allergy (Unknown, Uncoded 07/22/23 11:15) RASH HPI Multiple incisional hernias, 2 mo follow up HPI Details 62-year-old female here for follow-up for her incisional hernias. I had admitted him to the hospital last April, because of pain on these hernias. She had a CAT scan done at that time as well as a small bowel series which did not reveal any signs of obstruction. The larger hernia contained bowel loops. She is morbidly obese. She has a large pannus so I had recommended weight loss for her prior to repair. However, she says that she has had very poor success with weight loss and states that she has been trying her best. She continues to have significant discomfort and pain. She says she really wants to proceed with repair of this hernias. FOR[facility]LY [facility] Medical History Abdominal hernia Morbid obesity due to excess calories Incisional hernia UTI (urinary tract infection) Chronic back pain Diverticulitis Diverticulitis History of diverticulitis SIRS (systemic inflammatory response syndrome) Abdominal pain Asthma Depression Migraines Diabetes 1.5, managed as type 2 HTN (hypertension) Surgical History Hx of hand surgery Hx of colonoscopy History of esophagogastroduodenoscopy (EGD) History of partial colectomy History of hysterectomy History of cholecystectomy Family History Father Cancer Social History Household Members: Spouse Housing: Apartment Do you presently have visiting nurse or other home services: No Alcohol intake: never Comment: Pt. sleeping Patient Tobacco Use Status: Never used Tobacco e-Cigarette/Vaping Use: Never Used Second Hand Smoke Exposure: Yes Advance Directives Date on File: 10/02/20 service: No Current occupational status: disabled Review of Systems Const Denies chills and Denies fever(s) Card Denies chest pain, Denies dyspnea and Reports dyspnea on exertion Resp Denies cough, Denies dyspnea and Reports dyspnea on exertion GI Denies hematochezia and Denies change in bowel habits Denies hematuria Musc Denies back pain and Denies limited range of motion Neuro Denies focal weakness and Denies convulsions Psych Denies depression and Denies mood swings Physical Exam Vital Signs: BMI result Body Mass Index 31.2 Const Other: Obese General: comfortable and no acute distress Orientation/consciousness: patient oriented x3 Neck Neck: Yes no lymphadenopathy Resp Auscultation: clear to auscultation bilaterally Cardio Rhythm: regular rhythm GI Other: Has a large pannus, vague hernia on the midline difficult to define in view of her pannus and obesity Palpation (GI): Soft to palpation, nontender and no guarding Neuro General: patient oriented x3 Assessment & Plan Assessment & Plan (1) Abdominal hernia: Code(s): K46.9 - Unspecified abdominal hernia without obstruction or gangrene Plan: Review of her CT scan shows multiple hernias. At the level of the umbilicus is note of a fat containing umbilical hernia, with a defect measuring about 3.6 cm. There is a much smaller hernia adjacent to this in the umbilicus which is fat containing. On the lower midline is note of a larger hernia, containing loops of small bowel, measuring about 5.5 cm on the fascial defect. This hernia contents hangs down into the pannus. She says that she has had worsening discomfort and wants to proceed with surgery to repair these hernias. I had a long discussion with her about the technique of repair of this multiple hernias with mesh. I explained the risks including but not limited to bleeding, infections, recurrence, wound infections, bowel injury, inherent risks of anesthesia including blood clots and pneumonia, benefits and alternatives. She understands that in view of her morbid obesity with a large pannus, and diabetes, she has above average risk for these perioperative events She says that her hemoglobin A1c has been within normal. She wants to proceed with the surgery and understands the above. Coding Level of Care Code Est Pt Level 4 (00903) Diagnoses Abdominal hernia K46.9
== END 2023-07-22 11:31 | disposition home or self-care (01) ==
PROVIDERS: PCP Family Medicine; Visit Provider Surgery
DX: K46.9 Unspecified abdominal hernia without obstruction or gangrene (principal)
CPT/HCPCS: 99214

== ENCOUNTER → 2023-07-22 10:51 | Outpatient (BNVA) | payer MEDICARE, MEDICAID, SELFPAY | PROVIDERS: PCP Family Medicine; Visit Provider Surgery | DX: K46.9 Unspecified abdominal hernia without obstruction or gangrene (principal); E65 Localized adiposity; E66.01 Morbid (severe) obesity due to excess calories; Z68.31 Body mass index [BMI] 31.0-31.9, adult | CPT/HCPCS: 99212 ==

== ENCOUNTER 2023-08-08 10:47 | Emergency (ER) | payer MEDICARE, MEDICAID, SELFPAY ==
--- NOTE | ~2023-08-08 | CT_ITS ---
EXAMINATION: CT ABDOMEN AND PELVIS WITH CONTRAST CLINICAL INFORMATION: Right lower quadrant hernia pain COMPARISON: CT abdomen and pelvis 05/15/2023 TECHNIQUE: Multidetector volumetric images were obtained from the superior aspect of the liver through the pubic symphysis following administration 85 mL of Omnipaque 350 intravenous contrast. Sagittal and coronal reformatted images were obtained on the technologist's workstation. Oral contrast: Yes This CT examination was performed using dose optimization techniques as appropriate, variously including the following: *Automated exposure control *Adjustment of mA and/or kV according to patient size (this includes techniques or standardized protocols for targeted exams where dose is matched to indication/reason for exam; i.e. extremities or head) *Use of iterative reconstruction technique DLP: 614 mGy-cm FINDINGS: LUNG BASES: The visualized lung bases are unremarkable. LIVER, GALLBLADDER, AND BILIARY TREE: The liver is normal in size, shape, and attenuation. No focal hepatic lesion or biliary ductal dilatation is present. The gallbladder is surgically absent. PANCREAS: Unremarkable. SPLEEN: Unremarkable. ADRENAL GLANDS: Unremarkable. KIDNEYS AND URETERS: The kidneys are normal in size, shape, and attenuation. No hydronephrosis, hydroureter, or calculi seen. No perinephric stranding. BLADDER: Unremarkable. GASTROINTESTINAL TRACT: The stomach and duodenum are normal. The large and small bowel are normal in caliber. ABDOMINAL WALL: Fat-containing umbilical hernia. Infraumbilical ventral hernia containing fat. Nonobstructive bowel. Right spigelian hernia containing decompressed bowel. LYMPH NODES: Normal. VASCULAR: Unremarkable. PELVIC VISCERA: Unremarkable. OSSEOUS STRUCTURES: Mild multilevel degenerative changes of the lumbar spine. CT/CT abdomen pelvis w IV con IMPRESSION: Unchanged ventral hernias and right spigelian hernia, containing nonobstructed loops of bowel. No evidence of incarceration. Fleischner guidelines were followed.
[2023-08-08 10:58] VITALS: BP 123/61; BP 148/74; PULSE 88; PULSE 99; RESP 16; TEMP 36.8; O2SAT 95; O2SAT 96; BMI 31.0
--- NOTE | 2023-08-08 12:22 | ED.ABDPAIN ---
HPI - Abdominal Pain General Chief Complaint: Abdominal Pain Stated Complaint: ABD PAIN NAUSEA Time Seen by Provider: 08/08/23 10:53 Source: patient Mode of arrival: EMS Limitations: no limitations History of Present Illness HPI narrative: 62-year-old female with diabetes mellitus, hypertension, hyperlipidemia obesity, and diabetes, cholecystectomy, hysterectomy with bilateral salpingo-oophorectomy, colon resection secondary to diverticular, small-bowel obstructions who presents emergency department for evaluation of lower abdominal pain. She states that she has had lower abdominal pain since being admitted to the hospital in April 2023. She states that the pain is a constant twisting sensation but has been worse over the past 2 days. Patient had associated nausea and vomiting. She states she did have a normal bowel movement yesterday. Today the pain became more severe and she had fever, chills and sweats. She states she has had no appetite. Related Data Home Medications ?Medication ?Instructions ?Recorded ?Confirmed atorvastatin 20 mg tablet 1 tab PO DAILY 04/17/20 05/28/23 calcium carbonate 600 mg-vitamin 1 tab PO BID 04/17/20 05/28/23 D3 10 mcg (400 unit) tablet levocetirizine 5 mg tablet 1 tab PO BEDTIME 04/17/20 05/28/23 sumatriptan succinate 100 mg tablet 100 mg PO DAILY MRX1 PRN Migraine 04/17/20 05/28/23 Headache blood sugar diagnostic #10 ea 09/28/20 05/28/23 lancets 28 gauge #100 ea 09/28/20 05/28/23 albuterol sulfate 90 mcg/actuation 2 puff inhalation Q4H PRN wheezing 10/09/20 05/28/23 aerosol inhaler lisinopril 2.5 mg tablet 2.5 mg PO DAILY 11/07/20 05/28/23 aspirin 81 mg tablet,delayed 81 mg PO DAILY 12/11/20 05/28/23 release budesonide 180 mcg/actuation 1 puff PO BID 12/11/20 05/28/23 breath activated powder inhaler (Pulmicort Flexhaler) rzguvokzjn-mxunlef-kbhafcob 50 1 cap PO Q6H PRN Headache 12/11/20 05/28/23 mg-325 mg-40 mg capsule cromolyn 4 % eye drops 1 drp ophthalmic (eye) QID 12/11/20 05/28/23 nystatin 100,000 unit/gram topical 1 appl topical BID 12/11/20 05/28/23 powder tiotropium bromide 2.5 2 puff inhalation DAILY 12/11/20 05/28/23 mcg/actuation mist for inhalation (Spiriva Respimat) tizanidine 4 mg tablet 1 tab PO Q8H 12/11/20 05/28/23 zolpidem 10 mg tablet 10 mg PO BEDTIME PRN insomnia 01/04/21 05/28/23 bupropion HCl 300 mg 24 hr tablet, 300 mg PO DAILY 07/18/21 05/28/23 extended release lorazepam 0.5 mg tablet 0.5 mg PO BID PRN Anxiety 07/18/21 05/28/23 ferrous gluconate 324 mg (38 mg 324 mg PO BID 07/29/21 05/28/23 iron) tablet sucralfate 100 mg/mL oral 5 ml PO QID 07/29/21 05/28/23 suspension (Carafate) dupilumab 300 mg/2 mL subcutaneous 300 mg subcut Q2W 07/11/22 05/28/23 pen injector (MediWound) zafirlukast 20 mg tablet 20 mg PO BID 07/11/22 05/28/23 fluticasone furoate 200 1 ea inhalation DAILY 08/04/22 05/28/23 mcg-vilanterol 25 mcg/dose inhalation powder (Breo Ellipta) conjugated estrogens 0.625 mg/gram 0.625 mg vaginal DAILY 01/22/23 05/28/23 vaginal cream (Premarin) betamethasone dipropionate 0.05 % 1 appl topical DAILY 05/15/23 05/28/23 topical cream cyanocobalamin (vitamin B-12) 1,000 mcg IM QMONTH 05/15/23 05/28/23 1,000 mcg/mL injection kit triamcinolone acetonide 0.025 % 1 appl topical DAILY 05/15/23 05/28/23 topical cream dulaglutide 0.75 mg/0.5 mL mg subcut 06/26/23 subcutaneous pen injector (Colibri IO) Previous Rx's ?Medication ?Instructions ?Recorded docusate sodium 100 mg capsule 100 mg PO BID constipation #60 caps 11/21/20 (Colace) oxycodone 5 mg tablet 5 mg PO TID PRN pain #14 tabs 12/14/20 omeprazole 40 mg capsule,delayed 40 mg PO BID 90 days #180 caps 03/24/23 release linaclotide 72 mcg capsule 72 mcg PO DAILY #30 caps 06/26/23 pyridoxine (vitamin B6) 50 mg 50 mg PO DAILY 90 days #90 tabs 07/08/23 tablet ondansetron 8 mg disintegrating 8 mg PO Q8H #90 tabs 07/22/23 tablet promethazine 25 mg tablet 25 mg PO Q4-6H PRN for 07/22/23 nausea/vomiting #90 tabs methylnaltrexone 150 mg tablet 450 mg (3 x 150 mg) PO DAILY #90 07/27/23 (Relistor) tabs dicyclomine 10 mg capsule 10 mg PO Q6-8H PRN for cramps #120 07/30/23 caps Allergies Allergy/AdvReac Type Severity Reaction Status Date / Time Penicillins [PENICILLINS] Allergy Severe RASH Verified 08/08/23 11:02 acetaminophen [From Tylenol] Allergy Mild Unknown Verified 08/08/23 11:02 gabapentin [GABAPENTIN] Allergy Mild ABD PAIN Verified 08/08/23 11:02 esomeprazole [Nexium] Allergy Unknown rash Verified 08/08/23 11:02 famotidine [From PEPCID] Allergy Unknown UPSET Verified 08/08/23 11:02 STOMACH lansoprazole [Prevacid] Allergy Unknown rash Verified 08/08/23 11:02 penicillin V Allergy Unknown stomach Verified 08/08/23 11:02 pains tramadol Allergy Hives Verified 08/08/23 11:02 morphine AdvReac Headache Verified 08/08/23 11:02 From NEXIUM Allergy Unknown RASH Uncoded 08/08/23 11:02 Review of Systems Review of Systems Yes all other systems are reviewed and are negative [facility] Past Medical History [facility] Narrative: Social history: She denies tobacco, alcohol and drug use. Medical History Abdominal hernia Morbid obesity due to excess calories Incisional hernia UTI (urinary tract infection) Chronic back pain Diverticulitis Diverticulitis History of diverticulitis SIRS (systemic inflammatory response syndrome) Abdominal pain Asthma Depression Migraines Diabetes 1.5, managed as type 2 HTN (hypertension) Surgical History Hx of hand surgery Hx of colonoscopy History of esophagogastroduodenoscopy (EGD) History of partial colectomy History of hysterectomy History of cholecystectomy Family History Family History Father Cancer Social History Social History Household Members: Spouse Housing: Apartment Do you presently have visiting nurse or other home services: No Alcohol intake: never Comment: Pt. sleeping Patient Tobacco Use Status: Never used Tobacco Smoked in Last 30 Days: No e-Cigarette/Vaping Use: Never Used Second Hand Smoke Exposure: Yes Use of substances other than those prescribed or required for medical reasons: No Advance Directives: Yes Advance Directives on File: Yes Advance Directives Date on File: 10/02/20 Patient : No service: No Current occupational status: disabled Physical Exam ED Vital Signs: Vital Signs - 24 hr 08/08/23 10:58 08/08/23 14:17 08/08/23 17:08 Temperature 98.3 F 98.5 F Pulse Rate 88 74 71 Respiratory Rate 16 16 16 Blood Pressure 123/61 124/51 L 119/63 Pulse Oximetry 95 96 92 Oxygen Delivery Method Room Air Room Air Room Air BMI result Body Mass Index 31.0 Vital signs were normal Exam: General: Awake, alert in no distress Head: Normocephalic, atraumatic EENT: PERRL, Lids normal, sclera normal, conjunctiva normal, nose normal , ears normal, throat without erythema or exudates Neck: Supple, no adenopathy Lung: breath sounds symmetric, no wheezing, rales or rhonchi Chest: symmetric movement, nontender Heart: regular rate and rhythm, normal S1, S2 no murmurs or rubs Abdomen: Obese, moderate right lower and left lower quadrant tenderness, normoactive bowel sounds, no rebound Back: no vertebral tenderness, no CVAT Extremities: no deformities, moves all extremities symmetrically Neuro: Awake, alert, oriented, normal speech, cranial nerves intact, moves all extremities symmetrically Psych: Pleasant, cooperative Medical Decision Making Medical Decision Making MDM Narrative: 62-year-old female with diabetes mellitus, hypertension, hyperlipidemia obesity, and diabetes, cholecystectomy, hysterectomy with bilateral salpingo-oophorectomy, partial colectomy secondary to diverticulitis, small-bowel obstructions who presents emergency department for evaluation of lower abdominal pain. She states that she has had lower abdominal pain since being admitted to the hospital in April 2023. She states that the pain is a constant twisting sensation but has been worse over the past 2 days with associated fever, chills, nausea, vomiting. She did have a normal bowel movement yesterday but no bowel movement today. Vital signs were normal. Exam did reveal moderate right lower and left lower quadrant tenderness. Differential diagnosis: ?Includes but is not limited to bowel obstruction, incarcerated hernia, pancreatitis, diverticulitis, gastritis, viral syndrome, electrolyte abnormality, anemia Following evaluation was ordered: CBC, CMP, lactic acid, lipase, PTT, urinalysis, CT scan of the abdomen pelvis with IV and oral contrast Course: 17:36 My interpretation patient's laboratory evaluation is as follows: WBC elevated 24,200 with 83 neutrophils 9.9 lymphocytes. Patient has had elevated WBC in the past but face value was higher than usual. Bicarb low 20. Glucose elevated 125. Lactic acid elevated 2.4, repeat after fluid was 1.5. ALT elevated 38. Lipase normal 10. Urinalysis was positive for glucose. Microscopic revealed 0-2 RBCs , 0-5 WBCs, no bacteria seen The CT scan of the patient's abdomen pelvis with IV and oral contrast revealed unchanged eventual hernias and right spigelian hernia containing non obstructing loops of bowel with no evidence of incarceration. At this time I do not have a clear etiology for the patient's pain, it is most likely chronic. The patient did require multiple doses of Dilaudid 1 mg IV x3 and Zofran 4 mg IV x1 to control her pain. She also received normal saline x1 L. I did discuss the patient's blood work and findings with her, she does have oxycodone and Zofran at home for pain, she was discharged home and advised to follow-up with her PCP and surgeon for further evaluation Admission/Observation Consideration of admission/observation: Escalation of care including admission/observation considered Lab Data MDM Lab Attestation statement: I reviewed the patient's lab results. 08/08/23 12:41 08/08/23 12:41 Labs: Lab Results 08/08/23 08/08/23 Range/Units 12:41 15:30 WBC 24.2 H (4.8-10.8) X10*3/uL RBC 4.61 (4.20-5.50) X10*6/uL Hgb 15.0 (12.0-16.0) g/dl Hct 42.6 (37.0-47.0) % MCV 92.4 (80.0-98.0) fL MCH 32.5 (27.0-33.0) pg MCHC 35.2 H (31.0-35.0) g/dl RDW 13.0 (11.0-16.0) % Plt Count 314 D (160-400) X10*3/uL MPV 10.1 (9.4-12.3) fL Immature Gran % (Auto) 0.7 H (0.0-0.4) % Neut % (Auto) 83.0 H (45-73) % Lymph % (Auto) 9.9 L (20-40) % Lassen % (Auto) 5.0 (2-11) % Eos % (Auto) 1.2 (0-4) % Baso % (Auto) 0.2 (0-2) % Lymph # (Auto) 2.4 (1.2-4.9) X10*3/uL Lassen # (Auto) 1.2 (0.1-1.2) X10*3/uL Eos # (Auto) 0.3 (0.0-0.4) X10*3/uL Baso # (Auto) 0.1 (0.0-0.2) X10*3/uL Abs Immat Gran (auto) 0.16 H (0.00-0.03) X10*3/uL Absolute Neuts (auto) 20.1 H (2.0-8.3) x10*3/uL Absolute Nucleated RBC 0.000 (0.0-0.012) X10*3/uL Nucleated RBC % (auto) 0.0 (0.0-0.2) /100WBC Smear Tech's Comments VERIFIED APTT 33.3 (26.0-36.8) SEC Sodium 137 (135-145) mmol/L Potassium 4.2 (3.3-5.1) mmol/L Chloride 107 (96-108) mmol/L Carbon Dioxide 20 L (22-29) mmol/L Anion Gap 14 (12-20) BUN 14 (9-16) mg/dL Creatinine 0.91 (0.5-1.4) mg/dL Estim Creat Clear Calc 64.7 Estimated GFR > 60 Random Glucose 125 H (60-115) mg/dL Lactic Acid 2.4 H* (0.5-2.0) mmol/L Lactic Acid F/U @ 2Hr 1.5 (0.5-2.0) mmol/L Calcium 9.5 D (8.4-10.2) mg/dL Total Bilirubin 0.4 (0.0-1.0) mg/dL AST 31 (5-31) U/L ALT 38 H (0-31) U/L Alkaline Phosphatase 80 (39-117) U/L Total Protein 7.7 (6.5-8.0) g/dL Albumin 4.2 (3.5-5.0) g/dL Lipase 10 (8-78) U/L Urine Color Yellow Urine Appearance Clear Urine pH 6.0 (5.0-9.0) Ur Specific Langdon 1.015 (1.005-1.025) Urine Protein Negative (Neg-Trace) mg/dL Urine Glucose (UA) >=1000 H (Negative) mg/dL Urine Ketones Negative (Negative) mg/dL Urine Blood Negative (Negative) Urine Nitrite Negative (Negative) Ur Leukocyte Esterase Negative (Negative) Urine RBC 0-2 (0-2) /HPF Urine WBC 0-5 (0-5) /HPF Ur Squamous Epith Cells 0-2 (0-2) /HPF Urine Bacteria None Seen (None Seen) Hyaline Casts 0-2 (0-2) /LPF Radiology Impression Discussion of test interpretation with radiology: I have reviewed the radiologist's reading. Radiologist Impression: CT abdomen pelvis w IV con IMPRESSION: Unchanged ventral hernias and right spigelian hernia, containing nonobstructed loops of bowel. No evidence of incarceration. Fleischner guidelines were followed. Dictated By: Trino Segovia MD Medications Administered Discontinued Medications Generic Name Dose Route Start Last Admin Trade Name Freq PRN Reason Stop Dose Admin Diatrizoate Meglum/Diatrizoate Sod 30 ml 08/08/23 12:36 08/08/23 12:37 Diatrizoate Meglumine, Sodium 30 Ml Solution PO 08/08/23 12:37 30 ml ONCE ONE Administration Hydromorphone HCl 1 mg 08/08/23 12:22 08/08/23 12:36 Hydromorphone Hcl 1 Mg/Ml Syringe IVPUSH 08/08/23 12:23 1 mg ONCE STA Administration Protocol Hydromorphone HCl 1 mg 08/08/23 13:39 08/08/23 14:00 Hydromorphone Hcl 1 Mg/Ml Syringe IVPUSH 08/08/23 13:40 1 mg ONCE STA Administration Protocol Hydromorphone HCl 1 mg 08/08/23 16:16 08/08/23 16:24 Hydromorphone Hcl 1 Mg/Ml Syringe IVPUSH 08/08/23 16:17 1 mg ONCE STA Administration Protocol Sodium Chloride 1,000 mls @ 999 mls/hr 08/08/23 12:22 08/08/23 14:03 Ns IV 08/08/23 13:22 Infused .Q1H1M STA Infusion Iohexol 100 ml 08/08/23 15:14 08/08/23 15:14 Iohexol 350 Mg/Ml 100 Ml Infus..Btl IV 08/08/23 15:15 85 ml ONCE ONE Administration Ondansetron HCl 4 mg 08/08/23 12:22 08/08/23 12:36 Ondansetron Hcl 4 Mg/2 Ml Vial IVPUSH 08/08/23 12:23 4 mg ONCE ONE Administration Discharge Plan Discharge Clinical Impression: Abdominal pain Qualifiers: Abdominal location: lower abdomen, unspecified Qualified Code(s): R10.30 - Lower abdominal pain, unspecified Patient Disposition: Home, Self-Care Additional Instructions: Your blood work was unremarkable except for an elevated white blood cell count-this may be caused by your pain The CT scan of your abdomen pelvis with IV and oral contrast was unchanged from your previous CT scans, there was no evidence for a bowel obstruction or incarcerated hernia as the cause of your pain At this time I do not have a clear cause for your pain, I want you to follow-up with your primary care doctor and your surgeon for re-evaluation Continue taking your oxycodone and your Zofran as prescribed by your providers Follow-up with your doctor in 2 days. Please return to the emergency department if your symptoms get worse or if you develop any symptoms that are concerning to you. Prescriptions: No Action omeprazole 40 mg capsule,delayed release(DR/EC) 40 mg PO BID 90 Days Qty: 180 2RF pyridoxine (vitamin B6) 50 mg tablet 50 mg PO DAILY 90 Days Qty: 90 1RF ondansetron 8 mg tablet,disintegrating 8 mg PO Q8H Qty: 90 2RF promethazine 25 mg tablet 25 mg PO Q4-6H PRN (Reason: for nausea/vomiting) Qty: 90 2RF Relistor 150 mg tablet 450 mg PO DAILY Qty: 90 3RF dicyclomine 10 mg capsule 10 mg PO Q6-8H PRN (Reason: for cramps) Qty: 120 3RF lisinopril 2.5 mg Tablet 2.5 mg PO DAILY atorvastatin 20 mg tablet 1 tab PO DAILY sumatriptan succinate 100 mg tablet 100 mg PO DAILY MRX1 PRN (Reason: Migraine Headache) Rx Instructions: max 200mg calcium carbonate-vitamin D3 600 mg(1,500mg) -400 unit tablet 1 tab PO BID levocetirizine 5 mg tablet 1 tab PO BEDTIME docusate sodium [Colace] 100 mg capsule 100 mg PO BID Qty: 60 0RF tizanidine 4 mg tablet 1 tab PO Q8H cromolyn 4 % drops 1 drp ophthalmic (eye) QID dsuxkzmxfg-thmoczx-yirtumkf 50-325-40 mg capsule 1 cap PO Q6H PRN (Reason: Headache) nystatin 100,000 unit/gram powder 1 appl topical BID Pulmicort Flexhaler 180 mcg/actuation aerosol powdr breath activated 1 puff PO BID Spiriva Respimat 2.5 mcg/actuation mist 2 puff inhalation DAILY aspirin 81 mg Tablet,Delayed Release (Dr/Ec) 81 mg PO DAILY oxycodone 5 mg tablet 5 mg PO TID PRN (Reason: pain) Qty: 14 0RF triamcinolone acetonide 0.025 % Cream 1 appl TOPICAL DAILY betamethasone dipropionate 0.05 % cream 1 appl topical DAILY cyanocobalamin (vitamin B-12) 1,000 mcg/mL Kit 1,000 mcg IM QMONTH zolpidem 10 mg tablet 10 mg PO BEDTIME PRN (Reason: insomnia) bupropion HCl 300 mg tablet extended release 24 hr 300 mg PO DAILY lorazepam 0.5 mg tablet 0.5 mg PO BID PRN (Reason: Anxiety) sucralfate [Carafate] 100 mg/mL suspension 5 ml PO QID Rx Instructions: swish in mouth and swallow; use after food/drink ferrous gluconate 324 mg (38 mg iron) tablet 324 mg PO BID (DME) blood sugar diagnostic Strip See Rx Instructions Not Applicable TID Qty: 10 Rx Instructions: As directed (DME) lancets 28 gauge misc See Rx Instructions topical TID Qty: 100 Rx Instructions: As directed albuterol sulfate 90 mcg/actuation HFA aerosol inhaler 2 puff inhalation Q4H PRN (Reason: wheezing) Premarin 0.625 mg/gram cream 0.625 mg vaginal DAILY Dupixent Pen 300 mg/2 mL pen injector 300 mg subcut Q2W zafirlukast 20 mg tablet 20 mg PO BID fluticasone furoate-vilanterol [Breo Ellipta] 200-25 mcg/dose blister with device 1 ea inhalation DAILY Trulicity 0.75 mg/0.5 mL pen injector subcut linaclotide 72 mcg capsule 72 mcg PO DAILY Qty: 30 3RF Print Language: Albanian
[2023-08-08] MEDS: HYDROmorphone HCl 1 MG/ML SYRINGE IVPUSH ×3 (12:36→16:24)
[2023-08-08] MEDS: ondansetron HCL 4 MG/2 ML VIAL IVPUSH (12:36)
[2023-08-08] MEDS: 0.9 % Sodium Chloride 1,000 ML 999 ML IV (12:36)
[2023-08-08] MEDS: Diatrizoate Meglumine, Sodium 30 ML SOLUTION PO (12:37)
[2023-08-08 12:49] LABS: Appearance Urine Clear; Basophils Absolute Auto 0.1 X10*3/uL (0.0-0.2); Basophils Percent Auto 0.2 % (0-2); Color Urine Yellow; Eosinophils Absolute Auto 0.3 X10*3/uL (0.0-0.4); Eosinophils Percent Auto 1.2 % (0-4); Glucose Urine UA >=1000 mg/dL (Negative); Hematocrit 42.6 % (37.0-47.0); Imm Gran Abs Auto 0.16 X10*3/uL (0.00-0.03); Imm Gran Pct Auto 0.7 % (0.0-0.4); Leukocyte Esterase Urine Negative (Negative); Lymphocytes Absolute Auto 2.4 X10*3/uL (1.2-4.9); Lymphocytes Percent Auto 9.9 % (20-40); MANUAL DIFF FLAG SCAN; Mean Corpuscular HGB Conc 35.2 g/dl (31.0-35.0); Mean Corpuscular Hemoglobin 32.5 pg (27.0-33.0); Mean Corpuscular Volume 92.4 fL (80.0-98.0); Mean Platelet Volume 10.1 fL (9.4-12.3); Monocytes Absolute Auto 1.2 X10*3/uL (0.1-1.2); Neutrophils Absolute Auto 20.1 x10*3/uL (2.0-8.3); Nitrite Urine Negative (Negative); Platelet Count 314 X10*3/uL (160-400); Red Blood Count 4.61 X10*6/uL (4.20-5.50); SCAN SMEAR FLAG 1; Specific Gravity - Urine 1.015 (1.005-1.025); UMIC TRIGGER UACC YES; Urine Blood Negative (Negative); Urine Ketones Negative (Negative); Urine Protein Negative (Neg-Trace); White Blood Count 24.2 X10*3/uL (4.8-10.8)
[2023-08-08 12:56] LABS: Partial Thromboplastin Time 33.3 SEC (26.0-36.8)
[2023-08-08 13:01] LABS: Bacteria Urine None Seen (None Seen); Hyaline Casts Urine 0-2 /LPF (0-2); RBC Urine 0-2 /HPF (0-2); Squamous Epithelial Cell Urine 0-2 /HPF (0-2); WBC Urine 0-5 /HPF (0-5)
[2023-08-08 13:06] LABS: SLIDE REVIEW VERIFIED
[2023-08-08 13:14] LABS: Alanine Aminotransferase 38 U/L (0-31); Albumin Level 4.2 g/dL (3.5-5.0); Alkaline Phosphatase 80 U/L (39-117); Anion Gap 14 (12-20); Aspartate Amino Transferase 31 U/L (5-31); Bilirubin Total 0.4 mg/dL (0.0-1.0); Blood Urea Nitrogen 14 mg/dL (9-16); Calcium 9.5 mg/dL (8.4-10.2); Carbon Dioxide 20 mmol/L (22-29); Chloride 107 mmol/L (96-108); Creatinine Clr Calc Pharmacy 64.7; Estimated Glomerular Filt Rate > 60; Glucose Random 125 mg/dL (60-115); Lactic Acid 2.4 mmol/L (0.5-2.0); Lipase 10 U/L (8-78); Potassium 4.2 mmol/L (3.3-5.1); Sodium 137 mmol/L (135-145); Total Protein 7.7 g/dL (6.5-8.0)
[2023-08-08 14:17] VITALS: BP 124/51; PULSE 74; RESP 16; TEMP 36.9; O2SAT 96
[2023-08-08 14:45] LABS: Reflex Lactate? Lactic Acid Added
[2023-08-08] MEDS: iohexoL 350 MG/ML 100 ML INFUS..BTL IV (15:14)
[2023-08-08 15:45] LABS: ~Lactic Acid-LAB USE ONLY 1.5 mmol/L (0.5-2.0)
[2023-08-08 17:08] VITALS: BP 119/63; PULSE 71; RESP 16; O2SAT 92
[2023-08-08 18:02] VITALS: BP 119/63; PULSE 71; RESP 16; TEMP 36.9; O2SAT 92
== END 2023-08-08 18:22 | disposition home or self-care (01) ==
PROVIDERS: Emergency Provider Emergency Medicine Emergency Medical Services; PCP Family Medicine
DX: R10.30 Lower abdominal pain, unspecified (principal); I10 Essential (primary) hypertension; E11.9 Type 2 diabetes mellitus without complications; R11.2 Nausea with vomiting, unspecified; Z79.899 Other long term (current) drug therapy
CPT/HCPCS: 36415; 74177; 80053; 81001; 83605; 83690; 85025; 85730; 96361; 96374; 96375; 96376; 99284; J1170; J2405; Q9967

== ENCOUNTER → 2023-08-14 13:20 | Outpatient (BNV) | payer MEDICARE, MEDICAID, SELFPAY | PROVIDERS: PCP Family Medicine; Visit Provider Internal Medicine | DX: K46.0 Unspecified abdominal hernia with obstruction, without gangrene (principal); Z01.810 Encounter for preprocedural cardiovascular examination | CPT/HCPCS: 93010 ==

== ENCOUNTER → 2023-08-25 07:25 | Outpatient (BNV) | payer MEDICARE, MEDICAID, SELFPAY | PROVIDERS: PCP Family Medicine; Visit Provider Physician Assistant Surgical | DX: K46.9 Unspecified abdominal hernia without obstruction or gangrene (principal); K43.2 Incisional hernia without obstruction or gangrene | CPT/HCPCS: 49596; 99024; 99232; 99239; 99499; G0180 ==

== ENCOUNTER → 2023-08-25 07:25 | Outpatient (BNV) | payer MEDICARE, MEDICAID, SELFPAY | PROVIDERS: PCP Family Medicine; Visit Provider Physician Assistant | DX: K46.9 Unspecified abdominal hernia without obstruction or gangrene (principal) | CPT/HCPCS: 99222 ==

== ENCOUNTER 2023-08-26 11:51 | Inpatient (IN) | payer MEDICARE, MEDICAID, SELFPAY ==
[2023-08-14 12:57] VITALS: BP 109/72; PULSE 82; RESP 16; O2SAT 96; BMI 31.2
--- NOTE | 2023-08-14 13:20 | ECG_ITS ---
Test Reason : PREOP Blood Pressure : / mmHG Vent. Rate : 075 BPM Atrial Rate : 075 BPM P-R Int : 160 ms QRS Dur : 078 ms QT Int : 382 ms P-R-T Axes : 038 018 020 degrees QTc Int : 426 ms Normal sinus rhythm Normal ECG When compared with ECG of 29-MAR-2022 23:53, No significant change was found Referred By: Vanessa Hernandez Electronically Signed By:ROSE BANKS
--- NOTE | 2023-08-21 12:28 | P.CONAN_ITS ---
HPI - Anesthesia Eval Consult details Narrative: 62yo F for Repair Multiple Partially Reducible Incisional Hernias w/mesh 08/14/[address] Hernandez [facility] 08/08/23 with abdominal pain and leukocystosis. (Already planned hernia surgery.) PCP visit 08/20/23 for ED f/u. WBC down from 24 to 11. Anesthesia Pre-Procedure Meds Is the patient on any of the following meds?: GLP1/DPP4 PMFSH Active Problems Active Problems: All Active Problems Gastrointestinal dysmotility (Acute) Renal cyst (Acute) Lower abdominal pain (Acute) Epigastric abdominal pain (Acute) Hernia of small intestine (Acute) Sepsis (Acute) Nephrolithiasis (Acute) Abdominal hernia (Acute) Morbid obesity due to excess calories (Acute) Incisional hernia (Acute) UTI (urinary tract infection) (Acute) Diabetes 1.5, managed as type 2 (Acute) Past Medical History Medical History (Updated 08/14/23 @ 13:12 by Mana Fernandez RN) Seasonal allergies Use of cane as ambulatory aid CTS (carpal tunnel syndrome) Abdominal hernia Morbid obesity due to excess calories Incisional hernia UTI (urinary tract infection) Chronic back pain Diverticulitis Diverticulitis History of diverticulitis SIRS (systemic inflammatory response syndrome) Abdominal pain Asthma Depression Migraines Diabetes 1.5, managed as type 2 HTN (hypertension) Family History Family History Father Cancer Surgical History Surgical History Hx of hand surgery Hx of colonoscopy History of esophagogastroduodenoscopy (EGD) History of partial colectomy History of hysterectomy History of cholecystectomy History of Problems with Anesthesia: No Social History Social History Household Members: Spouse Housing: Apartment Are you a primary nurse behavioral health care to a significant other at home: No Do you presently have visiting nurse or other home services: No Alcohol intake: never Comment: Pt. sleeping Patient Tobacco Use Status: Never used Tobacco e-Cigarette/Vaping Use: Never Used Second Hand Smoke Exposure: Yes Use of substances other than those prescribed or required for medical reasons: No Have you been hit, kicked, punched, or otherwise hurt by someone within the past year? If so, by whom?: No Are you DNR?: No Advance Directives: Yes Advance Directives Information Provided: No Advance Directives on File: Yes Advance Directives Date on File: 10/02/20 Recently lost weight without trying: No Nutrition Risks: No Nutritional Risk service: No Current occupational status: disabled Meds Allergies Allergy/AdvReac Type Severity Reaction Status Date / Time acetaminophen [From Tylenol] Allergy Severe Gastrointestinal Verified 08/14/23 09:27 Upset esomeprazole [Nexium] Allergy Severe rash Verified 08/14/23 09:27 famotidine [From PEPCID] Allergy Severe Gastrointestinal Verified 08/14/23 09:27 Upset, rash gabapentin [GABAPENTIN] Allergy Severe ABD PAIN Verified 08/14/23 09:27 lansoprazole [Prevacid] Allergy Severe Gastrointestinal Verified 08/14/23 09:27 Upset, rash Penicillins [PENICILLINS] Allergy Severe RASH, Verified 08/14/23 09:27 stomach pains tramadol Allergy Severe Gastrointestinal Verified 08/14/23 09:27 Upset, hives morphine AdvReac Severe migraine Verified 08/14/23 09:27 headache adhesive tape AdvReac Intermediate Redness of Verified 08/14/23 09:28 Skin Home Medications ?Medication ?Instructions ?Recorded ?Confirmed ?Last Taken ?Type atorvastatin 20 mg tablet 1 tab PO DAILY 04/17/20 08/14/23 11/07/20 History calcium carbonate 600 mg-vitamin 1 tab PO BID 04/17/20 08/14/23 11/07/20 History D3 10 mcg (400 unit) tablet levocetirizine 5 mg tablet 1 tab PO BEDTIME 04/17/20 08/14/23 11/07/20 History sumatriptan succinate 100 mg tablet 100 mg PO DAILY MRX1 PRN Migraine 04/17/20 08/14/23 04/15/20 History Headache blood sugar diagnostic #10 ea 09/28/20 05/28/23 Unknown History lancets 28 gauge #100 ea 09/28/20 05/28/23 Unknown History albuterol sulfate 90 mcg/actuation 2 puff inhalation Q4H PRN wheezing 10/09/20 08/14/23 11/07/20 History aerosol inhaler lisinopril 2.5 mg tablet 2.5 mg PO DAILY 11/07/20 08/14/23 11/07/20 History aspirin 81 mg tablet,delayed 81 mg PO DAILY 12/11/20 08/14/23 Unknown History release budesonide 180 mcg/actuation 1 puff PO BID 12/11/20 08/14/23 Unknown History breath activated powder inhaler (Pulmicort Flexhaler) [id number] 50 1 cap PO Q6H PRN Headache 12/11/20 08/14/23 Unknown History mg-325 mg-40 mg capsule cromolyn 4 % eye drops 1 drp ophthalmic (eye) QID 12/11/20 05/28/23 Unknown History nystatin 100,000 unit/gram topical 1 appl topical BID 12/11/20 05/28/23 Unknown History powder tiotropium bromide 2.5 2 puff inhalation DAILY 12/11/20 08/14/23 Unknown History mcg/actuation mist for inhalation (Spiriva Respimat) tizanidine 4 mg tablet 1 tab PO Q8H 12/11/20 08/14/23 Unknown History zolpidem 10 mg tablet 10 mg PO BEDTIME PRN insomnia 01/04/21 08/14/23 Unknown History bupropion HCl 300 mg 24 hr tablet, 300 mg PO DAILY 07/18/21 05/28/23 Unknown History extended release lorazepam 0.5 mg tablet 0.5 mg PO BID PRN Anxiety 07/18/21 08/14/23 Unknown History ferrous gluconate 324 mg (38 mg 324 mg PO BID 07/29/21 08/14/23 Unknown History iron) tablet sucralfate 100 mg/mL oral 5 ml PO QID 07/29/21 08/14/23 Unknown History suspension (Carafate) dupilumab 300 mg/2 mL subcutaneous 300 mg subcut Q2W 07/11/22 08/14/23 Unknown History pen injector (Dupixent) zafirlukast 20 mg tablet 20 mg PO BID 07/11/22 08/14/23 Unknown History fluticasone furoate 200 1 ea inhalation DAILY 08/04/22 08/14/23 Unknown History mcg-vilanterol 25 mcg/dose inhalation powder (Breo Ellipta) conjugated estrogens 0.625 mg/gram 0.625 mg vaginal DAILY 01/22/23 05/28/23 Unknown History vaginal cream (Premarin) betamethasone dipropionate 0.05 % 1 appl topical DAILY 05/15/23 08/14/23 Unknown History topical cream cyanocobalamin (vitamin B-12) 1,000 mcg IM QMONTH 05/15/23 08/14/23 Unknown History 1,000 mcg/mL injection kit triamcinolone acetonide 0.025 % 1 appl topical DAILY 05/15/23 05/28/23 Unknown History topical cream dulaglutide 0.75 mg/0.5 mL 0.75 mg subcut .QTHURSDAY 06/26/23 08/14/23 Unknown History subcutaneous pen injector (Trulicity) oxycodone 5 mg tablet 7.5 mg PO TID PRN pain 08/14/23 08/14/23 Unknown History Exam Height,Weight and Vital Signs: Height 5 ft 3 in Weight 79.832 kg Last Vital Signs Pulse 82 08/14/23 12:57 Resp 16 08/14/23 12:57 BP 109/72 08/14/23 12:57 Pulse Ox 96 08/14/23 12:57 O2 Del Method Room Air 08/14/23 12:57 Narrative Narrative: EKG 07/2023 Vent. Rate : 075 BPM Atrial Rate : 075 BPM P-R Int : 160 ms QRS Dur : 078 ms QT Int : 382 ms P-R-T Axes : 038 018 020 degrees QTc Int : 426 ms Normal sinus rhythm Normal ECG When compared with ECG of 29-MAR-2022 23:53, No significant change was found ECHO 2021 1. Overall LV sys function is nml with EF 65-70%. 2. Sigmoid shaped septum with focal hypertrophy of the basal septum. Remaining wall thickness is nml 3. RV systolic function is nml 4. Aortic valve is trileaflet 5. Aortic sclerosis without evidence of stenosis Assessment and Plan Assessment Anesthesia Assessment: Chart Reviewed Final Anesthetic Review History of Problems with Anesthesia: No
[2023-08-25] VITALS (19 sets, daily range): BP systolic 114–157; BP diastolic 56–92; PULSE 78–114; RESP 14–24; TEMP 36–37.5; O2SAT 88–96
--- NOTE | 2023-08-25 10:43 | HO.ANESPROP2 ---
[facility] Active Problems Active Problems: All Active Problems Gastrointestinal dysmotility (Acute) Renal cyst (Acute) Lower abdominal pain (Acute) Epigastric abdominal pain (Acute) Hernia of small intestine (Acute) Sepsis (Acute) Nephrolithiasis (Acute) Abdominal hernia (Acute) Morbid obesity due to excess calories (Acute) Incisional hernia (Acute) UTI (urinary tract infection) (Acute) Diabetes 1.5, managed as type 2 (Acute) Past Medical History Medical History Seasonal allergies Use of cane as ambulatory aid CTS (carpal tunnel syndrome) Abdominal hernia Morbid obesity due to excess calories Incisional hernia UTI (urinary tract infection) Chronic back pain Diverticulitis Diverticulitis History of diverticulitis SIRS (systemic inflammatory response syndrome) Abdominal pain Asthma Depression Migraines Diabetes 1.5, managed as type 2 HTN (hypertension) Functional capacity: independent ambulation Patient : No Family History Family History Father Cancer Family history of problems with anesthesia: No Surgical History Surgical History Hx of hand surgery Hx of colonoscopy History of esophagogastroduodenoscopy (EGD) History of partial colectomy History of hysterectomy History of cholecystectomy History of Problems with Anesthesia: No Social History Social History Household Members: Spouse Housing: Apartment Are you a primary health care manager to a significant other at home: No Do you presently have visiting nurse or other home services: No Alcohol intake: never Comment: Pt. sleeping Patient Tobacco Use Status: Never used Tobacco e-Cigarette/Vaping Use: Never Used Second Hand Smoke Exposure: Yes Advance Directives Date on File: 10/02/20 service: No Current occupational status: disabled Meds Allergies Allergy/AdvReac Type Severity Reaction Status Date / Time acetaminophen [From Tylenol] Allergy Severe Gastrointestinal Verified 08/25/23 09:28 Upset esomeprazole [Nexium] Allergy Severe rash Verified 08/25/23 09:28 famotidine [From PEPCID] Allergy Severe Gastrointestinal Verified 08/25/23 09:28 Upset, rash gabapentin [GABAPENTIN] Allergy Severe ABD PAIN Verified 08/25/23 09:28 lansoprazole [Prevacid] Allergy Severe Gastrointestinal Verified 08/25/23 09:28 Upset, rash Penicillins [PENICILLINS] Allergy Severe RASH, Verified 08/25/23 09:28 stomach pains tramadol Allergy Severe Gastrointestinal Verified 08/25/23 09:28 Upset, hives morphine AdvReac Severe migraine Verified 08/25/23 09:28 headache adhesive tape AdvReac Intermediate Redness of Verified 08/25/23 09:28 Skin Active Medications: Current Medications Albuterol Sulfate (Albuterol Sulfate (0.083%) 2.5 Mg/3 Ml Vial.Neb) 2.5 mg INHALE ONCE PRN PRN Reason: Shortness of Breath/Wheezing Heparin Sodium (Porcine) (Heparin Sodium,Porcine 5,000 Unit/Ml Vial) 5,000 unit SUBCUT Q8H LIBORIO Lactated Ringer's (Lr) 1,000 mls @ 100 mls/hr IVCONT .Q10H LIBORIO Sodium Chloride (0.9 % Sodium Chloride Flush 3 Ml Syringe) 3 ml IVFLUSH QSHIFT LIBORIO Home Medications ?Medication ?Instructions ?Recorded ?Confirmed ?Last Taken ?Type atorvastatin 20 mg tablet 1 tab PO DAILY 04/17/20 08/14/23 11/07/20 History calcium carbonate 600 mg-vitamin 1 tab PO BID 04/17/20 08/14/23 11/07/20 History D3 10 mcg (400 unit) tablet levocetirizine 5 mg tablet 1 tab PO BEDTIME 04/17/20 08/14/23 08/25/23 History sumatriptan succinate 100 mg tablet 100 mg PO DAILY MRX1 PRN Migraine 04/17/20 08/14/23 04/15/20 History Headache blood sugar diagnostic #10 ea 09/28/20 05/28/23 Unknown History lancets 28 gauge #100 ea 09/28/20 05/28/23 Unknown History albuterol sulfate 90 mcg/actuation 2 puff inhalation Q4H PRN wheezing 10/09/20 08/14/23 11/07/20 History aerosol inhaler lisinopril 2.5 mg tablet 2.5 mg PO DAILY 11/07/20 08/14/23 11/07/20 History aspirin 81 mg tablet,delayed 81 mg PO DAILY 12/11/20 08/14/23 Unknown History release budesonide 180 mcg/actuation 1 puff PO BID 12/11/20 08/14/23 08/25/23 History breath activated powder inhaler (Pulmicort Flexhaler) [id number] 50 1 cap PO Q6H PRN Headache 12/11/20 08/14/23 Unknown History mg-325 mg-40 mg capsule cromolyn 4 % eye drops 1 drp ophthalmic (eye) QID 12/11/20 05/28/23 Unknown History nystatin 100,000 unit/gram topical 1 appl topical BID 12/11/20 05/28/23 Unknown History powder tiotropium bromide 2.5 2 puff inhalation DAILY 12/11/20 08/14/23 Unknown History mcg/actuation mist for inhalation (Spiriva Respimat) tizanidine 4 mg tablet 1 tab PO Q8H 12/11/20 08/14/23 Unknown History zolpidem 10 mg tablet 10 mg PO BEDTIME PRN insomnia 01/04/21 08/14/23 Unknown History bupropion HCl 300 mg 24 hr tablet, 300 mg PO DAILY 07/18/21 05/28/23 Unknown History extended release lorazepam 0.5 mg tablet 0.5 mg PO BID PRN Anxiety 07/18/21 08/14/23 Unknown History ferrous gluconate 324 mg (38 mg 324 mg PO BID 07/29/21 08/14/23 Unknown History iron) tablet sucralfate 100 mg/mL oral 5 ml PO QID 07/29/21 08/14/23 Unknown History suspension (Carafate) dupilumab 300 mg/2 mL subcutaneous 300 mg subcut Q2W 07/11/22 08/14/23 Unknown History pen injector (Dupixent) zafirlukast 20 mg tablet 20 mg PO BID 07/11/22 08/14/23 Unknown History fluticasone furoate 200 1 ea inhalation DAILY 08/04/22 08/14/23 08/25/23 History mcg-vilanterol 25 mcg/dose inhalation powder (Breo Ellipta) conjugated estrogens 0.625 mg/gram 0.625 mg vaginal DAILY 01/22/23 05/28/23 Unknown History vaginal cream (Premarin) betamethasone dipropionate 0.05 % 1 appl topical DAILY 05/15/23 08/14/23 Unknown History topical cream cyanocobalamin (vitamin B-12) 1,000 mcg IM QMONTH 05/15/23 08/14/23 Unknown History 1,000 mcg/mL injection kit triamcinolone acetonide 0.025 % 1 appl topical DAILY 05/15/23 05/28/23 Unknown History topical cream dulaglutide 0.75 mg/0.5 mL 0.75 mg subcut .QTHURSDAY 06/26/23 08/14/23 08/13/23 History subcutaneous pen injector ([facility]) oxycodone 5 mg tablet 7.5 mg PO TID PRN pain 08/14/23 08/14/23 Unknown History Exam Height,Weight and Vital Signs: Height 5 ft 3 in Weight 79.832 kg Last Vital Signs Pulse 82 08/14/23 12:57 Resp 16 08/14/23 12:57 BP 109/72 08/14/23 12:57 Pulse Ox 96 08/14/23 12:57 O2 Del Method Room Air 08/14/23 12:57 Airway Mallampati Class: II TM Dist: >3cm Neck ROM: Full Heart: RRR Lungs: CTA Assessment and Plan Assessment Anesthesia Assessment: Anesthesia Plan Discussed Final Anesthetic Review Family History of Problems with Anesthesia: No History of Problems with Anesthesia: No NPO: Yes ASA Class: III Final Preanesthetic Review: Meds/Allgs Chart Reviewed, Consent Obtained/Reviewed and Anes Risks/Benef Reviewed Patient Risk: Intermediate Procedure Risk: Low Anesthetic Plan Anesthetic Plan: GA Disposition: Standard PACU
[2023-08-25] MEDS: Lactated Ringers 1,000 ML 100 ML IVCONT ×2 (10:45→17:23)
[2023-08-25 10:59] LABS: Glucose, Whole Blood 145 mg/dL (60-115)
--- NOTE | 2023-08-25 11:25 | MHC.SHP ---
Pre-Procedural Eval Section A - 24 Hr Update-Section A only Date of Service: 08/25/23 The patient is an INPATIENT: No Changes since office visit: No Cold of Flu in the past 2 weeks, No New Medical Problems, No Changes in Medication and No Patient answered all questions The patient has been examined within 24 hours of the surgical procedure. The History & Physical has been completed within 30 days and I have reviewed it.: Yes Section B - Complete if H&P > 30 days Chief Complaint: Unspecified abdominal hernia without obstruction Details of Present Illness: Has multiple incisional hernias after previous Roxy's procedure and ileostomy for diverticulitis Relevant Family History (Specify if Yes): No Relevant Social History: None Present Medications: see Short Stay Collaborative assessment Medical History: Significant History (Obesity, renal cyst, diabetes, history of nephrolithiasis) History of Previous Operations: Relevant previous surgery/procedure and date(s) (Roxy's procedure, ileostomy and reversal) Allergies: Allergies Allergy/AdvReac Type Severity Reaction Status Date / Time acetaminophen [From Tylenol] Allergy Severe Gastrointestinal Verified 08/25/23 09:28 Upset esomeprazole [Nexium] Allergy Severe rash Verified 08/25/23 09:28 famotidine [From PEPCID] Allergy Severe Gastrointestinal Verified 08/25/23 09:28 Upset, rash gabapentin [GABAPENTIN] Allergy Severe ABD PAIN Verified 08/25/23 09:28 lansoprazole [Prevacid] Allergy Severe Gastrointestinal Verified 08/25/23 09:28 Upset, rash Penicillins [PENICILLINS] Allergy Severe RASH, Verified 08/25/23 09:28 stomach pains tramadol Allergy Severe Gastrointestinal Verified 08/25/23 09:28 Upset, hives morphine AdvReac Severe migraine Verified 08/25/23 09:28 headache adhesive tape AdvReac Intermediate Redness of Verified 08/25/23 09:28 Skin Review of Systems Sugical H&P ROS: Negative: Constitution, Cardiovascular, Respiratory, Neurological, Psychiatric, Hem-Onc, Allergic/Immunologic, Gastrointestinal, Genitourinary, Musculoskeletal, Integumentary, Endocrine and Eyes/Ears/Nose/Throat Exam Surgical H&P Exam: Normal: HEENT, Normal: Heart, Normal: Lungs, Normal: Extremities, Normal: Skin and Normal: Neurological and Significant Findings: Abdomen (Multiple hernias) Exam Comment: Morbidly obese Plan Diagnosis/Plan: Unchanged I have reviewed the history and physical and performed a pertinent physical examination on my patient. No changes have occurred unless specified. Time Spent With Patient Time: Total time managing care of this patient today ____ minutes.
--- NOTE | 2023-08-25 11:28 | P.CONAN_ITS ---
[facility] Active Problems Active Problems: All Active Problems Gastrointestinal dysmotility (Acute) Renal cyst (Acute) Lower abdominal pain (Acute) Epigastric abdominal pain (Acute) Hernia of small intestine (Acute) Sepsis (Acute) Nephrolithiasis (Acute) Abdominal hernia (Acute) Morbid obesity due to excess calories (Acute) Incisional hernia (Acute) UTI (urinary tract infection) (Acute) Diabetes 1.5, managed as type 2 (Acute) Past Medical History Medical History Seasonal allergies Use of cane as ambulatory aid CTS (carpal tunnel syndrome) Abdominal hernia Morbid obesity due to excess calories Incisional hernia UTI (urinary tract infection) Chronic back pain Diverticulitis Diverticulitis History of diverticulitis SIRS (systemic inflammatory response syndrome) Abdominal pain Asthma Depression Migraines Diabetes 1.5, managed as type 2 HTN (hypertension) Functional capacity: independent ambulation Patient : No Family History Family History Father Cancer Family history of problems with anesthesia: No Surgical History Surgical History Hx of hand surgery Hx of colonoscopy History of esophagogastroduodenoscopy (EGD) History of partial colectomy History of hysterectomy History of cholecystectomy History of Problems with Anesthesia: No Social History Social History Household Members: Spouse Housing: Apartment Are you a primary children's zoo caretaker to a significant other at home: No Do you presently have visiting nurse or other home services: No Alcohol intake: never Comment: Pt. sleeping Patient Tobacco Use Status: Never used Tobacco e-Cigarette/Vaping Use: Never Used Second Hand Smoke Exposure: Yes Use of substances other than those prescribed or required for medical reasons: No Have you been hit, kicked, punched, or otherwise hurt by someone within the past year? If so, by whom?: No Are you DNR?: No Advance Directives: Yes Advance Directives Information Provided: No Advance Directives on File: Yes Advance Directives Date on File: 10/02/20 Recently lost weight without trying: No Nutrition Risks: No Nutritional Risk Patient : No service: No Current occupational status: disabled Meds Allergies Allergy/AdvReac Type Severity Reaction Status Date / Time acetaminophen [From Tylenol] Allergy Severe Gastrointestinal Verified 08/25/23 09:28 Upset esomeprazole [Nexium] Allergy Severe rash Verified 08/25/23 09:28 famotidine [From PEPCID] Allergy Severe Gastrointestinal Verified 08/25/23 09:28 Upset, rash gabapentin [GABAPENTIN] Allergy Severe ABD PAIN Verified 08/25/23 09:28 lansoprazole [Prevacid] Allergy Severe Gastrointestinal Verified 08/25/23 09:28 Upset, rash Penicillins [PENICILLINS] Allergy Severe RASH, Verified 08/25/23 09:28 stomach pains tramadol Allergy Severe Gastrointestinal Verified 08/25/23 09:28 Upset, hives morphine AdvReac Severe migraine Verified 08/25/23 09:28 headache adhesive tape AdvReac Intermediate Redness of Verified 08/25/23 09:28 Skin Active Medications: Current Medications Albuterol Sulfate (Albuterol Sulfate (0.083%) 2.5 Mg/3 Ml Vial.Neb) 2.5 mg INHALE ONCE PRN PRN Reason: Shortness of Breath/Wheezing Fentanyl (Fentanyl Citrate/Pf 100 Mcg/2 Ml Vial) 25 mcg IVPUSH Q5M PRN; Protocol PRN Reason: Pain, Moderate(Pain Scale 4-6) Stop: 08/25/23 16:55 Heparin Sodium (Porcine) (Heparin Sodium,Porcine 5,000 Unit/Ml Vial) 5,000 unit SUBCUT Q8H [facility] Lactated Ringer's (Lr) 1,000 mls @ 100 mls/hr IVCONT .Q10H [facility] Last Admin: 08/25/23 10:45 Dose: 100 mls/hr Ondansetron HCl (Ondansetron Hcl 4 Mg/2 Ml Vial) 4 mg IVPUSH ONCE PRN PRN Reason: Nausea and Vomiting Stop: 08/25/23 16:56 Sodium Chloride (0.9 % Sodium Chloride Flush 3 Ml Syringe) 3 ml IVFLUSH QSHIFT [facility] Home Medications ?Medication ?Instructions ?Recorded ?Confirmed ?Last Taken ?Type atorvastatin 20 mg tablet 1 tab PO DAILY 04/17/20 08/14/23 11/07/20 History calcium carbonate 600 mg-vitamin 1 tab PO BID 04/17/20 08/14/23 11/07/20 History D3 10 mcg (400 unit) tablet levocetirizine 5 mg tablet 1 tab PO BEDTIME 04/17/20 08/14/23 08/25/23 History sumatriptan succinate 100 mg tablet 100 mg PO DAILY MRX1 PRN Migraine 04/17/20 08/14/23 04/15/20 History Headache blood sugar diagnostic #10 ea 09/28/20 05/28/23 Unknown History lancets 28 gauge #100 ea 09/28/20 05/28/23 Unknown History albuterol sulfate 90 mcg/actuation 2 puff inhalation Q4H PRN wheezing 10/09/20 08/14/23 11/07/20 History aerosol inhaler lisinopril 2.5 mg tablet 2.5 mg PO DAILY 11/07/20 08/14/23 11/07/20 History aspirin 81 mg tablet,delayed 81 mg PO DAILY 12/11/20 08/14/23 Unknown History release budesonide 180 mcg/actuation 1 puff PO BID 12/11/20 08/14/23 08/25/23 History breath activated powder inhaler (Pulmicort Flexhaler) [id number] 50 1 cap PO Q6H PRN Headache 12/11/20 08/14/23 Unknown History mg-325 mg-40 mg capsule cromolyn 4 % eye drops 1 drp ophthalmic (eye) QID 12/11/20 05/28/23 Unknown History nystatin 100,000 unit/gram topical 1 appl topical BID 12/11/20 05/28/23 Unknown History powder tiotropium bromide 2.5 2 puff inhalation DAILY 12/11/20 08/14/23 Unknown History mcg/actuation mist for inhalation (Spiriva Respimat) tizanidine 4 mg tablet 1 tab PO Q8H 12/11/20 08/14/23 Unknown History zolpidem 10 mg tablet 10 mg PO BEDTIME PRN insomnia 01/04/21 08/14/23 Unknown History bupropion HCl 300 mg 24 hr tablet, 300 mg PO DAILY 07/18/21 05/28/23 Unknown History extended release lorazepam 0.5 mg tablet 0.5 mg PO BID PRN Anxiety 07/18/21 08/14/23 Unknown History ferrous gluconate 324 mg (38 mg 324 mg PO BID 07/29/21 08/14/23 Unknown History iron) tablet sucralfate 100 mg/mL oral 5 ml PO QID 07/29/21 08/14/23 Unknown History suspension (Carafate) dupilumab 300 mg/2 mL subcutaneous 300 mg subcut Q2W 07/11/22 08/14/23 Unknown History pen injector (Dupixent) zafirlukast 20 mg tablet 20 mg PO BID 07/11/22 08/14/23 Unknown History fluticasone furoate 200 1 ea inhalation DAILY 08/04/22 08/14/23 08/25/23 History mcg-vilanterol 25 mcg/dose inhalation powder (Breo Ellipta) conjugated estrogens 0.625 mg/gram 0.625 mg vaginal DAILY 01/22/23 05/28/23 Unknown History vaginal cream (Premarin) betamethasone dipropionate 0.05 % 1 appl topical DAILY 05/15/23 08/14/23 Unknown History topical cream cyanocobalamin (vitamin B-12) 1,000 mcg IM QMONTH 05/15/23 08/14/23 Unknown History 1,000 mcg/mL injection kit triamcinolone acetonide 0.025 % 1 appl topical DAILY 05/15/23 05/28/23 Unknown History topical cream dulaglutide 0.75 mg/0.5 mL 0.75 mg subcut .QTHURSDAY 06/26/23 08/14/23 08/13/23 History subcutaneous pen injector (Trulicity) oxycodone 5 mg tablet 7.5 mg PO TID PRN pain 08/14/23 08/14/23 Unknown History Exam Height,Weight and Vital Signs: Height 5 ft 3 in Weight 79.832 kg Last Vital Signs Temp 98.0 F 08/25/23 11:01 Pulse 78 08/25/23 11:01 Resp 18 08/25/23 11:01 BP 149/76 H 08/25/23 11:01 Pulse Ox 96 08/25/23 11:01 O2 Del Method Room Air 08/25/23 11:01 Pertinent Lab Results Pertinent Lab Results: Laboratory Tests 08/25/23 10:49 POC Glucose 145 H Airway Mallampati Class: II TM Dist: >3cm Neck ROM: Full Heart: RRR Lungs: CTA Assessment and Plan Assessment Anesthesia Assessment: Anesthesia Plan Discussed Final Anesthetic Review Family History of Problems with Anesthesia: No History of Problems with Anesthesia: No ASA Class: III Final Preanesthetic Review: Meds/Allgs Chart Reviewed, Consent Obtained/Reviewed and Anes Risks/Benef Reviewed Patient Risk: Intermediate Procedure Risk: Low Anesthetic Plan Anesthetic Plan: GA Disposition: Standard PACU
--- NOTE | 2023-08-25 14:23 | W.PM.OPN ---
Operative Note Operative Note Date of Service: 08/25/23 Narrative: Preop diagnosis: Multiple incisional hernias, morbidly obese with a large pannus Postop diagnosis: Multiple incisional hernias with a large hernia in the lower midline, multiple small hernias in the area of the umbilicus, and a right-sided hernia from the old ileostomy, morbidly obese with a large pannus ; extensive adhesions Procedure: Repair of multiple midline incisional hernias using a large Phasix mesh, and repair of right lower quadrant incisional hernia using a Ventralex mesh with extensive lysis of adhesions; excision of hernia sac Surgeon: Ramses Rabago MD assistant professor of geography: CHARLIE Dennis The patient is a 62-year-old female with a history of sigmoid resection for diverticular disease along with a loop ileostomy. She also had reversal of the loop ileostomy. She had developed multiple hernias in the midline as well as on the old ileostomy site. These contained bowel loops on her CT scan. Review of her latest CT scan shows large hernia on the low midline along with multiple hernias in the area of the umbilicus, and a hernia on the old ileostomy site. She understood the technique of the planned procedure as well as the risks, benefits, and alternatives She was brought to the operating room and placed supine under general anesthesia via endotracheal tube. The abdomen was prepped and draped in the usual sterile fashion. Najera catheter had been inserted. A surgical time-out was done. The patient received cefazolin 2 g IV preoperatively. I made a low midline incision using blade 15. This was carried down through the full-thickness of the skin subcutaneous fat. We continued to gently dissect through the very thick subcutaneous fat and pannus until was able to visualize the hernia sac. I gently defined the hernia sac using a combination of electrocautery and scissors down to the fascial layer. I opened up the hernia sac. We had to do extensive lysis of adhesions because of the presence of small bowel loops within the hernia sac and also tethered to the fascia. This was done using Metzenbaum scissors. This part of the procedure took an extended period of time. Eventually I was able to release entire hernia contents off of the skull defect. I was able to reduce this to the fascial defect. I excised the hernia sac as this was a large sac all the way into the pannus. It was noted that the patient had a large pannus so most of the bowel loops and the sac itself were hanging in the pannus itself. We had to separate this from the pannus to be able to reduce the entire hernia Once the hernia sac was excised, cauterized the subcutaneous layer to control oozing areas We had to do more lysis of adhesions under both sides of the fascia because of adherent bowel loops. Again this part of the procedure took some time. Eventually I was able to release the adhesions and bowel loops from the surrounding areas of the hernia. Palpation of the upper part of the fascia that there were multiple hernias are surrounding the umbilicus in a Guinean-cheese pattern. Therefore had to extend the fascial incision to incorporate all these smaller hernias within the single incision. On the right side with the abdominal wall, there was note of more extensively adherent bowel loops which you had to carefully lyse as well. This extended all the way to the right lower quadrant incisional hernia from the old ileostomy site. This part of the lysis of adhesions again took an extended period time especially in view of the patient's morbid obesity. I had to make a separate incision on the right lower quadrant where the old ileostomy was. This was done using blade 15. This was carried down through the full-thickness of the skin and thick subcutaneous fat. Allowed me to eventually see the hernia sac. I opened up the dissect and excise this off of the rest of the fascial layer. I continued to define the fascial defect. By doing so was able to visualize that there were more adherent bowel loops surrounding this area. Again we had to do more extensive adhesions using Metzenbaum scissors. Eventually is able to release all these adhesions and free up all the small bowel loops I pulled up the small bowel loops the midline incision and examined this. There did not appear to be any bowel injury. There was 1 small serosal tear which we closed with seromuscular Polysorb 3-0 running stitch. This was about 1 cm in length We examined the small bowel was from both proximal all the way to distal. There was 1 area that was matted to each other which appeared to be an old anastomosis as well. Otherwise, there were no other areas of obstruction. I had to do more extensive lysis of interloop adhesions . The fascial defect on the right-sided incisional hernia from the old ileostomy was about 4 cm in longest dimension. Having confirmed good margins surrounding both fascial layers, I proceeded to then reinforced the right lower quadrant hernia with a Ventralex mesh 6 cm in diameter. I secured both clean straps of the mesh the fascial layer. The mesh was flattened and I trimmed the Prolene straps. I closed the fascial defect with a running Maxon 1 stitch. I was able to palpate for the repair of the right lower quadrant incision through the midline incision and mesh appeared to be flat and intact . I then proceeded to clear up the margins of the long midline low midline hernia defect. We had incorporated a smaller [place]inean-cheese type umbilical hernias to this so the aggregate length was about 11 cm. I therefore chose a Phasix 15 x 10 cm mesh. I flattened this underneath the fascia with the positioning device. I secured the skirt of the mesh to the underside of the abdominal wall circumferentially using absorbable tacks. I made sure that there were no bowel loops caught between the mesh and the abdominal wall and that there were no bowel loops I would the tacks. I confirmed that there were no large defects on the fixated parts of the mesh circumferentially. I irrigated. I then closed the fascia with a running Maxon 1 stitch after removing the positioning device of the mesh The thick subcutaneous layer including pannus was reapposed with Polysorb 3-0 interrupted sutures Skin closure was achieved on both the midline incision as well as the right-sided incision with skin lucille. All incisions were infiltrated with Marcaine 0.5% for postop analgesia. Dressings were applied. The procedure was completed The patient tolerated the procedure well. There were no immediate complications. Initial and final counts of sponges and instruments were correct. Estimated blood loss was about 100 cc. The patient was extubated without difficulty and transferred to the recovery room with stable vital signs.
[2023-08-25] MEDS: fentaNYL citrate/PF 100 MCG/2 ML VIAL 25 MCG IVPUSH ×4 (14:50→15:05)
[2023-08-25] MEDS: ondansetron HCL 4 MG/2 ML VIAL IVPUSH ×2 (14:55→22:13)
[2023-08-25] MEDS: LORazepam 2 MG/ML VIAL 0.5 MG IVPUSH (15:40)
[2023-08-25] MEDS: HYDROmorphone HCl 0.5 MG/0.5 ML SYRINGE IVPUSH ×5 (15:44→22:15)
--- NOTE | 2023-08-25 15:49 | PM.EVENT ---
Event Note Date of Service: 08/26/23 Event Note: seen postop c/o incisional pain stable VS good UO explained procedure to her pain mgt with Dilaudid, PO oxycodone and Ofirmev boyfriend updated incentive spirometry Hospitalist consulted in view of multiple medical problems Time Spent With Patient Time: Total time managing care of this patient today ____ minutes.
[2023-08-25] MEDS: 0.9 % Sodium Chloride Flush 3 ML SYRINGE IVFLUSH ×2 (17:08→17:12)
--- NOTE | 2023-08-25 17:13 | PC.NURSE ---
Keep Dania in per CHARLIE Bhatt
[2023-08-25 17:14] LABS: Glucose, Whole Blood 161 mg/dL (60-115)
[2023-08-25] MEDS: Acetaminophen 1,000 MG/100 ML PIGGYBACK 400 MG IV ×2 (17:30→22:17)
[2023-08-25] MEDS: Sucralfate Oral Suspension 1 GM/10 ML ORAL.SUSP 0.5 GM PO ×2 (17:31→20:10)
[2023-08-25] MEDS: SUMAtriptan succinate 100 MG TABLET PO (18:12)
[2023-08-25 18:58] LABS: Anion Gap 18 (12-20); Blood Urea Nitrogen 14 mg/dL (9-16); Calcium 8.3 mg/dL (8.4-10.2); Carbon Dioxide 17 mmol/L (22-29); Chloride 105 mmol/L (96-108); Creatinine Clr Calc Pharmacy 78.8; Estimated Glomerular Filt Rate > 60; Glucose Fasting 151 mg/dL (60-99); Potassium 4.1 mmol/L (3.3-5.1); Sodium 136 mmol/L (135-145)
--- NOTE | 2023-08-25 19:36 | P.CONHOSP_ITS ---
History of Present Illness Data of Consult Service Date: 08/25/23 Requesting physician: Nova Dennis Primary Care Provider: MD ROSALIA Martinez Reason for consult: medical management 62-year-old female with history of hypertension, [id number] type 2 diabetes, mood disorder, asthma, obesity admitted to general surgery for management of multiple hernias with extensive adhesions with consult placed hospitalist service for medical management. She denies any history of cigarette smoking, alcohol use, or illicit drug use. Review of Systems 2 Review of Systems: General: No fevers, malaise, unintentional weight loss HEENT: No blurred vision, diplopia. No sore throat, nasal congestion, rhinorrhea, sinus pain, ear pain Cardiovascular: No chest pain, palpitations, or leg edema Respiratory: No shortness of breath, wheezing, cough GI: No abdominal pain, nausea, vomiting, diarrhea, constipation, melena, hematochezia : No dysuria, hematuria, increased urinary frequency, decreased urinary output MSK: No myalgia, back pain Neuro: No headaches, weakness, paresthesias Skin: No rashes or lesions [facility] Medical History Seasonal allergies Use of cane as ambulatory aid CTS (carpal tunnel syndrome) Abdominal hernia Morbid obesity due to excess calories Incisional hernia UTI (urinary tract infection) Chronic back pain Diverticulitis Diverticulitis History of diverticulitis SIRS (systemic inflammatory response syndrome) Abdominal pain Asthma Depression Migraines Diabetes 1.5, managed as type 2 HTN (hypertension) Functional capacity: independent ambulation Family History Father Cancer Surgical History Hx of hand surgery Hx of colonoscopy History of esophagogastroduodenoscopy (EGD) History of partial colectomy History of hysterectomy History of cholecystectomy Social History Household Members: Significant Other Housing: Apartment Are you a primary personal care aid to a significant other at home: No Do you presently have visiting nurse or other home services: No Alcohol intake: never Comment: Pt. sleeping Patient Tobacco Use Status: Never used Tobacco e-Cigarette/Vaping Use: Never Used Second Hand Smoke Exposure: Yes Use of substances other than those prescribed or required for medical reasons: No Have you been hit, kicked, punched, or otherwise hurt by someone within the past year? If so, by whom?: No Do you feel safe in your current relationship?: Yes Is there a partner from a previous relationship who is making you feel unsafe now?: No Are you made to feel afraid or neglected: No Congregational Healthcare Practices: hindu Are you DNR?: No Advance Directives: Yes Advance Directives Information Provided: No Advance Directives on File: Yes Advance Directives Date on File: 10/02/20 Do you have a plan to hurt others: No Plan Recently lost weight without trying: No Nutrition Risks: No Nutritional Risk Patient : No : No Poor oral hygiene: No service: No Current occupational status: disabled [employer] Allergies Allergy/AdvReac Type Severity Reaction Status Date / Time acetaminophen [From Tylenol] Allergy Severe Gastrointestinal Verified 08/25/23 09:28 Upset esomeprazole [Nexium] Allergy Severe rash Verified 08/25/23 09:28 famotidine [From PEPCID] Allergy Severe Gastrointestinal Verified 08/25/23 09:28 Upset, rash gabapentin [GABAPENTIN] Allergy Severe ABD PAIN Verified 08/25/23 09:28 lansoprazole [Prevacid] Allergy Severe Gastrointestinal Verified 08/25/23 09:28 Upset, rash Penicillins [PENICILLINS] Allergy Severe RASH, Verified 08/25/23 09:28 stomach pains tramadol Allergy Severe Gastrointestinal Verified 08/25/23 09:28 Upset, hives morphine AdvReac Severe migraine Verified 08/25/23 09:28 headache adhesive tape AdvReac Intermediate Redness of Verified 08/25/23 09:28 Skin Active Medications: Current Medications Albuterol Sulfate (Albuterol Sulfate 90 Mcg 8 Gm Inhaler) 2 puff INHALE Q4H PRN PRN Reason: wheezing Atorvastatin Calcium (Atorvastatin Calcium 20 Mg Tablet) 20 mg PO DAILY [facility] Budesonide (Budesonide 180 Mcg Aer.Pow.Ba) 1 puff INHALE RBID [facility] Docusate Sodium (Docusate Sodium 100 Mg Capsule) 100 mg PO BID [facility] Fluticasone/Vilanterol (Fluticasone/Vilanterol 200/25 Blst.W.Dev) 1 puff INHALE RDAILY [facility] Glucose (Glucose Gel 15 Gm Gel..Gram.) 15 gm PO Q15M PRN; Protocol PRN Reason: per Hypoglycemia Standing Ord. Heparin Sodium (Porcine) (Heparin Sodium,Porcine 5,000 Unit/Ml Vial) 5,000 unit SUBCUT Q8H [facility] Hydromorphone HCl (Hydromorphone Hcl 0.5 Mg/0.5 Ml Syringe) 0.5 mg IVPUSH Q5M PRN; Protocol PRN Reason: Pain, Severe (Pain Scale 7-10) Stop: 08/25/23 21:33 Last Admin: 08/25/23 16:15 Dose: 0.5 mg Hydromorphone HCl (Hydromorphone Hcl 0.5 Mg/0.5 Ml Syringe) 0.5 mg IVPUSH Q2H PRN; Protocol PRN Reason: Pain, Severe (Pain Scale 7-10) Last Admin: 08/25/23 18:03 Dose: 0.5 mg Lactated Ringer's (Lr) 1,000 mls @ 80 mls/hr IVCONT .[id number] [facility] Last Admin: 08/25/23 17:23 Dose: 100 mls/hr Dextrose (D10) 250 mls @ 750 mls/hr IV Q15M PRN; Protocol PRN Reason: per Hypoglycemia Standing Ord. Acetaminophen (Ofirmev) 1,000 mg in 100 mls @ 400 mls/hr IV Q6H [facility] Stop: 08/26/23 11:13 Last Infusion: 08/25/23 17:51 Dose: Infused Insulin Human Lispro (Insulin Lispro 100 Unit/Ml 3 Ml Vial) 0 unit SUBCUT QIDACHS [facility]; Protocol Last Admin: 08/25/23 17:27 Dose: Not Given Lisinopril (Lisinopril 2.5 Mg Tablet) 2.5 mg PO DAILY [facility]; Protocol Lorazepam (Lorazepam 0.5 Mg Tablet) 0.5 mg PO BID PRN PRN Reason: Anxiety Montelukast Sodium (Montelukast Sodium 10 Mg Tablet) 10 mg PO BEDTIME [facility] Omeprazole (Omeprazole 40 Mg Capsule.Dr) 40 mg PO BID@0630,1630 [facility] Ondansetron HCl (Ondansetron Hcl 4 Mg/2 Ml Vial) 4 mg IVPUSH Q4H PRN PRN Reason: Nausea and Vomiting Oxycodone HCl (Oxycodone Hcl Immed Release 5 Mg Tablet) 5 mg PO Q4H PRN PRN Reason: Pain, Moderate(Pain Scale 4-6) Oxycodone HCl (Oxycodone Hcl Immed Release 5 Mg Tablet) 10 mg PO Q4H PRN PRN Reason: Pain, Moderate(Pain Scale 4-6) Sodium Chloride (0.9 % Sodium Chloride Flush 3 Ml Syringe) 3 ml IVFLUSH QSHIFT [facility] Last Admin: 08/25/23 17:12 Dose: 3 ml Sucralfate (Sucralfate Oral Suspension 1 Gm/10 Ml Oral.Susp) 0.5 gm PO QID [facility] Last Admin: 08/25/23 17:31 Dose: 0.5 gm Sumatriptan Succinate (Sumatriptan Succinate 100 Mg Tablet) 100 mg PO DAILY MRX1 PRN PRN Reason: Migraine Headache Last Admin: 08/25/23 18:12 Dose: 100 mg Tiotropium [place] (Tiotropium [place] 2.5 Mcg 1 Puff/2.5 Mcg Mist.Inhal) 2 puff INHALE RDAILY [facility] Tizanidine HCl (Tizanidine Hcl 4 Mg Tablet) 4 mg PO TID [facility] Zolpidem Tartrate (Zolpidem Tartrate 5 Mg Tablet) 5 mg PO BEDTIME PRN PRN Reason: insomnia Home Medications ?Medication ?Instructions ?Recorded ?Confirmed ?Last Taken ?Type atorvastatin 20 mg tablet 1 tab PO DAILY 04/17/20 08/14/23 11/07/20 History calcium carbonate 600 mg-vitamin 1 tab PO BID 04/17/20 08/14/23 11/07/20 History D3 10 mcg (400 unit) tablet levocetirizine 5 mg tablet 1 tab PO BEDTIME 04/17/20 08/14/23 08/25/23 History sumatriptan succinate 100 mg tablet 100 mg PO DAILY MRX1 PRN Migraine 04/17/20 08/14/23 04/15/20 History Headache blood sugar diagnostic #10 ea 09/28/20 05/28/23 Unknown History lancets 28 gauge #100 ea 09/28/20 05/28/23 Unknown History albuterol sulfate 90 mcg/actuation 2 puff inhalation Q4H PRN wheezing 06/08/14/23 11/07/20 History aerosol inhaler lisinopril 2.5 mg tablet 2.5 mg PO DAILY 11/07/20 08/14/23 11/07/20 History aspirin 81 mg tablet,delayed 81 mg PO DAILY 12/11/20 08/14/23 Unknown History release budesonide 180 mcg/actuation 1 puff PO BID 12/11/20 08/14/23 08/25/23 History breath activated powder inhaler (Pulmicort Flexhaler) ihlsvrcara-fsvcors-llqnicqz 50 1 cap PO Q6H PRN Headache 12/11/20 08/14/23 Unknown History mg-325 mg-40 mg capsule cromolyn 4 % eye drops 1 drp ophthalmic (eye) QID 12/11/20 08/25/23 Unknown History tiotropium bromide 2.5 2 puff inhalation DAILY 12/11/20 08/14/23 Unknown History mcg/actuation mist for inhalation (Spiriva Respimat) tizanidine 4 mg tablet 1 tab PO Q8H 12/11/20 08/14/23 Unknown History zolpidem 10 mg tablet 10 mg PO BEDTIME PRN insomnia 01/04/21 08/14/23 Unknown History bupropion HCl 300 mg 24 hr tablet, 300 mg PO DAILY 07/18/21 08/25/23 Unknown History extended release lorazepam 0.5 mg tablet 0.5 mg PO BID PRN Anxiety 07/18/21 08/14/23 Unknown History ferrous gluconate 324 mg (38 mg 324 mg PO BID 07/29/21 08/14/23 Unknown History iron) tablet sucralfate 100 mg/mL oral 5 ml PO QID 07/29/21 08/14/23 Unknown History suspension (Carafate) dupilumab 300 mg/2 mL subcutaneous 300 mg subcut Q2W 07/11/22 08/14/23 Unknown History pen injector (Dupixent) zafirlukast 20 mg tablet 20 mg PO BID 07/11/22 08/14/23 Unknown History fluticasone furoate 200 1 ea inhalation DAILY 08/04/22 08/14/23 08/25/23 History mcg-vilanterol 25 mcg/dose inhalation powder (Breo Ellipta) conjugated estrogens 0.625 mg/gram 0.625 mg vaginal DAILY 01/22/23 08/25/23 Unknown History vaginal cream (Premarin) betamethasone dipropionate 0.05 % 1 appl topical DAILY 05/15/23 08/14/23 Unknown History topical cream cyanocobalamin (vitamin B-12) 1,000 mcg IM QMONTH 05/15/23 08/14/23 Unknown History 1,000 mcg/mL injection kit dulaglutide 0.75 mg/0.5 mL 0.75 mg subcut .QTHURSDAY 06/26/23 08/14/23 08/13/23 History [facility] oxycodone 5 mg tablet 7.5 mg PO TID PRN pain 08/14/23 08/14/23 Unknown History Physical Exam 2 Vital Signs and Narrative: Vital Signs: Last Vital Signs Temp 96.8 F 08/25/23 19:06 Pulse 104 H 08/25/23 19:06 Resp 18 08/25/23 19:06 BP 139/84 08/25/23 19:06 Pulse Ox 94 08/25/23 19:06 O2 Del Method Nasal Cannula 08/25/23 19:06 O2 Flow Rate 2.0 08/25/23 19:06 FiO2 93 08/25/23 16:57 BMI result Body Mass Index 31.2 Constitutional - Awake and Alert, No apparent distress Eyes - PERRLA, EOMI Cardiovascular - S1S2, RRR, No edema Respiratory - Normal lung expansion, Normal respiratory effort, No respiratory distress, CTA bilaterally Gastrointestinal - NT / ND; +BS; No rebound or guarding Extremities - no calf tenderness bilaterally, no swelling Skin - Warm/Dry Neurological - Alert & oriented x3 Psychological - Appropriate affect Results Labs 08/25/23 18:19 Labs: Laboratory Results - last 24 hr 08/25/23 08/25/23 08/25/23 10:49 17:04 18:19 Anion Gap 18 Estim Creat Clear Calc 78.8 Estimated GFR > 60 POC Glucose 145 H 161 H Fasting Glucose 151 H Calcium 8.3 L D Assessment and Plan (1) Abdominal hernia: Status: Acute Plan 62-year-old female with history of hypertension, [id number]-[id number] type 2 diabetes, mood disorder, asthma, obesity admitted to general surgery for management of multiple hernias with extensive adhesions with consult placed hospitalist service for medical management. #Hernia repair -plan per general surgery -pain management per General surgery # [id number] type 2 diabetes- glucose levels controlled -POC glucose covered diabetic diet, Admelog on sliding scale -hold oral antihyperglycemics, truclity #HTN -continue lisinopril # persistent asthma, unspecified severity -continue maintenance inhalers, albuterol p.r.n. # mood disorder -continue home meds Thank you for allowing me to participate in this consult. Signing off at this time. Please do not hesitate to call for further questions or for any acute medical concerns
[2023-08-25 19:59] LABS: Glucose, Whole Blood 164 mg/dL (60-115)
[2023-08-25] MEDS: Budesonide 180 MCG AER.POW.BA 1 PUFF INHALE (20:08)
[2023-08-25] MEDS: Montelukast Sodium 10 MG TABLET PO (20:10)
[2023-08-25] MEDS: Docusate Sodium 100 MG CAPSULE PO (20:10)
[2023-08-25] MEDS: TiZANidine HCL 4 MG TABLET PO (20:10)
[2023-08-25] MEDS: Zolpidem Tartrate 5 MG TABLET PO (20:21)
[2023-08-26] VITALS (17 sets, daily range): BP systolic 88–123; BP diastolic 50–60; PULSE 58–92; RESP 14–18; TEMP 36.2–36.8; O2SAT 89–93
[2023-08-26] MEDS: HYDROmorphone HCl 0.5 MG/0.5 ML SYRINGE IVPUSH ×4 (00:21→10:00)
[2023-08-26] MEDS: Lactated Ringers 1,000 ML 100 ML IVCONT (03:28)
[2023-08-26] MEDS: Acetaminophen 1,000 MG/100 ML PIGGYBACK 400 MG IV ×4 (04:55→22:54)
[2023-08-26] MEDS: Sucralfate Oral Suspension 1 GM/10 ML ORAL.SUSP 0.5 GM PO ×4 (07:15→19:49)
[2023-08-26] MEDS: Docusate Sodium 100 MG CAPSULE PO ×2 (07:15→19:50)
[2023-08-26] MEDS: oxyCODONE HCl Immed Release 5 MG TABLET 10 MG PO ×4 (07:15→22:58)
[2023-08-26] MEDS: lisinopriL 2.5 MG TABLET PO (07:15)
[2023-08-26] MEDS: TiZANidine HCL 4 MG TABLET PO ×3 (07:16→19:50)
[2023-08-26] MEDS: Atorvastatin Calcium 20 MG TABLET PO (07:16)
[2023-08-26] MEDS: ondansetron HCL 4 MG/2 ML VIAL IVPUSH ×2 (07:23→20:04)
[2023-08-26 07:54] LABS: Glucose, Whole Blood 163 mg/dL (60-115)
[2023-08-26] MEDS: Tiotropium Bromide 2.5 mcg 1 PUFF/2.5 MCG MIST.INHAL 2 PUFF INHALE (08:08)
[2023-08-26] MEDS: Budesonide 180 MCG AER.POW.BA 1 PUFF INHALE ×2 (08:09→19:38)
--- NOTE | 2023-08-26 08:09 | PM.PNGS ---
Subjective Subjective Date of Service: 08/26/23 <Nova Dennis PA-C - Last Filed: 08/26/23 08:12> 08/26/23 <Ramses Rabago MD - Last Filed: 08/26/23 08:26> Interval history: C/o severe pain at incision sites. Refusing to have powell removed today due to pain. Has not been OOB yet. Reports some nausea due to pain. Passing flatus. Unable to take deep breaths due to pain. <Nova Dennis PA-C - Last Filed: 08/26/23 08:12> Physical Exam Vital Signs: Vital Signs: Last Vital Signs Temp 97.5 F 08/26/23 03:32 Pulse 92 08/26/23 03:32 Resp 18 08/26/23 06:08 BP 115/60 08/26/23 03:32 Pulse Ox 93 08/26/23 03:32 O2 Del Method Nasal Cannula 08/26/23 03:32 O2 Flow Rate 2 08/26/23 03:32 FiO2 93 08/25/23 16:57 BMI result Body Mass Index 31.2 <Nova Dennis PA-C - Last Filed: 08/26/23 08:12> Const: General: comfortable, no acute distress and alert <VICKY Prado Last Filed: 08/26/23 08:12> Orientation/consciousness: patient oriented x3 <Nova Dennis PA-C - Last Filed: 08/26/23 08:12> Resp: Effort & Inspection: normal respiratory effort <Nova Dennis PA-C - Last Filed: 08/26/23 08:12> GI: Other: abdominal binder in place <VICKY Prado Last Filed: 08/26/23 08:12> Inspection: No distended and Yes incision (dressings c/d/i) <VICKY Prado Last Filed: 08/26/23 08:12> Palpation (GI): Soft to palpation, Tenderness to palpation present (GI) (incisional) and no guarding <VICKY Prado Last Filed: 08/26/23 08:12> Percussion: Yes normal to percussion <Nova Dennis PA-C - Last Filed: 08/26/23 08:12> Skin: General skin exam: no rashes or lesions noted <Nova Dennis PA-C - Last Filed: 08/26/23 08:12> Neuro: General: patient oriented x3 <Nova Dennis PA-C - Last Filed: 08/26/23 08:12> Objective Data Active Medications Albuterol Sulfate (Albuterol Sulfate 90 Mcg 8 Gm Inhaler) 2 puff INHALE Q4H PRN PRN Reason: wheezing Atorvastatin Calcium (Atorvastatin Calcium 20 Mg Tablet) 20 mg PO DAILY [facility] Last Admin: 08/26/23 07:16 Dose: 20 mg Documented By: BRANDON Budesonide (Budesonide 180 Mcg Aer.Pow.Ba) 1 puff INHALE RBID [facility] Last Admin: 08/25/23 20:08 Dose: 1 puff Documented By: ROULA Docusate Sodium (Docusate Sodium 100 Mg Capsule) 100 mg PO BID [facility] Last Admin: 08/26/23 07:15 Dose: 100 mg Documented By: BRANDON Fluticasone/Vilanterol (Fluticasone/Vilanterol 200/25 Blst.W.Dev) 1 puff INHALE RDAILY [facility] Glucose (Glucose Gel 15 Gm Gel..Gram.) 15 gm PO Q15M PRN; Protocol PRN Reason: per Hypoglycemia Standing Ord. Heparin Sodium (Porcine) (Heparin Sodium,Porcine 5,000 Unit/Ml Vial) 5,000 unit SUBCUT Q8H [facility] Hydromorphone HCl (Hydromorphone Hcl 0.5 Mg/0.5 Ml Syringe) 0.5 mg IVPUSH Q2H PRN; Protocol PRN Reason: Pain, Severe (Pain Scale 7-10) Last Admin: 08/26/23 05:38 Dose: 0.5 mg Documented By: LAKHWINDER Lactated Ringer's (Lr) 1,000 mls @ 80 mls/hr IVCONT .[id number] [facility] Last Admin: 08/26/23 03:28 Dose: 100 mls/hr Documented By: LAKHWINDER Dextrose (D10) 250 mls @ 750 mls/hr IV Q15M PRN; Protocol PRN Reason: per Hypoglycemia Standing Ord. Acetaminophen (Ofirmev) 1,000 mg in 100 mls @ 400 mls/hr IV Q6H [facility] Stop: 08/26/23 11:13 Last Infusion: 08/26/23 05:10 Dose: Infused Documented By: LAKHWINDER Insulin Human Lispro (Insulin Lispro 100 Unit/Ml 3 Ml Vial) 0 unit SUBCUT QIDACHS [facility]; Protocol Last Admin: 08/25/23 20:07 Dose: Not Given Documented By: KINGS Non-Admin Reason: patient not tolerating diet Lisinopril (Lisinopril 2.5 Mg Tablet) 2.5 mg PO DAILY [facility]; Protocol Last Admin: 08/26/23 07:15 Dose: 2.5 mg Documented By: RBANDON Lorazepam (Lorazepam 0.5 Mg Tablet) 0.5 mg PO BID PRN PRN Reason: Anxiety Montelukast Sodium (Montelukast Sodium 10 Mg Tablet) 10 mg PO BEDTIME [facility] Last Admin: 08/25/23 20:10 Dose: 10 mg Documented By: KINGS Omeprazole (Omeprazole 40 Mg Capsule.Dr) 40 mg PO BID@0630,1630 [facility] Last Admin: 08/26/23 05:41 Dose: Not Given Documented By: LAKHWINDER Non-Admin Reason: pt declined pod #1 Ondansetron HCl (Ondansetron Hcl 4 Mg/2 Ml Vial) 4 mg IVPUSH Q4H PRN PRN Reason: Nausea and Vomiting Last Admin: 08/26/23 07:23 Dose: 4 mg Documented By: BRANDON Oxycodone HCl (Oxycodone Hcl Immed Release 5 Mg Tablet) 5 mg PO Q4H PRN PRN Reason: Pain, Moderate(Pain Scale 4-6) Oxycodone HCl (Oxycodone Hcl Immed Release 5 Mg Tablet) 10 mg PO Q4H PRN PRN Reason: Pain, Moderate(Pain Scale 4-6) Last Admin: 08/26/23 07:15 Dose: 10 mg Documented By: BRANDON Sodium Chloride (0.9 % Sodium Chloride Flush 3 Ml Syringe) 3 ml IVFLUSH QSHIFT [facility] Last Admin: 08/26/23 07:16 Dose: Not Given Documented By: BRANDON Non-Admin Reason: IV Running Sucralfate (Sucralfate Oral Suspension 1 Gm/10 Ml Oral.Susp) 0.5 gm PO QID [facility] Last Admin: 08/26/23 07:15 Dose: 0.5 gm Documented By: BRANDON Sumatriptan Succinate (Sumatriptan Succinate 100 Mg Tablet) 100 mg PO DAILY MRX1 PRN PRN Reason: Migraine Headache Last Admin: 08/25/23 18:12 Dose: 100 mg Documented By: KINGS Tiotropium [place] (Tiotropium [place] 2.5 Mcg 1 Puff/2.5 Mcg Mist.Inhal) 2 puff INHALE RDAILY [facility] Tizanidine HCl (Tizanidine Hcl 4 Mg Tablet) 4 mg PO TID [facility] Last Admin: 08/26/23 07:16 Dose: 4 mg Documented By: BRANDON Zolpidem Tartrate (Zolpidem Tartrate 5 Mg Tablet) 5 mg PO BEDTIME PRN PRN Reason: insomnia Last Admin: 08/25/23 20:21 Dose: 5 mg Documented By: KINGS Comments: patient requested Ambien for insomnia <Nova Dennis PA-C - Last Filed: 08/26/23 08:12> Labs CBC & Chem 7: 08/25/23 18:19 <Nova Dennis PA-C - Last Filed: 08/26/23 08:12> Labs: Laboratory Results - last 24 hr 08/25/23 08/25/23 08/25/23 10:49 17:04 18:19 Anion Gap 18 Estim Creat Clear Calc 78.8 Estimated GFR > 60 POC Glucose 145 H 161 H Fasting Glucose 151 H Calcium 8.3 L D 08/25/23 08/26/23 19:54 07:30 Anion Gap Estim Creat Clear Calc Estimated GFR POC Glucose 164 H 163 H Fasting Glucose Calcium <Nova Dennis PA-C - Last Filed: 08/26/23 08:12> Procedures Date of Service Date of Service: 08/26/23 <Nova Dennis PA-C - Last Filed: 08/26/23 08:12> 08/26/23 <Ramses Rabago MD - Last Filed: 08/26/23 08:26> Progress Note: A&P Assessment and plan (1) Incisional hernia: Status: Acute <Nova Dennis PA-C - Last Filed: 08/26/23 08:12> Assessment and Plan: Admits to incisional pain Getting multiple IV, oral pain meds Instructed on incentive spirometry Encouraged to get out of bed She wants to keep the Powell in place for now Pain management Inpatient care for pain control Seen and examined independently <Ramses Rabago MD - Last Filed: 08/26/23 08:26> Assessment and Plan: POD #1 s/p repair of multiple midline incisional hernias using a large Phasix mesh, and repair of right lower quadrant incisional hernia using a Ventralex mesh with extensive lysis of adhesions; excision of hernia sac. Difficulty with pain control this morning- is on chronic opioid therapy. VSS. Abd benign with appropriate post op tenderness, dressings clean and intact. Cont pain control. Cont abd binder. Encouraged OOB today even just standing at bedside, IS use. Ok to keep powell until tomorrow. Diet as tolerated. Patient understands and is comfortable with plan. Hospitalists following. <Nova Dennis PA-C - Last Filed: 08/26/23 08:12> Time Spent With Patient Time: Total time managing care of this patient today ____ minutes. <Nova Dennis PA-C - Last Filed: 08/26/23 08:12> Quality Stroke Does the patient have a stroke diagnosis?: No <Nova Dennis PA-C - Last Filed: 08/26/23 08:12> VTE Prior VTE?: No <Nova Dennis PA-C - Last Filed: 08/26/23 08:12> VTE Risk Level:: Medical - moderate - high <Nova Dennis PA-C - Last Filed: 08/26/23 08:12> VTE Device Contraindication: N/A - Device Ordered <Nova Dennis PA-C - Last Filed: 08/26/23 08:12> VTE Drug Contraindication: N/A - Med Ordered <VICKY Prado Last Filed: 08/26/23 08:12>
[2023-08-26] MEDS: Fluticasone/Vilanterol 200/25 BLST.W.DEV 1 PUFF INHALE (08:19)
[2023-08-26] MEDS: Insulin Lispro 100 UNIT/ML 3 ML VIAL SUBCUT ×4 (08:25→20:04)
--- NOTE | 2023-08-26 08:53 | HO.POSTANES ---
Post Anesthesia Evaluation Post Anesthesia Evaluation Date of Service: 08/25/23 Vital Signs: Vital Signs Temp Pulse Resp BP Pulse Ox O2 Del Method O2 Flow Rate 08/26/23 08:12 86 18 08/26/23 08:00 97.3 F 82 18 103/55 L 92 Nasal Cannula 2 08/26/23 06:08 18 08/26/23 05:25 18 08/26/23 04:00 18 08/26/23 03:32 97.5 F 92 14 115/60 93 Nasal Cannula 2 08/26/23 03:02 18 08/26/23 02:32 18 08/26/23 00:51 18 08/26/23 00:21 18 08/25/23 23:40 97.7 F 101 H 14 128/63 93 Nasal Cannula 2 Anesthesia: General Endotracheal-GETA Mental Status: Awake Pain Control: Satisfactory Nausea/Vomiting: None Hydration: Adequate Anesthesia-Related Issues: No Anes. Related Issues
[2023-08-26] MEDS: Heparin Sodium,Porcine 5,000 UNIT/ML VIAL 5000 UNIT SUBCUT ×2 (10:00→17:18)
--- NOTE | 2023-08-26 10:23 | MHC.CM.PN ---
pt lives with boyfriend has a ride home and no previous services dc plan home no servies
--- NOTE | 2023-08-26 13:15 | PC.NURSE ---
alignment technician reported bp 88/52, md notified and patient instructed to try to use po pain meds instead of iv, iv fluids continued, good urine output, patient asymptomatic, bp recheck 91/53, notified and told to continue close monitoring but no new orders at this time
[2023-08-26] MEDS: Ketorolac Tromethamine 15 MG/ML VIAL IVPUSH ×2 (13:53→19:47)
[2023-08-26] MEDS: SUMAtriptan succinate 100 MG TABLET PO (14:43)
[2023-08-26] MEDS: LORazepam 0.5 MG TABLET PO (14:43)
[2023-08-26 16:14] LABS: Glucose, Whole Blood 164 mg/dL (60-115)
[2023-08-26] MEDS: Omeprazole 40 MG CAPSULE.DR PO (16:24)
[2023-08-26] MEDS: Lactated Ringers 1,000 ML 80 ML IVCONT (17:11)
--- NOTE | 2023-08-26 17:44 | PM.EVENT ---
Event Note Date of Service: 08/27/23 Event Note: Seen on afternoon rounds Seems to be comfortable but states that she needs her pain meds because of incisional pain Stable otherwise but had soft blood pressures with IV narcotics She says she was able to get out of bed and ambulate Tolerating diet well Encouraged incentive spirometry Continue pain management Looks well overall Patient is likely to stay more than another day for pain control Time Spent With Patient Time: Total time managing care of this patient today ____ minutes.
[2023-08-26] MEDS: Montelukast Sodium 10 MG TABLET PO (19:50)
[2023-08-26 19:58] LABS: Glucose, Whole Blood 160 mg/dL (60-115)
[2023-08-26] MEDS: 0.9 % Sodium Chloride Flush 3 ML SYRINGE IVFLUSH (23:35)
[2023-08-27] VITALS (11 sets, daily range): BP systolic 109–158; BP diastolic 57–71; PULSE 69–78; RESP 14–20; TEMP 36.1–37; O2SAT 92–94
[2023-08-27] MEDS: Heparin Sodium,Porcine 5,000 UNIT/ML VIAL 5000 UNIT SUBCUT ×2 (02:05→09:23)
[2023-08-27] MEDS: Ketorolac Tromethamine 15 MG/ML VIAL IVPUSH ×4 (02:05→19:56)
[2023-08-27] MEDS: HYDROmorphone HCl 0.5 MG/0.5 ML SYRINGE IVPUSH ×2 (04:13→15:22)
[2023-08-27] MEDS: SUMAtriptan succinate 100 MG TABLET PO ×2 (05:32→15:39)
[2023-08-27] MEDS: Acetaminophen 1,000 MG/100 ML PIGGYBACK 400 MG IV ×4 (05:32→23:04)
[2023-08-27] MEDS: Lactated Ringers 1,000 ML 80 ML IVCONT ×2 (05:33→21:28)
[2023-08-27] MEDS: Omeprazole 40 MG CAPSULE.DR PO ×2 (06:17→17:36)
[2023-08-27 06:27] LABS: Anion Gap 14 (12-20); Blood Urea Nitrogen 17 mg/dL (9-16); Calcium 8.4 mg/dL (8.4-10.2); Carbon Dioxide 21 mmol/L (22-29); Chloride 108 mmol/L (96-108); Creatinine Clr Calc Pharmacy 84.4; Estimated Glomerular Filt Rate > 60; Glucose Fasting 135 mg/dL (60-99); Potassium 3.9 mmol/L (3.3-5.1); Sodium 139 mmol/L (135-145)
[2023-08-27 07:45] LABS: Glucose, Whole Blood 127 mg/dL (60-115)
[2023-08-27] MEDS: Budesonide 180 MCG AER.POW.BA 1 PUFF INHALE ×2 (08:18→19:57)
[2023-08-27] MEDS: Fluticasone/Vilanterol 200/25 BLST.W.DEV 1 PUFF INHALE (08:18)
[2023-08-27] MEDS: Tiotropium Bromide 2.5 mcg 1 PUFF/2.5 MCG MIST.INHAL 2 PUFF INHALE (08:18)
--- NOTE | 2023-08-27 09:07 | P.PNGS_ITS ---
Subjective Subjective Date of Service: 08/28/23 Interval history: She says she still has incisional pain Tolerating diet well Says she was able to get out of bed yesterday Does state that pain seems to be better controlled today than yesterday Physical Exam 2 Vital Signs: Vital Signs: Last Vital Signs Temp 96.9 F 08/27/23 07:22 Pulse 69 08/27/23 08:22 Resp 20 08/27/23 08:22 BP 139/65 08/27/23 07:22 Pulse Ox 92 08/27/23 07:22 O2 Del Method Nasal Cannula 08/27/23 07:22 O2 Flow Rate 2.0 08/27/23 07:22 FiO2 93 08/25/23 16:57 Oxygen Flow Rate 2 08/26/23 15:33 BMI result Body Mass Index 31.2 Const: Other: Appears comfortable General: no acute distress Resp: Effort & Inspection: normal respiratory effort Cardio: Rate: regular rate GI: Other: Soft, incisions clean and dry, lucille in place, repair intact, no cellulitis Objective Data Active Medications Albuterol Sulfate (Albuterol Sulfate 90 Mcg 8 Gm Inhaler) 2 puff INHALE Q4H PRN PRN Reason: wheezing Atorvastatin Calcium (Atorvastatin Calcium 20 Mg Tablet) 20 mg PO DAILY [facility] Last Admin: 08/26/23 07:16 Dose: 20 mg Documented By: BRANDON Budesonide (Budesonide 180 Mcg Aer.Pow.Ba) 1 puff INHALE RBID [facility] Last Admin: 08/27/23 08:18 Dose: 1 puff Documented By: MARY Docusate Sodium (Docusate Sodium 100 Mg Capsule) 100 mg PO BID [facility] Last Admin: 08/26/23 19:50 Dose: 100 mg Documented By: KINGS Fluticasone/Vilanterol (Fluticasone/Vilanterol 200/25 Blst.W.Dev) 1 puff INHALE RDAILY [facility] Last Admin: 08/27/23 08:18 Dose: 1 puff Documented By: MARY Glucose (Glucose Gel 15 Gm Gel..Gram.) 15 gm PO Q15M PRN; Protocol PRN Reason: per Hypoglycemia Standing Ord. Heparin Sodium (Porcine) (Heparin Sodium,Porcine 5,000 Unit/Ml Vial) 5,000 unit SUBCUT Q8H [facility] Last Admin: 08/27/23 02:05 Dose: 5,000 unit Documented By: WILMAN Hydromorphone HCl (Hydromorphone Hcl 0.5 Mg/0.5 Ml Syringe) 0.5 mg IVPUSH Q3H PRN; Protocol PRN Reason: Pain, Severe (Pain Scale 7-10) Last Admin: 08/27/23 04:13 Dose: 0.5 mg Documented By: WILMAN Lactated Ringer's (Lr) 1,000 mls @ 80 mls/hr IVCONT .[id number] [facility] Last Admin: 08/27/23 05:33 Dose: 80 mls/hr Documented By: WILMAN Dextrose (D10) 250 mls @ 750 mls/hr IV Q15M PRN; Protocol PRN Reason: per Hypoglycemia Standing Ord. Acetaminophen (Ofirmev) 1,000 mg in 100 mls @ 400 mls/hr IV Q6H [facility] Last Infusion: 08/27/23 05:47 Dose: Infused Documented By: WILMAN Insulin Human Lispro (Insulin Lispro 100 Unit/Ml 3 Ml Vial) 0 unit SUBCUT QIDACHS [facility]; Protocol Last Admin: 08/27/23 07:57 Dose: Not Given Documented By: CT Non-Admin Reason: No Insulin Coverage Ketorolac Tromethamine (Ketorolac Tromethamine 15 Mg/Ml Vial) 15 mg IVPUSH Q6H [facility] Stop: 08/31/23 13:59 Last Admin: 08/27/23 02:05 Dose: 15 mg Documented By: WILMAN Lisinopril (Lisinopril 2.5 Mg Tablet) 2.5 mg PO DAILY [facility]; Protocol Last Admin: 08/26/23 07:15 Dose: 2.5 mg Documented By: BRANDON Lorazepam (Lorazepam 0.5 Mg Tablet) 0.5 mg PO BID PRN PRN Reason: Anxiety Last Admin: 08/26/23 14:43 Dose: 0.5 mg Documented By: BRANDON Montelukast Sodium (Montelukast Sodium 10 Mg Tablet) 10 mg PO BEDTIME [facility] Last Admin: 08/26/23 19:50 Dose: 10 mg Documented By: KINGS Omeprazole (Omeprazole 40 Mg Capsule.Dr) 40 mg PO BID@0630,1630 [facility] Last Admin: 08/27/23 06:17 Dose: 40 mg Documented By: WILMAN Ondansetron HCl (Ondansetron Hcl 4 Mg/2 Ml Vial) 4 mg IVPUSH Q4H PRN PRN Reason: Nausea and Vomiting Last Admin: 08/26/23 20:04 Dose: 4 mg Documented By: KINGS Oxycodone HCl (Oxycodone Hcl Immed Release 5 Mg Tablet) 10 mg PO Q4H PRN PRN Reason: Pain, Moderate(Pain Scale 4-6) Last Admin: 08/26/23 22:58 Dose: 10 mg Documented By: KINGS Sodium Chloride (0.9 % Sodium Chloride Flush 3 Ml Syringe) 3 ml IVFLUSH QSHIFT [facility] Last Admin: 08/27/23 08:17 Dose: Not Given Documented By: CT Non-Admin Reason: IV Running Sucralfate (Sucralfate Oral Suspension 1 Gm/10 Ml Oral.Susp) 0.5 gm PO QID [facility] Last Admin: 08/26/23 19:49 Dose: 0.5 gm Documented By: KINGS Sumatriptan Succinate (Sumatriptan Succinate 100 Mg Tablet) 100 mg PO DAILY MRX1 PRN PRN Reason: Migraine Headache Last Admin: 08/27/23 05:32 Dose: 100 mg Documented By: WILMAN Tiotropium [place] (Tiotropium [place] 2.5 Mcg 1 Puff/2.5 Mcg Mist.Inhal) 2 puff INHALE RDAILY [facility] Last Admin: 08/27/23 08:18 Dose: 2 puff Documented By: MARY Tizanidine HCl (Tizanidine Hcl 4 Mg Tablet) 4 mg PO TID [facility] Last Admin: 08/26/23 19:50 Dose: 4 mg Documented By: KINGS Zolpidem Tartrate (Zolpidem Tartrate 5 Mg Tablet) 5 mg PO BEDTIME PRN PRN Reason: insomnia Last Admin: 08/25/23 20:21 Dose: 5 mg Documented By: KINGS Comments: patient requested Ambien for insomnia Labs 08/27/23 05:46 Labs: Laboratory Results - last 24 hr 08/26/23 08/26/23 08/26/23 11:13 16:04 19:55 Anion Gap Estim Creat Clear Calc Estimated GFR POC Glucose 157 H 164 H 160 H Fasting Glucose Calcium 08/27/23 08/27/23 05:46 07:18 Anion Gap 14 Estim Creat Clear Calc 84.4 Estimated GFR > 60 POC Glucose 127 H Fasting Glucose 135 H Calcium 8.4 Procedures Date of Service Date of Service: 08/28/23 Progress Note: A&P Assessment and plan (1) Incisional hernia: Status: Acute Assessment and Plan: Status post repair of multiple incisional hernias with mesh Continues to require IV pain meds SARY Najera today Encouraged to get out of bed more and start ambulating Incentive spirometry Looks well overall Needs to stay in the hospital for pain management Time Spent With Patient Time: Total time managing care of this patient today ____ minutes. Quality Stroke Does the patient have a stroke diagnosis?: No VTE Prior VTE?: No VTE Risk Level:: Medical - moderate - high VTE Device Contraindication: N/A - Device Ordered VTE Drug Contraindication: N/A - Med Ordered
[2023-08-27] MEDS: Sucralfate Oral Suspension 1 GM/10 ML ORAL.SUSP 0.5 GM PO ×4 (09:22→21:28)
[2023-08-27] MEDS: lisinopriL 2.5 MG TABLET PO (09:23)
[2023-08-27] MEDS: Docusate Sodium 100 MG CAPSULE PO ×2 (09:23→21:29)
[2023-08-27] MEDS: TiZANidine HCL 4 MG TABLET PO ×3 (09:23→21:29)
[2023-08-27] MEDS: Atorvastatin Calcium 20 MG TABLET PO (09:23)
[2023-08-27] MEDS: ondansetron HCL 4 MG/2 ML VIAL IVPUSH ×2 (09:31→15:26)
--- NOTE | 2023-08-27 09:34 | PC.NURSE ---
F/C pulled at this time
[2023-08-27 11:30] LABS: Glucose, Whole Blood 173 mg/dL (60-115)
[2023-08-27] MEDS: Insulin Lispro 100 UNIT/ML 3 ML VIAL SUBCUT ×2 (11:59→21:29)
--- NOTE | 2023-08-27 13:46 | PC.NURSE ---
Patient due to void by 1530. Voided 400mL of clear yellow urine with a PVR of 7mL at 1320. Patient tolerated well. No complaints of pain or discomfort.
--- NOTE | 2023-08-27 15:37 | PM.EVENT ---
Event Note Date of Service: 08/28/23 Event Note: Seen on afternoon rounds Says she was able to spend a lot of time on recliner Says she is taking less pain meds although does complain of incisional pain still in says she does not feel ready to be discharged Tolerating diet Actually looks well uncomfortable Stable vital signs Continue pain management Discharge when pain is controlled with oral pain meds No lifting Incision clean and dry Time Spent With Patient Time: Total time managing care of this patient today ____ minutes.
[2023-08-27 16:32] LABS: Glucose, Whole Blood 145 mg/dL (60-115)
[2023-08-27] MEDS: 0.9 % Sodium Chloride Flush 3 ML SYRINGE IVFLUSH (19:57)
[2023-08-27 20:39] LABS: Glucose, Whole Blood 198 mg/dL (60-115)
[2023-08-27] MEDS: oxyCODONE HCl Immed Release 5 MG TABLET 10 MG PO (21:29)
[2023-08-27] MEDS: Montelukast Sodium 10 MG TABLET PO (21:29)
[2023-08-27] MEDS: Zolpidem Tartrate 5 MG TABLET PO (21:40)
[2023-08-28] VITALS (10 sets, daily range): BP systolic 96–169; BP diastolic 55–69; PULSE 62–90; RESP 16–20; TEMP 36.3–36.6; O2SAT 90–95; BMI 31.9
[2023-08-28] MEDS: HYDROmorphone HCl 0.5 MG/0.5 ML SYRINGE IVPUSH ×3 (00:11→07:59)
[2023-08-28] MEDS: Heparin Sodium,Porcine 5,000 UNIT/ML VIAL 5000 UNIT SUBCUT ×3 (02:00→17:19)
[2023-08-28] MEDS: Ketorolac Tromethamine 15 MG/ML VIAL IVPUSH ×4 (02:00→19:31)
[2023-08-28] MEDS: SUMAtriptan succinate 100 MG TABLET PO ×2 (02:56→17:07)
[2023-08-28] MEDS: ondansetron HCL 4 MG/2 ML VIAL IVPUSH ×2 (02:57→14:21)
[2023-08-28] MEDS: Acetaminophen 1,000 MG/100 ML PIGGYBACK 400 MG IV ×4 (05:07→23:45)
--- NOTE | 2023-08-28 05:29 | PC.NURSE ---
throughout the night pt requested IV pain meds with all schedule meds. pt told me about hx of medical issues, which is she's not ready to go home. however, she said her daughter will help her at home. incision site is [employer], no drainage, no issues noticed. 4-5 times using the bedside commode. pt oxygen drop to 88% w/RA. RT put it on the 1L of Oxygen came up to 94%. will cont. monitor.
[2023-08-28] MEDS: Omeprazole 40 MG CAPSULE.DR PO ×2 (06:05→15:35)
[2023-08-28 07:38] LABS: Glucose, Whole Blood 110 mg/dL (60-115)
[2023-08-28] MEDS: Sucralfate Oral Suspension 1 GM/10 ML ORAL.SUSP 0.5 GM PO ×4 (08:01→20:59)
[2023-08-28] MEDS: lisinopriL 2.5 MG TABLET PO (08:01)
[2023-08-28] MEDS: TiZANidine HCL 4 MG TABLET PO ×3 (08:01→20:59)
[2023-08-28] MEDS: Docusate Sodium 100 MG CAPSULE PO ×2 (08:01→20:59)
[2023-08-28] MEDS: Atorvastatin Calcium 20 MG TABLET PO (08:01)
[2023-08-28] MEDS: Tiotropium Bromide 2.5 mcg 1 PUFF/2.5 MCG MIST.INHAL 2 PUFF INHALE (08:05)
[2023-08-28] MEDS: Fluticasone/Vilanterol 200/25 BLST.W.DEV 1 PUFF INHALE (08:06)
[2023-08-28] MEDS: Budesonide 180 MCG AER.POW.BA 1 PUFF INHALE ×2 (08:06→20:23)
--- NOTE | 2023-08-28 08:06 | PM.PNGS ---
Subjective Subjective Date of Service: 08/28/23 <Nova Dennis PA-C - Last Filed: 08/28/23 08:12> 08/28/23 <Ramses Rabago MD - Last Filed: 08/28/23 14:07> Interval history: Continues to c/o severe pain necessitating IV pain meds but trying to use them less. OOB to recliner and ambulated a little yesterday. Tolerating diet. <Nova Dennis PA-C - Last Filed: 08/28/23 08:12> Physical Exam Vital Signs: Vital Signs: Last Vital Signs Temp 97.8 F 08/28/23 07:29 Pulse 79 08/28/23 07:29 Resp 16 08/28/23 07:29 BP 157/69 H 08/28/23 07:29 Pulse Ox 95 08/28/23 07:29 O2 Del Method Room Air 08/28/23 07:29 O2 Flow Rate 2 08/28/23 03:38 FiO2 93 08/25/23 16:57 Oxygen Flow Rate 2 08/26/23 15:33 BMI result Body Mass Index 31.2 <Nova Dennis PA-C - Last Filed: 08/28/23 08:12> Const: General: comfortable, no acute distress and alert <VICKY Prado Last Filed: 08/28/23 08:12> Orientation/consciousness: patient oriented x3 <VICKY Prado Last Filed: 08/28/23 08:12> Resp: Effort & Inspection: normal respiratory effort <VICKY Prado Last Filed: 08/28/23 08:12> GI: Inspection: No distended and Yes incision (clean ) <VICKY Prado Last Filed: 08/28/23 08:12> Palpation (GI): Soft to palpation and Tenderness to palpation present (GI) <VICKY Prado Last Filed: 08/28/23 08:12> Skin: General skin exam: no rashes or lesions noted <VICKY Prado Last Filed: 08/28/23 08:12> Neuro: General: patient oriented x3 <Nova Dennis PA-C - Last Filed: 08/28/23 08:12> Objective Data Active Medications Albuterol Sulfate (Albuterol Sulfate 90 Mcg 8 Gm Inhaler) 2 puff INHALE Q4H PRN PRN Reason: wheezing Atorvastatin Calcium (Atorvastatin Calcium 20 Mg Tablet) 20 mg PO DAILY [facility] Last Admin: 08/27/23 09:23 Dose: 20 mg Documented By: ADALBERTO Budesonide (Budesonide 180 Mcg Aer.Pow.Ba) 1 puff INHALE RBID [facility] Last Admin: 08/28/23 08:06 Dose: 1 puff Documented By: JAZMYN Docusate Sodium (Docusate Sodium 100 Mg Capsule) 100 mg PO BID [facility] Last Admin: 08/27/23 21:29 Dose: 100 mg Documented By: BRANDON Fluticasone/Vilanterol (Fluticasone/Vilanterol 200/25 Blst.W.Dev) 1 puff INHALE RDAILY [facility] Last Admin: 08/28/23 08:06 Dose: 1 puff Documented By: JAZMYN Glucose (Glucose Gel 15 Gm Gel..Gram.) 15 gm PO Q15M PRN; Protocol PRN Reason: per Hypoglycemia Standing Ord. Heparin Sodium (Porcine) (Heparin Sodium,Porcine 5,000 Unit/Ml Vial) 5,000 unit SUBCUT Q8H [facility] Last Admin: 08/28/23 02:00 Dose: 5,000 unit Documented By: WILMAN Hydromorphone HCl (Hydromorphone Hcl 0.5 Mg/0.5 Ml Syringe) 0.5 mg IVPUSH Q3H PRN; Protocol PRN Reason: Pain, Severe (Pain Scale 7-10) Last Admin: 08/28/23 04:05 Dose: 0.5 mg Documented By: WILMAN Lactated Ringer's (Lr) 1,000 mls @ 80 mls/hr IVCONT .[id number] [facility] Last Admin: 08/27/23 21:28 Dose: 80 mls/hr Documented By: BRANDON Dextrose (D10) 250 mls @ 750 mls/hr IV Q15M PRN; Protocol PRN Reason: per Hypoglycemia Standing Ord. Acetaminophen (Ofirmev) 1,000 mg in 100 mls @ 400 mls/hr IV Q6H [facility] Last Infusion: 08/28/23 05:22 Dose: Infused Documented By: WILMAN Insulin Human Lispro (Insulin Lispro 100 Unit/Ml 3 Ml Vial) 0 unit SUBCUT QIDACHS [facility]; Protocol Last Admin: 08/28/23 07:44 Dose: Not Given Documented By: CT Non-Admin Reason: No Insulin Coverage Ketorolac Tromethamine (Ketorolac Tromethamine 15 Mg/Ml Vial) 15 mg IVPUSH Q6H [facility] Stop: 08/31/23 13:59 Last Admin: 08/28/23 02:00 Dose: 15 mg Documented By: WILMAN Lisinopril (Lisinopril 2.5 Mg Tablet) 2.5 mg PO DAILY [facility]; Protocol Last Admin: 08/27/23 09:23 Dose: 2.5 mg Documented By: ADALBERTO Lorazepam (Lorazepam 0.5 Mg Tablet) 0.5 mg PO BID PRN PRN Reason: Anxiety Last Admin: 08/26/23 14:43 Dose: 0.5 mg Documented By: BRANDON Montelukast Sodium (Montelukast Sodium 10 Mg Tablet) 10 mg PO BEDTIME [facility] Last Admin: 08/27/23 21:29 Dose: 10 mg Documented By: BRANDON Omeprazole (Omeprazole 40 Mg Capsule.Dr) 40 mg PO BID@0630,1630 [facility] Last Admin: 08/28/23 06:05 Dose: 40 mg Documented By: WILMAN Ondansetron HCl (Ondansetron Hcl 4 Mg/2 Ml Vial) 4 mg IVPUSH Q4H PRN PRN Reason: Nausea and Vomiting Last Admin: 08/28/23 02:57 Dose: 4 mg Documented By: WILMAN Oxycodone HCl (Oxycodone Hcl Immed Release 5 Mg Tablet) 10 mg PO Q4H PRN PRN Reason: Pain, Moderate(Pain Scale 4-6) Last Admin: 08/27/23 21:29 Dose: 10 mg Documented By: BRANDON Sodium Chloride (0.9 % Sodium Chloride Flush 3 Ml Syringe) 3 ml IVFLUSH QSHIFT [facility] Last Admin: 08/27/23 19:57 Dose: 3 ml Documented By: WILMAN Sucralfate (Sucralfate Oral Suspension 1 Gm/10 Ml Oral.Susp) 0.5 gm PO QID [facility] Last Admin: 08/27/23 21:28 Dose: 0.5 gm Documented By: BRANDON Sumatriptan Succinate (Sumatriptan Succinate 100 Mg Tablet) 100 mg PO DAILY MRX1 PRN PRN Reason: Migraine Headache Last Admin: 08/28/23 02:56 Dose: 100 mg Documented By: WILMAN Tiotropium [place] (Tiotropium [place] 2.5 Mcg 1 Puff/2.5 Mcg Mist.Inhal) 2 puff INHALE RDAILY [facility] Last Admin: 08/28/23 08:05 Dose: 2 puff Documented By: JAZMYN Tizanidine HCl (Tizanidine Hcl 4 Mg Tablet) 4 mg PO TID [facility] Last Admin: 08/27/23 21:29 Dose: 4 mg Documented By: BRANDON Zolpidem Tartrate (Zolpidem Tartrate 5 Mg Tablet) 5 mg PO BEDTIME PRN PRN Reason: insomnia Last Admin: 08/27/23 21:40 Dose: 5 mg Documented By: BRANDON <Nova Dennis PA-C - Last Filed: 08/28/23 08:12> Labs CBC & Chem 7: 08/27/23 05:46 <Nova Dennis PA-C - Last Filed: 08/28/23 08:12> Labs: Laboratory Results - last 24 hr 08/27/23 08/27/23 08/27/23 11:18 15:59 20:12 POC Glucose 173 H 145 H 198 H 08/28/23 07:33 POC Glucose 110 <Nova Dennis PA-C - Last Filed: 08/28/23 08:12> Procedures Date of Service Date of Service: 08/28/23 <Nova Dennis PA-C - Last Filed: 08/28/23 08:12> 08/28/23 <Ramses Rabago MD - Last Filed: 08/28/23 14:07> Progress Note: A&P Assessment and plan (1) Incisional hernia: Status: Acute <Nova Dennis PA-C - Last Filed: 08/28/23 08:12> Assessment and Plan: pain control improving says she has been taking much less IV pain meds ambulated good oral intake incision clean, abd soft pain mgt home jenny? <Ramses Rabago MD - Last Filed: 08/28/23 14:07> Assessment and Plan: POD #3 s/p repair of multiple midline incisional hernias using a large Phasix mesh, and repair of right lower quadrant incisional hernia using a Ventralex mesh with extensive lysis of adhesions; excision of hernia sac. Continues to have difficulty with pain necessitating IV analgesics. Abd remains benign with appropriate post op tenderness, incisions clean. Cont pain control. Cont abd binder. Home when comfortable on oral analgesics. <Nova Dennis PA-C - Last Filed: 08/28/23 08:12> Time Spent With Patient Time: Total time managing care of this patient today ____ minutes. <Nova Dennis PA-C - Last Filed: 08/28/23 08:12> Quality Stroke Does the patient have a stroke diagnosis?: No <Nova Dennis PA-C - Last Filed: 08/28/23 08:12> VTE Prior VTE?: No <Nova Dennis PA-C - Last Filed: 08/28/23 08:12> VTE Risk Level:: Medical - moderate - high <Nova Dennis PA-C - Last Filed: 08/28/23 08:12> VTE Device Contraindication: N/A - Device Ordered <Nova Dennis PA-C - Last Filed: 08/28/23 08:12> VTE Drug Contraindication: N/A - Med Ordered <VICKY Prado Last Filed: 08/28/23 08:12>
[2023-08-28 11:27] LABS: Glucose, Whole Blood 112 mg/dL (60-115)
[2023-08-28] MEDS: oxyCODONE HCl Immed Release 5 MG TABLET 10 MG PO ×3 (11:30→21:06)
--- NOTE | 2023-08-28 12:31 | PC.NURSE ---
Patient verbalized permission to share information about her care with granddaughter Pati Tracy and daughter Pati Machado.
--- NOTE | 2023-08-28 14:49 | MHC.CM.PN ---
per rounds pt not reaqdy for dc at this time dc plan remains home no servies
[2023-08-28 16:29] LABS: Glucose, Whole Blood 135 mg/dL (60-115)
[2023-08-28] MEDS: 0.9 % Sodium Chloride Flush 3 ML SYRINGE IVFLUSH ×2 (17:23→19:31)
[2023-08-28] MEDS: Montelukast Sodium 10 MG TABLET PO (20:59)
[2023-08-28] MEDS: Zolpidem Tartrate 5 MG TABLET PO (21:07)
[2023-08-28 21:11] LABS: Glucose, Whole Blood 94 mg/dL (60-115)
[2023-08-29] MEDS: Ketorolac Tromethamine 15 MG/ML VIAL IVPUSH ×2 (01:29→08:05)
[2023-08-29] MEDS: Heparin Sodium,Porcine 5,000 UNIT/ML VIAL 5000 UNIT SUBCUT (01:37)
[2023-08-29] MEDS: ondansetron HCL 4 MG/2 ML VIAL IVPUSH (01:41)
[2023-08-29] MEDS: oxyCODONE HCl Immed Release 5 MG TABLET 10 MG PO ×3 (03:24→11:31)
[2023-08-29] MEDS: SUMAtriptan succinate 100 MG TABLET PO (03:31)
[2023-08-29 03:36] VITALS: BP 157/77; PULSE 79; RESP 16; TEMP 36.6; O2SAT 95
[2023-08-29] MEDS: Acetaminophen 1,000 MG/100 ML PIGGYBACK 400 MG IV (05:53)
[2023-08-29] MEDS: Omeprazole 40 MG CAPSULE.DR PO (05:54)
[2023-08-29 07:28] LABS: Glucose, Whole Blood 111 mg/dL (60-115)
[2023-08-29 07:32] VITALS: BP 152/76; PULSE 73; RESP 14; TEMP 36.3; O2SAT 92
[2023-08-29] MEDS: 0.9 % Sodium Chloride Flush 3 ML SYRINGE IVFLUSH (08:04)
[2023-08-29] MEDS: lisinopriL 2.5 MG TABLET PO (08:05)
[2023-08-29] MEDS: Atorvastatin Calcium 20 MG TABLET PO (08:05)
[2023-08-29] MEDS: Docusate Sodium 100 MG CAPSULE PO (08:05)
[2023-08-29] MEDS: TiZANidine HCL 4 MG TABLET PO (08:05)
[2023-08-29] MEDS: Sucralfate Oral Suspension 1 GM/10 ML ORAL.SUSP 0.5 GM PO (08:06)
[2023-08-29] MEDS: Budesonide 180 MCG AER.POW.BA 1 PUFF INHALE (08:29)
[2023-08-29] MEDS: Tiotropium Bromide 2.5 mcg 1 PUFF/2.5 MCG MIST.INHAL 2 PUFF INHALE (08:30)
[2023-08-29] MEDS: Fluticasone/Vilanterol 200/25 BLST.W.DEV 1 PUFF INHALE (08:30)
[2023-08-29 08:32] VITALS: PULSE 81; RESP 18; O2SAT 91
--- NOTE | 2023-08-29 09:17 | P.PNGS_ITS ---
Subjective Subjective Date of Service: 08/29/23 Interval history: feels well pain controlled with PO meds getting out of bed more good oral intake Physical Exam 2 Vital Signs: Vital Signs: Last Vital Signs Temp 97.4 F 08/29/23 07:32 Pulse 81 08/29/23 08:32 Resp 18 08/29/23 08:32 BP 152/76 H 08/29/23 07:32 Pulse Ox 92 08/29/23 07:32 O2 Del Method Room Air 08/29/23 07:32 O2 Flow Rate 2 08/28/23 03:38 FiO2 93 08/25/23 16:57 Oxygen Flow Rate 2 08/26/23 15:33 BMI result Body Mass Index 31.9 Const: General: comfortable and no acute distress Resp: Effort & Inspection: normal respiratory effort GI: Other: incision clean and dyr, repair intact Palpation (GI): Soft to palpation, not firm and no guarding Objective Data Active Medications Albuterol Sulfate (Albuterol Sulfate 90 Mcg 8 Gm Inhaler) 2 puff INHALE Q4H PRN PRN Reason: wheezing Atorvastatin Calcium (Atorvastatin Calcium 20 Mg Tablet) 20 mg PO DAILY [facility] Last Admin: 08/29/23 08:05 Dose: 20 mg Documented By: DELILAH Budesonide (Budesonide 180 Mcg Aer.Pow.Ba) 1 puff INHALE RBID [facility] Last Admin: 08/29/23 08:29 Dose: 1 puff Documented By: GISSEL Docusate Sodium (Docusate Sodium 100 Mg Capsule) 100 mg PO BID [facility] Last Admin: 08/29/23 08:05 Dose: 100 mg Documented By: DELILAH Fluticasone/Vilanterol (Fluticasone/Vilanterol 200/25 Blst.W.Dev) 1 puff INHALE RDAILY [facility] Last Admin: 08/29/23 08:30 Dose: 1 puff Documented By: GISSEL Glucose (Glucose Gel 15 Gm Gel..Gram.) 15 gm PO Q15M PRN; Protocol PRN Reason: per Hypoglycemia Standing Ord. Heparin Sodium (Porcine) (Heparin Sodium,Porcine 5,000 Unit/Ml Vial) 5,000 unit SUBCUT Q8H [facility] Last Admin: 08/29/23 01:37 Dose: 5,000 unit Documented By: FRANCISCO Dextrose (D10) 250 mls @ 750 mls/hr IV Q15M PRN; Protocol PRN Reason: per Hypoglycemia Standing Ord. Acetaminophen (Ofirmev) 1,000 mg in 100 mls @ 400 mls/hr IV Q6H [facility] Last Infusion: 08/29/23 06:24 Dose: Infused Documented By: FRANCISCO Insulin Human Lispro (Insulin Lispro 100 Unit/Ml 3 Ml Vial) 0 unit SUBCUT QIDACHS [facility]; Protocol Last Admin: 08/29/23 07:37 Dose: Not Given Documented By: DELILAH Non-Admin Reason: No Insulin Coverage Ketorolac Tromethamine (Ketorolac Tromethamine 15 Mg/Ml Vial) 15 mg IVPUSH Q6H [facility] Stop: 08/31/23 13:59 Last Admin: 08/29/23 08:05 Dose: 15 mg Documented By: DELILAH Lisinopril (Lisinopril 2.5 Mg Tablet) 2.5 mg PO DAILY [facility]; Protocol Last Admin: 08/29/23 08:05 Dose: 2.5 mg Documented By: DELILAH Lorazepam (Lorazepam 0.5 Mg Tablet) 0.5 mg PO BID PRN PRN Reason: Anxiety Last Admin: 08/26/23 14:43 Dose: 0.5 mg Documented By: BRANDON Montelukast Sodium (Montelukast Sodium 10 Mg Tablet) 10 mg PO BEDTIME [facility] Last Admin: 08/28/23 20:59 Dose: 10 mg Documented By: WILMAN Omeprazole (Omeprazole 40 Mg Capsule.) 40 mg PO BID@0630,1630 [facility] Last Admin: 08/29/23 05:54 Dose: 40 mg Documented By: FRANCISCO Ondansetron HCl (Ondansetron Hcl 4 Mg/2 Ml Vial) 4 mg IVPUSH Q4H PRN PRN Reason: Nausea and Vomiting Last Admin: 08/29/23 01:41 Dose: 4 mg Documented By: FRANCISCO Oxycodone HCl (Oxycodone Hcl Immed Release 5 Mg Tablet) 10 mg PO Q4H PRN PRN Reason: Pain, Moderate(Pain Scale 4-6) Last Admin: 08/29/23 07:18 Dose: 10 mg Documented By: DELILAH Sodium Chloride (0.9 % Sodium Chloride Flush 3 Ml Syringe) 3 ml IVFLUSH QSHIFT [facility] Last Admin: 08/29/23 08:04 Dose: 3 ml Documented By: DELILAH Sucralfate (Sucralfate Oral Suspension 1 Gm/10 Ml Oral.Susp) 0.5 gm PO QID [facility] Last Admin: 08/29/23 08:06 Dose: 0.5 gm Documented By: DELILAH Sumatriptan Succinate (Sumatriptan Succinate 100 Mg Tablet) 100 mg PO DAILY MRX1 PRN PRN Reason: Migraine Headache Last Admin: 08/29/23 03:31 Dose: 100 mg Documented By: FRANCISCO Tiotropium [place] (Tiotropium [place] 2.5 Mcg 1 Puff/2.5 Mcg Mist.Inhal) 2 puff INHALE RDAILY [facility] Last Admin: 08/29/23 08:30 Dose: 2 puff Documented By: GISSEL Tizanidine HCl (Tizanidine Hcl 4 Mg Tablet) 4 mg PO TID [facility] Last Admin: 08/29/23 08:05 Dose: 4 mg Documented By: DELILAH Zolpidem Tartrate (Zolpidem Tartrate 5 Mg Tablet) 5 mg PO BEDTIME PRN PRN Reason: insomnia Last Admin: 08/28/23 21:07 Dose: 5 mg Documented By: WILMAN Labs 08/27/23 05:46 Labs: Laboratory Results - last 24 hr 08/28/23 08/28/23 08/28/23 11:20 16:19 20:47 POC Glucose 112 135 H 94 08/29/23 07:23 POC Glucose 111 Procedures Date of Service Date of Service: 08/29/23 Progress Note: A&P Assessment and plan (1) Incisional hernia: Status: Acute Assessment and Plan: s/p repair with mesh looks well she says she is ready to be discharged has oxycodone at home no lifting instructions reviewed with her ffup in office Time Spent With Patient Time: Total time managing care of this patient today ____ minutes. Quality Stroke Does the patient have a stroke diagnosis?: No VTE Prior VTE?: No VTE Risk Level:: Medical - moderate - high VTE Device Contraindication: N/A - Device Ordered VTE Drug Contraindication: N/A - Med Ordered
--- NOTE | 2023-08-29 09:31 | W.MHC.F2F ---
Service Date Service Date: 08/29/23 Encounter Date of encounter: 08/29/23 Reasons for Services Signs and symptoms assessed: patient with incisional pain Reason for physical therapy: home safety and mobility Homebound: Leaving the home is medically contraindicated at this time without the asist of a device and/or another person due th the listed conditions above and below. Reason homebound: unsteady gait / fall risk and pain with ambulation Certification: Based on the above findings, I certify that this patient is confined to the home and needs intermittent assisted care, physical therapy and/or speech therapy, or continues to need occupational therapy. The patient is under my care, and I have initiated the establishment of the plan of care. The patient will be followed by a physician who will periodically review the plan of care. Time Spent With Patient Time: Total time managing care of this patient today ____ minutes.
--- NOTE | 2023-08-29 09:50 | MHC.CM.PN ---
Addendum entered by Gerri Oleary RN 08/29/23 09:53: IMM delivered. Original Note: EMR reviewed. Patient is medically cleared for dc home w/ PT services. Patient does not have a preference. [facility] has accepted. Patient's will provide transportation home @ 11am. RN aware.
[2023-08-29 11:20] LABS: Glucose, Whole Blood 146 mg/dL (60-115)
--- NOTE | 2023-08-31 14:10 | PM.DS ---
DS: Providers Provider Date of Service: 08/29/23 Date of admission: 08/26/23 11:51 Date of discharge: 08/29/23 Primary care physician: Cooper Adam MD Attending physician on admission: Ramses Rabago Consults: 08/25/23 16:59 Consult to Hospitalist Routine Comment: Consulting Provider: Hospitalist Reason For Exam: s/p incisional hernia repair, medical management Attending physician on discharge: Ramses Rabago DS: Diagnosis Discharge Diagnosis (1) Incisional hernia: Status: Acute DS: Summary Hospital Course Hospital Course: HPI AT ADMISSION: The patient is a 62-year-old female with a history of sigmoid resection for diverticular disease along with a loop ileostomy. She also had reversal of the loop ileostomy. She had developed multiple hernias in the midline as well as on the old ileostomy site. These contained bowel loops on her CT scan. Review of her latest CT scan shows large hernia on the low midline along with multiple hernias in the area of the umbilicus, and a hernia on the old ileostomy site. She now presents for repair of these incisional hernias. HOSPITAL COURSE: On 08/25/23, repair of multiple midline incisional hernias using a large Phasix mesh, and repair of right lower quadrant incisional hernia using a Ventralex mesh with extensive lysis of adhesions; excision of hernia sac was performed by Dr. Rabago without complication. The patient tolerated the procedure well and was admitted post operatively for observation. Hospitalist consult was obtained for management of her medical comorbidities. She had an uneventful but slow recovery course. She had difficulty with pain as she is on chronic narcotics and was necessitating IV analgesics and remained inpatient until POD #5 for pain control. Her activity was gradually increased during her recovery course. PT was consulted who recommended home with PT services. She was eventually weaned off IV analgesics and transitioned to oral. On the day of discharge, she was tolerating a solid diet without nausea or vomiting, had good pain control on oral analgesics. Her abdomen was benign with intact lucille and clean incisions. She was discharged to home on 08/29/23 in stable condition with PT services. She is to follow up in the office in 2 weeks. Status at Discharge Functional status at discharge: independent ambulation Overall status at discharge: patient is progressing back to baseline Time Attestation Discharge Coordination Time (in mins): 35 Quality: Safe Use of Opioids Does Pt have an Active Cancer Diagnosis on the Problem List?: No Quality: Stroke Does the patient have a stroke diagnosis?: No Physical Exam Vital Signs: Vital Signs: Last Vital Signs Temp 97.4 F 08/29/23 07:32 Pulse 81 08/29/23 08:32 Resp 18 08/29/23 08:32 BP 152/76 H 08/29/23 07:32 Pulse Ox 92 08/29/23 07:32 O2 Del Method Room Air 08/29/23 07:32 O2 Flow Rate 2 08/28/23 03:38 FiO2 93 08/25/23 16:57 Oxygen Flow Rate 2 08/26/23 15:33 BMI result Body Mass Index 31.9 Const: General: comfortable, no acute distress and alert Orientation/consciousness: patient oriented x3 Resp: Effort & Inspection: normal respiratory effort GI: Inspection: No distended and Yes incision (midline and right lateral incisions clean ) Palpation (GI): Soft to palpation, Tenderness to palpation present (GI) (mild incisional) and no guarding Skin: General skin exam: no rashes or lesions noted Neuro: General: patient oriented x3 DS: Data Data Completed and Pending Completed studies during hospitalization [Text1]: 08/25/23 13:08 Surgical [PTH] Routine Hernia sac, herniorrhaphy: Fibromembranous tissue with mesothelial lining consistent with hernia sac. Discharge Plan Discharge Anticipated Discharge Date/Time: 08/27/23 07:54 Patient Disposition: Home Health Service Discharge Diagnosis: incisional hernias Referrals: [facility] [Outside] - 1 Day ([facility] will call you to schedule home PT appointments ) Cooper Adam MD [Primary Care Provider] - 1 Week Ramses Rabago MD [Physician] - 2 Weeks Discharge Medications: New docusate sodium [Colace] 100 mg capsule 100 mg PO BID Qty: 30 0RF Continued omeprazole 40 mg capsule,delayed release(DR/EC) 40 mg PO BID 90 Days Qty: 180 2RF pyridoxine (vitamin B6) 50 mg tablet 50 mg PO DAILY 90 Days Qty: 90 1RF ondansetron 8 mg tablet,disintegrating 8 mg PO Q8H Qty: 90 2RF promethazine 25 mg tablet 25 mg PO Q4-6H PRN (Reason: for nausea/vomiting) Qty: 90 2RF Relistor 150 mg tablet 450 mg PO DAILY Qty: 90 3RF dicyclomine 10 mg capsule 10 mg PO Q6-8H PRN (Reason: for cramps) Qty: 120 3RF lisinopril 2.5 mg Tablet 2.5 mg PO DAILY atorvastatin 20 mg tablet 1 tab PO DAILY sumatriptan succinate 100 mg tablet 100 mg PO DAILY MRX1 PRN (Reason: Migraine Headache) Rx Instructions: max 200mg calcium carbonate-vitamin D3 600 mg(1,500mg) -400 unit tablet 1 tab PO BID levocetirizine 5 mg tablet 1 tab PO BEDTIME docusate sodium [Colace] 100 mg capsule 100 mg PO BID Qty: 60 0RF tizanidine 4 mg tablet 1 tab PO Q8H cromolyn 4 % drops 1 drp ophthalmic (eye) QID usnryprflb-qvzzesl-mjciawzi 50-325-40 mg capsule 1 cap PO Q6H PRN (Reason: Headache) Pulmicort Flexhaler 180 mcg/actuation aerosol powdr breath activated 1 puff PO BID Spiriva Respimat 2.5 mcg/actuation mist 2 puff inhalation DAILY aspirin 81 mg Tablet,Delayed Release (Dr/Ec) 81 mg PO DAILY oxycodone 5 mg tablet 7.5 mg PO TID PRN (Reason: pain) betamethasone dipropionate 0.05 % cream 1 appl topical DAILY Patient Comments: vaginal rash cyanocobalamin (vitamin B-12) 1,000 mcg/mL Kit 1,000 mcg IM QMONTH zolpidem 10 mg tablet 10 mg PO BEDTIME PRN (Reason: insomnia) bupropion HCl 300 mg tablet extended release 24 hr 300 mg PO DAILY lorazepam 0.5 mg tablet 0.5 mg PO BID PRN (Reason: Anxiety) sucralfate [Carafate] 100 mg/mL suspension 5 ml PO QID Rx Instructions: swish in mouth and swallow; use after food/drink ferrous gluconate 324 mg (38 mg iron) tablet 324 mg PO BID (DME) blood sugar diagnostic Strip See Rx Instructions Not Applicable TID Qty: 10 Rx Instructions: As directed (DME) lancets 28 gauge misc See Rx Instructions topical TID Qty: 100 Rx Instructions: As directed albuterol sulfate 90 mcg/actuation HFA aerosol inhaler 2 puff inhalation Q4H PRN (Reason: wheezing) Premarin 0.625 mg/gram cream 0.625 mg vaginal DAILY Dupixent Pen 300 mg/2 mL pen injector 300 mg subcut Q2W zafirlukast 20 mg tablet 20 mg PO BID fluticasone furoate-vilanterol [Breo Ellipta] 200-25 mcg/dose blister with device 1 ea inhalation DAILY Trulicity 0.75 mg/0.5 mL pen injector 0.75 mg subcut .QTHURSDAY linaclotide 72 mcg capsule 72 mcg PO DAILY Qty: 30 3RF No Action oxycodone 5 mg tablet 5 mg PO Q4H PRN (Reason: pain (scale score 7-10)) Qty: 25 0RF Rx Instructions: Partial Fill upon patient request. Discharge Orders: Discharge Order (Routine); Ordered 08/29/23 Ordered By: Ramses Rabago Diet: Diabetic diet Activity on Discharge: No heavy lifting Stand Alone Forms: Patient Portal Discharge page Print Language: Bhutanese Activity Restrictions/Additional Instructions: ok to continue with Oxycodone from home for pain control If the incision area is tender, you may apply an ice pack for short intervals (No more than 20 minutes on, followed by at least 20 minutes off). Do not apply heat. Do not use creams, lotions, or topical antibiotics. These can cause infection or allergic reaction. Ok to shower. You have lucille closing your incision and these will be removed approximately 10-14 days after surgery. NO HEAVY LIFTING (>10lbs) or strenuous activity. Wear ypur abdominal binder daily. Follow up in office. ([phone]) Call Your Doctor If: -Your temperature exceeds 101.5? F -You experience excessive pain or swelling -You have an unexpected reaction to medication -You have excessive bleeding -You experience continued vomiting/nausea -Your incision begins to separate -Your incision shows signs of infection such as increased redness, swelling, excessive pain, drainage (light blood or clear fluid is normal) or heat Care Plan Goals: Return to baseline health and resume normal activities following recovery period. Health Concerns: large incisional hernias Plan of Treatment: repair of incisional hernias with mesh abdominal binder no heavy lifting f/u in office with Dr. rabago in 2 weeks F/u with PCP Assessment: Doing well post op Discharge Date/Time: 08/29/23 12:23
== END 2023-08-29 12:23 | disposition home health service (06) | DRG 337 ==
LOC: HO.SSS 11:51 → HO.S3 11:51
PROVIDERS: Physician Assistant Surgical; Admitting Provider Surgery; PCP Family Medicine; Visit Provider Surgery
PROC: 0WUF0JZ Supplement Abdominal Wall with Synthetic Substitute, Open Approach (ICD-10-PCS; principal; 2023-08-25 10:30)
DX: K43.2 Incisional hernia without obstruction or gangrene (principal); K66.0 Peritoneal adhesions (postprocedural) (postinfection); F39 Unspecified mood [affective] disorder; I10 Essential (primary) hypertension; E11.9 Type 2 diabetes mellitus without complications; E66.01 Morbid (severe) obesity due to excess calories; Z68.31 Body mass index [BMI] 31.0-31.9, adult; Z79.82 Long term (current) use of aspirin; Z79.899 Other long term (current) drug therapy
CPT/HCPCS: 36415; 80048; 82947; 88302; 93005; 94640; 97161; C1758; C1781; C1889; J0131; J0690; J1100; J1170; J1644; J1885; J2060; J2250; J2310; J2405; J2704; J2795; J3010; J7120

== ENCOUNTER 2023-09-07 10:21 | Outpatient (AMB) | payer MEDICARE, MEDICAID, SELFPAY ==
--- NOTE | 2023-09-07 10:34 | MHC.OFFVIS ---
Vital Signs 09/07/23 10:39 Weight 173 lb BP 132/83 Blood Pressure Location Rt brachial Position Sitting Pulse 103 H Intake Visit Reasons: S/P multiple incisional hernias w/mesh Intake Note: This patient presents for a post-op assessment status post multiple incisional hernia repairs with mesh. Patient c/o; reports no complaints. Surgery date: 08/25/2023 Client Executive Required: No Accompanied by: Daughter Allergies acetaminophen [From Tylenol] Allergy (Severe, Verified 09/07/23 10:40) Gastrointestinal Upset esomeprazole [Nexium] Allergy (Severe, Verified 09/07/23 10:40) rash famotidine [From PEPCID] Allergy (Severe, Verified 09/07/23 10:40) Gastrointestinal Upset, rash gabapentin [GABAPENTIN] Allergy (Severe, Verified 09/07/23 10:40) ABD PAIN lansoprazole [Prevacid] Allergy (Severe, Verified 09/07/23 10:40) Gastrointestinal Upset, rash Penicillins [PENICILLINS] Allergy (Severe, Verified 09/07/23 10:40) RASH, stomach pains tramadol Allergy (Severe, Verified 09/07/23 10:40) Gastrointestinal Upset, hives morphine Adverse Reaction (Severe, Verified 09/07/23 10:40) migraine headache adhesive tape Adverse Reaction (Intermediate, Verified 09/07/23 10:40) Redness of Skin HPI HPI S/P multiple incisional hernias w/mesh: Details: She underwent repair of multiple incisional hernias with Phasix mesh and Ventralex mesh last 08/25/2023. She tolerated procedure well. She says she is doing well at home denies new complaints. [facility] Medical History Seasonal allergies Use of cane as ambulatory aid CTS (carpal tunnel syndrome) Abdominal hernia Morbid obesity due to excess calories Incisional hernia UTI (urinary tract infection) Chronic back pain Diverticulitis Diverticulitis History of diverticulitis SIRS (systemic inflammatory response syndrome) Abdominal pain Asthma Depression Migraines Diabetes 1.5, managed as type 2 HTN (hypertension) Surgical History Hx of surgical procedure (~08/25/23) Hx of hand surgery Hx of colonoscopy History of esophagogastroduodenoscopy (EGD) History of partial colectomy History of hysterectomy History of cholecystectomy Family History Father Cancer Social History Household Members: Significant Other Housing: Apartment Are you a primary emergency care tech to a significant other at home: No Do you presently have visiting nurse or other home services: No Alcohol intake: never Comment: Pt. sleeping Patient Tobacco Use Status: Never used Tobacco e-Cigarette/Vaping Use: Never Used Second Hand Smoke Exposure: Yes Advance Directives Date on File: 10/02/20 service: No Current occupational status: disabled Review of Systems Const Denies chills and Denies fever(s) Card Denies chest pain at rest GI Denies nausea and Denies vomiting Physical Exam Vital Signs: Last Vital Signs Pulse 103 H 09/07/23 10:39 BP 132/83 09/07/23 10:39 Const Other: Morbidly obese General: comfortable and no acute distress Resp Effort & Inspection: normal respiratory effort GI Other: Midline incision and transverse incision on the right side both healing well, lucille intact, not infected, hernia repair intact on both sites Palpation (GI): Soft to palpation, not firm and no guarding Assessment & Plan Assessment & Plan (1) Incisional hernia: Code(s): K43.2 - Incisional hernia without obstruction or gangrene Category: Medical Plan: Status post repair of multiple incisional hernias with mesh. I removed all her skin lucille. Her incisions are healing well. The repair sites are intact. I again emphasized to her that she has not allowed to do any lifting more than 15 lb until I see her back in the office. She will see me in the office in about a month for another postop visit. Overall she seems to be doing very well. Coding Level of Care Code Global (19255) Diagnoses Incisional hernia K43.2
[2023-09-07 10:39] VITALS: BP 132/83; PULSE 103
== END 2023-09-07 11:03 | disposition home or self-care (01) ==
PROVIDERS: PCP Family Medicine; Visit Provider Surgery
DX: K43.2 Incisional hernia without obstruction or gangrene (principal); Z48.02 Encounter for removal of sutures
CPT/HCPCS: 99213

== ENCOUNTER → 2023-09-07 10:21 | Outpatient (BNVA) | payer MEDICARE, MEDICAID, SELFPAY | PROVIDERS: PCP Family Medicine; Visit Provider Surgery | DX: K43.2 Incisional hernia without obstruction or gangrene (principal) | CPT/HCPCS: 99212 ==

== ENCOUNTER 2023-10-14 12:54 | Outpatient (AMB) | payer MEDICARE, MEDICAID, SELFPAY ==
--- NOTE | 2023-10-14 13:00 | MHC.OFFVIS ---
Vital Signs 10/14/23 13:06 Weight 173 lb BP 129/66 Blood Pressure Location Rt brachial Position Sitting Pulse 101 H Intake Visit Reasons: S/P multiple incisional hernias w/mesh Intake Note: This patient presents for a one month follow-up status post multiple incisional hernias repair with mesh. Patient c/o; reports no complaints at this time. Childhood Teacher Required: No Accompanied by: Other Relationship Allergies acetaminophen [From Tylenol] Allergy (Severe, Verified 10/14/23 13:07) Gastrointestinal Upset esomeprazole [Nexium] Allergy (Severe, Verified 10/14/23 13:07) rash famotidine [From PEPCID] Allergy (Severe, Verified 10/14/23 13:07) Gastrointestinal Upset, rash gabapentin [GABAPENTIN] Allergy (Severe, Verified 10/14/23 13:07) ABD PAIN lansoprazole [Prevacid] Allergy (Severe, Verified 10/14/23 13:07) Gastrointestinal Upset, rash Penicillins [PENICILLINS] Allergy (Severe, Verified 10/14/23 13:07) RASH, stomach pains tramadol Allergy (Severe, Verified 10/14/23 13:07) Gastrointestinal Upset, hives morphine Adverse Reaction (Severe, Verified 10/14/23 13:07) migraine headache adhesive tape Adverse Reaction (Intermediate, Verified 10/14/23 13:07) Redness of Skin HPI HPI S/P multiple incisional hernias w/mesh: Details: She is here for postop visit after repair of large and multiple hernias with mesh last July,. She says she continues to do well. She denies any GI complaints. She denies significant pain on the old hernia sites. [facility] Medical History Seasonal allergies Use of cane as ambulatory aid CTS (carpal tunnel syndrome) Abdominal hernia Morbid obesity due to excess calories Incisional hernia UTI (urinary tract infection) Chronic back pain Diverticulitis Diverticulitis History of diverticulitis SIRS (systemic inflammatory response syndrome) Abdominal pain Asthma Depression Migraines Diabetes 1.5, managed as type 2 HTN (hypertension) Surgical History Hx of surgical procedure (~08/25/23) Hx of hand surgery Hx of colonoscopy History of esophagogastroduodenoscopy (EGD) History of partial colectomy History of hysterectomy History of cholecystectomy Family History Father Cancer Social History Household Members: Significant Other Housing: Apartment Are you a primary human services care specialist to a significant other at home: No Do you presently have visiting nurse or other home services: No Alcohol intake: never Comment: Pt. sleeping Patient Tobacco Use Status: Never used Tobacco e-Cigarette/Vaping Use: Never Used Second Hand Smoke Exposure: Yes Advance Directives Date on File: 10/02/20 service: No Current occupational status: disabled Review of Systems Const Denies chills and Denies fever(s) Card Denies chest pain GI Denies abdominal pain Denies difficulty voiding Physical Exam Vital Signs: Last Vital Signs Pulse 101 H 10/14/23 13:06 BP 129/66 10/14/23 13:06 Const Other: Looks well General: comfortable and no acute distress GI Other: Abdomen soft, with large pannus, all incisions are well healed, no palpable new hernias, repair site intact Assessment & Plan Assessment & Plan (1) Abdominal hernia: Code(s): K46.9 - Unspecified abdominal hernia without obstruction or gangrene Category: Medical Plan: Status post repair with mesh. She is doing very well. All incisions are well healed and the repair sites are intact. She can return to regular level of activities including lifting. She can follow up on a p.r.n. basis. Coding Level of Care Code Global (01643) Diagnoses Abdominal hernia K46.9
[2023-10-14 13:06] VITALS: BP 129/66; PULSE 101
== END 2023-10-14 13:36 | disposition home or self-care (01) ==
PROVIDERS: PCP Family Medicine; Visit Provider Surgery
DX: K46.9 Unspecified abdominal hernia without obstruction or gangrene (principal)
CPT/HCPCS: 99212

== ENCOUNTER → 2023-10-14 12:54 | Outpatient (BNVA) | payer MEDICARE, MEDICAID, SELFPAY | PROVIDERS: PCP Family Medicine; Visit Provider Surgery | DX: K46.9 Unspecified abdominal hernia without obstruction or gangrene (principal) | CPT/HCPCS: 99212 ==

== ENCOUNTER → 2023-11-06 09:59 | Outpatient (BNVA) | payer MEDICARE, MEDICAID, SELFPAY | PROVIDERS: PCP Family Medicine; Visit Provider Internal Medicine Gastroenterology | DX: Z11.59 Encounter for screening for other viral diseases (principal) | CPT/HCPCS: 99212 ==

== ENCOUNTER 2023-12-24 11:21 | Outpatient (REF) | payer MEDICARE, MEDICAID, SELFPAY ==
--- NOTE | ~2023-12-24 | US_ITS ---
EXAMINATION: US RETROPERITONEAL COMPLETE (RENAL) CLINICAL INFORMATION: Renal calculi. COMPARISON: CT abdomen and pelvis 08/08/2023 TECHNIQUE: Real-time imaging of the kidneys and bladder. FINDINGS: RIGHT KIDNEY: 11.4 x 4.7 x 5.3 cm (SAG x AP x TRV). The kidney is normal in size, contour, and echogenicity. Renal cortical thickness is normal. No calculi . No hydronephrosis. A benign upper pole 1.0 cm Bosniak class I renal cyst is noted which requires no additional imaging or follow up. No solid renal masses are seen. LEFT KIDNEY: 10.5 x 4.8 x 5.1 cm (SAG x AP x TRV). The kidney is normal in size, contour, and echogenicity. Renal cortical thickness is normal. No calculi . No hydronephrosis. A benign lower pole 0.6 cm Bosniak class I renal cyst is noted which requires no additional imaging or follow up. No solid renal masses are seen. US/US renal BI IMPRESSION: Negative exam. No renal calculi are seen nor were any seen on 2023 CT scan. Electronically signed by: Yonis Simmons MD 12/28/2023 09:55 PM EDT
[2023-12-25 09:50] LABS: HBS Num1 0.42 mIU/mL (0-7.99); HBsAGNum1 0.22 S/CO (0.00-0.99); Hepatitis A Antibody IgM 0.14 Index (0-0.79); Hepatitis B Core Antibody Nonreactive (Nonreactive); Hepatitis B Surface Antigen Negative (Negative); ~HepC Num1 0.16 S/CO (0.00-0.79); ~Hepatitis A Antibody IgM Nonreactive (Nonreactive); ~Hepatitis B Surface Antibody NONREACTIVE (Nonreactive); ~Hepatitis C Antibody Nonreactive (Nonreactive)
== END 2023-12-24 11:22 | disposition home or self-care (01) ==
LOC: HO.HMGCX 11:21
PROVIDERS: PCP Family Medicine; Referring Provider Internal Medicine Gastroenterology; Visit Provider Nurse Practitioner Family
DX: N20.0 Calculus of kidney (principal); N28.1 Cyst of kidney, acquired; Z11.59 Encounter for screening for other viral diseases; Z72.89 Other problems related to lifestyle
CPT/HCPCS: 36415; 76775; 86704; 86706; 86709; 86803; 87340

== ENCOUNTER 2024-01-27 12:08 | Outpatient (AMB) | payer MEDICARE, MEDICAID, SELFPAY ==
--- NOTE | 2024-01-27 12:08 | A.OFFVIS_ITS ---
Intake Visit Reasons: 1yr follow up/US(set) Intake Note: Patient presents for follow up nephrolithiasis/ultrasound Imaging Completed: 12/24/23 Urology Medications: Vitamin B6 Blood Thinner: aspirin Salvage Diver Required: No Allergies acetaminophen [From Tylenol] Allergy (Severe, Verified 01/27/24 12:13) Gastrointestinal Upset esomeprazole [Nexium] Allergy (Severe, Verified 01/27/24 12:13) rash famotidine [From PEPCID] Allergy (Severe, Verified 01/27/24 12:13) Gastrointestinal Upset, rash gabapentin [GABAPENTIN] Allergy (Severe, Verified 01/27/24 12:13) ABD PAIN lansoprazole [Prevacid] Allergy (Severe, Verified 01/27/24 12:13) Gastrointestinal Upset, rash Penicillins [PENICILLINS] Allergy (Severe, Verified 01/27/24 12:13) RASH, stomach pains tramadol Allergy (Severe, Verified 01/27/24 12:13) Gastrointestinal Upset, hives morphine Adverse Reaction (Severe, Verified 01/27/24 12:13) migraine headache adhesive tape Adverse Reaction (Intermediate, Verified 01/27/24 12:13) Redness of Skin Medication List - Last Reconciled 01/27/24 by ENID Ashby-BC [abdominal binder As directed] albuterol sulfate 90 mcg/actuation 2 puffs inhalation Q4H PRN aspirin 81 mg PO DAILY atorvastatin 1 tab PO DAILY betamethasone dipropionate 0.05% 1 appl topical DAILY blood sugar diagnostic As directed budesonide 180 mcg/actuation (Pulmicort Flexhaler) 1 puff PO BID bupropion HCl XL 300 mg PO DAILY mdxelzrpro-eqngcum-qzdhwkyj 50-325-40 mg 1 cap PO Q6H PRN calcium carbonate-vitamin D3 600 mg-10 mcg (400 unit) 1 tab PO BID conjugated estrogens (Premarin) 0.625 mg vaginal DAILY cromolyn 4% 1 drp ophthalmic (eye) QID cyanocobalamin (vitamin B-12) 1,000 mcg IM QMONTH dicyclomine 10 mg PO Q6-8H PRN docusate sodium (Colace) 100 mg PO BID docusate sodium (Colace) 100 mg PO BID dulaglutide (Trulicity) 0.75 mg subcut .QTHURSDAY dupilumab (Dupixent) 300 mg subcut Q2W ferrous gluconate 324 mg PO BID fluticasone furoate-vilanterol 200-25 mcg/dose (Breo Ellipta) 1 ea inhalation DAILY lancets As directed levocetirizine 1 tab PO BEDTIME linaclotide (Linzess) 72 mcg PO DAILY lisinopril 2.5 mg PO DAILY lorazepam 0.5 mg PO BID PRN methylnaltrexone (Relistor) 450 mg (3 x 150 mg) PO DAILY omeprazole 40 mg PO BID ondansetron 8 mg PO Q8H oxycodone 7.5 mg PO TID PRN oxycodone-acetaminophen 5-325 mg (Percocet) 1 tab PO TID PRN promethazine 25 mg PO Q4-6H PRN pyridoxine (vitamin B6) 50 mg PO DAILY 90 days sucralfate (Carafate) 5 mL PO QID sumatriptan succinate 100 mg PO DAILY MRX1 PRN tiotropium bromide 2.5 mcg/actuation (Spiriva Respimat) 2 puffs inhalation DAILY tizanidine 1 tab PO Q8H zafirlukast 20 mg PO BID zolpidem 10 mg PO BEDTIME PRN HPI Comments Details: Pati is a pleasant 63-year-old female patient of Dr. Adam. She has a past medical history of incisional hernia, UTI, chronic back pain, diverticulitis, systemic inflammatory response syndrome, asthma, depression, migraines, diabetes, and hypertension. She is being followed up on today via telehealth for her history of nephrolithiasis and renal cysts. Of note, patient was seen approximately 1 month ago at which time a renal ultrasound was ordered for further assessment evaluation as patient with previous imaging noting nephrolithiasis. These results reviewed with the patient today. Bilateral kidneys with no calculi, lesions, and or hydronephrosis. Bilateral benign renal cysts noted that require no imaging follow-up per radiology report. In discussion with the patient today she reports noting urinary dribbling she otherwise denies urinary urgency, urinary frequency, incontinence, nocturia, hematuria, dysuria, foul smelling urine, changes to urinary stream, flank pain, fever, and or chills. She is happy with her current voiding parameters. We discussed at length potential causes of urinary dribbling, renal cysts, and nephrolithiasis. We discussed further intervention regarding these urological issues. Discussed pelvic floor exercises. She otherwise denies any bothersome urinary issues or concerns at this time. [facility] Medical History Seasonal allergies Use of cane as ambulatory aid CTS (carpal tunnel syndrome) Abdominal hernia Morbid obesity due to excess calories Incisional hernia UTI (urinary tract infection) Chronic back pain Diverticulitis Diverticulitis History of diverticulitis SIRS (systemic inflammatory response syndrome) Abdominal pain Asthma Depression Migraines Diabetes 1.5, managed as type 2 HTN (hypertension) Surgical History Hx of hernia repair Hx of surgical procedure (~08/25/23) Hx of hand surgery Hx of colonoscopy History of esophagogastroduodenoscopy (EGD) History of partial colectomy History of hysterectomy History of cholecystectomy Family History Father Cancer Social History Household Members: Significant Other Housing: Apartment Are you a primary nurse healthcare manager to a significant other at home: No Do you presently have visiting nurse or other home services: No Alcohol intake: never Comment: Pt. sleeping Patient Tobacco Use Status: Never used Tobacco e-Cigarette/Vaping Use: Never Used Second Hand Smoke Exposure: Yes Advance Directives Date on File: 10/02/20 service: No Current occupational status: disabled Review of Systems Const Reports as per HPI Eyes Reports no additional complaints ENT Reports no additional complaints Card Reports as per HPI Resp Reports as per HPI GI Reports as per HPI Reports as per HPI Musc Reports as per HPI Neuro Reports as per HPI Psych Reports as per HPI Endo Reports as per HPI Bipin/Lymph Reports no additional complaints Aller/Immun Reports no additional complaints Physical Exam Const General: cooperative Resp Effort & Inspection: able to speak in complete sentences Psych Attitude: cooperative Thought process: Normal thought process present Thought content: Normal thought content present Insight: Fair insight present (Psych) Judgement: Fair judgement present (Psych) Telehealth Telehealth Telehealth Platform: [employer] Messaging Location of provider rendering services: practice address Location of patient: address on file Patient Identification confirmed using: Name, : Yes Telehealth method: voice only Patient verbally consented to treatment: Yes Patient verbally consented to billing insurance company: Yes Patient informed of any privacy concerns related to visit: Yes Minutes spent on Phone/Video with Pt.: 15 Results Reviewed Results Reviewed: Date of Service: 12/24/23 EXAMINATION: US RETROPERITONEAL COMPLETE (RENAL) FINDINGS: RIGHT KIDNEY: 11.4 x 4.7 x 5.3 cm (SAG x AP x TRV). The kidney is normal in size, contour, and echogenicity. Renal cortical thickness is normal. No calculi . No hydronephrosis. A benign upper pole 1.0 cm Bosniak class I renal cyst is noted which requires no additional imaging or follow up. No solid renal masses are seen. LEFT KIDNEY: 10.5 x 4.8 x 5.1 cm (SAG x AP x TRV). The kidney is normal in size, contour, and echogenicity. Renal cortical thickness is normal. No calculi . No hydronephrosis. A benign lower pole 0.6 cm Bosniak class I renal cyst is noted which requires no additional imaging or follow up. No solid renal masses are seen. IMPRESSION: Negative exam. No renal calculi are seen nor were any seen on 2023 CT scan. Assessment & Plan Assessment & Plan (1) Renal cyst: Code(s): N28.1 - Cyst of kidney, acquired Category: Medical (2) Calculus of kidney: Code(s): N20.0 - Calculus of kidney Category: Medical (3) Urinary dribbling: Code(s): N39.43 - Post-void dribbling Category: Medical Plan Recent renal imaging results reviewed with the patient today; as noted above. Discussed importance of pelvic floor exercises for urinary dribbling. Discussed, educated, and stressed the importance of adequate hydration relation to nephrolithiasis as well as overall health and well-being. Continue adding 1 oz of lemon juice to water daily. Will obtain renal ultrasound in 6 months Follow-up in 6 months with imaging to be completed prior; or sooner with any issues, concerns, and or questions. Orders: Orders US renal BI 6 Months N20.0 - Calculus of kidney Patient Instructions: The patient had an opportunity to ask questions regarding the treatment plan. All questions were answered. Physical exam, labs, and imaging were discussed and reviewed in detail. As well as risks, benefits, and discussion of treatment choices. No major barriers to understanding were identified. The patient expressed understanding and agreement with the above treatment plan. The patient was made aware they should contact our office by phone for worsening of their current condition, the appearance of new symptoms, or with any questions or concerns. Compliance is encouraged with any medications and follow up testing that is ordered. It is a privilege to be allowed the opportunity to participate in? your urological care.? Again, if you have any questions or concerns If you have any questions or concerns please do not hesitate to contact me. The office is [phone]. This note is constructed using voice recognition software. While every effort has been made to ensure accuracy tire duster errors may have been included. Yours sincerely, YVONNE Ashby Coding Level of Care Code Tele Est Pt Level 3 (89794) Diagnoses Renal cyst N28.1 Calculus of kidney N20.0 Urinary dribbling N39.43 Time Spent (min) 15
== END 2024-01-27 13:31 | disposition home or self-care (01) ==
LOC: HO.HUSH 12:08
PROVIDERS: PCP Family Medicine; Visit Provider Nurse Practitioner Family
DX: N28.1 Cyst of kidney, acquired (principal); N20.0 Calculus of kidney; N39.43 Post-void dribbling
CPT/HCPCS: 99442

== ENCOUNTER → 2024-01-27 12:08 | Outpatient (BNVA) | payer MEDICARE, MEDICAID, SELFPAY | PROVIDERS: PCP Family Medicine; Visit Provider Nurse Practitioner Family ==

== ENCOUNTER 2024-05-09 13:05 | Outpatient (REF) | payer MEDICARE, MEDICAID, SELFPAY ==
[2024-05-09 14:14] LABS: MANUAL DIFF FLAG NO
[2024-05-09 14:43] LABS: Basophils Absolute Auto 0.1 X10*3/uL (0.0-0.2); Basophils Percent Auto 0.6 % (0-2); Eosinophils Absolute Auto 0.3 X10*3/uL (0.0-0.4); Eosinophils Percent Auto 1.6 % (0-4); Hematocrit 41.1 % (37.0-47.0); Hemoglobin 13.8 g/dl (12.0-16.0); Imm Gran Abs Auto 0.07 X10*3/uL (0.00-0.03); Imm Gran Pct Auto 0.5 % (0.0-0.4); Lymphocytes Absolute Auto 2.9 X10*3/uL (1.2-4.9); Lymphocytes Percent Auto 18.9 % (20-40); Mean Corpuscular HGB Conc 33.6 g/dl (31.0-35.0); Mean Corpuscular Hemoglobin 30.7 pg (27.0-33.0); Mean Corpuscular Volume 91.3 fL (80.0-98.0); Mean Platelet Volume 10.6 fL (9.4-12.3); Monocytes Absolute Auto 0.8 X10*3/uL (0.1-1.2); Monocytes Percent Auto 5.3 % (2-11); Neutrophils Absolute Auto 11.2 x10*3/uL (2.0-8.3); Neutrophils Percent Auto 73.1 % (45-73); Platelet Count 277 X10*3/uL (160-400); Red Cell Distribution Width 12.5 % (11.0-16.0); White Blood Count 15.3 X10*3/uL (4.8-10.8)
[2024-05-09 15:12] LABS: Alanine Aminotransferase 31 U/L (0-31); Albumin Level 4.2 g/dL (3.5-5.0); Alkaline Phosphatase 95 U/L (39-117); Anion Gap 10 (12-20); Aspartate Amino Transferase 31 U/L (5-31); Bilirubin Total 0.6 mg/dL (0.0-1.0); Blood Urea Nitrogen 12 mg/dL (9-16); Calcium 9.3 mg/dL (8.4-10.2); Carbon Dioxide 26 mmol/L (22-29); Chloride 108 mmol/L (96-108); Estimated Glomerular Filt Rate > 60; Glucose Random 112 mg/dL (60-115); Lipase 11 U/L (8-78); Potassium 3.6 mmol/L (3.3-5.1); Sodium 140 mmol/L (135-145); Total Protein 7.5 g/dL (6.5-8.0)
== END 2024-05-09 13:06 | disposition home or self-care (01) ==
LOC: HO.LAB 13:05
PROVIDERS: PCP Family Medicine; Visit Provider Internal Medicine Gastroenterology
DX: Z13.89 Encounter for screening for other disorder (principal)
CPT/HCPCS: 36415; 80053; 83690; 85025; 99212

== ENCOUNTER 2024-05-09 13:05 | Outpatient (AMB) | payer MEDICARE, MEDICAID, SELFPAY ==
--- NOTE | 2024-05-09 13:08 | A.OFFVIS_ITS ---
Vital Signs 05/09/24 13:21 Height 5 ft 3 in Weight 171 lb 15.369 oz BMI 30.5 BP 113/61 Blood Pressure Location Lt brachial Position Sitting Pulse 93 Intake Visit Reasons: 6 month follow up Intake Note: Pati presents in the office as a 6month follow up. CC: Pains in the epigastric region that goes tot he right side. She has been using the bathroom fine but is having lots of acid reflux. Allergies acetaminophen [From Tylenol] Allergy (Severe, Verified 05/09/24 13:21) Gastrointestinal Upset esomeprazole [Nexium] Allergy (Severe, Verified 05/09/24 13:21) rash famotidine [From PEPCID] Allergy (Severe, Verified 05/09/24 13:21) Gastrointestinal Upset, rash gabapentin [GABAPENTIN] Allergy (Severe, Verified 05/09/24 13:21) ABD PAIN lansoprazole [Prevacid] Allergy (Severe, Verified 05/09/24 13:21) Gastrointestinal Upset, rash Penicillins [PENICILLINS] Allergy (Severe, Verified 05/09/24 13:21) RASH, stomach pains tramadol Allergy (Severe, Verified 05/09/24 13:21) Gastrointestinal Upset, hives morphine Adverse Reaction (Severe, Verified 05/09/24 13:21) migraine headache adhesive tape Adverse Reaction (Intermediate, Verified 05/09/24 13:) Redness of Skin HPI HPI 6 month follow up: Details: 63 year old female with PMH of DM, HtN, asthma, hx of LAR with ileostomy and reversal who I am seeing for f/u after I initially saw her as an inpatient for RLQ pain. RECAP: She had RLQ sharp, burning pain for 2 weeks prior to admission. She felt this pain was similar to her prior episodes of diverticulitis, at least 6 since her LAR surgery 2010. It was severe and worse with movement. she has persistent nausea for months and was waiting for an EGD at [facility], Last colonoscopy 3 yrs ago at [facility], results not known. She had CT scan 11/07/20 with sigmoid diverticulitis and several internal hernias, incl ventral and umbilical areas. Repeat CT 11/18/20--- no areas of stranding seen but large ventral hernia noted, lots of stool content in bowel I did an EGD/colonoscopy with gastritis, noted, surgical changes to colon, diverticulosis, lots of looping of colon ba swallow 12/06/2020--normal, no hiatal hernia, no GOO\ she has seen Dr Rabago and discussed hernia repair INTERIM: she had few days of RUQ pain, crampy after eating burger comes in waves she has nausea goes around into the back like a band she has bloating she is still taking linaclotide, relistor still on oxycodone EXAM: GENERAL: The patient is well developed and nontoxic. VITAL SIGNS:see workflow HEENT: Nonicteric sclerae, PERRLA, EOMI. Oropharynx clear. Moist mucous membranes. Conjunctivae appear well perfused. No thyroid mass. CHEST: Chest wall is nontender. HEART: Regular rate and rhythm without murmurs. LUNGS: Clear to auscultation bilaterally. ABDOMEN: Soft, positive bowel sounds, RUQ tender, no organomegaly.no flank tenderness--large right ventral hernia SKIN: No rash, no excessive bruising, petechiae, or purpura. NEUROLOGIC: Cranial nerves II-XII intact without motor/sensory deficit. A/P: 1/ Opiate related side effect and GI dysmotility, seems to be doing well with current treatment regimen- 2/ RUQ pain with nausea, hx of cholecystectomy, ?SOD, or retained stones PLAN: 1/ cont with relistor, , and compazine prn, low dose linaclotide 2/ labs, US liver, if sx worse come to ED 3/ change bentyl to levsin trail [facility] Medical History Seasonal allergies Use of cane as ambulatory aid CTS (carpal tunnel syndrome) Abdominal hernia Morbid obesity due to excess calories Incisional hernia UTI (urinary tract infection) Chronic back pain Diverticulitis Diverticulitis History of diverticulitis SIRS (systemic inflammatory response syndrome) Abdominal pain Asthma Depression Migraines Diabetes 1.5, managed as type 2 HTN (hypertension) Surgical History Hx of hernia repair Hx of surgical procedure (~08/25/23) Hx of hand surgery Hx of colonoscopy History of esophagogastroduodenoscopy (EGD) History of partial colectomy History of hysterectomy History of cholecystectomy Family History Father Cancer Social History Household Members: Significant Other Housing: Apartment Are you a primary physician assistant primary care to a significant other at home: No Do you presently have visiting nurse or other home services: No Alcohol intake: never Comment: Pt. sleeping Patient Tobacco Use Status: Never used Tobacco e-Cigarette/Vaping Use: Never Used Second Hand Smoke Exposure: Yes Advance Directives Date on File: 10/02/20 service: No Current occupational status: disabled Physical Exam Vital Signs: Last Vital Signs Pulse 93 05/09/24 13:21 BP 113/61 05/09/24 13:21 BMI result Body Mass Index 30.5 Assessment & Plan Assessment & Plan (1) RUQ abdominal pain: Code(s): R10.11 - Right upper quadrant pain Category: Medical Plan: see above Orders: Orders Complete Blood Count Auto Diff Today R10.11 - Right upper quadrant pain Lipase Today R10.11 - Right upper quadrant pain Comprehensive Met. Panel Today K75.81 - Nonalcoholic steatohepatitis (ACE), R10.11 - Right upper quadrant pain US abdomen limited Today R10.11 - Right upper quadrant pain Medications: New hyoscyamine sulfate 0.125 mg PO BID-QID PRN 90 tabs 0RF dyspepsia Coding Level of Care Code Est Pt Level 4 (00631) Diagnoses RUQ abdominal pain R10.11
[2024-05-09 13:21] VITALS: BP 113/61; PULSE 93; BMI 30.5
== END 2024-05-09 13:52 | disposition home or self-care (01) ==
PROVIDERS: PCP Family Medicine; Visit Provider Internal Medicine Gastroenterology
DX: R10.11 Right upper quadrant pain (principal)
CPT/HCPCS: 99214

== ENCOUNTER 2024-05-09 14:29 | Outpatient (REF) | payer MEDICARE, MEDICAID, SELFPAY ==
--- NOTE | ~2024-05-09 | US_ITS ---
EXAMINATION: US ABDOMEN LIMITED CLINICAL INFORMATION: Right upper quadrant pain. COMPARISON: CT abdomen and pelvis 08/08/2023 TECHNIQUE: Real-time imaging of the right upper quadrant abdominal viscera. FINDINGS: PANCREAS: Visualized portions are unremarkable. LIVER: The liver is normal in size. The liver contour is normal. Parenchymal echogenicity is mildly increased. No focal hepatic lesion. There is no intrahepatic biliary duct dilatation seen. GALLBLADDER: The gallbladder has been surgically removed COMMON BILE DUCT: Normal in caliber measuring 0.4 - 0.6 cm in diameter. RIGHT KIDNEY: No hydronephrosis. No renal calculi or focal parenchymal lesions. The kidney measures 11.3 cm in maximum dimension. FREE FLUID: None. US/US abdomen limited IMPRESSION: Mild diffuse increased echogenicity without focal lesion. Cholecystectomy. Visualized pancreas, CBD and right kidney is unremarkable. Electronically signed by: Pedro Pablo Robins MD 05/09/2024 03:17 PM [facility] [place]
== END 2024-05-09 14:30 | disposition home or self-care (01) ==
LOC: HO.US 14:29
PROVIDERS: Visit Provider Internal Medicine Gastroenterology
DX: R10.11 Right upper quadrant pain (principal); K75.81 Nonalcoholic steatohepatitis (NASH)
CPT/HCPCS: 36415; 76705; 80053; 83690; 85025; 99212

== ENCOUNTER → 2024-05-09 14:39 | Outpatient (BNV) | payer MEDICARE, MEDICAID, SELFPAY | PROVIDERS: Visit Provider Radiology Diagnostic Radiology | DX: R10.11 Right upper quadrant pain (principal) | CPT/HCPCS: 76705 ==

== ENCOUNTER 2024-05-12 12:58 | Outpatient (REF) | payer MEDICARE, MEDICAID, SELFPAY ==
[2024-05-12 14:34] LABS: Appearance Urine Hazy; Color Urine Yellow; Glucose Urine UA Negative (Negative); Leukocyte Esterase Urine Negative (Negative); Nitrite Urine Negative (Negative); PH 5.5 (5.0-9.0); Specific Gravity - Urine >= 1.030 (1.005-1.025); Urine Blood Negative (Negative); Urine Ketones Trace mg/dL (Negative); Urine Protein Trace mg/dL (Neg-Trace)
== END 2024-05-12 12:59 | disposition home or self-care (01) ==
LOC: HO.LAB 12:58
PROVIDERS: Visit Provider Internal Medicine Gastroenterology
DX: R30.0 Dysuria (principal)
CPT/HCPCS: 81003

== ENCOUNTER 2024-06-27 12:25 | Outpatient (AMB) | payer MEDICARE, MEDICAID, SELFPAY ==
--- NOTE | 2024-06-27 12:29 | MHC.OFFVIS ---
Vital Signs 06/27/24 12:31 Height 5 ft 3 in Weight 169 lb 12.095 oz BMI 30.1 BP 142/64 H Blood Pressure Location Lt brachial Position Sitting Pulse 78 Intake Visit Reasons: f/u STAT Ultrasound Intake Note: Pati presents in the office as a follow up ultrasound. CC: Here for results to her ultrasound - states she is not having any concerns. Rn Access Required: No Allergies acetaminophen [From Tylenol] Allergy (Severe, Verified 06/27/24 12:32) Gastrointestinal Upset esomeprazole [Nexium] Allergy (Severe, Verified 06/27/24 12:32) rash famotidine [From PEPCID] Allergy (Severe, Verified 06/27/24 12:32) Gastrointestinal Upset, rash gabapentin [GABAPENTIN] Allergy (Severe, Verified 06/27/24 12:32) ABD PAIN lansoprazole [Prevacid] Allergy (Severe, Verified 06/27/24 12:32) Gastrointestinal Upset, rash Penicillins [PENICILLINS] Allergy (Severe, Verified 06/27/24 12:32) RASH, stomach pains tramadol Allergy (Severe, Verified 06/27/24 12:32) Gastrointestinal Upset, hives morphine Adverse Reaction (Severe, Verified 06/27/24 12:32) migraine headache adhesive tape Adverse Reaction (Intermediate, Verified 06/27/24 12:32) Redness of Skin HPI HPI f/u STAT Ultrasound: Details: 63 year old female with PMH of DM, HtN, asthma, hx of LAR with ileostomy and reversal who I am seeing for f/u after I initially saw her as an inpatient for RLQ pain. RECAP: She had RLQ sharp, burning pain for 2 weeks prior to admission. She felt this pain was similar to her prior episodes of diverticulitis, at least 6 since her LAR surgery 2010. It was severe and worse with movement. she has persistent nausea for months and was waiting for an EGD at [facility], Last colonoscopy 3 yrs ago at [facility], results not known. She had CT scan 11/07/20 with sigmoid diverticulitis and several internal hernias, incl ventral and umbilical areas. Repeat CT 11/18/20--- no areas of stranding seen but large ventral hernia noted, lots of stool content in bowel I did an EGD/colonoscopy with gastritis, noted, surgical changes to colon, diverticulosis, lots of looping of colon ba swallow 12/06/2020--normal, no hiatal hernia, no GOO\ she has seen Dr Rabago and discussed hernia repair I did us due to crampy RUQ pains, CBD was nml, fatty liver noted --LFt nml INTERIM: she had few days of RUQ pain, crampy after eating burger comes in waves she has nausea goes around into the back like a band she has bloating she is still taking linaclotide, relistor still on oxycodone EXAM: GENERAL: The patient is well developed and nontoxic. VITAL SIGNS:see workflow HEENT: Nonicteric sclerae, PERRLA, EOMI. Oropharynx clear. Moist mucous membranes. Conjunctivae appear well perfused. No thyroid mass. CHEST: Chest wall is nontender. HEART: Regular rate and rhythm without murmurs. LUNGS: Clear to auscultation bilaterally. ABDOMEN: Soft, positive bowel sounds, RUQ tender, no organomegaly.no flank tenderness--large right ventral hernia SKIN: No rash, no excessive bruising, petechiae, or purpura. NEUROLOGIC: Cranial nerves II-XII intact without motor/sensory deficit. A/P: 1/ Opiate related side effect and GI dysmotility, seems to be doing well with current treatment regimen- 2/ RUQ pain with nausea, hx of cholecystectomy, ?SOD, or retained stones--us was neg and LFT were neg ?musculoskeletal PLAN: 1/ cont with relistor, , and compazine prn, low dose linaclotide 2/ will give her sucralfate as helps her, only liquis formulation works, she tried tab and not effective, plus hard to swallow 3/ cont with bentyl as levsin not covered 4/ if recurrence of pain or abn LFT then [facility] Medical History Seasonal allergies Use of cane as ambulatory aid CTS (carpal tunnel syndrome) Abdominal hernia Morbid obesity due to excess calories Incisional hernia UTI (urinary tract infection) Chronic back pain Diverticulitis Diverticulitis History of diverticulitis SIRS (systemic inflammatory response syndrome) Abdominal pain Asthma Depression Migraines Diabetes 1.5, managed as type 2 HTN (hypertension) Surgical History Hx of hernia repair Hx of surgical procedure (~08/25/23) Hx of hand surgery Hx of colonoscopy History of esophagogastroduodenoscopy (EGD) History of partial colectomy History of hysterectomy History of cholecystectomy Family History Father Cancer Social History Household Members: Significant Other Housing: Apartment Are you a primary healthcare management consultant to a significant other at home: No Do you presently have visiting nurse or other home services: No Alcohol intake: never Comment: Pt. sleeping Patient Tobacco Use Status: Never used Tobacco e-Cigarette/Vaping Use: Never Used Second Hand Smoke Exposure: Yes Advance Directives Date on File: 10/02/20 service: No Current occupational status: disabled Physical Exam Vital Signs: Last Vital Signs Pulse 78 06/27/24 12:31 BP 142/64 H 06/27/24 12:31 BMI result Body Mass Index 30.1 Assessment & Plan Assessment & Plan (1) RUQ abdominal pain: Code(s): R10.11 - Right upper quadrant pain Category: Medical Plan: see above Coding Level of Care Code Est Pt Level 3 (22773) Diagnoses RUQ abdominal pain R10.11
[2024-06-27 12:31] VITALS: BP 142/64; PULSE 78; BMI 30.1
== END 2024-06-27 13:13 | disposition home or self-care (01) ==
PROVIDERS: PCP Family Medicine; Visit Provider Internal Medicine Gastroenterology
DX: R10.11 Right upper quadrant pain (principal)
CPT/HCPCS: 99213

== ENCOUNTER → 2024-06-27 12:25 | Outpatient (BNVA) | payer MEDICARE, MEDICAID, SELFPAY | PROVIDERS: PCP Family Medicine; Visit Provider Internal Medicine Gastroenterology | DX: R10.11 Right upper quadrant pain (principal); Z90.49 Acquired absence of other specified parts of digestive tract | CPT/HCPCS: 99212 ==

== ENCOUNTER 2024-07-20 11:24 | Outpatient (REF) | payer MEDICARE, MEDICAID, SELFPAY ==
--- NOTE | ~2024-07-20 | US_ITS ---
CLINICAL HISTORY: N20.0 - Calculus of kidney US Renal Comparison: US/AK/SR - US RENAL BI - 12/24/23 11:28 EDT Findings: Right kidney normal size and echotexture, 11.5 cm length. 9 mm upper pole cyst. Left kidney normal size and echotexture, 11 cm length. 6 mm lower pole cyst. No collecting system dilatation of either kidney. Normal color Doppler. IMPRESSION: No evidence of kidney stone. This document has been electronically signed by: Mac Salazar MD on 07/20/2024 16:00:45
== END 2024-07-20 11:25 | disposition home or self-care (01) ==
LOC: HO.HMGCX 11:24
PROVIDERS: PCP Family Medicine; Visit Provider Nurse Practitioner Family
DX: N20.0 Calculus of kidney (principal)
CPT/HCPCS: 76775

== ENCOUNTER → 2024-07-20 11:26 | Outpatient (BNV) | payer MEDICARE, MEDICAID, SELFPAY | PROVIDERS: PCP Family Medicine; Visit Provider Nuclear Medicine | DX: N20.0 Calculus of kidney (principal) | CPT/HCPCS: 76775 ==

== ENCOUNTER 2024-07-26 13:37 | Outpatient (AMB) | payer MEDICARE, MEDICAID, SELFPAY ==
--- NOTE | 2024-07-26 13:39 | MHC.OFFVIS ---
Intake Visit Reasons: 6M US(set) Intake Note: Patient presents for follow up nephrolithiasis/ultrasound Imaging Completed: 07/20/24 Urology Medications: Vitamin B6 Blood Thinner: aspirin Telecom Coordinator Required: No Accompanied by: Self / Same As Patient Allergies acetaminophen [From Tylenol] Allergy (Severe, Verified 07/26/24 14:01) Gastrointestinal Upset esomeprazole [Nexium] Allergy (Severe, Verified 07/26/24 14:01) rash famotidine [From PEPCID] Allergy (Severe, Verified 07/26/24 14:01) Gastrointestinal Upset, rash gabapentin [GABAPENTIN] Allergy (Severe, Verified 07/26/24 14:01) ABD PAIN lansoprazole [Prevacid] Allergy (Severe, Verified 07/26/24 14:01) Gastrointestinal Upset, rash Penicillins [PENICILLINS] Allergy (Severe, Verified 07/26/24 14:01) RASH, stomach pains tramadol Allergy (Severe, Verified 07/26/24 14:01) Gastrointestinal Upset, hives morphine Adverse Reaction (Severe, Verified 07/26/24 14:01) migraine headache adhesive tape Adverse Reaction (Intermediate, Verified 07/26/24 14:01) Redness of Skin Medication List - Last Reviewed 07/26/24 by Em Ramos [abdominal binder As directed] albuterol sulfate 90 mcg/actuation 2 puffs inhalation Q4H PRN aspirin 81 mg PO DAILY atorvastatin 1 tab PO DAILY betamethasone dipropionate 0.05% 1 appl topical DAILY blood sugar diagnostic As directed budesonide 180 mcg/actuation (Pulmicort Flexhaler) 1 puff PO BID bupropion HCl XL 300 mg PO DAILY hbnczrabxl-qknmixo-pzwelcko 50-325-40 mg 1 cap PO Q6H PRN calcium carbonate-vitamin D3 600 mg-10 mcg (400 unit) 1 tab PO BID conjugated estrogens (Premarin) 0.625 mg vaginal DAILY cromolyn 4% 1 drp ophthalmic (eye) QID cyanocobalamin (vitamin B-12) 1,000 mcg IM QMONTH dicyclomine 10 mg PO Q6-8H PRN docusate sodium (Colace) 100 mg PO BID dulaglutide (Trulicity) 0.75 mg subcut .QTHURSDAY dupilumab (Dupixent) 300 mg subcut Q2W estradiol 1 patch transdermal QWEEK ferrous gluconate 324 mg PO BID fluticasone furoate-vilanterol 200-25 mcg/dose (Breo Ellipta) 1 ea inhalation DAILY hyoscyamine sulfate 0.125 mg PO BID-QID PRN lancets As directed levocetirizine 1 tab PO BEDTIME linaclotide (Linzess) 72 mcg PO DAILY lisinopril 2.5 mg PO DAILY lorazepam 0.5 mg PO BID PRN methylnaltrexone (Relistor) 450 mg (3 x 150 mg) PO DAILY omeprazole 40 mg PO BID ondansetron 8 mg PO Q8H oxycodone 7.5 mg PO TID PRN oxycodone 10 mg PO TID PRN oxycodone-acetaminophen 5-325 mg (Percocet) 1 tab PO TID PRN promethazine 25 mg PO Q4-6H PRN pyridoxine (vitamin B6) 50 mg PO DAILY 90 days sucralfate (Carafate) 5 mL PO QID sumatriptan succinate 100 mg PO DAILY MRX1 PRN tiotropium bromide 2.5 mcg/actuation (Spiriva Respimat) 2 puffs inhalation DAILY tirzepatide (Mounjaro) mg subcut zafirlukast 20 mg PO BID zolpidem 10 mg PO BEDTIME PRN HPI Comments Details: Pati is a pleasant 63-year-old female patient of Dr. Adam. She has a past medical history of incisional hernia, UTI, chronic back pain, diverticulitis, systemic inflammatory response syndrome, asthma, depression, migraines, diabetes, and hypertension. She presents to the office today for follow-up of her nephrolithiasis and renal cysts. In discussion with the patient today she reports to be doing and feeling well. She discusses her 's ongoing issues with his pancreas. Urologically she denies having had any bothersome urinary issues or concerns. She does report noting baseline mixed urinary incontinence however feels she is managing this well independently in does not currently wish to undergo further workup at this time and or further treatment options. Recent renal imaging results reviewed with the patient today 07/19 bilateral kidneys are normal in size and echotexture. Bilateral kidneys with9-6mm renal cysts. No collecting system dilatation of either kidney no evidence of kidney stones noted bilaterally. In office urinalysis results reviewed with the patient today. When asked she denies urinary urgency, urinary frequency, nocturia, hematuria, dysuria, foul smelling urine, changes to urinary stream, flank pain, fever, and or chills. She reports compliance with vitamin B6 and adequate hydration daily. She otherwise denies any bothersome urinary issues or concerns at this time. [facility] Medical History Seasonal allergies Use of cane as ambulatory aid CTS (carpal tunnel syndrome) Abdominal hernia Morbid obesity due to excess calories Incisional hernia UTI (urinary tract infection) Chronic back pain Diverticulitis Diverticulitis History of diverticulitis SIRS (systemic inflammatory response syndrome) Abdominal pain Asthma Depression Migraines Diabetes 1.5, managed as type 2 HTN (hypertension) Surgical History Hx of hernia repair Hx of surgical procedure (~08/25/23) Hx of hand surgery Hx of colonoscopy History of esophagogastroduodenoscopy (EGD) History of partial colectomy History of hysterectomy History of cholecystectomy Family History Father Cancer Social History Household Members: Significant Other Housing: Apartment Are you a primary md do resident urgent care to a significant other at home: No Do you presently have visiting nurse or other home services: No Alcohol intake: never Comment: Pt. sleeping Patient Tobacco Use Status: Never used Tobacco e-Cigarette/Vaping Use: Never Used Second Hand Smoke Exposure: Yes Advance Directives Date on File: 10/02/20 service: No Current occupational status: disabled Review of Systems Const Reports as per HPI Eyes Reports no additional complaints ENT Reports no additional complaints Card Reports as per HPI Resp Reports as per HPI GI Reports as per HPI Reports as per HPI Musc Reports as per HPI Neuro Reports as per HPI Psych Reports as per HPI Endo Reports as per HPI Bipin/Lymph Reports no additional complaints Aller/Immun Reports no additional complaints Physical Exam Const General: cooperative, healthy appearing, comfortable, no acute distress, well developed, alert and awake Orientation/consciousness: patient oriented x3 Limitations: no limitations HEENT Head: Yes normal to inspection, Yes normocephalic and Yes atraumatic Ears: hearing grossly normal bilaterally Eyes General: appearance normal, both eyes and all related structures Neck Neck: Yes normal visual inspection and Yes trachea midline Chest Chest palpation & inspection: normal inspection of the chest Resp Effort & Inspection: normal respiratory effort and able to speak in complete sentences Cardio Rate: regular rate GI Inspection: Yes normal to inspection General: Yes no CVA tenderness Back/Spine/Pelvis Back: no CVA tenderness Skin General skin exam: no rashes or lesions noted Neuro General: patient oriented x3 Extrem General: Yes normal to inspection Psych Appearance: grossly normal and well kempt Mental Status: mental status grossly normal Speech and movement: Normal speech and movement present and Clear speech present Affect: normal affect Attitude: cooperative Thought process: Normal thought process present Thought content: Normal thought content present Insight: Good insight present (Psych) Judgement: Good judgement present (Psych) Results AMB Urinalysis, Automated UA Leukoctes 0 Tani/uL Last Edit by [employer] on 07/26/24 14:11 UA Nitrite Last Edit by [employer] on 07/26/24 14:11 UA Urobilinogen 0.2 mg/dL Last Edit by [employer] on 07/26/24 14:11 UA Protein 30 mg/dL Last Edit by [employer] on 07/26/24 14:11 UA pH 6.0 Last Edit by [employer] on 07/26/24 14:11 UA Blood 10 Terrell/uL Last Edit by [employer] on 07/26/24 14:11 UA Specific [place] 1.020 Last Edit by [employer] on 07/26/24 14:11 UA Ketone Negative Last Edit by [employer] on 07/26/24 14:11 UA Bilirubin 1 mg/dL Last Edit by [employer] on 07/26/24 14:11 UA Glucose 0 mg/dL Last Edit by [employer] on 07/26/24 14:11 Results Reviewed Results Reviewed: Date of Service: 07/20/24 Procedure(s): US renal BI FINDINGS: Right kidney normal size and echotexture, 11.5 cm length. 9 mm upper pole cyst. Left kidney normal size and echotexture, 11 cm length. 6 mm lower pole cyst. No collecting system dilatation of either kidney. Normal color Doppler. IMPRESSION: No evidence of kidney stone. Assessment & Plan Assessment & Plan (1) Renal cyst: Code(s): N28.1 - Cyst of kidney, acquired Category: Medical (2) Calculus of kidney: Code(s): N20.0 - Calculus of kidney Category: Medical (3) Urinary dribbling: Code(s): N39.43 - Post-void dribbling Category: Medical Plan In office urinalysis results reviewed with the patient today; as noted above. Recent renal imaging results reviewed with the patient today; as noted above. Will continue with surveillance monitoring of nephrolithiasis, renal cysts, and patient's mixed urinary incontinence. We discussed further treatment options and risks and benefits of these treatment options. Discussed, educated, and stressed the importance of adequate hydration relation to nephrolithiasis as well as overall health and well-being. Continue adding 1 oz of lemon juice to water daily. Continue vitamin B6; refill provided Will obtain renal ultrasound in 1 year Follow-up in 1 year with imaging to be completed prior; or sooner with any issues, concerns, and or questions. Orders: Orders US renal BI 1 Year N20.0 - Calculus of kidney, N28.1 - Cyst of kidney, acquired AMB Urinalysis Automated Today Z13.9 - Encounter for screening, unspecified Medications: Refilled pyridoxine (vitamin B6) 50 mg PO DAILY 90 days 90 tabs 1RF Patient Instructions: The patient had an opportunity to ask questions regarding the treatment plan. All questions were answered. Physical exam, labs, and imaging were discussed and reviewed in detail. As well as risks, benefits, and discussion of treatment choices. No major barriers to understanding were identified. The patient expressed understanding and agreement with the above treatment plan. The patient was made aware they should contact our office by phone for worsening of their current condition, the appearance of new symptoms, or with any questions or concerns. Compliance is encouraged with any medications and follow up testing that is ordered. It is a privilege to be allowed the opportunity to participate in? your urological care.? Again, if you have any questions or concerns If you have any questions or concerns please do not hesitate to contact me. The office is [phone]. This note is constructed using voice recognition software. While every effort has been made to ensure accuracy surgeon's assistant errors may have been included. Yours sincerely, Aura Esparza, LABORATORY HELPER- Coding Level of Care Code Est Pt Level 3 (50864) Diagnoses Renal cyst N28.1 Calculus of kidney N20.0 Urinary dribbling N39.43
--- OUTSIDE RECORDS SUMMARY | 2024-07-26 16:11 | XMS_ITS | Continuity of Care Document ---
Author Organization [facility] Address [address] [place] [address]- Care Team Providers Care Copy Camera Operator Name Role Phone Cooper Adam MD Primary Care Physician Encounter [facility] [place] Date(s): 05/19/24 - 07/22/24 [facility] [address] [place] [address]- Attending Physician: Not on Staff, Attending MD Encounter Type: Pre Office Visit Allergies, Adverse Reactions, Alerts Substance Criticality Severity Reaction Reaction Severity Status amoxicillin upset stomach Acti ve penicillin Active morphine Active MetFORMIN (Eqv-Glumetza) abdominal pain Active traMADol 1 Active methocarbamol choking Active Nexium rash Active 1upset stomach Immunizations Given and Recorded Vaccine Date Status Refusal Reason influenza virus vaccine, inactivated 01/12/24 John rded influenza virus vaccine, inactivated 01/30/23 John rded influenza virus vaccine, inactivated 02/26/22 Give n influenza virus vaccine, inactivated 1 02/18/21 Gi maxime influenza virus vaccine, inactivated 2 01/31/20 Gi maxime influenza virus vaccine, inactivated 3 01/21/18 Gi maxime influenza virus vaccine, inactivated 03/11/17 John rded influenza virus vaccine, inactivated 01/23/15 John rded influenza virus vaccine, inactivated 01/25/14 John rded influenza virus vaccine, inactivated 4 02/09/13 Re corded influenza virus vaccine, inactivated 5 01/06/11 Gi maxime influenza virus vaccine, inactivated 6 02/08/10 Gi maxime influenza virus vaccine, inactivated 7 03/03/09 Gi maxime tetanus/diphtheria/pertussis, acel(Tdap) 01/12/24 Recorded tetanus/diphtheria/pertussis, acel(Tdap) 8 01/09/11 Given SARS-CoV-2(COVID-19)mRNA-LNP vac([id number]) 01/12/24 Recorded SARS-CoV-2(COVID-19)mRNA-LNP vac([id number]) 01/30/23 Recorded RSV vaccine preF3, recombinant 01/30/23 Recorded pneumococcal 20-valent conjugate vaccine 01/30/23 Recorded [id number] 12y+ bivalent booster vax 02/26/22 Given SARS-CoV-2 (COVID-19) mRNA BNT-162b2 vac 9 03/14/21 Given SARS-CoV-2 (COVID-19) mRNA BNT-162b2 vac 08/26/20 Recorded SARS-CoV-2 (COVID-19) mRNA BNT-162b2 vac 08/05/20 Recorded zoster vaccine, inactivated 05/16/19 Recorded zoster vaccine, inactivated 02/15/19 Recorded Influenza Virus Vaccine (oldterm) 02/15/19 Recorde d tetanus-diphtheria toxoids (Td) 02/15/19 Recorded pneumococcal 23-valent vaccine 02/15/19 Recorded pneumococcal 23-valent vaccine 10 06/26/17 Given influ virus vac, H1N1, inactive(oldterm) 03/19/09 Given influ virus vac, H1N1, inactive(oldterm) 03/19/09 Given Influenza Inactive (IM) (oldterm) 11 02/05/07 Give n 1Result Comment: [facility] [id number] 2Result Comment: [facility]:[id number] 3Result Comment: [01/21/2018] [facility]:[id number] 4Result Comment: [02/25/2013] [facility] 5Admin Note: vis given 12-05-08 FL[facility] Formula 6Admin Note: vis given 12-05-08 7Admin Note: VIM given 12-05-2008 8Admin Note: VIM 03/14/08 9Result Comment: [facility]:[id number] 10Result Comment: [06/26/2017] [facility]# [id number] 11Admin Note: VIM-SANOFI Medications acetaminophen/butalbital/caffeine 325 mg-50 mg-40 mg oral tablet 30 each, 0 Refill(s), TAKE 1 TABLET BY MOUTH EVERY 6 HOURS NEEDED, 0 Refills, 11/24/23 11:09:00 AM EDT, Partial fill upon patient request if the prescription is for a schedule II opioid drug. Start Date: 11/24/23 Status: Ordered Repeat number: 1 albuterol 0.083% inhalation solution 3 mL = 2.5 mg, Inhalation, Every 6 hours, ICD10: J45.909 may dispense less, # 360 mL, 11 Refills, Maintenance, 02/16/20 9:44:00 AM EDT, Solution, [facility], [facility]; , 155, cm, 01/31/20 12:47:00 EDT, Height Start Date: 02/16/20 Status: Ordered Quantity: 360.0 Unit: mL Repeat number: 12 Ambien 10 mg oral tablet 1 tablet = 10 mg, By Mouth, Daily at bedtime, masspat checked DNF 06/13/2024, # 28 tablet, 0 Refills, Acute 06/13/25 11:25:00 AM EST, 06/13/24 12:27:00 PM EST, Tablet, [facility] #[id number], Partial fill upon patient request if the prescription is for a schedule II opioid drug., 06/13/24, 156, cm, 05/13/24 12:52:00 EST, Height, 80.9, kg, 04/29/23 15:01:00 EST, Dry Weight Start Date: 06/13/24 Stop Date: 06/13/25 Status: Ordered Quantity: 28.0 Unit: tablet Repeat number: 1 Indication: Insomnia, unspecified Ambien 10 mg oral tablet 1 tablet = 10 mg, By Mouth, Daily at bedtime, for 28 days, masspat checked, # 28 tablet, 0 Refills,Acute 07/11/25 11:25:00 AM EDT, 06/13/25 11:25:00 AM EST, Tablet, [facility]/pharmacy #[id number], Partial fill upon patient request if the prescription is for a schedule II opioid drug., 03/26/25, 156, cm, 06/29/24 10:48:00 EST, Height, 80.9, kg, 04/29/23 15:01:00 EST, Dry Weight Start Date: 06/13/25 Stop Date: 07/11/25 Status: Ordered Quantity: 28.0 Unit: tablet Repeat number: 1 Indication: Insomnia, unspecified Ambien 10 mg oral tablet 1 tablet = 10 mg, By Mouth, Daily at bedtime, masspat checked DNF 05/05/2024, # 28 tablet, 0 Refills, Acute 05/27/25 2:24:00 PM EST, 05/02/24 8:14:00 AM EST, Tablet, [facility]/pharmacy #[id number], Partial fill upon patient request if the prescription is for a schedule II opioid drug., 05/05/24, 156, cm, 04/22/24 11:43:00 EST, Height, 80.9, kg, 04/29/23 15:01:00 EST, Dry Weight Start Date: 05/02/24 Stop Date: 05/27/25 Status: Ordered Quantity: 28.0 Unit: tablet Repeat number: 1 Indication: Insomnia, unspecified aspirin 81 mg oral delayed release tablet 81 mg, 1, tablet, By Mouth, Daily, Refills 0, Maintenance, 06/29/20 4:51:00 PM EST, Partial fill uponpatient request if the prescription is for a schedule II opioid drug. Start Date: 06/29/20 Status: Ordered Repeat number: 1 atorvastatin 20 mg oral tablet See Instructions, TAKE 1 TABLET BY MOUTH EVERY DAY, # 90 tablet, 1 Refills, Maintenance, 03/22/24 12:24:00 PM EST, [facility]/pharmacy #[id number], 156, cm, 03/16/24 12:58:00 EST, Height, 80.9, kg, 04/29/23 15:01:00 EST, Dry Weight Start Date: 03/22/24 Status: Ordered Quantity: 90.0 Unit: tablet Repeat number: 2 benzonatate 100 mg oral capsule 90 each, 0 Refill(s), 0 Refills, 11/24/23 11:09:00 AM EDT, Partial fill upon patient request if the prescription is for a schedule II opioid drug. Start Date: 11/24/23 Status: Ordered Repeat number: 1 betamethasone topical dipropionate 0.05% cream See Instructions, APPLY TOPICALLY TO THE AFFECTED skin on back area of vaginal opening AREA 2-3 TIMES A WEEK NEEDED, # 45 Gm, 1 Refills, Maintenance, 12/10/23 2:52:00 PM EDT Start Date: 12/10/23 Status: Ordered Quantity: 45.0 Unit: g Repeat number: 2 BioStim Pre-Wired Electrode [id number] BioStim Pre-Wired Electrode [id number], See Instructions, # 10 tablet, Refills 3, Tot. Refills 3, Maintenance, Tens Unit Carbon Filled electrodes size: 2X2 quantity 4 DX: Back pain ICD 10: 724.5, 02/12/23 8:32:00 AM EDT, Compound, 156, cm, 02/12/23 7:55:00 EDT, Height, 74.4, kg, 11/13/22 9:22:00 EDT, Dry Weight Start Date: 02/12/23 Status: Ordered Quantity: 10.0 Unit: tablet Repeat number: 4 buPROPion 300 mg/24 hours (XL) oral tablet, extended release 1 tablet, By Mouth, Daily, # 90 tablet, 3 Refills, Maintenance, 12/09/23 9:02:00 AM EDT, [facility] #[id number], 156, cm, 12/09/23 8:36:00 EDT, Height, 80.9, kg, 04/29/23 15:01:00 EST, Dry Weight Start Date: 12/09/23 Status: Ordered Quantity: 90.0 Unit: tablet Repeat number: 4 Indication: Major depressive disorder, single episode, in full remission calcium-vitamin D 600 mg-400 intl units oral tablet 1 tablet, By Mouth, 2 times a day, # 180 tablet, 3 Refills, Maintenance, 04/22/24 12:34:00 PM EST, [facility]/pharmacy #[id number], 1 tablet By Mouth 2 times a day, 156, cm, 04/22/24 11:43:00 EST, Height, 80.9, kg, 04/29/23 15:01:00 EST, Dry Weight Start Date: 04/22/24 Status: Ordered Quantity: 180.0 Unit: tablet Repeat number: 4 cromolyn 4% ophthalmic solution See Instructions, INSTILL 1 DROP IN BOTH EYES 4 TIMES A DAY, # 10 mL, 3 Refills, Maintenance, 04/08/24 2:28:00 PM EST, [id number], 15, INSTILL 1 DROP IN BOTH EYES 4 TIMES A DAY, 156, cm, 03/31/24 12:38:00 EST, Height, 80.9, kg, 04/29/23 15:01:00 EST, Dry Weight Start Date: 04/08/24 Status: Ordered Quantity: 10.0 Unit: mL Repeat number: 1 dicyclomine 10 mg oral capsule 2 capsule = 20 mg, By Mouth, 4 times a day, 0 Refills, Maintenance, 10/04/21 11:27:00 AM EDT, Partial fill upon patient request if the prescription is for a schedule II opioid drug. Start Date: 10/04/21 Status: Ordered Repeat number: 1 docusate sodium 100 mg oral capsule 1 capsule = 100 mg, By Mouth, 2 times a day, # 180 capsule, 3 Refills, Maintenance, 05/19/24 9:45:00AM EST, [facility] #[id number], 156, cm, 05/13/24 12:52:00 EST, Height, 80.9, kg, 04/29/23 15:01:00 EST, Dry Weight Start Date: 05/19/24 Status: Ordered Quantity: 180.0 Unit: capsule Repeat number: 4 Dupixent Pre-filled Pen 300 mg/2 mL subcutaneous solution 4 mL, 0 Refill(s), 0 Refills, 11/13/22 10:17:00 AM EDT, Partial fill upon patient request if the prescription is for a schedule II opioid drug. Start Date: 11/13/22 Status: Ordered Repeat number: 1 estradiol 0.1 mg/g vaginal cream See Instructions, APPLY 1 GRAM VAGINALLY AT BEDTIME FOR 2 WEEKS. THEN USE 2 TO 3 TIMES PER WEEK FORMAINTENANCE, # 42.5 Gm, 3 Refills, Maintenance, 12/23/23 8:34:00 AM EDT, [facility] #[id number], 156, cm, 12/10/23 14:18:00 EDT, Height, 80.9, kg, 04/29/23 15:01:00 EST, Dry Weight Start Date: 12/23/23 Status: Ordered Quantity: 42.5 Unit: g Repeat number: 1 Estradiol Patch 0.025 mg/24 hours weekly transdermal film, extended release 1 patch, Topically, Every week, # 12 patch, 4 Refills, Maintenance, 11/11/23 8:03:00 AM EDT, [facility] #[id number], 156, cm, 08/20/23 11:18:00 EDT, Height, 80.9, kg, 04/29/23 15:01:00 EST, Dry Weight Start Date: 11/11/23 Status: Ordered Quantity: 12.0 Unit: patch Repeat number: 1 ferrous gluconate 324 mg oral tablet TAKE 1 TABLET BY MOUTH 2 TIMES A DAY. Start Date: 07/01/21 Status: Ordered Repeat number: 1 Folate Forte oral tablet 1 tablet, By Mouth, Daily, # 90 tablet, 3 Refills, Maintenance, 12/09/23 9:07:00 AM EDT, [facility] #[id number], Partial fill upon patient request if the prescription is for a schedule II opioid drug., 1 tablet By Mouth Daily, 156, cm, 12/09/23 8:36:00 EDT, Height, 80.9, kg, 04/29/23 15:01:00 EST, Dry Weight Start Date: 12/09/23 Status: Ordered Quantity: 90.0 Unit: tablet Repeat number: 4 Indication: Deficiency of other specified B group vitamins FREESTYLE LITE BLOOD GLUCOSE STRIPS FREESTYLE LITE BLOOD GLUCOSE STRIPS, See Instructions, # 300 Unknown, 0 Refills, Maintenance, TEST BLOOD SUGAR THREE TIMES DAILY, 05/19/24 9:30:00 AM EST, 156, cm, 05/13/24 12:52:00 EST, Height, 80.9,kg, 04/29/23 15:01:00 EST, Dry Weight Start Date: 05/19/24 Status: Ordered Quantity: 300.0 Unit: Unknown Repeat number: 1 Freestyle Lite Monitor See Instructions, # 1 each, Refills 0, Tot. Refills 0, Maintenance, Use to test blood glucose level, 3 times a day, ICD10: E11.9, 06/23/24 1:12:00 PM EST, Supply, 156, cm, 05/13/24 12:52:00 EST, Height, 80.9, kg, 04/29/23 15:01:00 EST, Dry Weight Start Date: 06/23/24 Status: Ordered Quantity: 1.0 Unit: each Repeat number: 1 Indication: Type 2 diabetes mellitus without complications Freestyle Lite Test Strips See Instructions, # 100 each, Refills 1, Tot. Refills 1, Maintenance, Use to test blood glucose level, 1 time a day, ICD10: E11.9, 01/18/24 11:16:00 AM EDT, CMN Form was faxed today, Supply, 156, cm, 01/04/24 12:38:00 EDT, Height, 80.9, kg, 04/29/23 15:01:00 EST, Dry Weight Start Date: 01/18/24 Status: Ordered Quantity: 100.0 Unit: each Repeat number: 2 Indication: Type 2 diabetes mellitus without complications levalbuterol 0.31 mg/3 mL inhalation solution 11 Refill(s), INHALE 1 VIAL BY NEBULIZATION EVERY 4 HOURS NEEDED FOR WHEEZING OR SHORTNESS OF BREATH/DYSPNEA. Dx codes:J45.51 and r25.1, 0 Refills, 11/05/22 8:00:00 PM EDT, Partial fill upon patient request if the prescription is for a schedule II opioid drug. Start Date: 11/05/22 Status: Ordered Repeat number: 1 levocetirizine 5 mg oral tablet 1 tablet, By Mouth, Daily in PM, # 90 tablet, 1 Refills, Maintenance, 06/17/24 10:45:00 PM EST, [id number], 90, 1 tablet By Mouth Daily in PM, 156, cm, 05/13/24 12:52:00 EST, Height, 80.9, kg, 04/29/23 15:01:00 EST, Dry Weight Start Date: 06/17/24 Status: Ordered Quantity: 90.0 Unit: tablet Repeat number: 2 Linzess 72 mcg oral capsule 1 capsule = 72 mcg, By Mouth, Daily, do not crush or chew, # 30 capsule, 0 Refills, Maintenance, 11/24/23 10:42:00 AM EDT, Capsule, Partial fill upon patient request if the prescription is for a schedule II opioid drug. Start Date: 11/24/23 Status: Ordered Quantity: 30.0 Unit: capsule Repeat number: 1 lisinopril 2.5 mg oral tablet 1, tablet, By Mouth, Daily, # 90 tablet, Refills 1, Maintenance, 07/20/24 1:15:00 PM EDT, Route to Pharmacy Electronically, [facility] #[id number], 156, cm, 06/29/24 10:48:00 EST, Height, 80.9, kg, 04/29/23 15:01:00 EST, Dry Weight Start Date: 07/20/24 Status: Ordered Quantity: 90.0 Unit: tablet Repeat number: 1 LORazepam 0.5 mg oral tablet 1 tablet = 0.5 mg, By Mouth, 2 times a day, PRN as needed for anxiety, ok to fill TAKE ONLY NEEDED Masspat checked DNF until 06/16/2024, # 56 tablet, 0 Refills, Hard Stop 07/14/25 9:36:00 AM EDT, 06/13/24 12:27:00 PM EST, Tablet, [facility] #[id number], Partial fill upon patient request if the prescription is for a schedule II opioid drug., 06/16/24, 156, cm, 05/13/24 12:52:00 EST, Height, 80.9, kg, 04/29/23 15:01:00 EST, Dry Weight Start Date: 06/13/24 Stop Date: 07/14/25 Status: Ordered Quantity: 56.0 Unit: tablet Repeat number: 1 Indication: Anxiety disorder, unspecified LORazepam 0.5 mg oral tablet 1 tablet = 0.5 mg, By Mouth, 2 times a day, PRN as needed for anxiety, ok to fill TAKE ONLY NEEDED Masspat checked, # 56 tablet, 0 Refills, Maintenance, 07/14/25 9:36:00 AM EDT, Tablet, [facility]/pharmacy #[id number], Partial fill upon patient request if the prescription is for a schedule II opioid drug., 156, cm, 06/29/24 10:48:00 EST, Height, 80.9, kg, 04/29/23 15:01:00 EST, Dry Weight Start Date: 07/14/25 Status: Ordered Quantity: 56.0 Unit: tablet Repeat number: 1 Indication: Anxiety disorder, unspecified Mounjaro 2.5 mg/0.5 mL subcutaneous solution = 2.5 mg, Subcutaneous Injection, Every week, rotate injection sites, # 4 each, 1 Refills, Maintenance, 05/19/24 9:47:00 AM EST, Solution, [facility] #[id number], Partial fill upon patient request if the prescription is for a schedule II opioid drug., 156, cm, 05/13/24 12:52:00 EST, Height, 80.9, kg, 04/29/23 15:01:00 EST, Dry Weight Start Date: 05/19/24 Status: Ordered Quantity: 4.0 Unit: each Repeat number: 2 Mounjaro 5 mg/0.5 mL subcutaneous solution = 5 mg, Subcutaneous Injection, Every week, rotate injection sites, # 4 each, 2 Refills, Maintenance, 06/23/24 1:13:00 PM EST, [facility] #[id number], Partial fill upon patient request if the prescription is for a schedule II opioid drug., 156, cm, 05/13/24 12:52:00 EST, Height, 80.9,kg, 04/29/23 15:01:00 EST, Dry Weight Start Date: 06/23/24 Status: Ordered Quantity: 4.0 Unit: each Repeat number: 3 nystatin topical [id number] u/gm powder 1 application, Topically, 2 times a day, under breasts, # 60 Gm, 5 Refills, Maintenance, 08/24/20 1:29:00 PM EDT, Powder, [facility]/pharmacy #[id number], 1 application Topically 2 times a day,Instr:under breasts,155.8, cm, 08/08/20 11:17:00 EDT, Height Start Date: 08/24/20 Status: Ordered Quantity: 60.0 Unit: g Repeat number: 6 omeprazole 40 mg oral enteric coated capsule 1 capsule = 40 mg, By Mouth, Daily, 0 Refills, Maintenance, 06/03/22 11:47:00 AM EST, Partial fill upon patient request if the prescription is for a schedule II opioid drug. Start Date: 06/03/22 Status: Ordered Repeat number: 1 ondansetron 8 mg oral tablet, disintegrating See Instructions, TAKE 1 TABLET BY MOUTH THREE TIMES A DAY FOR 10 DAYS NEEDED FOR NAUSEA, # 10 tablet, 14 Refills, Maintenance, 05/21/22 9:38:00 AM EST, [facility] [id number], 156, cm, 05/21/22 8:21:00 EST, Height, 78, kg, 04/01/22 13:29:00 EST, Dry Weight Start Date: 05/21/22 Status: Ordered Quantity: 10.0 Unit: tablet Repeat number: 1 oxyCODONE 10 mg oral tablet 1 tablet = 10 mg, By Mouth, Every 8 hours, Auto refill Masspat checked DNF until 07/14/2024, # 84 tablet, 0 Refills, Acute 08/19/24 9:34:00 AM EDT, 07/14/24 7:42:00 AM EDT, [facility]/pharmacy #[id number], Partial fill upon patient request if the prescription is for a schedule II opioid drug., 156, cm, 06/29/24 10:48:00 EST, Height, 80.9, kg, 04/29/23 15:01:00 EST, Dry Weight Start Date: 07/14/24 Stop Date: 08/19/24 Status: Ordered Quantity: 84.0 Unit: tablet Repeat number: 1 oxyCODONE 10 mg oral tablet 1 tablet = 10 mg, By Mouth, Every 8 hours, Auto refill Masspat checked DNF until 05/16/2024, # 84 tablet, 0 Refills, Acute 07/14/25 9:34:00 AM EDT, 06/13/24 12:27:00 PM EST, [facility] #[id number], Partial fill upon patient request if the prescription is for a schedule II opioid drug., 06/16/24,156, cm, 05/13/24 12:52:00 EST, Height, 80.9, kg, 04/29/23 15:01:00 EST, Dry Weight Start Date: 06/13/24 Stop Date: 07/14/25 Status: Ordered Quantity: 84.0 Unit: tablet Repeat number: 1 Premarin Vaginal 0.625 mg/gm cream with applicator See Instructions, 1 Gm Vaginally Daily at bedtime x 2 weeks then 2-3 times per week, # 30 Gm, 4 Refills, Maintenance, 12/10/22 2:11:00 PM EDT, [facility] #[id number], Partial fill upon patient request if the prescription is for a schedule II opioid drug., 1 Gm Vaginally Daily at bedtime x 2 weeks then 2-3 times per week, 156, cm, 12/01/22 11:31:00 EDT, Height, 74.4, kg, 11/13/22 9:22:00 EDT, Dry Weight Start Date: 12/10/22 Status: Ordered Quantity: 30.0 Unit: g Repeat number: 5 promethazine 25 mg oral tablet See Instructions, TAKE 1 TABLET BY MOUTH EVERY 4 HOURS NEEDED FOR NAUSEA/VOMITING, # 60 tablet, 1 Refills, Maintenance, 06/02/22 2:43:00 PM EST, [facility]/pharmacy #[id number], 156, cm, 05/21/22 8:21:00 EST, Height, 78, kg, 04/01/22 13:29:00 EST, Dry Weight Start Date: 06/02/22 Status: Ordered Quantity: 60.0 Unit: tablet Repeat number: 2 Relistor 150 mg oral tablet 90 each, 0 Refill(s), TAKE 3 TABLETS BY MOUTH DAILY, 0 Refills, 11/13/22 10:18:00 AM EDT, Partial fill upon patient request if the prescription is for a schedule II opioid drug. Start Date: 11/13/22 Status: Ordered Repeat number: 1 Rollator walker with seat Rollator walker with seat, See Instructions, # 1 each, Refills 0, Tot. Refills 0, Maintenance, Rollator walker with seat, 09/02/23 3:58:00 PM EDT, Supply Start Date: 09/02/23 Status: Ordered Quantity: 1.0 Unit: each Repeat number: 1 Spiriva Respimat 10 ACT 2.5 mcg/inh inhalation aerosol 2 Unknown, Inhalation, 4 Refill(s), Inhale 2 puffs into the lungs daily., 0 Refills, 04/24/22 11:15:00 AM EST, Partial fill upon patient request if the prescription is for a schedule II opioid drug. Start Date: 04/24/22 Status: Ordered Repeat number: 1 sucralfate 1 gm oral tablet 1 Gm, 1, tablet, By Mouth, 4 times a day, # 120 tablet, Refills 1, Tot. Refills 1, Maintenance, 03/16/24 1:21:00 PM EST, Route to Pharmacy Electronically, [facility]/pharmacy #[id number], Partial fill upon patient request if the prescription is for a schedule II opioid drug., 156, cm, 03/16/24 12:58:00 EST, Height, 80.9, kg, 04/29/23 15:01:00 EST, Dry Weight Start Date: 03/16/24 Status: Ordered Quantity: 120.0 Unit: tablet Repeat number: 2 Indication: Gastro-esophageal reflux disease without esophagitis sucralfate 1 gm/10 ml oral suspension 10 mL, By Mouth, 3 times a day with meals, # 1,200 mL, 2 Refills, Maintenance, 03/31/24 12:51:00 PM EST, [facility]/pharmacy #[id number], 156, cm, 03/31/24 12:38:00 EST, Height, 80.9, kg, 04/29/23 15:01:00 EST, Dry Weight Start Date: 03/31/24 Status: Ordered Quantity: 1200.0 Unit: mL Repeat number: 3 Indication: Gastro-esophageal reflux disease with esophagitis, without bleeding SUMAtriptan 100 mg oral tablet 12 each, 0 Refill(s), 0 Refills, 11/13/22 10:18:00 AM EDT, Partial fill upon patient request if the prescription is for a schedule II opioid drug. Start Date: 11/13/22 Status: Ordered Repeat number: 1 tiZANidine 4 mg oral tablet 1, tablet, By Mouth, Every 8 hours, MAX 3 TIMES DAILY., # 90 tablet, Refills 0, Maintenance, 04/25/24 3:29:00 PM EST, Route to Pharmacy Electronically, [id number], 156, cm, 04/22/24 11:43:00 EST, Height, 80.9, kg, 04/29/23 15:01:00 EST, Dry Weight Start Date: 04/25/24 Status: Ordered Quantity: 90.0 Unit: tablet Repeat number: 1 Vitamin B6 Daily, 0 Refills, Maintenance, 10/04/21 11:20:00 AM EDT, Partial fill upon patient request if the prescription is for a schedule II opioid drug. Start Date: 10/04/21 Status: Ordered Repeat number: 1 zafirlukast 20 mg oral tablet 1 tablet = 20 mg, By Mouth, 2 times a day, 0 Refills, Maintenance, 06/29/20 4:48:00 PM EST, Partial fill upon patient request if the prescription is for a schedule II opioid drug. Start Date: 06/29/20 Status: Ordered Repeat number: 1 Problem List Condition Confirmation Course Effective Dates Status H ealth Status Informant Allergic conjunctivitis Confirmed Active Anxiety Confirmed Active Chronic pain syndrome Confirmed Active Fibromyalgia Confirmed Active Gastro-esophageal reflux Confirmed Active Hyperlipidemia Confirmed Active Hypertension Confirmed Active Insomnia Confirmed Active Lumbar radiculitis Confirmed Active Lumbar radiculopathy Confirmed Active Asthma, moderate persistent Confirmed Active Obese class I Confirmed Active Dyspareunia, female Confirmed Active Polypharmacy Confirmed Active Major depression, recurrent Confirmed Active Diabetes mellitus, type 2 Confirmed Active Urolithiasis Confirmed Active Social History Social History Type Response Smoking Status Never smoker; Tobacc o user in household: No entered on: 12/05/13 Sex Female Sex Representation Female (finding) Patient Care team information Care Team Personnel Name: Cooper Adam MD Position: [facility] Physician - Primary Care Member Role: PCP Address: [address] [place] [address] Telecom: Care Team Related Persons Name: OLAYINKA GUSTAFSON Name: OPAL POWELL Insurance Providers Guarantor name: JASWANT HOLDEN Health Plan Information #: 2 [facility] Member Number: [id number] Policy Number: NA Group Number: NA Health Plan Information #: 1 Payer: MEDICARE PART B OUTPT Member Number: [id number] Policy Number: NA Group Number: NA
--- OUTSIDE RECORDS SUMMARY | 2024-07-26 16:11 | XMS_ITS | Continuity of Care Document ---
Author Organization [facility] Address [address] [place] [address]- Care Team Providers Care Buggy Driver Name Role Phone Cooper Adam MD Primary Care Physician Encounter [facility] [place] Date(s): 06/20/24 - 07/20/24 [facility] [address] [place] [address]- Encounter Type: Triage Allergies, Adverse Reactions, Alerts Substance Criticality Severity Reaction Reaction Severity Status amoxicillin upset stomach Acti ve penicillin Active MetFORMIN (Eqv-Glumetza) abdominal pain Active traMADol 1 Active morphine Active methocarbamol choking Active Nexium rash Active [...] Recorded tetanus/diphtheria/pertussis, acel(Tdap) 8 01/09/11 Given SARS-CoV-2(COVID-19)mRNA-LNP vac(deb032) 01/12/24 Recorded SARS-CoV-2(COVID-19)mRNA-LNP vac(uss781) 01/30/23 Recorded RSV vaccine preF3, recombinant 01/30/23 Recorded pneumococcal 20-valent conjugate vaccine 01/30/23 Recorded [id number] 12y+ bivalent booster vax 02/26/22 Given SARS-CoV-2 [...] (oldterm) 11 02/05/07 Give n 1Result Comment: [facility] [id number] 2Result Comment: [facility]:[id number] 3Result Comment: [01/21/2018] [facility]:[id number] 4Result Comment: [02/25/2013] [facility] 5Admin Note: vis given 12-05-08 FLUARIX Formula 6Admin Note: vis given 12-05-08 7Admin Note: VIM given 12-05-2008 8Admin Note: VIM 03/14/08 9Result Comment: [facility]:[id number] 10Result Comment: [06/26/2017] [facility]# [id number] 11Admin Note: VIM-SANOFI Medications acetaminophen/butalbital/caffeine 325 mg-50 [...] Refills, Maintenance, 02/16/20 9:44:00 AM EDT, Solution, [facility], [facility]; , 155, cm, 01/31/20 12:47:00 EDT, Height Start Date: 02/16/20 Status: Ordered Quantity: 360.0 Unit: mL Repeat number: 12 Ambien 10 mg oral tablet 1 tablet = 10 mg, By Mouth, Daily at bedtime, masspat checked DNF 06/13/2024, # 28 tablet, 0 Refills, Acute 06/13/25 11:25:00 AM EST, 06/13/24 12:27:00 PM EST, Tablet, [facility] #[id number], Partial fill upon patient request if the [...] AM EDT, 06/13/25 11:25:00 AM EST, Tablet, [facility]/pharmacy #[id number], Partial fill upon patient request if the prescription is for a schedule II opioid drug., 07/20/24, 156, cm, 06/29/24 10:48:00 EST, Height, 80.9, [...] PM EST, 05/02/24 8:14:00 AM EST, Tablet, [facility]/pharmacy #[id number], Partial fill upon patient [...] 1 Refills, Maintenance, 03/22/24 12:24:00 PM EST, [facility]/pharmacy #[id number], 156, cm, 03/16/24 12:58:00 [...] g Repeat number: 2 BioStim Pre-Wired Electrode [id number] BioStim Pre-Wired Electrode [id number], See Instructions, # 10 tablet, Refills 3, [...] 3 Refills, Maintenance, 12/09/23 9:02:00 AM EDT, [facility] #[id number], 156, cm, 12/09/23 8:36:00 EDT, Height, 80.9, kg, 04/29/23 15:01:00 EST, Dry Weight Start Date: 12/09/23 Status: Ordered Quantity: 90.0 Unit: tablet Repeat number: 4 Indication: Major depressive disorder, single episode, in full remission calcium-vitamin D 600 mg-400 intl units oral tablet 1 tablet, By Mouth, 2 times a day, # 180 tablet, 3 Refills, Maintenance, 04/22/24 12:34:00 PM EST, [facility]/pharmacy #[id number], 1 tablet By Mouth 2 times a day, 156, cm, 04/22/24 11:43:00 EST, Height, 80.9, kg, 04/29/23 15:01:00 EST, Dry Weight Start Date: 04/22/24 Status: Ordered Quantity: 180.0 Unit: tablet Repeat number: 4 cromolyn 4% ophthalmic solution See Instructions, INSTILL 1 DROP IN BOTH EYES 4 TIMES A DAY, # 10 mL, 3 Refills, Maintenance, 04/08/24 2:28:00 PM EST, [id number], 15, INSTILL 1 DROP IN BOTH EYES [...] capsule, 3 Refills, Maintenance, 05/19/24 9:45:00AM EST, [facility] #[id number], 156, cm, 05/13/24 12:52:00 EST, Height, 80.9, [...] 3 Refills, Maintenance, 12/23/23 8:34:00 AM EDT, [facility] #[id number], 156, cm, 12/10/23 14:18:00 EDT, Height, 80.9, kg, 04/29/23 15:01:00 EST, Dry Weight Start Date: 12/23/23 Status: Ordered Quantity: 42.5 Unit: g Repeat number: 1 Estradiol Patch 0.025 mg/24 hours weekly transdermal film, extended release 1 patch, Topically, Every week, # 12 patch, 4 Refills, Maintenance, 11/11/23 8:03:00 AM EDT, [facility] #[id number], 156, cm, 08/20/23 11:18:00 EDT, Height, 80.9, [...] 3 Refills, Maintenance, 12/09/23 9:07:00 AM EDT, [facility] #[id number], Partial fill upon patient request if the [...] 1 Refills, Maintenance, 06/17/24 10:45:00 PM EST, [facility] #[id number], 90, 1 tablet By Mouth Daily in [...] 1:15:00 PM EDT, Route to Pharmacy Electronically, [facility] #[id number], 156, cm, 06/29/24 10:48:00 EST, Height, 80.9, [...] AM EDT, 06/13/24 12:27:00 PM EST, Tablet, [facility] #[id number], Partial fill upon patient request if the [...] Refills, Maintenance, 07/14/25 9:36:00 AM EDT, Tablet, [facility]/pharmacy #[id number], Partial fill upon patient [...] Refills, Maintenance, 05/19/24 9:47:00 AM EST, Solution, [facility] #[id number], Partial fill upon patient request if the [...] 2 Refills, Maintenance, 06/23/24 1:13:00 PM EST, [facility] #[id number], Partial fill upon patient request if the prescription is for a schedule II opioid drug., 156, cm, 05/13/24 12:52:00 EST, Height, 80.9,kg, 04/29/23 15:01:00 EST, Dry Weight Start Date: 06/23/24 Status: Ordered Quantity: 4.0 Unit: each Repeat number: 3 nystatin topical [id number] u/gm powder 1 application, Topically, 2 times a day, under breasts, # 60 Gm, 5 Refills, Maintenance, 08/24/20 1:29:00 PM EDT, Powder, [facility]/pharmacy #[id number], 1 application Topically 2 [...] 14 Refills, Maintenance, 05/21/22 9:38:00 AM EST, [id number], 156, cm, 05/21/22 8:21:00 EST, Height, 78, kg, 04/01/22 13:29:00 EST, Dry Weight Start Date: 05/21/22 Status: Ordered Quantity: 10.0 Unit: tablet Repeat number: 1 oxyCODONE 10 mg oral tablet 1 tablet = 10 mg, By Mouth, Every 8 hours, Auto refill Masspat checked DNF until 07/14/2024, # 84 tablet, 0 Refills, Acute 08/19/24 9:34:00 AM EDT, 07/14/24 7:42:00 AM EDT, [facility]/pharmacy #[id number], Partial fill upon patient [...] 9:34:00 AM EDT, 06/13/24 12:27:00 PM EST, [facility] #[id number], Partial fill upon patient request if the [...] 4 Refills, Maintenance, 12/10/22 2:11:00 PM EDT, [facility] #[id number], Partial fill upon patient request if the [...] 1 Refills, Maintenance, 06/02/22 2:43:00 PM EST, [facility]/pharmacy #[id number], 156, cm, 05/21/22 8:21:00 [...] 1:21:00 PM EST, Route to Pharmacy Electronically, [facility]/pharmacy #[id number], Partial fill upon patient [...] 2 Refills, Maintenance, 03/31/24 12:51:00 PM EST, [facility]/pharmacy #[id number], 156, cm, 03/31/24 12:38:00 [...] 3:29:00 PM EST, Route to Pharmacy Electronically, [id number], 156, cm, 04/22/24 11:43:00 EST, Height, 80.9, [...] Team Personnel Name: Cooper Adam MD Position: [facility] Physician - Primary Care Member Role: PCP Address: [address] [place] [address] Telecom: Care Team Related Persons Name: OLAYINKA GUSTAFSON Name: OPAL POWELL Insurance Providers Guarantor name: JASWANT HOLDEN Health Plan Information #: 1 Payer: MEDICARE PART B OUTPT Member Number: NA Policy Number: NA Group Number: NA Health Plan Information #: 2 Payer: [place] Member Number: NA Policy Number: NA Group Number: NA
--- OUTSIDE RECORDS SUMMARY | 2024-07-26 16:12 | XMS_ITS | Data Portability ---
Author Organization [facility], [facility] Address [address] [place] [address] Care Team Providers Care Coil Assembler Name Role Phone HEATHER ECHEVERRIA Primary Care Provider Unavailabl e Assessment Encounter Date Assessment Date Assessment LastModified by Organization Details LastModified Time 02/15/2019 02/15/2019 I spent a total of 45 minutes with the patient, over half spent in discussion of medication reconcilation , side effects, and treatment. [email or web address] Not available 02/15/2019 12:14:11 Plan of Treatment Reminders Order Date Submit Date Provider Last Modified By Organization Details Last Modified Time Details Appointments None recorded. Lab CBC 2018 [facility], [address] [place] [address], [address], 9 08:43:40 CMP, serum or plasma 2018 019 [facility], [address] [place] [address], [address], 9 11:13:50 hepatitis C virus Ab, serum 2018 019 [facility], [address] [place] [address], [address], 9 11:16:21 microalbum in, urine 2018 019 [facility], [address] [place] [address], [address], 9 10:20:51 lipid panel, serum 2018 019 [facility], [address] [place] [address], [address], 9 09:55:17 CMP, serum or plasma 2018 019 [facility], [address] [facility] [place], [place], [address], 9 09:55:16 Referral None recorded. Procedures None recorded. Surgeries None recorded. Imaging XR, abdomen 2018 [facility] (Imaging), [address], [place], [address], 9 16:19:56 Medication Orders zolpidem 10 mg tablet 2018 019 [id number], [address] [facility] , [place], [address], 9 08:33:51 tizanidine 4 mg tablet 2018 019 [email or web address] [id number], [address], [place], [address], 9 10:25:29 Systane Balance 0.6 % eye drops 2016 017 [id number], [address] [place], [place], [id number], 7 15:33:43 Patient TargetsNo targets recorded. Patient Instructions Encounter Date Encounter Id Patient Instructions Last Modified By Organization Details Last Modified Time 09/18/2016 [id number] Glasses Rx was given. Discussed dry eye artificial tears as needed. Discussed to keep BG under control for healthy eyes. [email or web address] Not available 09/18/2016 15:38:15 02/15/2019 [id number] CCM: The provide r and patient discussed the Chronic Care Management program, including the services provided, and any fees associated with them. Not available 02/15/2019 10:37:10 03/08/2019 [id number] CCM: The provide r and patient discussed the Chronic Care Management program, including the services provided, and any fees associated with them. [email or web address] Not available 03/08/2019 10:34:57 Reason for Referral None Reported. Results Created Date Observation Date Name Description Value Unit Range Abnormal Flag Note LastModifiedBy Organization Detail LastModifiedTime 05/18/1905/19/2018 gluco se, QN [mass /volu me], serum or plasm a glucose 117 mg/dL 70-100 high Not Available [address], [address], 05/19/2018 09:54:19 02/16/2002/15/2019 pocha 1c POC HA1C 5.9 4.2 - 6.5 Not Available [address], [address], 02/15/2019 11:08:40 02/16/2002/16/2019 CMP, serum or plasm a glucose 89 mg/dL 70-100 Not Available [address], [address], 02/16/2019 09:55:16 02/16/2002/16/2019 CMP, serum or plasm a BUN 24 mg/dL 7-18 high Not Available [address], [address], 02/16/2019 09:55:16 02/16/2002/16/2019 CMP, serum or plasm a creatinine 1.3 mg/dL 0.8-1. 3 Not Available [address], [address], 02/16/2019 09:55:16 02/16/2002/16/2019 CMP, serum or plasm a B/C 18.5 ratio Not Available [address], [address], 02/16/2019 09:55:16 02/16/2002/16/2019 CMP, serum or plasm a GFR -non 47.3 mL/mi n Recom akbar d GFR by the Natio nal Kidne y Found ation >60 mL/mi n/1.7 3m2 - Isabelle l <60 mL/mi n/1.7 3m2 - Chron ic Kidne y Disea se <15 mL/mi n/1.7 3m2 - Kidne y Failu re Not Available [address], [address], 02/16/2019 09:55:16 02/16/2002/16/2019 CMP, serum or plasm a GFR - if 54.4 mL/mi n For Afric an Ameri can patie nts: Resul ts Multi plied by 1.21 Not Available [address], [address], 02/16/2019 09:55:16 02/16/2002/16/2019 CMP, serum or plasm a sodium 139 mmol/ L 136-14 5 Not Available [address], [address], 02/16/2019 09:55:16 02/16/2002/16/2019 CMP, serum or plasm a potassium 4.5 mmol/ L 3.5-5. 1 Not Available [address], [address], 02/16/2019 09:55:16 02/16/2002/16/2019 CMP, serum or plasm a chloride 103 mmol/ L 96-107 Not Available [address], [address], 02/16/2019 09:55:16 02/16/2002/16/2019 CMP, serum or plasm a anion gap 13.2 5.0-15 .0 Not Available [address], [address], 02/16/2019 09:55:16 02/16/2002/16/2019 CMP, serum or plasm a CO2 23 mmol/ L 21-32 Not Available [address], [address], 02/16/2019 09:55:16 02/16/2002/16/2019 CMP, serum or plasm a calcium 9.4 mg/dL 8.5-10 .3 Not Available [address], [address], 02/16/2019 09:55:16 02/16/2002/16/2019 CMP, serum or plasm a total protein 8.2 g/dL 6.4-8. 2 Not Available [address], [address], 02/16/2019 09:55:16 02/16/2002/16/2019 CMP, serum or plasm a albumin 4.3 g/dL 3.4-5. 0 Not Available [address], [address], 02/16/2019 09:55:16 02/16/2002/16/2019 CMP, serum or plasm a globulin 3.9 g/dL Not Available [address], [address], 02/16/2019 09:55:16 02/16/2002/16/2019 CMP, serum or plasm a A/G 1.1 ratio 0.8-2. 0 Not Available [address], [address], 02/16/2019 09:55:16 02/16/2002/16/2019 CMP, serum or plasm a total bilirubin 0.30 mg/dL 0.00-1 .00 Not Available [address], [address], 02/16/2019 09:55:16 02/16/2002/16/2019 CMP, serum or plasm a AST 9 U/L 0-37 Not Available [address], [address], 02/16/2019 09:55:16 02/16/2002/16/2019 CMP, serum or plasm a ALT 23 U/L 6-63 Not Available [address], [address], 02/16/2019 09:55:16 02/16/2002/16/2019 CMP, serum or plasm a alk. phos. 91 U/L 50-136 Not Available [address], [address], 02/16/2019 09:55:16 02/16/20 19 02/16/2019 lipid panel , serum cholesterol 217 mg/dL <200 mg/dl Paulino able 200-2 39 mg/dl Borde rline High >240 mg/dl High Not Available [address], [address], 02/16/2019 09:55:17 02/16/20 19 02/16/2019 lipid panel , serum triglyceride s 254 mg/dL high <150 mg/dL Isabelle l 150-1 99 mg/dL Borde rline High 200-4 99 mg/dL High >500 mg/dL Very High Not Available [address], [address], 02/16/2019 09:55:17 02/16/20 19 02/16/2019 lipid panel , serum direct HDL 37 mg/dL <40 mg/dl - Major Risk for CHD >60 mg/dl - Negat brendan Risk for CHD Not Available [address], [address], 02/16/2019 09:55:17 02/16/2002/16/2019 LDL, direc t, serum direct LDL 134 mg/dL RISK CATEG ORY LDL GOAL _ CHD or CHD Risk Equiv alent s <100 mg/dl (10-y ear risk >20%) 2+ Risk Facto rs <130 mg/dl (10-y ear risk <= 20%) 0-1 Risk Facto r??? <160 mg/dl ??? Almos t all peopl e with 0-1 risk facto r have a 10 year risk <10%, thus 10 year risk asses ment in peopl e with 0-1 risk facto r is not neces helder. Not Available [address], [address], 02/16/2019 09:55:18 02/16/2002/16/2019 micro album in, urine microalbumin 39.5 mg/L 1.3-20 .0 high Not Available [address], [address], 02/16/2019 10:20:51 02/16/20 19 02/16/2019 micro album in, urine creatinine urine 99.4 mg/dL 30.0-1 25.0 Not Available [address], [address], 02/16/2019 10:20:51 02/16/20 19 02/16/2019 micro album in, urine microalb/cre at ratio 39.7 mg/g_ creat 0.0-29 .0 high Not Available [address], [address], 02/16/2019 10:20:51 02/16/20 19 02/16/2019 hepat itis C virus Ab, serum hepatitis C antibody NON-RE ACTIVE non-re active normal Not Available [employer] [facility] [address] [place] [address] B, [place], [address], 02/16/2019 11:16:20 02/16/2002/16/2019 hepat itis C virus Ab, serum signal to cut-off 0.02 <1.00 normal HCV antib aston was non-r eacti ve. There is no labor atory evide nce of HCV infec tion. In most cases , no furth er actio n is requi red. Howev er, if recen t HCV expos ure is suspe cted, a test for HCV RNA (test code 18870 ) is sugge sted. For addit ional infor bull n pleas e refer to http: //[facility] catnel n.que stdia gnost ics.c om/fa q/FAQ 22v1 (This link is being provi ded for infor bull nal/ susannah haywardo ses only. ) Not Available [employer] [facility] [address] [place], [place], [address], 02/16/2019 11:16:20 02/25/2002/24/2019 POC UA glu UA Negati ve Not Available [address], [address], 02/24/2019 08:41:41 02/25/2002/24/2019 POC UA clarity UA Turbid Not Available [address], [address], 02/24/2019 08:41:41 02/25/2002/24/2019 POC UA uro UA 1.0000 Not Available [address], [address], 02/24/2019 08:41:41 02/25/2002/24/2019 POC UA ket UA Negati ve Not Available [address], [address], 02/24/2019 08:41:41 02/25/2002/24/2019 POC UA pro UA Trace abnormal Not Available [address], [address], 02/24/2019 08:41:41 02/25/2002/24/2019 POC UA nit UA Negati ve Not Available [address], [address], 02/24/2019 08:41:41 02/25/2002/24/2019 POC UA paulie UA Negati ve Not Available [address], [address], 02/24/2019 08:41:41 02/25/2002/24/2019 POC UA pH UA 7.0000 Not Available [address], [address], 02/24/2019 08:41:41 02/25/2002/24/2019 POC UA SG UA 1.0200 Not Available [address], [address], 02/24/2019 08:41:41 02/25/2002/24/2019 POC UA color UA Other Not Available [address], [address], 02/24/2019 08:41:41 02/25/2002/24/2019 POC UA blo UA Negati ve Not Available [address], [address], 02/24/2019 08:41:41 02/25/2002/24/2019 POC UA kashif UA Small abnormal Not Available [address], [address], 02/24/2019 08:41:41 02/29/2002/28/2019 POC UA glu UA Negati ve Not Available [address], [address], 02/28/2019 10:32:13 02/29/2002/28/2019 POC UA clarity UA Clear Not Available [address], [address], 02/28/2019 10:32:13 02/29/20 19 02/28/2019 POC UA uro UA 0.2000 Not Available [address], [address], 02/28/2019 10:32:13 02/29/2002/28/2019 POC UA ket UA Negati ve Not Available [address], [address], 02/28/2019 10:32:13 02/29/20 19 02/28/2019 POC UA pro UA Trace abnormal Not Available [address], [address], 02/28/2019 10:32:13 02/29/20 19 02/28/2019 POC UA nit UA Negati ve Not Available [address], [address], 02/28/2019 10:32:13 02/29/2002/28/2019 POC UA paulie UA Negati ve Not Available [address], [address], 02/28/2019 10:32:13 02/29/2002/28/2019 POC UA pH UA 6.0000 Not Available [address], [address], 02/28/2019 10:32:13 02/29/20 19 02/28/2019 POC UA SG UA 1.0250 Not Available [address], [address], 02/28/2019 10:32:13 02/29/2002/28/2019 POC UA color UA Yellow Not Available [address], [address], 02/28/2019 10:32:13 02/29/2002/28/2019 POC UA blo UA Negati ve Not Available [address], [address], 02/28/2019 10:32:13 02/29/20 19 02/28/2019 POC UA kashif UA 1+ abnormal Not Available [address], [address], 02/28/2019 10:32:13 02/29/2003/01/2019 CBC WBC 18.27 K/??L 3.98-1 0.04 critical high JOSI=V erifi ed by Cheli Mims shanae high WBC resul t richa Bowden at [facility] FP and CBC resul ts are avail able in the EMR at 0842, 03/01.s s. Not Available [address], [address], 03/01/2019 08:43:40 02/29/2003/01/2019 CBC RBC 3.71 M/??L 3.93-5 .22 low Not Available [address], [address], 03/01/2019 08:43:40 02/29/2003/01/2019 CBC HGB 12.3 g/dL 11.2-1 5.7 Not Available [address], [address], 03/01/2019 08:43:40 02/29/2003/01/2019 CBC HCT 39.6 % 34.1-4 4.9 Not Available [address], [address], 03/01/2019 08:43:40 02/29/2003/01/2019 CBC MCV 106.7 fL 79.4-9 4.8 high Not Available [address], [address], 03/01/2019 08:43:40 02/29/2003/01/2019 CBC MCH 33.2 pg 25.6-3 2.2 high Not Available [address], [address], 03/01/2019 08:43:40 02/29/2003/01/2019 CBC MCHC 31.1 g/dL 32.2-3 5.5 low Not Available [address], [address], 03/01/2019 08:43:40 02/29/2003/01/2019 CBC plt 447 K/??L 182-36 9 high Not Available [address], [address], 03/01/2019 08:43:40 02/29/2003/01/2019 CBC MPV 11.2 fL 9.4-12 .3 Not Available [address], [address], 03/01/2019 08:43:40 02/29/2003/01/2019 CBC neut% 68.8 % 34.0-7 1.1 Not Available [address], [address], 03/01/2019 08:43:40 02/29/2003/01/2019 CBC neut# 12.57 1.56-6 .13 high Not Available [address], [address], 03/01/2019 08:43:40 02/29/2003/01/2019 CBC lymph % 21.3 % 19.3-5 1.7 Not Available [address], [address], 03/01/2019 08:43:40 02/29/2003/01/2019 CBC lymph # 3.89 K/??L 1.18-3 .74 high Not Available [address], [address], 03/01/2019 08:43:40 02/29/2003/01/2019 CBC mono% 5.7 % 4.7-12 .5 Not Available [address], [address], 03/01/2019 08:43:40 02/29/2003/01/2019 CBC mono# 1.05 0.24-0 .56 high Not Available [address], [address], 03/01/2019 08:43:40 02/29/2003/01/2019 CBC eo% 3.0 % 0.7-5. 8 Not Available [address], [address], 03/01/2019 08:43:40 02/29/2003/01/2019 CBC eo# 0.54 0.04-0 .36 high Not Available [address], [address], 03/01/2019 08:43:40 02/29/2003/01/2019 CBC baso% 0.7 % 0.1-1. 2 Not Available [address], [address], 03/01/2019 08:43:40 02/29/2003/01/2019 CBC baso# 0.12 0.00-0 .08 high Not Available [address], [address], 03/01/2019 08:43:40 02/29/2003/01/2019 CBC RDW-CV 12.6 % 11.7-1 4.4 Not Available [address], [address], 03/01/2019 08:43:40 02/29/2003/01/2019 CBC Ig% 0.500 % 0.000- 0.429 high Ig % >0.5 Indic ates possi ble Left Shift Not Available [address], [address], 03/01/2019 08:43:40 02/29/2003/01/2019 CBC Ig# 0.100 0.000- 0.031 high Not Available [address], [address], 03/01/2019 08:43:40 02/29/2003/01/2019 CBC NRBC% 0.0 % 0.0-0. 2 Not Available [address], [address], 03/01/2019 08:43:40 02/29/2003/01/2019 CBC NRBC# 0.000 0.000- 0.012 Not Available [address], [address], 03/01/2019 08:43:40 02/29/2003/01/2019 CMP, serum or plasm a glucose 92 mg/dL 70-100 Not Available [address], [address], 03/01/2019 11:13:50 02/29/20 19 03/01/2019 CMP, serum or plasm a BUN 21 mg/dL 7-18 high Not Available [address], [address], 03/01/2019 11:13:50 02/29/20 19 03/01/2019 CMP, serum or plasm a creatinine 1.3 mg/dL 0.8-1. 3 Not Available [address], [address], 03/01/2019 11:13:50 02/29/2003/01/2019 CMP, serum or plasm a B/C 16.2 ratio Not Available [address], [address], 03/01/2019 11:13:50 02/29/2003/01/2019 CMP, serum or plasm a GFR -non 47.3 mL/mi n Recom akbar d GFR by the Natio nal Kidne y Found ation >60 mL/mi n/1.7 3m2 - Isabelle l <60 mL/mi n/1.7 3m2 - Chron ic Kidne y Disea se <15 mL/mi n/1.7 3m2 - Kidne y Failu re Not Available [address], [address], 03/01/2019 11:13:50 02/29/2003/01/2019 CMP, serum or plasm a GFR - if 54.4 mL/mi n For Afric an Ameri can patie nts: Resul ts Multi plied by 1.21 Not Available [address], [address], 03/01/2019 11:13:50 02/29/2003/01/2019 CMP, serum or plasm a sodium 138 mmol/ L 136-14 5 Not Available [address], [address], 03/01/2019 11:13:50 02/29/2003/01/2019 CMP, serum or plasm a potassium 4.4 mmol/ L 3.5-5. 1 Not Available [address], [address], 03/01/2019 11:13:50 02/29/2003/01/2019 CMP, serum or plasm a chloride 100 mmol/ L 96-107 Not Available [address], [address], 03/01/2019 11:13:50 02/29/2003/01/2019 CMP, serum or plasm a anion gap 12.8 5.0-15 .0 Not Available [address], [address], 03/01/2019 11:13:50 02/29/2003/01/2019 CMP, serum or plasm a CO2 25 mmol/ L 21-32 Not Available [address], [address], 03/01/2019 11:13:50 02/29/2003/01/2019 CMP, serum or plasm a calcium 9.7 mg/dL 8.5-10 .3 Not Available [address], [address], 03/01/2019 11:13:50 02/29/2003/01/2019 CMP, serum or plasm a total protein 8.4 g/dL 6.4-8. 2 high Not Available [address], [address], 03/01/2019 11:13:50 02/29/2003/01/2019 CMP, serum or plasm a albumin 4.4 g/dL 3.4-5. 0 Not Available [address], [address], 03/01/2019 11:13:50 02/29/2003/01/2019 CMP, serum or plasm a globulin 4.0 g/dL Not Available [address], [address], 03/01/2019 11:13:50 02/29/20 19 03/01/2019 CMP, serum or plasm a A/G 1.1 ratio 0.8-2. 0 Not Available [address], [address], 03/01/2019 11:13:50 02/29/2003/01/2019 CMP, serum or plasm a total bilirubin 0.20 mg/dL 0.00-1 .00 Not Available [address], [address], 03/01/2019 11:13:50 02/29/2003/01/2019 CMP, serum or plasm a AST 13 U/L 0-37 Not Available [address], [address], 03/01/2019 11:13:50 02/29/2003/01/2019 CMP, serum or plasm a ALT 33 U/L 6-63 Not Available [address], [address], 03/01/2019 11:13:50 02/29/2003/01/2019 CMP, serum or plasm a alk. phos. 92 U/L 50-136 Not Available [address], [address], 03/01/2019 11:13:50 02/16/20 19 12/06/2018 MAMMO , scree brendan, tomos ynthe sis, bilat eral No observ ation record ed. BARCODE Not Available 2018 11:54:13 02/16/20 19 12/06/2018 bone densi ty No observ ation record ed. BARCODE Not Available 2018 12:02:19 02/16/20 19 12/01/2018 upper endos copy proce dure (EGD) (PROC ) No observ ation record ed. BARCODE Not Available 2018 12:14:16 02/29/20 19 02/28/2019 XR, abdom en OBSERV ATION: HISTOR Y: Left lower quadra nt pain since 1 a.m. TEQHNI QUE: Supine AP views abdome n. COMPAR AMARJIT: None. FINDIN GS: No radiop aque renal calcul i. A few round vascul ar calcif icatio ns are seen in the pelvis . Bowel gas patter n is normal . Mild to modera te amount of coloni c stool. Suture line seen in the centra l aspect of the pelvis , presum ably relate d to prior bowel surger y. Mild levoco nvex scolio tic curvat ure of the lumbar spine. IMPRES TERE: Bowel gas patter n within normal limits . No radiop aque renal calcul i. POS-VM G Electr onical ly signed Christian Oneill allegra: Gretchen Barbour [address] (Imaging) [address], [place], [address], 03/14/2019 09:09:13 02/24/20 20 02/24/2020 XR, chest OBSERV ATION: CLINIC AL HISTOR Y: Dyspne a on exerti on. Worsen ing shortn ess of breath . Asthma . TECHNI QUE: Fronta l view and latera l view of the chest obtain ed. COMPAR AMARJIT: None. FINDIN GS: The heart is normal in size and config uratio n. There is no hilar or medias tinal enlarg ement. There is no focal lung consol idatio n or infilt rate. The bony thorax is intact . IMPRES TERE: No acute diseas e. Electr onical ly signed Christian alexandra Physic allegra: Akanksha Good ms [email or web address] [facility] (Imaging) [address], [place], [address], 02/24/2020 15:00:00 10/11/19 23 10/10/2022 XR, hip No observ ation record ed. [email or web address] [facility] [address] [facility] [place], [address], 10/13/2022 07:21:41 Result Notes None recorded. 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 repeat in 2020 Heahter Echeverria, ENID [address] [place] [address], [address] , [facility] 9 08:36:22 Gastroes ophageal reflux disease without esophagi tis 851731440 Active 2018 ENID Siddiqui [address] [place] [address], [address] , [facility] 9 09:18:10 Prediabe hardeep 601655558 Active 2018 ENID Siddiqui [address] [place] [address], [address] , [facility] 9 09:21:21 Type 2 diabetes mellitus without complica tion 916198465 Completed 200802/24/2019 ENID Siddiqui [address] [place] [address], [address] , [facility] 9 09:21:14 Low back pain 238989177 Active 2003 Not Available [facility] 3 03:11:03 Neck pain 52923528 Completed 200003/16/2013 Not Available [facility] 3 02:00:35 Presbyop ia 67687303 Active 2008 Not Available [facility] 3 03:11:03 Migraine without aura 97327604 Active 2003 Not Available [facility] 3 03:11:03 Problem Notes None recorded. Procedures Surgical History Date Name Laterality Status Provider Name and Address Organization Details Recorded Time 12/30/19 20 Refraction cancelled Duyen Duarte [facility] 12/29/2019 14:39:32 04/07/20 19 Refraction cancelled Fred Camarena [facility] 04/07/2019 11:29:06 03/08/20 19 Transitional care completed CHARLIE Antoine [address] [place], [address], [facility] 03/08/2019 10:55:42 02/29/20 19 POC Urinalysis Testing completed Markie Hatch [facility] 02/28/2019 10:25:41 02/25/20 19 POC Urinalysis Testing completed Malathi Deleon [facility] 02/24/2019 08:32:33 02/16/20 19 POC HA1C completed Stephanie Persaud [facility] 02/15/2019 10:57:25 09/19/19 17 Refraction completed Paco Jamilluis [facility] 09/18/2016 14:54:56 Unlisted px gabrielle's dvrtclm completed Sasha Medrano NP [address] [place], [address], [facility] 02/28/2019 10:49:18 Imaging Results Imaging Date Name Status LastModified by Organiz ation Details LastModified Time 12/06/2018 MAMMO, screening, tomosynthesis, bilateral completed BARCODE Information not available 02/15/2019 11:54:13 12/06/2018 bone density completed BARCODE Information not available 02/15/2019 12:02:19 12/01/2018 upper endoscopy procedure (EGD) (PROC) completed BARCODE Information not available 02/15/2019 12:14:16 02/28/2019 XR, abdomen completed [email or web address] [facility] (Imaging) [address] [place], [address], 03/14/2019 09:09:13 02/24/2020 XR, chest completed [email or web address] [facility] (Imaging) [address] [place], [address], 02/24/2020 15:00:00 10/10/2022 XR, hip completed [email or web address] [facility] [address] [place], [address], 10/13/2022 07:21:41 Procedure Notes None recorded. Medical Equipment None Reported. Allergies Allergen ID Allergen Name Allergen Category Reaction Reaction Severity Criticality Documentation Date Start Date Code Code System Note Provider Name and Address Organization Details Recorded Time 19720504 Nexium medicatio n Not available Not available Not available 09/18/2016 56902 9 [facility] 7 14:32:04 19720505 Product containin g penicilli n (product) medicatio n Not available Not available Not available 09/18/2016 38844 8001 SNOMED Paco [facility] 7 14:32:11 Prevacid medicatio n Not available Not available Not available 09/18/2016 94191 RxNorm Paco [facility] 7 14:32:19 229505 gabapenti n medicatio n abdominal pain Not available Not available 02/24/[address] [facility] 9 08:05:44 Medications Name Sig Start Date Stop Date Status Note LastModified by Organization Details LastModified Time Prescriptio n - Clarificati on 02/24 completed Not Available Not Available Not Available cyclobenzap rine 10 mg tablet 02/15 completed Not Available Not Available Not Available methocarbam ol 500 mg tablet TK 1 T PO BID PRN FOR MUSCLE SPASMS 02/15 completed Not Available Not Available Not Available butalbital- acetaminoph en-caffeine 50 mg-325 mg-40 mg capsule TK 1 C PO TID PRF DAVID 12/01 completed Not Available Not Available Not Available clonidine HCl 0.1 mg tablet TAKE 1 TABLET BY MOUTH UP TO 4 TIMES A DAY NEEDED FOR HEADACHES 09/18 completed Not Available Not Available Not Available prednisone 10 mg tablet TAKE 1 TABLET BY MOUTH DAILY FOR 10 DAYS active Not Available Not Available No t Available gabapentin 600 mg tablet TAKE 2 AND 1/2 TABLETS BY MOUTH AT BEDTIME FOR 30 DAYS 02/15 completed Not Available Not Available Not Available atorvastati n 20 mg tablet TAKE 1 TABLET BY MOUTH EVERY DAY active Not Available Not Available No t Available tizanidine 2 mg tablet TAKE 1 TABLET BY MOUTH EVERY 8 HOURS NEEDED FOR MUSCLE SPASMS active Not Available Not Available No t Available albuterol sulfate 2.5 mg/3 mL (0.083 %) solution for nebulizatio n INHALE 1 VIAL VIA NEBULIZER EVERY 6 HOURS FOR 30 DAYS active Not Available Not Available No t Available verapamil 40 mg tablet 12/01 completed Not Available Not Available Not Available Lidocaine Viscous 2 % mucosal solution 12/01 completed Not Available Not Available Not Available tizanidine 4 mg tablet TAKE 1 TABLET BY MOUTH EVERY 8 HOURS active Not Available Not Available No t Available fluconazole 150 mg tablet TAKE 1 TABLET BY MOUTH EVERY 72 HOURS FOR 3 DOSES active Not Available Not Available No t Available valacyclovi r 1 gram tablet TAKE 1 TABLET BY MOUTH 3 TIMES A DAY FOR 7 DAYS active Not Available Not Available No t Available ranitidine 300 mg tablet 02/15 completed Not Available Not Available Not Available sumatriptan 100 mg tablet TAKE 1 TABLET BY MOUTH EVERY 2 HOURS NEEDED *MAX 2 TABS/24 HOURS 4 TABS/WEEK * active Not Available Not Available No t Available hydrocodone 5 mg-acetamin ophen 325 mg tablet TAKE 1 TABLET BY MOUTH EVERY 8 HOURS NEEDED active Not Available Not Available No t Available ondansetron HCl 8 mg tablet TAKE 1 TABLET BY MOUTH EVERY 8 HOURS NEEDED FOR NAUSEA/VO MITING active Not Available Not Available No t Available meloxicam 15 mg tablet 1 tablet daily active Not Available Not Available No t Available sucralfate 1 gram tablet TAKE 1 TABLET BY MOUTH 4 TIMES A DAY active Not Available Not Available No t Available promethazin e 12.5 mg tablet TAKE 1 TABLET BY MOUTH EVERY 4 HOURS NEEDED FOR NAUSEA OR VOMITING active Not Available Not Available No t Available FreeStyle Lancets 28 gauge TEST THREE TIMES DAILY active Not Available Not Available No t Available ondansetron HCl 4 mg tablet TAKE 1 TABLET BY MOUTH EVERY 8 HOURS active Not Available Not Available No t Available prednisone 20 mg tablet active Not Available Not Available Not Available prednisone 5 mg tablet 12/01 completed Not Available Not Available Not Available cromolyn 4 % eye drops DROP 1 DROP INTO BOTH EYES 4 TIMES A DAY FOR 30 DAYS active Not Available Not Available No t Available topiramate 25 mg tablet TAKE 1 TABLET BY MOUTH 2 TIMES A DAY 09/18 completed Not Available Not Available Not Available hydralazine 25 mg tablet TAKE 1 TABLET BY MOUTH DAILY active Not Available Not Available No t Available metronidazo le 500 mg tablet TAKE 1 TABLET BY MOUTH 3 TIMES A DAY active Not Available Not Available No t Available cimetidine 800 mg tablet TK 1 T PO BID 12/01 completed Not Available Not Available Not Available prochlorper azine maleate 10 mg tablet TK 1 T PO QID 02/15 completed Not Available Not Available Not Available doxepin 10 mg capsule 02/15 completed Not Available Not Available Not Available ciprofloxac in 500 mg tablet TAKE 1 TABLET BY MOUTH EVERY 12 HOURS FOR 7 DAYS active Not Available Not Available No t Available sulfamethox azole 800 mg-trimetho prim 160 mg tablet TAKE 1 TABLET BY MOUTH 2 TIMES A DAY FOR 10 DAYS, DRINK PLENTY OF FLUIDS 12/01 completed Not Available Not Available Not Available peg-electro lyte solution 420 gram oral solution USE DIRECTED active Not Available Not Available No t Available omeprazole 40 mg capsule,del ayed release Take one capsule by mouth once daily active Not Available Not Available No t Available Wellbutrin SR 100 mg tablet, 12 hr sustained-r elease Take 1 tablet every day by oral route. 02/24 completed Pt on 150 mg daily . Not Available Not Available Not Available tramadol 50 mg tablet TAKE 1 TABLET BY MOUTH EVERY 6 HOURS NEEDED FOR PAIN (PAIN SCALE 4 6) active Not Available Not Available No t Available butalbital- acetaminoph en-caffeine 50 mg-325 mg-40 mg tablet TAKE 1 TABLET BY MOUTH EVERY 6 HOURS FOR 28 DAYS NEEDED FOR HEADACHES . active Not Available Not Available No t Available glimepiride 2 mg tablet TAKE 2 TABLETS IN MORNING, 1 IN THE AFTERNOON AND 1 AT NIGHT. active Not Available Not Available No t Available ondansetron 8 mg disintegrat ing tablet TAKE 1 TABLET BY MOUTH EVERY 8 HOURS NEEDED FOR NAUSEA AND VOMITING active Not Available Not Available No t Available glimepiride 1 mg tablet active Not Available Not Available Not Available oxycodone 15 mg tablet TAKE 1 TABLET BY MOUTH EVERY 4 HOURS DX: 722.52 02/15 completed Not Available Not Available Not Available ketorolac 0.5 % eye drops INSTILL 1 DROP IN RIGHT EYE TWICE A DAY FOR 3 WEEKS FOLLOWING SURGERY ON 05/28/2020 active Not Available Not Available No t Available oxycodone-a cetaminophe n 5 mg-325 mg tablet TAKE 1 TABLET BY MOUTH EVERY 8 HOURS NEEDED FOR PAIN active Not Available Not Available No t Available bupropion HCl 100 mg tablet TK 1 T PO D IN THE MORNING 02/15 completed Not Available Not Available Not Available citalopram 20 mg tablet TK 1 T PO D 02/15 completed Not Available Not Available Not Available lorazepam 0.5 mg tablet TK 1 T PO QID PRF ANXIETY active Not Available Not Available No t Available triamcinolo ne acetonide 0.025 % topical cream APPLY TO AFFECTED AREA TWICE A DAY FOR 14 DAYS NEEDED FOR ITCH active Not Available Not Available No t Available tamsulosin 0.4 mg capsule TAKE 1 CAPSULE BY MOUTH AT BEDTIME FOR 14 DAYS active Not Available Not Available No t Available phenazopyri dine 100 mg tablet TAKE 1 TABLET BY MOUTH 3 TIMES A DAY FOR 4 DAYS NEEDED FOR SPASM active Not Available Not Available No t Available baclofen 10 mg tablet TAKE 1 TABLET BY MOUTH 3 TIMES A DAY NEEDED FOR MUSCLE SPASM 12/01 completed Not Available Not Available Not Available benzonatate 100 mg capsule TAKE ONE CAPSULE BY MOUTH 3 TIMES A DAY FOR 7 DAYS 02/15 completed Not Available Not Available Not Available glipizide ER 2.5 mg tablet, extended release 24 hr TAKE 1 TABLET BY MOUTH EVERY DAY active Not Available Not Available No t Available pantoprazol e 40 mg tablet,donta yed release TAKE 1 TABLET BY MOUTH TWICE A DAY active Not Available Not Available No t Available ferrous sulfate 325 mg (65 mg iron) tablet TAKE 1 TABLET BY MOUTH EVERY DAY active Not Available Not Available No t Available cephalexin 250 mg/5 mL oral suspension TK 5 ML PO QID FOR 7 DAYS SWISH AND SPIT 12/01 completed Not Available Not Available Not Available buspirone 10 mg tablet 02/15 completed Not Available Not Available Not Available lisinopril 10 mg tablet TAKE 1 TABLET BY MOUTH EVERY DAY active Not Available Not Available No t Available glimepiride 4 mg tablet TAKE 1 TABLET BY MOUTH EVERY MORNING AND 1/2 TABLET EVERY EVENING AND AT BEDTIME active Not Available Not Available No t Available lidocaine 5 % topical patch APPLY 1 PATCH EVERY DAY, LEAVE ON FOR 12 HOURS THEN OFF FOR 12 HOURS 12/01 completed Not Available Not Available Not Available indomethaci n 25 mg capsule 10/22 /2019 completed Not Available Not Available Not Available Aller-Chlor 4 mg tablet TK 1 T PO QHS 02/24 completed Not Available Not Available Not Available butalbital- aspirin-caf feine 50 mg-325 mg-40 mg capsule TAKE 1 CAPSULE BY MOUTH EVERY 6 HOURS NEEDED active Not Available Not Available No t Available zafirlukast 20 mg tablet TAKE 1 TABLET BY MOUTH TWICE A DAY active Not Available Not Available No t Available docusate sodium 100 mg capsule TAKE 1 CAPSULE BY MOUTH TWICE A DAY active Not Available Not Available No t Available betamethaso ne, augmented 0.05 % topical ointment APPLY TOPICALLY DAILY active Not Available Not Available No t Available gabapentin 300 mg capsule TAKE ONE CAPSULE BY MOUTH 3 TIMES A DAY 02/15 completed Not Available Not Available Not Available omeprazole 20 mg capsule,del ayed release TAKE 2 CAPSULES BY MOUTH 2 TIMES PER DAY active Not Available Not Available No t Available magnesium citrate oral solution DRINK PO DIRECTED FOR 1 DAY 12/01 completed Not Available Not Available Not Available montelukast 10 mg tablet TAKE 1 TABLET BY MOUTH EVERY DAY active Not Available Not Available No t Available hydroxyzine HCl 25 mg tablet TAKE 1 TABLET BY MOUTH EVERY DAY FOR ANXIETY active Not Available Not Available No t Available codeine 10 mg-guaifene sin 100 mg/5 mL oral liquid TAKE 5 ML (1 TEASPOONF UL) BY MOUTH EVERY 6 HOURS NEEDED FOR COUGH AND CONGESTIO N 12/01 completed Not Available Not Available Not Available bisacodyl 5 mg tablet,donta yed release TAKE 4 TABS BY MOUTH AT 6 PM DAY BEFORE COLONOSCO PY active Not Available Not Available No t Available lisinopril 5 mg tablet 02/15 completed Not Available Not Available Not Available zolpidem 5 mg tablet TAKE 1 TABLET BY MOUTH AT BEDTIME NEEDED *DO NOT TAKE EVERY NIGHT active Not Available Not Available No t Available gabapentin 100 mg capsule TAKE 2 CAPSULES BY MOUTH 3 TIMES A DAY FOR 30 DAYS NEED APPOINTME NT 02/15 completed Not Available Not Available Not Available nystatin 100,000 unit/gram topical powder APPLY UNDER BREASTS TWICE A DAY active Not Available Not Available No t Available ibuprofen 600 mg tablet TAKE 1 TABLET BY MOUTH EVERY 8 HOURS NEEDED FOR PAIN & FEVER active Not Available Not Available No t Available cefuroxime axetil 500 mg tablet TAKE 1 TABLET BY MOUTH TWICE A DAY active Not Available Not Available No t Available levofloxaci n 500 mg tablet TAKE 1 TABLET BY MOUTH EVERY DAY active Not Available Not Available No t Available levofloxaci n 750 mg tablet TAKE 1 TABLET BY MOUTH EVERY DAY active Not Available Not Available No t Available zolpidem 10 mg tablet TAKE 1 TABLET BY MOUTH AT BEDTIME NEEDED FOR INSOMNIA active Not Available Not Available No t Available ondansetron 4 mg disintegrat ing tablet TAKE 1 TABLET BY MOUTH EVERY 8 HOURS NEEDED FOR NAUSEA/VO MITING active Not Available Not Available No t Available fluticasone propionate 50 mcg/actuati on nasal spray,suspe nsion active Not Available Not Available Not Available clotrimazol e 1 % topical cream 03/08 completed Not Available Not Available Not Available lisinopril 2.5 mg tablet TAKE 1 TABLET BY MOUTH EVERY DAY active Not Available Not Available No t Available dicyclomine 10 mg capsule TAKE 1 CAPSULE BY MOUTH TWICE A DAY active Not Available Not Available No t Available naproxen 500 mg tablet Take 1 tablet twice a day by oral route. active Not Available Not Available No t Available Ventolin HFA 90 mcg/actuati on aerosol inhaler INHALE 2 PUFFS INTO THE LUNGS EVERY 4 HOURS NEEDED FOR WHEEZING OR SHORTNESS OF BREATH/DY SPNEA. active Not Available Not Available No t Available buspirone 15 mg tablet TAKE 1 TABLET BY MOUTH EVERY DAY active Not Available Not Available No t Available oxycodone 5 mg tablet TAKE 1 TABLET BY MOUTH EVERY 6 HOURS NEEDED FOR PAIN active Not Available Not Available No t Available levalbutero l 0.31 mg/3 mL solution for nebulizatio n PLEASE SEE ATTACHED FOR DETAILED DIRECTION S active Not Available Not Available No t Available Laxative (bisacodyl) 5 mg tablet TK 4 TABLETS PO WITH 240 ML OF WATER ONCE ON THE DAY BEFORE THE PROCEDURE 12/01 completed Not Available Not Available Not Available cyclobenzap rine 5 mg tablet TAKE 1 TABLET BY MOUTH TWICE A DAY 02/15 completed Not Available Not Available Not Available bupropion HCl XL 150 mg 24 hr tablet, extended release TAKE 1 TABLET BY MOUTH EVERY DAY active Not Available Not Available No t Available zonisamide 50 mg capsule Take one capsule by mouth three times per day active Not Available Not Available No t Available Spiriva with HandiHaler 18 mcg and inhalation capsules INHALE 1 CAPSULE VIA HANDIHALE R ONCE DAILY AT THE SAME TIME EVERY DAY active Not Available Not Available No t Available duloxetine 60 mg capsule,del ayed release 02/15 completed Not Available Not Available Not Available Asmanex Twisthaler 220 mcg/actuati on(60 doses) breath activated inhalr INHALE 1 PUFF TWICE A DAY 12/01 completed Not Available Not Available Not Available pregabalin 75 mg capsule 02/15 completed Not Available Not Available Not Available pregabalin 150 mg capsule TAKE 1 CAPSULE BY MOUTH EVERY DAY active Not Available Not Available No t Available Pulmicort Flexhaler 180 mcg/actuati on breath activated TAKE 1 PUFF BY MOUTH TWICE A DAY active Not Available Not Available No t Available Symbicort 160 mcg-4.5 mcg/actuati on HFA aerosol inhaler INHALE 2 PUFFS BY MOUTH 2 TIMES A DAY 12/01 completed Not Available Not Available Not Available Symbicort 80 mcg-4.5 mcg/actuati on HFA aerosol inhaler INHALE 2 PUFFS BY MOUTH TWICE A DAY FOR 30 DAYS active Not Available Not Available No t Available FreeStyle Lite Meter kit USE TO TEST BLOOD GLUCOSE LEVELS THREE TIMES DAILY active Not Available Not Available No t Available FreeStyle Lite Strips USE 1 STRIP TO TEST BLOOD GLUCOSE THREE TIMES DAILY active Not Available Not Available No t Available levocetiriz ine 5 mg tablet TAKE 1 TABLET BY MOUTH EVERY EVENING active Not Available Not Available No t Available zileuton ER 600 mg tablet,exte nded release 12hr mphase TAKE 2 TABLETS (1,200 MG TOTAL) BY MOUTH 2 (TWO) TIMES A DAY WITH MEALS. active Not Available Not Available No t Available oxycodone 10 mg tablet TK 1 T PO Q 3 H PRF BACK PAIN 02/15 completed Not Available Not Available Not Available Calcium with Vitamin D 600 mg-10 mcg (400 unit) tablet TAKE 1 TABLET BY MOUTH TWICE A DAY active Not Available Not Available No t Available GaviLyte-G 236 gram-22.74 gram-6.74 gram-5.86 gram oral solution 12/01 completed Not Available Not Available Not Available Botox 200 unit injection active Not Available Not Available No t Available OneTouch Delica Lancets 33 gauge TEST BLOOD SUGAR ONCE DAILY active Not Available Not Available No t Available Purelax 17 gram/dose oral powder PLEASE SEE ATTACHED FOR DETAILED DIRECTION S active Not Available Not Available No t Available Systane Balance 0.6 % eye drops INSTILL 1 DROP IN BOTH EYES TID active Not Available Not Available No t Available buprenorphi ne 5 mcg/hour weekly transdermal patch APPLY 1 PATCH TOPICALLY ONCE A WEEK FOR PAIN. CHANGE WEEKLY 03/08 completed Not Available Not Available Not Available buprenorphi ne 10 mcg/hour weekly transdermal patch APPLY 1 PATCH TO THE SKIN EVERY 7 DAYS active Not Available Not Available No t Available OneTouch Delica Lancets 30 gauge USE DIRECTED FOR 3 TIMES A DAY 02/24 completed Not Available Not Available Not Available Jardiance 10 mg tablet TAKE 1 TABLET BY MOUTH EVERY MORNING active Not Available Not Available No t Available Spiriva Respimat 2.5 mcg/actuati on solution for inhalation INHALE 2 PUFFS BY MOUTH INTO THE LUNGS DAILY active Not Available Not Available No t Available OneTouch Verio Meter USE DIRECTED 3 TIMES A DAY 02/24 completed Not Available Not Available Not Available Narcan 4 mg/actuatio n nasal spray active Not Available Not Available Not Available bupropion HCl 150 mg tablet,12 hr sustained-r elease(smok ing deterrent) Take 1 tablet every day by oral route. 02/15 completed Not Available Not Available Not Available Fluvirin [id number] (PF) 45 mcg(15 mcg x3)/0.5 mL intramuscul ar syringe ADM 0.5ML IM UTD 12/01 completed Not Available Not Available Not Available Shingrix (PF) 50 mcg/0.5 mL intramuscul ar suspension, kit active Not Available Not Available Not Available Emgality Pen 120 mg/mL subcutaneou s pen injector INJECT 1 PEN SUBCUTANE OUSLY ONCE MONTHLY MONTH 2 AND CONTINUE active Not Available Not Available No t Available Vitals Date Recorded Body weight Body mass index (BMI) Body height Heart rate Systolic blood pressure Diastolic blood pressure Provider Name and Address Organization Details Last Updated DateTime 9 39009.9 9 g 36.2 kg/m2 152.4 cm 76 /min 130 mm[Hg] 72 mm[Hg] Stephanie Persaud MA [facility] 9 10:50:47 Date Recorded Body height Body mass index (BMI) Body weight Heart rate Systolic blood pressure Diastolic blood pressure Provider Name and Address Organization Details Last Updated DateTime 9 152.4 cm 36.2 kg/m2 52535.9 9 g 76 /min 126 mm[Hg] 74 mm[Hg] Malathi Deleon [facility] 9 08:07:25 Date Recorded Body height Body mass index (BMI) Body weight Body temperature Heart rate Systolic blood pressure Diastolic blood pressure Provider Name and Address Organization Details Last Updated DateTime 9 152.4 cm 35.2 kg/m2 60864.6 3 g 98.9 [degF] 80 /min 112 mm[Hg] 70 mm[Hg] Markie Hatch [facility] 9 10:24:27 Date Recorded Body height Body mass index (BMI) Body weight Heart rate Systolic blood pressure Diastolic blood pressure Provider Name and Address Organization Details Last Updated DateTime 9 152.4 cm 35.2 kg/m2 98300.6 3 g 79 /min 118 mm[Hg] 80 mm[Hg] Yaz Otto [facility] 9 10:29:13 Social History Question Answer Notes LastModified by Organizat ion Details LastModified Time Tobacco Smoking Status Never Smoker 03/08/19 COURTNEY Otto [facility] 03/08/2019 10:10:19 What Is Your Level Of Alcohol Consumption? None 03/08/19 TG [email or web address] Information not available 03/08/2019 Do You Or Have You Ever Used E-cigarettes Or Vape? Never Used Electronic Cigarettes 03/08/19 COURTNEY [email or web address] Information not available 02/24/2019 Live Alone Or With Others? With Others Boyfriend Information not available 02/15/2019 CCM Consent Discussion 03/08/2019 [email or web address] Information not available 03/09/2019 What Was The Date Of Your Most Recent Tobacco Screening? 02/24/2019 03/08/19 TG Information not available 02/24/2019 How Many Children Do You Have? 3 Information not available 02/15/2019 Do You Or Have You Ever Used Smokeless Tobacco? Never Used Smokeless Tobacco 03/08/19 TG Information not available 02/24/2019 How Much Tobacco Do You Smoke? No 03/08/19 TG Information not available 02/24/2019 How Many Years Have You Smoked Tobacco? 0 Information not available 02/24/2019 Sex: Unknown Functional Status None recorded. Mental Status None recorded. Family History Nothing Reported Notes:Father: Passed from th roat/brain cancer Mother: HTN, DM 2 Brothers: Heart disease, HTN 3 daughters: One has a hernia, one has lupus Great grand child: lung cancer 7 years old Medical History No medical history recorded. Gynecological HistoryNo gynecological history recorded. Obstetrics History GPAL:G 0 P 0 0 0 0 Immunizations Vaccine Type Date Status Note Provider Nam e and Address Organization Details Recorded Time Influenza, split virus, quadrivalent, PF 9 completed Not Available [facility] 05/14/2019 02:34:11 Td (adult), 2 Lf tetanus toxoid, preservative free, adsorbed 9 completed Not Available [facility] 05/14/2019 02:34:18 pneumococcal polysaccharide PPV23 9 completed Not Available [facility] 05/14/2019 02:38:53 zoster recombinant 9 completed Malathi Deleon MA [facility] 02/24/2019 08:06:27 Past Encounters Encounter ID Performer Location Encounter Start Date Encounter Closed Date Diagnosis/Indication Diagnosis SNOMED-CT Code Diagnosis ICD10 Code Diagnosis Note [id number] Physical Therapy, [address] [address] 12/08/2000 15:00:00 05/17/2008 02:02:29 [id number] Physical Therapy, [address] [address] 12/31/2000 10:30:00 05/17/2008 02:02:29 [id number] [facility], OFFICE [address] [place] [address] 11/07/2003 09:04:59 11/07/2003 15:25:15 [id number] Optical, [address] [address] 05/11/2008 11:15:20 05/11/2008 17:48:41 [id number] Eye Care, [address] [address] 05/11/2008 10:22:50 05/11/2008 11:14:53 [id number] Paulette Mcqueen, OD Eye Care, [facility] [address] [place] [address] 09/18/2016 14:12:50 09/18/2016 15:40:27 Astigmatism 43818440 H52.223 Presbyopia 31614661 H52. 4 Type 2 lashae betes mellitus without complication 376273437 E11.9 Dry eyes 215212161 H04.1 29 [id number] [facility] Siddiqui FP, [facility], OFFICE [address] [place] [address] 02/15/2019 10:33:14 02/15/2019 11:38:48 Screening mammography 46703602 Z12.31 Patient states was done this year through [facility]- will obtain recordsFol low-up in 1-2 weeks and will order if needed for this year Screening for malignant neoplasm of colon 877081709 Z12.11 Pt states had 3 years ago - will obtain records to find f/u recommenda tions Screening for disorder 887032269 Z11.59 Check Hep C screen today. Type 2 lashae betes mellitus without complication 843213199 E11.9 Hgb A1c in office today 5.9, patient not on any medication sCheck BMP and microalbum in today and will follow-up with results Migraine without aura 56 563428 G43.009 Continue to follow with neurologyC ontinue botox injections , sumatripta n, fiorcet, zonisamide Active or passive immunization 902743271 Z23 Flu, pneumonia, tetanus vaccines given today. Spasm of back muscles 20 3318597 M62.830 Pt requesting refill tizanidine Insomnia 474563554 G47.0 0 Pt requesting refill At [facility] risk of polypharmacy 050577174 Z91.89 The patient is new to me from [facility], history of many different psych meds, back pain meds, sleep aidsNo longer on benzos or opiates but was weaned off by prior PCP due to breach in CSRP contractMe d rec done today, will reach out to Dr Sanches for suggestion s in medication s for anxiety/de pression.F ollow-up in 1-2 weeks and we will continue to monitor and assess all of patients medication s Generalize d anxiety disorder 12277554 F41.1 See major depressive disorder Major depr essive disorder 912490202 F32.9 Patient on wellbutrin twice daily, buspar 15 mg recently added but making her nauseousDi d not tolerate SSRIs in the past, states allergic reaction. Hx of being on Cymbalta for back pain but states taken off due to drug interactio ns.Will send a patient case to Dr Sanches/ps ychiatry to discuss anxiety/de pression medication s- difficult to decipher which medication s are helping her symptoms or not due to extensive polypharma cyOffered patient IBH consult today with Mayi Perez but patient is decliningW ill follow-up with patient in 1-2 weeks, advised continue current medication s pending Dr Sanches's recommenda tions Megaloblas tic anemia due to vitamin B>12< deficiency 68059984 D53.1 Per chart, patient follows with [facility]/onc for vitamin b12 deficiency and iron deficiency anemiaFoll ow-up in 1-2 weeks with patient to make sure she still continues with monthly B12 injections Benign ess ential hypertension 0853575 I10 Continue lisinopril 10 mg dailyBP at goal today <140/90Che ck labs today [id number] Heather Echeverria, [place] , [facility], OFFICE [address] [place] [address] 02/24/2019 07:54:07 02/24/2019 08:33:05 Dysuria 61521064 R30.9 Patient reports dysuria today with one episode of incontinen ce. No fevers/chi lls.U/a today negative. Follow-up in 1 week. Advised push fluids. Will also recheck kidney function again in 1 month. Major depr essive disorder 182778241 F32.9 Med rec completed today, patient taking Wellbutrin 150 mg XL daily only. No longer taking buspar or cymbalta, although per prior notes her mood did well on Cymbalta 60 mg BID.Declin es IB or psychiatri st at this time.State s mood still isn't quite stable.Duane l hold off any medication changes today, will f/u next week. Patient trying to wean off Ambien. Generalize d anxiety disorder 52169206 F41.1 See major depressive disorder At [facility] risk of polypharmacy [id number] Z91.89 Patient brought in all of her medication s today and were reconciled . Discussed with the patient that taking her tizanidine 4 times daily as well as her ambien 10 mg daily at night may be making her too drowsy. Discussed that there are several alternativ e treatment options for her insomnia and muscle spasms. Declining PT today for muscle spasms. Patient is agreeable to break her ambien pills in half and take only 5 mg nightly for one week and I will follow-up with her next week. The goal is to wean her off of the tizanidine and ambien completely . Hx of opioid and benzo dependence , with breach of CSRP contract per last PCP. Screening mammography 24 241100 Z12.31 Looks as if patient is due for a mammogram, last one in our charts is from 2017, but patient insists she already had done this year. Will check [facility] and f/u prn. Migraine without aura 56 692724 G43.009 Continue to follow with neurology ontinue botox injections , sumatripta n, zonisamide , zofran Spasm of back muscles 20 4250732 M62.830 Advised patient will no longer refill her tizanidine . Offered other options including PT at [facility], pt declines for now. Advised to continue to follow with Bibi Stanford through [facility].F/u 1 week. Insomnia [id number] G47.0 0 Discussed with patient the risk of nursing home ambien use. Currently taking 10 mg every night for sleep, states works well. Agreeable to try to take only 5 mg nightly (1/2 tablet) for the next week and will f/u next week.Advis ed that there are better alternativ e options to help with her sleep that we will continue to address. Megaloblas tic anemia due to vitamin B>12< deficiency [id number] D53.1 Continues to follow with [facility] in [facility] for monthly vitamin B12 injections . Benign ess ential hypertension 1706125 I10 Continue lisinopril 10 mg dailyBP at goal today <140/90Ele vated BUN and microalbum in from 01/2019, may have underlying kidney damage. Recheck in 1 month. Gastroesop hageal reflux disease without esophagitis [id number] K21.9 Stable on omeprazole 40 mg daily. Prediabetes [id number] R7 3.03 A1c 5.9, history of pre-diabet es.Discuss ed dietary changes, including increased water intake, fruits, veggies and decreasing sugary beverages, processed/ fatty foods, carbs (breads, pastas, rice).Disc ussed good exercise habits, including at least 30 minutes of vigorous exercise five times per week, as well as strength training twice per week. Also discussed limiting sitting time.Patie nt to work on these changes and we will recheck in 3 months. [id number] Chucho Martin MD , [facility], OFFICE [address] [place] [address] 02/28/2019 10:13:05 02/28/2019 10:45:23 Left lower quadrant pain [id number] R10.32 Acute sharp LLQ pain most likely GI etiology. Pt does not have ovaries. No signs of acute illness - afebrile, well appearing, no diarrhea vomiting or bleeding. No urinary symptoms, and urine dip normal. On exam LLQ dull to percussion and tender to light palpation. Check labs and x ray for further evaluation .Advised hydrate and eat mild diet - no fried or fatty foods, spicy foods, acidic foods, avoid dairr.If has severe pain, vomiting, blood, fever go to ER.Pt has GI appointmen t in 2 weeks, if worsening or not improving then call to see if she can obtain sooner appointmen t. [id number] CHARLIE Antoine , [facility], OFFICE [address] [place] [address] 03/08/2019 10:03:51 03/08/2019 12:59:05 Diverticulitis [id number] K57.92 Patient has a follow-up appointmen [facility] on [facility]. Pt reports she still have pain. Pt reports she was discharge with oxycodone for the pain and requests for refills. Provider informed Pt that this provider does not prescribe controlled substances . Prescribed naproxen and advised Pt to take it with meals. Looked into medical records there are no records of NSAID allergies for previous PCP. All questions were addressed. Pt understand s and agrees with treatment plan Health Concerns Section Related Observation LastModified by Organization Detai ls LastModified Time None Recorded Concern Status LastModified by Organization Details LastModified Time None Recorded Advance Directives Directive None Recorded Payers Encounter Date Sequence Insurance Name Policy Number Policy Solitario Covered Member ID Solitario Member ID Guarantor Name 09/18/2016 2 [place] Pati Calhoun [id number] Pati Rawls 09/18/2016 1 [place] [employer] Pati Calhoun [id number] Pati Rawls 02/15/2019 2 [place] Pati Calhoun [id number] Pati Rawls 02/15/2019 1 [place] [employer] Pati Calhoun [id number] Pati Rawls 02/24/2019 2 [place] Pati Calhoun [id number] Pati Rawls 02/24/2019 1 [place] [place] Pati Calhoun [id number] Pati Rawls 02/28/2019 2 [place] Pati Calhoun [id number] Pati Rawls 02/28/2019 1 [place] [place] Pati Calhoun [id number] Pati Rawls 03/08/2019 2 [place] Pati Calhoun [id number] Pati Rawls 03/08/2019 1 [place] Pati Calhoun [id number] Pati Rawls Notes Date Note Type Note Provider Name and Address Organization Details Recorded Time 09/18/2016 text/html Comprehensive Ey e ExamReported bypatient.Quality:4 year exam Location:bilateral Context:currently wears glasses Modifying factors:wears glasses for distance and near Associated Symptoms:no redness; no floaters; no dryness;itchingDiabetic Eye ExamReported bypatient.Quality:type II diabetes Severity:well controlled; not requiring insulin Context:no history of retinopathy; normal average blood sugar ; Pt does not get her A1C done with us. Associated Symptoms:normal vision; no changes on Amsler grid Paulette Mcqueen, OD [address] [facility], [place], [address], [facility] 09/18/2016 15:38:45 02/15/2019 text/html Pati is a 58 ye ar old female presenting today for a new patient visit and to discuss meds Has a history of anxiety, depression, PTSDUsed to see PCP [facility] [place] but states was unhappy with her care there and switched hereTaking Wellbutrin twice daily for anxiety/depression, states that when initially started worked really wellOver the last six months she has been feeling more anxious - a lot of family stress, mother is sickStarted on buspar per last PCP (15 mg) but patient states hasn't really helped with her symptoms and is making her nauseousStates that she's taken SSRIs i.e. Zoloft in the past, but made my throat swell Hx of chronic back pain, was on Cymbalta which did improve her mood, but states PCP d/c'ed because interfered with one of her meds -unsure which medHas been on gabapentin in the last for chronic low back pain but now on LyricaFollows with Bibi Stanford at [facility] - used to be on oxycodone for low back pain but they stopped rx'ing through PCP because failed contract-now on buprenorphine weekly patch, has an appt coming up this . She states she has a CSRP contract with them.Hx of failed CSRP contract for benzos/opioids with last PCP-positive amphetamines in urine toxPatient requesting more Ativan - states it helped in the past Hx Type 2 diabetesChecking sugars at home - fasting usually in the 180sNot taking any medication, states that last PCP stated could hold off on meds for nowPt states about six months ago she took her boyfriend's Metformin and her sugars were lower around the 110s Follows with neurologist Dr Armstrong for migraines, gets botox injections every few monthsAlso on sumatriptan, fiorcet, zonisamide Hx HTN, on Lisinopril 10 mg daily, checking home BPs and states sometimes high Takes zolpidem 5 mg for insomnia, hx of 10 mg per recordsPt requesting refill for 10 mg, the 5 mg dose is not working Hx of asthma - takes symbicort BID, spiriva once daily, ventolin prn and albuterol prn Asthma - symbicort BID, ventolin prn, albuterol prn, spiriva dailyNon-smokerUsing albuterol inhaler about 2-3 times/week ENID Siddiqui [address] [place] [address], [phone], [facility] 02/15/2019 12:14:25 02/24/2019 text/html Pati is a 58 ye ar old female presenting today for a medication reconciliationLast seen 02/15 with [employer] as a new patient. Had multiple medications and patient was not a great historian. Returned today with all of her medication pill bottles to review - in chart now. Appt in place at [facility] with Bibi Stanford for f/u neck injectionFollows with neurology Dr Armstrong for botox injections, migraine medications-zofran, sumatriptanTaking tizanidine four times a day for muscle spasms. States gets PT through [facility], no interest in trying here.Walks a lot. GERD stable on omeprazole. Eating only one meal per day, chicken, chilean fries. Lots of fruits. Only taking Wellbutrin 150 mg XL for mood. No longer taking buspar or cymbalta.Not seeing a therapist On lisinopril for BP, checking home BPs, state they're running normal Follows with heme/onc every month for vitamin B12 injections, next one in place for apr 13 Taking ambien 10 mg daily for sleep, states she's tried trazodone in the past without effect. Has been on ambien for years. Reports some mild dysuria today with an episode of incontinence over night. No fevers, chills. No blood in urine. No new back pain (just her usual chronic back pain). ENID Siddiqui [address] [place], [address], [facility] 02/24/2019 09:22:35 02/28/2019 text/html Patient here rep orting sharp pelvic pain. On L side.got this at 1am, since then very sharp pain and constantNo diarrhea, no constipation, last BM this morningno feversno bleedingno urinary symptomsHistory of hysterectomy, then had 1 ovary removed, then second was removed in 1991 due to cystsSexually active with boyfriend, no pain with sex.no abnormal vaginal discharge. had fried pork last night. not spicy.does not smoke.was passing a lot of gas yesterday. No gas today hx of diverticulitis, had part of colon removed, had colostomy bag for a few months. This was 7 years ago. Last colonscopy at [facility], was 3 years ago, was normal, 10 year screening follow up. Has appt with GI on March 14. Chucho Martin MD [address] [place] [address], [phone], [facility] 03/04/2019 14:47:35 03/08/2019 text/html Pt is a 58 yo fe male who presents today for diverticulitis follow-up. Pt went to [facility] on 03/01/19, Pt reports she was diagnosed with diverticulitis and was discharged on 03/04/19 with two antibiotics, flagyl and cefuroxime. Pt reports she has been doing well since discharge. Pt reports she can tolerate regular diet, passing gas daily and have normal daily bowel movements. Pt denies trying any new food/restaurant before these symptoms began, denies eating anything unusual, denies any nausea/vomiting, denies anyone else in the household with the same symptoms, denies any fever/chills, denies any abdominal cramps, denies any chest pain/discomfort/pressur e, denies any palpitations, and denies any dyspnea at rest/exertion CHARLIE Antoine [address] [place], [address], [facility] 03/08/2019 10:57:28 OBGyn Episode No OBEpisode recorded.
== END 2024-07-26 14:15 | disposition home or self-care (01) ==
LOC: HO.HUSH 13:38
PROVIDERS: PCP Family Medicine; Visit Provider Nurse Practitioner Family
DX: N28.1 Cyst of kidney, acquired (principal); N20.0 Calculus of kidney; N39.43 Post-void dribbling; Z13.9 Encounter for screening, unspecified
CPT/HCPCS: 99213

== ENCOUNTER → 2024-07-26 13:37 | Outpatient (BNVA) | payer MEDICARE, MEDICAID, SELFPAY | PROVIDERS: PCP Family Medicine; Visit Provider Nurse Practitioner Family | DX: N28.1 Cyst of kidney, acquired (principal); N20.0 Calculus of kidney; N39.43 Post-void dribbling | CPT/HCPCS: 81003; 99212 ==

== ENCOUNTER 2024-12-21 11:56 | Outpatient (REF) | payer MEDICARE, MEDICAID, SELFPAY ==
--- NOTE | ~2024-12-21 | XR_ITS ---
EXAMINATION: XR ABDOMEN KUB CLINICAL INDICATION: R10.30 - Lower abdominal pain, unspecified COMPARISON: Correlated to CT abdomen and pelvis dated August 08, 2023. TECHNIQUE: AP view of the abdomen. FINDINGS: Abundant stool throughout the nondilated large intestine. No air-fluid levels. No calcifications overlapping the kidney shadows. Liver shadow projects below the rib cage. S-shaped curvature of the thoracolumbar spine with a levoconvex curvature in the mid lumbar spine. Patient's large body habitus.. XR/XR KUB IMPRESSION: No intestinal obstruction pattern. Hepatomegaly. Multilevel spondylosis and scoliosis, thoracolumbar spine. Electronically signed by: Lito Marie MD 12/21/2024 12:29 PM EDT
--- OUTSIDE RECORDS SUMMARY | 2024-12-21 12:42 | XMS_ITS | Encounter Summary ---
Author Organization [facility] Address [address] [place] [address] [place] [address] Phone Care Team Providers Care Termite Renewal Inspector Name Role Phone Shiloh Gauthier MD Primary Care Provider Salvador Jenkins MD Unavailable [phone] Malika James MD Primary Care Provider [phone] Venancio Lomeli NP Primary Care Provider [phone] Cooper Adam MD Primary Care Provide r Faye Davey CNP Unavailable Encounter Details Date Type Department Care Team (Late st Contact Info) Description 06/13/2020 Procedure Pass [address] [place] [address] Social History Tobacco Use Types Packs/Day Years Used Date Smoking Tobacco: Never Smokeless Tobacco: Never Alcohol Use Standard Drinks/Week Comments Never 0 (1 standard drink = 0.6 oz pur e alcohol) Comments Unknown Sex and Gender Information Value Date Recorded Sex Assigned at Not on file Legal Sex Female 9:45 PM EDT Gender Identity Not on file Sexual Orientation Not on file documented as of this encounter Last Filed Vital Signs Vital Sign Reading Time Taken Comments Blood Pressure - - Pulse - - Temperature - - Respiratory Rate - - Oxygen Saturation - - Inhaled Oxygen Concentration - - Weight 88.5 kg (195 lb) 06/15/2020 4:30 PM EST Height 160 cm (5' 3 ) 06/15/2020 4:30 PM EST Body Mass Index 34.54 06/15/2020 4:30 PM EST documented in this encounter Plan of Treatment Upcoming Encounters Date Type Department Care Team (Late st Contact Info) Description 07/15/2024 Procedure Pass [facility] [address] [place] [address] 12/27/2024 2:20 PM EDT Infusion [facility] at [address] [address] 01/19/2025 11:45 AM EDT Office Visit [facility] [address] [place] [address] 3rd [facility], [address] [address] Rashi Garcia MD [address] [place] [address] 01/24/2025 2:20 PM EDT Infusion [facility] at [address] [address] 02/21/2025 1:00 PM EDT Infusion [facility] at [address] [address] 07/04/2026 1:45 PM EST Appointment [facility] [address] [place] [address] Julián Galvez MD [address] [place] [address], [address] [address] 07/18/2026 2:00 PM EDT Office Visit [facility] [address] [place] [address] [address] [facility], [address] [address] Julián Galvez MD [address] [place] [address] documented as of this encounter Visit Diagnoses Not on filedocumented in this encounter Care Teams Termite Renewal Inspector Relationship Specialty Start Date End Date Shiloh Gauthier MD [address] [place] [address] PCP - General Family Medicine 04/14/19 06/20/20 Malika James MD [address] [place] [address] [email or web address] PCP - General 06/21/20 12/03/20 Venancio Lomeli NP [address] [place] [address] PCP - General Family Medicine 12/04/20 02/19/21 Cooper Adam MD [address] [address] PCP - General Family Medicine 02/20/21 Salvador Jenkins MD [address] [place] [address] Primary Oncologist Medical Oncology 04/24/20 Faye Davey CNP [address] [place] [address] Nurse Practitioner Medical Oncology 02/27/21 documented as of this encounter Additional Source Comments The information contained in this document represents components of the legal health record. It is not the complete legal health record.[facility]
--- OUTSIDE RECORDS SUMMARY | 2024-12-21 12:42 | XMS_ITS | Encounter Summary ---
Author Organization [facility] Address [address] [place] [address] Phone Care Team Providers Care Health Practice Manager Name Role Phone Savlador Jenkins MD Unavailable [phone] Cooper Adam MD Primary Care Provide r Faye Davey WHARF LABORER Unavailable Encounter Details Date Type Department Care Team (Late st Contact Info) Description 11/01/2024 Telephone [facility] IP Oncology - Virtual Department [address] [place] [address] Marleny Cunningham, RN [address] [place] [address] [email or web address] Social History Tobacco Use Types Packs/Day Years Used Date Smoking Tobacco: Never Smokeless Tobacco: Never Alcohol Use Standard Drinks/Week Comments Never 0 (1 standard drink = 0.6 oz pur e alcohol) Education Answer Date Recorded Are you interested in more education? Not on maria e 08/22/2022 Are you concerned about learning? Not on file 08/22/2022 No 08/22/2022 No 08/22/2022 Digital Access Answer Date Recorded No 09/17/2022 No 09/17/2022 Reliable internet access at home? Not on file 09/17/2022 Device with a working camera? Not on file 05 / Comments Unknown Sex and Gender Information Value Date Recorded Sex Assigned at Not on file Legal Sex Female 9:45 PM EDT Gender Identity Not on file Sexual Orientation Not on file documented as of this encounter Plan of Treatment Upcoming Encounters Date Type Department Care Team (Late st Contact Info) Description 07/15/2024 Procedure Pass [facility] [address] [place] [address] 12/27/2024 2:20 PM EDT Infusion [facility] at [address] [address] 01/19/2025 11:45 AM EDT Office Visit [facility] [address] [place] [address] 3rd [facility], [address] [address] Rashi Garcia MD [address] [place] [address] 01/24/2025 2:20 PM EDT Infusion [facility] at [address] [address] 02/21/2025 1:00 PM EDT Infusion [facility] at [address] [address] 07/04/2026 1:45 PM EST Appointment [facility] [address] [place] [address] Julián Galvez MD [address] [place] [address], [address] [address] 07/18/2026 2:00 PM EDT Office Visit [facility] [address] [place] [address] [address] [facility], [address] [place] [address] Julián Galvez MD [address] [place] [address] documented as of this encounter Visit Diagnoses Not on filedocumented in this encounter Care Teams Health Practice Manager Relationship Specialty Start Date End Date Coopre Adam MD [address] [address] PCP - General Family Medicine 02/20/21 Salvador eJnkins MD [address] [place] [address] [email or web address] Primary Oncologist Medical Oncology 04/24/20 Faye Davey CNP [address] [place] [address] [email or web address] Nurse Practitioner Medical Oncology 02/27/21 documented as of this encounter Additional Source Comments The information contained in this document represents components of the legal health record. It is not the complete legal health record.[facility]
--- OUTSIDE RECORDS SUMMARY | 2024-12-21 12:42 | XMS_ITS | Encounter Summary ---
Author Organization [facility] Address [address] [place] [address] Phone Care Team Providers Care Substation Operator Transforming Name Role Phone Salvador Jenkins MD Unavailable [phone] Cooper Adam MD Primary Care Provide r Faye Davey INVENTORY CONTROL ASSISTANT Unavailable Encounter Details Date Type Department Care Team (Late st Contact Info) Description 02/20/2021 Procedure Pass [facility] [place] [place] [address] Social History Tobacco Use Types Packs/Day Years [...] Info) Description 07/15/2024 Procedure Pass [facility] [address] [place] [address] 12/27/2024 2:20 PM EDT Infusion [facility] [place] [address] [place] [address] 01/19/2025 11:45 AM EDT Office Visit [facility] [address] [place] [address] [address] [facility], [address] [place] [address] Rashi Garcia MD [address] [place] [address] 01/24/2025 2:20 PM EDT Infusion [facility] at [address] [address] 02/21/2025 1:00 PM EDT Infusion [facility] at [address] [address] 07/04/2026 1:45 PM EST Appointment [facility] [address] [place] [address] Julián Galvez MD [address] [place] [address] 07/18/2026 2:00 PM EDT Office Visit [facility] [address] [place] [address] [place] [address], [address] [address] Julián Galvez MD [address] [place] [address] documented as of this encounter Visit Diagnoses Not on filedocumented in this encounter Care Teams Substation Operator Transforming Relationship Specialty Start Date End Date Cooper Adam MD [address] [address] PCP - General Family Medicine 02/20/21 Salvador Jenkins MD [address] [place] [address] Primary Oncologist Medical Oncology 04/24/20 Faye Davey CNP [address] [place] [address] Nurse Practitioner Medical Oncology 02/27/21 documented as of this encounter Additional Source Comments The information contained in this document represents components of the legal health record. It is not the complete legal health record.[facility]
--- OUTSIDE RECORDS SUMMARY | 2024-12-21 12:42 | XMS_ITS | Encounter Summary ---
Author Organization [facility] Address [address] [facility] [place] [address] Phone Care Team Providers Care Roustabout Pusher Name Role Phone Salvador Jenkins MD Unavailable [phone] Cooper Adam MD Primary Care Provide r Faye Davey APPLICATIONS ARCHITECT Unavailable Encounter Details Date Type Department Care Team (Late st Contact Info) Description 11/22/2024 Orders Only [facility] Center at [address] [address] Katharine Tristan, [facility] [address] [place] [address] Vitamin B12 deficiency (Primary Dx) Social History Tobacco Use Types Packs/Day Years [...] with a working camera? Not on file Comments Unknown Sex and Gender Information Value Date Recorded Sex Assigned at Not on file Legal Sex Female 9:45 PM EDT Gender Identity Not on file Sexual Orientation Not on file documented as of this encounter Plan of Treatment Upcoming Encounters Date Type Department Care Team (Late st Contact Info) Description 07/15/2024 Procedure Pass Echo Lab [address] [place] [address] 12/27/2024 2:20 PM EDT Infusion [facility] Center at [address] [address] 01/19/2025 11:45 AM EDT Office Visit [facility] [address] [place] [address] 3rd Floor, [address] [place] [address] Rashi Garcia MD [address] [place] [address] 01/24/2025 2:20 PM EDT Infusion [facility] at [address] [address] 02/21/2025 1:00 PM EDT Infusion [facility] at [address] [address] 07/04/2026 1:45 PM EST Appointment Echo Lab [address] [place] [address] Julián Galvez MD [address] [place] [address] 07/18/2026 2:00 PM EDT Office Visit [facility] [address] [place] [address] 3rd Floor, [address] [address] Julián Galvez MD [address] [place] [address] documented as of this encounter Results * (ABNORMAL) Comprehensive metabolic panel (11/29/2024 1:37 PM EDT) SODIUM 139 133 - 146 mmol/L [facility] POTASSIUM 3.3 3.3 - 5.1 mmol/L [facility] CHLORIDE 101 96 - 108 mmol/L [facility] CO2 25 21 - 35 mmol/L [facility] BUN 16 6 - 19 mg/dL [facility] CREATININE 1.00 0.5 - 1.5 mg/dL [facility] GLUCOSE 110(H) 70 - 99 mg/dL [facility] ALBUMIN 4.4 3.9 - 4.8 g/dL [facility] TOTAL PROTEIN 7.5 6.5 - 8.0 g/dL [facility] CALCIUM 9.4 8.4 - 10.3 mg/dL [facility] ALKALINE PHOSPHATASE 94 39 - 117 U/L [facility] TOTAL BILIRUBIN 0.6 0.0 - 1.2 mg/dL [facility] AST 18 0 - 37 U/L [facility] ALT 19 0 - 40 U/L [facility] GLOBULIN 3.1 1 - 4.8 g/dL [facility] EGFR 63 >59 mL/min/1.7 3m2 [facility] Comment:Estimated glomerular filtration rate calculated using the CKD-EPI refit equation. ANION GAP 16 10 - 20 mmol/L [facility] Blood 11/29/2024 1:37 PM EDT 11/29/2024 1:44 PM EDT us Salvador Jenkins MD LAB BLOOD ORDERABLES Final Res ult [address] [id number] * (ABNORMAL) CBC and differential (11/29/2024 1:37 PM EDT) WBC 11.95(H) 4.00 - 11.00 K/uL [facility] RBC 4.07 4.00 - 5.20 M/uL [facility] HGB 13.1 12.0 - 16.0 g/dL [facility] HCT 38.2 36.0 - 46.0 % [facility] PLT 278 150 - 450 K/uL [facility] MCV 93.9 80.0 - 100.0 fL [facility] MCH 32.2(H) 27.0 - 31.0 pg [facility] MCHC 34.3 32.0 - 36.0 g/dL [facility] RDW 12.0 11.5 - 14.5 % [facility] MPV 10.5 8.4 - 12.0 fL [facility] NRBC 0.00 0.00 /100 WBCs [facility] ABSOLUTE NRBC 0.00 0.00 K/uL [facility] DIFF METHOD Auto [facility] NEUTS 64.6 48.0 - 76.0 % [facility] LYMPHS 27.7 18.0 - 41.0 % [facility] MONOS 5.4 4.0 - 11.0 % [facility] EOS 1.5 0.0 - 5.0 % [facility] BASOS 0.5 0.0 - 1.5 % [facility] Granulocytes, immature (%) 0.3 0.0 - 0.9 % [facility] ABSOLUTE NEUTS 7.72(H) 1.92 - 7.60 K/uL [facility] ABSOLUTE LYMPHS 3.31 0.72 - 4.10 K/uL [facility] ABSOLUTE MONOS 0.64 0.16 - 1.10 K/uL [facility] ABSOLUTE EOS 0.18 0.00 - 0.50 K/uL [facility] ABSOLUTE BASOS 0.06 0.00 - 0.15 K/uL [facility] Granulocytes, immature 0.04 0.00 - 0.09 K/uL [facility] Blood 11/29/2024 1:37 PM EDT 11/29/2024 1:44 PM EDT us Salvador Jenkins MD LAB BLOOD ORDERABLES Final Res ult [facility] [address] [place] [address] * Vitamin B12 (11/29/2024 1:37 PM EDT) VITAMIN B12 1,000 232 - 1,245 pg/mL [facility] Blood 11/29/2024 1:37 PM EDT 11/29/2024 1:44 PM EDT us Salvador Jenkins MD LAB BLOOD ORDERABLES Final Res ult Performing Organization Address City/[facility]/ZIP Co de Phone Number [address] [address] * (ABNORMAL) Ferritin (11/29/2024 1:37 PM EDT) FERRITIN 154(H) 13 - 150 ug/L [facility] Blood 11/29/2024 1:37 PM EDT 11/29/2024 1:44 PM EDT us Salvador Jenkins MD LAB BLOOD ORDERABLES Final Res ult Performing Organization Address [facility] Co de Phone Number [address] [address] documented in this encounter Visit Diagnoses Diagnosis Vitamin B12 deficiency- Primary Other B-complex deficiencies documented in this encounter Care Teams Roustabout Pusher Relationship Specialty Start Date End Date Cooper Adam MD [facility] [address] [address] PCP - General Family Medicine 02/20/21 Salvador Jenkins MD [address] [place] [address] Primary Oncologist Medical Oncology 04/24/20 Faye Davey CNP [address] [place] [address] Nurse Practitioner Medical Oncology 02/27/21 documented as of this encounter Additional Source Comments The information contained in this document represents components of the legal health record. It is not the complete legal health record.[facility]
--- OUTSIDE RECORDS SUMMARY | 2024-12-21 12:42 | XMS_ITS | Encounter Summary ---
Author Organization [facility] Address [address] [facility] [address] [place] [address] Phone Care Team Providers Care Wetlands Conservation Laborer Name Role Phone Salvador Jenkins MD Unavailable [phone] Cooper Adam MD Primary Care Provide r Faye Davey CNP Unavailable Reason for Visit * Reason Onset Date Comments Appointment 11/01/2024 Pt no show, need s new appt Encounter Details Date Type Department Care Team (Late st Contact Info) Description 11/01/2024 Telephone [facility] IP Oncology - Virtual Department [address] [place] [address] Nelson Barba, Marleny Perez, RN [address] [place] [address] [email or web address] Appointment (Pt no show, needs new appt ) Social History Tobacco Use Types Packs/Day Years [...] on file documented as of this encounter Progress Notes * Marleny Cunningham RN - 11/01/2024 9:38 AM EDT Pt requesting new apt for as her preference. Please contact pt and reschedule. Thank you documented in this encounter Plan of Treatment Upcoming Encounters Date Type Department Care Team (Late st Contact Info) Description 07/15/2024 Procedure Pass Echo Lab [address] [place] [address] 12/27/2024 2:20 PM EDT Infusion [facility] Cancer Center at [address] [address] 01/19/2025 11:45 AM EDT Office Visit [facility] [address] [place] [address] 3rd Floor, [address] [place] [address] Rashi Garcia MD [address] [place] [address] 01/24/2025 2:20 PM EDT Infusion [facility] General Cancer Center at [address] [address] 02/21/2025 1:00 PM EDT Infusion [facility] Cancer [facility] at [address] [address] 07/04/2026 1:45 PM EST Appointment Echo Lab [address] [place] [address] Julián Galvez MD [address] [place] [address], [address] [address] 07/18/2026 2:00 PM EDT Office Visit [facility] [address] [facility] 3rd Floor, [address] [place] [address] Julián Galvez MD [address] [facility], [address] [place] [address] [email or web address] documented as of this encounter Visit Diagnoses Not on filedocumented in this encounter Care Teams Wetlands Conservation Laborer Relationship Specialty Start Date End Date Cooper Adam MD [address] [facility] [address] [place] [address] PCP - General Family Medicine 02/20/21 Salvador Jenkins MD [address] [place] [address] Primary Oncologist Medical Oncology 04/24/20 Faye Davey CNP [address] [place] [address] Nurse Practitioner Medical Oncology 02/27/21 documented as of this encounter Additional Source Comments The information contained in this document represents components of the legal health record. It is not the complete legal health record.[facility]
--- OUTSIDE RECORDS SUMMARY | 2024-12-21 12:42 | XMS_ITS | Encounter Summary ---
Author Organization [facility] Address [address] [place] [address] [place] [address] Phone Care Team Providers Care Server Name Role Phone Shiloh Gauthier MD Primary Care Provider Salvador eJnkins MD Unavailable [phone] Malika James MD Primary Care Provider [phone] Venancio Lomeli NP Primary Care Provider [phone] Cooper Adam MD Primary Care Provide r Faye Davey INSERTER Unavailable Reason for Referral * MRI/CAT Scan - Closed Specialty Diagnoses / Procedures Referred By Contac t Referred To Contact Radiology Diagnoses Lumbar radiculopathy Procedures MRI Lumbar Spine Bibi Tobias NP [address] [place] [address] Phone: tel: fax: [email or web address] Referral ID Status Reason Start Date Expiration Date Visits Re quested Visits Authorized [id number] Closed 06/13/2020 06/13/2021 1 1 Encounter Details Date Type Department Care Team (Latest Contact Info) Description 06/13/2020 Ancillary Orders Virtual Department [address] [place] [address] Bibi Tobias, ISIDRA [address] [place] [phone] [email or web address] Lumbar radiculopathy Social History Tobacco Use Types Packs/Day Years [...] Info) Description 07/15/2024 Procedure Pass Echo Lab [address] [place] [address] 12/27/2024 2:20 PM EDT Infusion [facility] Cancer Center at [address] [address] 01/19/2025 11:45 AM EDT Office Visit [facility] [address] [place] [address] 3rd Floor, [address] [place] [address] Rashi Garcia MD [address] [place] [address] 01/24/2025 2:20 PM EDT Infusion [facility] Center at [address] [address] 02/21/2025 1:00 PM EDT Infusion [facility] at [address] [address] 07/04/2026 1:45 PM EST Appointment Echo Lab [address] [place] [address] Julián Galvez MD [address] [place] [address], [address] [address] [email or web address] 07/18/2026 2:00 PM EDT Office Visit [facility] [address] [facility] 3rd Floor, [address] [place] [address] Julián Galvez MD [address] [facility], [address] [place] [address] [email or web address] documented as of this encounter Results * MRI LUMBAR SPINE (NEURO) WITHOUT CONTRAST (06/21/2020 7:22 AM EST) Anatomical Region Laterality Modality L-spine Magnetic Resonan ce 06/21/2020 8:01 AM EST Impressions 06/21/2020 8:09 AM EST Stable mild multilevel degenerative changes. No large disc herniation, canal/neural foraminal stenosis or nerve root compression. Narrative 06/21/2020 8:09 AM EST COMPARISON: 03/10/2018. TECHNIQUE: Exam performed on a 1.5 Inga high-field MRI scanner. Sagittal T1, T2 and STIR, axial T1 and T2 sequences were obtained. MRI LUMBAR SPINE FINDINGS: Mild upper lumbar levoscoliosis. Disc spaces are preserved. Stable L5-S1 disc desiccation. No compression fractures. No malalignment. No destructive or suspicious bone lesions. Conus terminates at L1. Paraspinal soft tissues are normal. Additional findings: There is an incidental 1.1 cm posterior right mid renal pole cortical cyst. No findings of concern. L1-L2: Unremarkable. L2-L3: Unremarkable. L3-L4: Stable left foraminal disc bulging. L4-L5: Stable mild facet arthropathy. L5-S1: Stable small broad-based central disc protrusion and mild facet arthropathy. Procedure Note Олег Orlando MD - 06/21/2020 COMPARISON: 03/10/2018. TECHNIQUE: Exam performed on a 1.5 Inga high-field MRI scanner. SagittalT1, T2 and STIR, axial T1 and T2 sequences were obtained. MRI LUMBAR SPINE FINDINGS: Mild upper lumbar levoscoliosis. Disc spaces are preserved. Stable L5-S1disc desiccation. No compression fractures. No malalignment. Nodestructive or suspicious bone lesions. Conus terminates at L1. Paraspinalsoft tissues are normal. Additional findings: There is an incidental 1.1 cm posterior right midrenal pole cortical cyst. No findings of concern. L1-L2: Unremarkable. L2-L3: Unremarkable. L3-L4: Stable left foraminal disc bulging. L4-L5: Stable mild facet arthropathy. L5-S1: Stable small broad-based central disc protrusion and mild facetarthropathy. IMPRESSION: Stable mild multilevel degenerative changes. No large disc herniation,canal/neural foraminal stenosis or nerve root compression. Bibi Tobias NP IMG MR XSPECIALTY Final Result documented in this encounter Visit Diagnoses Diagnosis Lumbar radiculopathy Thoracic or lumbosacral neuritis or radiculitis, unspecified Lumbar radiculopathy Thoracic or lumbosacral neuritis or radiculitis, unspecified documented in this encounter Care Teams Server Relationship Specialty Start Date End Date Shiloh Gauthier MD [address] [place] [address] PCP - General Family Medicine 04/14/19 06/20/20 Malika James MD [address] [address] [email or web address] PCP - General 06/21/20 12/03/20 Venancio Lomeli NP [address] [place] [address] PCP - General Family Medicine 12/04/20 02/19/21 Cooper Adam MD [address] [address] PCP - General Family Medicine 02/20/21 Salvador Jenkins MD [address] [place] [address] [email or web address] Primary Oncologist Medical Oncology 04/24/20 Faye Davey CNP [address] [place] [address] [email or web address] Nurse Practitioner Medical Oncology 02/27/21 documented as of this encounter Additional Source Comments The information contained in this document represents components of the legal health record. It is not the complete legal health record.[facility]
--- OUTSIDE RECORDS SUMMARY | 2024-12-21 12:42 | XMS_ITS | Encounter Summary ---
Author Organization [facility] Address [address] [facility] [address] [place] [address] Phone Care Team Providers Care Data Assistant Name Role Phone Salvador Jenkins MD Unavailable [phone] Cooper Adam MD Primary Care Provide r Faye Davey ELECTRICAL LINE SPLICER Unavailable Encounter Details Date Type Department Care Team (Late st Contact Info) Description 04/18/2022 Procedure Pass Echo Lab [place] [place] [address] Social History Tobacco Use Types Packs/Day Years [...] Info) Description 07/15/2024 Procedure Pass Echo Lab [address] [place] [address] 12/27/2024 2:20 PM EDT Infusion [facility] at [place] [address] [place] [address] 01/19/2025 11:45 AM EDT Office Visit [facility] [address] [place] [address] 3rd [facility], [address] [place] [address] Rashi Garcia MD [address] [place] [address] 01/24/2025 2:20 PM EDT Infusion [facility] Center at [address] [address] 02/21/2025 1:00 PM EDT Infusion [facility] at [address] [address] 07/04/2026 1:45 PM EST Appointment Echo Lab [address] [place] [address] Julián Glavez MD [address] [place] [address] 07/18/2026 2:00 PM EDT Office Visit [facility] [address] [place] [address] [place] [address], [address] [address] Julián Galvez MD [address] [place] [address] documented as of this encounter Visit Diagnoses Not on filedocumented in this encounter Care Teams Data Assistant Relationship Specialty Start Date End Date Cooper Adam MD [address] [address] PCP - General Family Medicine 02/20/21 Salvador Jenkins MD [address] [place] [address] Primary Oncologist Medical Oncology 04/24/20 Faye Davey CNP [address] [place] [address] Nurse Practitioner Medical Oncology 02/27/21 documented as of this encounter Additional Source Comments The information contained in this document represents components of the legal health record. It is not the complete legal health record.[facility]
--- OUTSIDE RECORDS SUMMARY | 2024-12-21 12:42 | XMS_ITS | Encounter Summary ---
Author Organization [facility] Address [address] [facility] [address] [place] [address] Phone Care Team Providers Care Cracker Dough Mixer Name Role Phone Salvador Jenkins MD Unavailable [phone] Cooper Adam MD Primary Care Provide r Faye Davey CNP Unavailable Reason for Visit * Reason Comments Medication Refill Encounter Details Date Type Department Care Team (Late st Contact Info) Description 06/09/2024 Refill [facility] [address] [place] [address] 3rd Floor, [address] [place] [address] Chucho Gage MD, MS [address] [facility], [address] [place] [address] [email or web address] Medication Refill Social History Tobacco Use Types Packs/Day Years [...] Info) Description 07/15/2024 Procedure Pass Echo Lab [address] [place] [address] 12/27/2024 2:20 PM EDT Infusion [facility] at [address] [address] 01/19/2025 11:45 AM EDT Office Visit [facility] [address] [place] [address] 3rd [facility], [address] [address] Rashi Garcia MD [address] [place] [address] 01/24/2025 2:20 PM EDT Infusion [facility] at [address] [address] 02/21/2025 1:00 PM EDT Infusion [facility] at [address] [address] 07/04/2026 1:45 PM EST Appointment Echo Lab [address] [place] [address] Julián Galvez MD [address] [place] [address], [address] [address] 07/18/2026 2:00 PM EDT Office Visit [facility] [address] [place] [address] 3rd [facility], [address] [address] Julián Galvez MD [address] [place] [address], [address] [address] documented as of this encounter Visit Diagnoses Not on filedocumented in this encounter Care Teams Cracker Dough Mixer Relationship Specialty Start Date End Date Cooper Adam MD [address] [address] PCP - General Family Medicine 02/20/21 Salvador Jenkins MD [address] [place] [address] [email or web address] Primary Oncologist Medical Oncology 04/24/20 Faye Davey CNP [address] [place] [address] [email or web address] Nurse Practitioner Medical Oncology 02/27/21 documented as of this encounter Additional Source Comments The information contained in this document represents components of the legal health record. It is not the complete legal health record.[facility]
--- OUTSIDE RECORDS SUMMARY | 2024-12-21 12:42 | XMS_ITS | Encounter Summary ---
Author Organization [facility] Address [address] [facility] [address] [place] [address] Phone Care Team Providers Care Hand Tier Name Role Phone Salvador Jenkins MD Unavailable [phone] Cooper Adam MD Primary Care Provide r Faye Davey FIELD INSPECTOR Unavailable Encounter Details Date Type Department Care Team (Late st Contact Info) Description 06/06/2021 Transcribe Orders [facility] [address] [place] [address] Rashi Garcia MD [address] [facility], [address] [place] [address] [email or web address] Social History Tobacco Use Types Packs/Day Years [...] Info) Description 07/15/2024 Procedure Pass Echo Lab [address] [place], [place] [address] 12/27/2024 2:20 PM EDT Infusion [facility] Center at [address] [address] 01/19/2025 11:45 AM EDT Office Visit [facility] [address] [place] [address] 3rd [facility], [address] [address] Rashi Garcia MD [address] [place] [address] 01/24/2025 2:20 PM EDT Infusion [facility] at [address] [address] 02/21/2025 1:00 PM EDT Infusion [facility] at [address] [address] 07/04/2026 1:45 PM EST Appointment Echo Lab [address] [address] Julián Galvez MD [address] [place] [address] 07/18/2026 2:00 PM EDT Office Visit [facility] [address] [place] [address], [address] [address] Julián Galvez MD [address] [place] [address] documented as of this encounter Visit Diagnoses Not on filedocumented in this encounter Care Teams Hand Tier Relationship Specialty Start Date End Date Cooper [facility] [address] [address] PCP - General Family Medicine 02/20/21 Salvador Jenkins MD [address] [place] [address] [email or web address] Primary Oncologist Medical Oncology 04/24/20 Faye Davey CNP [address] [place] [address] [email or web address] Nurse Practitioner Medical Oncology 02/27/21 documented as of this encounter Additional Source Comments The information contained in this document represents components of the legal health record. It is not the complete legal health record.[facility]
--- OUTSIDE RECORDS SUMMARY | 2024-12-21 12:42 | XMS_ITS | Encounter Summary ---
Author Organization [facility] Address [address] [place] [address] [place] [address] Phone Care Team Providers Care Energy Derivatives Trader Name Role Phone Salvador Jenkins MD Unavailable [phone] Malika James MD Primary Care Provider [phone] Venancio Lomeli NP Primary Care Provider [phone] Cooper Adam MD Primary Care Provide r Faye Davey HOG PUSHER Unavailable Encounter Details Date Type Department Care Team (Late st Contact Info) Description 07/31/2020 Procedure Pass [facility], Ct Scan - [facility] [address] [place] [address] Social History Tobacco Use Types Packs/Day Years [...] Info) Description 07/15/2024 Procedure Pass Echo [facility] [address] [place] [address] 12/27/2024 2:20 PM EDT Infusion [facility] at [address] [address] 01/19/2025 11:45 AM EDT Office Visit [facility] [address] [place] [address], [address] [address] Rashi Garcia MD [address] [place] [address] 01/24/2025 2:20 PM EDT Infusion [facility] at [address] [address] 02/21/2025 1:00 PM EDT Infusion [facility] at [address] [address] 07/04/2026 1:45 PM EST Appointment Echo Lab [address] [address] Julián Galvez MD [address] [place] [address] 07/18/2026 2:00 PM EDT Office Visit [facility] [address], [address] [address] Julián Galvez MD [address] [place] [address] documented as of this encounter Visit Diagnoses Not on filedocumented in this encounter Care Teams Energy Derivatives Trader Relationship Specialty Start Date End Date Malika James MD [address] [address] [email or web address] PCP - General 06/21/20 12/03/20 Venancio Lomeli, FOUNDRY FINISHER [address] [place] [address] PCP - General Family Medicine 12/04/20 02/19/21 Cooper Adam MD [address] [address] PCP - General Family Medicine 02/20/21 Salvador Jenkins MD 30 [place] [address] Primary Oncologist Medical Oncology 04/24/20 Faye Davey CNP [address] [place] [address] Nurse Practitioner Medical Oncology 02/27/21 documented as of this encounter Additional Source Comments The information contained in this document represents components of the legal health record. It is not the complete legal health record.[facility]
--- OUTSIDE RECORDS SUMMARY | 2024-12-21 12:43 | XMS_ITS | Encounter Summary ---
Author Organization [facility] Address [address] [place] [address] [place] [address] Phone Care Team Providers Care Housing Inspector Name Role Phone Napoleon Michele MD Primary Care Provider [phone] Stephanie Andino DO Unavailable [phone] Shiloh Gauthier MD Primary Care Provider Salvador Jenkins MD Unavailable [phone] Malika James MD Primary Care Provider [phone] Venancio Lomeli NP Primary Care Provider [phone] Cooper Adam MD Primary Care Provide r Faye Davey CNP Unavailable Encounter Details Date Type Department Care Team (Latest Contact Info) Description 12/30/2017 Transcribe Orders [facility] 30 [place] [address] Stephanie Andino DO 30 [place] [address] [email or web address] Screening for condition (Primary Dx) Social History Tobacco Use Types Packs/Day Years Used Date Smoking Tobacco: Never Smokeless Tobacco: Never Comments Unknown Sex and Gender Information Value Date Recorded Sex Assigned at Not on file Legal Sex Female 9:45 PM EDT Gender Identity Not on file Sexual Orientation Not on file documented as of this encounter Plan of Treatment Upcoming Encounters Date Type Department Care Team (Late st Contact Info) Description 07/15/2024 Procedure Pass Echo Lab [address] [place] [address] 12/27/2024 2:20 PM EDT Infusion [facility] at [address] [address] 01/19/2025 11:45 AM EDT Office Visit [facility] [address] [place] [address] [place] [address], [address] [place] [address] Rashi Garcia MD [address] [place] [address] 01/24/2025 2:20 PM EDT Infusion [facility] at [address] [address] 02/21/2025 1:00 PM EDT Infusion [facility] at [address] [address] 07/04/2026 1:45 PM EST Appointment Echo Lab [address] [place] [address] Julián Galvez MD [address] [place] [address] 07/18/2026 2:00 PM EDT Office Visit [facility] [address] [place] [address] [place] [address], [address] [address] Julián Galvez MD [address] [place] [address] documented as of this encounter Results * Chemistry Hold (12/30/2017 1:39 PM EDT) Blood 12/30/2017 1:39 PM EDT 12/30/2017 1:54 PM EDT Stephanie Andino DO LAB BLOOD ORDERABLES Final Result [facility] documented in this encounter Visit Diagnoses Diagnosis Screening for condition- Primary Screening for unspecified condition documented in this encounter Care Teams Housing Inspector Relationship Specialty Start Date End Date Napoleon Michele MD [address] [address] [email or web address] PCP - General 02/12/17 04/13/19 Shiloh Gauthier MD [address] [place] [address] PCP - General Family Medicine 04/14/19 06/20/20 aMlika James MD [address] [place] [address] [email or web address] PCP - General 06/21/20 12/03/20 Venancio Lomeli NP [address] [place] [address] PCP - General Family Medicine 12/04/20 02/19/21 Cooper Adam MD [address] [place] [address] PCP - General Family Medicine 02/20/21 Stephanie Andino DO [address] [address] [email or web address] Primary Oncologist Hematology and Oncology 03/10/1704/23 Salvador Jenkins MD [address] [place] [address] [email or web address] Primary Oncologist Medical Oncology 04/24/20 Faye Davey CNP [address] [place] [address] [email or web address] Nurse Practitioner Medical Oncology 02/27/21 documented as of this encounter Additional Source Comments The information contained in this document represents components of the legal health record. It is not the complete legal health record.[facility]
--- OUTSIDE RECORDS SUMMARY | 2024-12-21 12:43 | XMS_ITS | Encounter Summary ---
Author Organization [facility] Address [address] [place] [address] [place] [address] Phone Care Team Providers Care Fisheries Enforcement Officer Name Role Phone Stephanie Andino DO Unavailable Shiloh Gauthier MD Primary Care Provider Salvador Jenkins MD Unavailable [phone] Malika James MD Primary Care Provider [phone] Venancio Lomeli IRON PILER Primary Care Provider [phone] Cooper Adam MD Primary Care Provide r Faye Davey CNP Unavailable Encounter Details Date Type Department Care Team (Late st Contact Info) Description 05/23/2019 Procedure Pass [facility]oscopy Admitting Dept Virtual Department 30 [place] [address] Social History Tobacco Use Types Packs/Day Years [...] Info) Description 07/15/2024 Procedure Pass Echo Lab [address] [address] 12/27/2024 2:20 PM EDT Infusion [facility] at [address] [address] 01/19/2025 11:45 AM EDT Office Visit [facility] [address], [address] [address] Rashi Garcia MD [address] [place] [address] 01/24/2025 2:20 PM EDT Infusion [facility] at [address] [address] 02/21/2025 1:00 PM EDT Infusion [facility] at [address] [address] 07/04/2026 1:45 PM EST Appointment Echo Lab [address] [address] Julián Galvez MD [address] [place] [address] 07/18/2026 2:00 PM EDT Office Visit [facility] [address] [place] [address], [address] [address] Julián Galvez MD [address] [place] [address] documented as of this encounter Visit Diagnoses Not on filedocumented in this encounter Care Teams Fisheries Enforcement Officer Relationship Specialty Start Date End Date Shiloh Gauthier [facility] [place] [address] PCP - General Family Medicine 04/14/19 06/20/20 Malika James MD [address] [facility] [address] [place] [address] [email or web address] PCP - General 06/21/20 12/03/20 Venancio Lomeli NP [address] [place] [address] PCP - General Family Medicine 12/04/20 02/19/21 Cooper Adam MD [address] [address] PCP - General Family Medicine 02/20/21 Stephanie Andino DO [email or web address] Primary Oncologist Hematology and Oncology 03/10/1704/23 Salvador Jenkins MD [address] [place] [address] Primary Oncologist Medical Oncology 04/24/20 Faye Davey CNP [address] [place] [address] Nurse Practitioner Medical Oncology 02/27/21 documented as of this encounter Additional Source Comments The information contained in this document represents components of the legal health record. It is not the complete legal health record.[facility]
--- OUTSIDE RECORDS SUMMARY | 2024-12-21 12:43 | XMS_ITS | Encounter Summary ---
Author Organization [facility] Address [address] [place] [address] [place] [address] Phone Care Team Providers Care Manufacturing Engineering Technician Name Role Phone Napoleon Michele MD Primary Care Provider [phone] Stephanie Andino DO Unavailable [phone] Shiloh Gauthier MD Primary Care Provider Salvador Jenkins MD Unavailable [phone] Malika James MD Primary Care Provider [phone] Venancio Lomeli NP Primary Care Provider [phone] Cooper Adam MD Primary Care Provide r Faye Davey CNP Unavailable Encounter Details Date Type Department Care Team (Late st Contact Info) Description 12/01/2018 Procedure Pass [facility] Endoscopy Admitting Dept Virtual Department 30 [place], [place] [id number] Social History Tobacco Use Types Packs/Day Years [...] on file documented as of this encounter Functional Status documented as of this encounter Plan of Treatment Upcoming Encounters Date Type Department Care Team (Late st Contact Info) Description 07/15/2024 Procedure Pass Echo Lab [address] [address] 12/27/2024 2:20 PM EDT Infusion [facility] [place] at [address] [address] 01/19/2025 11:45 AM EDT Office Visit [facility] [address], [address] [address] Rashi Garcia MD [address] [place] [address] 01/24/2025 2:20 PM EDT Infusion [facility] at [address] [address] 02/21/2025 1:00 PM EDT Infusion [facility] at [address] [address] 07/04/2026 1:45 PM EST Appointment Echo Lab [address] [address] Julián Galvez MD [address] [place] [address] 07/18/2026 2:00 PM EDT Office Visit [facility] [address], [address] [address] Julián Galvez MD [address] [place] [address] documented as of this encounter Visit Diagnoses Not on filedocumented in this encounter Care Teams Manufacturing Engineering Technician Relationship Specialty Start Date End Date Napoleon Michele MD [facility] [place] [address] [email or web address] PCP - General 02/12/17 04/13/19 Shiloh Gauthier MD [address] [place] [address] PCP - General Family Medicine 04/14/19 06/20/20 Malika James MD [address] [place] [address] [email or web address] PCP - General 06/21/20 12/03/20 Venancio Lomeli NP [address] [place] [address] PCP - General Family Medicine 12/04/20 02/19/21 Cooper Adam MD [address] [address] PCP - General Family Medicine 02/20/21 Stephanie Andino DO [address] [address] [email or web address] Primary Oncologist Hematology and Oncology 03/10/1704/23 Salvador Jenkins MD 30 [place] [address] [email or web address] Primary Oncologist Medical Oncology 04/24/20 Faye Davey CNP 30 [place] [address] Nurse Practitioner Medical Oncology 02/27/21 documented as of this encounter Additional Source Comments The information contained in this document represents components of the legal health record. It is not the complete legal health record.[facility]
--- OUTSIDE RECORDS SUMMARY | 2024-12-21 12:43 | XMS_ITS | Encounter Summary ---
Author Organization [facility] Address [address] [place] [address] [place] [address] Phone Care Team Providers Care Speedometer Inspector Name Role Phone Napoleon Michele MD Primary Care Provider [phone] Stephanie Andino DO Unavailable Shiloh Gauthier MD Primary Care Provider Salvador Jenkins MD Unavailable [phone] Malika James MD Primary Care Provider [phone] Venancio Lomeli NP Primary Care Provider [phone] Cooper Adam MD Primary Care Provide r Faye Davey CNP Unavailable Encounter Details Date Type Department Care Team (Latest Contact Info) Description 04/06/2019 Transcribe Orders [facility] [address] [id number] Vicki Tuttle PA [address] [place], [place] [phone] Diverticulitis of large intestine without perforation or abscess without bleeding (Primary Dx); Nausea Social History Tobacco Use Types Packs/Day Years [...] Info) Description 07/15/2024 Procedure Pass Echo Lab [address] [place] [address] 12/27/2024 2:20 PM EDT Infusion [facility] at [address] [address] 01/19/2025 11:45 AM EDT Office Visit [facility] [address] [place] [address] 3rd [facility], [address] [address] Rashi Garcia MD [address] [place] [address] 01/24/2025 2:20 PM EDT Infusion [facility] at [address] [address] 02/21/2025 1:00 PM EDT Infusion [facility] Center at [address] [address] 07/04/2026 1:45 PM EST Appointment Echo Lab [address] [place] [address] Julián Galvez MD [address] [place] [address], [address] [address] 07/18/2026 2:00 PM EDT Office Visit [facility] [address] [place] [address] 3rd Floor, [address] [address] Julián Galvez MD [address] [place] [address] documented as of this encounter Results * C-Reactive Protein (04/06/2019 10:52 AM EST) C REACTIVE PROTEIN 2.5 0.0 - 4.0 mg/L [facility] Blood 04/06/2019 10:5 2 AM EST 04/06/2019 10:56 AM EST us Vicki GUERRA LAB BLOOD ORDERABLES Final Result [address] [address] * (ABNORMAL) Comprehensive metabolic panel (04/06/2019 10:52 AM EST) SODIUM 141 133 - 146 mmol/L [facility] POTASSIUM 4.3 3.3 - 5.1 mmol/L [facility] CHLORIDE 103 96 - 108 mmol/L [facility] CO2 22 21 - 35 mmol/L [facility] BUN 14 6 - 19 mg/dL [facility] CREATININE 0.70 0.5 - 1.5 mg/dL [facility] GLUCOSE 100(H) 70 - 99 mg/dL [facility] ALBUMIN 4.3 3.9 - 4.8 g/dL [facility] TOTAL PROTEIN 7.7 6.5 - 8.0 g/dL [facility] CALCIUM 10.0 8.4 - 10.3 mg/dL [facility] ALKALINE PHOSPHATASE 80 39 - 117 U/L [facility] TOTAL BILIRUBIN 0.2 0.0 - 1.2 mg/dL [facility] AST 24 0 - 37 U/L [facility] ALT 20 0 - 40 U/L [facility] GLOBULIN 3.4 1 - 4.8 g/dL [facility] EGFR 96 >59 mL/min/1.7 3m2 [facility] Comment:If patient is black, multiply result by 1.159. Estimated glomerular filtration rate calculated using the CKD-EPI equation. ANION GAP 20 10 - 20 mmol/L [facility] Blood 04/06/2019 10:5 2 AM EST 04/06/2019 10:56 AM EST us Vicki GUERRA LAB BLOOD ORDERABLES Final Result [facility] [address] [place] [address] * (ABNORMAL) CBC and differential (04/06/2019 10:52 AM EST) WBC 11.26(H) 3.40 - 11.20 K/uL [facility] RBC 3.90 3.80 - 4.80 M/uL [facility] HGB 12.9 12.0 - 15.0 g/dL [facility] HCT 37.6 36.0 - 46.0 % [facility] PLT 343 130 - 400 K/uL [facility] MCV 96.4 79.0 - 98.0 fL [facility] MCH 33.1 27.0 - 34.8 pg [facility] MCHC 34.3 31.5 - 36.0 g/dL [facility] RDW 12.2 10.8 - 14.6 % [facility] MPV 11.2 9.4 - 12.4 fl [facility] NRBC 0.00 0.00 /100 WBCs [facility] ABSOLUTE NRBC 0.00 0.00 K/uL [facility] DIFF METHOD Auto [facility] NEUTS 66.8 45.30 - 77.70 % [facility] LYMPHS 20.7 12.30 - 39.70 % [facility] MONOS 6.6 4.10 - 12.80 % [facility] EOS 4.9 0 - 7.2 % [facility] BASOS 0.7 0 - 2.80 % [facility] Granulocytes, immature (%) 0.3 0.0 - 0.9 % [facility] ABSOLUTE NEUTS 7.53 1.40 - 7.70 K/uL [facility] ABSOLUTE LYMPHS 2.33 0.60 - 3.20 K/uL [facility] ABSOLUTE MONOS 0.74(H) 0.11 - 0.59 K/uL [facility] ABSOLUTE EOS 0.55(H) 0.01 - 0.50 K/uL [facility] ABSOLUTE BASOS 0.08 0.00 - 0.08 K/uL [facility] Granulocytes, immature 0.03 0.00 - 0.05 K/uL [facility] Blood 04/06/2019 10:5 2 AM EST 04/06/2019 10:56 AM EST us Vicki GUERRA LAB BLOOD ORDERABLES Final Result Performing Organization Address City/State/[facility] Co de Phone Number [facility] [address] [place] [address] documented in this encounter Visit Diagnoses Diagnosis Diverticulitis of large intestine without perforation or abscess without bleeding- Primary Nausea Nausea alone documented in this encounter Care Teams Speedometer Inspector Relationship Specialty Start Date End Date Napoleon Michele MD [address] [place] [address] [email or web address] PCP - General 02/12/17 04/13/19 Shiloh Gauthier MD [address] [place] [address] PCP - General Family Medicine 04/14/19 06/20/20 Malika James MD [address] [place] [address] [email or web address] PCP - General 06/21/20 12/03/20 Venancio Lomeli NP [address] [place] [address] PCP - General Family Medicine 12/04/20 02/19/21 Cooper Adam MD [address] [place] [address] PCP - General Family Medicine 02/20/21 Stephanie Andino DO [address], [place] [address] [email or web address] Primary Oncologist Hematology and Oncology 03/10/1704/23 Salvador Jenkins MD [address] [place] [address] [email or web address] Primary Oncologist Medical Oncology 04/24/20 Faye Davey CNP [address] [place] [address] [email or web address] Nurse Practitioner Medical Oncology 02/27/21 documented as of this encounter Additional Source Comments The information contained in this document represents components of the legal health record. It is not the complete legal health record.[facility]
--- OUTSIDE RECORDS SUMMARY | 2024-12-21 12:43 | XMS_ITS | Encounter Summary ---
Author Organization [facility] Address [address] [place] [address] [place] [address] Phone Care Team Providers Care [employer] Auto Repair Teacher Name Role Phone Napoleon Michele MD Primary Care Provider [phone] Stephanie Andino DO Unavailable Shiloh Gauthier MD Primary Care Provider Salvador Jenkins MD Unavailable [phone] Malika James MD Primary Care Provider [phone] Venancio Lomeli NP Primary Care Provider [phone] Cooper Adam MD Primary Care Provide r Faye Davey ASPHALT PAVING SUPERVISOR Unavailable Encounter Details Date Type Department Care Team (Latest Contact Info) Description 02/25/2019 Ancillary Orders [facility], X-Ray - [facility] [address] [place] [address] Bibi Tobias NP [address] [place] [phone] [email or web address] Cervical spondylosis without myelopathy; Thoracic spondylosis without myelopathy; Osteoarthritis of right foot, unspecified osteoarthritis type Social History Tobacco Use Types Packs/Day Years [...] Info) Description 07/15/2024 Procedure Pass Echo Lab [address] [place] [address] 12/27/2024 2:20 PM EDT Infusion [facility] at [address] [address] 01/19/2025 11:45 AM EDT Office Visit [facility] [address] [place] [address] 3rd [facility], [address] [address] Rashi Garcia MD [address] [place] [address] 01/24/2025 2:20 PM EDT Infusion [facility] at [address] [address] 02/21/2025 1:[address] [facility] at [address] [address] 07/04/2026 1:45 PM EST Appointment Echo Lab [address] [place] [address] Julián Galvez MD [address] [place] [address], [address] [address] 07/18/2026 2:00 PM EDT Office Visit [facility] [address] [place] [address] 3rd [facility], [address] [address] Julián Galvez MD [address] [place] [address], [address] [address] (work) [email or web address] documented as of this encounter Results * XR CERVICAL SPINE 4-5 VIEWS (02/25/2019 2:04 PM EDT) Anatomical Region Laterality Modality C-spine Radiographic Kathie ging 02/25/2019 2:19 PM EDT Impressions 02/25/2019 2:23 PM EDT Minor lower cervical spondylosis with disc space narrowing and minor left-sided C6-7 foraminal encroachment. S/S: Cervical spondylosis without myelopathy or radiculopathy, cervical region. Posterior neck pain POS - [id number] Narrative 02/25/2019 2:23 PM EDT COMPARISON: CT cervical spine March 01, 2008 FINDINGS: AP, lateral, both oblique, and odontoid views of the cervical spine are obtained. The odontoid appears intact. There is loss of disc space height with minor bony spurring evident at C6-7. No compression fracture or subluxation is seen. On oblique views only mild bony neural foraminal encroachment is evident on the left at C6-7. The lung apices are clear. No soft tissue calcification or bony erosion is evident. Procedure Note Shiv Copeland MD - 02/25/2019 COMPARISON: CT cervical spine March 01, 2008 FINDINGS: AP, lateral, both oblique, and odontoid views of the cervical spine areobtained. The odontoid appears intact. There is loss of disc space height with minor bony spurring evident atC6-7. No compression fracture or subluxation is seen. On oblique views only mild bony neural foraminal encroachment is evidenton the left at C6-7. The lung apices are clear. No soft tissue calcification or bony erosion is evident. IMPRESSION: Minor lower cervical spondylosis with disc space narrowing and minorleft-sided C6-7 foraminal encroachment. S/S: Cervical spondylosis without myelopathy or radiculopathy, cervicalregion. Posterior neck pain POS - [id number] Bibi Tobias NP IMG XR SPINE Final Result * XR THORACIC SPINE 3 VIEW (02/25/2019 2:02 PM EDT) Anatomical Region Laterality Modality T-spine Radiographic Kathie ging 02/25/2019 2:23 PM EDT Impressions 02/25/2019 2:25 PM EDT Thoracolumbar scoliosis with thoracic spondylosis as evident by degenerative spurring of the vertebral body endplates. S/S: Cervical spondylosis without myelopathy or radiculopathy, cervical region. Mid back pain, no trauma POS - [id number] Narrative 02/25/2019 2:25 PM EDT COMPARISON: Chest x-ray March 01, 2008 FINDINGS: AP, lateral, and lateral cervicothoracic junction views of the thoracic spine are obtained. There is a thoracolumbar curve of moderate degree convex to the left. The pedicles appear intact. No paravertebral soft tissue swelling is seen. No acute thoracic compression fracture is suggested. Moderate diffuse thoracic bony spurring is noted without compression fracture evident. Procedure Note Shiv Copeland MD - 02/25/2019 COMPARISON: Chest x-ray March 01, 2008 FINDINGS: AP, lateral, and lateral cervicothoracic junction views of the thoracicspine are obtained. There is a thoracolumbar curve of moderate degree convex to the left. The pedicles appear intact. No paravertebral soft tissue swelling is seen. No acute thoracic compression fracture is suggested. Moderate diffuse thoracic bony spurring is noted without compressionfracture evident. IMPRESSION: Thoracolumbar scoliosis with thoracic spondylosis as evident bydegenerative spurring of the vertebral body endplates. S/S: Cervical spondylosis without myelopathy or radiculopathy, cervicalregion. Mid back pain, no trauma POS - [id number] Bibi Tobias NP IMG XR SPINE Final Result * XR FOOT 3 OR MORE VIEWS (RIGHT) (02/25/2019 2:01 PM EDT) Anatomical Region Laterality Modality Foot Right Radiographic Kathie ging 02/25/2019 2:27 PM EDT Impressions 02/25/2019 2:29 PM EDT Mild hallux valgus deformity with negligible degenerative changes evident. S/S: primary osteoarthritis right ankle and foot tenderness over the right dorsal foot metatarsals suspect degenerative chagnes please evaulate hx or multiple falls may have had repeated ankle sprains possibly occult fx . Diffuse right foot pain, hallux valgus deformity, no trauma POS - [id number] Narrative 02/25/2019 2:29 PM EDT COMPARISON: None FINDINGS: 3 views of the right foot are obtained. There is a mild hallux valgus deformity. No acute bony injury or acute displacement is noted. No significant plantar calcaneal spurring is seen. There is minor enthesopathy at the Achilles tendon insertion. Procedure Note Shiv Copeland MD - 02/25/2019 COMPARISON: None FINDINGS: 3 views of the right foot are obtained. There is a mild hallux valgus deformity. No acute bony injury or acute displacement is noted. No significant plantar calcaneal spurring is seen. There is minorenthesopathy at the Achilles tendon insertion. IMPRESSION: Mild hallux valgus deformity with negligible degenerative changesevident. S/S: primary osteoarthritis right ankle and foot tenderness over the rightdorsal foot metatarsals suspect degenerative chagnes please evaulate hx ormultiple falls may have had repeated ankle sprains possibly occult fx .Diffuse right foot pain, hallux valgus deformity, no trauma POS - [id number] us Bibi Tobias NP IMG XR LOWER EXTREMITY Final Res ult * XR ANKLE 3 OR MORE VIEWS (RIGHT) (02/25/2019 2:00 PM EDT) Anatomical Region Laterality Modality Ankle Right Radiographic Kathie ging 02/25/2019 2:25 PM EDT Impressions 02/25/2019 2:27 PM EDT Unremarkable evaluation of the right ankle. No explanation for right ankle pain is confirmed. S/S: Right ankle pain-diffuse, no trauma. POS - [id number] Narrative 02/25/2019 2:27 PM EDT COMPARISON: None FINDINGS: 4 views of the right ankle are obtained. No ankle effusion is seen. The ankle mortise is normally approximated. No acute bony injury or bony displacement is evident. No osteopenia or erosive changes are seen. Procedure Note Shiv Copeland MD - 02/25/2019 COMPARISON: None FINDINGS: 4 views of the right ankle are obtained. No ankle effusion is seen. The ankle mortise is normally approximated. No acute bony injury or bony displacement is evident. No osteopenia or erosive changes are seen. IMPRESSION: Unremarkable evaluation of the right ankle. No explanation for right anklepain is confirmed. S/S: Right ankle pain-diffuse, no trauma. POS - [id number] Bibi Tobias HOT DIMPLING MACHINE OPERATOR IMG XR LOWER EXTREMITY Final Res ult documented in this encounter Visit Diagnoses Diagnosis Cervical spondylosis without myelopathy Thoracic spondylosis without myelopathy Osteoarthritis of right foot, unspecified osteoarthritis type Cervical spondylosis without myelopathy Thoracic spondylosis without myelopathy Osteoarthritis of right foot, unspecified osteoarthritis type Cervical spondylosis without myelopathy Cervical spondylosis without myelopathy Thoracic spondylosis without myelopathy Osteoarthritis of right foot, unspecified osteoarthritis type Cervical spondylosis without myelopathy Thoracic spondylosis without myelopathy documented in this encounter Care Teams [employer] Auto Repair Teacher Relationship Specialty Start Date End Date Napoleon Michele MD [address] [address] [email or web address] PCP - General 02/12/17 04/13/19 Shiloh Gauthier MD [address] [place] [address] PCP - General Family Medicine 04/14/19 06/20/20 Malika James MD [address] [facility] [facility] [address] [place] [address] [email or web address] PCP - General 06/21/20 12/03/20 Venancio Lomeli NP [address] [place] [address] PCP - General Family Medicine 12/04/20 02/19/21 [facility] [address] [address] PCP - General Family Medicine 02/20/21 Stephanie Andino DO [address] [place] [address] [email or web address] Primary Oncologist Hematology and Oncology 03/10/1704/23 Salvador Jenkins MD [address] [place] [address] Primary Oncologist Medical Oncology 04/24/20 Faye Davey CNP [address] [place] [address] Nurse Practitioner Medical Oncology 02/27/21 documented as of this encounter Additional Source Comments The information contained in this document represents components of the legal health record. It is not the complete legal health record.[facility]
--- OUTSIDE RECORDS SUMMARY | 2024-12-21 12:43 | XMS_ITS | Encounter Summary ---
Author Organization [facility] Address [address] [facility] [address] [place] [address] Phone Care Team Providers Care Spin Table Operator Name Role Phone Napoleon Michele MD Primary Care Provider [phone] Stephanie Andino DO Unavailable [phone] Shiloh Gauthier MD Primary Care Provider Salvador Jenkins MD Unavailable [phone] Malika James MD Primary Care Provider [phone] Venancio Lomeli NP Primary Care Provider [phone] Cooper Adam MD Primary Care Provide r Faye Davey CNP Unavailable Reason for Referral * MRI/CAT Scan - Closed Specialty Diagnoses / Procedures Referred By Contac t Referred To Contact Radiology Diagnoses Lumbar radiculopathy Procedures MRI Lumbar Spine Bibi Tobias NP Phone: tel: fax: mailto:[email or web address] Referral ID Status Reason Start Date Expiration Date Visits Re quested Visits Authorized [id number] Closed 01/21/2018 01/21/2019 1 1 Encounter Details Date Type Department Care Team (Latest Contact Info) Description 01/21/2018 Ancillary Orders [facility] Department [address] [place] [address] Bibi Tobias NP [address] [place] [address] [email or web address] Lumbar [email or web address] Social History Tobacco Use Types [...] Info) Description 07/15/2024 Procedure Pass Echo Lab [address] [place] [address] 12/27/2024 2:20 PM EDT Infusion [facility] at [address] [address] 01/19/2025 11:45 AM EDT Office Visit [facility] [address] [place] [address] 3rd Floor, [address] [place] [address] Rashi Garcia MD [address] [place] [address] 01/24/2025 2:20 PM EDT Infusion [facility] at [address] [address] 02/21/2025 1:00 PM EDT Infusion [facility] at [address] [address] 07/04/2026 1:45 PM EST Appointment Echo Lab [address] [place] [address] Julián Galvez MD [address] [place] [address], [address] [address] [email or web address] 07/18/2026 2:00 PM EDT Office Visit [facility] [address] [facility] 3rd Floor, [address] [place] [address] Julián Galvez MD [address] [facility], [address] [place] [address] documented as of this encounter Results * MRI LUMBAR SPINE (NEURO) WITHOUT CONTRAST (03/10/2018 12:51 PM EST) Anatomical Region Laterality Modality L-spine Magnetic Resonan ce 03/10/2018 12:4 5 PM EST Impressions 03/10/2018 1:47 PM EST Small L5-S1 disc protrusion without significant regional mass effect. No other source of pain. No evidence of an infectious process regionally. POS - [id number] Edited by: Pati Bai on 03/10/2018 1:22 PM Narrative 03/10/2018 1:47 PM EST HISTORY: Thoracolumbar and lumbar pain. Elevated white count and C-reactive protein. COMPARISON: No prior lumbar imaging. TECHNIQUE: Exam performed on a 1.5 Inga high-field MRI scanner. Sagittal T1, T2 and STIR, axial T1 and T2 sequences were obtained. Study was monitored in real-time. There were no findings that warranted giving intravenous contrast. FINDINGS: From T11-12 through L4-5 no disc abnormality is apparent. No canal or foraminal stenosis. No marrow signal changes. No paraspinal inflammatory changes. At L5-S1 there is a small inferiorly extending central disc protrusion. There does not appear to be significant regional mass effect but this could be a source of pain. No evidence of epidural abscess at this or any other level. There is a rudimentary S1-2 disc. No abnormality seen there. No prevertebral soft tissue changes. No other soft tissue findings of concern in the [id number]. Conus is at the L1-2 level. Procedure Note Yoan Aleman MD - 03/10/2018 HISTORY: Thoracolumbar and lumbar pain. Elevated white count andC-reactive protein. COMPARISON: No prior lumbar imaging. TECHNIQUE: Exam performed on a 1.5 Inga high-field MRI scanner. SagittalT1, T2 and STIR, axial T1 and T2 sequences were obtained. Study wasmonitored in real-time. There were no findings that warranted givingintravenous contrast. FINDINGS: From T11-12 through L4-5 no disc abnormality is apparent. No canal orforaminal stenosis. No marrow signal changes. No paraspinal inflammatorychanges. At L5-S1 there is a small inferiorly extending central disc protrusion.There does not appear to be significant regional mass effect but thiscould be a source of pain. No evidence of epidural abscess at this or anyother level. There is a rudimentary S1-2 disc. No abnormality seenthere. No prevertebral soft tissue changes. No other soft tissue findings ofconcern in the [id number]-di-vpio. Conus is at the L1-2 level. IMPRESSION: Small L5-S1 disc protrusion without significant regional mass effect. Noother source of pain. No evidence of an infectious process regionally. POS - [id number] Edited by: Pati Bai on 03/10/2018 1:22 PM Bibi Tobias WATCH AND CLOCK REPAIR CLERK IMG MR XSPECIALTY Final Result documented in this encounter Visit Diagnoses Diagnosis Lumbar radiculopathy Thoracic or lumbosacral neuritis or radiculitis, unspecified Lumbar radiculopathy Thoracic or lumbosacral neuritis or radiculitis, unspecified documented in this encounter Care Teams Spin Table Operator Relationship Specialty Start Date End Date Napoleon Michele MD [address] [address] [email or web address] PCP - General 02/12/17 04/13/19 Shiloh Gauthier MD [address] [place] [address] PCP - General Family Medicine 04/14/19 06/20/20 Malika James MD [address] [place] [address] [email or web address] PCP - General 06/21/20 12/03/20 Venancio Lomeli NP [address] [place] [address] PCP - General Family Medicine 12/04/20 02/19/21 Cooper Adam MD [address] [address] PCP - General Family Medicine 02/20/21 Stephanie Andino DO [address] [address] [email or web address] Primary Oncologist Hematology and Oncology 03/10/1704/23 Salvador Jenkins MD [address] [place] [address] Primary Oncologist Medical Oncology 04/24/20 Faye Davey CNP [address] [place] [address] Nurse Practitioner Medical Oncology 02/27/21 documented as of this encounter Additional Source Comments The information contained in this document represents components of the legal health record. It is not the complete legal health record.[facility]
--- OUTSIDE RECORDS SUMMARY | 2024-12-21 12:43 | XMS_ITS | Encounter Summary ---
Author Organization [facility] Address [address] [place] [address] [place] [address] Phone Care Team Providers Care Research Advisor Name Role Phone Napoleon Michele MD Primary Care Provider [phone] Stephanie Andino DO Unavailable [phone] Shiloh Gauthier MD Primary Care Provider Salvador Jenkins MD Unavailable [phone] Malika James MD Primary Care Provider [phone] Venancio Lomeli NP Primary Care Provider [phone] Cooper Adam MD Primary Care Provide r Faye Davey CNP Unavailable Encounter Details Date Type Department Care Team (Late st Contact Info) Description 11/01/2018 Procedure Pass [facility] Admitting Dept Virtual Department [address] [place], [place] [id number] Social History Tobacco Use Types Packs/Day Years [...] Info) Description 07/15/2024 Procedure Pass Echo Lab [address] [address] 12/27/2024 2:20 PM EDT Infusion [facility] at [address] [address] 01/19/2025 11:45 AM EDT Office Visit [facility] [address], [address] [address] Rashi Garcia MD [address] [place] [address] 01/24/2025 2:20 PM EDT Infusion [facility] at [address] [address] 02/21/2025 1:00 PM EDT Infusion [facility] at [address] [address] 07/04/2026 1:45 PM EST Appointment Echo Lab [address] [address] Julián Galvez MD [address] [place] [address] 07/18/2026 2:00 PM EDT Office Visit [facility] [address], [address] [address] Julián Galvez MD [address] [place] [address] documented as of this encounter Visit Diagnoses Not on filedocumented in this encounter Care Teams Research Advisor Relationship Specialty Start Date End Date Napoleon Michele MD [address] [place] [address] PCP - General 02/12/17 04/13/19 Shiloh Gauthier MD [address] [place] [address] PCP - General Family Medicine 04/14/19 06/20/20 Malika James MD [address] [address] [email or web address] PCP - General 06/21/20 12/03/20 Venancio Lomeli NP [address] [place] [address] PCP - General Family Medicine 12/04/20 02/19/21 Cooper Adam MD [address] [place] [address] PCP - General Family Medicine 02/20/21 Stephanie Andino DO [address] [address] [email or web address] Primary Oncologist Hematology and Oncology 03/10/1704/23 Salvador Jenkins MD [address] [place] [address] Primary Oncologist Medical Oncology 04/24/20 Faye Davey CNP [address] [place] [address] Nurse Practitioner Medical Oncology 02/27/21 documented as of this encounter Additional Source Comments The information contained in this document represents components of the legal health record. It is not the complete legal health record.[facility]
--- OUTSIDE RECORDS SUMMARY | 2024-12-21 12:43 | XMS_ITS | Encounter Summary ---
Author Organization [facility] Address [address] [place] [address] [place] [address] Phone Care Team Providers Care Acid Wash Operator Name Role Phone Napoleon Michele MD Primary Care Provider [phone] Stephanie Andino DO Unavailable [phone] Shiloh Gauthier MD Primary Care Provider Salvador Jenkins MD Unavailable [phone] Malika James MD Primary Care Provider [phone] Venancio Lomeli NP Primary Care Provider [phone] Copoer Adam MD Primary Care Provide r Faye Davey CNP Unavailable Encounter Details Date Type Department Care Team (Latest Contact Info) Description 12/02/2018 Transcribe Orders [facility] [address] [place] [address] Stephanie Andino DO [address] [place] [address] [email or web address] Screening for unspecified condition (Primary Dx) Social History Tobacco Use [...] Info) Description 07/15/2024 Procedure Pass Echo Lab [address] [place] [address] 12/27/2024 2:20 PM EDT Infusion [facility] at [address] [address] 01/19/2025 11:45 AM EDT Office Visit [facility] [address] [place] [address] 3rd [facility], [address] [address] Rashi Garcia MD [address] [place] [address] 01/24/2025 2:20 PM EDT Infusion [facility] at [address] [address] 02/21/2025 1:00 PM EDT Infusion [facility] at [address] [address] 07/04/2026 1:45 PM EST Appointment Echo Lab [address] [place] [address] Julián Galvez MD [address] [place] [address], [address] [address] 07/18/2026 2:00 PM EDT Office Visit [facility] [address] [place] [address] 3rd Floor, [address] [place] [address] Julián Galvez MD [address] [place] [address] documented as of this encounter Visit Diagnoses Diagnosis Screening for unspecified condition- Primary documented in this encounter Care Teams Acid Wash Operator Relationship Specialty Start Date End Date Napoleon Michele MD [address] [address] [email or web address] PCP - General 02/12/17 04/13/19 Shiloh Gauthier MD [address] [place] [address] PCP - General Family Medicine 04/14/19 06/20/20 Mailka James MD [address] [place] [address] [email or web address] PCP - General 06/21/20 12/03/20 Venancio Lomeli NP [address] [place] [address] PCP - General Family Medicine 12/04/20 02/19/21 Cooper Adam MD [address] [place] [address] PCP - General Family Medicine 02/20/21 Stephanie Andino DO [address] [place] [address] [email or web address] Primary Oncologist Hematology and Oncology 03/10/1704/23 Salvador Jenkins MD [address] [place] [address] [email or web address] Primary Oncologist Medical Oncology 04/24/20 Faye Davey CNP [address] [place] [address] [email or web address] Nurse Practitioner Medical Oncology 02/27/21 documented as of this encounter Additional Source Comments The information contained in this document represents components of the legal health record. It is not the complete legal health record.[facility]
--- OUTSIDE RECORDS SUMMARY | 2024-12-21 12:43 | XMS_ITS | Encounter Summary ---
Author Organization [facility] Address [address] [place] [address] [place] [address] Phone Care Team Providers Care Stack Supervisor Name Role Phone Napoleon Michele MD Primary Care Provider [phone] Stephanie Andino DO Unavailable [phone] Shiloh Gauthier MD Primary Care Provider Salvador Jenkins MD Unavailable [phone] Malika James MD Primary Care Provider [phone] Venancio Lomeli NP Primary Care Provider [phone] Cooper Adam MD Primary Care Provide r Faye aDvey CNP Unavailable Reason for Referral * MRI/CAT Scan - Closed Specialty Diagnoses / Procedures Referred By Contac t Referred To Contact Radiology Diagnoses Diverticulitis large intestine w/o perforation or abscess w/o bleeding Nausea Procedures CT Abdomen/Pelvis Vicki Tuttle PA Phone: tel: fax: Referral ID Status Reason Start Date Expiration Date Visits Re quested Visits Authorized [id number] Closed 04/07/2019 04/06/2020 1 1 Encounter Details Date Type Department Care Team (Latest Contact Info) Description 04/07/2019 Transcribe Orders [facility] Department [address] [place] [address] Vicki Tuttle PA [address] [place] [id number] Diverticulitis large intestine w/o perforation or abscess w/o bleeding (Primary Dx); Nausea Social History Tobacco [...] Info) Description 07/15/2024 Procedure Pass Echo Lab [address] [place] [address] 12/27/2024 2:20 PM EDT Infusion [facility] at [address] [address] 01/19/2025 11:45 AM EDT Office Visit [facility] [address] [place] [address] 3rd Floor, [address] [place] [address] Rashi Garcia MD [address] [place] [address], [address] [address] [email or web address] 01/24/2025 2:20 PM EDT Infusion [facility] at [address] [address] 02/21/2025 1:00 PM EDT Infusion [facility] at [address] [address] 07/04/2026 1:45 PM EST Appointment Echo Lab [address] [place] [address] Julián Galvez MD [address] [place] [address] [address] [place] [address] [email or web address] 07/18/2026 2:00 PM EDT Office Visit [facility] [address] [facility] 3rd Floor, [address] [place] [address] Julián Galvez MD [address] [facility], [address] [place] [address] [email or web address] documented as of this encounter Results * CT ABDOMEN/PELVIS WITH CONTRAST (04/14/2019 3:12 PM EST) Anatomical Region Laterality Modality Abdomen, Pelvis Computed Tomogra phy 04/14/2019 4:41 PM EST Impressions 04/14/2019 4:57 PM EST 1. Mild acute diverticulitis where there is a 4 cm segment of sigmoid colonic mild wall thickening with minimal localized fat stranding. No free air or fluid collection. 2. Supraumbilical and infraumbilical hernias, the largest one containing a herniated loop of small bowel without acute complication. No bowel obstruction or bowel wall thickening. TOTAL CTDIvol: 14.10 mGy POS - [id number] Narrative 04/14/2019 4:57 PM EST EXAM: CT ABDOMEN/PELVIS WITH CONTRAST HISTORY: LEFT lower quadrant pain since 02/27/2019. Treated for acute diverticulitis. TECHNIQUE: CT imaging of the ABDOMEN and PELVIS. Helical axial images obtained with reconstructed coronal and sagittal images. IV contrast: 100 mL Omnipaque 240 contrast. Oral contrast: 30 mL Gastrografin. Radiation dose control: Exam performed with automated exposure control or iterative reconstruction to minimize radiation exposure. COMPARISON: 12/09/[address] ABDOMEN/PELVIS FINDINGS: There is mild bilateral lung base hypoaeration. No lung base pleural effusions. Normal size of the imaged heart. The liver, spleen, biliary tree, pancreas, adrenal glands and kidneys are normal. There is no hydroureteronephrosis. Prior cholecystectomy. Normal caliber common bile duct. Normal diameter of the abdominal aorta. Calcification in the RIGHT retroperitoneum is external to the coursing ureter, is vascular. There is no bowel obstruction. The stomach and small bowel are normal. There are surgical sutures in the rectosigmoid colon at a site of anastomosis. Moderate volume of stool within the transverse colon. There is sigmoid colonic diverticulosis. There is a 4 cm segment of the sigmoid colon demonstrating mild wall thickening (7:54) and there is very minimal adjacent pericolonic fat stranding. There is no pericolonic fluid collection or free air. Findings have the appearance of mild acute diverticulitis. The cecum and appendix are positioned far posterior and inferior within the pelvis anterior to the rectum. No evidence for acute appendicitis. There is no free air, suspicious adenopathy or abdominopelvic ascites. The urinary bladder is decompressed. There is no pelvic mass. There is a tiny fat-containing supraumbilical hernia. There are 2 adjacent infraumbilical midline hernia defects, the more superior one which is smaller and contains only fat, the more inferior larger hernia defect measures 5 cm in transverse diameter with herniation of fat and loops of nondilated opacified small bowel. There is no acute fracture. No suspicious bone abnormality. Procedure Note Gretchen Barbour MD - 04/14/2019 EXAM: CT ABDOMEN/PELVIS WITH CONTRAST HISTORY: LEFT lower quadrant pain since 02/27/2019. Treated for acutediverticulitis. TECHNIQUE: CT imaging of the ABDOMEN and PELVIS. Helical axial images obtained withreconstructed coronal and sagittal images. IV contrast: 100 mL Omnipaque 240 contrast. Oral contrast: 30 mL Gastrografin. Radiation dose control: Exam performed with automated exposure control oriterative reconstruction to minimize radiation exposure. COMPARISON: 12/09/[address] ABDOMEN/PELVIS FINDINGS: There is mild bilateral lung base hypoaeration. No lung base pleuraleffusions. Normal size of the imaged heart. The liver, spleen, biliary tree, pancreas, adrenal glands and kidneys arenormal. There is no hydroureteronephrosis. Prior cholecystectomy. Normalcaliber common bile duct. Normal diameter of the abdominal aorta.Calcification in the RIGHT retroperitoneum is external to the coursingureter, is vascular. There is no bowel obstruction. The stomach and small bowel are normal.There are surgical sutures in the rectosigmoid colon at a site ofanastomosis. Moderate volume of stool within the transverse colon. Thereis sigmoid colonic diverticulosis. There is a 4 cm segment of the sigmoidcolon demonstrating mild wall thickening (7:54) and there is very minimaladjacent pericolonic fat stranding. There is no pericolonic fluidcollection or free air. Findings have the appearance of mild acutediverticulitis. The cecum and appendix are positioned far posterior andinferior within the pelvis anterior to the rectum. No evidence for acuteappendicitis. There is no free air, suspicious adenopathy or abdominopelvic ascites. The urinary bladder is decompressed. There is no pelvic mass. There is a tiny fat-containing supraumbilical hernia. There are 2 adjacentinfraumbilical midline hernia defects, the more superior one which issmaller and contains only fat, the more inferior larger hernia defectmeasures 5 cm in transverse diameter with herniation of fat and loops ofnondilated opacified small bowel. There is no acute fracture. No suspicious bone abnormality. IMPRESSION: 1. Mild acute diverticulitis where there is a 4 cm segment of sigmoidcolonic mild wall thickening with minimal localized fat stranding. No freeair or fluid collection. 2. Supraumbilical and infraumbilical hernias, the largest one containing aherniated loop of small bowel without acute complication. No bowelobstruction or bowel wall thickening. TOTAL CTDIvol: 14.10 mGy POS - [id number] Vicki GUERRA IMG CT ABD/PELVIS Final Res ult documented in this encounter Visit Diagnoses Diagnosis Diverticulitis large intestine w/o perforation or abscess w/o bleeding- Primary Nausea Nausea alone Diverticulitis large intestine w/o perforation or abscess w/o bleeding Nausea Nausea alone documented in this encounter Care Teams Stack Supervisor Relationship Specialty Start Date End Date Napoleon Michele MD [address] [address] [email or web address] PCP - General 02/12/17 04/13/19 Shiloh Gauthier MD [address] [place] [address] PCP - General Family Medicine 04/14/19 06/20/20 Malika James MD [address] [place] [address] [email or web address] PCP - General 06/21/20 12/03/20 Venancio Lomeli NP [address] [place] [address] PCP - General Family Medicine 12/04/20 02/19/21 Cooper Adam MD [address] [address] PCP - General Family Medicine 02/20/21 Stephanie Andino DO [address] [address] [email or web address] Primary Oncologist Hematology and Oncology 03/10/1704/23 Salvador Jenkins MD [address] [place] [address] Primary Oncologist Medical Oncology 04/24/20 Faye Davey CNP [address] [place] [address] Nurse Practitioner Medical Oncology 02/27/21 documented as of this encounter Additional Source Comments The information contained in this document represents components of the legal health record. It is not the complete legal health record.[facility]
--- OUTSIDE RECORDS SUMMARY | 2024-12-21 12:43 | XMS_ITS | Encounter Summary ---
Author Organization [facility] Address [address] [facility] [address] [place] [address] Phone Care Team Providers Care Curb Supervisor Name Role Phone Napoleon Michele MD Primary Care Provider [phone] Stephanie Andino DO Unavailable [phone] Shiloh Gauthier MD Primary Care Provider Salvador Jenkins MD Unavailable [phone] Malika James MD Primary Care Provider [phone] Venancio Lomeli NP Primary Care Provider [phone] Cooper Adam MD Primary Care Provide r Faye Davey CNP Unavailable Reason for Referral * MRI/CAT Scan - Closed Specialty Diagnoses / Procedures Referred By Contceline t Referred To Contact Radiology Diagnoses Weakness Procedures MRI Brain Bibi Tobias NP Phone: tel: fax: [email or web address] Referral ID Status Reason Start Date Expiration Date Visits Re quested Visits Authorized [id number] Closed 12/14/2018 12/14/2019 1 1 Encounter Details Date Type Department Care Team (Late Contact Info) Description 12/14/2018 Ancillary Orders [facility] Department [address] [place] [address] Bibi Tobias NP [address] [place] [phone] Weakness Social History Tobacco Use Types Packs/Day Years [...] Encounters Date Type Department Care Team (Late Contact Info) Description 07/15/2024 Procedure Pass Echo Lab [address] [place] [address] 12/27/2024 2:20 PM EDT Infusion [facility] at [address] [address] 01/19/2025 11:45 AM EDT Office Visit [facility] [address] [place] [address] 3rd Floor, [address] [place] [address] Rashi Garcia MD [address] [place] [address] 01/24/2025 2:20 PM EDT Infusion [facility] at [address] [address] 02/21/2025 1:00 PM EDT Infusion [facility] at [address] [address] 07/04/2026 1:45 PM EST Appointment Echo Lab [address] [place] [address] Julián Galvez MD [address] [place] [address], [address] [address] [email or web address] 07/18/2026 2:00 PM EDT Office Visit [facility] [address] [facility] 3rd Floor, [address] [place] [address] Julián Galvez MD [address] [facility], [address] [place] [address] documented as of this encounter Results * MRI BRAIN WITHOUT CONTRAST (12/23/2018 11:57 AM EDT) Anatomical Region Laterality Modality Head Magnetic Resonan ce 12/23/2018 12:3 0 PM EDT Impressions 12/23/2018 12:40 PM EDT Findings consistent with very mild chronic small vessel ischemia. No other significant abnormalities. POS - [id number] Narrative 12/23/2018 12:40 PM EDT HISTORY: Ataxia, falls and leg weakness. COMPARISON: CT brain 02/29/2008, report from MRI brain 11/16/2002. TECHNIQUE: Exam performed on a 1.5 Inga high-field MRI scanner. Axial T1, T2, T2*, T2 FLAIR and diffusion-weighted imaging with ADC map, sagittal T1 , T2 FLAIR and sequences were obtained. FINDINGS: No evidence of intracranial hemorrhage, hematomas or acute infarcts. No evidence of suspicious intracranial masses. There are roughly a dozen tiny scattered T2/T2 FLAIR hyperintensities within the deep and periventricular white matter bilaterally consistent with chronic small vessel ischemia. No signal abnormalities within the corpus callosum, brainstem or cerebellar hemispheres. The ventricles are normal in size and configuration. Basal cisterns appear. Normal flow-voids at the base of the skull. Minimal mucosal thickening in the left maxillary sinus. Mastoid air cells are clear. Procedure Note Nabor Dickerson MD - 12/23/2018 HISTORY: Ataxia, falls and leg weakness. COMPARISON: CT brain 02/29/2008, report from MRI brain 11/16/2002. TECHNIQUE: Exam performed on a 1.5 Inga high-field MRI scanner. AxialT1, T2, T2*, T2 FLAIR and diffusion-weighted imaging with ADC map,sagittal T1 , T2 FLAIR and sequences were obtained. FINDINGS: No evidence of intracranial hemorrhage, hematomas or acute infarcts. Noevidence of suspicious intracranial masses. There are roughly a dozen tiny scattered T2/T2 FLAIR hyperintensitieswithin the deep and periventricular white matter bilaterally consistentwith chronic small vessel ischemia. No signal abnormalities within thecorpus callosum, brainstem or cerebellar hemispheres. The ventricles are normal in size and configuration. Basal cisternsappear. Normal flow-voids at the base of the skull. Minimal mucosal thickening in the left maxillary sinus. Mastoid air cellsare clear. IMPRESSION: Findings consistent with very mild chronic small vessel ischemia. Noother significant abnormalities. POS - [id number] Bibi Tobias NP IMG MR HEAD/NECK Final Result documented in this encounter Visit Diagnoses Diagnosis Weakness Other malaise and fatigue Weakness Other malaise and fatigue documented in this encounter Care Teams Curb Supervisor Relationship Specialty Start Date End Date Napoleon Michele MD [address] [address] [email or web address] PCP - General 02/12/17 04/13/19 Shiloh Gauthier MD [address] [place] [address] PCP - General Family Medicine 04/14/19 06/20/20 Malika James MD [address] [address] [email or web address] PCP - General 06/21/20 12/03/20 Venancio Lomeli NP [address] [place] [address] PCP - General Family Medicine 12/04/20 02/19/21 Cooper Adam MD [address] [address] PCP - General Family Medicine 02/20/21 Stephanie Andino DO [address] [address] [email or web address] Primary Oncologist Hematology and Oncology 03/10/1704/23 Salvador Jenkins MD [address] [place] [address] Primary Oncologist Medical Oncology 04/24/20 Faye Davey CNP [address] [place] [address] Nurse Practitioner Medical Oncology 02/27/21 documented as of this encounter Additional Source Comments The information contained in this document represents components of the legal health record. It is not the complete legal health record.[facility]
--- OUTSIDE RECORDS SUMMARY | 2024-12-21 12:43 | XMS_ITS | Encounter Summary ---
Author Organization [facility] Address [address] [place] [address] [place] [address] Phone Care Team Providers Care Studio Owner Name Role Phone Napoleon Michele MD Primary Care Provider [phone] Stephanie Andino DO Unavailable [phone] Shiloh Gauthier MD Primary Care Provider Salvador Jenkins MD Unavailable [phone] Malika James MD Primary Care Provider [phone] Venancio Lomeli NP Primary Care Provider [phone] Cooper Adam MD Primary Care Provide r Faye Davey GUEST ADVISOR Unavailable Encounter Details Date Type Department Care Team (Latest Contact Info) Description 02/10/2019 Transcribe Orders Virtual Department [address] [place], [place] [phone] Sarthak Armstrong MD [address] [place] [address], [address] [place], [place] [phone] [email or web address] TIA (transient ischemic attack) (Primary Dx) Social History Tobacco Use Types [...] Info) Description 07/15/2024 Procedure Pass Echo Lab [address] [place] [address] 12/27/2024 2:20 PM EDT Infusion [facility] at [address] [address] 01/19/2025 11:45 AM EDT Office Visit [facility] [address] [place] [address] 3rd [facility], [address] [address] Rashi Garcia MD [address] [place] [address] 01/24/2025 2:20 PM EDT Infusion [facility] at [address] [address] 02/21/2025 1:00 PM EDT Infusion [facility] at [address] [address] 07/04/2026 1:45 PM EST Appointment Echo Lab [address] [place] [address] Julián Galvez MD [address] [place] [address], [address] [address] 07/18/2026 2:00 PM EDT Office Visit [facility] [address] [place] [address] 3rd [facility], [address] [address] Julián Galvez MD [address] [place] [address] documented as of this encounter Results * US Carotid Duplex (Bilateral) (02/25/2019 1:11 PM EDT) Anatomical Region Laterality Modality Heart, Thoracic Vasculature, Neck Ultrasound 02/25/2019 2:15 PM EDT Impressions 02/25/2019 2:20 PM EDT Normal extracranial carotid artery ultrasound. No focal plaques or hemodynamically significant carotid arterial stenosis. Normal antegrade blood flow in the vertebral arteries. POS- [id number] Narrative 02/25/2019 2:20 PM EDT EXAM: US CAROTID DUPLEX (BILATERAL) HISTORY: TIA TECHNIQUE: Grayscale, color Doppler and spectral Doppler ultrasound imaging of the extracranial carotid arterial system. COMPARISON: None. FINDINGS: RIGHT: Carotid artery morphology: No plaque identified. Peak systolic velocity in the right ICA is 98 cm/sec. Peak systolic velocity in the right CCA is 116 cm/sec. ICA/CCA ratio is 0.84. No hemodynamically significant stenosis. Vertebral artery: Normal antegrade blood flow. LEFT: Carotid artery morphology: No plaque identified. Peak systolic velocity in the left ICA is 81 cm/sec. Peak systolic velocity in the left CCA is 90 cm/sec. ICA/CCA ratio is 0.90. No hemodynamically significant stenosis. Vertebral artery: Normal antegrade blood flow. Any stenosis measurement is relative to the distal ICA diameters. Procedure Note Gretchen Barbour MD - 02/25/2019 EXAM: US CAROTID DUPLEX (BILATERAL) HISTORY: TIA TECHNIQUE: Grayscale, color Doppler and spectral Doppler ultrasoundimaging of the extracranial carotid arterial system. COMPARISON: None. FINDINGS: RIGHT: Carotid artery morphology: No plaque identified. Peak systolic velocity in the right ICA is 98 cm/sec. Peak systolicvelocity in the right CCA is 116 cm/sec. ICA/CCA ratio is 0.84. Nohemodynamically significant stenosis. Vertebral artery: Normal antegrade blood flow. LEFT: Carotid artery morphology: No plaque identified. Peak systolic velocity in the left ICA is 81 cm/sec. Peak systolicvelocity in the left CCA is 90 cm/sec. ICA/CCA ratio is 0.90. Nohemodynamically significant stenosis. Vertebral artery: Normal antegrade blood flow. Any stenosis measurement is relative to the distal ICA diameters. IMPRESSION: Normal extracranial carotid artery ultrasound. No focal plaques or hemodynamically significant carotid arterialstenosis. Normal antegrade blood flow in the vertebral arteries. POS- [id number] us Sarthak Armstrong MD CV US NEUROVASCULAR Final Re sult documented in this encounter Visit Diagnoses Diagnosis TIA (transient ischemic attack)- Primary Unspecified transient cerebral ischemia TIA (transient ischemic attack) Unspecified transient cerebral ischemia documented in this encounter Care Teams Studio Owner Relationship Specialty Start Date End Date Napoleon Michele MD [address] [place] [address] [email or web address] PCP - General 02/12/17 04/13/19 Shiloh Gauthier MD [address] [place] [address] PCP - General Family Medicine 04/14/19 06/20/20 Malika James MD [address] [place] [address] [email or web address] PCP - General 06/21/20 12/03/20 Venancio Lomeli NP [address] [place] [address] PCP - General Family Medicine 12/04/20 02/19/21 Cooper Adam MD [address] [place] [address] PCP - General Family Medicine 02/20/21 Stephanie Andino DO [address] [place] [address] [email or web address] Primary Oncologist Hematology and Oncology 03/10/1704/23 Salvador Jenkins MD [address] [place] [address] Primary Oncologist Medical Oncology 04/24/20 Faye Davey CNP [address] [place] [address] Nurse Practitioner Medical Oncology 02/27/21 documented as of this encounter Additional Source Comments The information contained in this document represents components of the legal health record. It is not the complete legal health record.[facility]
--- OUTSIDE RECORDS SUMMARY | 2024-12-21 12:43 | XMS_ITS | Encounter Summary ---
Author Organization [facility] Address [address] [place] [address] [place] [address] Phone Care Team Providers Care Grades 6 Through 8 Teacher Name Role Phone Stephanie Andino DO Unavailable Shiloh Gauthier MD Primary Care Provider Salvador Jenkins MD Unavailable [phone] Malika James MD Primary Care Provider [phone] Venancio Lomeli AEROSOL SUPERVISOR Primary Care Provider [phone] Cooper Adam MD Primary Care Provide r Faye Davey CNP Unavailable Encounter Details Date Type Department Care Team (Late st Contact Info) Description 05/16/2019 Procedure Pass [facility] Admitting Dept Virtual Department 30 [place] [address] Social History Tobacco Use Types Packs/Day Years [...] Info) Description 07/15/2024 Procedure Pass Echo Lab [address] [address] 12/27/2024 2:20 PM EDT Infusion [facility] at [address] [address] 01/19/2025 11:45 AM EDT Office Visit [facility] [address], [address] [address] Rashi Garcia MD [address] [place] [address] 01/24/2025 2:20 PM EDT Infusion [facility] Center at [address] [address] 02/21/2025 1:00 PM EDT Infusion [facility] at [address] [address] 07/04/2026 1:45 PM EST Appointment Echo Lab [address] [address] Julián Galvez MD [address] [place] [address] 07/18/2026 2:00 PM EDT Office Visit [facility] [address] [place] [address], [address] [address] Julián Galvez MD [address] [place] [address] documented as of this encounter Visit Diagnoses Not on filedocumented in this encounter Care Teams Grades 6 Through 8 Teacher Relationship Specialty Start Date End Date Shiloh Gauthier MD [facility] [place] [address] PCP - General Family Medicine 04/14/19 06/20/20 Malika James MD [address] [facility] [address] [place] [address] [email or web address] PCP - General 06/21/20 12/03/20 Venancio Lomeli NP [address] [place] [address] PCP - General Family Medicine 12/04/20 02/19/21 Cooper Adam MD [address] [address] PCP - General Family Medicine 02/20/21 Stephanie Andino DO [email or web address] Primary Oncologist Hematology and Oncology 03/10/1704/23 Salvador Jenkins MD [address] [place] [address] Primary Oncologist Medical Oncology 04/24/20 Faye Davey CNP [address] [place] [address] Nurse Practitioner Medical Oncology 02/27/21 documented as of this encounter Additional Source Comments The information contained in this document represents components of the legal health record. It is not the complete legal health record.[facility]
--- OUTSIDE RECORDS SUMMARY | 2024-12-21 12:43 | XMS_ITS | Encounter Summary ---
Author Organization [facility] Address [address] [place] [address] [place] [address] Phone Care Team Providers Care Computator Name Role Phone Napoleon Michele MD Primary Care Provider [phone] Stephanie Andino DO Unavailable [phone] Shiloh Gauthier MD Primary Care Provider Salvador Jenkins MD Unavailable [phone] Malika James MD Primary Care Provider [phone] Venancio Lomeli NP Primary Care Provider [phone] Cooper Adam MD Primary Care Provide r Faye Davey CNP Unavailable Encounter Details Date Type Department Care Team (Late st Contact Info) Description 09/13/2018 Ancillary Orders Virtual Department 30 [place] [address] Bibi Tobias NP [address] [place] [phone] [email or web address] Bilateral lower extremity pain; Tenderness in limb Social History Tobacco Use Types Packs/Day Years [...] Info) Description 07/15/2024 Procedure Pass Echo Lab [address] [place] [address] 12/27/2024 2:20 PM EDT Infusion [facility] at [address] [address] 01/19/2025 11:45 AM EDT Office Visit [facility] [address] [place] [address] [place] [address], [address] [place] [address] Rashi Garcia MD [address] [place] [address] 01/24/2025 2:20 PM EDT Infusion [facility] [place] at [address] [address] 02/21/2025 1:00 PM EDT Infusion [facility] at [address] [address] 07/04/2026 1:45 PM EST Appointment Echo Lab [address] [place] [address] Julián Galvez MD [address] [place] [address], [address] [address] 07/18/2026 2:00 PM EDT Office Visit [facility] [address] [place] [address] [place] [address], [address] [place] [address] Julián Galvez MD [address] [place] [address], [address] [address] documented as of this encounter Results * US Lower Extremity Veins Duplex (Bilateral) (09/14/2018 2:27 PM EDT) Anatomical Region Laterality Modality Ultrasound 09/14/2018 4:52 PM EDT Impressions 09/14/2018 4:52 PM EDT Normal bilateral lower extremity venous ultrasound. No acute deep venous thrombosis. POS - [id number] Narrative 09/14/2018 4:52 PM EDT US LOWER EXTREMITY VEINS DUPLEX (BILATERAL) HISTORY: Bilateral lower extremity pain. COMPARISON: None. TECHNIQUE: Grayscale, color Doppler and spectral Doppler ultrasound imaging of the deep veins of the right and left lower extremities. FINDINGS: The right and left common femoral, saphenofemoral junctions, femoral and popliteal veins compress normally. There are no abnormal intraluminal echoes. Color and spectral Doppler waveforms are normal. Visualized deep calf veins compress normally and demonstrate normal Doppler flow. There is normal augmentation with maneuvers. There are no popliteal fossa fluid collections. Procedure Note Gretchen Barbour MD - 09/14/2018 US LOWER EXTREMITY VEINS DUPLEX (BILATERAL) HISTORY: Bilateral lower extremity pain. COMPARISON: None. TECHNIQUE: Grayscale, color Doppler and spectral Doppler ultrasoundimaging of the deep veins of the right and left lower extremities. FINDINGS: The right and left common femoral, saphenofemoral junctions, femoral andpopliteal veins compress normally. There are no abnormal intraluminalechoes. Color and spectral Doppler waveforms are normal. Visualized deepcalf veins compress normally and demonstrate normal Doppler flow. There isnormal augmentation with maneuvers. There are no popliteal fossa fluid collections. IMPRESSION: Normal bilateral lower extremity venous ultrasound. No acute deep venousthrombosis. POS - [id number] Bibi Tobias NP US VASCULAR Final Result documented in this encounter Visit Diagnoses Diagnosis Bilateral lower extremity pain Tenderness in limb Bilateral lower extremity pain Tenderness in limb documented in this encounter Care Teams Computator Relationship Specialty Start Date End Date Napoleon Michele MD [address] [address] [email or web address] PCP - General 02/12/17 04/13/19 Shiloh Gauthier MD [address] [place] [address] PCP - General Family Medicine 04/14/19 06/20/20 Malika James MD [address] [place] [address] [email or web address] PCP - General 06/21/20 12/03/20 Venancio Lomeli NP [address] [place] [address] PCP - General Family Medicine 12/04/20 02/19/21 Cooper Adam MD [address] [address] PCP - General Family Medicine 02/20/21 Stephanie Andino DO [address] [address] [email or web address] Primary Oncologist Hematology and Oncology 03/10/1704/23 Salvador Jenkins MD 30 [place] [address] Primary Oncologist Medical Oncology 04/24/20 Faye Davey CNP 30 [place] [address] Nurse Practitioner Medical Oncology 02/27/21 documented as of this encounter Additional Source Comments The information contained in this document represents components of the legal health record. It is not the complete legal health record.[facility]
--- OUTSIDE RECORDS SUMMARY | 2024-12-21 12:43 | XMS_ITS | Encounter Summary ---
Author Organization [facility] Address [address] [place] [address] [place] [address] Phone Care Team Providers Care Systems Design Engineer Name Role Phone Napoleon Michele MD Primary Care Provider [phone] Stephanie Andino DO Unavailable [phone] Shiloh Gauthier MD Primary Care Provider Salvador Jenkins MD Unavailable [phone] Malika James MD Primary Care Provider [phone] Venancio Lomeli NP Primary Care Provider [phone] Cooper Adam MD Primary Care Provide r Faye Davey CNP Unavailable Encounter Details Date Type Department Care Team (Late st Contact Info) Description 01/21/2018 Procedure Pass [facility], [facility] - [address] [place] [address] Social History Tobacco Use Types Packs/Day Years [...] Info) Description 07/15/2024 Procedure Pass Echo Lab [address] [address] 12/27/2024 2:20 PM EDT Infusion [facility] at [address] [address] 01/19/2025 11:45 AM EDT Office Visit [facility] [address], [address] [address] Rashi Garcia MD [address] [place] [address] 01/24/2025 2:20 PM EDT Infusion [facility] at [address] [address] 02/21/2025 1:00 PM EDT Infusion [facility] at [address] [address] 07/04/2026 1:45 PM EST Appointment Echo Lab [address] [address] Julián Galvez MD [address] [place] [address] 07/18/2026 2:00 PM EDT Office Visit [facility] [address], [address] [address] Julián Galvez MD [address] [place] [address] documented as of this encounter Visit Diagnoses Not on filedocumented in this encounter Care Teams Systems Design Engineer Relationship Specialty Start Date End Date Napoleon Michele MD [address] [place] [address] PCP - General 02/12/17 04/13/19 Shiloh Gauthier MD [address] [place] [address] PCP - General Family Medicine 04/14/19 06/20/20 Malika James MD [address] [address] [email or web address] PCP - General 06/21/20 12/03/20 Venancio Lomeli NP [address] [place] [address] PCP - General Family Medicine 12/04/20 02/19/21 Cooper Adam MD [address] [place] [address] PCP - General Family Medicine 02/20/21 Stephanie Andino DO [address] [address] [email or web address] Primary Oncologist Hematology and Oncology 03/10/1704/23 Salvador Jenkins MD 30 [place] [address] Primary Oncologist Medical Oncology 04/24/20 Faye Davey CNP 30 [place] [address] Nurse Practitioner Medical Oncology 02/27/21 documented as of this encounter Additional Source Comments The information contained in this document represents components of the legal health record. It is not the complete legal health record.[facility]
--- OUTSIDE RECORDS SUMMARY | 2024-12-21 12:43 | XMS_ITS | Encounter Summary ---
Author Organization [facility] Address [address] [place] [address] [place] [address] Phone Care Team Providers Care Diamond Mounter Name Role Phone Napoleon Michele MD Primary Care Provider [phone] Stephanie Andino DO Unavailable [phone] Shiloh Gauthier MD Primary Care Provider Salvador Jenkins MD Unavailable [phone] Malika James MD Primary Care Provider [phone] Venancio Lomeli NP Primary Care Provider [phone] Cooper Adam MD Primary Care Provide r Faye Davey CNP Unavailable Encounter Details Date Type Department Care Team (Late st Contact Info) Description 12/14/2018 Procedure Pass [facility], [facility] [address] [place], [place] [id number] Social History Tobacco Use Types Packs/Day Years [...] Info) Description 07/15/2024 Procedure Pass Echo Lab [address] [address] 12/27/2024 2:20 PM EDT Infusion [facility] [place] at [address] [address] 01/19/2025 11:45 AM EDT Office Visit [facility] [address] 3rd [facility], [address] [address] Rashi Garcia MD [address] [place] [address] 01/24/2025 2:20 PM EDT Infusion [facility] at [address] [address] 02/21/2025 1:00 PM EDT Infusion [facility] at [address] [address] 07/04/2026 1:45 PM EST Appointment Echo Lab [address] [address] Julián Galvez MD [address] [place] [address] 07/18/2026 2:00 PM EDT Office Visit [facility] [address] 3[address] [facility], [address] [address] Julián Galvez MD [address] [place] [address] documented as of this encounter Visit Diagnoses Not on filedocumented in this encounter Care Teams Diamond Mounter Relationship Specialty Start Date End Date Napoleon Michele MD [address] [place] [address] [email or web address] PCP - General 02/12/17 04/13/19 Shiloh Gauthier MD [address] [place] [address] PCP - General Family Medicine 04/14/19 06/20/20 Malika James MD [address] [place] [address] [email or web address] PCP - General 06/21/20 12/03/20 Venancio Lomeli NP [address] [place] [address] PCP - General Family Medicine 12/04/20 02/19/21 Cooper Adam MD [address] [address] PCP - General Family Medicine 02/20/21 Stephanie Andino DO [address] [place] [address] [email or web address] Primary Oncologist Hematology and Oncology 03/10/1704/23 Salvador Jenkins MD 30 [place] [address] [email or web address] Primary Oncologist Medical Oncology 04/24/20 Faye Davey CNP [address] [place] [address] [email or web address] Nurse Practitioner Medical Oncology 02/27/21 documented as of this encounter Additional Source Comments The information contained in this document represents components of the legal health record. It is not the complete legal health record.[facility]
--- OUTSIDE RECORDS SUMMARY | 2024-12-21 12:43 | XMS_ITS | Encounter Summary ---
Author Organization [facility] Address [address] [place] [address] [place] [address] Phone Care Team Providers Care Oil Tanker Captain Name Role Phone Napoleon Michele MD Primary Care Provider [phone] Stephanie Andino DO Unavailable [phone] Shiloh Gauthier MD Primary Care Provider Salvador Jenkins MD Unavailable [phone] Malika James MD Primary Care Provider [phone] Venancio Lomeli NP Primary Care Provider [phone] Cooper Adam MD Primary Care Provide r Faye Davey CNP Unavailable Encounter Details Date Type Department Care Team (Latest Contact Info) Description 02/03/2018 Ancillary Orders Virtual Department 30 [place] [address] Bibi Tobias NP [address] [place] [phone] [email or web address] Social History Tobacco Use Types [...] Description 07/15/2024 Procedure Pass Echo Lab [address] [place] [address] 12/27/2024 2:20 PM EDT Infusion [facility] [place] [facility] at [address] [address] 01/19/2025 11:45 AM EDT Office Visit [facility] [address] [place] [address] 3rd [facility], [address] [address] Rashi Garcia MD [address] [place] [address] 01/24/2025 2:20 PM EDT Infusion [facility] [place] [facility] at [address] [address] 02/21/2025 1:00 PM EDT Infusion [facility] at [address] [address] 07/04/2026 1:45 PM EST Appointment Echo Lab [address] [address] Julián Galvez MD [address] [place] [address] 07/18/2026 2:00 PM EDT Office Visit [facility] [address] [place] [address] 3rd [facility], [address] [address] Julián Galvez MD [address] [place] [address] documented as of this encounter Visit Diagnoses Diagnosis Lumbar radiculopathy Thoracic or lumbosacral neuritis or radiculitis, unspecified documented in this encounter Care Teams Oil Tanker Captain Relationship Specialty Start Date End Date Napoleon Michele MD [address] [address] [email or web address] PCP - General 02/12/17 04/13/19 Shiloh Gauthier MD [address] [place] [address] PCP - General Family Medicine 04/14/19 06/20/20 Malika James MD [address] [place] [address] [email or web address] PCP - General 06/21/20 12/03/20 Venancio Lomeli NP [facility] [place] [address] PCP - General Family Medicine 12/04/20 02/19/21 Cooper Adam MD [address] [place] [address] PCP - General Family Medicine 02/20/21 Stephanie Andino DO [address] [place] [address] [email or web address] Primary Oncologist Hematology and Oncology 03/10/1704/23 Salvador Jenkins MD 30 [place] [address] [email or web address] Primary Oncologist Medical Oncology 04/24/20 Faye Davey CNP [address] [place] [address] [email or web address] Nurse Practitioner Medical Oncology 02/27/21 documented as of this encounter Additional Source Comments The information contained in this document represents components of the legal health record. It is not the complete legal health record.[facility]
--- OUTSIDE RECORDS SUMMARY | 2024-12-21 12:43 | XMS_ITS | Encounter Summary ---
Author Organization [facility] Address [address] [place] [address] [place] [address] Phone Care Team Providers Care Senior Cost Analyst Name Role Phone Napoleon Michele MD Primary Care Provider [phone] Stephanie Andino DO Unavailable Shiloh Gauthier MD Primary Care Provider Salvador Jenkins MD Unavailable [phone] Malika James MD Primary Care Provider [phone] Venancio Lomeli NP Primary Care Provider [phone] Cooper Adam MD Primary Care Provide r Faye Davey CNP Unavailable Encounter Details Date Type Department Care Team (Latest Contact Info) Description 03/14/2019 Transcribe Orders [facility] [address] [id number] Vicki Tuttle PA [address] [place], [place] [address] Diverticulitis of large intestine without perforation or [...] Info) Description 07/15/2024 Procedure Pass Echo Lab [address] [place] [address] 12/27/2024 2:20 PM EDT Infusion [facility] [place] [facility] at [address] [address] 01/19/2025 11:45 AM EDT Office Visit [facility] [address] [place] [address] 3rd [facility], [address] [address] Rashi Garcia MD [address] [place] [address] 01/24/2025 2:[address] [facility] at [address] [address] 02/21/2025 1:00 PM EDT Infusion [facility] at [address] [address] 07/04/2026 1:45 PM EST Appointment Echo Lab [address] [place] [address] Julián Galvez MD [address] [place] [address], [address] [address] 07/18/2026 2:00 PM EDT Office Visit [facility] [address] [place] [address] 3rd Floor, [address] [address] Julián Galvez MD [address] [place] [address] documented as of this encounter Results * Comprehensive metabolic panel (03/14/2019 11:18 AM EST) SODIUM 138 133 - 146 mmol/L [facility] POTASSIUM 4.6 3.3 - 5.1 mmol/L [facility] CHLORIDE 100 96 - 108 mmol/L [facility] CO2 24 21 - 35 mmol/L [facility] BUN 18 6 - 19 mg/dL [facility] CREATININE 0.80 0.5 - 1.5 mg/dL [facility] GLUCOSE 88 70 - 99 mg/dL [facility] ALBUMIN 4.3 3.9 - 4.8 g/dL [facility] TOTAL PROTEIN 7.8 6.5 - 8.0 g/dL [facility] CALCIUM 9.8 8.4 - 10.3 mg/dL [facility] ALKALINE PHOSPHATASE 79 39 - 117 U/L [facility] TOTAL BILIRUBIN 0.3 0.0 - 1.2 mg/dL [facility] AST 19 0 - 37 U/L [facility] ALT 13 0 - 40 U/L [facility] GLOBULIN 3.5 1 - 4.8 g/dL [facility] EGFR 82 >59 mL/min/1.7 3m2 [facility] Comment:If patient is black, multiply result by 1.159. Estimated glomerular filtration rate calculated using the CKD-EPI equation. ANION GAP 19 10 - 20 mmol/L [facility] Blood 03/14/2019 11:1 8 AM EST 03/14/2019 11:24 AM EST us Vicki [facility] BLOOD ORDERABLES Final Result [facility] [address] [place] [address] * (ABNORMAL) CBC and differential (03/14/2019 11:18 AM EST) WBC 13.11(H) 3.40 - 11.20 K/uL [facility] RBC 3.65(L) 3.80 - 4.80 M/uL [facility] HGB 12.1 12.0 - 15.0 g/dL [facility] HCT 35.6(L) 36.0 - 46.0 % [facility] PLT 371 130 - 400 K/uL [facility] MCV 97.5 79.0 - 98.0 fL [facility] MCH 33.2 27.0 - 34.8 pg [facility] MCHC 34.0 31.5 - 36.0 g/dL [facility] RDW 12.6 10.8 - 14.6 % [facility] MPV 11.0 9.4 - 12.4 fl [facility] NRBC 0.00 0.00 /100 WBCs [facility] ABSOLUTE NRBC 0.00 0.00 K/uL [facility] DIFF METHOD Auto [facility] NEUTS 68.2 45.30 - 77.70 % [facility] LYMPHS 19.2 12.30 - 39.70 % [facility] MONOS 5.0 4.10 - 12.80 % [facility] EOS 6.5 0 - 7.2 % [facility] BASOS 0.7 0 - 2.80 % [facility] Granulocytes, immature (%) 0.4 0.0 - 0.9 % [facility] ABSOLUTE NEUTS 8.95(H) 1.40 - 7.70 K/uL [facility] ABSOLUTE LYMPHS 2.52 0.60 - 3.20 K/uL [facility] ABSOLUTE MONOS 0.65(H) 0.11 - 0.59 K/uL [facility] ABSOLUTE EOS 0.85(H) 0.01 - 0.50 K/uL [facility] ABSOLUTE BASOS 0.09(H) 0.00 - 0.08 K/uL [facility] Granulocytes, immature 0.05 0.00 - 0.05 K/uL [facility] Blood 03/14/2019 11:1 8 AM EST 03/14/2019 11:24 AM EST us Vicki [facility] BLOOD ORDERABLES Final Result [facility] [address] [place] [address] documented in this encounter Visit Diagnoses Diagnosis Diverticulitis of large intestine without perforation or abscess without bleeding- Primary Nausea Nausea alone documented in this encounter Care Teams Senior Cost Analyst Relationship Specialty Start Date End Date Napoleon Michele MD [address] [address] [email or web address] PCP - General 02/12/17 04/13/19 Shiloh Gauthier MD [address] [address] PCP - General Family Medicine 04/14/19 06/20/20 Malika James MD [address] [place] [address] [email or web address] PCP - General 06/21/20 12/03/20 Venancio Lomeli NP [facility] [place] [address] PCP - General Family Medicine 12/04/20 02/19/21 Cooper Adam MD [address] [place] [address] PCP - General Family Medicine 02/20/21 Stephanie Andino DO [address] [place] [address] [email or web address] Primary Oncologist Hematology and Oncology 03/10/1704/23 Salvador Jenkins MD [address] [place] [address] [email or web address] Primary Oncologist Medical Oncology 04/24/20 Faye Davey CNP [address] [place] [address] [email or web address] Nurse Practitioner Medical Oncology 02/27/21 documented as of this encounter Additional Source Comments The information contained in this document represents components of the legal health record. It is not the complete legal health record.[facility]
--- OUTSIDE RECORDS SUMMARY | 2024-12-21 12:43 | XMS_ITS | Encounter Summary ---
Author Organization [facility] Address [address] [place] [address] [place] [address] Phone Care Team Providers Care Radiology Orderly Name Role Phone Napoleon Michele MD Primary Care Provider [phone] Stephanie Andino DO Unavailable [phone] Shiloh Gauthier MD Primary Care Provider Salvador Jenkins MD Unavailable [phone] Malika James MD Primary Care Provider [phone] Venancio Lomeli NP Primary Care Provider [phone] Cooper Adam MD Primary Care Provide r Faye Davey CNP Unavailable Encounter Details Date Type Department Care Team (Latest Contact Info) Description 01/18/2018 Transcribe Orders [facility] Laboratory [address] [place] [address] Bibi Tobias NP [address] [place] [phone] [email or web address] Chronic pain syndrome (Primary Dx) Social History Tobacco Use Types [...] Description 07/15/2024 Procedure Pass Echo Lab [address] [place] [address] 12/27/2024 2:20 PM EDT Infusion [facility] at [address] [address] 01/19/2025 11:45 AM EDT Office Visit [facility] [address] [place] [address] 3rd [facility], [address] [place] [address] Rashi Garcia MD [address] [place] [address] 01/24/2025 2:20 PM EDT Infusion [facility] at [address] [address] 02/21/2025 1:00 PM EDT Infusion [facility] at [address] [address] 07/04/2026 1:45 PM EST Appointment Echo Lab [address] [place] [address] Julián Galvez MD [address] [place] [address], [address] [address] 07/18/2026 2:00 PM EDT Office Visit [facility] [address] [place] [address] 3rd [facility], [address] [place] [address] Julián Galvez MD [address] [place] [address], [address] [address] documented as of this encounter Results * (ABNORMAL) C-reactive protein, high sensitivity (01/18/2018 11:58 AM EDT) CRP, HIGH SENSITIVITY 7.8(H) 0.0 - 5.0 mg/L [facility] Comment: Interpretation: hsCRP level (mg/L) Relative Risk <1.0 Low 1.0 - 3.0 Average >3.0 High Neonates (0-3 weeks): 0.1 - 4.1 mg/L Children (2 months - 15 years): 0.1 - 2.8 mg/L Blood 01/18/2018 11:5 8 AM EDT 01/18/2018 12:03 PM EDT us Bibi Tobias NP LAB BLOOD ORDERABLES Final Resul t Performing Organization Address [facility] Co de Phone Number [address] [address] * CCP IgG antibodies (01/18/2018 11:58 AM EDT) Pathologist [facility] CCP AB, S <15.6 <20.0 (Negative) U [facility] DPT OF LAB MED AND PAT+ Blood 01/18/2018 11:5 8 AM EDT 01/18/2018 12:03 PM EDT us Bibi Tobias NP LAB BLOOD ORDERABLES Final Resul t Performing Organization Address [facility]/ZIP Co de Phone Number [facility] DPT OF LAB MED AND PAT+ [address] [place] [address] * Rheumatoid factor (01/18/2018 11:58 AM EDT) Pathologist [facility] RHEUMATOID FACTOR <10.0 0.0 - 14.0 IU/ml [facility] Blood 01/18/2018 11:5 8 AM EDT 01/18/2018 12:03 PM EDT us Bibi Tobias NP LAB BLOOD ORDERABLES Final Resul t Performing Organization Address [facility]/ZIP Co de Phone Number [address] [address] * Antinuclear antibody (JESSICA) (01/18/2018 11:58 AM EDT) JESSICA SCREEN ON HEP 2 Negative Negative [facility] Blood 01/18/2018 11:5 8 AM EDT 01/18/2018 12:03 PM EDT us Bibi Tobias NP LAB BLOOD ORDERABLES Final Resul t [address] [address] * (ABNORMAL) Comprehensive metabolic panel (01/18/2018 11:58 AM EDT) SODIUM 145 133 - 146 mmol/L [facility] POTASSIUM 4.1 3.3 - 5.1 mmol/L [facility] CHLORIDE 104 96 - 108 mmol/L [facility] CO2 24 21 - 35 mmol/L [facility] BUN 15 6 - 19 mg/dL [facility] CREATININE 0.90 0.5 - 1.5 mg/dL [facility] GLUCOSE 132(H) 70 - 99 mg/dL [facility] ALBUMIN 4.1 3.9 - 4.8 g/dL [facility] TOTAL PROTEIN 7.3 6.5 - 8.0 g/dL [facility] CALCIUM 9.6 8.4 - 10.3 mg/dL [facility] ALKALINE PHOSPHATASE 107 39 - 117 U/L [facility] TOTAL BILIRUBIN 0.3 0.0 - 1.2 mg/dL [facility] AST 11 0 - 37 U/L [facility] ALT 11 0 - 40 U/L [facility] GLOBULIN 3.2 1 - 4.8 g/dL [facility] EGFR 71 >59 mL/min/1.7 3m2 [facility] Comment:If patient is black, multiply result by 1.159. Estimated glomerular filtration rate calculated using the CKD-EPI equation. ANION GAP 21(H) 10 - 20 mmol/L [facility] Blood 01/18/2018 11:5 8 AM EDT 01/18/2018 12:03 PM EDT us Bibi J Micheline [employer] LAB BLOOD ORDERABLES Final Resul t Performing Organization Address City/[facility]/ZIP Co de Phone Number [address] [address] * Sedimentation rate (ESR) (01/18/2018 11:58 AM EDT) ESR 16 0 - 30 mm/h [facility] Blood 01/18/2018 11:5 8 AM EDT 01/18/2018 12:03 PM EDT us Bibi Tobias NP LAB BLOOD ORDERABLES Final Resul t Performing Organization Address [facility] Co de Phone Number [address] [address] * (ABNORMAL) CBC and differential (01/18/2018 11:58 AM EDT) WBC 15.77(H) 3.40 - 11.20 K/uL [facility] RBC 3.94 3.80 - 4.80 M/uL [facility] HGB 12.2 12.0 - 15.0 g/dL [facility] HCT 36.6 36.0 - 46.0 % [facility] PLT 371 130 - 400 K/uL [facility] MCV 92.9 79.0 - 98.0 [facility] MCH 31.0 27.0 - 34.8 pg [facility] MCHC 33.3 31.5 - 36.0 g/dL [facility] RDW 12.2 10.8 - 14.6 % [facility] MPV 10.6 9.4 - 12.4 fl [facility] NRBC 0.00 /100 WBCs [facility] ABSOLUTE NRBC 0.00 K/uL [facility] DIFF METHOD Auto [facility] NEUTS 76.8 45.30 - 77.70 % [facility] LYMPHS 15.2 12.30 - 39.70 % [facility] MONOS 5.4 4.10 - 12.80 % [facility] EOS 1.5 0 - 7.2 % [facility] BASOS 0.5 0 - 2.80 % [facility] Granulocytes, immature (%) 0.6 0.0 - 0.9 % [facility] ABSOLUTE NEUTS 12.12(H) 1.40 - 7.70 K/uL [facility] ABSOLUTE LYMPHS 2.40 0.60 - 3.20 K/uL [facility] ABSOLUTE MONOS 0.85(H) 0.11 - 0.59 K/uL [facility] ABSOLUTE EOS 0.23 0.01 - 0.50 K/uL [facility] ABSOLUTE BASOS 0.08 0.00 - 0.08 K/uL [facility] Granulocytes, immature 0.09(H) 0.00 - 0.05 K/uL [facility] Blood 01/18/2018 11:5 8 AM EDT 01/18/2018 12:03 PM EDT us Bibi Tobias [employer] LAB BLOOD ORDERABLES Final Resul t Performing Organization Address City/State/[facility] Co de Phone Number [facility] [address] [place] [address] documented in this encounter Visit Diagnoses Diagnosis Chronic pain syndrome- Primary documented in this encounter Care Teams Radiology Orderly Relationship Specialty Start Date End Date Napoleon Michele MD [address] [place] [address] [email or web address] PCP - General 02/12/17 04/13/19 Shiloh Gauthier MD [address] [address] PCP - General Family Medicine 04/14/19 06/20/20 Malika James MD [address] [address] [email or web address] PCP - General 06/21/20 12/03/20 Venancio Lomeli NP [address] [place] [address] PCP - General Family Medicine 12/04/20 02/19/21 Cooper Adam MD [address] [address] PCP - General Family Medicine 02/20/21 Stephanie Andino DO [address] [address] [email or web address] Primary Oncologist Hematology and Oncology 03/10/1704/23 Salvador Jenkins MD [address] [place] [address] Primary Oncologist Medical Oncology 04/24/20 Faye Davey CNP [address] [place] [address] Nurse Practitioner Medical Oncology 02/27/21 documented as of this encounter Additional Source Comments The information contained in this document represents components of the legal health record. It is not the complete legal health record.[facility]
--- OUTSIDE RECORDS SUMMARY | 2024-12-21 12:44 | XMS_ITS | Encounter Summary ---
Author Organization [facility] Address [address] [place] [address] Phone Care Team Providers Care Restaurant Line Server Name Role Phone Salvador Jenkins MD Unavailable [phone] Cooper Adam MD Primary Care Provide r Faye Davey [employer]ER Unavailable Encounter Details Date Type Department Care Team (Late st Contact Info) Description 10/08/2021 Procedure Pass Echo Lab [address] [place] [address] Social History Tobacco Use Types Packs/Day Years [...] Description 07/15/2024 Procedure Pass Echo Lab [address] [place] [address] 12/27/2024 2:20 PM EDT Infusion [facility] [address] [place] [address] 01/19/2025 11:45 AM EDT Office Visit [facility] [address] [place] [address] 3rd [facility], [address] [place] [address] Rashi Garcia MD [address] [place] [address] 01/24/2025 2:20 PM EDT Infusion [facility] at [address] [address] 02/21/2025 1:00 PM EDT Infusion [facility] at [address] [address] 07/04/2026 1:45 PM EST Appointment Echo Lab [address] [place] [address] Julián Galvez MD [address] [place] [address] 07/18/2026 2:00 PM EDT Office Visit [facility] [address] [place] [address] [place] [address], [address] [address] Julián Galvez MD [address] [place] [address] documented as of this encounter Visit Diagnoses Not on filedocumented in this encounter Care Teams Restaurant Line Server Relationship Specialty Start Date End Date Cooper Adam MD [address] [address] PCP - General Family Medicine 02/20/21 Salvador Jenkins MD [address] [place] [address] Primary Oncologist Medical Oncology 04/24/20 Faye Davey CNP [address] [place] [address] Nurse Practitioner Medical Oncology 02/27/21 documented as of this encounter Additional Source Comments The information contained in this document represents components of the legal health record. It is not the complete legal health record.[facility]
--- OUTSIDE RECORDS SUMMARY | 2024-12-21 12:45 | XMS_ITS | Clinical Summary ---
Author Organization Formerly [facility] Address [address] [facility] [address] [place] [address] Phone Care Team Providers Care Campus Safety Officer Name Role Phone Salvador Jenkins MD Unavailable [phone] Cooper Adam MD Primary Care Provide r Faye Davey LOAN REVIEWER Unavailable Allergies Active Allergy Reactions Criticality Noted Date Comments Amitriptyline Unknown 01/17/2017 Ampicillin Fluoxetine Gabapentin 09/01/2023 Metformin Pain Low 06/24/2021 Methocarbamol Esomeprazole Magnesium Rash Low 01/17/2017 Penicillins Other (See Comments) ,GI Upset 01/17/2017 Cold sweats Famotidine GI Upset 01/17/2017 Tramadol 05/13/2021 upset stomach Medications cyanocobalamin (VITAMIN B-12) 1,000 mcg/mL injection Inject 1,000 mcg into the muscle every 30 (thirty) days. Once a month Active levocetirizine (XYZAL) 5 MG tablet Take 5 mg by mouth daily. Active calcium carbonate-vitamin D3 1,250 mg (500 mg elemental)-400 units per tablet Take 1 tablet by mouth 2 (two) times a day. Active omeprazole (PRILOSEC) 40 MG capsule Take 40 mg by mouth 2 (two) times a day. Active tiZANidine (ZANAFLEX) 4 MG capsule Take 4 mg by mouth 3 (three) times a day. Active atorvastatin (LIPITOR) 20 MG tablet Take 20 mg by mouth daily. Active SUMAtriptan (IMITREX) 100 MG tablet Take 100 mg by mouth every 2 (two) hours as needed for migraine. Not to exceed 200 mg/day Active sucralfate (CARAFATE) 100 mg/mL suspension Take 1 g by mouth 4 (four) times a day. Active BUTALBITAL-ASPIRIN -CAFFEINE ORAL Take by mouth as needed. Active albuterol (VENTOLIN HFA) 90 mcg/actuation inhaler Inhale 2 puffs into the lungs every 4 (four) hours as needed for wheezing or shortness of breath/dyspnea. 18 g 11 06/14/19 22 Active aspirin 81 MG EC tablet Take 81 mg by mouth daily. 06/30/19 21 Active FREESTYLE LITE Strp strips USE TO TEST BLOOD GLUCOSE LEVEL, 3 TIMES A DAY 05/29/19 22 Active cromolyn (OPTICROM) 4 % ophthalmic solution Place 1 drop into each eye as needed. 04/16/20 21 Active dicyclomine (BENTYL) 10 MG capsule Take 10 mg by mouth 4 (four) times a day. 01/31/20 21 Active LORazepam (ATIVAN) 0.5 MG tablet Take 0.5 mg by mouth 2 (two) times a day. 06/05/19 22 Active pyridoxine, vitamin B6, (B-6) 50 MG tablet Take 50 mg by mouth daily. 07/24/19 22 Active oxyCODONE HCl 10 mg Tab Take 10 mg by mouth every 8 (eight) hours. 09/26/19 22 Active triamcinolone acetonide 0.025 % cream APPLY TOPICALLY TWICE A DAY FOR 14 DAYS NEEDED FOR ITCHING 09/21/19 22 Active buPROPion (WELLBUTRIN XL) 300 MG ER 24 hr tablet Take 300 mg by mouth daily. 01/09/20 22 Active estradioL (CLIMARA) 0.025 mg/24 hr APPLY 1 PATCH TO THE SKIN EVERY WEEK 04/25/20 22 Active docusate sodium (COLACE) 100 MG capsule Take 1 capsule by mouth 2 (two) times a day. 09/02/19 23 Active RELISTOR 150 mg tablet Take 3 tablets by mouth every morning. 09/05/19 23 Active ondansetron (ZOFRAN-ODT) 8 MG disintegrating tablet Take 8 mg by mouth every 8 (eight) hours. bid 09/18/19 23 Active betamethasone dipropionate 0.05 % cream APPLY TOPICALLY TO THE AFFECTED AREA 2 TIMES A WEEK NEEDED 11/14/19 23 Active clindamycin (CLINDAGEL) 1 % gel Apply topically 2 (two) times a day. 11/14/19 23 Active nystatin cream APPLY TOPICALLY TO THE AFFECTED AREA THREE TIMES DAILY 11/14/19 23 Active promethazine (PHENERGAN) 25 MG tablet Take 25 mg by mouth every 4 (four) hours. Active zolpidem (AMBIEN) 10 mg tablet Take 10 mg by mouth nightly at bedtime as needed for sleep. Active PREMARIN vaginal cream as directed. INSERT 1 GRAM VAGINALLY EVERY NIGHT AT BEDTIME FOR 2 WEEKS THEN 2 TO 3 TIMES WEEKLY THEREAFTER 01/07/20 23 Active budesonide (PULMICORT FLEXHALER) 180 mcg/actuation inhalerIndications :Severe persistent asthma without complication Inhale 2 puffs into the lungs 2 (two) times a day. 3 each 3 03/12/20 23 Active butalbital-acetami nophen-caffeine (FIORICET, ESGIC) 50-325-40 mg per tablet Take 1 tablet by mouth every 6 (six) hours as needed. 06/02/19 24 Active LINZESS 72 mcg capsule Take 72 mcg by mouth daily. Active lisinopril (PRINIVIL,ZESTRIL) 2.5 MG tabletIndications: Dyspnea take 1 tablet by mouth every day 90 tablet 01/07/20 24 Active benzonatate (TESSALON) 100 MG capsule Take 1 capsule (100 mg total) by mouth 3 (three) times a day as needed for cough. 60 capsule 6 03/15/20 24 Active zafirlukast (ACCOLATE) 20 MG tablet TAKE 1 TABLET BY MOUTH TWICE DAILY 180 tablet 3 04/25/20 24 Active MOUNJARO 2.5 mg/0.5 mL PnIj subcutaneous pen Inject 7.5 mg under the skin once a week. Active tiotropium bromide (SPIRIVA RESPIMAT) 2.5 mcg/actuation mist for inhalation Inhale 2 puffs into the lungs daily. 12 g 3 09/21/19 25 Active DUPIXENT PEN 300 mg/2 mL subcutaneous penIndications:Sev ere persistent asthma without complication INJECT 300MG SUBCUTANEOUSLY EVERY OTHER WEEK 4 mL 09/21/19 Active albuterol (VENTOLIN HFA) 90 mcg/actuation inhalerIndications :Moderate persistent asthma without complication Inhale 2 puffs into the lungs every 4 (four) hours as needed for wheezing. 18 g 09/21/19 25 Active Active Problems Patient Care Coordination No te Formatting of this note migh t be different from the original. Height 156.7cm no shoes 06/20 Problem Noted Date Diagnosed Date Depressive disorder 12/04/2022 Vitamin B12 deficiency 03/04/2021 Leukocytosis 11/19/2017 Pernicious anemia 01/17/2017 Resolved Problems Problem Noted Date Diagnosed Date Resolved Date Normocytic anemia 02/27/2017 08/19/2021 Absolute anemia 02/27/2017 08/19/2021 Encounters Date Type Department Care Team Description 11/29/2024 3:20 PM EDT [facility] [address] [address] Salvador Jenkins MD Hickson, Lauren, RN Pernicious anemia (Primary Dx); Vitamin B12 deficiency 11/29/2024 2:40 PM EDT [facility] [address] [address] Salvador Jenkins MD Other elevated white blood cell (WBC) count (Primary Dx); Pernicious anemia; Vitamin B12 deficiency 11/29/2024 1:37 PM EDT - 11/29/2024 11:59 PM EDT Hospital Encounter [facility] [address] [place] [id number] Salvador Jenkins MD Discharge Disposition: Home or Self Care 11/22/2024 Orders Only [facility] [address] [address] Katharine Tristan CMA Vitamin B12 deficiency (Primary Dx) 11/02/2024 2:00 PM EDT [facility] [address] [address] Salvador Jenkins MD Flynn, Margaret Broad, FLAQUITA Pernicious anemia (Primary Dx); Vitamin B12 deficiency 11/02/2024 Orders Only [facility] at [address] [address] Fernanda Peralta FNP 11/01/2024 Telephone [facility] Oncology - Virtual Department [address] [place] [phone] Marleny Cunningham, RN Appointment (Pt no show, needs new appt ) 11/01/2024 Telephone [facility] Oncology - Virtual Department [address] [place] [phone] Marleny Cunningham, FLAQUITA 09/29/2024 1:20 PM EDT [facility] [address] [address] Salvador Jenkins MD Pernicious anemia (Primary Dx); Vitamin B12 deficiency 09/27/2024 Telephone [facility] [address] [address] Salvador Jenkins MD Reschedule 09/20/2024 11:30 AM EDT Office Visit [facility] [address] [facility] [address] [facility] 3rd Floor, [address] [place] [address] Rashi Garcia MD Severe persistent asthma without complication (Primary Dx); Moderate persistent asthma without complication from Last 3 Months Immunizations Immunization Administration Dates Next Due COVID-19 (Pre-02/16) Pfizer Vaccine, mRNA, PF 03/14/2021,08/26/2020,08/05/2020 [id number] FORMULATION 03/19/2009 INFLUENZA, SPLIT VIRUS, TRIVALENT PF 03/11/2017 INFLUENZA, SPLIT VIRUS, TRIV ALENT W/ PRESERVATIVE IM 02/26/2022,02/18/2021,01/31/2020,01/21,01/23/2015,01/25/2014,02/09/2013 ,01/06/2011,02/08/2010,03/03/2009 Influenza Quadrivalent Prese rvative Free IM 02/15/2019 Influenza, whole 02/05/2007 Pneumococcal polysaccharide PPSV23 02/15/2019, Td (adult),2 Lf Tetanus Toxo id, PF, Adsorbed 02/15/2019 Tdap 01/09/2011 Zoster recombinant 05/16/2019,02/15/2019 Family History Medical History Relation Comments Asthma Daughter Relation Status Comments Daughter Social History Tobacco Use Types Packs/Day Years Used Date Smoking Tobacco: Never Smokeless Tobacco: Never Tobacco Cessation:Counseling Given: Not Answered Alcohol Use Standard Drinks/Week Comments Never 0 [...] on file Sexual Orientation Not on file Last Filed Vital Signs Vital Sign Reading Time Taken Comments Blood Pressure 133/73 11/29/2024 2:34 PM EDT Pulse 73 11/29/2024 2:34 PM EDT Temperature 36.6 C (97.8 F) 11/29/2024 2:34 PM EDT Respiratory Rate 18 08/25/2024 12:00 PM EDT Oxygen Saturation 98% 11/29/2024 2:34 PM EDT Inhaled Oxygen Concentration - - Weight 75.1 kg (165 lb 8 oz) 11/29/2024 2:34 PM EDT Height 156.7 cm (5' 1.69 ) 11/29/2024 2:34 PM ED T Body Mass Index 30.57 11/29/2024 2:34 PM EDT Plan of Treatment Upcoming Encounters Date Type Department Care Team (Late st Contact Info) Description 07/15/2024 Procedure Pass [facility] [address] [place] [address] 12/27/2024 2:20 PM EDT Infusion [facility] [address] [facility] [place] [address] 01/19/2025 11:45 AM EDT Office Visit [facility] [address] [place] [address] 3rd [facility], [address] [place] [address] Rashi Garcia MD [address] [place] [address], [address] [address] 01/24/2025 2:20 PM EDT Infusion [facility] at [address] [address] 02/21/2025 1:00 PM EDT Infusion [facility] at [address] [address] 07/04/2026 1:45 PM EST Appointment Echo Lab [address] [place] [address] Julián Galvez MD [address] [place] [address], [address] [address] 07/18/2026 2:00 PM EDT Office Visit [facility] [address] [place] [address] [place] [address], [address] [place] [address] Julián Galvez MD [address] [place] [address], [address] [address] [email or web address] Health Maintenance Due Date Last Done Comments LIPID PANEL 1961 DEPRESSION SCREENING 1973 HEPATITIS C SCREENING 11/07/1979 HIV ONE-TIME SCREENING (18-65 YEARS) 11/07/1979 PAP SMEAR 1982 MAMMOGRAM 2001 COLOGUARD 2006 COLONOSCOPY 2006 COLORECTAL CANCER SCREENING 2006 FIT TEST 2006 FOBT 2006 SIGMOIDOSCOPY 2006 VIRTUAL COLONOSCOPY 2006 INFLUENZA VACCINE (#1) 2024 , 01/30/2023, 02/26/2022, Additional history exists CREATININE LEVEL 11/29/2025 11/29/2024, 08/2023, 06/02/2023, Additional history exists POTASSIUM LEVEL 11/29/2025 11/29/2024, 08/0 08/2023, 06/02/2023, Additional history exists SCREENING FOR DIABETES 11/30/2027 11/29/2024, 2017 Adult Td,Tdap Booster 01/11/2034 01/12/2024 , 02/15/2019, 01/09/2011 ZOSTER VACCINES Completed 05/16/2019, 02/15/2019 PNEUMOCOCCAL VACCINES (50+ years) Completed 01/30/2023, 02/15/2019, 06/26/2017 RSV VACCINE Completed 01/30/2023 COVID-19 VACCINE Completed 01/12/2024, 09/2022, 03/14/2021, Additional history exists SMOKING STATUS SCREENING (Once After 26 Yrs) Completed 11/29/2024 HEPATITIS A VACCINES Aged Out No long er eligible based on patient's age to complete this topic HIB VACCINES Aged Out No longer eligi ble based on patient's age to complete this topic MENINGOCOCCAL VACCINES (ACWY) Aged Out No longer eligible based on patient's age to complete this topic MENINGOCOCCAL VACCINES (B) Aged Out N o longer eligible based on patient's age to complete this topic Medical Devices Not on file Procedures Procedure Name Priority Date/Time Associated Diagnosis Comments COMPREHENSIVE METABOLIC PANEL Routine 11/29/2024 1:37 PM EDT Vitamin B12 deficiency CBC AND DIFFERENTIAL Routine 11/29/2024 1:37 PM EDT Vitamin B12 deficiency VITAMIN B12 Routine 11/29/2024 1:37 PM EDT Vitamin B12 deficiency FERRITIN Routine 11/29/2024 1:37 PM EDT Vitamin B12 deficiency GLUCOSE Routine 04/16/2018 9:58 AM EST Headache, unspecified headache type from Last 3 Months or Most Recently Relevant to Health Maintenance Results * (ABNORMAL) Comprehensive metabolic panel (11/29/2024 1:37 PM EDT) SODIUM 139 133 - 146 mmol/L [facility] POTASSIUM 3.3 3.3 - 5.1 mmol/L [facility] CHLORIDE 101 96 - 108 mmol/L [facility] CO2 25 21 - 35 mmol/L [facility] BUN 16 6 - 19 mg/dL [facility] CREATININE 1.00 0.5 - 1.5 mg/dL [facility] GLUCOSE 110(H) 70 - 99 mg/dL [facility] ALBUMIN 4.4 3.9 - 4.8 g/dL [facility] TOTAL PROTEIN 7.5 6.5 - 8.0 g/dL [facility] CALCIUM 9.4 8.4 - 10.3 mg/dL [facility] ALKALINE PHOSPHATASE 94 39 - 117 U/L [facility] TOTAL BILIRUBIN 0.6 0.0 - 1.2 mg/dL [facility] AST 18 0 - 37 U/L [facility] ALT 19 0 - 40 U/L [facility] GLOBULIN 3.1 1 - 4.8 g/dL [facility] EGFR 63 >59 mL/min/1.7 3m2 [facility] Comment:Estimated glomerular filtration rate calculated using the CKD-EPI refit equation. ANION GAP 16 10 - 20 mmol/L [facility] Blood 11/29/2024 1:37 PM EDT 11/29/2024 1:44 PM EDT us Salvador Jenkins MD LAB BLOOD ORDERABLES Final Res ult [address] [id number] * (ABNORMAL) CBC and differential (11/29/2024 1:37 PM EDT) WBC 11.95(H) 4.00 - 11.00 K/uL [facility] RBC 4.07 4.00 - 5.20 M/uL [facility] HGB 13.1 12.0 - 16.0 g/dL [facility] HCT 38.2 36.0 - 46.0 % [facility] PLT 278 150 - 450 K/uL [facility] MCV 93.9 80.0 - 100.0 fL [facility] MCH 32.2(H) 27.0 - 31.0 pg [facility] MCHC 34.3 32.0 - 36.0 g/dL [facility] RDW 12.0 11.5 - 14.5 % [facility] MPV 10.5 8.4 - 12.0 fL [facility] NRBC 0.00 0.00 /100 WBCs [facility] ABSOLUTE NRBC 0.00 0.00 K/uL [facility] DIFF METHOD Auto [facility] NEUTS 64.6 48.0 - 76.0 % [facility] LYMPHS 27.7 18.0 - 41.0 % [facility] MONOS 5.4 4.0 - 11.0 % [facility] EOS 1.5 0.0 - 5.0 % [facility] BASOS 0.5 0.0 - 1.5 % [facility] Granulocytes, immature (%) 0.3 0.0 - 0.9 % [facility] ABSOLUTE NEUTS 7.72(H) 1.92 - 7.60 K/uL [facility] ABSOLUTE LYMPHS 3.31 0.72 - 4.10 K/uL [facility] ABSOLUTE MONOS 0.64 0.16 - 1.10 K/uL [facility] ABSOLUTE EOS 0.18 0.00 - 0.50 K/uL [facility] ABSOLUTE BASOS 0.06 0.00 - 0.15 K/uL [facility] Granulocytes, immature 0.04 0.00 - 0.09 K/uL [facility] Blood 11/29/2024 1:37 PM EDT 11/29/2024 1:44 PM EDT us Salvador Jenkins MD LAB BLOOD ORDERABLES Final Res ult [address] [address] * (ABNORMAL) Ferritin (11/29/2024 1:37 PM EDT) FERRITIN 154(H) 13 - 150 ug/L [facility] Blood 11/29/2024 1:37 PM EDT 11/29/2024 1:44 PM EDT us Salvador Jenkins MD LAB BLOOD ORDERABLES Final Res ult Performing Organization Address [facility]/ZIP Co de Phone Number [address] [address] * Vitamin B12 (11/29/2024 1:37 PM EDT) VITAMIN B12 1,000 232 - 1,245 pg/mL [facility] Blood 11/29/2024 1:37 PM EDT 11/29/2024 1:44 PM EDT us Salvador Jenkins MD LAB BLOOD ORDERABLES Final Res ult Performing Organization Address [facility] Co de Phone Number [address] [address] * (ABNORMAL) Glucose (04/16/2018 9:58 AM EST) GLUCOSE 135(H) 70 - 99 mg/dL [facility] Blood 04/16/2018 9:58 AM EST 04/16/2018 10:00 AM EST us Sarthak Armstrong MD LAB BLOOD ORDERABLES Final R esult Performing Organization Address [facility] Co de Phone Number [address] [address] from Last 3 Months or Most Recently Relevant to Health Maintenance Insurance MEDICARE PART A & [place] [facility] [place] [facility] & [place] & B [employer] MEDICARE PART A & [place] & B [facility] Care Teams Campus Safety Officer Relationship Specialty Start Date End Date Cooper Adam MD [address] [place] [id number] PCP - General Family Medicine 02/20/21 [email or web address] Jenkins MD [address] [place] [address] [email or web address] Primary Oncologist Medical Oncology 04/24/20 Faye Davey CNP [address] [place] [address] Nurse Practitioner Medical Oncology 02/27/21 Additional Source Comments The information contained in this document represents components of the legal health record. It is not the complete legal health record.[facility]ly [facility]
[2024-12-21 13:56] LABS: Appearance Urine Clear; Glucose Urine UA Negative (Negative); PH 6.0 (5.0-9.0); Specific Gravity - Urine 1.020 (1.005-1.025); UMIC TRIGGER UACC YES
== END 2024-12-21 11:57 | disposition home or self-care (01) ==
LOC: HO.HMGCX 11:56
PROVIDERS: PCP Family Medicine; Visit Provider Internal Medicine Gastroenterology
DX: R10.30 Lower abdominal pain, unspecified (principal)
CPT/HCPCS: 74018; 81001

== ENCOUNTER → 2024-12-21 12:01 | Outpatient (BNV) | payer MEDICARE, MEDICAID, SELFPAY | PROVIDERS: PCP Family Medicine; Visit Provider Radiology Diagnostic Radiology | DX: R10.30 Lower abdominal pain, unspecified (principal); R16.0 Hepatomegaly, not elsewhere classified; M47.815 Spondylosis without myelopathy or radiculopathy, thoracolumbar region; M41.85 Other forms of scoliosis, thoracolumbar region | CPT/HCPCS: 74018 ==

== ENCOUNTER 2024-12-27 09:14 | Emergency (ER) | payer MEDICARE, MEDICAID, SELFPAY ==
--- NOTE | ~2024-12-27 | CT_ITS ---
EXAMINATION: CT ABDOMEN AND PELVIS WITH CONTRAST CLINICAL INFORMATION: abd pain, r/o diverticulitis COMPARISON: August 08, 2023 TECHNIQUE: Multidetector volumetric images were obtained from the superior aspect of the liver through the pubic symphysis following administration 85 mL of Omnipaque 350 intravenous contrast. Sagittal and coronal reformatted images were obtained on the technologist's workstation. Oral contrast: No This CT examination was performed using dose optimization techniques as appropriate, variously including the following: *Automated exposure control *Adjustment of mA and/or kV according to patient size (this includes techniques or standardized protocols for targeted exams where dose is matched to indication/reason for exam; i.e. extremities or head) *Use of iterative reconstruction technique DLP: 497 mGY*cm FINDINGS: LUNG BASES: Clear LIVER, GALLBLADDER, AND BILIARY TREE: The liver demonstrates decreased attenuation without focal abnormality. Gallbladder is not visualized and likely surgically absent. PANCREAS: Unremarkable. SPLEEN: Unremarkable. ADRENAL GLANDS: Unremarkable. KIDNEYS AND URETERS: The kidneys are normal in size, shape, and attenuation. No hydronephrosis, hydroureter, or calculi seen. No perinephric stranding. BLADDER: Unremarkable. GASTROINTESTINAL TRACT: There is an end to end anastomosis at the rectosigmoid junction. There is focal edema and bowel wall thickening involving the mid descending colon with adjacent fat stranding and trace fluid. A few scattered pseudodiverticula are present in the descending and sigmoid colon. The cecum sits low in the posterior pelvis. The appendix is within normal limits. ABDOMINAL WALL: Previous infraumbilical midline hernia has been repaired. LYMPH NODES: Normal. VASCULAR: Moderate calcification is are evident the origin of both renal arteries and at the celiac and SMA origin.. PELVIC VISCERA: Unremarkable. OSSEOUS STRUCTURES: There is mild levoscoliosis of the lumbar spine. CT/CT abdomen pelvis w IV con IMPRESSION: Evidence of an acute focal colitis involving mid descending colon without visible free air. Differential considerations for bowel wall thickening include infection, inflammatory bowel disease, neoplasm, and ischemia. There is an end to end anastomosis at the rectosigmoid junction. Previous infraumbilical midline hernia has been repaired. Mild hepatic steatosis. Fleischner guidelines were followed. Electronically signed by: Blas Ward MD 12/27/2024 12:00 PM EDT
[2024-12-27 09:18] VITALS: BP 178/86; PULSE 138; RESP 18; TEMP 37.3; O2SAT 96; BMI 28.5
[2024-12-27 10:00] LABS: MANUAL DIFF FLAG NO
[2024-12-27 10:07] LABS: Hematocrit 42.1 % (37.0-47.0); Hemoglobin 14.9 g/dl (12.0-16.0); Imm Gran Abs Auto 0.08 X10*3/uL (0.00-0.03); Imm Gran Pct Auto 0.4 % (0.0-0.4); Lymphocytes Absolute Auto 1.5 X10*3/uL (1.2-4.9); Mean Corpuscular HGB Conc 35.4 g/dl (31.0-35.0); Mean Corpuscular Hemoglobin 32.0 pg (27.0-33.0); Mean Corpuscular Volume 90.5 fL (80.0-98.0); NRBC Abs Auto 0.000 X10*3/uL (0.0-0.012); NRBC Pct Auto 0.0 /100WBC (0.0-0.2); Platelet Count 323 X10*3/uL (160-400); Red Blood Count 4.65 X10*6/uL (4.20-5.50); White Blood Count 20.5 X10*3/uL (4.8-10.8)
--- NOTE | 2024-12-27 10:16 | ED_ITS ---
HPI - Abdominal Pain General Chief Complaint: Abdominal Pain Stated Complaint: Abd pain Time Seen by Provider: 12/27/24 09:29 Source: patient and family Mode of arrival: ambulatory Limitations: no limitations History of Present Illness ED Provider: sanchez villarreal HPI narrative: 64-year-old female here today complaining of abdominal pain for the past couple of weeks. History of diverticulitis with abscess had surgery in 2010 had a partial colectomy with a colonoscopy bag and reversal. Patient sees Dr. thomas. . Patient states the pain has been worse since Thursday. Had an x-ray and had a urine done per her GI doctor she does not know the results. Patient unable to tolerate the pain today. She is nauseous use vomiting. Patient states it feels like her diverticulitis last recurrent episode she had was 2 years ago. Then she was placed on antibiotics. Patient denies any fevers or any chills or any urinary complaints. Related Data Home Medications ?Medication ?Instructions ?Recorded ?Confirmed atorvastatin 20 mg tablet 1 tab PO DAILY 04/17/2007/26 calcium 600 mg (as 1 tab PO BID 04/17/20 carbonate)-vitamin D3 10 mcg (400 unit) tablet levocetirizine 5 mg tablet 1 tab PO BEDTIME 04/17/20 0 08/14/23 sumatriptan succinate 100 mg tablet 100 mg PO DAILY MR X1 PRN Migraine 04/17/20 08/14/23 Headache blood sugar diagnostic #10 ea 09/28/20 05/28/23 lancets 28 gauge #100 ea 09/28/20 05/28/23 albuterol sulfate 90 mcg/actuation 2 puff inhalation Q 4H PRN wheezing 10/09/20 08/14/23 aerosol inhaler lisinopril 2.5 mg tablet 2.5 mg PO DAILY 11/07/20 aspirin 81 mg tablet,delayed 81 mg PO DAILY 12/11/20 0 08/14/23 release budesonide 180 mcg/actuation 1 puff PO BID 12/11/20 breath activated powder inhaler (Pulmicort Flexhaler) xehqzvyznf-djslywm-xrrktkry 50 1 cap PO Q6H PRN Headac he 12/11/20 08/14/23 mg-325 mg-40 mg capsule cromolyn 4 % eye drops 1 drp ophthalmic (eye) QID 0 12/11/20 08/25/23 tiotropium bromide 2.5 2 puff inhalation DAILY 11/2508/14/23 mcg/actuation mist for inhalation (Spiriva Respimat) zolpidem 10 mg tablet 10 mg PO BEDTIME PRN insomni a 01/04/21 08/14/23 bupropion HCl 300 mg 24 hr tablet, 300 mg PO DAILY 08/25/23 extended release lorazepam 0.5 mg tablet 0.5 mg PO BID PRN Anxiety 08/14/23 ferrous gluconate 324 mg (38 mg 324 mg PO BID 07/29/21 08/14/23 iron) tablet dupilumab 300 mg/2 mL subcutaneous 300 mg subcut Q2W 0 07/11/22 08/14/23 pen injector ([employer]) zafirlukast 20 mg tablet 20 mg PO BID 07/11/22 fluticasone furoate 200 1 ea inhalation DAILY 08/14/23 mcg-vilanterol 25 mcg/dose inhalation powder (Breo Ellipta) conjugated estrogens 0.625 mg/gram 0.625 mg vaginal DA JENSEN 01/22/23 08/25/23 vaginal cream (Premarin) betamethasone dipropionate 0.05 % 1 appl topical DAILY 05/15/23 08/14/23 topical cream cyanocobalamin (vitamin B-12) 1,000 mcg IM QMONTH 04/2708/14/23 1,000 mcg/mL injection kit dulaglutide 0.75 mg/0.5 mL 0.75 mg subcut .QTHURSDAY 0 06/26/23 08/14/23 subcutaneous pen injector (Jeremiah) oxycodone 5 mg tablet 7.5 mg PO TID PRN pain 08/1308/14/23 estradiol 0.025 mg/24 hr weekly 1 patch transdermal QW BREVIG MISSION 07/26/24 transdermal patch oxycodone 10 mg tablet 10 mg PO TID PRN 07/26/24 tirzepatide 5 mg/0.5 mL mg subcut 07/26/24 subcutaneous pen injector (Padmaja) Previous Rx's ?Medication ?Instructions ?Recorded docusate sodium 100 mg capsule 100 mg PO BID #30 caps 08/28/23 (Colace) oxycodone-acetaminophen 5 mg-325 1 tab PO TID PRN pain #25 tabs 09/01/23 mg tablet (Percocet) abdominal binder #1 ea 09/25/23 hyoscyamine sulfate 0.125 mg 0.125 mg PO BID-QID PRN d yspepsia 05/09/24 disintegrating tablet #90 tabs sucralfate 100 mg/mL oral 5 ml PO QID #1,000 mL suspension (Carafate) pyridoxine (vitamin B6) 50 mg 50 mg PO DAILY 90 days # 90 tabs 07/26/24 tablet dicyclomine 10 mg capsule 10 mg PO Q6-8H PRN for cramp s #360 10/13/24 caps omeprazole 40 mg capsule,delayed 40 mg PO BID #180 cap s 10/13/24 release linaclotide 72 mcg capsule 72 mcg PO DAILY #30 caps (Linzess) methylnaltrexone 150 mg tablet 450 mg (3 x 150 mg) PO DAILY #90 12/19/24 (Relistor) tabs ondansetron 8 mg disintegrating 8 mg PO Q8H #90 tabs 0 12/19/24 tablet promethazine 25 mg tablet 25 mg PO Q4-6H PRN for 12/19 nausea/vomiting #90 tabs ciprofloxacin HCl 500 mg tablet 500 mg PO BID #20 tabs 12/27/24 (Cipro) metronidazole 500 mg tablet 500 mg PO TID #30 tabs 06/21 Allergies Allergy/AdvReac Type Severity Reaction Status Date / Time acetaminophen (From Tylenol) Allergy Severe Gastrointestinal Verified 12/27/24 09:19 Upset esomeprazole (Nexium) Allergy Severe rash Verified 12/27/24 09:19 famotidine (From PEPCID) Allergy Severe Gastrointestinal Verified 12/27/24 09:19 Upset, rash gabapentin (GABAPENTIN) Allergy Severe ABD PAIN Verified 12/27/24 09:19 lansoprazole (Prevacid) Allergy Severe Gastrointestinal Verified 12/27/24 09:19 Upset, rash Penicillins (PENICILLINS) Allergy Severe RASH, Verified 12/27/24 09:19 stomach pains tramadol Allergy Severe Gastrointestinal Verified 12/27/24 09:19 Upset, hives morphine AdvReac Severe migraine Verified 12/27/24 09:19 headache adhesive tape AdvReac Intermediate Redness of Verified 12/27/24 09:19 Skin Review of Systems Review of Systems Constitutional : No Fever, No Chills ENT/Mouth : No sore throat, No Rhinorrhea Eyes: No Eye Pain, No Swelling, No Redness Cardiovascular : No Chest Pain, No SOB Respiratory : No Cough, No Sputum Gastrointestinal : Positive Nausea, no Vomiting, No Diarrhea, positive abdominal Pain Genitourinary : No Dysuria, No Hematuria Musculoskeletal : No joint pain, No Myalgias, No Joint Swelling Skin : No Skin Lesions, positive skin rash Neuro : No Weakness, No Numbness, No Headache All other systems reviewed and are negative [facility] Past Medical History Medical History Seasonal allergies Use of cane as ambulatory aid CTS (carpal tunnel syndrome) Abdominal hernia Morbid obesity due to excess calories Incisional hernia UTI (urinary tract infection) Chronic back pain Diverticulitis Diverticulitis History of diverticulitis SIRS (systemic inflammatory response syndrome) Abdominal pain Asthma Depression Migraines Diabetes 1.5, managed as type 2 HTN (hypertension) Surgical History Hx of hernia repair Hx of surgical procedure (~08/25/23) Hx of hand surgery Hx of colonoscopy History of esophagogastroduodenoscopy (EGD) History of partial colectomy History of hysterectomy History of cholecystectomy Family History Family History Father Cancer Social History Social History Household Members: Significant Other Housing: Apartment Are you a primary care management coordinator to a significant other at home: No Do you presently have visiting nurse or other home services: No Alcohol intake: never Comment: Pt. sleeping Patient Tobacco Use Status: Never used Tobacco Smoked in Last 30 Days: No e-Cigarette/Vaping Use: Never Used Second Hand Smoke Exposure: Yes Advance Directives: Yes Advance Directives on File: Yes Advance Directives Date on File: 10/02/20 service: No Current occupational status: disabled Physical Exam ED Vital Signs: Vital Signs - 24 hr 12/27/24 09:18 12/27/24 10:28 12/27/24 12:33 Temperature 99.1 F 99.1 F 98.9 F Pulse Rate 138 H 138 H 108 H Respiratory Rate 18 18 18 Blood Pressure 178/86 H 178/86 H 116/77 Pulse Oximetry 96 97 93 Oxygen Delivery Method Room Air Room Air Room Air BMI result Body Mass Index 28.5 Appearance: Alert. Oriented X3. No acute distress. Eyes: Pupils equal, round and reactive to light. ENT: Pharynx normal. Neck: Normal inspection. Neck supple. CVS: Normal heart rate and rhythm. Pulses normal. Respiratory: No respiratory distress. Breath sounds normal. Abdomen: Soft . Diffuse tender throughout no peritoneal signs noted. Nondistended normal BS Skin: Skin warm and dry. Normal skin color. Extremities: No lower extremity edema. No calf ttp FROM of extemities Neuro: Oriented X 3. Medical Decision Making Medical Decision Making MDM Narrative: Patient is a 64-year-old female with diffuse abdominal pain for 3 weeks. Greater on her left lower quadrant. She has had nausea denies any vomiting. She was seen by her GI doctor and had an x-ray and a urinalysis ordered but does not know the results. She came in here today because the pain has worsened she is unable to tolerate the pain. She has had a history of a partial cholecystectomy in 2010 with diverticular abscess and a colostomy bag with a reversal. Her last episode of diverticulitis was approximately a year to 2 years ago. She states these felt like the same symptoms. I ordered the patient 1 L of normal saline labs and an abdominal CT with IV contrast for further evaluation and treatment. The patient received Dilaudid 1 mg IV along with Zofran 4 mg p.o. for pain. Patient is nontoxic non lethargic and well-appearing at this time. Her abdomen is soft and there is no perineal signs noted Lactic is 1.7. WBC is 20.5. Patient has received Dilaudid 1 mg IV x2. Patient is currently taking oxycodone 10 mg at home p.o. she had no resolution chest she came in. CT positive colitis. No abscess noted. Patient is started on antibiotics metronidazole and ceftriaxone. Discussed with my supervising physician Patient seen by hospitalist service. Declined admission. Patient to be discharged home. Low threshold to return to the emergency department. Take medication as directed. Follow-up with your GI doctor. Call today to schedule a follow-up appointment. Take your pain medication here I have at home. We will start on 2 different antibiotics. Script also written for nausea medication Differential Diagnosis Differential Diagnoses: The differential diagnosis associated with the presentation includes (Obstruction Diverticulitis perforation diverticular abscess colitis) Lab Data 12/27/24 09:57 12/27/24 09:54 Labs: Lab Results 12/27/24 12/27/24 12/27/24 Range/Units 09:54 09:57 10:10 WBC 20.5 H (4.8-10.8) X10*3/uL RBC 4.65 (4.20-5.50) X10*6/uL Hgb 14.9 (12.0-16.0) g/dl Hct 42.1 (37.0-47.0) % MCV 90.5 (80.0-98.0) fL MCH 32.0 (27.0-33.0) pg MCHC 35.4 H (31.0-35.0) g/dl RDW 11.9 (11.0-16.0) % Plt Count 323 (160-400) X10*3/uL MPV 9.8 (9.4-12.3) fL Immature Gran % (Auto) 0.4 (0.0-0.4) % Neut % (Auto) 86.7 H (45-73) % Lymph % (Auto) 7.2 L (20-40) % [place] % (Auto) 5.3 (2-11) % Eos % (Auto) 0.2 (0-4) % Baso % (Auto) 0.2 (0-2) % Lymph # (Auto) 1.5 (1.2-4.9) X10*3/uL [place] # (Auto) 1.1 (0.1-1.2) X10*3/uL Eos # (Auto) 0.0 (0.0-0.4) X10*3/uL Baso # (Auto) 0.1 (0.0-0.2) X10*3/uL Abs Immat Gran (auto) 0.08 H (0.00-0.03) X10*3/uL Absolute Neuts (auto) 17.8 H (2.0-8.3) x10*3/uL Absolute Nucleated RBC 0.000 (0.0-0.012) X10*3/uL Nucleated RBC % (auto) 0.0 (0.0-0.2) /100WBC Sodium 138 (135-145) mmol/L Potassium 3.9 (3.3-5.1) mmol/L Chloride 105 (96-108) mmol/L Carbon Dioxide 23 (22-29) mmol/L Anion Gap 14 (12-20) BUN 13 (9-16) mg/dL Creatinine 1.08 (0.5-1.4) mg/dL Estim Creat Clear Calc 51.0 Estimated GFR 51 Random Glucose 139 H (60-115) mg/dL Fasting Glucose 140 H (60-99) mg/dL Lactic Acid (0.5-2.0) mmol/L Calcium 9.6 (8.4-10.2) mg/dL Magnesium 2.0 (1.6-2.6) mg/dL Total Bilirubin 0.7 (0.0-1.0) mg/dL Direct Bilirubin 0.3 (0.0-0.5) mg/dL AST 25 (5-31) U/L ALT 21 (0-31) U/L Alkaline Phosphatase 99 (39-117) U/L Total Protein 8.4 H (6.5-8.0) g/dL Albumin 4.8 (3.5-5.0) g/dL Lipase 12 (8-78) U/L Urine Color Yellow Urine Appearance Clear Urine pH 6.5 (5.0-9.0) Ur Specific Orient <= 1.005 (1.005-1.025) Urine Protein Negative (Neg-Trace) mg/dL Urine Glucose (UA) Negative (Negative) mg/dL Urine Ketones Negative (Negative) mg/dL Urine Blood Trace H (Negative) Urine Nitrite Negative (Negative) Ur Leukocyte Esterase Negative (Negative) Urine RBC 0-2 (0-2) /HPF Urine WBC 0-5 (0-5) /HPF Ur Squamous Epith Cells 0-2 (0-2) /HPF Urine Bacteria None Seen (None Seen) Hyaline Casts 0-2 (0-2) /LPF 09/02/25 Range/Units 10:54 WBC (4.8-10.8) X10*3/uL RBC (4.20-5.50) X10*6/uL Hgb (12.0-16.0) g/dl Hct (37.0-47.0) % MCV (80.0-98.0) fL MCH (27.0-33.0) pg MCHC (31.0-35.0) g/dl RDW (11.0-16.0) % Plt Count (160-400) X10*3/uL MPV (9.4-12.3) fL Immature Gran % (Auto) (0.0-0.4) % Neut % (Auto) (45-73) % Lymph % (Auto) (20-40) % [place] % (Auto) (2-11) % Eos % (Auto) (0-4) % Baso % (Auto) (0-2) % Lymph # (Auto) (1.2-4.9) X10*3/uL [place] # (Auto) (0.1-1.2) X10*3/uL Eos # (Auto) (0.0-0.4) X10*3/uL Baso # (Auto) (0.0-0.2) X10*3/uL Abs Immat Gran (auto) (0.00-0.03) X10*3/uL Absolute Neuts (auto) (2.0-8.3) x10*3/uL Absolute Nucleated RBC (0.0-0.012) X10*3/uL Nucleated RBC % (auto) (0.0-0.2) /100WBC Sodium (135-145) mmol/L Potassium (3.3-5.1) mmol/L Chloride (96-108) mmol/L Carbon Dioxide (22-29) mmol/L Anion Gap (12-20) BUN (9-16) mg/dL Creatinine (0.5-1.4) mg/dL Estim Creat Clear Calc Estimated GFR Random Glucose (60-115) mg/dL Fasting Glucose (60-99) mg/dL Lactic Acid 1.7 (0.5-2.0) mmol/L Calcium (8.4-10.2) mg/dL Magnesium (1.6-2.6) mg/dL Total Bilirubin (0.0-1.0) mg/dL Direct Bilirubin (0.0-0.5) mg/dL AST (5-31) U/L ALT (0-31) U/L Alkaline Phosphatase (39-117) U/L Total Protein (6.5-8.0) g/dL Albumin (3.5-5.0) g/dL Lipase (8-78) U/L Urine Color Urine Appearance Urine pH (5.0-9.0) Ur Specific [place] (1.005-1.025) Urine Protein (Neg-Trace) mg/dL Urine Glucose (UA) (Negative) mg/dL Urine Ketones (Negative) mg/dL Urine Blood (Negative) Urine Nitrite (Negative) Ur Leukocyte Esterase (Negative) Urine RBC (0-2) /HPF Urine WBC (0-5) /HPF Ur Squamous Epith Cells (0-2) /HPF Urine Bacteria (None Seen) Hyaline Casts (0-2) /LPF Medications Administered Discontinued Medications Generic Name Dose Route Start Last Admin Trade Name Kaliq PRN Reason Stop Dose Admin Ceftriaxone Sodium 1 gm 12/27/24 10:36 12/27/24 11:03 Ceftriaxone Sodium 1 Gm Vial IVPUSH 12/27/24 10:37 1 gm ONCE ONE Administration Hydromorphone HCl 1 mg 12/27/24 10:23 12/27/24 11:02 Hydromorphone Hcl 1 Mg/Ml Syringe IVPUSH 12/27/24 10:24 1 mg ONCE ONE Administration Protocol Hydromorphone HCl 1 mg 12/27/24 12:24 12/27/24 12:34 Hydromorphone Hcl 1 Mg/Ml Syringe IVPUSH 12/27/24 12:25 1 mg ONCE ONE Administration Protocol Sodium Chloride 1,000 mls @ 999 mls/hr 12/27/24 09:54 12/27/24 11:02 Ns IV 12/27/24 10:54 Infused .Q1H1M ONE Infusion Metronidazole 500 mg in 100 mls @ 100 mls/hr 12/27/24 10:36 12/27/24 12:25 Flagyl IV 12/27/24 11:35 Infused ONCE ONE Infusion Iohexol 100 ml 12/27/24 11:35 12/27/24 11:35 Iohexol 350 Mg/Ml 100 Ml Infus..Btl IV 12/27/24 11:36 85 ml ONCE ONE Administration Ondansetron HCl 4 mg 12/27/24 09:54 12/27/24 10:07 Ondansetron Hcl 4 Mg/2 Ml Vial IVPUSH 12/27/24 09:55 4 mg ONCE ONE Administration Discharge Plan Discharge Clinical Impression: Colitis Patient Disposition: Home, Self-Care Prescriptions: New metronidazole 500 mg tablet 500 mg PO TID Qty: 30 0RF ciprofloxacin HCl [Cipro] 500 mg tablet 500 mg PO BID Qty: 20 0RF No Action oxycodone-acetaminophen [Percocet] 5-325 mg tablet 1 tab PO TID PRN (Reason: pain) Qty: 25 0RF Rx Instructions: Partial Fill upon patient request. (DME) abdominal binder to fit See Rx Instructions .Route .MEDSUPPLY Qty: 1 0RF Rx Instructions: As directed dicyclomine 10 mg capsule 10 mg PO Q6-8H PRN (Reason: for cramps) Qty: 360 0RF omeprazole 40 mg capsule,delayed release(DR/EC) 40 mg PO BID Qty: 180 2RF Linzess 72 mcg capsule 72 mcg PO DAILY Qty: 30 0RF promethazine 25 mg tablet 25 mg PO Q4-6H PRN (Reason: for nausea/vomiting) Qty: 90 0RF Relistor 150 mg tablet 450 mg PO DAILY Qty: 90 0RF ondansetron 8 mg tablet,disintegrating 8 mg PO Q8H Qty: 90 0RF lisinopril 2.5 mg Tablet 2.5 mg PO DAILY atorvastatin 20 mg tablet 1 tab PO DAILY sumatriptan succinate 100 mg tablet 100 mg PO DAILY MRX1 PRN (Reason: Migraine Headache) Rx Instructions: max 200mg calcium carbonate-vitamin D3 600 mg(1,500mg) -400 unit tablet 1 tab PO BID levocetirizine 5 mg tablet 1 tab PO BEDTIME cromolyn 4 % drops 1 drp ophthalmic (eye) QID gvbgxsrgiw-jtxoyft-ftrmcydu 50-325-40 mg capsule 1 cap PO Q6H PRN (Reason: Headache) Pulmicort Flexhaler 180 mcg/actuation aerosol powdr breath activated 1 puff PO BID Spiriva Respimat 2.5 mcg/actuation mist 2 puff inhalation DAILY aspirin 81 mg Tablet,Delayed Release (Dr/Ec) 81 mg PO DAILY oxycodone 5 mg tablet 7.5 mg PO TID PRN (Reason: pain) docusate sodium [Colace] 100 mg capsule 100 mg PO BID Qty: 30 0RF betamethasone dipropionate 0.05 % cream 1 appl topical DAILY Patient Comments: vaginal rash cyanocobalamin (vitamin B-12) 1,000 mcg/mL Kit 1,000 mcg IM QMONTH zolpidem 10 mg tablet 10 mg PO BEDTIME PRN (Reason: insomnia) bupropion HCl 300 mg tablet extended release 24 hr 300 mg PO DAILY lorazepam 0.5 mg tablet 0.5 mg PO BID PRN (Reason: Anxiety) ferrous gluconate 324 mg (38 mg iron) tablet 324 mg PO BID (DME) blood sugar diagnostic Strip See Rx Instructions Not Applicable TID Qty: 10 Rx Instructions: As directed (DME) lancets 28 gauge misc See Rx Instructions topical TID Qty: 100 Rx Instructions: As directed albuterol sulfate 90 mcg/actuation HFA aerosol inhaler 2 puff inhalation Q4H PRN (Reason: wheezing) Premarin 0.625 mg/gram cream 0.625 mg vaginal DAILY Dupixent Pen 300 mg/2 mL pen injector 300 mg subcut Q2W zafirlukast 20 mg tablet 20 mg PO BID fluticasone furoate-vilanterol [Breo Ellipta] 200-25 mcg/dose blister with device 1 ea inhalation DAILY Trulicity 0.75 mg/0.5 mL pen injector 0.75 mg subcut .QTHURSDAY hyoscyamine sulfate 0.125 mg tablet,disintegrating 0.125 mg PO BID-QID PRN (Reason: dyspepsia) Qty: 90 0RF oxycodone 10 mg tablet 10 mg PO TID PRN estradiol 0.025 mg/24 hr patch weekly 1 patch transdermal QWEEK Mounjaro 5 mg/0.5 mL pen injector subcut pyridoxine (vitamin B6) 50 mg tablet 50 mg PO DAILY 90 Days Qty: 90 1RF sucralfate [Carafate] 100 mg/mL suspension 5 ml PO QID Qty: 1000 2RF Rx Instructions: swish in mouth and swallow; use after food/drink Print Language: Swedish
[2024-12-27 10:17] LABS: Appearance Urine Clear; Glucose Urine UA Negative (Negative); PH 6.5 (5.0-9.0); Specific Gravity - Urine <= 1.005 (1.005-1.025); UMIC TRIGGER UACC YES
[2024-12-27 10:22] LABS: Alanine Aminotransferase 21 U/L (0-31); Albumin Level 4.8 g/dL (3.5-5.0); Alkaline Phosphatase 99 U/L (39-117); Anion Gap 14 (12-20); Aspartate Amino Transferase 25 U/L (5-31); Blood Urea Nitrogen 13 mg/dL (9-16); Calcium 9.6 mg/dL (8.4-10.2); Carbon Dioxide 23 mmol/L (22-29); Chloride 105 mmol/L (96-108); Creatinine Clr Calc Pharmacy 51.0; Estimated Glomerular Filt Rate 51; Lipase 12 U/L (8-78); Magnesium 2.0 mg/dL (1.6-2.6); Potassium 3.9 mmol/L (3.3-5.1); Sodium 138 mmol/L (135-145); Total Protein 8.4 g/dL (6.5-8.0)
[2024-12-27 10:28] VITALS: BP 178/86; PULSE 138; RESP 18; TEMP 37.3; O2SAT 97
--- OUTSIDE RECORDS SUMMARY | 2024-12-27 10:46 | XMS_ITS | Encounter Summary ---
Author Organization [facility] Address [address] [facility] [address] [facility] [address] [facility] [address] [place] [address] Phone Care Team Providers Care Basketball Coach Name Role Phone Salvador Jenkins MD Unavailable [phone] Cooper Adam MD Primary Care Provide r Faye Davey CNP Unavailable Reason for Visit * Reason Comments Medication Refill Encounter Details Date Type Department Care Team (Late st Contact Info) Description 06/09/2024 Refill [facility] [address] [place] [address] 3rd Floor, [address] [place] [address] Chucho Gage MD, MS [address] [facility], [address] [place] [id number] [email or web address] Medication Refill Social History Tobacco Use Types [...] Info) Description 07/15/2024 Procedure [facility] [address] [place] [address] 12/27/2024 2:20 PM EDT Infusion [facility] at [address] [address] Marleny Cunningham, FLAQUITA [address] [place] [address] 01/19/2025 11:45 AM EDT Office Visit [facility] [address] [place] [address] [place] [address], [address] [place] [address] Rashi Garcia MD [address] [place] [phone] 01/24/2025 2:20 PM EDT Infusion [facility] at [address] [address] 02/21/2025 1:00 PM EDT Infusion [facility] at [address] [address] 07/04/2026 1:45 PM EST Appointment [facility] [address] [place] [address] Julián Galvez MD [address] [place] [phone] 07/18/2026 2:00 PM EDT Office Visit [facility] [address] [place] [address] [address] [facility], [address] [address] Julián Galvez MD [address] [place] [address] [address] [place] [address] documented as of this encounter Visit Diagnoses Not on filedocumented in this encounter Care Teams Basketball Coach Relationship Specialty Start Date End Date Cooper Adam MD [address] [facility] [address] [place] [address] PCP - General Family Medicine 02/20/21 Salvador Jenkins MD [address] [place] [address] Primary Oncologist Medical Oncology 04/24/20 Faye Davey CNP [address] [place] [id number] Nurse Practitioner Medical Oncology 02/27/21 documented as of this encounter Additional Source Comments The information contained in this document represents components of the legal health record. It is not the complete legal health record.[facility]
--- OUTSIDE RECORDS SUMMARY | 2024-12-27 10:46 | XMS_ITS | Encounter Summary ---
Author Organization [facility] Address [address] [facility] [address] [place] [address] Phone Care Team Providers Care Watch Train Inspector Name Role Phone Salvador Jenkins MD Unavailable [phone] Cooper Adam MD Primary Care Provide r Faye Davey CNP Unavailable Reason for Visit * Reason Onset Date Comments Appointment 11/01/2024 Pt no show, need s new appt Encounter Details Date Type Department Care Team (Late st Contact Info) Description 11/01/2024 Telephone [facility] IP Oncology - Virtual Department [address] [place] [id number] Nelson Barba, Marleny Perez, RN [address] [place] [address] [email or web address] Appointment (Pt no show, needs new appt [...] Info) Description 07/15/2024 Procedure Pass [facility] [address] [place] [address] 12/27/2024 2:20 PM EDT Infusion [facility] at [address] [address] Marleny Cunningham, FLAQUITA [address] [place] [phone] 01/19/2025 11:45 AM EDT Office Visit [facility] [address] [place] [address] [address]rd Floor, [address] [place] [phone] Rashi Garcia MD [address] [place] [address], [address] [address] [email or web address] 01/24/2025 2:20 PM EDT Infusion [facility] at [address] [address] 02/21/2025 1:00 PM EDT Infusion [facility] at [address] [address] 07/04/2026 1:45 PM EST Appointment [facility] [address] [place] [address] Julián Galvez MD [address] [facility], [address] [place] [address] [email or web address] 07/18/2026 2:00 PM EDT Office Visit [facility] [address] [place] [address] 3rd Floor, [address] [place] [address] Julián Galvez MD [address] [facility], [address] [place] [phone] documented as of this encounter Visit Diagnoses Not on filedocumented in this encounter Care Teams Watch Train Inspector Relationship Specialty Start Date End Date Cooper Adam MD [address] [facility] [address] [place] [address] PCP - General Family Medicine 02/20/21 Salvador Jenkins MD [address] [place] [id number] Primary Oncologist Medical Oncology 04/24/20 Faye Davey CNP [address] [place] [address] Nurse Practitioner Medical Oncology 02/27/21 documented as of this encounter Additional Source Comments The information contained in this document represents components of the legal health record. It is not the complete legal health record.[facility]
--- OUTSIDE RECORDS SUMMARY | 2024-12-27 10:46 | XMS_ITS | Encounter Summary ---
Author Organization [facility] Address [address] [facility] [place] [address] Phone Care Team Providers Care Wheat Inspector Name Role Phone Salvador Jenkins MD Unavailable [phone] Cooper Adam MD Primary Care Provide r Faye Davey GENERATING PLANT SUPERINTENDENT Unavailable Encounter Details Date Type Department Care Team (Late st Contact Info) Description 02/20/2021 Procedure Pass Echo Lab [place] [place] [address] Social History Tobacco Use Types Packs/Day Years [...] Info) Description 07/15/2024 Procedure Pass Echo Lab [address] [place] [address] 12/27/2024 2:20 PM EDT Infusion [facility] [place] [place] 30 [place] [address] Marleny Cunningham, RN [address] [place] [address] 01/19/2025 11:45 AM EDT Office Visit [facility] [address] [place] [address], [address] [address] Rashi Garcia MD [address] [place] [address] 01/24/2025 2:20 PM EDT Infusion [facility] at [address] [address] 02/21/2025 1:00 PM EDT Infusion [facility] at [address] [address] 07/04/2026 1:45 PM EST Appointment Echo Lab [address] [address] Julián Galvez MD [address] [place] [address] 07/18/2026 2:00 PM EDT Office Visit [facility] [address] [place] [address], [address] [address] Julián Galvez MD [address] [place] [address] documented as of this encounter Visit Diagnoses Not on filedocumented in this encounter Care Teams Wheat Inspector Relationship Specialty Start Date End Date Cooper Adam MD [address] [address] PCP - General Family Medicine 02/20/21 Salvador Jenkins MD [address] [place] [address] [email or web address] Primary Oncologist Medical Oncology 04/24/20 Faye Davey CNP [address] [place], [place] [address] [email or web address] Nurse Practitioner Medical Oncology 02/27/21 documented as of this encounter Additional Source Comments The information contained in this document represents components of the legal health record. It is not the complete legal health record.[facility]
--- OUTSIDE RECORDS SUMMARY | 2024-12-27 10:46 | XMS_ITS | Encounter Summary ---
Author Organization [facility] Address [address] [place] [address] [place] [address] Phone Care Team Providers Care Certified Massage Therapist Name Role Phone Shiloh Gauthier MD Primary Care Provider Salvador Jenkins MD Unavailable [phone] Malika James MD Primary Care Provider [phone] Venancio Lomeli NP Primary Care Provider [phone] Cooper Adam MD Primary Care Provide r Faye Davey CNP Unavailable Encounter Details Date Type Department Care Team (Late st Contact Info) Description 06/13/2020 Procedure Pass [address] [place] [address] Social History Tobacco Use Types Packs/Day Years [...] Info) Description 07/15/2024 Procedure Pass Echo Lab [address] [place] [address] 12/27/2024 2:20 PM EDT Infusion [facility] at [address] [address] Marleny Cunningham, RN [address] [place] [address] 01/19/2025 11:45 AM EDT Office Visit [facility] [address] [place] [address] [place] [address], [address] [address] Rashi Garcia MD [address] [place] [address] 01/24/2025 2:20 PM EDT Infusion [facility] at [address] [address] 02/21/2025 1:00 PM EDT Infusion [facility] at [address] [address] 07/04/2026 1:45 PM EST Appointment Echo Lab [address] [place] [address] Julián Galvez MD [address] [place] [address] 07/18/2026 2:00 PM EDT Office Visit [facility] [address] [place] [address] 3rd [facility], [address] [address] Julián Galvez MD [address] [place] [address], [place] [address] documented as of this encounter Visit Diagnoses Not on filedocumented in this encounter Care Teams Certified Massage Therapist Relationship Specialty Start Date End Date Shiloh Gauthier MD [address] [place] [address] PCP - General Family Medicine 04/14/19 06/20/20 Malika James MD [address] [address] [email or web address] PCP - General 06/21/20 12/03/20 Venancio Lomeli NP [address] [place] [address] PCP - General Family Medicine 12/04/20 02/19/21 Cooper Adam MD [address] [address] PCP - General Family Medicine 02/20/21 Salvador Jenkins MD 30 [place] [address] Primary Oncologist Medical Oncology 04/24/20 Faye Davey CNP 30 [place] [address] Nurse Practitioner Medical Oncology 02/27/21 documented as of this encounter Additional Source Comments The information contained in this document represents components of the legal health record. It is not the complete legal health record.[facility]
--- OUTSIDE RECORDS SUMMARY | 2024-12-27 10:46 | XMS_ITS | Encounter Summary ---
Author Organization [facility] Address [address] [facility] [address] [place] [address] Phone Care Team Providers Care Glazier Stained Glass Name Role Phone Shiloh Gauthier MD Primary Care Provider Salvador Jenkins MD Unavailable [phone] Malika James MD Primary Care Provider [phone] Venancio Lomeli NP Primary Care Provider [phone] Cooper Adam MD Primary Care Provide r Faye Davey OUTDOOR EMERGENCY CARE TECHNICIAN Unavailable Reason for Referral * MRI/CAT Scan - Closed Specialty Diagnoses / Procedures Referred By Contac t Referred To Contact Radiology Diagnoses Lumbar radiculopathy Procedures MRI Lumbar Spine Bbii Tobias NP [address] [place] [address] Phone: tel: fax: [email or web address] Referral ID Status Reason Start Date Expiration Date Visits Re quested Visits Authorized [id number] Closed 06/13/2020 06/13/2021 1 1 Encounter Details Date Type Department Care Team (Latest Contact Info) Description 06/13/2020 Ancillary Orders Virtual Department [address] [place] [address] Bibi Tobias, ISIDRA [address] [place] [id number] [email or web address] Organization Lumbar radiculopathy Social History Tobacco Use Types [...] Info) Description 07/15/2024 Procedure Pass Echo Lab [address] [place] [address] 12/27/2024 2:20 PM EDT Infusion [facility] at [address] [address] Marleny Cunningham, RN [address] [place] [address] 01/19/2025 11:45 AM EDT Office Visit [facility] [address] [place] [address] 3rd Floor, [address] [place] [address] Rashi Garcia MD [address] [place] [address], [address] [address] 01/24/2025 2:20 PM EDT Infusion [facility] at [address] [address] 02/21/2025 1:00 PM EDT Infusion [facility] at [address] [address] 07/04/2026 1:45 PM EST Appointment Echo Lab [address] [place] [address] Julián Galvez MD [address] [facility], [address] [place] [address] .[employer] 07/18/2026 2:00 PM EDT Office Visit [facility] [address] [place] [address] 3rd Floor, [address] [place] [address] Julián Galvez MD [address] [facility], [address] [place] [address] .[employer] documented as of this encounter Results * [...] unspecified documented in this encounter Care Teams Glazier Stained Glass Relationship Specialty Start Date End Date Shiloh Gauthier MD [address] [place] [address] PCP - General Family Medicine 04/14/19 06/20/20 Malika James MD [address] [address] [email or web address] PCP - General 06/21/20 12/03/20 Venancio Lomeli NP [address] [place] [address] PCP - General Family Medicine 12/04/20 02/19/21 Cooper Adam MD [address] [address] PCP - General Family Medicine 02/20/21 Salvador Jenkins MD [address] [place] [address] Primary Oncologist Medical Oncology 04/24/20 Faye Davey CNP [address] [place] [address] [email or web address] Nurse Practitioner Medical Oncology 02/27/21 documented as of this encounter Additional Source Comments The information contained in this document represents components of the legal health record. It is not the complete legal health record.[facility]
--- OUTSIDE RECORDS SUMMARY | 2024-12-27 10:46 | XMS_ITS | Encounter Summary ---
Author Organization [facility] Address [address] [facility] [address] [place] [address] Phone Care Team Providers Care Wallpaper Printer Name Role Phone Salvador Jenkins MD Unavailable [phone] Cooper Adam MD Primary Care Provide r Faye Davey BEHAVIORAL CONSULTANT Unavailable Encounter Details Date Type Department Care Team (Late st Contact Info) Description 04/18/2022 Procedure Pass Echo Lab [place] [place] [address] Social History Tobacco Use Types Packs/Day Years [...] Info) Description 07/15/2024 Procedure Pass Echo Lab [address] [place] [address] 12/27/2024 2:20 PM EDT Infusion [facility] [place] [place] 30 [place] [address] Marleny Cunningham, RN [address] [place] [address] 01/19/2025 11:45 AM EDT Office Visit [facility] [address] [place] [address], [address] [address] Rashi Garcia MD [address] [place] [address] 01/24/2025 2:20 PM EDT Infusion [facility] at [address] [address] 02/21/2025 1:00 PM EDT Infusion [facility] at [address] [address] 07/04/2026 1:45 PM EST Appointment Echo Lab [address] [address] Julián Galvez MD [address] [place] [address] 07/18/2026 2:00 PM EDT Office Visit [facility] [address] [place] [address], [address] [address] Julián Galvez MD [address] [place] [address] documented as of this encounter Visit Diagnoses Not on filedocumented in this encounter Care Teams Wallpaper Printer Relationship Specialty Start Date End Date Cooper Adam MD [address] [address] PCP - General Family Medicine 02/20/21 Salvador Jenkins MD [address] [place] [address] [email or web address] Primary Oncologist Medical Oncology 04/24/20 Faye Davey CNP [address] [place], [place] [address] [email or web address] Nurse Practitioner Medical Oncology 02/27/21 documented as of this encounter Additional Source Comments The information contained in this document represents components of the legal health record. It is not the complete legal health record.[facility]
--- OUTSIDE RECORDS SUMMARY | 2024-12-27 10:46 | XMS_ITS | Encounter Summary ---
Author Organization [facility] Address [address] [facility] [address] [place] [address] Phone Care Team Providers Care Phthalic Acid Purifier Name Role Phone Salvador Jenkins MD Unavailable [phone] Cooper Adam MD Primary Care Provide r Faye Davey SENIOR CLINICAL RESEARCH SCIENTIST Unavailable Encounter Details Date Type Department Care Team (Late st Contact Info) Description 06/06/2021 Transcribe Orders [facility] [address] [place] [address] Rashi Garcia MD 22 [facility], [address] [place] [address] [email or web address] Social History Tobacco Use Types Packs/Day Years [...] Info) Description 07/15/2024 Procedure Pass Echo Lab [address] [place], [place] [address] 12/27/2024 2:20 PM EDT Infusion [facility] at [address] [address] Marleny Cunningham, FLAQUITA [address] [place] [address] 01/19/2025 11:45 AM EDT Office Visit [facility] [address] [place] [address] 3rd [facility], [address] [address] Rashi Garcia MD [address] [place] [address] 01/24/2025 2:20 PM EDT Infusion [facility] at [address] [address] 02/21/2025 1:00 PM EDT Infusion [facility] at [address] [address] 07/04/2026 1:45 PM EST Appointment Echo Lab [address] [address] Julián Galvez MD [address] [place] [address] 07/18/2026 2:00 PM EDT Office Visit [facility] [address] [place] [address] 3rd [facility], [address] [address] Julián Galvez MD [address] [place] [address] documented as of this encounter Visit Diagnoses Not on filedocumented in this encounter Care Teams Phthalic Acid Purifier Relationship Specialty Start Date End Date Cooper Adam MD [address] [address] PCP - General Family Medicine 02/20/21 Salvador Jenkins MD 30 [place] [address] [email or web address] Primary Oncologist Medical Oncology 04/24/20 Faye Davey CNP 30 [place] [address] [email or web address] Nurse Practitioner Medical Oncology 02/27/21 documented as of this encounter Additional Source Comments The information contained in this document represents components of the legal health record. It is not the complete legal health record.[facility]
--- OUTSIDE RECORDS SUMMARY | 2024-12-27 10:47 | XMS_ITS | Encounter Summary ---
Author Organization [facility] Address [address] [place] [address] [place] [address] Phone Care Team Providers Care Journeyman Patternmaker Name Role Phone Stephanie Andino DO Unavailable Shiloh Gauthier MD Primary Care Provider Salvador Jenkins MD Unavailable [phone] Malika James MD Primary Care Provider [phone] Venancio Lomeli REPRODUCTIVE ENDOCRINOLOGIST Primary Care Provider [phone] Cooper Adam MD Primary Care Provide r Faye Davey CNP Unavailable Encounter Details Date Type Department Care Team (Late st Contact Info) Description 05/16/2019 Procedure Pass [facility] Endoscopy Admitting Dept Virtual Department [address] [place] [address] Social History Tobacco Use Types Packs/Day Years [...] Info) Description 07/15/2024 Procedure Pass Echo Lab [address] [place] [address] 12/27/2024 2:[address] [facility] at [address] [place] [address] [address] Marleny Cunningham, RN 30 [place] [address] 01/19/2025 11:45 AM EDT Office Visit [facility] [address] [place] [address] 3rd Floor, [address] [place] [address] Rashi Garcia MD [address] [place] [address] [email or web address] 01/24/2025 2:[address] [facility] at [address] [place] [address] [address] 02/21/2025 1:[address] [facility] at [address] [place] [address] [address] 07/04/2026 1:45 PM EST Appointment Echo Lab [address] [place] [address] Julián Galvez MD [address] [place] [address], [address] [address] 07/18/2026 2:00 PM EDT Office Visit [facility] [address] [place] [address] 3rd [facility], [address] [place] [address] Julián Galvez MD [address] [place] [address], [address] [address] documented as of this encounter Visit Diagnoses Not on filedocumented in this encounter Care Teams Journeyman Patternmaker Relationship Specialty Start Date End Date Shiloh Gauthier MD [address] [place] [address] PCP - General Family Medicine 04/14/19 06/20/20 Malika James MD 110 [facility] [address] [place] [address] [email or web address] PCP - General 06/21/20 12/03/20 Venancio Lomeli NP [address] [place] [address] PCP - General Family Medicine 12/04/20 02/19/21 Cooper Adam MD [address] [address] PCP - General Family Medicine 02/20/21 Stephanie Andino DO [email or web address] Primary Oncologist Hematology and Oncology 03/10/1704/23 Salvador Jenkins MD 30 [place] [address] Primary Oncologist Medical Oncology 04/24/20 Faye Davey CNP 30 [place] [address] Nurse Practitioner Medical Oncology 02/27/21 documented as of this encounter Additional Source Comments The information contained in this document represents components of the legal health record. It is not the complete legal health record.[facility]
--- OUTSIDE RECORDS SUMMARY | 2024-12-27 10:47 | XMS_ITS | Encounter Summary ---
Author Organization [facility] Address [address] [place] [address] [place] [address] Phone Care Team Providers Care Chief Lock Operator Name Role Phone Salvador Jenkins MD Unavailable [phone] Malika James MD Primary Care Provider [phone] Venancio Lomeli NP Primary Care Provider [phone] Cooper Adam MD Primary Care Provide r Faye Davey BURLAPPER Unavailable Encounter Details Date Type Department Care Team (Late st Contact Info) Description 07/31/2020 Procedure Pass [facility] 30 [place] [address] Social History Tobacco Use Types Packs/Day Years [...] 07/15/2024 Procedure Pass Echo Lab [place] [address] [place] [address] 12/27/2024 2:20 PM EDT Infusion [facility] at [address] [address] Marleny Cunningham, FLAQUITA [address] [place] [address] 01/19/2025 11:45 AM EDT Office Visit [facility] [address], [address] [address] Rashi Garcia MD [address] [place] [address] 01/24/2025 2:20 PM EDT Infusion [facility] at [address] [address] 02/21/2025 1:00 PM EDT Infusion [facility] at [address] [address] 07/04/2026 1:45 PM EST Appointment Echo Lab [address] [address] Julián Galvez MD [address] [place] [address] 07/18/2026 2:00 PM EDT Office Visit [facility] [address], [address] [address] Julián Galvez MD [address] [place] [address] documented as of this encounter Visit Diagnoses Not on filedocumented in this encounter Care Teams Chief Lock Operator Relationship Specialty Start Date End Date Malika James MD 110 [facility] [address] [address] [email or web address] PCP - General 06/21/20 12/03/20 Venancio Lomeli NP [address] [place] [address] PCP - General Family Medicine 12/04/20 02/19/21 Cooper Adam MD [address] [address] PCP - General Family Medicine 02/20/21 Salvador Jenkins MD [address] [place] [address] Primary Oncologist Medical Oncology 04/24/20 Faye Davey CNP [address] [place] [address] Nurse Practitioner Medical Oncology 02/27/21 documented as of this encounter Additional Source Comments The information contained in this document represents components of the legal health record. It is not the complete legal health record.[facility]
--- OUTSIDE RECORDS SUMMARY | 2024-12-27 10:47 | XMS_ITS | Encounter Summary ---
Author Organization [facility] Address [address] [place] [address] [place] [address] Phone Care Team Providers Care Sales Representative Printing Supplies Name Role Phone Napoleon Michele MD Primary Care Provider [phone] Stephanie Andino DO Unavailable [phone] Shiloh Gauthier MD Primary Care Provider Salvador Jenkins MD Unavailable [phone] Malika James MD Primary Care Provider [phone] Venancio Lomeli NP Primary Care Provider [phone] Cooper Adam MD Primary Care Provide r Faye Davey CNP Unavailable Encounter Details Date Type Department Care Team (Late st Contact Info) Description 09/13/2018 Ancillary Orders Virtual Department 30 [place] [address] Bibi Tobias NP [address] [place] [phone] [email or web address] Bilateral lower extremity pain; Tenderness in limb [...] Info) Description 07/15/2024 Procedure Pass Echo Lab [address] [place] [address] 12/27/2024 2:20 PM EDT Infusion [facility] at [address] [address] Marleny Cunningham, FLAQUITA [address] [place] [address] 01/19/2025 11:45 AM EDT Office Visit [facility] [address] [place] [address] [place] [address], [address] [address] Rashi Garcia MD [address] [place] [address] 01/24/2025 2:20 PM EDT Infusion [facility] at [address] [address] 02/21/2025 1:00 PM EDT Infusion [facility] at [address] [address] 07/04/2026 1:45 PM EST Appointment Echo Lab [address] [place] [address] Julián Galvez MD [address] [place] [address] 07/18/2026 2:00 PM EDT Office Visit [facility] [address] [place] [address] 3rd [facility], [address] [address] Julián Galvez MD [address] [place] [address] [email or web address] documented as of this encounter Results * [...] No acute deep venousthrombosis. POS - [id number] us Bibi Tobias SOCK AND STOCKING IRONER CV US VASCULAR Final Result documented in this encounter Visit Diagnoses Diagnosis Bilateral lower extremity pain Tenderness in limb Bilateral lower extremity pain Tenderness in limb documented in this encounter Care Teams Sales Representative Printing Supplies Relationship Specialty Start Date End Date Napoleon Michele MD [address] [address] [email or web address] PCP - General 02/12/17 04/13/19 Shiloh Gauthier MD [address] [address] PCP - General Family Medicine 04/14/19 06/20/20 Malika James MD [address] [place] [address] [email or web address] PCP - General 06/21/20 12/03/20 Venancio Lomeli NP [facility] [place] [address] PCP - General Family Medicine 12/04/20 02/19/21 Cooper Adam MD [address] [place] [address] PCP - General Family Medicine 02/20/21 Stephanie Andino DO [address] [address] [email or web address] Primary Oncologist Hematology and Oncology 03/10/1704/23 Salvador Jenkins MD 30 [place] [address] [email or web address] Primary Oncologist Medical Oncology 04/24/20 Faye Davey CNP 30 [place] [address] [email or web address] Nurse Practitioner Medical Oncology 02/27/21 documented as of this encounter Additional Source Comments The information contained in this document represents components of the legal health record. It is not the complete legal health record.[facility]
--- OUTSIDE RECORDS SUMMARY | 2024-12-27 10:47 | XMS_ITS | Encounter Summary ---
Author Organization [facility] Address [address] [place] [address] Phone Care Team Providers Care Director Workers Compensation Name Role Phone Salvador Jenkins MD Unavailable [phone] Cooper Adam MD Primary Care Provide r Faye Davey DOCK GUARD Unavailable Encounter Details Date Type Department Care Team (Late st Contact Info) Description 11/22/2024 Orders Only [facility] at [address] [address] Katharine Tristan, [facility] [address] [place] [address] Vitamin B12 deficiency (Primary Dx) Social History [...] Info) Description 07/15/2024 Procedure Pass Echo Lab [address] [place] [address] 12/27/2024 2:20 PM EDT Infusion [facility] at [address] [address] Marleny Cunningham, RN [address] [place] [address] 01/19/2025 11:45 AM EDT Office Visit [facility] [address] [place] [address] 3rd [facility], [address] [address] Rashi Garcia MD [address] [place] [address] [email or web address] 01/24/2025 2:20 PM EDT Infusion [facility] at [address] [address] 02/21/2025 1:00 PM EDT Infusion [facility] at [address] [address] 07/04/2026 1:45 PM EST Appointment Echo Lab [address] [place] [address] Julián Galvez MD [address] [place] [address], [address] [address] 07/18/2026 2:00 PM EDT Office Visit [facility] [address] [place] [address] 3rd [facility], [address] [address] Julián Galvez MD [address] [place] [address], [address] [address] [email or web address] documented as of this encounter Results * (ABNORMAL) Comprehensive metabolic panel (11/29/2024 1:37 PM EDT) SODIUM 139 133 - 146 mmol/L POTASSIUM 3.3 3.3 - 5.1 mmol/L CHLORIDE 101 96 - 108 mmol/L CO2 25 21 - 35 mmol/L BUN 16 6 - 19 mg/dL CREATININE 1.00 0.5 - 1.5 mg/dL GLUCOSE 110(H) 70 - 99 mg/dL ALBUMIN 4.4 3.9 - 4.8 g/dL TOTAL PROTEIN 7.5 6.5 - 8.0 g/dL CALCIUM 9.4 8.4 - 10.3 mg/dL ALKALINE PHOSPHATASE 94 39 - 117 U/L TOTAL BILIRUBIN 0.6 0.0 - 1.2 mg/dL AST 18 0 - 37 U/L ALT 19 0 - 40 U/L GLOBULIN 3.1 1 - 4.8 g/dL EGFR 63 >59 mL/min/1.7 3m2 Comment:Estimated glomerular filtration rate calculated using the CKD-EPI refit equation. ANION GAP 16 10 - 20 mmol/L Blood 11/29/2024 1:37 PM EDT 11/29/2024 1:44 PM EDT us Salvador Jenkins MD LAB BLOOD ORDERABLES Final Res ult [address] [place] [address] * (ABNORMAL) CBC and differential (11/29/2024 1:37 PM EDT) WBC 11.95(H) 4.00 - 11.00 K/uL RBC 4.07 4.00 - 5.20 M/uL HGB 13.1 12.0 - 16.0 g/dL HCT 38.2 36.0 - 46.0 % PLT 278 150 - 450 K/uL MCV 93.9 80.0 - 100.0 fL MCH 32.2(H) 27.0 - 31.0 pg MCHC 34.3 32.0 - 36.0 g/dL RDW 12.0 11.5 - 14.5 % MPV 10.5 8.4 - 12.0 fL NRBC 0.00 0.00 /100 WBCs ABSOLUTE NRBC 0.00 0.00 K/uL DIFF METHOD Auto NEUTS 64.6 48.0 - 76.0 % LYMPHS 27.7 18.0 - 41.0 % MONOS 5.4 4.0 - 11.0 % EOS 1.5 0.0 - 5.0 % BASOS 0.5 0.0 - 1.5 % Granulocytes, immature (%) 0.3 0.0 - 0.9 % ABSOLUTE NEUTS 7.72(H) 1.92 - 7.60 K/uL ABSOLUTE LYMPHS 3.31 0.72 - 4.10 K/uL ABSOLUTE MONOS 0.64 0.16 - 1.10 K/uL ABSOLUTE EOS 0.18 0.00 - 0.50 K/uL ABSOLUTE BASOS 0.06 0.00 - 0.15 K/uL Granulocytes, immature 0.04 0.00 - 0.09 K/uL Blood 11/29/2024 1:37 PM EDT 11/29/2024 1:44 PM EDT us Salvador Jenkins MD LAB BLOOD ORDERABLES Final Res ult [address] [place] [address] * Vitamin B12 (11/29/2024 1:37 PM EDT) VITAMIN B12 1,000 232 - 1,245 pg/mL Blood 11/29/2024 1:37 PM EDT 11/29/2024 1:44 PM EDT us Salvador Jenkins MD LAB BLOOD ORDERABLES Final Res ult [address] [address] * (ABNORMAL) Ferritin (11/29/2024 1:37 PM EDT) FERRITIN 154(H) 13 - 150 ug/L Blood 11/29/2024 1:37 PM EDT 11/29/2024 1:44 PM EDT us Salvador Jenkins MD LAB BLOOD ORDERABLES Final Res ult Performing Organization Address City/[facility]/ZIP Co de Phone Number [address] [address] documented in this encounter Visit Diagnoses Diagnosis Vitamin B12 deficiency- Primary Other B-complex deficiencies documented in this encounter Care Teams Director Workers Compensation Relationship Specialty Start Date End Date Cooper Adam MD [address] [address] PCP - General Family Medicine 02/20/21 Salvador Jenkins MD [address] [place] [address] [email or web address] Primary Oncologist Medical Oncology 04/24/20 Faey Davey CNP [address] [place] [address] [email or web address] Nurse Practitioner Medical Oncology 02/27/21 documented as of this encounter Additional Source Comments The information contained in this document represents components of the legal health record. It is not the complete legal health record.[facility]
--- OUTSIDE RECORDS SUMMARY | 2024-12-27 10:47 | XMS_ITS | Encounter Summary ---
Author Organization [facility] Address [address] [place] [address] [place] [address] Phone Care Team Providers Care Legal Billing Coordinator Name Role Phone Napoleon Michele MD Primary Care Provider Stephanie Andino DO Unavailable [phone] Shiloh Gauthier MD Primary Care Provider Salvador Jenkins MD Unavailable [phone] Malika James MD Primary Care Provider [phone] Venancio Lomeli NP Primary Care Provider [phone] Cooper Adam MD Primary Care Provide r Faye Davey CNP Unavailable Encounter Details Date Type Department Care Team (Late st Contact Info) Description 12/14/2018 Procedure Pass [facility] [address] [place] [address] Social History Tobacco Use Types Packs/Day Years [...] Info) Description 07/15/2024 Procedure Pass Echo Lab [address] [place] [address] 12/27/2024 2:20 PM EDT Infusion [facility] at [address] [address] Marleny Cunningham, FLAQUITA [address] [place] [address] 01/19/2025 11:45 AM EDT Office Visit [facility] [address] [place] [address] 3rd Floor, [address] [address] Rashi Garcia MD [address] [place] [address] 01/24/2025 2:20 PM EDT Infusion [facility] at [address] [address] 02/21/2025 1:00 PM EDT Infusion [facility] at [address] [address] 07/04/2026 1:45 PM EST Appointment Echo Lab [address] [place] [address] Julián Galvez MD [address] [place] [address] 07/18/2026 2:00 PM EDT Office Visit [facility] [address] [place] [address] 3rd Floor, [address] [address] Julián Galvez MD [address] [place] [address] documented as of this encounter Visit Diagnoses Not on filedocumented in this encounter Care Teams Legal Billing Coordinator Relationship Specialty Start Date End Date Napoleon Michele MD [address] [address] [email or web address] PCP - General 02/12/17 04/13/19 Shiloh Gauthier MD [address], [place] [address] PCP - General Family Medicine 04/14/19 06/20/20 Malika James MD [address] [place] [address] [email or web address] PCP - General 06/21/20 12/03/20 Venancio Lomeli NP [address] [place] [address] PCP - General Family Medicine 12/04/20 02/19/21 Cooper Adam MD [address] [place] [address] PCP - General Family Medicine 02/20/21 Stephanie Andino DO [facility] [place] [address] [email or web address] Primary Oncologist Hematology and Oncology 03/10/1704/23 Salvador Jenkins MD [address] [place] [address] [email or web address] Primary Oncologist Medical Oncology 04/24/20 Faye Davey CNP [address] [place] [address] [email or web address] Nurse Practitioner Medical Oncology 02/27/21 documented as of this encounter Additional Source Comments The information contained in this document represents components of the legal health record. It is not the complete legal health record.[facility]
--- OUTSIDE RECORDS SUMMARY | 2024-12-27 10:47 | XMS_ITS | Encounter Summary ---
Author Organization [facility] Address [address] [place] [address] [place] [address] Phone Care Team Providers Care School Physical Therapist Name Role Phone Napoleon Michele MD Primary Care Provider [phone] Stephanie Andino DO Unavailable Shiloh Gauthier MD Primary Care Provider Salvador Jenkins MD Unavailable [phone] Malika James MD Primary Care Provider [phone] Venancio Lomeli NP Primary Care Provider [phone] Cooper Adam MD Primary Care Provide r Faye Davey CNP Unavailable Encounter Details Date Type Department Care Team (Latest Contact Info) Description 03/14/2019 Transcribe Orders [facility] [address] [address] Vicki Tuttle PA [address] [place], [place] [id number] Diverticulitis of large intestine without perforation or [...] Info) Description 07/15/2024 Procedure Pass Echo Lab [address] [place] [address] 12/27/2024 2:20 PM EDT Infusion [facility] at [address] [address] Marleny Cunningham, RN [address] [place] [address] 01/19/2025 11:45 AM EDT Office Visit [facility] [address] [place] [address] [place] [address], [address] [address] Rashi Garcia MD [address] [place] [address] 01/24/2025 2:[address] [facility] at [address] [address] 02/21/2025 1:00 PM EDT Infusion [facility] at [address] [address] 07/04/2026 1:45 PM EST Appointment Echo Lab [address] [place] [address] Julián Galvez MD [address] [place] [address] 07/18/2026 2:00 PM EDT Office Visit [facility] [address] [place] [address] 3rd [facility], [address] [address] Julián Galvez MD [address] [place] [address] [email or web address] documented as of this encounter Results * Comprehensive metabolic panel (03/14/2019 11:18 AM EST) SODIUM 138 133 - 146 mmol/L [facility] POTASSIUM 4.6 3.3 - 5.1 mmol/L [facility] CHLORIDE 100 96 - 108 mmol/L [facility] CO2 24 21 - 35 mmol/L [facility] BUN 18 6 - 19 mg/dL [facility] CREATININE 0.80 0.5 - 1.5 mg/dL [facility] GLUCOSE 88 70 - 99 mg/dL [facility] ALBUMIN 4.3 3.9 - 4.8 g/dL [facility] TOTAL PROTEIN 7.8 6.5 - 8.0 g/dL [facility] CALCIUM 9.8 8.4 - 10.3 mg/dL [facility] ALKALINE PHOSPHATASE 79 39 - 117 U/L [facility] TOTAL BILIRUBIN 0.3 0.0 - 1.2 mg/dL [facility] AST 19 0 - 37 U/L [facility] ALT 13 0 - 40 U/L [facility] GLOBULIN 3.5 1 - 4.8 g/dL [facility] EGFR 82 >59 mL/min/1.7 3m2 [facility] Comment:If patient is black, multiply result by 1.159. Estimated glomerular filtration rate calculated using the CKD-EPI equation. ANION GAP 19 10 - 20 mmol/L [facility] Blood 03/14/2019 11:1 8 AM EST 03/14/2019 11:24 AM EST us Vicki GUERRA LAB BLOOD ORDERABLES Final Result [facility] 30 [place] [address] * (ABNORMAL) CBC and differential (03/14/2019 11:18 AM EST) WBC 13.11(H) 3.40 - 11.20 K/uL [facility] RBC 3.65(L) 3.80 - 4.80 M/uL [facility] HGB 12.1 12.0 - 15.0 g/dL [facility] HCT 35.6(L) 36.0 - 46.0 % [facility] PLT 371 130 - 400 K/uL [facility] MCV 97.5 79.0 - 98.0 fL [facility] MCH 33.2 27.0 - 34.8 pg [facility] MCHC 34.0 31.5 - 36.0 g/dL [facility] RDW 12.6 10.8 - 14.6 % [facility] MPV 11.0 9.4 - 12.4 fl [facility] NRBC 0.00 0.00 /100 WBCs [facility] ABSOLUTE NRBC 0.00 0.00 K/uL [facility] DIFF METHOD Auto [facility] NEUTS 68.2 45.30 - 77.70 % [facility] LYMPHS 19.2 12.30 - 39.70 % [facility] MONOS 5.0 4.10 - 12.80 % [facility] EOS 6.5 0 - 7.2 % [facility] BASOS 0.7 0 - 2.80 % [facility] Granulocytes, immature (%) 0.4 0.0 - 0.9 % [facility] ABSOLUTE NEUTS 8.95(H) 1.40 - 7.70 K/uL [facility] ABSOLUTE LYMPHS 2.52 0.60 - 3.20 K/uL [facility] ABSOLUTE MONOS 0.65(H) 0.11 - 0.59 K/uL [facility] ABSOLUTE EOS 0.85(H) 0.01 - 0.50 K/uL [facility] ABSOLUTE BASOS 0.09(H) 0.00 - 0.08 K/uL [facility] Granulocytes, immature 0.05 0.00 - 0.05 K/uL [facility] Blood 03/14/2019 11:1 8 AM EST 03/14/2019 11:24 AM EST us Vicki GUERRA LAB BLOOD ORDERABLES Final Result [address] [address] documented in this encounter Visit Diagnoses Diagnosis Diverticulitis of large intestine without perforation or abscess without bleeding- Primary Nausea Nausea alone documented in this encounter Care Teams School Physical Therapist Relationship Specialty Start Date End Date Napoleon Michele MD [address] [place] [address] [email or web address] PCP - General 02/12/17 04/13/19 Shiloh Gauthier MD [address] [place] [address] PCP - General Family Medicine 04/14/19 06/20/20 Malika James MD [address] [place] [address] [email or web address] PCP - General 06/21/20 12/03/20 Venancio Lomeli NP [address] [place] [address] PCP - General Family Medicine 12/04/20 02/19/21 Cooper Adam MD [address] [address] PCP - General Family Medicine 02/20/21 Stephanie Andino DO [address] [place] [address] [email or web address] Primary Oncologist Hematology and Oncology 03/10/1704/23 Salvador Jenkins MD [address] [place] [address] [email or web address] Primary Oncologist Medical Oncology 04/24/20 Faye Davey CNP [address] [place], [place] [address] [email or web address] Nurse Practitioner Medical Oncology 02/27/21 documented as of this encounter Additional Source Comments The information contained in this document represents components of the legal health record. It is not the complete legal health record.[facility]
--- OUTSIDE RECORDS SUMMARY | 2024-12-27 10:47 | XMS_ITS | Encounter Summary ---
Author Organization [facility] Address [address] [place] [address] [place] [address] Phone Care Team Providers Care Electrical Engineering Teacher Name Role Phone Napoleon Michele MD Primary Care Provider [phone] Stephanie Andino DO Unavailable [phone] Shiloh Gauthier MD Primary Care Provider Salvador Jenkins MD Unavailable [phone] Malika James MD Primary Care Provider [phone] Venancio Lomeli NP Primary Care Provider [phone] Cooper Adam MD Primary Care Provide r Faye Davey INSURANCE SPECIALIST Unavailable Encounter Details Date Type Department Care Team (Latest Contact Info) Description 02/10/2019 Transcribe Orders Virtual Department [address] [place], [place] [phone] Sarthak Armstrong MD [address] [place] [address], [address] [place], [place] [id number] [email or web address] TIA (transient ischemic attack) (Primary Dx) [...] Info) Description 07/15/2024 Procedure Pass Echo Lab [address] [place] [address] 12/27/2024 2:20 PM EDT Infusion [facility] at [address] [address] Marleny Cunningham, FLAQUITA [address] [place] [address] 01/19/2025 11:45 AM EDT Office Visit [facility] [address] [place] [address] [place] [address], [address] [address] Rashi Garcia MD [address] [place] [address] 01/24/2025 2:20 PM EDT Infusion [facility] at [address] [address] 02/21/2025 1:00 PM EDT Infusion [facility] [place] at [address] [address] 07/04/2026 1:45 PM EST Appointment Echo Lab [address] [place] [address] Julián Galvez MD [address] [place] [address] 07/18/2026 2:00 PM EDT Office Visit [facility] [address] [place] [address] 3rd [facility], [address] [address] Julián Galvez MD [address] [place] [address] [place] [address] [email or web address] documented as of this encounter Results * [...] ischemia documented in this encounter Care Teams Electrical Engineering Teacher Relationship Specialty Start Date End Date Napoleon Michele MD [address] [address] [email or web address] PCP - General 02/12/17 04/13/19 Shiloh Gauthier MD [address] [place] [address] PCP - General Family Medicine 04/14/19 06/20/20 Malika James MD [address] [address] [email or web address] PCP - General 06/21/20 12/03/20 Venancio Lomeli NP [address] [place] [address] PCP - General Family Medicine 12/04/20 02/19/21 [facility] [address] [address] PCP - General Family Medicine 02/20/21 Stephanie Andino DO [address] [address] [email or web address] Primary Oncologist Hematology and Oncology 03/10/1704/23 Salvador Jenkins MD [address] [place] [address] Primary Oncologist Medical Oncology 04/24/20 Faye Davey CNP [address] [place] [address] Nurse Practitioner Medical Oncology 02/27/21 documented as of this encounter Additional Source Comments The information contained in this document represents components of the legal health record. It is not the complete legal health record.[facility]
--- OUTSIDE RECORDS SUMMARY | 2024-12-27 10:47 | XMS_ITS | Encounter Summary ---
Author Organization [facility] Address [address] [place] [address] Phone Care Team Providers Care Drupal Developer Name Role Phone Napoleon Michele MD Primary Care Provider [phone] Stephanie Andino DO Unavailable [phone] Shiloh Gauthier MD Primary Care Provider Salvador Jenkins MD Unavailable [phone] Malika James MD Primary Care Provider [phone] Venancio Lomeli NP Primary Care Provider [phone] Cooper Adam MD Primary Care Provide r Faye Davey CNP Unavailable Reason for Referral * MRI/CAT Scan - Closed Specialty Diagnoses / Procedures Referred By Contceline t Referred To Contact Radiology Diagnoses Weakness Procedures MRI Brain Bibi Tobias NP Phone: tel: fax: [email or web address] Referral ID Status Reason Start Date Expiration Date Visits Re quested Visits Authorized [id number] Closed 12/14/2018 12/14/2019 1 1 Encounter Details Date Type Department Care Team ([facility] Contact Info) Description 12/14/2018 Ancillary Orders Virtual Department [address] [place] [address] Bibi Tobias NP [address] [place] [phone] [email or web address] Weakness Social History Tobacco Use Types Packs/Day [...] Info) Description 07/15/2024 Procedure Pass Echo Lab [address] [place] [address] 12/27/2024 2:20 PM EDT Infusion [facility] at [address] [address] Marleny Cunningham, FLAQUITA [address] [place] [address] 01/19/2025 11:45 AM EDT Office Visit [facility] [address] [place] [address] 3rd Floor, [address] [place] [address] Rashi Garcia MD [address] [place] [address], [address] [address] 01/24/2025 2:20 PM EDT Infusion [facility] at [address] [address] 02/21/2025 1:00 PM EDT Infusion [facility] at [address] [address] 07/04/2026 1:45 PM EST Appointment Echo Lab [address] [place] [address] Julián Galvez MD [address] [facility], [address] [place] [address] [email or web address] 07/18/2026 2:00 PM EDT Office Visit [facility] [address] [place] [address] 3rd Floor, [address] [place] [address] Julián Galvez MD [address] [place] [address], [address] [place] [address] [email or web address] documented as of this encounter Results * [...] fatigue documented in this encounter Care Teams Drupal Developer Relationship Specialty Start Date End Date Napoleon Michele MD [address] [address] [email or web address] PCP - General 02/12/17 04/13/19 Shiloh [facility]auth[facility] MD [facility] [place] [address] PCP - General Family Medicine 04/14/19 06/20/20 Malika James MD [address] [address] [email or web address] PCP - General 06/21/20 12/03/20 Venancio Lomeli NP [address] [place] [address] PCP - General Family Medicine 12/04/20 02/19/21 Cooper Adam MD [address] [address] PCP - General Family Medicine 02/20/21 Stephanie Andino DO [address] [address] [email or web address] Primary Oncologist Hematology and Oncology 03/10/1704/23 Salvador Jenkins MD [address] [place] [address] Primary Oncologist Medical Oncology 04/24/20 Faye Davey CNP [address] [place] [address] [email or web address] Nurse Practitioner Medical Oncology 02/27/21 documented as of this encounter Additional Source Comments The information contained in this document represents components of the legal health record. It is not the complete legal health record.[facility]
--- OUTSIDE RECORDS SUMMARY | 2024-12-27 10:47 | XMS_ITS | Encounter Summary ---
Author Organization [facility] Address [address] [place] [address] [place] [address] Phone Care Team Providers Care M1A1 Tank Crewman Name Role Phone Napoleon Michele MD Primary Care Provider [phone] Stephanie Andino DO Unavailable [phone] Shiloh Gauthier MD Primary Care Provider Salvador Jenkins MD Unavailable [phone] Malika James MD Primary Care Provider [phone] Venancio Lomeli NP Primary Care Provider [phone] Cooper Adam MD Primary Care Provide r Faye Davey CNP Unavailable Encounter Details Date Type Department Care Team (Late st Contact Info) Description 01/21/2018 Procedure Pass [facility], [facility] - [address] [place] [address] Social History Tobacco Use Types Packs/Day Years [...] Description 07/15/2024 Procedure Pass Echo Lab [address] [place] [address] 12/27/2024 2:20 PM EDT Infusion [facility] at [address] [address] Marleny Cunningham, FLAQUITA 30 [place] [address] 01/19/2025 11:45 AM EDT Office Visit [facility] [address] [place] [address] 3rd Floor, [address] [place] [address] Rashi Garcia MD [address] [place] [address] [email or web address] 01/24/2025 2:20 PM EDT Infusion [facility] at [address] [address] 02/21/2025 1:00 PM EDT Infusion [facility] at [address] [address] 07/04/2026 1:45 PM EST Appointment Echo Lab [address] [address] Julián Galvez MD [address] [place] [address] 07/18/2026 2:00 PM EDT Office Visit [facility] [address] [place] [address] 3rd [facility], [address] [address] Julián Galvez MD [address] [place] [address] documented as of this encounter Visit Diagnoses Not on filedocumented in this encounter Care Teams M1A1 Tank Crewman Relationship Specialty Start Date End Date Napoleon Michele MD [address] [address] [email or web address] PCP - General 02/12/17 04/13/19 Shiloh Gauthier MD [address] [place] [address] PCP - General Family Medicine 04/14/19 06/20/20 Malika James MD [address] [place] [address] [email or web address] PCP - General 06/21/20 12/03/20 Venancio Lomeli NP [address] [place] [address] PCP - General Family Medicine 12/04/20 02/19/21 Cooper Adam MD [address] [address] PCP - General Family Medicine 02/20/21 Stephanie Andino DO [address] [address] [email or web address] Primary Oncologist Hematology and Oncology 03/10/1704/23 Salvador Jenkins MD 30 [place] [address] [email or web address] Primary Oncologist Medical Oncology 04/24/20 Faye Davey CNP 30 [place] [address] Nurse Practitioner Medical Oncology 02/27/21 documented as of this encounter Additional Source Comments The information contained in this document represents components of the legal health record. It is not the complete legal health record.[facility]
--- OUTSIDE RECORDS SUMMARY | 2024-12-27 10:47 | XMS_ITS | Encounter Summary ---
Author Organization [facility] Address [address] [place] [address] [place] [address] Phone Care Team Providers Care Film Painter Name Role Phone Napoleon Michele MD Primary Care Provider [phone] Stephanie Andino DO Unavailable Shiloh Gauthier MD Primary Care Provider Salvador Jenkins MD Unavailable [phone] Malika James MD Primary Care Provider [phone] Venancio Lomeli NP Primary Care Provider [phone] Cooper Adam MD Primary Care Provide r Faye Davey CNP Unavailable Encounter Details Date Type Department Care Team (Latest Contact Info) Description 04/06/2019 Transcribe Orders [facility] [address] [id number] Vicki Tuttle PA 10 [place], [place] [id number] Diverticulitis of large intestine without perforation or [...] Description 07/15/2024 Procedure Pass Echo Lab [address] [place] [address] 12/27/2024 2:20 PM EDT Infusion [facility] at [address] [address] Marleny Cunningham, RN [address] [place] [address] 01/19/2025 11:45 AM EDT Office Visit [facility] [address] [place] [address] [place] [address], [address] [address] Rashi Garcia MD [address] [place] [address] 01/24/2025 2:[address] [facility] at [address] [address] 02/21/2025 1:00 PM EDT Infusion [facility] Center at [address] [address] 07/04/2026 1:45 PM EST Appointment Echo Lab [address] [place] [address] Julián Galvez MD [address] [place] [address] 07/18/2026 2:00 PM EDT Office Visit [facility] [address] [place] [address] 3rd [facility], [address] [address] Julián Galvez MD [address] [place] [address] [email or web address] documented as of this encounter Results * C-Reactive Protein (04/06/2019 10:52 AM EST) C REACTIVE PROTEIN 2.5 0.0 - 4.0 mg/L [facility] Blood 04/06/2019 10:5 2 AM EST 04/06/2019 10:56 AM EST us Vicki [facility] BLOOD ORDERABLES Final Result [facility] [address] [place] [address] * (ABNORMAL) Comprehensive metabolic panel (04/06/2019 10:52 AM EST) SODIUM 141 133 - 146 mmol/L [facility] POTASSIUM 4.3 3.3 - 5.1 mmol/L [facility] CHLORIDE 103 96 - 108 mmol/L [facility] CO2 22 21 - 35 mmol/L [facility] BUN 14 6 - 19 mg/dL [facility] CREATININE 0.70 0.5 - 1.5 mg/dL [facility] GLUCOSE 100(H) 70 - 99 mg/dL [facility] ALBUMIN 4.3 3.9 - 4.8 g/dL [facility] TOTAL PROTEIN 7.7 6.5 - 8.0 g/dL [facility] CALCIUM 10.0 8.4 - 10.3 mg/dL [facility] ALKALINE PHOSPHATASE 80 39 - 117 U/L [facility] TOTAL BILIRUBIN 0.2 0.0 - 1.2 mg/dL [facility] AST 24 0 - 37 U/L [facility] ALT 20 0 - 40 U/L [facility] GLOBULIN 3.4 1 - 4.8 g/dL [facility] EGFR 96 >59 mL/min/1.7 3m2 [facility] Comment:If patient is black, multiply result by 1.159. Estimated glomerular filtration rate calculated using the CKD-EPI equation. ANION GAP 20 10 - 20 mmol/L [facility] Blood 04/06/2019 10:5 2 AM EST 04/06/2019 10:56 AM EST us Vicki [facility] BLOOD ORDERABLES Final Result [facility] [address] [place] [address] * (ABNORMAL) CBC and differential (04/06/2019 10:52 AM EST) WBC 11.26(H) 3.40 - 11.20 K/uL [facility] RBC 3.90 3.80 - 4.80 M/uL [facility] HGB 12.9 12.0 - 15.0 g/dL [facility] HCT 37.6 36.0 - 46.0 % [facility] PLT 343 130 - 400 K/uL [facility] MCV 96.4 79.0 - 98.0 fL [facility] MCH 33.1 27.0 - 34.8 pg [facility] MCHC 34.3 31.5 - 36.0 g/dL [facility] RDW 12.2 10.8 - 14.6 % [facility] MPV 11.2 9.4 - 12.4 fl [facility] NRBC 0.00 0.00 /100 WBCs [facility] ABSOLUTE NRBC 0.00 0.00 K/uL [facility] DIFF METHOD Auto [facility] NEUTS 66.8 45.30 - 77.70 % [facility] LYMPHS 20.7 12.30 - 39.70 % [facility] MONOS 6.6 4.10 - 12.80 % [facility] EOS 4.9 0 - 7.2 % [facility] BASOS 0.7 0 - 2.80 % [facility] Granulocytes, immature (%) 0.3 0.0 - 0.9 % [facility] ABSOLUTE NEUTS 7.53 1.40 - 7.70 K/uL [facility] ABSOLUTE LYMPHS 2.33 0.60 - 3.20 K/uL [facility] ABSOLUTE MONOS 0.74(H) 0.11 - 0.59 K/uL [facility] ABSOLUTE EOS 0.55(H) 0.01 - 0.50 K/uL [facility] ABSOLUTE BASOS 0.08 0.00 - 0.08 K/uL [facility] Granulocytes, immature 0.03 0.00 - 0.05 K/uL [facility] Blood 04/06/2019 10:5 2 AM EST 04/06/2019 10:56 AM EST us Vicki [facility]ER[facility] BLOOD ORDERABLES Final Result [facility] [address] [place] [address] documented in this encounter Visit Diagnoses Diagnosis Diverticulitis of large intestine without perforation or abscess without bleeding- Primary Nausea Nausea alone documented in this encounter Care Teams Film Painter Relationship Specialty Start Date End Date Napoleon Michele MD [facility] [place] [address] [email or web address] PCP - General 02/12/17 04/13/19 Shiloh Gauthier MD [address] [place] [address] PCP - General Family Medicine 04/14/19 06/20/20 Malika James MD [address] [place] [address] [email or web address] PCP - General 06/21/20 12/03/20 Venancio Lomeli NP [facility] [place] [address] PCP - General Family Medicine 12/04/20 02/19/21 [facility] [address] [address] PCP - General Family Medicine 02/20/21 Stephanie Andino DO [address] [address] [email or web address] Primary Oncologist Hematology and Oncology 03/10/1704/23 Salvador Jenkins MD [address] [place] [address] Primary Oncologist Medical Oncology 04/24/20 Faye Davey CNP [address] [place] [address] Nurse Practitioner Medical Oncology 02/27/21 documented as of this encounter Additional Source Comments The information contained in this document represents components of the legal health record. It is not the complete legal health record.[facility]
--- OUTSIDE RECORDS SUMMARY | 2024-12-27 10:47 | XMS_ITS | Encounter Summary ---
Author Organization [facility] Address [address] [place] [address] [place] [address] Phone Care Team Providers Care Spouter Name Role Phone Napoleon Michele MD Primary Care Provider [phone] Stephanie Andino DO Unavailable Shiloh Gauthier MD Primary Care Provider Salvador Jenkins MD Unavailable Malika James MD Primary Care Provider [phone] Venancio Lomeli NP Primary Care Provider [phone] Cooper Adam MD Primary Care Provide r Faye Davey PRACTICE CLINICIAN Unavailable Encounter Details Date Type Department Care Team (Latest Contact Info) Description 02/25/2019 Ancillary Orders [facility] 30 [place] [address] Bibi Tobias NP [address] [place] [phone] [email or web address] Cervical spondylosis without myelopathy; Thoracic spondylosis without [...] Info) Description 07/15/2024 Procedure Pass Echo Lab [address] [place] [address] 12/27/2024 2:20 PM EDT Infusion [facility] at [address] [address] Marleny Cunningham, FLAQUITA [address] [place] [address] 01/19/2025 11:45 AM EDT Office Visit [facility] [address] [place] [address] 3rd [facility], [address] [place] [address] Rashi Garcia MD [address] [place] [address], [address] [address] 01/24/2025 2:20 PM EDT Infusion [facility] at [address] [address] 02/21/2025 1:00 PM EDT Infusion [facility] at [address] [address] 07/04/2026 1:45 PM EST Appointment Echo Lab [address] [place] [address] Julián Galvez MD [address] [place] [address], [address] [address] 07/18/2026 2:00 PM EDT Office Visit [facility] [address] [place] [address] 3rd [facility], [address] [place] [address] Julián Galvez MD 22 [facility] [place], [address] [place] [address] [email or web address] documented as of this encounter Results * [...] neck pain POS - [id number] Bibi Tobias EVENT PRODUCER IMG XR SPINE Final Result * XR [...] without compression fracture evident. Procedure Note Shiv Copealnd MD - 02/25/2019 COMPARISON: Chest x-ray March [...] no trauma. POS - [id number] Bibi Tobias NP IMG XR LOWER EXTREMITY [...] myelopathy documented in this encounter Care Teams Spouter Relationship Specialty Start Date End Date Napoleon Michele MD [address] [address] [email or web address] PCP - General 02/12/17 04/13/19 Shiloh Gauthier MD [address] [place] [address] PCP - General Family Medicine 04/14/19 06/20/20 Malika James MD [address] [place] [address] [place] [address] [email or web address] PCP - General 06/21/20 12/03/20 Venancio Lomeli NP [address] [place] [address] PCP - General Family Medicine 12/04/20 02/19/21 Cooper Adam MD [address] [address] PCP - General Family Medicine 02/20/21 Stephanie Andino DO [address] [address] [email or web address] Primary Oncologist Hematology and Oncology 03/10/1704/23 Salvador Jenkins MD 30 [place] [address] [email or web address] Primary Oncologist Medical Oncology 04/24/20 Faye Davey CNP 30 [place] [address] Nurse Practitioner Medical Oncology 02/27/21 documented as of this encounter Additional Source Comments The information contained in this document represents components of the legal health record. It is not the complete legal health record.[facility]
--- OUTSIDE RECORDS SUMMARY | 2024-12-27 10:47 | XMS_ITS | Encounter Summary ---
Author Organization [facility] Address [address] [place] [address] [place] [address] Phone Care Team Providers Care Laboratory Sampler Name Role Phone Napoleon Michele MD Primary Care Provider [phone] Stephanie Andino DO Unavailable [phone] Shiloh Gauthier MD Primary Care Provider Salvador Jenkins MD Unavailable [phone] Malika James MD Primary Care Provider [phone] Venancio Lomeli NP Primary Care Provider [phone] Cooper Adam MD Primary Care Provide r Faye Davey CNP Unavailable Encounter Details Date Type Department Care Team (Latest Contact Info) Description 02/03/2018 Ancillary Orders Virtual Department 30 [place] [address] Bibi Tobias NP [address] [place] [phone] [email or web address] Social History Tobacco Use Types [...] Info) Description 07/15/2024 Procedure Pass Echo Lab [address] [place] [address] 12/27/2024 2:20 PM EDT Infusion [facility] at [address] [address] Marleny Cunningham, FLAQUITA [address] [place] [address] 01/19/2025 11:45 AM EDT Office Visit [facility] [address] [place] [address] [place] [address], [address] [address] Rashi Garcia MD [address] [place] [address] 01/24/2025 2:20 PM EDT Infusion [facility] at [address] [address] 02/21/2025 1:00 PM EDT Infusion [facility] at [address] [address] 07/04/2026 1:45 PM EST Appointment Echo Lab [address] [place] [address] Julián Galvez MD [address] [place] [address] 07/18/2026 2:00 PM EDT Office Visit [facility] [address] [place] [address] [facility], [address] [address] Julián Galvez MD [address] [place] [address] [email or web address] documented as of this encounter Visit Diagnoses Diagnosis Lumbar radiculopathy Thoracic or lumbosacral neuritis or radiculitis, unspecified documented in this encounter Care Teams Laboratory Sampler Relationship Specialty Start Date End Date Napoleon Michele MD [address] [address] [email or web address] PCP - General 02/12/17 04/13/19 Shiloh Gauthier MD [address] [place] [address] PCP - General Family Medicine 04/14/19 06/20/20 Malika James MD [address] [place] [address] [email or web address] PCP - General 06/21/20 12/03/20 Venancio Lomeli NP [address] [place] [address] PCP - General Family Medicine 12/04/20 02/19/[address] [facility] [address] [address] PCP - General Family Medicine 02/20/21 Stephanie Andino DO [address] [address] [email or web address] Primary Oncologist Hematology and Oncology 03/10/1704/23 Salvador Jenkins MD 30 [place] [address] [email or web address] Primary Oncologist Medical Oncology 04/24/20 Faye Davey CNP [address] [place], [place] [address] [email or web address] Nurse Practitioner Medical Oncology 02/27/21 documented as of this encounter Additional Source Comments The information contained in this document represents components of the legal health record. It is not the complete legal health record.[facility]
--- OUTSIDE RECORDS SUMMARY | 2024-12-27 10:47 | XMS_ITS | Encounter Summary ---
Author Organization [facility] Address [address] [place] [address] [place] [address] Phone Care Team Providers Care Porcelain Enameler Name Role Phone Napoleon Michele MD Primary Care Provider Stephanie Andino DO Unavailable [phone] Shiloh Gauthier MD Primary Care Provider Salvador Jenkins MD Unavailable [phone] Malika James MD Primary Care Provider [phone] Venancio Lomeli NP Primary Care Provider [phone] Cooper Adam MD Primary Care Provide r Faye Davey CNP Unavailable Encounter Details Date Type Department Care Team (Late st Contact Info) Description 12/01/2018 Procedure Pass [facility] Endoscopy Admitting Dept Virtual Department 30 [place], [place] [id number] Social History Tobacco Use Types Packs/Day Years [...] Info) Description 07/15/2024 Procedure Pass Echo Lab [address] [place] [address] 12/27/2024 2:[address] [facility] at [address] [address] Marleny Cunningham, FLAQUITA [address] [place] [address] 01/19/2025 11:45 AM EDT Office Visit [facility] [address] [place] [address] 3rd Floor, [address] [address] Rashi Garcia MD [address] [place] [address] 01/24/2025 2:[address] [facility] at [address] [address] 02/21/2025 1:[address] [facility] at [address] [address] 07/04/2026 1:45 PM EST Appointment Echo Lab [address] [place] [address] Julián Galvez MD [address] [place] [address] 07/18/2026 2:00 PM EDT Office Visit [facility] [address] [place] [address] 3rd Floor, [address] [address] Julián Galvez MD [address] [place] [address] documented as of this encounter Visit Diagnoses Not on filedocumented in this encounter Care Teams Porcelain Enameler Relationship Specialty Start Date End Date Napoleon Michele [place] [address] [email or web address] PCP - General 02/12/17 04/13/19 Shiloh Gauthier MD [address] [place] [address] PCP - General Family Medicine 04/14/19 06/20/20 Malika James MD [address] [place] [address] [email or web address] PCP - General 06/21/20 12/03/20 Venancio Lomeli NP [address] [place] [address] PCP - General Family Medicine 12/04/20 02/19/21 Cooper Adam MD [address] [place] [address] PCP - General Family Medicine 02/20/21 Stephanie Andino DO [address] [place] [address] [email or web address] Primary Oncologist Hematology and Oncology 03/10/1704/23 Salvador Jenkins MD [address] [place] [address] [email or web address] Primary Oncologist Medical Oncology 04/24/20 Faye Davey CNP [address] [place] [address] [email or web address] Nurse Practitioner Medical Oncology 02/27/21 documented as of this encounter Additional Source Comments The information contained in this document represents components of the legal health record. It is not the complete legal health record.[facility]
--- OUTSIDE RECORDS SUMMARY | 2024-12-27 10:47 | XMS_ITS | Encounter Summary ---
Author Organization [facility] Address [address] [facility] [address] [place] [address] Phone Care Team Providers Care Dental Therapist Name Role Phone Salvador Jenkins MD Unavailable [phone] Cooper Adam MD Primary Care Provide r Faye Davey SOLVENT STATION ATTENDANT Unavailable Encounter Details Date Type Department Care Team (Late st Contact Info) Description 11/01/2024 Telephone [facility] IP Oncology - Virtual Department 30 [place] [address] Marleny Cunningham, RN 30 [place] [address] [email or web address] Social History Tobacco Use Types Packs/Day Years [...] Info) Description 07/15/2024 Procedure Pass Echo Lab [address] [place] [address] 12/27/2024 2:20 PM EDT Infusion [facility] at [address] [address] Marleny Cunningham, RN [address] [place] [address] 01/19/2025 11:45 AM EDT [facility] [address] [place] [address] 3rd [facility], [address] [address] Rashi Garcia MD [address] [place] [address] 01/24/2025 2:20 PM EDT Infusion [facility] at [address] [address] 02/21/2025 1:00 PM EDT Infusion [facility] at [address] [address] 07/04/2026 1:45 PM EST Appointment Echo Lab [address] [place] [address] Julián Galvez MD [address] [place] [address], [address] [address] 07/18/2026 2:00 PM EDT [facility] [address] [place] [address] 3rd [facility], [address] [address] Julián Galvez MD [address] [place] [address], [address] [address] documented as of this encounter Visit Diagnoses Not on filedocumented in this encounter Care Teams Dental Therapist Relationship Specialty Start Date End Date Cooper Adam MD [address] [address] PCP - General Family Medicine 02/20/21 Salvador Jenkins MD [address] [place] [address] Primary Oncologist Medical Oncology 04/24/20 Faye Davey CNP [address] [place] [address] Nurse Practitioner Medical Oncology 02/27/21 documented as of this encounter Additional Source Comments The information contained in this document represents components of the legal health record. It is not the complete legal health record.[facility]
--- OUTSIDE RECORDS SUMMARY | 2024-12-27 10:47 | XMS_ITS | Encounter Summary ---
Author Organization [facility] Address [address] [place] [address] [place] [address] Phone Care Team Providers Care Facilities Supervisor Name Role Phone Napoleon Michele MD Primary Care Provider [phone] Stephanie Andino DO Unavailable [phone] Shiloh Gauthier MD Primary Care Provider Salvador Jenkins MD Unavailable [phone] Malika James MD Primary Care Provider [phone] Venancio Loemli NP Primary Care Provider [phone] Cooper Adam MD Primary Care Provide r [...] Expiration Date Visits Re quested Visits Authorized [id number] Closed 04/07/2019 04/06/2020 1 1 Encounter Details Date Type Department Care Team (Latest Contact Info) Description 04/07/2019 Transcribe Orders Virtual Department [address] [place] [address] Vicki Tuttle PA [address] [place] [address] Diverticulitis large intestine w/o perforation or abscess [...] Info) Description 07/15/2024 Procedure Pass Echo Lab [address] [address] 12/27/2024 2:20 PM EDT Infusion [facility] at [address] [address] Marleny Cunningham, FLAQUITA [address] [place] [address] 01/19/2025 11:45 AM EDT Office Visit [facility] [address] [place] [address] 3rd Floor, [address] [place] [address] Rashi Garcia MD [address] [place] [address] 01/24/2025 2:20 PM EDT Infusion [facility] at [address] [address] 02/21/2025 1:00 PM EDT Infusion [facility] [place] at [address] [address] 07/04/2026 1:45 PM EST Appointment Echo Lab [address] [place] [address] Julián Galvez MD 22 [facility], [address] [place] [address] [email or web address] 07/18/2026 2:00 PM EDT Office Visit [facility] [address] [place] [address] 3rd Floor, [address] [place] [address] Julián Galvez MD [address] [place] [address], [address] [place] [address] [email or web address] documented as of this encounter Results * [...] TOTAL CTDIvol: 14.10 mGy POS - [id number] us Vicki GUERRA IMG CT ABD/PELVIS Final Res ult documented in this encounter Visit Diagnoses Diagnosis Diverticulitis large intestine w/o perforation or abscess w/o bleeding- Primary Nausea Nausea alone Diverticulitis large intestine w/o perforation or abscess w/o bleeding Nausea Nausea alone documented in this encounter Care Teams Facilities Supervisor Relationship Specialty Start Date End Date Napoleon Michele MD [address] [address] [email or web address] PCP - General 02/12/17 04/13/19 Shiloh Gauthier MD [address] [place] [address] PCP - General Family Medicine 04/14/19 06/20/20 Malika James MD [address] [place] [address] [email or web address] PCP - General 06/21/20 12/03/20 Venancio Lomeli NP [address] [place] [address] PCP - General Family Medicine 12/04/20 02/19/21 Cooper Adam MD [address] [address] PCP - General Family Medicine 02/20/21 Stephanie Andino DO [address] [address] [email or web address] Primary Oncologist Hematology and Oncology 03/10/1704/23 Salvador Jenkins MD 30 [place] [address] [email or web address] Primary Oncologist Medical Oncology 04/24/20 Faye Davey CNP 30 [place] [address] Nurse Practitioner Medical Oncology 02/27/21 documented as of this encounter Additional Source Comments The information contained in this document represents components of the legal health record. It is not the complete legal health record.[facility]
--- OUTSIDE RECORDS SUMMARY | 2024-12-27 10:47 | XMS_ITS | Encounter Summary ---
Author Organization [facility] Address [address] [place] [address] [place] [address] Phone Care Team Providers Care Terminal Block Assembler Name Role Phone Napoleon Michele MD Primary Care Provider [phone] Stephanie Andino DO Unavailable Shiloh Gauthier MD Primary Care Provider Salvador Jenkins MD Unavailable [phone] Malika James MD Primary Care Provider [phone] Venancio Lomeli NP Primary Care Provider [phone] Cooper Adam MD Primary Care Provide r Faye Davey CNP Unavailable Encounter Details Date Type Department Care Team (Late st Contact Info) Description 11/01/2018 Procedure Pass [facility] Endoscopy Admitting Dept Virtual Department 30 [place], [place] [id number] Social History Tobacco Use Types Packs/Day Years [...] Info) Description 07/15/2024 Procedure Pass Echo Lab [address] [place] [address] 12/27/2024 2:20 PM EDT Infusion [facility] Cancer Center at [address] [address] Marleny Cunningham, FLAQUITA 30 [place] [address] 01/19/2025 11:45 AM EDT Office Visit [facility] [address] [place] [address] 3rd Floor, [address] [place] [address] Rashi Garcia MD [address] [place] [address] [email or web address] 01/24/2025 2:20 PM EDT Infusion [facility] at [address] [address] 02/21/2025 1:00 PM EDT Infusion [facility] at [address] [address] 07/04/2026 1:45 PM EST Appointment Echo Lab [address] [address] Julián Galvez MD [address] [place] [address] 07/18/2026 2:00 PM EDT Office Visit [facility] [address] [place] [address] 3rd [facility], [address] [address] Julián Galvez MD [address] [place] [address] documented as of this encounter Visit Diagnoses Not on filedocumented in this encounter Care Teams Terminal Block Assembler Relationship Specialty Start Date End Date Napoleon Michele MD [address] [address] [email or web address] PCP - General 02/12/17 04/13/19 Shiloh Gauthier MD [address] [place] [address] PCP - General Family Medicine 04/14/19 06/20/20 Malika James MD [address] [place] [address] [email or web address] PCP - General 06/21/20 12/03/20 Venancio Lomeli NP [address] [place] [address] PCP - General Family Medicine 12/04/20 02/19/21 Cooper Adam MD [address] [address] PCP - General Family Medicine 02/20/21 Stephanie Andino DO [address] [address] [email or web address] Primary Oncologist Hematology and Oncology 03/10/1704/23 Salvador Jenkins MD 30 [place] [address] [email or web address] Primary Oncologist Medical Oncology 04/24/20 Faye Davey CNP 30 [place] [address] Nurse Practitioner Medical Oncology 02/27/21 documented as of this encounter Additional Source Comments The information contained in this document represents components of the legal health record. It is not the complete legal health record.[facility]
--- OUTSIDE RECORDS SUMMARY | 2024-12-27 10:47 | XMS_ITS | Encounter Summary ---
Author Organization [facility] Address [address] [place] [address] [place] [address] Phone Care Team Providers Care Commissioned Defence Force Officer Name Role Phone Napoleon Michele MD Primary Care Provider [phone] Stephanie Andino DO Unavailable [phone] Shiloh Gauthier MD Primary Care Provider Salvador Jenkins MD Unavailable [phone] Malika James MD Primary Care Provider [phone] Venancio Lomeli NP Primary Care Provider [phone] Cooper Adam MD Primary Care Provide r Faye Davey CNP Unavailable Encounter Details Date Type Department Care Team (Latest Contact Info) Description 12/02/2018 Transcribe Orders [facility] 30 [place] [address] Stephanie Andino DO 30 [place] [address] [email or web address] Screening for unspecified condition (Primary Dx) Social [...] Info) Description 07/15/2024 Procedure Pass Echo Lab [address] [place] [address] 12/27/2024 2:20 PM EDT Infusion [facility] General Cancer Center at [address] [address] Marleny Cunningham, RN [address] [place] [address] 01/19/2025 11:45 AM EDT Office Visit [facility] [address] [place] [address] [place] [address], [address] [address] Rashi Garcia MD [address] [place] [address] 01/24/2025 2:20 PM EDT Infusion [facility] Center at [address] [address] 02/21/2025 1:00 PM EDT Infusion [facility] at [address] [address] 07/04/2026 1:45 PM EST Appointment Echo Lab [address] [place] [address] Julián Galvez MD [address] [place] [address] 07/18/2026 2:00 PM EDT Office Visit [facility] [address] [place] [address] 3rd [facility], [address] [address] Julián Galvez MD [address] [place] [address] [email or web address] documented as of this encounter Visit Diagnoses Diagnosis Screening for unspecified condition- Primary documented in this encounter Care Teams Commissioned Defence Force Officer Relationship Specialty Start Date End Date Napoleon Michele MD [address] [address] [email or web address] PCP - General 02/12/17 04/13/19 Shiloh Gauthier MD [address] [place] [address] PCP - General Family Medicine 04/14/19 06/20/20 Malika James MD [address] [place] [address] [email or web address] PCP - General 06/21/20 12/03/20 Venancio Lomeli NP [address] [place] [address] PCP - General Family Medicine 12/04/20 02/19/21 Cooper Adam MD [address] [place] [address] PCP - General Family Medicine 02/20/21 Stephanie Andino DO [facility] [place] [address] [email or web address] Primary Oncologist Hematology and Oncology 03/10/1704/23 Salvador Jenkins MD [address] [place] [address] [email or web address] Primary Oncologist Medical Oncology 04/24/20 Faye Davey CNP [address] [place] [address] [email or web address] Nurse Practitioner Medical Oncology 02/27/21 documented as of this encounter Additional Source Comments The information contained in this document represents components of the legal health record. It is not the complete legal health record.[facility]
--- OUTSIDE RECORDS SUMMARY | 2024-12-27 10:47 | XMS_ITS | Encounter Summary ---
Author Organization [facility] Address [address] [place] [address] [place] [address] Phone Care Team Providers Care Photonics Engineering Technician Name Role Phone Stephanie Andino DO Unavailable [phone] Shiloh Gauthier MD Primary Care Provider Salvador Jenkins MD Unavailable [phone] Malika James MD Primary Care Provider [phone] Venancio Lomeli HAND COOPER HELPER Primary Care Provider [phone] Cooper Adam MD Primary Care Provide r Faye Davey CNP Unavailable Encounter Details Date Type Department Care Team (Late st Contact Info) Description 05/23/2019 Procedure Pass [facility] Endoscopy Admitting Dept Virtual Department 30 [place] [address] Social History Tobacco Use Types Packs/Day Years [...] Description 07/15/2024 Procedure Pass Echo Lab [address] [place] [address] 12/27/2024 2:20 PM EDT Infusion [facility] at [address] [address] Marleny Cunningham, RN 30 [place] [address] 01/19/2025 11:45 AM EDT Office Visit [facility] [address] [place] [address] 3rd Floor, [address] [place] [address] Rashi Garcia MD [address] [place] [address] [email or web address] 01/24/2025 2:20 PM EDT Infusion [facility] at [address] [address] 02/21/2025 1:00 PM EDT Infusion [facility] at [address] [address] 07/04/2026 1:45 PM EST Appointment Echo Lab [address] [place] [address] Julián Galvez MD [address] [place] [address], [address] [address] 07/18/2026 2:00 PM EDT Office Visit [facility] [address] [place] [address] 3rd [facility], [address] [place] [address] Julián Galvez MD [address] [place] [address], [address] [address] documented as of this encounter Visit Diagnoses Not on filedocumented in this encounter Care Teams Photonics Engineering Technician Relationship Specialty Start Date End Date Shiloh Gauthier MD [address] [place] [address] PCP - General Family Medicine 04/14/19 06/20/20 Malika James MD 110 [facility] 212 [place] [address] [email or web address] PCP - General 06/21/20 12/03/20 Venancio Lomeli NP [address] [place] [address] PCP - General Family Medicine 12/04/20 02/19/21 Cooper Adam MD [address] [address] PCP - General Family Medicine 02/20/21 Stephanie Andino DO [email or web address] Primary Oncologist Hematology and Oncology 03/10/1704/23 Salvador Jenkins MD 30 [place] [address] Primary Oncologist Medical Oncology 04/24/20 Faye Davey CNP 30 [place] [address] Nurse Practitioner Medical Oncology 02/27/21 documented as of this encounter Additional Source Comments The information contained in this document represents components of the legal health record. It is not the complete legal health record.[facility]
--- OUTSIDE RECORDS SUMMARY | 2024-12-27 10:48 | XMS_ITS | Encounter Summary ---
Author Organization [facility] Address [address] [place] [address] [place] [address] Phone Care Team Providers Care Metal Riveter Name Role Phone Napoleon Michele MD Primary Care Provider [phone] Stephanie Andino DO Unavailable [phone] Shiloh Gauthier MD Primary Care Provider Salvador Jenkins MD Unavailable [phone] Malika James MD Primary Care Provider [phone] Venancio Lomeli NP Primary Care Provider [phone] Cooper Adam MD Primary Care Provide r Faye Davey CNP Unavailable Encounter Details Date Type Department Care Team (Latest Contact Info) Description 01/18/2018 Transcribe Orders [facility] Laboratory 30 [place] [address] Bibi Tobias NP [address] [place] [phone] [email or web address] Chronic pain syndrome (Primary Dx) Social History [...] Info) Description 07/15/2024 Procedure Pass Echo Lab [address] [address] 12/27/2024 2:20 PM EDT Infusion [facility] General Cancer Center at [address] [address] Marleny Cunningham, FLAQUITA 30 [place] [address] 01/19/2025 11:45 AM EDT Office Visit [facility] [address] [place] [address] [place] [address], [address] [address] Rashi Garcia MD [address] [place] [address] 01/24/2025 2:20 PM EDT Infusion [facility] Cancer Center at [address] [address] 02/21/2025 1:00 PM EDT Infusion [facility] Cancer Center at [address] [address] 07/04/2026 1:45 PM EST Appointment Echo Lab [address] [place] [address] Julián Galvez MD [address] [place] [address] 07/18/2026 2:00 PM EDT Office Visit [facility] [address] [place] [address] 3rd [facility], [address] [address] Julián Galvez MD [address] [place] [address] documented as of this encounter Results * (ABNORMAL) C-reactive protein, high sensitivity (01/18/2018 11:58 AM EDT) Pathologist [facility] CRP, HIGH SENSITIVITY 7.8(H) 0.0 - 5.0 mg/L [facility] Comment: Interpretation: hsCRP level (mg/L) Relative Risk <1.0 Low 1.0 - 3.0 Average >3.0 High Neonates (0-3 weeks): 0.1 - 4.1 mg/L Children (2 months - 15 years): 0.1 - 2.8 mg/L Blood 01/18/2018 11:5 8 AM EDT 01/18/2018 12:03 PM EDT us Bibi Tobias NP LAB BLOOD ORDERABLES Final Resul t Performing Organization Address [facility]/ZIP Co de Phone Number [facility] [address] [place] [address] * CCP IgG antibodies (01/18/2018 11:58 AM EDT) Pathologist [facility] CCP AB, S <15.6 <20.0 (Negative) U [facility] DPT OF LAB MED AND PAT+ Blood 01/18/2018 11:5 8 AM EDT 01/18/2018 12:03 PM EDT us Bibi Tobias NP LAB BLOOD ORDERABLES Final Resul t [facility] DPT OF LAB MED AND PAT+ [address] [place] [address] * Rheumatoid factor (01/18/2018 11:58 AM EDT) Pathologist [facility] RHEUMATOID FACTOR <10.0 0.0 - 14.0 IU/ml [facility] Blood 01/18/2018 11:5 8 AM EDT 01/18/2018 12:03 PM EDT us Bibi Tobias NP LAB BLOOD ORDERABLES Final Resul t [address] [address] * Antinuclear antibody (JESSICA) (01/18/2018 11:58 AM EDT) JESSICA SCREEN ON HEP 2 Negative Negative [facility] Blood 01/18/2018 11:5 8 AM EDT 01/18/2018 12:03 PM EDT us Bibi Tobias NP LAB BLOOD ORDERABLES Final Resul t Performing Organization Address [facility]/ZIP Co de Phone Number [address] [address] * (ABNORMAL) Comprehensive metabolic panel (01/18/2018 11:58 AM EDT) SODIUM 145 133 - 146 mmol/L [facility] POTASSIUM 4.1 3.3 - 5.1 mmol/L [facility] CHLORIDE 104 96 - 108 mmol/L [facility] CO2 24 21 - 35 mmol/L [facility] BUN 15 6 - 19 mg/dL [facility] CREATININE 0.90 0.5 - 1.5 mg/dL [facility] GLUCOSE 132(H) 70 - 99 mg/dL [facility] ALBUMIN 4.1 3.9 - 4.8 g/dL [facility] TOTAL PROTEIN 7.3 6.5 - 8.0 g/dL [facility] CALCIUM 9.6 8.4 - 10.3 mg/dL [facility] ALKALINE PHOSPHATASE 107 39 - 117 U/L [facility] TOTAL BILIRUBIN 0.3 0.0 - 1.2 mg/dL [facility] AST 11 0 - 37 U/L [facility] ALT 11 0 - 40 U/L [facility] GLOBULIN 3.2 1 - 4.8 g/dL [facility] EGFR 71 >59 mL/min/1.7 3m2 [facility] Comment:If patient is black, multiply result by 1.159. Estimated glomerular filtration rate calculated using the CKD-EPI equation. ANION GAP 21(H) 10 - 20 mmol/L [facility] Blood 01/18/2018 11:5 8 AM EDT 01/18/2018 12:03 PM EDT Bibi Tobias [facility] [address] LAB BLOOD ORDERABLES Final Resul t Performing Organization Address [facility]/ZIP Co de Phone Number [address] [address] * Sedimentation rate (ESR) (01/18/2018 11:58 AM EDT) ESR 16 0 - 30 mm/h [facility] Blood 01/18/2018 11:5 8 AM EDT 01/18/2018 12:03 PM EDT Bibi Tobias NP LAB BLOOD ORDERABLES Final Resul t Performing Organization Address [facility] de Phone Number [address] [address] * (ABNORMAL) CBC and differential (01/18/2018 11:58 AM EDT) WBC 15.77(H) 3.40 - 11.20 K/uL [facility] RBC 3.94 3.80 - 4.80 M/uL [facility] HGB 12.2 12.0 - 15.0 g/dL [facility] HCT 36.6 36.0 - 46.0 % [facility] PLT 371 130 - 400 K/uL [facility] MCV 92.9 79.0 - 98.0 fL [facility] MCH 31.0 27.0 - 34.8 pg [facility] MCHC 33.3 31.5 - 36.0 g/dL [facility] RDW 12.2 10.8 - 14.6 % [facility] MPV 10.6 9.4 - 12.4 [facility] NRBC 0.00 /100 WBCs [facility] ABSOLUTE NRBC 0.00 K/uL [facility] DIFF METHOD Auto [facility] NEUTS 76.8 45.30 - 77.70 % [facility] LYMPHS 15.2 12.30 - 39.70 % [facility] MONOS 5.4 4.10 - 12.80 % [facility] EOS 1.5 0 - 7.2 % [facility] BASOS 0.5 0 - 2.80 % [facility] Granulocytes, immature (%) 0.6 0.0 - 0.9 % [facility] ABSOLUTE NEUTS 12.12(H) 1.40 - 7.70 K/uL [facility] ABSOLUTE LYMPHS 2.40 0.60 - 3.20 K/uL [facility] ABSOLUTE MONOS 0.85(H) 0.11 - 0.59 K/uL [facility] ABSOLUTE EOS 0.23 0.01 - 0.50 K/uL [facility] ABSOLUTE BASOS 0.08 0.00 - 0.08 K/uL [facility] Granulocytes, immature 0.09(H) 0.00 - 0.05 K/uL [facility] Blood 01/18/2018 11:5 8 AM EDT 01/18/2018 12:03 PM EDT us Bibi Tobias [facility] [address] LAB BLOOD ORDERABLES Final Resul t [facility] [address] [place] [address] documented in this encounter Visit Diagnoses Diagnosis Chronic pain syndrome- Primary documented in this encounter Care Teams Metal Riveter Relationship Specialty Start Date End Date Napoleon Michele MD [address] [address] [email or web address] PCP - General 02/12/17 04/13/19 Shiloh Gauthier MD [address] [place] [address] PCP - General Family Medicine 04/14/19 06/20/20 Malika James MD 110 [facility] 212 [place] [address] [email or web address] PCP - General 06/21/20 12/03/20 Venancio Lomeli NP [address] [place] [address] PCP - General Family Medicine 12/04/20 02/19/21 [facility] [address] [address] PCP - General Family Medicine 02/20/21 Stephanie Andino DO [address] [place] [address] [email or web address] Primary Oncologist Hematology and Oncology 03/10/1704/23 Salvador Jenkins MD [address] [place] [address] Primary Oncologist Medical Oncology 04/24/20 Faye Davey CNP [address] [place] [address] Nurse Practitioner Medical Oncology 02/27/21 documented as of this encounter Additional Source Comments The information contained in this document represents components of the legal health record. It is not the complete legal health record.[facility]
--- OUTSIDE RECORDS SUMMARY | 2024-12-27 10:48 | XMS_ITS | Encounter Summary ---
Author Organization [facility] Address [address] [place] [address] Phone Care Team Providers Care Director Loan Name Role Phone Salvador Jenkins MD Unavailable [phone] Cooper Adam MD Primary Care Provide r Faye Davey SIDING APPLICATOR Unavailable Encounter Details Date Type Department Care Team (Late st Contact Info) Description 10/08/2021 Procedure Pass Echo Lab [place] [place] [address] Social History Tobacco Use Types Packs/Day Years [...] Info) Description 07/15/2024 Procedure Pass Echo Lab [address] [place] [address] 12/27/2024 2:20 PM EDT Infusion [facility] at [place] [address] [place] [address] Marleny Cunningham, RN [address] [place] [address] 01/19/2025 11:45 AM EDT Office Visit [facility] [address] [place] [address], [address] [address] Rashi Garcia MD [address] [place] [address] 01/24/2025 2:20 PM EDT Infusion [facility] at [address] [address] 02/21/2025 1:00 PM EDT Infusion [facility] at [address] [address] 07/04/2026 1:45 PM EST Appointment Echo Lab [address] [address] Julián Galvez MD [address] [place] [address] 07/18/2026 2:00 PM EDT Office Visit [facility] [address] [place] [address], [address] [address] Julián Galvez MD [address] [place] [address] documented as of this encounter Visit Diagnoses Not on filedocumented in this encounter Care Teams Director Loan Relationship Specialty Start Date End Date Cooper Adam MD [address] [address] PCP - General Family Medicine 02/20/21 Salvador Jenkins MD [address] [place] [address] [email or web address] Primary Oncologist Medical Oncology 04/24/20 Faye Davey CNP [address] [place], [place] [address] [email or web address] Nurse Practitioner Medical Oncology 02/27/21 documented as of this encounter Additional Source Comments The information contained in this document represents components of the legal health record. It is not the complete legal health record.[facility]
--- OUTSIDE RECORDS SUMMARY | 2024-12-27 10:48 | XMS_ITS | Encounter Summary ---
Author Organization [facility] Address [address] [place] [address] [place] [address] Phone Care Team Providers Care Research Worker Encyclopedia Name Role Phone Napoleon Michele MD Primary Care Provider [phone] Stephanie Andino DO Unavailable [phone] Shiloh Gauthier MD Primary Care Provider Salvador Jenkins MD Unavailable [phone] Malika James MD Primary Care Provider [phone] Venancio Lomeli NP Primary Care Provider [phone] Cooper Adam MD Primary Care Provide r Faye Davey CNP Unavailable Encounter Details Date Type Department Care Team (Latest Contact Info) Description 12/30/2017 Transcribe Orders [facility] 30 [place] [address] Stephanie Andino DO 30 [place] [address] [email or web address] Screening for condition (Primary Dx) Social History [...] Description 07/15/2024 Procedure Pass Echo Lab [address] [place] [address] 12/27/2024 2:20 PM EDT Infusion [facility] at [address] [address] Marleny Cunningham, FLAQUITA [address] [place] [address] 01/19/2025 11:45 AM EDT Office Visit [facility] [address] [place] [address] [place] [address], [address] [address] Rashi Garcia MD [address] [place] [address] 01/24/2025 2:20 PM EDT Infusion [facility] at [address] [address] 02/21/2025 1:00 PM EDT Infusion [facility] at [address] [address] 07/04/2026 1:45 PM EST Appointment Echo Lab [address] [place] [address] Julián Galvez MD [address] [place] [address] 07/18/2026 2:00 PM EDT Office Visit [facility] [address] [place] [address] 3rd Research [facility], [address] [address] Julián Galvez MD [address] [place] [address] [email or web address] documented as of this encounter Results * Chemistry Hold (12/30/2017 1:39 PM EDT) Blood 12/30/2017 1:39 PM EDT 12/30/2017 1:54 PM EDT Stephanie Andino DO LAB BLOOD ORDERABLES Final Result Performing Organization Address City/State/[place] Co de Phone Number [email or web address] documented in this encounter Visit Diagnoses Diagnosis Screening for condition- Primary Screening for unspecified condition documented in this encounter Care Teams Research Worker Encyclopedia Relationship Specialty Start Date End Date Napoleon Michele MD [address] [address] [email or web address] PCP - General 02/12/17 04/13/19 Shiloh Gauthier MD [address] [place] [address] PCP - General Family Medicine 04/14/19 06/20/20 Malika James MD [address] [address] [email or web address] PCP - General 06/21/20 12/03/20 Venancio Lomeli NP [address] [place] [address] PCP - General Family Medicine 12/04/20 02/19/21 [facility] [address] [address] PCP - General Family Medicine 02/20/21 Stephanie Andino DO [address] [address] [email or web address] Primary Oncologist Hematology and Oncology 03/10/1704/23 Salvador Jenkins MD [address] [place] [address] Primary Oncologist Medical Oncology 04/24/20 Faye Davey CNP [address] [place] [address] [email or web address] Nurse Practitioner Medical Oncology 02/27/21 documented as of this encounter Additional Source Comments The information contained in this document represents components of the legal health record. It is not the complete legal health record.[facility]
--- OUTSIDE RECORDS SUMMARY | 2024-12-27 10:48 | XMS_ITS | Encounter Summary ---
Author Organization [facility] Address [address] [facility] [address] [place] [address] Phone Care Team Providers Care Corking Machine Operator Name Role Phone Napoleon Michele MD Primary Care Provider [phone] Stephanie Andino DO Unavailable [phone] Shiloh Gauthier MD Primary Care Provider Salvador Jenkins MD Unavailable [phone] Malika James MD Primary Care Provider [phone] Venancio Lomeli NP Primary Care Provider [phone] Cooper Adam MD Primary Care Provide r Faye Davey CNP Unavailable Reason for Referral * MRI/CAT Scan - Closed Specialty Diagnoses / Procedures Referred By Contac t Referred To Contact Radiology Diagnoses Lumbar radiculopathy Procedures MRI Lumbar Spine Bibi Tobias NP Phone: tel: fax: mailto:[email or web address] Referral ID Status Reason Start Date Expiration Date Visits Re quested Visits Authorized [id number] Closed 01/21/2018 01/21/2019 1 1 Encounter Details Date Type Department Care Team (Latest Contact Info) Description 01/21/2018 Ancillary Orders [facility] Department [address] [place] [address] Bibi Tobias NP [address] [place] [address] [email or web address] Lumbar radiculopathy Social History Tobacco Use Types [...] Description 07/15/2024 Procedure Pass Echo Lab [address] [place] [address] 12/27/2024 2:20 PM EDT Infusion [facility] at [address] [address] Marleny Cunningham, RN [address] [place] [address] 01/19/2025 11:45 AM EDT [facility] [address] [place] [address] 3rd Floor, [address] [place] [address] Rashi Garcia MD [address] [place] [address], [address] [address] 01/24/2025 2:20 PM EDT Infusion [facility] at [address] [address] 02/21/2025 1:00 PM EDT Infusion [facility] at [address] [address] 07/04/2026 1:45 PM EST Appointment Echo Lab [address] [place] [address] Julián Galvez MD [address] [facility], [address] [place] [address] [email or web address] 07/18/2026 2:00 PM EDT Office Visit [facility] [address] [facility] 3rd Floor, [address] [place] [address] Julián Galvez MD [address] [facility], [address] [place] [address] [email or web address] documented as of this encounter Results * MRI LUMBAR SPINE (NEURO) WITHOUT CONTRAST (03/10/2018 12:51 PM EST) Anatomical Region Laterality Modality L-spine Magnetic Resonan ce 03/10/2018 12:4 5 PM EST Impressions 03/10/2018 1:47 PM EST Small L5-S1 disc protrusion without significant regional mass effect. No other source of pain. No evidence of an infectious process regionally. POS - [id number] Edited by: Pati Bai on 03/10/2018 1:22 [...] soft tissue findings of concern in the [id number]. Conus is at the L1-2 level. Procedure Note Yoan Aleman MD - 03/10/2018 HISTORY: Thoracolumbar and lumbar pain. Elevated white count andC-reactive protein. COMPARISON: No prior lumbar imaging. TECHNIQUE: Exam performed on a 1.5 Igna high-field MRI scanner. SagittalT1, T2 and STIR, [...] other soft tissue findings ofconcern in the ckxpb-hx-zgyh. Conus is at the L1-2 level. IMPRESSION: Small L5-S1 disc protrusion without significant regional mass effect. Noother source of pain. No evidence of an infectious process regionally. POS - [id number] Edited by: Pati Bai on 03/10/2018 1:22 PM Bibi Tobias COMMERCIAL LENDING RELATIONSHIP MANAGER IM MR XSPECIALTY Final Result documented in this encounter Visit Diagnoses Diagnosis Lumbar radiculopathy Thoracic or lumbosacral neuritis or radiculitis, unspecified Lumbar radiculopathy Thoracic or lumbosacral neuritis or radiculitis, unspecified documented in this encounter Care Teams Corking Machine Operator Relationship Specialty Start Date End Date Napoleon Michele MD [address] [address] [email or web address] PCP - General 02/12/17 04/13/19 Shiloh Gauthier MD [address] [place] [address] PCP - General Family Medicine 04/14/19 06/20/20 Malika James MD [address] [facility] [address] [place] [address] [email or web address] PCP - General 06/21/20 12/03/20 Venancio Lomeli NP [address] [place] [address] PCP - General Family Medicine 12/04/20 02/19/21 Cooper Adam MD [address] [address] PCP - General Family Medicine 02/20/21 Stephanie Andino DO [address] [address] [email or web address] Primary Oncologist Hematology and Oncology 03/10/1704/23 Salvador Jenkins MD 30 [place] [address] Primary Oncologist Medical Oncology 04/24/20 Faye Davey CNP 30 [place] [address] Nurse Practitioner Medical Oncology 02/27/21 documented as of this encounter Additional Source Comments The information contained in this document represents components of the legal health record. It is not the complete legal health record.[facility]
--- OUTSIDE RECORDS SUMMARY | 2024-12-27 10:48 | XMS_ITS | Clinical Summary ---
Author Organization [facility] Address [address] [facility] [address] [place] [address] Phone Care Team Providers Care Cotton Baler Name Role Phone Salvador Jenkins MD Unavailable [phone] Cooper Adam MD Primary Care Provide r Faye Davey DESIGN PROJECT MANAGER Unavailable Allergies Active Allergy Reactions Criticality Noted [...] Team Description 11/29/2024 3:20 PM EDT Infusion [facility] at [address] [address] Salvador Jenkins MD Hickson, Lauren, RN Pernicious anemia (Primary Dx); Vitamin B12 deficiency 11/29/2024 2:40 PM EDT Office Visit [facility] at [address] [address] Salvador Jenkins MD Other elevated white blood cell (WBC) count (Primary Dx); Pernicious anemia; Vitamin B12 deficiency 11/29/2024 1:37 PM EDT - 11/29/2024 11:59 PM EDT Hospital Encounter [facility] [address] [place] [address] Salvador Jenkins MD Discharge Disposition: Home or Self Care 11/22/2024 Orders Only [facility] at [address] [address] Katharine Tristan CMA Vitamin B12 deficiency (Primary Dx) 11/02/2024 2:00 PM EDT Infusion [facility] at [address] [address] Salvador Jenkins MD Flynn, Margaret Broad, FLAQUITA Pernicious anemia (Primary Dx); Vitamin B12 deficiency 11/02/2024 Orders Only [facility] at [address] [address] Fernanda Peralta FNP 11/01/2024 Telephone [facility] Oncology - Virtual Department [address] [place] [address] Marleny Cunningham, FLAQUITA Appointment (Pt no show, needs new appt ) 11/01/2024 Telephone [facility] Oncology - Virtual Department [address] [place] [address] Marleny Cunningham, FLAQUITA 09/29/2024 1:20 PM EDT Infusion [facility] at [address] [address] Salvador Jenkins MD Pernicious anemia (Primary Dx); Vitamin B12 deficiency 09/27/2024 Telephone [facility] [place] at [address] [address] Salvador Jenkins MD Reschedule from Last 3 Months Immunizations Immunization Administration Dates Next Due COVID-19 (Pre-02/16) Pfizer Vaccine, mRNA, PF 03/14/2021,08/26/2020,08/05/2020 [id number] FORMULATION 03/19/2009 INFLUENZA, SPLIT VIRUS, TRIVALENT PF [...] Info) Description 07/15/2024 Procedure Pass Echo Lab [place] [address] [place] [address] 12/27/2024 2:20 PM EDT Infusion [facility] at [facility] 30 [place] [address] Marleny Cunningham, RN 30 [place] [address] 01/19/2025 11:45 AM EDT Office Visit [facility] [address] 3rd Floor, [address] [place] [address] Rashi Garcia MD [address] [place] [address], [address] [place] [address] 01/24/2025 2:20 PM EDT Infusion [facility] at [address] [address] 02/21/2025 1:00 PM EDT Infusion [facility] at [address] [address] 07/04/2026 1:45 PM EST Appointment Echo Lab [address] [place] [address] Julián Galvez MD [address] [place] [address], [address] [address] 07/18/2026 2:00 PM EDT Office Visit [facility] [address] [place] [address] 3rd Floor, [address] [place] [address] Julián Galvez MD [address] [place] [address], [address] [address] [email or web address] Health Maintenance Due Date Last Done Comments [...] EDT) SODIUM 139 133 - 146 mmol/L [facility] POTASSIUM 3.3 3.3 - 5.1 mmol/L [facility] CHLORIDE 101 96 - 108 mmol/L [facility] CO2 25 21 - 35 mmol/L [facility] BUN 16 6 - 19 mg/dL [facility] CREATININE 1.00 0.5 - 1.5 mg/dL [facility] GLUCOSE 110(H) 70 - 99 mg/dL [facility] ALBUMIN 4.4 3.9 - 4.8 g/dL [facility] TOTAL PROTEIN 7.5 6.5 - 8.0 g/dL [facility] CALCIUM 9.4 8.4 - 10.3 mg/dL [facility] ALKALINE PHOSPHATASE 94 39 - 117 U/L [facility] TOTAL BILIRUBIN 0.6 0.0 - 1.2 mg/dL [facility] AST 18 0 - 37 U/L [facility] ALT 19 0 - 40 U/L [facility] GLOBULIN 3.1 1 - 4.8 g/dL [facility] EGFR 63 >59 mL/min/1.7 3m2 [facility] Comment:Estimated glomerular filtration rate calculated using the CKD-EPI refit equation. ANION GAP 16 10 - 20 mmol/L [facility] Blood 11/29/2024 1:37 PM EDT 11/29/2024 1:44 PM EDT us Salvador Jenkins MD LAB BLOOD ORDERABLES Final Res ult [facility] [address] [place] [address] * (ABNORMAL) CBC and differential (11/29/2024 1:37 PM EDT) WBC 11.95(H) 4.00 - 11.00 K/uL [facility] RBC 4.07 4.00 - 5.20 M/uL [facility] HGB 13.1 12.0 - 16.0 g/dL [facility] HCT 38.2 36.0 - 46.0 % [facility] PLT 278 150 - 450 K/uL [facility] MCV 93.9 80.0 - 100.0 fL [facility] MCH 32.2(H) 27.0 - 31.0 pg [facility] MCHC 34.3 32.0 - 36.0 g/dL [facility] RDW 12.0 11.5 - 14.5 % [facility] MPV 10.5 8.4 - 12.0 fL [facility] NRBC 0.00 0.00 /100 WBCs [facility] ABSOLUTE NRBC 0.00 0.00 K/uL [facility] DIFF METHOD Auto [facility] NEUTS 64.6 48.0 - 76.0 % [facility] LYMPHS 27.7 18.0 - 41.0 % [facility] MONOS 5.4 4.0 - 11.0 % [facility] EOS 1.5 0.0 - 5.0 % [facility] BASOS 0.5 0.0 - 1.5 % [facility] Granulocytes, immature (%) 0.3 0.0 - 0.9 % [facility] ABSOLUTE NEUTS 7.72(H) 1.92 - 7.60 K/uL [facility] ABSOLUTE LYMPHS 3.31 0.72 - 4.10 K/uL [facility] ABSOLUTE MONOS 0.64 0.16 - 1.10 K/uL [facility] ABSOLUTE EOS 0.18 0.00 - 0.50 K/uL [facility] ABSOLUTE BASOS 0.06 0.00 - 0.15 K/uL [facility] Granulocytes, immature 0.04 0.00 - 0.09 K/uL [facility] Blood 11/29/2024 1:37 PM EDT 11/29/2024 1:44 PM EDT us Salvador Jenkins MD LAB BLOOD ORDERABLES Final Res ult [facility] [address] [place] [address] * (ABNORMAL) Ferritin (11/29/2024 1:37 PM EDT) FERRITIN 154(H) 13 - 150 ug/L [facility] Blood 11/29/2024 1:37 PM EDT 11/29/2024 1:44 PM EDT us Salvador Jenkins MD LAB BLOOD ORDERABLES Final Res ult Performing Organization Address City/[facility]/ZIP Co de Phone Number [address] [address] * Vitamin B12 (11/29/2024 1:37 PM EDT) VITAMIN B12 1,000 232 - 1,245 pg/mL [facility] Blood 11/29/2024 1:37 PM EDT 11/29/2024 1:44 PM EDT us Salvador Jenkins MD LAB BLOOD ORDERABLES Final Res ult Performing Organization Address [facility] Co de Phone Number [address] [address] * (ABNORMAL) Glucose (04/16/2018 9:58 AM EST) GLUCOSE 135(H) 70 - 99 mg/dL [facility] Blood 04/16/2018 9:58 AM EST 04/16/2018 10:00 AM EST us Sarthak Armstrong MD LAB BLOOD ORDERABLES Final R esult Performing Organization Address [facility] Co de Phone Number [address] [address] from Last 3 Months or Most Recently Relevant to Health Maintenance Insurance [facility]IC[facility] PART A & [facility] PART A & B Member Subscriber Plan / Payer (Ef fective 2013-Present) Name:Pati Rawls Member ID:[id number] Relation to Subscriber:Self Name:Pati Rawls Subscriber ID:[id number] Payer ID:[id number] Group ID:Not on file Type:Medicare Address: [facility] [employer] [facility] [address] [place] [phone] [place] B Member Subscriber Plan / Payer ( fective 2013-Present) Name:Pati Rawls Member ID:[id number] Relation to Subscriber:Self Name:Pati Rawls Subscriber ID:[id number] Payer ID:[id number] Group ID:Not on file Type:Medicare Address: [facility] [employer] [facility] [address] [place] [phone] [place] PART A & B [place] [facility] & B [place] PART [place] & B Member Subscriber Plan / Payer (Ef fective 2013-Present) Name:Curly Pati Member ID:[id number] Relation to Subscriber:Self Name:Pati Rawls Subscriber ID:[id number] Payer ID:[id number] Group ID:Not on file Type:Medicare Address: [facility] [employer] [facility] [address] [place] [phone] [facility] Care Teams Cotton Baler Relationship Specialty Start Date End Date [facility] [address] [address] PCP - General Family Medicine 02/20/21 Salvador Jenkins MD 30 [place] [address] Primary Oncologist Medical Oncology 04/24/20 Faye Davey CNP 30 [place] [address] Nurse Practitioner Medical Oncology 02/27/21 Additional Source Comments The information contained in this document represents components of the legal health record. It is not the complete legal health record.[facility]
[2024-12-27] MEDS: metroNIDAZOLE/NS 500 MG/100 ML PIGGYBACK 100 MG IV (11:03)
[2024-12-27] MEDS: iohexoL 350 MG/ML 100 ML INFUS..BTL IV (11:35)
[2024-12-27 12:33] VITALS: BP 116/77; PULSE 108; RESP 18; TEMP 37.2; O2SAT 93
[2024-12-27 15:11] VITALS: BP 137/89; PULSE 118; RESP 18; TEMP 37.4; O2SAT 97
== END 2024-12-27 15:12 | disposition home or self-care (01) ==
PROVIDERS: Physician Assistant; Emergency Provider Emergency Medicine; PCP Family Medicine
DX: K52.9 Noninfective gastroenteritis and colitis, unspecified (principal); R10.9 Unspecified abdominal pain; R11.0 Nausea; E13.9 Other specified diabetes mellitus without complications; I10 Essential (primary) hypertension; R10.32 Left lower quadrant pain; Z79.899 Other long term (current) drug therapy
CPT/HCPCS: 36415; 74177; 80048; 80053; 81001; 82248; 83605; 83690; 83735; 85025; 87040; 96361; 96365; 96375; 96376; 99284; 99285; J0696; J1171; J1836; J2405; Q9967

== ENCOUNTER → 2024-12-27 09:55 | Outpatient (BNV) | payer MEDICARE, MEDICAID, SELFPAY | PROVIDERS: Emergency Provider Emergency Medicine; PCP Family Medicine; Visit Provider Radiology Diagnostic Radiology | DX: K52.9 Noninfective gastroenteritis and colitis, unspecified (principal) | CPT/HCPCS: 74177 ==

== ENCOUNTER → 2025-01-23 09:12 | Outpatient (AMB) | payer MEDICARE, MEDICAID, SELFPAY ==
--- NOTE | 2025-01-23 09:15 | MHC.OFFVIS ---
Intake Visit Reasons: 6 month f/u Intake Note: States that she was seen in the ED due to her colitis - notes in the chart! Allergies acetaminophen (From Tylenol) Allergy (Severe, Verified 01/23/25 09:16) Gastrointestinal Upset esomeprazole (Nexium) Allergy (Severe, Verified 01/23/25 09:16) rash famotidine (From PEPCID) Allergy (Severe, Verified 01/23/25 09:16) Gastrointestinal Upset, rash gabapentin (GABAPENTIN) Allergy (Severe, Verified 01/23/25 09:16) ABD PAIN lansoprazole (Prevacid) Allergy (Severe, Verified 01/23/25 09:16) Gastrointestinal Upset, rash Penicillins (PENICILLINS) Allergy (Severe, Verified 01/23/25 09:16) RASH, stomach pains tramadol Allergy (Severe, Verified 01/23/25 09:16) Gastrointestinal Upset, hives morphine Adverse Reaction (Severe, Verified 01/23/25 09:16) migraine headache adhesive tape Adverse Reaction (Intermediate, Verified 01/23/25 09:16) Redness of Skin HPI HPI 6 month f/u: Details: 64 year old female with PMH of DM, HtN, asthma, hx of LAR with ileostomy and reversal who I am calling for f/u after I initially saw her as an inpatient for RLQ pain. RECAP: She had RLQ sharp, burning pain for 2 weeks prior to admission. She felt this pain was similar to her prior episodes of diverticulitis, at least 6 since her LAR surgery 2010. It was severe and worse with movement. she has persistent nausea for months and was waiting for an EGD at [facility], Last colonoscopy 3 yrs ago at [facility], results not known. She had CT scan 11/07/20 with sigmoid diverticulitis and several internal hernias, incl ventral and umbilical areas. Repeat CT 11/18/20--- no areas of stranding seen but large ventral hernia noted, lots of stool content in bowel I did an EGD/colonoscopy with gastritis, noted, surgical changes to colon, diverticulosis, lots of looping of colon ba swallow 12/06/2020--normal, no hiatal hernia, no GOO\ she has seen Dr Rabago and discussed hernia repair I did us due to crampy RUQ pains, CBD was nml, fatty liver noted --LFt nml She has coltiis on 12/27/ on CT, and given ABX, and sent homw INTERIM: she is feeling better denies any abdominal pain but having a lot of reflux since completed ABX she had diarrhea with ABX but this has improved no blood in stool appetite is fair insurance only covering carafate tabs--cutting them into smaller pieces EXAM: GENERAL: The patient is well developed and nontoxic. A/P: 1/ Colitis, still has sx and reflux, last colo 4 yrs ago-worsening reflux as well, maybe related to flagyl PLAN: 1/ rept colo and EGD< can cancel if sx improve in the interim, cont with PPI for the moment PFSH Medical History Seasonal allergies Use of cane as ambulatory aid CTS (carpal tunnel syndrome) Abdominal hernia Morbid obesity due to excess calories Incisional hernia UTI (urinary tract infection) Chronic back pain Diverticulitis Diverticulitis History of diverticulitis SIRS (systemic inflammatory response syndrome) Abdominal pain Asthma Depression Migraines Diabetes 1.5, managed as type 2 HTN (hypertension) Surgical History Hx of hernia repair Hx of surgical procedure (~08/25/23) Hx of hand surgery Hx of colonoscopy History of esophagogastroduodenoscopy (EGD) History of partial colectomy History of hysterectomy History of cholecystectomy Family History Father Cancer Social History Household Members: Significant Other Housing: Apartment Are you a primary career services officer to a significant other at home: No Do you presently have visiting nurse or other home services: No Alcohol intake: never Comment: Pt. sleeping Patient Tobacco Use Status: Never used Tobacco e-Cigarette/Vaping Use: Never Used Second Hand Smoke Exposure: Yes Advance Directives Date on File: 10/02/20 service: No Current occupational status: disabled Telehealth Telehealth Telehealth Platform: [facility] Location of provider rendering services: practice address Location of patient: address on file Patient Identification confirmed using: Name, : Yes Telehealth method: video Patient verbally consented to treatment: Yes Patient verbally consented to billing insurance company: Yes Patient informed of any privacy concerns related to visit: Yes Minutes spent on Phone/Video with Pt.: 11 Assessment & Plan Assessment & Plan (1) Acute colitis: Code(s): K52.9 - Noninfective gastroenteritis and colitis, unspecified Category: Medical Plan: as above Coding Level of Care Code Tele Est Pt Level 3 (39742) Diagnoses Acute colitis K52.9
--- OUTSIDE RECORDS SUMMARY | 2025-01-23 09:51 | XMS_ITS | Encounter Summary ---
Author Organization [facility] Address [address] [place] [address] [place] [address] Phone Care Team Providers Care Open Die Inspector Name Role Phone Napoleon Michele MD Primary Care Provider Stephanie Andino DO Unavailable [phone] Shiloh Gauthier MD Primary Care Provider Salvador Jenkins MD Unavailable [phone] Malika James MD Primary Care Provider [phone] Venancio Lomeli NP Primary Care Provider [phone] Cooper Adam MD Primary Care Provide r Faye Davey CNP Unavailable Encounter Details Date Type Department Care Team (Late st Contact Info) Description 11/01/2018 Procedure Pass [facility] Endoscopy Admitting Dept Virtual Department 30 [place], [place] [id number] Social History Tobacco Use Types Packs/Day Years [...] Info) Description 07/15/2024 Procedure Pass Echo Lab [address] [place] [address] 01/24/2025 2:20 PM EDT Infusion [facility] at [address] [address] 02/21/2025 1:00 PM EDT Infusion [facility] at [address] [address] 07/04/2026 1:45 PM EST Appointment Echo Lab [address] [place] [address] Julián Galvez MD [address] [place] [address], [address] [address] [email or web address] 07/18/2026 2:00 PM EDT Office Visit [facility] [address] [place] [address] 3rd Floor, [address] [address] Julián Galvez MD [address] [place] [address], [address] [address] [email or web address] documented as of this encounter Visit Diagnoses Not on filedocumented in this encounter Care Teams Open Die Inspector Relationship Specialty Start Date End Date Napoleon Michele MD [address] [address] [email or web address] PCP - General 02/12/17 04/13/19 Shiloh Gauthier MD [address] [place] [address] PCP - General Family Medicine 04/14/19 06/20/20 Malika James MD [address] [address] [email or web address] PCP - General 06/21/20 12/03/20 Venancio Lomeli NP [address] [place] [address] PCP - General Family Medicine 12/04/20 02/19/21 [facility] [address] [address] PCP - General Family Medicine 02/20/21 Stephanie Andino DO [address] [address] [email or web address] Primary Oncologist Hematology and Oncology 03/10/1704/23 Salvador Jenkins MD [address] [place] [address] Primary Oncologist Medical Oncology 04/24/20 Faye Davey CNP [address] [place] [address] Nurse Practitioner Medical Oncology 02/27/21 documented as of this encounter Additional Source Comments The information contained in this document represents components of the legal health record. It is not the complete legal health record.[facility]
--- OUTSIDE RECORDS SUMMARY | 2025-01-23 09:51 | XMS_ITS | Encounter Summary ---
Author Organization [facility] Address [address] [place] [address] [place] [address] Phone Care Team Providers Care Shell Sieve Operator Name Role Phone Napoleon Michele MD Primary Care Provider [phone] Stephanie Andino DO Unavailable [phone] Shiloh Gauthier MD Primary Care Provider Salvador Jenkins MD Unavailable [phone] Malika James MD Primary Care Provider [phone] Venancio Lomeli NP Primary Care Provider [phone] Cooper Adam MD Primary Care Provide r Faye Davey CNP Unavailable Encounter Details Date Type Department Care Team (Late st Contact Info) Description 09/13/2018 Ancillary Orders Virtual Department 30 [place] [address] Bibi Tobias NP [address] [place] [phone] [email or web address] Bilateral lower extremity pain; Tenderness in limb [...] Info) Description 07/15/2024 Procedure Pass Echo Lab [address] [place] [address] 01/24/2025 2:20 PM EDT Infusion [facility] at [address] [address] 02/21/2025 1:00 PM EDT Infusion [facility] at [address] [address] 07/04/2026 1:45 PM EST Appointment Echo Lab [address] [place] [address] Julián Galvez MD [address] [place] [address], [address] [place] [address] [email or web address] 07/18/2026 2:00 PM EDT Office Visit [facility] [address] [place] [address] 3rd Floor, [address] [place] [address] Julián Galvez MD [address] [place] [address], [address] [place] [address] [email or web address] documented as of this encounter Results * [...] limb documented in this encounter Care Teams Shell Sieve Operator Relationship Specialty Start Date End Date Napoleon Michele MD [address] [address] [email or web address] PCP - General 02/12/17 04/13/19 Shiloh Gauthier MD [address] [place] [address] PCP - General Family Medicine 04/14/19 06/20/20 Malika James MD [address] [place] [address] [email or web address] PCP - General 06/21/20 12/03/20 Venancio Lomeli NP [address] [place] [address] PCP - General Family Medicine 12/04/20 02/19/21 [facility] [address] [address] PCP - General Family Medicine 02/20/21 Stephanie Andino DO [address] [address] [email or web address] Primary Oncologist Hematology and Oncology 03/10/1704/23 Salvador Jenkins MD 30 [place] [address] [email or web address] Primary Oncologist Medical Oncology 04/24/20 Faye Davey CNP 30 [place] [address] [email or web address] Nurse Practitioner Medical Oncology 02/27/21 documented as of this encounter Additional Source Comments The information contained in this document represents components of the legal health record. It is not the complete legal health record.[facility]
--- OUTSIDE RECORDS SUMMARY | 2025-01-23 09:51 | XMS_ITS | Encounter Summary ---
Author Organization [facility] Address [address] [place] [address] [place] [address] Phone Care Team Providers Care Wall Crane Operator Name Role Phone Napoleon Michele MD Primary Care Provider [phone] Stephanie Andino DO Unavailable [phone] Shiloh Gauthier MD Primary Care Provider Salvador Jenkins MD Unavailable [phone] Malika James MD Primary Care Provider [phone] Venancio Lomeli NP Primary Care Provider [phone] Cooper Adam MD Primary Care Provide r [...] Expiration Date Visits Re quested Visits Authorized [id number] Closed 04/07/2019 04/06/2020 1 1 Encounter Details Date Type Department Care Team (Latest Contact Info) Description 04/07/2019 Transcribe Orders [facility] Department [address] [place] [address] Vicki Tuttle PA 10 [place] [address] Diverticulitis large intestine w/o perforation or abscess [...] Info) Description 07/15/2024 Procedure Pass Echo Lab [address] [place] [address] 01/24/2025 2:20 PM EDT Infusion [facility] at [address] [address] 02/21/2025 1:00 PM EDT Infusion [facility] at [address] [address] 07/04/2026 1:45 PM EST Appointment Echo Lab [address] [place] [address] Julián Galvez MD [address] [place] [address], [address] [address] 07/18/2026 2:00 PM EDT Office Visit [facility] [address] [place] [address] 3rd Floor, [address] [address] Julián Galvez MD [address] [place] [address], [address] [address] documented as of this encounter Results * [...] alone documented in this encounter Care Teams Wall Crane Operator Relationship Specialty Start Date End Date Napoleon Michele MD [address] [address] [email or web address] PCP - General 02/12/17 04/13/19 Shiloh Gauthier MD [address] [place] [address] PCP - General Family Medicine 04/14/19 06/20/20 Malika James MD 110 [facility] [address] [place] [address] [email or web address] PCP - General 06/21/20 12/03/20 Venancio Lomeli NP [address] [place] [address] PCP - General Family Medicine 12/04/20 02/19/21 Cooper Adam MD [address] [address] PCP - General Family Medicine 02/20/21 Stephanie Andino DO [address] [address] [email or web address] Primary Oncologist Hematology and Oncology 03/10/1704/23 Salvador Jenkins MD 30 [place] [address] Primary Oncologist Medical Oncology 04/24/20 Faye Davey CNP 30 [place] [address] Nurse Practitioner Medical Oncology 02/27/21 documented as of this encounter Additional Source Comments The information contained in this document represents components of the legal health record. It is not the complete legal health record.[facility]
--- OUTSIDE RECORDS SUMMARY | 2025-01-23 09:51 | XMS_ITS | Encounter Summary ---
Author Organization [facility] Address [address] [place] [address] [place] [address] Phone Care Team Providers Care Baggage Clerk Name Role Phone Stephanei Andino DO Unavailable Shiloh Gauthier MD Primary Care Provider Salvador Jenkins MD Unavailable [phone] Malika James MD Primary Care Provider [phone] Venancio Lomeli TRAFFIC ENGINEERING TECHNICIAN Primary Care Provider [phone] Cooper Adam MD Primary Care Provide r Faye Davey CNP Unavailable Encounter Details Date Type Department Care Team (Late st Contact Info) Description 05/23/2019 Procedure Pass [facility] Endoscopy Admitting Dept Virtual Department 30 [place] [address] Social History Tobacco Use Types Packs/Day Years [...] Info) Description 07/15/2024 Procedure Pass Echo Lab [address] [place] [address] 01/24/2025 2:20 PM EDT Infusion [facility] at [address] [address] 02/21/2025 1:00 PM EDT Infusion [facility] at [address] [address] 07/04/2026 1:45 PM EST Appointment Echo Lab [address] [place] [address] Julián Galvez MD [address] [place] [address], [address] [address] [email or web address] 07/18/2026 2:00 PM EDT Office Visit [facility] [address] [place] [address] Dr 3rd Floor, [address] [address] Julián Galvez MD [address] [place] [address], [address] [address] [email or web address] documented as of this encounter Visit Diagnoses Not on filedocumented in this encounter Care Teams Baggage Clerk Relationship Specialty Start Date End Date Shiloh Gauthier MD [address] [place] [address] PCP - General Family Medicine 04/14/19 06/20/20 Malika James MD [address] [address] [email or web address] PCP - General 06/21/20 12/03/20 Venancio Lomeli NP [address] [place] [address] PCP - General Family Medicine 12/04/20 02/19/21 Cooper Adam MD [address] [address] PCP - General Family Medicine 02/20/21 Stephanie Andino DO [email or web address] Primary Oncologist Hematology and Oncology 03/10/1704/23 Salvador Jenkins MD 30 [place] [address] Primary Oncologist Medical Oncology 04/24/20 Faye Davey CNP 30 [place] [address] Nurse Practitioner Medical Oncology 02/27/21 documented as of this encounter Additional Source Comments The information contained in this document represents components of the legal health record. It is not the complete legal health record.[facility]
--- OUTSIDE RECORDS SUMMARY | 2025-01-23 09:51 | XMS_ITS | Encounter Summary ---
Author Organization [facility] Address [address] [facility] [address] [place] [address] Phone Care Team Providers Care Housesmith Name Role Phone Napoleon Michele MD Primary Care Provider [phone] Stephanie Andino DO Unavailable [phone] Shiloh Gauthier MD Primary Care Provider Salvador Jenkins MD Unavailable [phone] Malika James MD Primary Care Provider [phone] Venancio Lomeli NP Primary Care Provider [phone] Cooper Adam MD Primary Care Provide r Faye Davey CNP Unavailable Reason for Referral * MRI/CAT Scan - Closed Specialty Diagnoses / Procedures Referred By Contceline t Referred To Contact Radiology Diagnoses Weakness Procedures MRI Brain Bibi Tobias NP Phone: tel: fax: [email or web address] Referral ID Status Reason Start Date Expiration Date Visits Re quested Visits Authorized [id number] Closed 12/14/2018 12/14/2019 1 1 Encounter Details Date Type Department Care Team ([facility] Contact Info) Description 12/14/2018 Ancillary Orders [facility] Department [address] [place] [address] Bibi Tobias NP [address] [place] [phone] Weakness Social History Tobacco Use Types Packs/Day [...] Info) Description 07/15/2024 Procedure Pass Echo Lab [address] [place] [address] 01/24/2025 2:20 PM EDT Infusion [facility] at [address] [address] 02/21/2025 1:00 PM EDT Infusion [facility] at [address] [address] 07/04/2026 1:45 PM EST Appointment Echo Lab [address] [place] [address] Julián Galvez MD [address] [place] [address], [address] [address] 07/18/2026 2:00 PM EDT Office Visit [facility] [address] [place] [address] 3rd Floor, [address] [address] Julián Galvez MD [address] [place] [address], [address] [address] documented as of this encounter Results * [...] significant abnormalities. POS - [id number] Bibi Tobias OUTSIDE PROPERTY AGENT IMG MR HEAD/NECK Final Result documented in this encounter Visit Diagnoses Diagnosis Weakness Other malaise and fatigue Weakness Other malaise and fatigue documented in this encounter Care Teams Housesmith Relationship Specialty Start Date End Date Napoleon Michele MD [address] [address] [email or web address] PCP - General 02/12/17 04/13/19 Shiloh Gauthier MD [address] [address] PCP - General Family Medicine 04/14/19 06/20/20 Malika James MD [address] [place] [address] [email or web address] PCP - General 06/21/20 12/03/20 Venancio Lomeli NP [address] [place] [address] PCP - General Family Medicine 12/04/20 02/19/21 Cooper Adam MD [address] [address] PCP - General Family Medicine 02/20/21 Stephanie Andino DO [address] [address] [email or web address] Primary Oncologist Hematology and Oncology 03/10/1704/23 Salvador Jenkins MD 30 [place] [address] [email or web address] Primary Oncologist Medical Oncology 04/24/20 Faye Davey CNP 30 [place] [address] [email or web address] Nurse Practitioner Medical Oncology 02/27/21 documented as of this encounter Additional Source Comments The information contained in this document represents components of the legal health record. It is not the complete legal health record.[facility]
--- OUTSIDE RECORDS SUMMARY | 2025-01-23 09:51 | XMS_ITS | Encounter Summary ---
Author Organization [facility] Address [address] [place] [address] [place] [address] Phone Care Team Providers Care Caustic Liquor Maker Name Role Phone Stephanie Andino DO Unavailable Shiloh Gauthier MD Primary Care Provider Salavdor Jenkins MD Unavailable [phone] Malika James MD Primary Care Provider [phone] Venancio Lomeli WOOD PREPARATION SUPERVISOR Primary Care Provider [phone] Cooper Adam MD Primary Care Provide r Faye Davey CNP Unavailable Encounter Details Date Type Department Care Team (Late st Contact Info) Description 05/16/2019 Procedure Pass [facility] Endoscopy Admitting Dept Virtual Department 30 [place] [address] Social History Tobacco Use Types Packs/Day Years [...] Description 07/15/2024 Procedure Pass Echo Lab [address] [place] [address] 01/24/2025 2:20 PM EDT Infusion [facility] at [address] [address] 02/21/2025 1:00 PM EDT Infusion [facility] at [address] [address] 07/04/2026 1:45 PM EST Appointment Echo Lab [address] [place] [address] Julián Galvez MD [address] [place] [address], [address] [address] [email or web address] 07/18/2026 2:00 PM EDT Office Visit [facility] [address] [place] [address] Dr 3rd Floor, [address] [address] Julián Galvez MD [address] [place] [address], [address] [address] [email or web address] documented as of this encounter Visit Diagnoses Not on filedocumented in this encounter Care Teams Caustic Liquor Maker Relationship Specialty Start Date End Date Shiloh Gauthier MD [address] [place] [address] PCP - General Family Medicine 04/14/19 06/20/20 Malika James MD [address] [address] [email or web address] PCP - General 06/21/20 12/03/20 Venancio Lomeli NP [address] [place] [address] PCP - General Family Medicine 12/04/20 02/19/21 Cooper Adam MD [address] [address] PCP - General Family Medicine 02/20/21 Stephanie Andino DO [email or web address] Primary Oncologist Hematology and Oncology 03/10/1704/23 Salvador Jenkins MD 30 [place] [address] Primary Oncologist Medical Oncology 04/24/20 Faye Davey CNP 30 [place] [address] Nurse Practitioner Medical Oncology 02/27/21 documented as of this encounter Additional Source Comments The information contained in this document represents components of the legal health record. It is not the complete legal health record.[facility]
--- OUTSIDE RECORDS SUMMARY | 2025-01-23 09:51 | XMS_ITS | Encounter Summary ---
Author Organization [facility] Address [address] [place] [address] [place] [address] Phone Care Team Providers Care Warehouse Record Clerk Name Role Phone Napoleon Michele MD Primary Care Provider [phone] Stephanie Andino DO Unavailable Shiloh Gauthier MD Primary Care Provider Salvador Jenkins MD Unavailable [phone] Malika James MD Primary Care Provider [phone] Venancio Lomeli NP Primary Care Provider [phone] Cooper Adam MD Primary Care Provide r Faye Davey CNP Unavailable Encounter Details Date Type Department Care Team (Latest Contact Info) Description 04/06/2019 Transcribe Orders [facility] [address] [id number] Vicki Tuttle PA 10 [place], [place] [id number] Diverticulitis of large intestine without perforation or [...] Description 07/15/2024 Procedure Pass Echo Lab [address] [place] [address] 01/24/2025 2:20 PM EDT Infusion [facility] at [address] [address] 02/21/2025 1:00 PM EDT Infusion [facility] at [address] [address] 07/04/2026 1:45 PM EST Appointment Echo Lab [address] [place] [address] Julián Galvez MD [address] [place] [address], [address] [address] [email or web address] Charge 07/18/2026 2:00 PM EDT Office Visit [facility] [address] [place] [address] 3rd Floor, [address] [place] [address] Julián Galvez MD [address] [place] [address], [address] [address] [email or web address] documented as of this encounter Results * C-Reactive Protein (04/06/2019 10:52 AM EST) C REACTIVE PROTEIN 2.5 0.0 - 4.0 mg/L [facility] Blood 04/06/2019 10:5 2 AM EST 04/06/2019 10:56 AM EST us Vicki GUERRA LAB BLOOD ORDERABLES Final Result [address] [address] * (ABNORMAL) Comprehensive metabolic panel (04/06/2019 10:52 [...] ORDERABLES Final Result [facility] 30 [place] [address] * (ABNORMAL) CBC and differential (04/06/2019 10:52 [...] ORDERABLES Final Result [facility] 30 [place] [address] documented in this encounter Visit Diagnoses Diagnosis Diverticulitis of large intestine without perforation or abscess without bleeding- Primary Nausea Nausea alone documented in this encounter Care Teams Warehouse Record Clerk Relationship Specialty Start Date End Date Napoleon Michele MD [address] [place] [address] [email or web address] PCP - General 02/12/17 04/13/19 Shiloh Gauthier MD [address] [place] [address] PCP - General Family Medicine 04/14/19 06/20/20 Malika James MD [address] [place] [address] [email or web address] PCP - General 06/21/20 12/03/20 Venancio Lomeli NP [address] [place] [address] PCP - General Family Medicine 12/04/20 02/19/21 Cooper Adam MD [address] [place] [address] PCP - General Family Medicine 02/20/21 Stephanie Andino DO [address] [place] [address] [email or web address] Primary Oncologist Hematology and Oncology 03/10/1704/23 Salvador Jenkins MD [address] [place] [address] [email or web address] Primary Oncologist Medical Oncology 04/24/20 Faye Davey CNP [address] [place] [address] [email or web address] Nurse Practitioner Medical Oncology 02/27/21 documented as of this encounter Additional Source Comments The information contained in this document represents components of the legal health record. It is not the complete legal health record.[facility]
--- OUTSIDE RECORDS SUMMARY | 2025-01-23 09:51 | XMS_ITS | Encounter Summary ---
Author Organization [facility] Address [address] [place] [address] [place] [address] Phone Care Team Providers Care Cocoa Bean Roaster Helper Name Role Phone Napoleon Michele MD Primary Care Provider [phone] Stephanie Andino DO Unavailable [phone] Shiloh Gauthier MD Primary Care Provider Salvador Jenkins MD Unavailable [phone] Malika James MD Primary Care Provider [phone] Venancio Lomeli NP Primary Care Provider [phone] Cooper Adam MD Primary Care Provide r Faye Davey CNP Unavailable Encounter Details Date Type Department Care Team (Latest Contact Info) Description 12/02/2018 Transcribe Orders [facility] 30 [place] [address] Stephanie Andino DO 30 [place] [address] [email or web address] Screening for unspecified condition (Primary Dx) Social [...] Description 07/15/2024 Procedure Pass Echo Lab [address] [place] [address] 01/24/2025 2:20 PM EDT Infusion [facility] at [address] [address] 02/21/2025 1:00 PM EDT Infusion [facility] at [address] [address] 07/04/2026 1:45 PM EST Appointment Echo Lab [address] [place] [address] Julián Galvez MD [address] [place] [address] [email or web address] 07/18/2026 2:00 PM EDT Office Visit [facility] [address] [place] [address] 3rd Floor, [address] [address] Julián Galvez MD [address] [place] [address] [email or web address] documented as of this encounter Visit Diagnoses Diagnosis Screening for unspecified condition- Primary documented in this encounter Care Teams Cocoa Bean Roaster Helper Relationship Specialty Start Date End Date Napoleon Michele MD [address] [address] [email or web address] PCP - General 02/12/17 04/13/19 [facility]iloh [facility] [place] [address] PCP - General Family Medicine 04/14/19 06/20/20 Malika James MD [facility] [address] [place] [address] [email or web address] PCP - General 06/21/20 12/03/20 Venancio Lomeli NP [address] [place] [address] PCP - General Family Medicine 12/04/20 02/19/21 [facility] [address] [address] PCP - General Family Medicine 02/20/21 Stephanie Andino DO [facility] [place] [address] [email or web address] Primary Oncologist Hematology and Oncology 03/10/1704/23 Salvador Jenkins MD [address] [place] [address] Primary Oncologist Medical Oncology 04/24/20 Faye Davey CNP [address] [place] [address] Nurse Practitioner Medical Oncology 02/27/21 documented as of this encounter Additional Source Comments The information contained in this document represents components of the legal health record. It is not the complete legal health record.[facility]
--- OUTSIDE RECORDS SUMMARY | 2025-01-23 09:51 | XMS_ITS | Encounter Summary ---
Author Organization [facility] Address [address] [place] [address] [place] [address] Phone Care Team Providers Care Seat Covers Trimmer Name Role Phone Napoleon Michele MD Primary Care Provider [phone] Stephanie Andino DO Unavailable [phone] Shiloh Gauthier MD Primary Care Provider Salvador Jenkins MD Unavailable [phone] Malika James MD Primary Care Provider [phone] Venancio Lomeli NP Primary Care Provider [phone] Cooper Adam MD Primary Care Provide r Faye Davey CNP Unavailable Encounter Details Date Type Department Care Team (Latest Contact Info) Description 03/14/2019 Transcribe Orders [facility] [address] [id number] Vicki Tuttle PA 10 [place], [place] [phone] Diverticulitis of large intestine without perforation or [...] Description 07/15/2024 Procedure Pass Echo Lab [address] [place] [address] 01/24/2025 2:20 PM EDT Infusion [facility] at [address] [address] 02/21/2025 1:00 PM EDT Infusion [facility] at [address] [address] 07/04/2026 1:45 PM EST Appointment Echo Lab [address] [place] [address] Julián Galvez MD [address] [place] [address], [address] [address] [email or web address] 07/18/2026 2:00 PM EDT Office Visit [facility] [address] [place] [address] 3rd Floor, [address] [place] [address] Julián Galvez MD [address] [place] [address], [address] [address] [email or web address] documented as of this encounter Results * Comprehensive metabolic panel (03/14/2019 11:18 AM EST) SODIUM 138 133 - 146 mmol/L [facility] POTASSIUM 4.6 3.3 - 5.1 mmol/L [facility] CHLORIDE 100 96 - 108 mmol/L [facility] CO2 24 21 - 35 mmol/L [facility] BUN 18 6 - 19 mg/dL [facility] CREATININE 0.80 0.5 - 1.5 mg/dL [facility] GLUCOSE 88 70 - 99 mg/dL [facility] ALBUMIN 4.3 3.9 - 4.8 g/dL [facility] TOTAL PROTEIN 7.8 6.5 - 8.0 g/dL [facility] CALCIUM 9.8 8.4 - 10.3 mg/dL [facility] ALKALINE PHOSPHATASE 79 39 - 117 U/L [facility] TOTAL BILIRUBIN 0.3 0.0 - 1.2 mg/dL [facility] AST 19 0 - 37 U/L [facility] ALT 13 0 - 40 U/L [facility] GLOBULIN 3.5 1 - 4.8 g/dL [facility] EGFR 82 >59 mL/min/1.7 3m2 [facility] Comment:If patient is black, multiply result by 1.159. Estimated glomerular filtration rate calculated using the CKD-EPI equation. ANION GAP 19 10 - 20 mmol/L [facility] Blood 03/14/2019 11:1 8 AM EST 03/14/2019 11:24 AM EST us Vicki GUERRA LAB BLOOD ORDERABLES Final Result Performing Organization Address City/State/[facility] Co de Phone Number [facility] 30 [place] [address] * (ABNORMAL) CBC and differential (03/14/2019 11:18 AM EST) WBC 13.11(H) 3.40 - 11.20 K/uL [facility] RBC 3.65(L) 3.80 - 4.80 M/uL [facility] HGB 12.1 12.0 - 15.0 g/dL [facility] HCT 35.6(L) 36.0 - 46.0 % [facility] PLT 371 130 - 400 K/uL [facility] MCV 97.5 79.0 - 98.0 fL [facility] MCH 33.2 27.0 - 34.8 pg [facility] MCHC 34.0 31.5 - 36.0 g/dL [facility] RDW 12.6 10.8 - 14.6 % [facility] MPV 11.0 9.4 - 12.4 fl [facility] NRBC 0.00 0.00 /100 WBCs [facility] ABSOLUTE NRBC 0.00 0.00 K/uL [facility] DIFF METHOD Auto [facility] NEUTS 68.2 45.30 - 77.70 % [facility] LYMPHS 19.2 12.30 - 39.70 % [facility] MONOS 5.0 4.10 - 12.80 % [facility] EOS 6.5 0 - 7.2 % [facility] BASOS 0.7 0 - 2.80 % [facility] Granulocytes, immature (%) 0.4 0.0 - 0.9 % [facility] ABSOLUTE NEUTS 8.95(H) 1.40 - 7.70 K/uL [facility] ABSOLUTE LYMPHS 2.52 0.60 - 3.20 K/uL [facility] ABSOLUTE MONOS 0.65(H) 0.11 - 0.59 K/uL [facility] ABSOLUTE EOS 0.85(H) 0.01 - 0.50 K/uL [facility] ABSOLUTE BASOS 0.09(H) 0.00 - 0.08 K/uL [facility] Granulocytes, immature 0.05 0.00 - 0.05 K/uL [facility] Blood 03/14/2019 11:1 8 AM EST 03/14/2019 11:24 AM EST Vicki GUERRA LAB BLOOD ORDERABLES Final Result Performing Organization Address City/State/[facility] Co de Phone Number [facility] [address] [place] [address] documented in this encounter Visit Diagnoses Diagnosis Diverticulitis of large intestine without perforation or abscess without bleeding- Primary Nausea Nausea alone documented in this encounter Care Teams Seat Covers Trimmer Relationship Specialty Start Date End Date Napoleon Michele MD [address] [address] [email or web address] PCP - General 02/12/17 04/13/19 Shiloh Gauthier MD [address] [place] [address] PCP - General Family Medicine 04/14/19 06/20/20 Malika James MD [address] [facility] [address] [place] [address] [email or web address] PCP - General 06/21/20 12/03/20 Venancio Lomeli NP [address] [place] [address] PCP - General Family Medicine 12/04/20 02/19/21 [facility] [address] [address] PCP - General Family Medicine 02/20/21 Stephanie [facility] [place] [address] [email or web address] Primary Oncologist Hematology and Oncology 03/10/1704/23 Salvador Jenkins MD 30 [place] [address] Primary Oncologist Medical Oncology 04/24/20 Faye Davey CNP 30 [place] [address] Nurse Practitioner Medical Oncology 02/27/21 documented as of this encounter Additional Source Comments The information contained in this document represents components of the legal health record. It is not the complete legal health record.[facility]
--- OUTSIDE RECORDS SUMMARY | 2025-01-23 09:51 | XMS_ITS | Encounter Summary ---
Author Organization [facility] Address [address] [place] [address] [place] [address] Phone Care Team Providers Care Repair Table Operator Name Role Phone Napoleon Michele MD Primary Care Provider Stephanie Andino DO Unavailable [phone] Shiloh Gauthier MD Primary Care Provider Salvador Jenkins MD Unavailable [phone] Malika James MD Primary Care Provider [phone] Venancio Lomeli NP Primary Care Provider [phone] Cooper Adam MD Primary Care Provide r Faye Davey CNP Unavailable Encounter Details Date Type Department Care Team (Late st Contact Info) Description 12/01/2018 Procedure Pass [facility] Endoscopy Admitting Dept Virtual Department 30 [place], [place] [id number] Social History Tobacco Use Types Packs/Day Years [...] Info) Description 07/15/2024 Procedure Pass Echo Lab [address] [place] [address] 01/24/2025 2:20 PM EDT Infusion [facility] at [address] [address] 02/21/2025 1:00 PM EDT Infusion [facility] at [address] [address] 07/04/2026 1:45 PM EST Appointment Echo Lab [address] [place] [address] Julián Galvez MD [address] [place] [address], [address] [address] [email or web address] 07/18/2026 2:00 PM EDT Office Visit [facility] [address] [place] [address] 3rd Floor, [address] [address] Julián Galvez MD [address] [place] [address], [address] [address] [email or web address] documented as of this encounter Visit Diagnoses Not on filedocumented in this encounter Care Teams Repair Table Operator Relationship Specialty Start Date End Date Napoleon Michele MD [address] [address] [email or web address] PCP - General 02/12/17 04/13/19 Shiloh Gauthier MD [address] [place] [address] PCP - General Family Medicine 04/14/19 06/20/20 Malika James MD [address] [address] [email or web address] PCP - General 06/21/20 12/03/20 Venancio Lomeli NP [address] [place] [address] PCP - General Family Medicine 12/04/20 02/19/21 Cooper Adam MD [address] [address] PCP - General Family Medicine 02/20/21 Stephanie Andino DO [address] [address] [email or web address] Primary Oncologist Hematology and Oncology 03/10/1704/23 Salvador Jenkins MD 30 [place] [address] [email or web address] Primary Oncologist Medical Oncology 04/24/20 Faye Davey CNP 30 [place] [address] [email or web address] Nurse Practitioner Medical Oncology 02/27/21 documented as of this encounter Additional Source Comments The information contained in this document represents components of the legal health record. It is not the complete legal health record.[facility]
--- OUTSIDE RECORDS SUMMARY | 2025-01-23 09:51 | XMS_ITS | Encounter Summary ---
Author Organization [facility] Address [address] [place] [address] [place] [address] Phone Care Team Providers Care Assault Amphibious Vehicle Crewman Name Role Phone Napoleon Michele MD Primary Care Provider [phone] Stephanie Andino DO Unavailable [phone] Shiloh Gauthier MD Primary Care Provider Salvador Jenkins MD Unavailable [phone] Malika James MD Primary Care Provider [phone] Venancio Lomeli NP Primary Care Provider [phone] Cooper Adam MD Primary Care Provide r Faye Davey HEEL CURVER Unavailable Encounter Details Date Type Department Care Team (Latest Contact Info) Description 02/25/2019 Ancillary Orders [facility], X-Ray - [facility] 30 [place] [address] Bibi Tobias NP [address] [place] [phone] [email or web address] Cervical spondylosis without myelopathy; Thoracic spondylosis without [...] Info) Description 07/15/2024 Procedure Pass Echo Lab [address] [place] [address] 01/24/2025 2:20 PM EDT Infusion [facility] at [address] [address] 02/21/2025 1:00 PM EDT Infusion [facility] at [address] [address] 07/04/2026 1:45 PM EST Appointment Echo Lab [place] [address] [place] [address] Julián Galvez MD [address] [place] [address], [address] [address] [email or web address] 07/18/2026 2:00 PM EDT Office Visit [facility] [address] [place] [address] 3rd Floor, [address] [place] [address] Julián Galvez MD [address] [place] [address], [address] [address] documented as of this encounter Results * [...] no trauma POS - [id number] Bibi Tobias NURSES' AIDE IMG XR SPINE Final Result * XR [...] trauma POS - [id number] us Bibi Tobias NURSES' AIDE IMG XR LOWER EXTREMITY Final Res ult [...] no trauma. POS - [id number] Bibi Tobias NURSES' AIDE IMG XR LOWER EXTREMITY Final Res ult [...] myelopathy documented in this encounter Care Teams Assault Amphibious Vehicle Crewman Relationship Specialty Start Date End Date Napoleon Michele MD [address] [address] [email or web address] PCP - General 02/12/17 04/13/19 Shiloh Gauthier MD [address] [place] [address] PCP - General Family Medicine 04/14/19 06/20/20 Malika James MD [address] [address] [email or web address] PCP - General 06/21/20 12/03/20 Venancio Lomeli NP [address] [place] [address] PCP - General Family Medicine 12/04/20 02/19/21 Cooper Adam MD [address] [address] PCP - General Family Medicine 02/20/21 Stephanie Andino DO [address] [address] [email or web address] Primary Oncologist Hematology and Oncology 03/10/1704/23 Salvador Jenkins MD [address] [place] [address] Primary Oncologist Medical Oncology 04/24/20 Faye Davey CNP 30 [place] [address] Nurse Practitioner Medical Oncology 02/27/21 documented as of this encounter Additional Source Comments The information contained in this document represents components of the legal health record. It is not the complete legal health record.[facility]
--- OUTSIDE RECORDS SUMMARY | 2025-01-23 09:51 | XMS_ITS | Encounter Summary ---
Author Organization [facility] Address [address] [place] [address] [place] [address] Phone Care Team Providers Care Stencil Cutter Machine Name Role Phone Napoleon Michele MD Primary Care Provider [phone] Stephanie Andino DO Unavailable [phone] Shiloh Gauthier MD Primary Care Provider Salvador Jenkins MD Unavailable [phone] Malika James MD Primary Care Provider [phone] Venancio Lomeli NP Primary Care Provider [phone] Cooper Adam MD Primary Care Provide r Faye Davey CNP Unavailable Encounter Details Date Type Department Care Team (Late st Contact Info) Description 01/21/2018 Procedure Pass [facility] - [address] [place] [address] Social History Tobacco Use Types Packs/Day Years [...] Info) Description 07/15/2024 Procedure Pass Echo Lab [address] [place] [address] 01/24/2025 2:20 PM EDT Infusion [facility] at [address] [address] 02/21/2025 1:00 PM EDT Infusion [facility] at [address] [address] 07/04/2026 1:45 PM EST Appointment Echo Lab [address] [place] [address] Julián Galvez MD [address] [place] [address], [address] [address] [email or web address] 07/18/2026 2:00 PM EDT Office Visit [facility] [address] [place] [address] 3rd Floor, [address] [address] Julián Galvez MD [address] [place] [address], [address] [address] [email or web address] documented as of this encounter Visit Diagnoses Not on filedocumented in this encounter Care Teams Stencil Cutter Machine Relationship Specialty Start Date End Date Napoleon Michele MD [address] [address] [email or web address] PCP - General 02/12/17 04/13/19 Shiloh Gauthier MD [address] [place] [address] PCP - General Family Medicine 04/14/19 06/20/20 Malika James MD [address] [address] [email or web address] PCP - General 06/21/20 12/03/20 Venancio Lomeli NP [address] [place] [address] PCP - General Family Medicine 12/04/20 02/19/21 [place] [facility] [address] [address] PCP - General Family Medicine 02/20/21 Stephanie Andino DO [address] [address] [email or web address] Primary Oncologist Hematology and Oncology 03/10/1704/23 Salvador Jenkins MD [address] [place] [address] Primary Oncologist Medical Oncology 04/24/20 Faye Davey CNP [address] [place] [address] Nurse Practitioner Medical Oncology 02/27/21 documented as of this encounter Additional Source Comments The information contained in this document represents components of the legal health record. It is not the complete legal health record.[facility]
--- OUTSIDE RECORDS SUMMARY | 2025-01-23 09:51 | XMS_ITS | Encounter Summary ---
Author Organization [facility] Address [address] [place] [address] [place] [address] Phone Care Team Providers Care Oil Painter Name Role Phone Napoleon Michele MD Primary Care Provider [phone] Stephanie Andino DO Unavailable [phone] Shiloh Gauthier MD Primary Care Provider Salvador Jenkins MD Unavailable [phone] Malika James MD Primary Care Provider [phone] Venancio Lomeli NP Primary Care Provider [phone] Cooper Adam MD Primary Care Provide r Faye Davey CNP Unavailable Encounter Details Date Type Department Care Team (Latest Contact Info) Description 02/10/2019 Transcribe Orders Virtual Department [address] [place], [place] [id number] Sarthak Armstrong MD [address] [place] [address], [address] [place], [place] [id number] [email or web address] TIA (transient ischemic attack) (Primary Dx) [...] Description 07/15/2024 Procedure Pass Echo Lab [address] [place] [place] [address] 01/24/2025 2:20 PM EDT Infusion [facility] at [address] [address] 02/21/2025 1:00 PM EDT Infusion [facility] at [address] [address] 07/04/2026 1:45 PM EST Appointment Echo Lab [address] [place] [address] Julián Galvez MD [address] [place] [address], [address] [address] [email or web address] 07/18/2026 2:00 PM EDT Office Visit [facility] [address] [place] [address] 3rd Floor, [address] [place] [address] Julián Galvez MD [address] [place] [address], [address] [address] [email or web address] documented as of this encounter Results * [...] flow in the vertebral arteries. POS- [id number] Sarthak Armstrong MD CV US NEUROVASCULAR Final Re sult documented in this encounter Visit Diagnoses Diagnosis TIA (transient ischemic attack)- Primary Unspecified transient cerebral ischemia TIA (transient ischemic attack) Unspecified transient cerebral ischemia documented in this encounter Care Teams Oil Painter Relationship Specialty Start Date End Date Napoleon Michele MD [address] [address] [email or web address] PCP - General 02/12/17 04/13/19 Shiloh Gauthier MD [address] [place] [address] PCP - General Family Medicine 04/14/19 06/20/20 Malika James MD [address] [place] [address] [email or web address] PCP - General 06/21/20 12/03/20 Venancio Lomeli NP [address] [place] [address] PCP - General Family Medicine 12/04/20 02/19/21 Cooper Adam MD [address] [place] [address] PCP - General Family Medicine 02/20/21 Stephanie Andino DO [address] [place] [address] [email or web address] Primary Oncologist Hematology and Oncology 03/10/1704/23 Salvador Jenkins MD 30 [place] [address] [email or web address] Primary Oncologist Medical Oncology 04/24/20 Faye Davey CNP [address] [place] [address] [email or web address] Nurse Practitioner Medical Oncology 02/27/21 documented as of this encounter Additional Source Comments The information contained in this document represents components of the legal health record. It is not the complete legal health record.[facility]
--- OUTSIDE RECORDS SUMMARY | 2025-01-23 09:52 | XMS_ITS | Encounter Summary ---
Author Organization [facility] Address [address] [facility] [address] [place] [address] Phone Care Team Providers Care Webbing Seamer Pound Net Name Role Phone Salvador Jenkins MD Unavailable [phone] Cooper Adam MD Primary Care Provide r Faye Davey RAD TECH Unavailable Encounter Details Date Type Department Care Team (Late st Contact Info) Description 02/20/2021 Procedure Pass Echo Lab [address] [place] [address] Social History Tobacco Use Types Packs/Day Years [...] Info) Description 07/15/2024 Procedure Pass Echo Lab [address] [place] [address] 01/24/2025 2:20 PM EDT Infusion [facility] [address] [place] [address] 02/21/2025 1:00 PM EDT Infusion [facility] 30 [place] [address] 07/04/2026 1:45 PM EST Appointment Echo Lab [address] [place] [address] Julián Galvez MD 22 [facility], [address] [place] [address] 07/18/2026 2:00 PM EDT Office Visit [facility] [address] [place] [address] Dr 3rd Floor, [address] [place] [address] Julián Galvez MD [address] [place] [address], [address] [address] documented as of this encounter Visit Diagnoses Not on filedocumented in this encounter Care Teams Webbing Seamer Pound Net Relationship Specialty Start Date End Date Cooper Adam MD [address] [facility] [address] [place] [address] PCP - General Family Medicine 02/20/21 Salvador Jenkins MD [address] [place] [address] Primary Oncologist Medical Oncology 04/24/20 Faye Davey CNP [address] [place] [address] Nurse Practitioner Medical Oncology 02/27/21 documented as of this encounter Additional Source Comments The information contained in this document represents components of the legal health record. It is not the complete legal health record.[facility]
--- OUTSIDE RECORDS SUMMARY | 2025-01-23 09:52 | XMS_ITS | Encounter Summary ---
Author Organization [facility] Address [address] [facility] [address] [place] [address] Phone Care Team Providers Care Camera Tuning Engineer Name Role Phone Napoleon Michele MD Primary Care Provider Stephanie Andino DO Unavailable [phone] Shiloh Gauthier MD Primary Care Provider Salvador Jenkins MD Unavailable [phone] Malika James MD Primary Care Provider [phone] Venancio Lomeli NP Primary Care Provider [phone] Cooper Adam MD Primary Care Provide r Faye Davey CNP Unavailable Reason for Referral * MRI/CAT Scan - Closed Specialty Diagnoses / Procedures Referred By Contac t Referred To Contact Radiology Diagnoses Lumbar radiculopathy Procedures MRI Lumbar Spine Bibi Tobias NP Phone: tel: fax: [email or web address]:[email or web address] Referral ID Status Reason Start Date Expiration Date Visits Re quested Visits Authorized [id number] Closed 01/21/2018 01/21/2019 1 1 Encounter Details Date Type Department Care Team (Latest Contact Info) Description 01/21/2018 Ancillary Orders [facility] Department [address] [place] [address] Bibi Tobias, HORSE SHOER [address] [place] [address] [email or web address] .[email or web address] Lumbar radiculopathy Social History Tobacco Use Types [...] Info) Description 07/15/2024 Procedure Pass Echo Lab [address] [place] [address] 01/24/2025 2:[address] [facility] at [address] [address] 02/21/2025 1:00 PM EDT Infusion [facility] at [address] [address] 07/04/2026 1:45 PM EST Appointment Echo Lab [address] [place] [address] Julián Galvez MD [address] [place] [address], [address] [address] 07/18/2026 2:00 PM EDT Office Visit [facility] [address] [place] [address] 3rd Floor, [address] [address] Julián Galvez MD [address] [place] [address], [address] [address] documented as of this encounter Results * MRI LUMBAR SPINE (NEURO) WITHOUT CONTRAST (03/10/2018 12:51 PM EST) Anatomical Region Laterality Modality L-spine Magnetic Resonan ce 03/10/2018 12:4 5 PM EST Impressions 03/10/2018 1:47 PM EST Small L5-S1 disc protrusion without significant regional mass effect. No other source of pain. No evidence of an infectious process regionally. POS - [id number] Edited by: Pati Bai on 03/10/2018 1:22 [...] soft tissue findings of concern in the [id number]-ww-rqyi. Conus is at the L1-2 level. Procedure [...] other soft tissue findings ofconcern in the jtxym-lq-ohnx. Conus is at the L1-2 level. IMPRESSION: Small L5-S1 disc protrusion without significant regional mass effect. Noother source of pain. No evidence of an infectious process regionally. POS - [id number] Edited by: Pati Bai on 03/10/2018 1:22 PM Bibi Tobias NP IMG MR XSPECIALTY Final Result documented in this encounter Visit Diagnoses Diagnosis Lumbar radiculopathy Thoracic or lumbosacral neuritis or radiculitis, unspecified Lumbar radiculopathy Thoracic or lumbosacral neuritis or radiculitis, unspecified documented in this encounter Care Teams Camera Tuning Engineer Relationship Specialty Start Date End Date Napoleon Michele MD [address] [address] [email or web address] PCP - General 02/12/17 04/13/19 Shiloh Gauthier MD [address] [place] [address] PCP - General Family Medicine 04/14/19 06/20/20 Malika James MD [address] [facility] [address] [place] [address] [email or web address] PCP - General 06/21/20 12/03/20 Venancio Lomeli NP [address] [place] [address] PCP - General Family Medicine 12/04/20 02/19/21 Cooper Adam MD [address] [address] PCP - General Family Medicine 02/20/21 Stephanie Andino DO [address] [address] [email or web address] Primary Oncologist Hematology and Oncology 03/10/1704/23 Salvador Jenkins MD [address] [place] [address] Primary Oncologist Medical Oncology 04/24/20 Faye Davey CNP 30 [place] [address] Nurse Practitioner Medical Oncology 02/27/21 documented as of this encounter Additional Source Comments The information contained in this document represents components of the legal health record. It is not the complete legal health record.[facility]
--- OUTSIDE RECORDS SUMMARY | 2025-01-23 09:52 | XMS_ITS | Encounter Summary ---
Author Organization [facility] Address [address] [place] [address] [place] [address] Phone Care Team Providers Care Filter Machine Operator Name Role Phone Napoleon Michele MD Primary Care Provider [phone] Stephanie Andino DO Unavailable [phone] Shiloh Gauthier MD Primary Care Provider Salvador Jenkins MD Unavailable [phone] Malika James MD Primary Care Provider [phone] Venancio Lomeli NP Primary Care Provider [phone] Cooper Adam MD Primary Care Provide r Faye Davey CNP Unavailable Encounter Details Date Type Department Care Team (Latest Contact Info) Description 01/18/2018 Transcribe Orders [facility] Laboratory 30 [place] [address] Bibi Tobias NP [address] [place] [phone] [email or web address] Chronic pain syndrome (Primary Dx) Social History [...] Description 07/15/2024 Procedure Pass Echo Lab [address] [place] [address] 01/24/2025 2:20 PM EDT Infusion Located [facility] at [address] [address] 02/21/2025 1:00 PM EDT Infusion [facility] at [address] [address] 07/04/2026 1:45 PM EST Appointment Echo Lab [address] [place] [address] Julián Galvez MD [address] [place] [address], [address] [address] [email or web address] 07/18/2026 2:00 PM EDT Office Visit [facility] [address] [place] [address] 3rd Floor, [address] [place] [address] Julián Galvez MD [address] [place] [address], [address] [place] [address] documented as of this encounter Results * (ABNORMAL) C-reactive protein, high sensitivity (01/18/2018 11:58 AM EDT) CRP, HIGH SENSITIVITY 7.8(H) 0.0 - 5.0 mg/L [facility] Comment: Interpretation: hsCRP level (mg/L) Relative Risk <1.0 Low 1.0 - 3.0 Average >3.0 High Neonates (0-3 weeks): 0.1 - 4.1 mg/L Children (2 months - 15 years): 0.1 - 2.8 mg/L Blood 01/18/2018 11:5 8 AM EDT 01/18/2018 12:03 PM EDT us Bibi Tobias NP LAB BLOOD ORDERABLES Final Resul t Performing Organization Address City/[facility]/ZIP Co de Phone Number [address] [address] * CCP IgG antibodies (01/18/2018 11:58 AM EDT) CCP AB, S <15.6 <20.0 (Negative) U [facility] DPT OF LAB MED AND PAT+ Blood 01/18/2018 11:5 8 AM EDT 01/18/2018 12:03 PM EDT us Bibi Tobias NP LAB BLOOD ORDERABLES Final Resul t Performing Organization Address [facility]/ZIP Co de Phone Number [facility] DPT OF LAB MED AND PAT+ [address] [place] [address] * Rheumatoid factor (01/18/2018 11:58 AM EDT) RHEUMATOID FACTOR <10.0 0.0 - 14.0 IU/ml [facility] Blood 01/18/2018 11:5 8 AM EDT 01/18/2018 12:03 PM EDT us Bibi Tobias NP LAB BLOOD ORDERABLES Final Resul t Performing Organization Address [facility]/ZIP Co de Phone Number [address] [address] * Antinuclear antibody (JESSICA) (01/18/2018 11:58 AM EDT) JESSICA SCREEN ON HEP 2 Negative Negative [facility] Blood 01/18/2018 11:5 8 AM EDT 01/18/2018 12:03 PM EDT us Bibi Tobias NP LAB BLOOD ORDERABLES Final Resul t Performing Organization Address City/[facility]/ZIP Co de Phone Number [address] [address] * (ABNORMAL) Comprehensive metabolic panel (01/18/2018 11:58 AM EDT) SODIUM 145 133 - 146 mmol/L [facility] POTASSIUM 4.1 3.3 - 5.1 mmol/L [facility] CHLORIDE 104 96 - 108 mmol/L [facility] CO2 24 21 - 35 mmol/L [facility] BUN 15 6 - 19 mg/dL [facility] CREATININE 0.90 0.5 - 1.5 mg/dL [facility] GLUCOSE 132(H) 70 - 99 mg/dL [facility] ALBUMIN 4.1 3.9 - 4.8 g/dL [facility] TOTAL PROTEIN 7.3 6.5 - 8.0 g/dL [facility] CALCIUM 9.6 8.4 - 10.3 mg/dL [facility] ALKALINE PHOSPHATASE 107 39 - 117 U/L [facility] TOTAL BILIRUBIN 0.3 0.0 - 1.2 mg/dL [facility] AST 11 0 - 37 U/L [facility] ALT 11 0 - 40 U/L [facility] GLOBULIN 3.2 1 - 4.8 g/dL [facility] EGFR 71 >59 mL/min/1.7 3m2 [facility] Comment:If patient is black, multiply result by 1.159. Estimated glomerular filtration rate calculated using the CKD-EPI equation. ANION GAP 21(H) 10 - 20 mmol/L [facility] Blood 01/18/2018 11:5 8 AM EDT 01/18/2018 12:03 PM EDT us Bibi Tobias NP LAB BLOOD ORDERABLES Final Resul t [facility] [address] [place] [address] * Sedimentation rate (ESR) (01/18/2018 11:58 AM EDT) ESR 16 0 - 30 mm/h [facility] Blood 01/18/2018 11:5 8 AM EDT 01/18/2018 12:03 PM EDT us Bibi Tobias NP LAB BLOOD ORDERABLES Final Resul t [facility] [address] [place], [place] [id number] * (ABNORMAL) CBC and differential (01/18/2018 11:58 AM EDT) WBC 15.77(H) 3.40 - 11.20 K/uL [facility] RBC 3.94 3.80 - 4.80 M/uL [facility] HGB 12.2 12.0 - 15.0 g/dL [facility] HCT 36.6 36.0 - 46.0 % [facility] PLT 371 130 - 400 K/uL [facility] MCV 92.9 79.0 - 98.0 fL [facility] MCH 31.0 27.0 - 34.8 pg [facility] MCHC 33.3 31.5 - 36.0 g/dL [facility] RDW 12.2 10.8 - 14.6 % [facility] MPV 10.6 9.4 - 12.4 fl [facility] NRBC 0.00 /100 WBCs [facility] ABSOLUTE NRBC 0.00 K/uL [facility] DIFF METHOD Auto [facility] NEUTS 76.8 45.30 - 77.70 % [facility] LYMPHS 15.2 12.30 - 39.70 % [facility] MONOS 5.4 4.10 - 12.80 % [facility] EOS 1.5 0 - 7.2 % [facility] BASOS 0.5 0 - 2.80 % [facility] Granulocytes, immature (%) 0.6 0.0 - 0.9 % [facility] ABSOLUTE NEUTS 12.12(H) 1.40 - 7.70 K/uL [facility] ABSOLUTE LYMPHS 2.40 0.60 - 3.20 K/uL [facility] ABSOLUTE MONOS 0.85(H) 0.11 - 0.59 K/uL [facility] ABSOLUTE EOS 0.23 0.01 - 0.50 K/uL [facility] ABSOLUTE BASOS 0.08 0.00 - 0.08 K/uL [facility] Granulocytes, immature 0.09(H) 0.00 - 0.05 K/uL [facility] Blood 01/18/2018 11:5 8 AM EDT 01/18/2018 12:03 PM EDT us Bibi Tobias NAILING MACHINE FEEDER LAB BLOOD ORDERABLES Final Resul t [facility] [address] [place] [address] documented in this encounter Visit Diagnoses Diagnosis Chronic pain syndrome- Primary documented in this encounter Care Teams Filter Machine Operator Relationship Specialty Start Date End Date Napoleon Michele MD [address] [address] [email or web address] PCP - General 02/12/17 04/13/19 Shiloh Gauthier MD [address] [place] [address] PCP - General Family Medicine 04/14/19 06/20/20 Malika James MD [address] [place] [address] [email or web address] PCP - General 06/21/20 12/03/20 Venancio Lomeli NP [address] [place] [address] PCP - General Family Medicine 12/04/20 02/19/21 [facility] [address] [address] PCP - General Family Medicine 02/20/21 Stephanie Andino DO [address] [address] [email or web address] Primary Oncologist Hematology and Oncology 03/10/1704/23 Salvador Jenkins MD [address] [place] [address] Primary Oncologist Medical Oncology 04/24/20 Faye Davey CNP [address] [place] [address] Nurse Practitioner Medical Oncology 02/27/21 documented as of this encounter Additional Source Comments The information contained in this document represents components of the legal health record. It is not the complete legal health record.[facility]
--- OUTSIDE RECORDS SUMMARY | 2025-01-23 09:52 | XMS_ITS | Encounter Summary ---
Author Organization [facility] Address [address] [place] [address] [place] [address] Phone Care Team Providers Care Safe Deposit Attendant Name Role Phone Shiloh Gauthier MD Primary Care Provider Salvador Jenkins MD Unavailable [phone] Malika James MD Primary Care Provider [phone] Venancio Lomeli NP Primary Care Provider [phone] Cooper Adam MD Primary Care Provide r Faye Davey SHOWPLACE MANAGER Unavailable Reason for Referral * MRI/CAT Scan - Closed Specialty Diagnoses / Procedures Referred By Contac t Referred To Contact Radiology Diagnoses Lumbar radiculopathy Procedures MRI Lumbar Spine Bibi Tobias NP [address] [place] [address] Phone: tel: fax: mailto:[email or web address] Referral ID Status Reason Start Date Expiration Date Visits Re quested Visits Authorized [id number] Closed 06/13/2020 06/13/2021 1 1 Encounter Details Date Type Department Care Team (Latest Contact Info) Description 06/13/2020 Ancillary Orders Virtual Department [address] [place] [address] Bibi Tobias, SERVICE RESTORER EMERGENCY [address] [place] [phone] [email or web address] Lumbar radiculopathy Social History Tobacco Use Types [...] Description 07/15/2024 Procedure Pass Echo Lab [address] [place] [address] 01/24/2025 2:20 PM EDT Infusion [facility] at [address] [address] 02/21/2025 1:00 PM EDT Infusion [facility] at [address] [address] 07/04/2026 1:45 PM EST Appointment Echo Lab [address] [place] [address] Julián Galvez MD [address] [place] [address], [address] [address] 07/18/2026 2:00 PM EDT Office Visit [facility] [address] [place] [address] 3rd Floor, [address] [address] Julián Galvez MD [address] [place] [address], [address] [address] documented as of this encounter Results * [...] herniation,canal/neural foraminal stenosis or nerve root compression. us Bibi Tobias SERVICE RESTORER EMERGENCY IMG MR XSPECIALTY Final Result documented in this encounter Visit Diagnoses Diagnosis Lumbar radiculopathy Thoracic or lumbosacral neuritis or radiculitis, unspecified Lumbar radiculopathy Thoracic or lumbosacral neuritis or radiculitis, unspecified documented in this encounter Care Teams Safe Deposit Attendant Relationship Specialty Start Date End Date Shiloh Gauthier MD [address] [place] [address] PCP - General Family Medicine 04/14/19 06/20/20 Malika James MD [address] [place] [address] [email or web address] PCP - General 06/21/20 12/03/20 Venancio Lomeli NP [address] [place] [address] PCP - General Family Medicine 12/04/20 02/19/21 Cooper Adam MD [address] [address] PCP - General Family Medicine 02/20/21 Salvador Jenkins MD [address] [place] [address] [email or web address] Primary Oncologist Medical Oncology 04/24/20 Faye Davey CNP [address] [place] [address] Nurse Practitioner Medical Oncology 02/27/21 documented as of this encounter Additional Source Comments The information contained in this document represents components of the legal health record. It is not the complete legal health record.[facility]
--- OUTSIDE RECORDS SUMMARY | 2025-01-23 09:52 | XMS_ITS | Encounter Summary ---
Author Organization [facility] Address [address] [place] [address] [place] [address] Phone Care Team Providers Care Conservation Assistant Name Role Phone Napoleon Michele MD Primary Care Provider [phone] Stephanie Andino DO Unavailable [phone] Shiloh Gauthier MD Primary Care Provider Salvador Jenkins MD Unavailable [phone] Malika James MD Primary Care Provider [phone] Venancio Lomeli NP Primary Care Provider [phone] Cooper Adam MD Primary Care Provide r Faye Davey CNP Unavailable Encounter Details Date Type Department Care Team (Latest Contact Info) Description 02/03/2018 Ancillary Orders Virtual Department [address] [place] [address] Bibi Tobias NP [address] [place] [phone] [email or web address] Social History Tobacco Use Types [...] Description 07/15/2024 Procedure Pass Echo Lab [address] [place] [address] 01/24/2025 2:20 PM EDT Infusion [facility] at [address] [address] 02/21/2025 1:00 PM EDT Infusion [facility] at [address] [address] 07/04/2026 1:45 PM EST Appointment Echo Lab [address] [place] [address] Julián Galvez MD [address] [place] [address], [address] [address] [email or web address] 07/18/2026 2:00 PM EDT Office Visit [facility] [address] [place] [address] Dr 3rd Floor, [address] [address] Julián Galvez MD [address] [place] [address], [address] [address] [email or web address] documented as of this encounter Visit Diagnoses Diagnosis Lumbar radiculopathy Thoracic or lumbosacral neuritis or radiculitis, unspecified documented in this encounter Care Teams Conservation Assistant Relationship Specialty Start Date End Date Napoleon Michele MD [address] [address] [email or web address] PCP - General 02/12/17 04/13/19 Shiloh Gauthier MD [address] [place] [address] PCP - General Family Medicine 04/14/19 06/20/20 Malika James MD [address] [facility] [address] [place] [address] [email or web address] PCP - General 06/21/20 12/03/20 Venancio Lomeli NP [address] [place] [address] PCP - General Family Medicine 12/04/20 02/19/21 Cooper Adam MD [address] [address] PCP - General Family Medicine 02/20/21 Stephanie Andino DO [address] [address] [email or web address] Primary Oncologist Hematology and Oncology 03/10/1704/23 Salvador Jenkins MD 30 [place] [address] Primary Oncologist Medical Oncology 04/24/20 Faye Davey CNP 30 [place] [address] Nurse Practitioner Medical Oncology 02/27/21 documented as of this encounter Additional Source Comments The information contained in this document represents components of the legal health record. It is not the complete legal health record.[facility]
--- OUTSIDE RECORDS SUMMARY | 2025-01-23 09:52 | XMS_ITS | Encounter Summary ---
Author Organization [facility] Address [address] [facility] [address] [place] [address] Phone Care Team Providers Care Communication Center Coordinator Name Role Phone Salvador Jenkins MD Unavailable [phone] Cooper Adam MD Primary Care Provide r Faye Davey [employer] Unavailable Encounter Details Date Type Department Care Team (Late st Contact Info) Description 06/06/2021 Transcribe Orders [facility] [address] [place] [address] Rashi Garcia MD [address] [facility], [address] [place] [address] [email or web address] Social History Tobacco Use Types Packs/Day Years [...] Description 07/15/2024 Procedure Pass Echo Lab [address] [place], [place] [id number] 01/24/2025 2:20 PM EDT Infusion [facility] at [address] [address] 02/21/2025 1:[address] [facility] at [address] [address] 07/04/2026 1:45 PM EST Appointment Echo Lab [address] [place] [address] Julián Galvez MD [address] [place] [address], [address] [address] 07/18/2026 2:00 PM EDT Office Visit [facility] [address] [place] [address] 3rd Floor, [address] [place] [address] Julián Galvez MD [address] [place] [address], [address] [address] documented as of this encounter Visit Diagnoses Not on filedocumented in this encounter Care Teams Communication Center Coordinator Relationship Specialty Start Date End Date [facility] [address] [address] PCP - General Family Medicine 02/20/21 Salvador Jenkins MD [address] [place] [address] Primary Oncologist Medical Oncology 04/24/20 Faye Davey CNP [address] [place] [address] Nurse Practitioner Medical Oncology 02/27/21 documented as of this encounter Additional Source Comments The information contained in this document represents components of the legal health record. It is not the complete legal health record.[facility]
--- OUTSIDE RECORDS SUMMARY | 2025-01-23 09:52 | XMS_ITS | Encounter Summary ---
Author Organization [facility] Address [address] [facility] [address] [place] [address] Phone Care Team Providers Care Donor Services Coordinator Name Role Phone Salvador Jenkins MD Unavailable [phone] Cooper Adam MD Primary Care Provide r Faye Davey GLASSBLOWER Unavailable Encounter Details Date Type Department Care Team (Late st Contact Info) Description 10/08/2021 Procedure Pass Echo Lab [address] [place] [address] Social History Tobacco Use Types Packs/Day Years [...] Description 07/15/2024 Procedure Pass Echo Lab [address] [place] [address] 01/24/2025 2:20 PM EDT Infusion [facility] [address] [place] [address] 02/21/2025 1:00 PM EDT Infusion [facility] 30 [place] [address] 07/04/2026 1:45 PM EST Appointment Echo Lab [address] [place] [address] Julián Galvez MD [address] [facility], [address] [place] [address] 07/18/2026 2:00 PM EDT Office Visit [facility] [address] [place] [address] Dr 3rd Floor, [address] [place] [address] Julián Galvez MD [address] [place] [address], [address] [address] documented as of this encounter Visit Diagnoses Not on filedocumented in this encounter Care Teams Donor Services Coordinator Relationship Specialty Start Date End Date Cooper Adam MD [address] [facility] [address] [place] [address] PCP - General Family Medicine 02/20/21 Salvador Jenkins MD [address] [place] [address] Primary Oncologist Medical Oncology 04/24/20 Faye Davey CNP [address] [place] [address] Nurse Practitioner Medical Oncology 02/27/21 documented as of this encounter Additional Source Comments The information contained in this document represents components of the legal health record. It is not the complete legal health record.[facility]
--- OUTSIDE RECORDS SUMMARY | 2025-01-23 09:52 | XMS_ITS | Encounter Summary ---
Author Organization [facility] Address [address] [place] [address] [place] [address] Phone Care Team Providers Care Demographic Analyst Name Role Phone Napoleon Michele MD Primary Care Provider Stephanie Andino DO Unavailable [phone] Shiloh Gauthier MD Primary Care Provider Salvador Jenkins MD Unavailable [phone] Malika James MD Primary Care Provider [phone] Venancio Lomeli NP Primary Care Provider [phone] Cooper Adam MD Primary Care Provide r Faye Davey CNP Unavailable Encounter Details Date Type Department Care Team (Late st Contact Info) Description 12/14/2018 Procedure Pass [facility] [address] [place], [place] [address] Social History Tobacco Use Types Packs/Day Years [...] Info) Description 07/15/2024 Procedure Pass Echo Lab [address] [place] [address] 01/24/2025 2:20 PM EDT Infusion [facility] at [address] [address] 02/21/2025 1:00 PM EDT Infusion [facility] at [address] [address] 07/04/2026 1:45 PM EST Appointment Echo Lab [address] [place] [address] Julián Galvez MD [address] [place] [address] [email or web address] 07/18/2026 2:00 PM EDT Office Visit [facility] [address] [place] [address] 3rd Floor, [address] [address] Julián Galvez MD [address] [place] [address] [email or web address] documented as of this encounter Visit Diagnoses Not on filedocumented in this encounter Care Teams Demographic Analyst Relationship Specialty Start Date End Date Napoleon Michele MD [address] [place] [address] [email or web address] PCP - General 02/12/17 04/13/19 Shiloh Gauthier MD [address] [place] [address] PCP - General Family Medicine 04/14/19 06/20/20 Malika James MD [address] [place] [address] [email or web address] PCP - General 06/21/20 12/03/20 Venancio Lomeli NP [address] [place] [address] PCP - General Family Medicine 12/04/20 02/19/21 [facility] [address] [address] PCP - General Family Medicine 02/20/21 Stephanie Andino DO [address] [address] [email or web address] Primary Oncologist Hematology and Oncology 03/10/1704/23 Salvador Jenkins MD 30 [place] [address] Primary Oncologist Medical Oncology 04/24/20 Faye Davey CNP 30 [place] [address] Nurse Practitioner Medical Oncology 02/27/21 documented as of this encounter Additional Source Comments The information contained in this document represents components of the legal health record. It is not the complete legal health record.[facility]
--- OUTSIDE RECORDS SUMMARY | 2025-01-23 09:52 | XMS_ITS | Encounter Summary ---
Author Organization [facility] Address [address] [place] [address] [place] [address] Phone Care Team Providers Care Ent Nurse Name Role Phone Napoleon Michele MD Primary Care Provider Stephanie Andino DO Unavailable [phone] Shiloh Gauthier MD Primary Care Provider Salvador Jenkins MD Unavailable [phone] Malika James MD Primary Care Provider [phone] Venancio Lomeli NP Primary Care Provider [phone] Cooper Adam MD Primary Care Provide r Faye Davey CNP Unavailable Encounter Details Date Type Department Care Team (Latest Contact Info) Description 12/30/2017 Transcribe Orders [facility] 30 [place] [address] Stephanie Andino DO 30 [place] [address] [email or web address] Screening for condition (Primary Dx) Social History [...] Description 07/15/2024 Procedure Pass Echo Lab [address] [place] [address] 01/24/2025 2:20 PM EDT Infusion [facility] at [address] [address] 02/21/2025 1:00 PM EDT Infusion [facility] at [address] [address] 07/04/2026 1:45 PM EST Appointment Echo Lab [address] [place] [address] Julián Galvez MD [address] [place] [address], [address] [address] 07/18/2026 2:00 PM EDT Office Visit [facility] [address] [place] [address] 3rd Floor, [address] [place] [address] Julián Galvez MD [address] [place] [address] [address] [email or web address] documented as of this encounter Results * Chemistry Hold (12/30/2017 1:39 PM EDT) Blood 12/30/2017 1:39 PM EDT 12/30/2017 1:54 PM EDT Stephanie Andino LAB BLOOD ORDERABLES Final Result [employer] documented in this encounter Visit Diagnoses Diagnosis Screening for condition- Primary Screening for unspecified condition documented in this encounter Care Teams Ent Nurse Relationship Specialty Start Date End Date Napoleon Michele MD [address] [address] [email or web address] PCP - General 02/12/17 04/13/19 Shiloh Gauthier MD [address] [place] [address] PCP - General Family Medicine 04/14/19 06/20/20 Malika James MD [address] [place] [address] [email or web address] PCP - General 06/21/20 12/03/20 Venancio Lomeli NP [address] [place] [address] PCP - General Family Medicine 12/04/20 02/19/21 Cooper Adam MD [address] [address] PCP - General Family Medicine 02/20/21 Stephanie Andino DO [address] [address] [email or web address] Primary Oncologist Hematology and Oncology 03/10/1704/23 Salvador Jenkins MD 30 [place] [address] [email or web address] Primary Oncologist Medical Oncology 04/24/20 Faye Davey CNP 30 [place] [address] [email or web address] Nurse Practitioner Medical Oncology 02/27/21 documented as of this encounter Additional Source Comments The information contained in this document represents components of the legal health record. It is not the complete legal health record.[facility]
--- OUTSIDE RECORDS SUMMARY | 2025-01-23 09:53 | XMS_ITS | Encounter Summary ---
Author Organization [facility] Address [address] [facility] [address] [place] [address] Phone Care Team Providers Care Will Call Clerk Name Role Phone Salvador Jenkins MD Unavailable [phone] Cooper Adam MD Primary Care Provide r Faye Davey CNP Unavailable Reason for Visit * Reason Onset Date Comments Appointment 11/01/2024 Pt no show, need s new appt Encounter Details Date Type Department Care Team (Late st Contact Info) Description 11/01/2024 Telephone [facility] IP Oncology - Virtual Department [address] [place] [address] Nelson Barba, Marleny Perez, RN 30 [place] [address] [email or web address] Appointment (Pt no show, needs new appt [...] Info) Description 07/15/2024 Procedure Pass Echo Lab [address] [place] [address] 01/24/2025 2:20 PM EDT Infusion [facility] at [address] [address] 02/21/2025 1:00 PM EDT Infusion [facility] at [address] [address] 07/04/2026 1:45 PM EST Appointment Echo Lab [address] [place] [address] Julián Galvez MD [address] [place] [address], [address] [address] 07/18/2026 2:00 PM EDT Office Visit [facility] [address] [place] [address] 3rd Floor, [address] [address] Julián Galvez MD [address] [place] [address], [address] [address] documented as of this encounter Visit Diagnoses Not on filedocumented in this encounter Care Teams Will Call Clerk Relationship Specialty Start Date End Date Cooper Adam MD [address] [address] PCP - General Family Medicine 02/20/21 Salvador Jenkins MD [address] [place] [address] [email or web address] Primary Oncologist Medical Oncology 04/24/20 Faye Davey CNP [address] [place] [address] [email or web address] Nurse Practitioner Medical Oncology 02/27/21 documented as of this encounter Additional Source Comments The information contained in this document represents components of the legal health record. It is not the complete legal health record.[facility]
--- OUTSIDE RECORDS SUMMARY | 2025-01-23 09:53 | XMS_ITS | Encounter Summary ---
Author Organization [facility] Address [address] [facility] [address] [place] [address] Phone Care Team Providers Care Lime Kiln And Recausticizing Operator Name Role Phone Salvador Jenkins MD Unavailable [phone] Cooper Adam MD Primary Care Provide r Faye Davey CNP Unavailable Reason for Visit * Reason Comments Medication Refill Encounter Details Date Type Department Care Team (Late st Contact Info) Description 06/09/2024 Refill [facility] [address] [place] [address] 3rd Floor, [address] [place] [address] Chucho Gage MD, [place] [address] [facility], [address] [place] [address] [email or web address] Medication Refill Social History [...] Info) Description 07/15/2024 Procedure Pass Echo Lab [address] [place] [address] 01/24/2025 2:20 PM EDT Infusion [facility] at [address] [address] 02/21/2025 1:00 PM EDT Infusion [facility] at [address] [address] 07/04/2026 1:45 PM EST Appointment Echo Lab [address] [place] [address] Julián Galvez MD [address] [place] [address] [email or web address] 07/18/2026 2:00 PM EDT Office Visit [facility] [address] [place] [address] 3rd Floor, [address] [address] Julián Galvez MD [address] [place] [address] documented as of this encounter Visit Diagnoses Not on filedocumented in this encounter Care Teams Lime Kiln And Recausticizing Operator Relationship Specialty Start Date End Date Cooper Adam MD [address] [address] PCP - General Family Medicine 02/20/21 Salvador Jenkins MD [address] [place] [address] [email or web address] Primary Oncologist Medical Oncology 04/24/20 Faye Davey CNP [address] [place] [address] [email or web address] Nurse Practitioner Medical Oncology 02/27/21 documented as of this encounter Additional Source Comments The information contained in this document represents components of the legal health record. It is not the complete legal health record.[facility]
--- OUTSIDE RECORDS SUMMARY | 2025-01-23 09:53 | XMS_ITS | Encounter Summary ---
Author Organization [facility] Address [address] [facility] [address] [place] [address] Phone Care Team Providers Care Kettle Cleaner Name Role Phone Salvador Jenkins MD Unavailable [phone] Cooper Adam MD Primary Care Provide r Faye Davey CNP Unavailable Encounter Details Date Type Department Care Team (Late st Contact Info) Description 11/01/2024 Telephone [facility] IP Oncology - Virtual Department 30 [place] [address] Marleny Cunningham, RN 30 [place] [address] [email or web address] Social History Tobacco Use Types Packs/Day Years [...] Upcoming Encounters Date Type Department Care Team ([facility] st Contact Info) Description 07/15/2024 Procedure Pass Echo Lab [address] [place] [address] 01/24/2025 2:20 PM EDT Infusion [facility] at [address] [address] 02/21/2025 1:00 PM EDT Infusion [facility] at [address] [address] 07/04/2026 1:45 PM EST Appointment Echo Lab [address] [place] [address] Julián Galvez MD [address] [place] [address] 07/18/2026 2:00 PM EDT Office Visit [facility] [address] [place] [address] 3rd Floor, [address] [place] [address] Julián Galvez MD [address] [place] [address] documented as of this encounter Visit Diagnoses Not on filedocumented in this encounter Care Teams Kettle Cleaner Relationship Specialty Start Date End Date Cooper Adam MD [address] [address] PCP - General Family Medicine 02/20/21 Salvador Jenkins MD 30 [place] [address] Primary Oncologist Medical Oncology 04/24/20 PackFaye CNP [address] [place] [address] [email or web address] Nurse Practitioner Medical Oncology 02/27/21 documented as of this encounter Additional Source Comments The information contained in this document represents components of the legal health record. It is not the complete legal health record.[facility]
--- OUTSIDE RECORDS SUMMARY | 2025-01-23 09:53 | XMS_ITS | Clinical Summary ---
Author Organization [facility] Address [address] [facility] [address] [place] [address] Phone Care Team Providers Care Material Disposition Inspector Name Role Phone Salvador Jenkins MD Unavailable [phone] Cooper Adam MD Primary Care Provide r Faye Davey PAINT STOCK CLERK Unavailable Allergies Active Allergy Reactions Criticality Noted [...] Encounters Date Type Department Care Team Description 01/04/2025 2:40 PM EDT Infusion [facility] at [address] [address] Salvador Jenkins MD Pernicious anemia (Primary Dx); Vitamin B12 deficiency 12/27/2024 Telephone [facility] at [address] [address] Salvador Jenkins MD cancelation 11/29/2024 3:20 PM EDT Infusion [facility] at [address] [address] Salvador Jenkins MD Hickson, Lauren, FLAQUITA Pernicious anemia (Primary Dx); Vitamin B12 deficiency 11/29/2024 2:40 PM EDT Office Visit [facility] at [address] [address] Salvador Jenkins MD Other elevated white blood cell (WBC) count (Primary Dx); Pernicious anemia; Vitamin B12 deficiency 11/29/2024 1:37 PM EDT - 11/29/2024 11:59 PM EDT Hospital Encounter [facility] [address] [place] [address] Salvador Jenkins MD Discharge Disposition: Home or Self Care 11/22/2024 Orders Only [facility] at [address] [address] Katharine Tristan CMA Vitamin B12 deficiency (Primary Dx) 11/02/2024 2:00 PM EDT Infusion [facility] at [address] [address] Salvador Jenkins MD Flynn, Margaret Broad, RN Pernicious anemia (Primary Dx); Vitamin B12 deficiency 11/02/2024 Orders Only [facility] at [address] [address] Fernanda Peralta FNP 11/01/2024 Telephone [facility] Oncology - Virtual Department [address] [place] [address] Marleny Cunningham, FLAQUITA Appointment (Pt no show, needs new appt ) 11/01/2024 Telephone [facility] IP Oncology - Virtual Department [address] [place] [address] Marleny Cunningham, FLAQUITA from Last 3 Months Immunizations Immunization Administration Dates Next Due COVID-19 (Pre-02/16) Pfizer Vaccine, mRNA, PF 03/14/2021,08/26/2020,08/05/2020 [id number] FORMULATION 03/19/2009 INFLUENZA, SPLIT VIRUS, TRIVALENT PF [...] Description 07/15/2024 Procedure Pass Echo Lab [address] [place] [address] 01/24/2025 2:20 PM EDT Infusion [facility] at [address] [address] 02/21/2025 1:00 PM EDT Infusion [facility] at [address] [address] 07/04/2026 1:45 PM EST Appointment Echo Lab [address] [place] [address] Julián Galvez MD 22 [facility], [address] [place] [address] 07/18/2026 2:00 PM EDT Office Visit [facility] [address] [place] [address] 3rd Floor, [address] [place] [address] Julián Galvez MD [address] [place] [address], [address] [place] [address] [email or web address] Health Maintenance Due Date Last [...] EDT) SODIUM 139 133 - 146 mmol/L [facility] POTASSIUM 3.3 3.3 - 5.1 mmol/L [facility] CHLORIDE 101 96 - 108 mmol/L [facility] CO2 25 21 - 35 mmol/L [facility] BUN 16 6 - 19 mg/dL [facility] CREATININE 1.00 0.5 - 1.5 mg/dL [facility] GLUCOSE 110(H) 70 - 99 mg/dL [facility] ALBUMIN 4.4 3.9 - 4.8 g/dL [facility] TOTAL PROTEIN 7.5 6.5 - 8.0 g/dL [facility] CALCIUM 9.4 8.4 - 10.3 mg/dL [facility] ALKALINE PHOSPHATASE 94 39 - 117 U/L [facility] TOTAL BILIRUBIN 0.6 0.0 - 1.2 mg/dL [facility] AST 18 0 - 37 U/L [facility] ALT 19 0 - 40 U/L [facility] GLOBULIN 3.1 1 - 4.8 g/dL [facility] EGFR 63 >59 mL/min/1.7 3m2 [facility] Comment:Estimated glomerular filtration rate calculated using the CKD-EPI refit equation. ANION GAP 16 10 - 20 mmol/L [facility] Blood 11/29/2024 1:37 PM EDT 11/29/2024 1:44 PM EDT us Salvador Jenkins MD LAB BLOOD ORDERABLES Final Res ult [facility] [address] [place] [address] * (ABNORMAL) CBC and differential (11/29/2024 1:37 PM EDT) WBC 11.95(H) 4.00 - 11.00 K/uL [facility] RBC 4.07 4.00 - 5.20 M/uL [facility] HGB 13.1 12.0 - 16.0 g/dL [facility] HCT 38.2 36.0 - 46.0 % [facility] PLT 278 150 - 450 K/uL [facility] MCV 93.9 80.0 - 100.0 fL [facility] MCH 32.2(H) 27.0 - 31.0 pg [facility] MCHC 34.3 32.0 - 36.0 g/dL [facility] RDW 12.0 11.5 - 14.5 % [facility] MPV 10.5 8.4 - 12.0 fL [facility] NRBC 0.00 0.00 /100 WBCs [facility] ABSOLUTE NRBC 0.00 0.00 K/uL [facility] DIFF METHOD Auto [facility] NEUTS 64.6 48.0 - 76.0 % [facility] LYMPHS 27.7 18.0 - 41.0 % [facility] MONOS 5.4 4.0 - 11.0 % [facility] EOS 1.5 0.0 - 5.0 % [facility] BASOS 0.5 0.0 - 1.5 % [facility] Granulocytes, immature (%) 0.3 0.0 - 0.9 % [facility] ABSOLUTE NEUTS 7.72(H) 1.92 - 7.60 K/uL [facility] ABSOLUTE LYMPHS 3.31 0.72 - 4.10 K/uL [facility] ABSOLUTE MONOS 0.64 0.16 - 1.10 K/uL [facility] ABSOLUTE EOS 0.18 0.00 - 0.50 K/uL [facility] ABSOLUTE BASOS 0.06 0.00 - 0.15 K/uL [facility] Granulocytes, immature 0.04 0.00 - 0.09 K/uL [facility] Blood 11/29/2024 1:37 PM EDT 11/29/2024 1:44 PM EDT us Salvador Jenkins MD LAB BLOOD ORDERABLES Final Res ult Performing Organization Address [facility] de Phone Number [address] [address] * (ABNORMAL) Ferritin (11/29/2024 1:37 PM EDT) FERRITIN 154(H) 13 - 150 ug/L [facility] Blood 11/29/2024 1:37 PM EDT 11/29/2024 1:44 PM EDT us Salvador Jenkins MD LAB BLOOD ORDERABLES Final Res ult Performing Organization Address [facility] Co de Phone Number [address] [address] * Vitamin B12 (11/29/2024 1:37 PM EDT) VITAMIN B12 1,000 232 - 1,245 pg/mL [facility] Blood 11/29/2024 1:37 PM EDT 11/29/2024 1:44 PM EDT us Salvador Jenkins MD LAB BLOOD ORDERABLES Final Res ult Performing Organization Address [facility]/ZIP Co de Phone Number [address] [address] * (ABNORMAL) Glucose (04/16/2018 9:58 AM EST) GLUCOSE 135(H) 70 - 99 mg/dL [facility] Blood 04/16/2018 9:58 AM EST 04/16/2018 10:00 AM EST us Sarthak Armstrong MD LAB BLOOD ORDERABLES Final R esult Performing Organization Address City/[facility] Co de Phone Number [address] [address] from Last 3 Months or Most Recently Relevant to Health Maintenance Insurance MEDICARE PART A & B [facility] MEDICARE PART [place] & [place] [facility] MED[facility]ARE PART [facility] & B [facility] B [employer] MED[facility] PART A & B [facility] B [facility] MEDICARE PART A & B [facility] Care Teams Material Disposition Inspector Relationship Specialty Start Date End Date Cooper Adam MD [address] [address] PCP - General Family Medicine 02/20/21 Salvador Jenkins MD [address] [place] [address] [email or web address] Primary Oncologist Medical Oncology 04/24/20 Faye Davey CNP [address] [place] [address] Nurse Practitioner Medical Oncology 02/27/21 Additional Source Comments The information contained in this document represents components of the legal health record. It is not the complete legal health record.[facility]
--- OUTSIDE RECORDS SUMMARY | 2025-01-23 09:53 | XMS_ITS | Encounter Summary ---
Author Organization [facility] Address [address] [facility] [address] [place] [address] Phone Care Team Providers Care Marketing Information Analyst Name Role Phone Salvador Jenkins MD Unavailable [phone] Cooper Adam MD Primary Care Provide r Faye Davey CHLORINATOR OPERATOR Unavailable Encounter Details Date Type Department Care Team (Late st Contact Info) Description 04/18/2022 Procedure Pass Echo Lab [address] [place] [address] Social History Tobacco Use Types Packs/Day Years [...] Description 07/15/2024 Procedure Pass Echo Lab [address] [place] [address] 01/24/2025 2:20 PM EDT Infusion [facility] [address] [place] [address] 02/21/2025 1:00 PM EDT Infusion [facility] [address] [place] [address] 07/04/2026 1:45 PM EST Appointment Echo Lab [address] [place] [address] Julián Galvez MD 22 [facility], [address] [place] [address] 07/18/2026 2:00 PM EDT Office Visit [facility] [address] [place] [address] Dr 3rd Floor, [address] [place] [address] Julián Galvez MD [address] [place] [address], [address] [address] documented as of this encounter Visit Diagnoses Not on filedocumented in this encounter Care Teams Marketing Information Analyst Relationship Specialty Start Date End Date Cooper Adam MD [address] [facility] [address] [place] [address] PCP - General Family Medicine 02/20/21 Salvador Jenkins MD [address] [place] [address] Primary Oncologist Medical Oncology 04/24/20 Faye Davey CNP [address] [place] [address] Nurse Practitioner Medical Oncology 02/27/21 documented as of this encounter Additional Source Comments The information contained in this document represents components of the legal health record. It is not the complete legal health record.[facility]
--- OUTSIDE RECORDS SUMMARY | 2025-01-23 09:53 | XMS_ITS | Encounter Summary ---
Author Organization [facility] Address [address] [place] [address] [place] [address] Phone Care Team Providers Care Respiratory Therapy Instructor Name Role Phone Salvador Jenkisn MD Unavailable [phone] Malika James MD Primary Care Provider [phone] Venancio Lomeli NP Primary Care Provider [phone] Cooper Adam MD Primary Care Provide r Faye Davey BOND MANAGER Unavailable Encounter Details Date Type Department Care Team (Late st Contact Info) Description 07/31/2020 Procedure Pass [facility], Ct Scan - [facility] [address] [place] [address] Social History Tobacco Use Types Packs/Day Years [...] Info) Description 07/15/2024 Procedure Pass Echo [facility] [place] [address] [place] [address] 01/24/2025 2:20 PM EDT Infusion [facility] [address] [place] [address] 02/21/2025 1:00 PM EDT Infusion [facility] [address] [place] [address] 07/04/2026 1:45 PM EST Appointment Echo Lab [address] [place] [address] Julián Galvez MD [address] [place] [address], [address] [address] 07/18/2026 2:00 PM EDT Office Visit [facility] [address] [place] [address] 3rd Floor, [address] [address] Julián Galvez MD [address] [place] [address] [email or web address] documented as of this encounter Visit Diagnoses Not on filedocumented in this encounter Care Teams Respiratory Therapy Instructor Relationship Specialty Start Date End Date Malika James MD [address] [place] [address] [email or web address] PCP - General 06/21/20 12/03/20 Venancio Lomeli NP [address] [place] [address] PCP - General Family Medicine 12/04/20 02/19/21 Cooper [facility] MD [facility] [address] [address] PCP - General Family Medicine 02/20/21 Salvador Jenkins MD [address] [place] [address] [email or web address] Primary Oncologist Medical Oncology 04/24/20 Faye Davey CNP [address] [place] [address] [email or web address] Nurse Practitioner Medical Oncology 02/27/21 documented as of this encounter Additional Source Comments The information contained in this document represents components of the legal health record. It is not the complete legal health record.[facility]
--- OUTSIDE RECORDS SUMMARY | 2025-01-23 09:53 | XMS_ITS | Encounter Summary ---
Author Organization [facility] Address [address] [place] [address] [place] [address] Phone Care Team Providers Care Stoneworking Belt Sander Name Role Phone Shiloh Gauthier MD Primary Care Provider Salvador Jenkins MD Unavailable [phone] Malika James MD Primary Care Provider [phone] Venancio Lomeli NP Primary Care Provider [phone] Cooper Adam MD Primary Care Provide r Faye Davey CNP Unavailable Encounter Details Date Type Department Care Team (Late st Contact Info) Description 06/13/2020 Procedure Pass [address] [place] [address] Social History Tobacco Use Types Packs/Day Years [...] Description 07/15/2024 Procedure Pass Echo Lab [address] [place] [address] 01/24/2025 2:20 PM EDT Infusion [facility] at [address] [address] 02/21/2025 1:00 PM EDT Infusion [facility] at [address] [address] 07/04/2026 1:45 PM EST Appointment Echo Lab [address] [place] [address] Julián Galvez MD [address] [place] [address], [address] [address] 07/18/2026 2:00 PM EDT Office Visit [facility] [address] [place] [address] Dr 3rd Floor, [address] [address] Julián Galvez MD [address] [place] [address], [address] [address] documented as of this encounter Visit Diagnoses Not on filedocumented in this encounter Care Teams Stoneworking Belt Sander Relationship Specialty Start Date End Date Shiloh Gauthier MD [address] [place] [address] PCP - General Family Medicine 04/14/19 06/20/20 Malika James MD [address] [facility] [address] [address] [email or web address] PCP - General 06/21/20 12/03/20 Venancio Lomeli NP [address] [place] [address] PCP - General Family Medicine 12/04/20 02/19/21 Cooper Adam MD [address] [address] PCP - General Family Medicine 02/20/21 Salvador Jenkins MD [address] [place] [address] Primary Oncologist Medical Oncology 04/24/20 Faye Davey CNP [address] [place] [address] Nurse Practitioner Medical Oncology 02/27/21 documented as of this encounter Additional Source Comments The information contained in this document represents components of the legal health record. It is not the complete legal health record.[facility]
== END ==
LOC: HO.HGI 09:12
PROVIDERS: PCP Family Medicine; Visit Provider Internal Medicine Gastroenterology
DX: K52.9 Noninfective gastroenteritis and colitis, unspecified (principal)
CPT/HCPCS: 99213